=== PATIENT | female | born 1945 | race African-American/Black ===

== ENCOUNTER 2016-04-13 18:34 | Emergency (ER) | payer OTHER, MEDICAID ==
[~2016-04-13] VITALS: Ht 149.9 cm; Wt 77.1 kg
[~2016-04-13 18:34] MED LIST: ALB5IS NEB; CILO50TA PO; FLUT100M7 INH; HYDR-2035 PO; IPRASOL39 NEB; LEVO75TA6 PO; NITR0.4S31 SL; OMEP20TA44 PO; POTA20TA53 PO; Q-PAP PO; TRIA25TA3 PO; VERA120T6 PO; VORI200T PO; WARF3TAB20 PO
[2016-04-13 20:21] LABS: Basophils # (auto) 0.1 uL; Basophils % (auto) 0.8 % (0.0-2.0); DEFINITIVE VIEW TRANSMISSION; Eosinophils # (auto) 0.1 uL; Eosinophils % (auto) 1.4 % (0.0-7.0); Hematocrit 25.7 % (36.0-46.0); Hemoglobin 8.2 g/dL (12.2-16.2); Lymphocytes # (auto) 2.1 uL; Lymphocytes % (auto) 32.1 % (10.0-50.0); Mean Corpuscular Hemoglobin 25.9 pg (28.0-32.0); Mean Corpuscular Volume 80.8 fL (80.0-100.0); Mean Platelet Volume 6.1 fL (7.4-10.4); Monocytes % (auto) 15.6 % (0.0-12.0); Neutrophils # (auto) 3.3 uL; Neutrophils % (auto) 50.1 % (37.0-80.0); Platelet Count (auto) 584 10^3/uL (140-450); White Blood Cell 6.6 10^3/uL (4.4-10.8)
[2016-04-13 20:23] LABS: Red Cell Distribution Width 21.7 % (11.6-16.0)
[2016-04-13 20:28] LABS: Albumin 2.7 g/dL (3.4-5.0); BUN/Creatinine Ratio 19.7; Potassium 3.2 mmol/L (3.5-5.1)
[2016-04-13 20:30] LABS: Bilirubin, Total 0.1 mg/dL (0.2-1.0); Total Protein 7.2 g/dL (6.4-8.2)
[2016-04-13 20:39] LABS: Magnesium 0.9 mg/dL (1.6-2.6)
[2016-04-13 20:52] LABS: Anisocytosis Slight; Hypochromia Slight; Platelet Estimate Increased
[2016-04-14] MEDS ORDERED: LEVOFLOXACIN 500 MG TAB PO ONE (05:30)
[2016-04-14] MEDS ORDERED: POTASSIUM CHL 20 Meq TABLET PO ONE (05:30)
[2016-04-14 05:40] VITALS: BP 139/90
== END 2016-04-14 05:45 | disposition home or self-care (01) ==
LOC: ER 18:38
DX: I11.0 Hypertensive heart disease with heart failure (principal); I50.9 Heart failure, unspecified; M19.90 Unspecified osteoarthritis, unspecified site; E87.6 Hypokalemia; J06.9 Acute upper respiratory infection, unspecified; J45.909 Unspecified asthma, uncomplicated; J44.9 Chronic obstructive pulmonary disease, unspecified; K21.9 Gastro-esophageal reflux disease without esophagitis; E07.9 Disorder of thyroid, unspecified; Z90.49 Acquired absence of other specified parts of digestive tract
CPT/HCPCS: 36415; 71020; 80053; 83735; 84484; 85025; 85049

== ENCOUNTER 2016-05-10 08:45 | Inpatient (IN) | payer OTHER, MEDICAID ==
[~2016-05-10] VITALS: Ht 149.9 cm; Wt 98.6 kg
[2016-05-10 11:22] LABS: Partial Thromboplastin Time 35.2 sec (22.64-33.71)
[2016-05-10 11:32] LABS: Albumin 3.4 g/dL (3.4-5.0); Alkaline Phosphatase 210 U/L (45-117); Anion Gap 12 (5-15); Aspartate Aminotransferase 61 U/L (15-37); BUN/Creatinine Ratio 19.2; Bilirubin, Total 0.5 mg/dL (0.2-1.0); Blood Urea Nitrogen 14 mg/dL (7-18); Calcium 9.2 mg/dL (8.5-10.1); Carbon Dioxide 21 mmol/L (21-32); Chloride 109 mmol/L (98-107); GFR African American 101 mL/min; GFR Non-African American 84 mL/min; Glucose 105 mg/dL (74-106); Potassium 3.9 mmol/L (3.5-5.1); Sodium 142 mmol/L (136-145)
[2016-05-10 11:38] LABS: INR 2.33 (0.9-1.15)
[2016-05-10 12:04] LABS: Basophils # (auto) 0 uL; Basophils % (auto) 0.1 % (0.0-2.0); DEFINITIVE VIEW TRANSMISSION; Eosinophils # (auto) 0 uL; Eosinophils % (auto) 0.3 % (0.0-7.0); Hematocrit 28.2 % (36.0-46.0); Hemoglobin 8.5 g/dL (12.2-16.2); Lymphocytes # (auto) 0.8 uL; Lymphocytes % (auto) 6.4 % (10.0-50.0); Mean Corpuscular Hemoglobin 24.5 pg (28.0-32.0); Mean Corpuscular Hgb Conc. 30.3 g/dL (32.0-36.0); Mean Corpuscular Volume 80.9 fL (80.0-100.0); Mean Platelet Volume 6.5 fL (7.4-10.4); Monocytes # (auto) 0.6 uL; Monocytes % (auto) 4.7 % (0.0-12.0); Neutrophils # (auto) 11.6 uL; Neutrophils % (auto) 88.5 % (37.0-80.0); Platelet Count (auto) 587 10^3/uL (140-450); White Blood Cell 13.1 10^3/uL (4.4-10.8)
[2016-05-10 12:07] LABS: Red Cell Distribution Width 20.8 % (11.6-16.0)
[2016-05-10 14:51] LABS: Anisocytosis Moderate; Hypochromia Slight; Platelet Estimate Increased
[2016-05-10] MEDS ORDERED: SODIUM CHLORIDE 0.9% 500 ML IVB ONE (16:14)
[2016-05-10] MEDS ORDERED: PANTOPRAZOLE SODIUM 40 MG/10 ML VIAL IV STA (16:14)
[2016-05-10] MEDS ORDERED: ONDANSETRON HCL 4 MG/2 ML VIAL IV ONE (17:15)
[2016-05-10] MEDS ORDERED: MORPHINE SULFATE 4 MG/ML SYRG IV ONE (17:15)
[2016-05-10 18:27] LABS: Partial Thromboplastin Time 43.8 sec (22.64-33.71)
[2016-05-10 18:41] LABS: INR 2.14 (0.9-1.15)
[2016-05-10] MEDS ORDERED: ALBUTEROL SULF 2.5 MG/0.5ML(0.5%) NEB SOLN NEB PRN (18:45)
[2016-05-10] MEDS ORDERED: LORazepam 0.5 MG TAB PO PRN (18:45)
[2016-05-10] MEDS ORDERED: MORPHINE SULF INJ 2 MG/ML SYRINGE 1ML IV PRN ×2 (18:45)
[2016-05-10] MEDS ORDERED: PROMETHAZINE HCL 25 MG/ML 1ML IV PRN (18:45)
[2016-05-10] MEDS ORDERED: OSELTAMIVIR 75 MG CAP PO ONE (18:45)
[2016-05-10] MEDS ORDERED: HYDROcodone-ACET 5/325MG TAB PO PRN (18:45)
[2016-05-10] MEDS ORDERED: ACETAMINOPHEN 500 MG TAB PO PRN (18:45)
[2016-05-10] MEDS ORDERED: NITROGLYCERIN 0.4 MG SL TAB SL PRN (18:45)
[2016-05-10] MEDS ORDERED: TEMAZEPAM 15 MG CAP PO PRN (18:45)
[2016-05-10] MEDS ORDERED: LACTULOSE 20Gm/30ML SOLN PO PRN ×2 (18:45)
[2016-05-10 18:46] LABS: Amylase 42 U/L (25-115)
[2016-05-10] MEDS ORDERED: ASPirin 81 mg TAB PO ONE (19:00)
[2016-05-10] MEDS: SODIUM CHLORIDE 0.9% 1,000 ML IV SCH ×3 (19:03→22:49)
[2016-05-10] MEDS ORDERED: WARFARIN SODIUM 1 MG TAB PO ONE (19:15)
[2016-05-10] MEDS: LEVOFLOXACIN 500MG 100 ML IV SCH (19:36)
[2016-05-10 20:50] VITALS: BP 148/77
[2016-05-10] MEDS: ATORVASTATIN 20 MG TAB PO SCH (21:38)
[2016-05-10] MEDS: CILOSTAZOL 100 MG TAB PO SCH (21:38)
[2016-05-10 21:49] VITALS: BP 148/77
[2016-05-10] MEDS: BUDESONIDE (INHALATION) 0.5 MG/2 ML NEB NEB SCH (22:00)
[2016-05-11] MEDS: IPRATROPIUM BROM 0.5 MG/2.5ML INH SOL NEB SCH ×4 (01:20→21:06)
[2016-05-11] MEDS: ALBUTEROL SULF 2.5 MG/0.5ML(0.5%) NEB SOLN NEB SCH ×4 (01:20→21:06)
[2016-05-11 05:00] VITALS: BP 128/54
[2016-05-11] MEDS: LEVOTHYROXINE SODIUM 25 MCG TAB PO SCH (06:23)
[2016-05-11 06:30] LABS: Basophils # (auto) 0 uL; DEFINITIVE VIEW TRANSMISSION; Eosinophils # (auto) 0 uL; Eosinophils % (auto) 0.4 % (0.0-7.0); Hematocrit 23.9 % (36.0-46.0); Hemoglobin 7.3 g/dL (12.2-16.2); Lymphocytes % (auto) 10.7 % (10.0-50.0); Mean Corpuscular Hemoglobin 24.5 pg (28.0-32.0); Mean Corpuscular Hgb Conc. 30.4 g/dL (32.0-36.0); Mean Corpuscular Volume 80.4 fL (80.0-100.0); Mean Platelet Volume 6.2 fL (7.4-10.4); Monocytes % (auto) 10.9 % (0.0-12.0); Platelet Count (auto) 464 10^3/uL (140-450)
[2016-05-11 06:47] LABS: Partial Thromboplastin Time 50.8 sec (22.64-33.71)
[2016-05-11 06:56] LABS: Red Cell Distribution Width 20.8 % (11.6-16.0)
[2016-05-11 06:57] LABS: Cholesterol 128 mg/dL (<200); HDL Cholesterol 60 mg/dL (40-59); LDL Cholesterol 65 mg/dL (<100); Triglycerides 71 mg/dL (<150)
[2016-05-11 07:16] LABS: Prothrombin Time 20.6 sec (9.37-12.3)
[2016-05-11 07:46] LABS: Anisocytosis Moderate; Ovalocytes FEW; Platelet Estimate Increased
[2016-05-11 07:47] LABS: Hypochromia Moderate
[2016-05-11 08:00] VITALS: BP 121/65
[2016-05-11] MEDS ORDERED: ADENOSINE 66 MG in GIVE UN-DILUTED 0 ML IV STA (08:32)
[2016-05-11 09:28] VITALS: BP 121/65
[2016-05-11] MEDS: VORICONAZOLE 50 MG TAB PO SCH ×2 (10:00→16:58)
[2016-05-11] MEDS ORDERED: TRIAMTER PO SCH (10:00)
[2016-05-11] MEDS ORDERED: HYDROCHLOROTHIAZIDE PO SCH (10:00)
[2016-05-11] MEDS ORDERED: OSELTAMIVIR 75 MG CAP PO SCH (10:00)
[2016-05-11] MEDS: BUDESONIDE (INHALATION) 0.5 MG/2 ML NEB NEB SCH ×2 (10:03→21:06)
[2016-05-11] MEDS: LEVOFLOXACIN 500MG 100 ML IV SCH (12:03)
[2016-05-11] MEDS: ASPirin 81 mg TAB PO SCH (12:03)
[2016-05-11] MEDS: PANTOPRAZOLE 40 MG TAB PO SCH (12:03)
[2016-05-11] MEDS: POTASSIUM CHL 20 Meq TABLET PO SCH (12:03)
[2016-05-11] MEDS: VERAPAMIL HCL 120 mg ER tab PO SCH (12:04)
[2016-05-11] MEDS: CILOSTAZOL 100 MG TAB PO SCH ×2 (12:06→21:28)
[2016-05-11] MEDS: NITROGLYCERIN 0.2MG/HR TOPICAL PATCH TD SCH (12:06)
[2016-05-11 12:13] VITALS: BP 134/94
[2016-05-11] MEDS ORDERED: HYDR12.56 PO (15:32)
[2016-05-11] MEDS ORDERED: WARFARIN SODIUM 2 MG TAB PO ONE (17:00)
[2016-05-11] MEDS ORDERED: HCTZ 25 MG TAB PO ONE (17:00)
[2016-05-11] MEDS ORDERED: METH2.5T3 PO (17:02)
[2016-05-11 17:24] VITALS: BP 129/55
[2016-05-11] MEDS: ATORVASTATIN 20 MG TAB PO SCH (21:27)
[2016-05-11 22:00] VITALS: BP 116/45
[2016-05-12] VITALS (10 sets, daily range): BP systolic 121–141; BP diastolic 48–65
[2016-05-12] MEDS: LEVOTHYROXINE SODIUM 25 MCG TAB PO SCH (06:32)
[2016-05-12 06:50] LABS: Partial Thromboplastin Time 47.1 sec (22.64-33.71)
[2016-05-12 06:52] LABS: INR 2.14 (0.9-1.15)
[2016-05-12] MEDS: IPRATROPIUM BROM 0.5 MG/2.5ML INH SOL NEB SCH ×4 (07:14→23:50)
[2016-05-12] MEDS: ALBUTEROL SULF 2.5 MG/0.5ML(0.5%) NEB SOLN NEB SCH ×4 (07:14→23:50)
[2016-05-12] MEDS: BUDESONIDE (INHALATION) 0.5 MG/2 ML NEB NEB SCH ×2 (07:14→23:50)
[2016-05-12 07:38] LABS: Basophils # (auto) 0 uL; Basophils % (auto) 0.3 % (0.0-2.0); DEFINITIVE VIEW TRANSMISSION; Eosinophils # (auto) 0 uL; Eosinophils % (auto) 0.5 % (0.0-7.0); Hematocrit 22.8 % (36.0-46.0); Lymphocytes # (auto) 1.2 uL; Lymphocytes % (auto) 12.3 % (10.0-50.0); Mean Corpuscular Hemoglobin 24.4 pg (28.0-32.0); Mean Corpuscular Volume 81.1 fL (80.0-100.0); Mean Platelet Volume 6.4 fL (7.4-10.4); Monocytes % (auto) 10.8 % (0.0-12.0); Neutrophils # (auto) 7.2 uL; Neutrophils % (auto) 76.1 % (37.0-80.0); Platelet Count (auto) 417 10^3/uL (140-450); White Blood Cell 9.4 10^3/uL (4.4-10.8)
[2016-05-12 07:52] LABS: Red Cell Distribution Width 21.4 % (11.6-16.0)
[2016-05-12 07:53] LABS: Hemoglobin 6.9 g/dL (12.2-16.2)
[2016-05-12] MEDS: SODIUM CHLORIDE 0.9% 1,000 ML IV SCH (10:33)
[2016-05-12] MEDS: HCTZ 25 MG TAB PO SCH (10:46)
[2016-05-12] MEDS: NITROGLYCERIN 0.2MG/HR TOPICAL PATCH TD SCH (10:48)
[2016-05-12] MEDS: VERAPAMIL HCL 120 mg ER tab PO SCH (10:49)
[2016-05-12] MEDS: PANTOPRAZOLE 40 MG TAB PO SCH (10:49)
[2016-05-12] MEDS: ASPirin 81 mg TAB PO SCH (10:49)
[2016-05-12] MEDS: POTASSIUM CHL 20 Meq TABLET PO SCH (10:50)
[2016-05-12] MEDS: CILOSTAZOL 100 MG TAB PO SCH ×2 (10:50→21:57)
[2016-05-12] MEDS: LEVOFLOXACIN 500MG 100 ML IV SCH (10:51)
[2016-05-12 11:11] LABS: Anisocytosis Moderate; Hypochromia Moderate; Ovalocytes FEW; Platelet Estimate Adequate
[2016-05-12] MEDS: VORICONAZOLE 50 MG TAB PO SCH (11:18)
[2016-05-12] MEDS ORDERED: WARFARIN SODIUM 1 MG TAB PO ONE (17:00)
[2016-05-12] MEDS: ATORVASTATIN 20 MG TAB PO SCH (21:57)
[2016-05-13] VITALS (9 sets, daily range): BP systolic 132–149; BP diastolic 54–72
[2016-05-13] MEDS: IPRATROPIUM BROM 0.5 MG/2.5ML INH SOL NEB SCH ×4 (06:04→23:05)
[2016-05-13] MEDS: ALBUTEROL SULF 2.5 MG/0.5ML(0.5%) NEB SOLN NEB SCH ×4 (06:04→23:05)
[2016-05-13] MEDS: BUDESONIDE (INHALATION) 0.5 MG/2 ML NEB NEB SCH ×2 (06:12→23:05)
[2016-05-13 06:37] LABS: Partial Thromboplastin Time 44.8 sec (22.64-33.71)
[2016-05-13 06:42] LABS: INR 1.87 (0.9-1.15); Prothrombin Time 19.3 sec (9.37-12.3)
[2016-05-13 06:55] LABS: Basophils # (auto) 0 uL; Basophils % (auto) 0.1 % (0.0-2.0); DEFINITIVE VIEW TRANSMISSION; Eosinophils # (auto) 0.1 uL; Eosinophils % (auto) 1.2 % (0.0-7.0); Hematocrit 29.3 % (36.0-46.0); Hemoglobin 9.1 g/dL (12.2-16.2); Lymphocytes % (auto) 12.5 % (10.0-50.0); Mean Corpuscular Hemoglobin 25.6 pg (28.0-32.0); Mean Corpuscular Hgb Conc. 31.1 g/dL (32.0-36.0); Mean Corpuscular Volume 82.2 fL (80.0-100.0); Mean Platelet Volume 6.6 fL (7.4-10.4); Monocytes # (auto) 0.9 uL; Monocytes % (auto) 10.6 % (0.0-12.0); Neutrophils # (auto) 6.3 uL; Neutrophils % (auto) 75.6 % (37.0-80.0); Platelet Count (auto) 399 10^3/uL (140-450); White Blood Cell 8.4 10^3/uL (4.4-10.8)
[2016-05-13 06:56] LABS: Red Cell Distribution Width 20.1 % (11.6-16.0)
[2016-05-13] MEDS: SODIUM CHLORIDE 0.9% 1,000 ML IV SCH ×2 (07:08→13:13)
[2016-05-13] MEDS: LEVOTHYROXINE SODIUM 25 MCG TAB PO SCH (07:08)
[2016-05-13 08:53] LABS: Anisocytosis Slight; Giant Platelets Few; Hypochromia Slight; Ovalocytes FEW; Platelet Estimate Adequate
[2016-05-13] MEDS: NITROGLYCERIN 0.2MG/HR TOPICAL PATCH TD SCH (10:00)
[2016-05-13] MEDS: POTASSIUM CHL 20 Meq TABLET PO SCH (10:05)
[2016-05-13] MEDS: CILOSTAZOL 100 MG TAB PO SCH ×2 (10:05→21:40)
[2016-05-13] MEDS: PANTOPRAZOLE 40 MG TAB PO SCH (10:05)
[2016-05-13] MEDS: HCTZ 25 MG TAB PO SCH (10:06)
[2016-05-13] MEDS: VERAPAMIL HCL 120 mg ER tab PO SCH (10:07)
[2016-05-13] MEDS: LEVOFLOXACIN 500MG 100 ML IV SCH (10:07)
[2016-05-13] MEDS ORDERED: WARFARIN SODIUM 2 MG TAB PO ONE (17:00)
[2016-05-13] MEDS: VORICONAZOLE 50 MG TAB PO SCH (17:40)
[2016-05-13] MEDS: ATORVASTATIN 20 MG TAB PO SCH (21:40)
[2016-05-14 00:56] VITALS: BP 79/79
[2016-05-14 04:56] VITALS: BP 159/77
[2016-05-14] MEDS: SODIUM CHLORIDE 0.9% 1,000 ML IV SCH (05:27)
[2016-05-14 05:39] LABS: Basophils # (auto) 0.1 uL; DEFINITIVE VIEW TRANSMISSION; Eosinophils # (auto) 0.1 uL; Hematocrit 29.6 % (36.0-46.0); Hemoglobin 9.5 g/dL (12.2-16.2); Lymphocytes % (auto) 15.6 % (10.0-50.0); Mean Corpuscular Hgb Conc. 32.1 g/dL (32.0-36.0); Mean Platelet Volume 6.6 fL (7.4-10.4); Monocytes # (auto) 0.7 uL; Monocytes % (auto) 10.7 % (0.0-12.0); Neutrophils # (auto) 4.8 uL; Neutrophils % (auto) 71.7 % (37.0-80.0); Platelet Count (auto) 438 10^3/uL (140-450); White Blood Cell 6.7 10^3/uL (4.4-10.8)
[2016-05-14 05:43] LABS: Red Cell Distribution Width 20.5 % (11.6-16.0)
[2016-05-14 05:51] LABS: Partial Thromboplastin Time 29.2 sec (22.64-33.71)
[2016-05-14] MEDS: IPRATROPIUM BROM 0.5 MG/2.5ML INH SOL NEB SCH ×2 (05:57→11:38)
[2016-05-14] MEDS: ALBUTEROL SULF 2.5 MG/0.5ML(0.5%) NEB SOLN NEB SCH ×2 (05:57→11:38)
[2016-05-14] MEDS: BUDESONIDE (INHALATION) 0.5 MG/2 ML NEB NEB SCH (05:57)
[2016-05-14 06:11] LABS: INR 1.75 (0.9-1.15)
[2016-05-14] MEDS: LEVOTHYROXINE SODIUM 25 MCG TAB PO SCH (06:26)
[2016-05-14 06:52] LABS: Anisocytosis Slight; Ovalocytes FEW; Platelet Estimate Adequate
[2016-05-14 09:00] VITALS: BP 150/71
[2016-05-14] MEDS: LEVOFLOXACIN 500MG 100 ML IV SCH (09:54)
[2016-05-14] MEDS: NITROGLYCERIN 0.2MG/HR TOPICAL PATCH TD SCH (09:55)
[2016-05-14] MEDS: CILOSTAZOL 100 MG TAB PO SCH (09:55)
[2016-05-14] MEDS: VERAPAMIL HCL 120 mg ER tab PO SCH (09:56)
[2016-05-14] MEDS: POTASSIUM CHL 20 Meq TABLET PO SCH (09:56)
[2016-05-14] MEDS: HCTZ 25 MG TAB PO SCH (09:57)
[2016-05-14] MEDS: PANTOPRAZOLE 40 MG TAB PO SCH (10:01)
[2016-05-14 13:38] VITALS: BP 141/69
[2016-05-14] MEDS ORDERED: WARFARIN SODIUM 2.5 MG TAB PO ONE (17:00)
[2016-05-14 17:13] VITALS: BP 147/62
[2016-05-14 18:24] VITALS: BP 147/62
[2016-05-15] MEDS ORDERED: LEVOFLOXACIN 500 MG TAB PO SCH (10:00)
== END 2016-05-14 19:00 | disposition home or self-care (01) | DRG 191 ==
LOC: ER 08:47 → TELE 08:48 → TELE-EAST 20:10
PROVIDERS: ADMIT Internal Medicine; ATTEND Internal Medicine Pulmonary Disease
DX: J44.1 Chronic obstructive pulmonary disease with (acute) exacerbation (principal); B44.1 Other pulmonary aspergillosis; Z68.41 Body mass index [BMI] 40.0-44.9, adult; K21.9 Gastro-esophageal reflux disease without esophagitis; K44.9 Diaphragmatic hernia without obstruction or gangrene; E66.9 Obesity, unspecified; D64.9 Anemia, unspecified; E03.9 Hypothyroidism, unspecified; I10 Essential (primary) hypertension; I35.0 Nonrheumatic aortic (valve) stenosis; I48.0 Paroxysmal atrial fibrillation; I73.9 Peripheral vascular disease, unspecified; J45.909 Unspecified asthma, uncomplicated; K43.9 Ventral hernia without obstruction or gangrene; D47.3 Essential (hemorrhagic) thrombocythemia; D72.829 Elevated white blood cell count, unspecified; M54.9 Dorsalgia, unspecified; G89.29 Other chronic pain; M19.90 Unspecified osteoarthritis, unspecified site; Z82.3 Family history of stroke; Z82.49 Family history of ischemic heart disease and other diseases of the circulatory system; Z83.3 Family history of diabetes mellitus; Z86.711 Personal history of pulmonary embolism; Z86.718 Personal history of other venous thrombosis and embolism; Z87.891 Personal history of nicotine dependence; Z88.6 Allergy status to analgesic agent; Z88.0 Allergy status to penicillin; Z88.8 Allergy status to other drugs, medicaments and biological substances; Z79.899 Other long term (current) drug therapy; Z90.49 Acquired absence of other specified parts of digestive tract; Z98.49 Cataract extraction status, unspecified eye; Z90.89 Acquired absence of other organs; Z80.9 Family history of malignant neoplasm, unspecified
CPT/HCPCS: 36415; 71010; 71020; 74176; 78452; 80053; 80061; 82150; 82270; 82550; 82728; 83690; 84484; 85025; 85379; 85610; 85652; 85730; 86141; 86850; 86900; 86901; 86920; 87070; 87205; 87400; 93005; 93017; 93306; 94640; 94660; 94761; 96361; 96374; 96375; C9113; J0153; J1956; J2405

== ENCOUNTER 2016-10-29 10:58 | Inpatient (IN) | payer OTHER, MEDICAID ==
[~2016-10-29] VITALS: Ht 149.9 cm; Wt 67.8 kg
[~2016-10-29 10:58] MED LIST changes: +DOCU-94 PO; +FURO20TA3 PO; +HYDR12.56 PO; +LOSA25TA9 PO; +METH2.5T3 PO; +ONDA4TAB5 PO; -TRIA25TA3 PO
[2016-10-29] MEDS ORDERED: SODIUM CHLORIDE 0.9% 1,000 ML IV ONE (11:11)
[2016-10-29] MEDS ORDERED: ONDANSETRON ODT 4 MG TAB PO ONE (11:15)
[2016-10-29] MEDS ORDERED: LORazepam 2MG/ML-1ML VIAL IV ONE (11:15)
[2016-10-29 12:03] LABS: Basophils # (auto) 0 uL; Basophils % (auto) 0.6 % (0.0-2.0); CONDITION Y; DEFINITIVE SEE PRINTOUT; Eosinophils # (auto) 0 uL; Eosinophils % (auto) 0.7 % (0.0-7.0); Hematocrit 27.2 % (36.0-46.0); Hemoglobin 9.2 g/dL (12.2-16.2); Lymphocytes # (auto) 1.2 uL; Lymphocytes % (auto) 20.9 % (10.0-50.0); Mean Corpuscular Hgb Conc. 33.9 g/dL (32.0-36.0); Mean Corpuscular Volume 91.5 fL (80.0-100.0); Mean Platelet Volume 6.8 fL (7.4-10.4); Monocytes # (auto) 0.5 uL; Monocytes % (auto) 8.5 % (0.0-12.0); Neutrophils # (auto) 4.1 uL; Neutrophils % (auto) 69.3 % (37.0-80.0); Platelet Count (auto) 434 10^3/uL (140-450); White Blood Cell 5.9 10^3/uL (4.4-10.8)
[2016-10-29 12:08] LABS: Red Cell Distribution Width 21.8 % (11.6-16.0)
[2016-10-29 12:15] LABS: INR 3.28 (0.9-1.15); Partial Thromboplastin Time 52.4 sec (22.64-33.71)
[2016-10-29 12:19] LABS: Prothrombin Time 36.2 sec (9.37-12.3)
[2016-10-29 12:40] LABS: Alkaline Phosphatase 100 U/L (45-117); Anion Gap 14 (5-15); Aspartate Aminotransferase 25 U/L (15-37); Bilirubin, Total 0.4 mg/dL (0.2-1.0); Blood Urea Nitrogen 12 mg/dL (7-18); Carbon Dioxide 21 mmol/L (21-32); Chloride 103 mmol/L (98-107); GFR African American 70 mL/min; GFR Non-African American 58 mL/min; Glucose 61 mg/dL (74-106); Potassium 3.1 mmol/L (3.5-5.1); Sodium 138 mmol/L (136-145); Total Protein 7.7 g/dL (6.4-8.2)
[2016-10-29 12:52] LABS: Calcium 5.6 mg/dL (8.5-10.1)
[2016-10-29 13:21] LABS: Anisocytosis Slight; Burr Cells FEW; Platelet Estimate Adequate
[2016-10-29] MEDS ORDERED: NITROGLYCERIN 0.4 MG SL TAB SL PRN (13:30)
[2016-10-29] MEDS ORDERED: VANCOMYCIN PER PHARMACY 0 MG IV SCH (13:30)
[2016-10-29] MEDS ORDERED: MORPHINE SULF INJ 2 MG/ML SYRINGE 1ML IV PRN (13:30)
[2016-10-29] MEDS ORDERED: CALCIUM GLUC 4.65meq/50ml D5AE 50 ML IV ONE (13:30)
[2016-10-29] MEDS ORDERED: POTASSIUM CHL 10% (20 MEQ/15ML) ORAL SOLN PO ONE (13:30)
[2016-10-29] MEDS ORDERED: ONDANSETRON HCL 4 MG/2 ML VIAL IV PRN (13:30)
[2016-10-29] MEDS ORDERED: ACETAMINOPHEN 650 mg PER 20 mL UD PO PRN (13:30)
[2016-10-29 14:05] LABS: Basophils # (auto) 0 uL; Basophils % (auto) 0.6 % (0.0-2.0); CONDITION Y; DEFINITIVE SEE PRINTOUT; Eosinophils # (auto) 0 uL; Eosinophils % (auto) 0.6 % (0.0-7.0); Hematocrit 27.6 % (36.0-46.0); Hemoglobin 9.1 g/dL (12.2-16.2); Lymphocytes % (auto) 18.1 % (10.0-50.0); Mean Corpuscular Hemoglobin 30.5 pg (28.0-32.0); Mean Corpuscular Hgb Conc. 33.1 g/dL (32.0-36.0); Mean Corpuscular Volume 92.2 fL (80.0-100.0); Mean Platelet Volume 6.4 fL (7.4-10.4); Monocytes # (auto) 0.4 uL; Monocytes % (auto) 6.8 % (0.0-12.0); Neutrophils # (auto) 4.2 uL; Neutrophils % (auto) 73.9 % (37.0-80.0); Platelet Count (auto) 415 10^3/uL (140-450); White Blood Cell 5.7 10^3/uL (4.4-10.8)
[2016-10-29 14:10] LABS: Red Cell Distribution Width 22.5 % (11.6-16.0)
[2016-10-29] MEDS: SODIUM CHLORIDE 0.9% 1,000 ML IV SCH (14:15)
[2016-10-29 14:21] LABS: INR 3.69 (0.9-1.15); Partial Thromboplastin Time 41.6 sec (22.64-33.71)
[2016-10-29 14:22] LABS: Prothrombin Time 40.8 sec (9.37-12.3)
[2016-10-29 14:27] LABS: Albumin 2.9 g/dL (3.4-5.0); Alkaline Phosphatase 96 U/L (45-117); Anion Gap 12 (5-15); Aspartate Aminotransferase 23 U/L (15-37); BUN/Creatinine Ratio 12.1; Bilirubin, Total 0.4 mg/dL (0.2-1.0); Blood Urea Nitrogen 11 mg/dL (7-18); Carbon Dioxide 22 mmol/L (21-32); Chloride 104 mmol/L (98-107); GFR African American 78 mL/min; GFR Non-African American 65 mL/min; Glucose 56 mg/dL (74-106); Sodium 138 mmol/L (136-145); Total Protein 7.3 g/dL (6.4-8.2)
[2016-10-29 14:29] LABS: Potassium 2.8 mmol/L (3.5-5.1)
[2016-10-29 14:30] LABS: Calcium 5.5 mg/dL (8.5-10.1)
[2016-10-29 14:52] LABS: Anisocytosis Moderate; Ovalocytes FEW; Platelet Estimate Adequate
[2016-10-29 14:53] LABS: Burr Cells FEW
[2016-10-29 14:58] LABS: B-Type Natriuretic Peptide 15.99 pg/mL (0-100)
[2016-10-29 15:00] LABS: Temperature: 23.1 C (20.0-25.0)
[2016-10-29] MEDS ORDERED: VANCOMYCIN 750 MG in D5W 5% 250 ML IV ONE (16:00)
[2016-10-29] MEDS: ALBUTEROL SULF 2.5 MG/0.5ML(0.5%) NEB SOLN NEB PRN (18:45)
[2016-10-29 19:36] LABS: Urine RBC None Seen /hpf (0 - 4)
[2016-10-29 19:57] LABS: Urine Bilirubin Negative (Negative); Urine Blood Negative /uL (Negative); Urine Color Yellow (Yellow); Urine Glucose Normal (Normal); Urine Hyaline Cast MANY /lpf (0 - 2); Urine Ketone Negative (Negative); Urine Mucus FEW (None Seen); Urine Nitrite Negative (Negative); Urine Squamous Epithelial Cell FEW /hpf (<5); Urine Urobilinogen Normal (Negative)
[2016-10-29 21:13] LABS: Potassium 3.3 mmol/L (3.5-5.1)
[2016-10-29 21:20] LABS: Calcium 5.4 mg/dL (8.5-10.1)
[2016-10-29 21:22] VITALS: BP 116/59
[2016-10-29 22:10] VITALS: BP 116/59
[2016-10-29 23:04] VITALS: BP 114/58
[2016-10-30 05:00] VITALS: BP 108/51
[2016-10-30] MEDS: HYDROcodone-ACET 5/325MG TAB PO PRN ×2 (05:04→14:53)
[2016-10-30 06:08] LABS: Basophils # (auto) 0 uL; Basophils % (auto) 0.7 % (0.0-2.0); CONDITION Y; DEFINITIVE SEE PRINTOUT; Eosinophils # (auto) 0 uL; Eosinophils % (auto) 0.9 % (0.0-7.0); Hematocrit 27.4 % (36.0-46.0); Hemoglobin 8.7 g/dL (12.2-16.2); Lymphocytes # (auto) 1.5 uL; Lymphocytes % (auto) 35.2 % (10.0-50.0); Mean Corpuscular Hemoglobin 30.2 pg (28.0-32.0); Mean Corpuscular Hgb Conc. 31.9 g/dL (32.0-36.0); Mean Corpuscular Volume 94.9 fL (80.0-100.0); Mean Platelet Volume 6.8 fL (7.4-10.4); Monocytes # (auto) 0.2 uL; Monocytes % (auto) 5.2 % (0.0-12.0); Neutrophils # (auto) 2.4 uL; Platelet Count (auto) 409 10^3/uL (140-450); White Blood Cell 4.2 10^3/uL (4.4-10.8)
[2016-10-30 06:11] LABS: Red Cell Distribution Width 21.8 % (11.6-16.0)
[2016-10-30 06:23] LABS: INR 3.22 (0.9-1.15)
[2016-10-30 06:26] LABS: Prothrombin Time 35.5 sec (9.37-12.3)
[2016-10-30 06:27] LABS: Albumin 2.7 g/dL (3.4-5.0); BUN/Creatinine Ratio 14.7; Potassium 3.4 mmol/L (3.5-5.1)
[2016-10-30 06:30] LABS: Bilirubin, Total 0.4 mg/dL (0.2-1.0); Total Protein 6.6 g/dL (6.4-8.2)
[2016-10-30 06:31] LABS: Calcium 5.7 mg/dL (8.5-10.1)
[2016-10-30 06:39] LABS: Platelet Estimate Adequate
[2016-10-30 06:40] LABS: Anisocytosis Moderate; Hypersegmented Neutrophils Present; Ovalocytes FEW
[2016-10-30] MEDS: ALBUTEROL SULF 2.5 MG/0.5ML(0.5%) NEB SOLN NEB PRN (07:04)
[2016-10-30] MEDS ORDERED: CALCIUM CHL 100MG/ML 2,000 MG in D5W 5% 100 ML IV ONE (07:30)
[2016-10-30 08:44] VITALS: BP 110/73
[2016-10-30] MEDS ORDERED: POTASSIUM CHL 20 Meq TABLET PO ONE (09:30)
[2016-10-30] MEDS: PANTOPRAZOLE 40 MG TAB PO SCH (09:39)
[2016-10-30] MEDS: LEVOTHYROXINE SODIUM 25 MCG TAB PO SCH (09:39)
[2016-10-30] MEDS: FUROSEMIDE 20 MG/2 ML VIAL IV SCH (09:39)
[2016-10-30] MEDS: LOSARTAN POTASSIUM 25 MG TAB PO SCH (09:40)
[2016-10-30] MEDS: FOLIC ACID 1 MG TAB PO SCH (09:40)
[2016-10-30 12:00] VITALS: BP 108/57
[2016-10-30] MEDS: VANCOMYCIN 1GM/250ML D5W 250 ML IV SCH (12:06)
[2016-10-30] MEDS: SODIUM CHLORIDE 0.9% 1,000 ML IV SCH (13:30)
[2016-10-30] MEDS: cefTRIAXone 1GM/50ML D5W 50 ML IV SCH (14:53)
[2016-10-30 17:00] VITALS: BP 106/73
[2016-10-30 22:00] VITALS: BP 130/63
[2016-10-31] MEDS ORDERED: PROMETHAZINE HCL 25 MG/ML 1ML IV PRN (01:30)
[2016-10-31] MEDS ORDERED: MORPHINE SULF INJ 2 MG/ML SYRINGE 1ML IV PRN (01:30)
[2016-10-31 04:00] VITALS: BP 123/63
[2016-10-31 06:17] LABS: Basophils # (auto) 0 uL; Basophils % (auto) 0.6 % (0.0-2.0); CONDITION Y; DEFINITIVE SEE PRINTOUT; Eosinophils # (auto) 0 uL; Eosinophils % (auto) 1.1 % (0.0-7.0); Hematocrit 30.5 % (36.0-46.0); Hemoglobin 9.9 g/dL (12.2-16.2); Lymphocytes # (auto) 0.9 uL; Lymphocytes % (auto) 24.2 % (10.0-50.0); Mean Corpuscular Hemoglobin 30.5 pg (28.0-32.0); Mean Corpuscular Hgb Conc. 32.5 g/dL (32.0-36.0); Mean Corpuscular Volume 94.1 fL (80.0-100.0); Mean Platelet Volume 6.9 fL (7.4-10.4); Monocytes # (auto) 0.3 uL; Monocytes % (auto) 6.8 % (0.0-12.0); Neutrophils # (auto) 2.6 uL; Neutrophils % (auto) 67.3 % (37.0-80.0); Platelet Count (auto) 388 10^3/uL (140-450); White Blood Cell 3.9 10^3/uL (4.4-10.8)
[2016-10-31 06:33] LABS: INR 2.53 (0.9-1.15)
[2016-10-31 06:34] LABS: Albumin 2.3 g/dL (3.4-5.0); Calcium 6.9 mg/dL (8.5-10.1); Potassium 3.9 mmol/L (3.5-5.1)
[2016-10-31 06:36] LABS: BUN/Creatinine Ratio 14.3; Red Cell Distribution Width 21.7 % (11.6-16.0)
[2016-10-31 06:40] LABS: Bilirubin, Total 0.5 mg/dL (0.2-1.0); Total Protein 6.2 g/dL (6.4-8.2)
[2016-10-31 06:49] LABS: Prothrombin Time 27.8 sec (9.37-12.3)
[2016-10-31 07:16] LABS: Anisocytosis Moderate; Burr Cells FEW; Ovalocytes FEW; Platelet Estimate Adequate; Schistocytes FEW
[2016-10-31 08:00] VITALS: BP_SYST 107; BP_SYST 110; BP_DIAS 58; BP_DIAS 73
[2016-10-31] MEDS: VANCOMYCIN 1GM/250ML D5W 250 ML IV SCH (09:05)
[2016-10-31] MEDS: PANTOPRAZOLE 40 MG TAB PO SCH (10:23)
[2016-10-31] MEDS: FOLIC ACID 1 MG TAB PO SCH (10:23)
[2016-10-31] MEDS: LEVOTHYROXINE SODIUM 25 MCG TAB PO SCH (10:23)
[2016-10-31] MEDS: cefTRIAXone 1GM/50ML D5W 50 ML IV SCH (10:25)
[2016-10-31] MEDS: SODIUM CHLORIDE 0.9% 1,000 ML IV SCH ×2 (11:00→23:46)
[2016-10-31 13:00] VITALS: BP 111/54
[2016-10-31] MEDS: HYDROcodone-ACET 5/325MG TAB PO PRN ×2 (13:47→20:19)
[2016-10-31] MEDS: LOSARTAN POTASSIUM 25 MG TAB PO SCH (13:47)
[2016-10-31] MEDS: FUROSEMIDE 20 MG/2 ML VIAL IV SCH (13:48)
[2016-10-31 16:38] VITALS: BP 108/60
[2016-10-31 20:00] VITALS: BP 104/76
[2016-10-31 22:00] VITALS: BP 104/76
[2016-11-01 05:30] VITALS: BP 113/66
[2016-11-01] MEDS: LEVOTHYROXINE SODIUM 25 MCG TAB PO SCH (06:07)
[2016-11-01] MEDS: HYDROcodone-ACET 5/325MG TAB PO PRN ×2 (06:08→23:59)
[2016-11-01 06:53] LABS: Basophils # (auto) 0 uL; Basophils % (auto) 0.9 % (0.0-2.0); CONDITION Y; DEFINITIVE SEE PRINTOUT; Eosinophils # (auto) 0.1 uL; Eosinophils % (auto) 1.7 % (0.0-7.0); Hematocrit 27.4 % (36.0-46.0); Hemoglobin 9.1 g/dL (12.2-16.2); Lymphocytes # (auto) 0.9 uL; Mean Corpuscular Hemoglobin 31.2 pg (28.0-32.0); Mean Corpuscular Hgb Conc. 33.3 g/dL (32.0-36.0); Mean Corpuscular Volume 93.7 fL (80.0-100.0); Mean Platelet Volume 6.9 fL (7.4-10.4); Monocytes # (auto) 0.4 uL; Monocytes % (auto) 8.7 % (0.0-12.0); Neutrophils # (auto) 2.7 uL; Neutrophils % (auto) 66.7 % (37.0-80.0); Platelet Count (auto) 400 10^3/uL (140-450); White Blood Cell 4.1 10^3/uL (4.4-10.8)
[2016-11-01 07:12] LABS: Albumin 2.2 g/dL (3.4-5.0); BUN/Creatinine Ratio 14.6; Bilirubin, Total 0.4 mg/dL (0.2-1.0); Calcium 6.3 mg/dL (8.5-10.1); Potassium 3.5 mmol/L (3.5-5.1)
[2016-11-01 08:00] VITALS: BP 115/44
[2016-11-01 08:03] LABS: Red Cell Distribution Width 20.8 % (11.6-16.0)
[2016-11-01 08:04] LABS: Anisocytosis Slight; Platelet Estimate Adequate
[2016-11-01 08:30] VITALS: BP 115/74
[2016-11-01] MEDS: FUROSEMIDE 20 MG/2 ML VIAL IV SCH (10:00)
[2016-11-01] MEDS: LOSARTAN POTASSIUM 25 MG TAB PO SCH (10:00)
[2016-11-01] MEDS: ALBUTEROL SULF 2.5 MG/0.5ML(0.5%) NEB SOLN NEB PRN (10:00)
[2016-11-01] MEDS: PANTOPRAZOLE 40 MG TAB PO SCH (10:03)
[2016-11-01] MEDS: FOLIC ACID 1 MG TAB PO SCH (10:03)
[2016-11-01] MEDS: VANCOMYCIN 1GM/250ML D5W 250 ML IV SCH (10:04)
[2016-11-01 12:03] VITALS: BP 114/58
[2016-11-01] MEDS: cefTRIAXone 1GM/50ML D5W 50 ML IV SCH (13:33)
[2016-11-01] MEDS: SODIUM CHLORIDE 0.9% 1,000 ML IV SCH (15:52)
[2016-11-01 16:17] VITALS: BP 119/62
[2016-11-01 22:00] VITALS: BP 124/71
[2016-11-02] VITALS (8 sets, daily range): BP systolic 87–132; BP diastolic 53–75
[2016-11-02] MEDS: VANCOMYCIN 1GM/250ML D5W 250 ML IV SCH ×2 (04:19→22:26)
[2016-11-02] MEDS: SODIUM CHLORIDE 0.9% 1,000 ML IV SCH ×2 (05:54→10:12)
[2016-11-02] MEDS: LEVOTHYROXINE SODIUM 25 MCG TAB PO SCH (06:33)
[2016-11-02 06:59] LABS: BUN/Creatinine Ratio 16.3; Potassium 3.7 mmol/L (3.5-5.1)
[2016-11-02 08:46] LABS: INR 1.44 (0.9-1.15)
[2016-11-02 08:51] LABS: Prothrombin Time 15.7 sec (9.37-12.3)
[2016-11-02] MEDS: LOSARTAN POTASSIUM 25 MG TAB PO SCH (10:00)
[2016-11-02] MEDS: cefTRIAXone 1GM/50ML D5W 50 ML IV SCH (10:12)
[2016-11-02] MEDS: FOLIC ACID 1 MG TAB PO SCH (10:13)
[2016-11-02] MEDS: PANTOPRAZOLE 40 MG TAB PO SCH (10:13)
[2016-11-02] MEDS: FUROSEMIDE 20 MG/2 ML VIAL IV SCH (10:13)
[2016-11-02] MEDS: diphenhdrAMINE HCL 25 MG CAP PO PRN (15:01)
[2016-11-02] MEDS: ALBUTEROL SULF 2.5 MG/0.5ML(0.5%) NEB SOLN NEB PRN (19:45)
[2016-11-02] MEDS ORDERED: diphenhdrAMINE HCL 25 MG CAP PO ONE (22:00)
[2016-11-03 04:54] VITALS: BP 99/52
[2016-11-03] MEDS: LEVOTHYROXINE SODIUM 25 MCG TAB PO SCH (06:35)
[2016-11-03 06:49] LABS: Basophils # (auto) 0 uL; Basophils % (auto) 0.6 % (0.0-2.0); CONDITION Y; DEFINITIVE SEE PRINTOUT; Eosinophils # (auto) 0.1 uL; Eosinophils % (auto) 2.3 % (0.0-7.0); Hematocrit 25.6 % (36.0-46.0); Hemoglobin 8.5 g/dL (12.2-16.2); Lymphocytes # (auto) 1.3 uL; Mean Corpuscular Volume 93.9 fL (80.0-100.0); Mean Platelet Volume 6.5 fL (7.4-10.4); Monocytes # (auto) 0.6 uL; Monocytes % (auto) 15.3 % (0.0-12.0); Neutrophils # (auto) 2.1 uL; Neutrophils % (auto) 50.8 % (37.0-80.0); Platelet Count (auto) 347 10^3/uL (140-450); SUSPECT SEE PRINTOUT; White Blood Cell 4.2 10^3/uL (4.4-10.8)
[2016-11-03 06:50] LABS: Red Cell Distribution Width 20.5 % (11.6-16.0)
[2016-11-03] MEDS: ALBUTEROL SULF 2.5 MG/0.5ML(0.5%) NEB SOLN NEB PRN ×2 (06:54→20:02)
[2016-11-03 06:59] LABS: BUN/Creatinine Ratio 17.1; Potassium 3.2 mmol/L (3.5-5.1)
[2016-11-03 07:01] LABS: Total Protein 5.6 g/dL (6.4-8.2)
[2016-11-03 07:19] LABS: Bilirubin, Total 0.4 mg/dL (0.2-1.0)
[2016-11-03 07:38] LABS: Anisocytosis Slight; Macrocytosis Slight; Platelet Estimate Adequate; Polychromasia Slight
[2016-11-03 08:00] VITALS: BP 107/53
[2016-11-03] MEDS: FOLIC ACID 1 MG TAB PO SCH (09:46)
[2016-11-03] MEDS: cefTRIAXone 1GM/50ML D5W 50 ML IV SCH (09:46)
[2016-11-03] MEDS: FUROSEMIDE 20 MG/2 ML VIAL IV SCH (09:46)
[2016-11-03] MEDS: PANTOPRAZOLE 40 MG TAB PO SCH (09:46)
[2016-11-03] MEDS: LOSARTAN POTASSIUM 25 MG TAB PO SCH (10:00)
[2016-11-03] MEDS ORDERED: POTASSIUM CHLORIDE 40 MEQ, LIDOCAINE 1% (LOCAL ANESTH.) 4 ML in SODIUM CHL 0.9% 250 ML IV ONE (10:30)
[2016-11-03] MEDS: SODIUM CHLORIDE 0.9% 1,000 ML IV SCH ×2 (10:30→20:22)
[2016-11-03 11:20] LABS: INR 1.11 (0.9-1.15); Partial Thromboplastin Time 30.8 sec (22.64-33.71); Prothrombin Time 12.1 sec (9.37-12.3)
[2016-11-03 13:00] VITALS: BP 136/76
[2016-11-03] MEDS: VANCOMYCIN 1GM/250ML D5W 250 ML IV SCH (16:00)
[2016-11-03 17:00] VITALS: BP 124/70
[2016-11-03] MEDS ORDERED: WARFARIN SODIUM 1 MG TAB PO SCH (17:00)
[2016-11-03 22:00] VITALS: BP 124/58
[2016-11-03] MEDS: diphenhdrAMINE HCL 25 MG CAP PO PRN (22:38)
[2016-11-04 05:00] VITALS: BP 110/54
[2016-11-04 06:02] LABS: Basophils # (auto) 0 uL; Basophils % (auto) 0.5 % (0.0-2.0); CONDITION Y; DEFINITIVE SEE PRINTOUT; Eosinophils # (auto) 0.1 uL; Hematocrit 25.4 % (36.0-46.0); Hemoglobin 8.4 g/dL (12.2-16.2); Lymphocytes % (auto) 24.2 % (10.0-50.0); Mean Corpuscular Hemoglobin 31.3 pg (28.0-32.0); Mean Corpuscular Hgb Conc. 33.1 g/dL (32.0-36.0); Mean Corpuscular Volume 94.7 fL (80.0-100.0); Mean Platelet Volume 6.6 fL (7.4-10.4); Monocytes # (auto) 0.6 uL; Monocytes % (auto) 14.4 % (0.0-12.0); Neutrophils # (auto) 2.5 uL; Neutrophils % (auto) 58.9 % (37.0-80.0); Platelet Count (auto) 304 10^3/uL (140-450); White Blood Cell 4.3 10^3/uL (4.4-10.8)
[2016-11-04 06:04] LABS: Red Cell Distribution Width 20.1 % (11.6-16.0)
[2016-11-04 06:13] LABS: INR 1.1 (0.9-1.15)
[2016-11-04 06:27] LABS: Potassium 3.3 mmol/L (3.5-5.1)
[2016-11-04 06:37] LABS: BUN/Creatinine Ratio 17.9; Bilirubin, Total 0.4 mg/dL (0.2-1.0); Total Protein 5.5 g/dL (6.4-8.2)
[2016-11-04] MEDS: LEVOTHYROXINE SODIUM 25 MCG TAB PO SCH (06:41)
[2016-11-04 07:59] LABS: Platelet Estimate Adequate
[2016-11-04 08:00] LABS: Anisocytosis Slight
[2016-11-04 08:14] LABS: Ovalocytes FEW
[2016-11-04 09:00] VITALS: BP 125/50
[2016-11-04] MEDS: ALBUTEROL SULF 2.5 MG/0.5ML(0.5%) NEB SOLN NEB PRN ×2 (09:16→18:34)
[2016-11-04] MEDS: FOLIC ACID 1 MG TAB PO SCH (10:00)
[2016-11-04] MEDS: FUROSEMIDE 20 MG/2 ML VIAL IV SCH (10:00)
[2016-11-04] MEDS: cefTRIAXone 1GM/50ML D5W 50 ML IV SCH (10:00)
[2016-11-04] MEDS: PANTOPRAZOLE 40 MG TAB PO SCH (10:00)
[2016-11-04] MEDS: LOSARTAN POTASSIUM 25 MG TAB PO SCH (10:00)
[2016-11-04] MEDS ORDERED: POTASSIUM CHL 20 Meq TABLET PO SCH (12:21)
[2016-11-04 13:00] VITALS: BP 140/65
[2016-11-04] MEDS: VANCOMYCIN 1GM/250ML D5W 250 ML IV SCH ×2 (13:42→21:37)
[2016-11-04] MEDS: SODIUM CHLORIDE 0.9% 1,000 ML IV SCH ×2 (15:06→21:38)
[2016-11-04 17:00] VITALS: BP 134/74
[2016-11-04] MEDS ORDERED: WARFARIN SODIUM 2 MG TAB PO SCH (17:00)
[2016-11-04 18:37] VITALS: BP 134/74
[2016-11-04 20:00] VITALS: BP 123/58
[2016-11-04] MEDS: CLINDAMYCIN HCL 150 MG CAP PO SCH (21:37)
[2016-11-04] MEDS: POTASSIUM CHL 20 Meq TABLET PO SCH (21:37)
[2016-11-04] MEDS ORDERED: POTASSIUM CHL 20 Meq TABLET PO ONE (22:00)
[2016-11-05] MEDS: HYDROcodone-ACET 5/325MG TAB PO PRN ×2 (04:42→13:33)
[2016-11-05 04:55] VITALS: BP 124/52
[2016-11-05 06:14] LABS: Basophils # (auto) 0 uL; Basophils % (auto) 0.3 % (0.0-2.0); CONDITION Y; DEFINITIVE SEE PRINTOUT; Eosinophils # (auto) 0 uL; Eosinophils % (auto) 0.7 % (0.0-7.0); Hematocrit 25.2 % (36.0-46.0); Hemoglobin 8.4 g/dL (12.2-16.2); Lymphocytes % (auto) 14.7 % (10.0-50.0); Mean Corpuscular Hemoglobin 31.2 pg (28.0-32.0); Mean Corpuscular Hgb Conc. 33.3 g/dL (32.0-36.0); Mean Corpuscular Volume 93.7 fL (80.0-100.0); Monocytes # (auto) 0.7 uL; Monocytes % (auto) 10.1 % (0.0-12.0); Neutrophils # (auto) 5.1 uL; Neutrophils % (auto) 74.2 % (37.0-80.0); Platelet Count (auto) 320 10^3/uL (140-450); Red Cell Distribution Width 19.4 % (11.6-16.0); White Blood Cell 6.9 10^3/uL (4.4-10.8)
[2016-11-05] MEDS: LEVOTHYROXINE SODIUM 25 MCG TAB PO SCH (06:23)
[2016-11-05] MEDS: CLINDAMYCIN HCL 150 MG CAP PO SCH (06:23)
[2016-11-05 06:27] LABS: INR 1.1 (0.9-1.15); Partial Thromboplastin Time 30.3 sec (22.64-33.71)
[2016-11-05 06:36] LABS: Potassium 3.9 mmol/L (3.5-5.1)
[2016-11-05 06:45] LABS: BUN/Creatinine Ratio 16.3; Calcium 6.2 mg/dL (8.5-10.1)
[2016-11-05 08:00] VITALS: BP 117/60
[2016-11-05 09:00] VITALS: BP 117/65
[2016-11-05] MEDS: PANTOPRAZOLE 40 MG TAB PO SCH (09:57)
[2016-11-05] MEDS: POTASSIUM CHL 20 Meq TABLET PO SCH (09:57)
[2016-11-05] MEDS: FOLIC ACID 1 MG TAB PO SCH (09:58)
[2016-11-05] MEDS: LOSARTAN POTASSIUM 25 MG TAB PO SCH (09:58)
[2016-11-05] MEDS: FUROSEMIDE 20 MG/2 ML VIAL IV SCH (09:58)
[2016-11-05] MEDS: cefTRIAXone 1GM/50ML D5W 50 ML IV SCH (09:58)
[2016-11-05 10:30] VITALS: BP 117/60
[2016-11-05] MEDS: ALBUTEROL SULF 2.5 MG/0.5ML(0.5%) NEB SOLN NEB PRN (10:47)
[2016-11-05 12:00] VITALS: BP 110/60
[2016-11-05] MEDS ORDERED: WARFARIN SODIUM 2.5 MG TAB PO ONE ×2 (17:00)
== END 2016-11-05 14:50 | disposition home or self-care (01) | DRG 602 ==
LOC: ER 10:58 → TELE 10:59 → TELE-EAST 21:22 → EAST 11-03 23:56
PROVIDERS: ADMIT Internal Medicine; ATTEND Internal Medicine
PROC: 0W9F3ZZ Drainage of Abdominal Wall, Percutaneous Approach (ICD-10-PCS; principal; 2016-10-31)
DX: L02.211 Cutaneous abscess of abdominal wall (principal); E43 Unspecified severe protein-calorie malnutrition; I48.91 Unspecified atrial fibrillation; J44.9 Chronic obstructive pulmonary disease, unspecified; R18.8 Other ascites; I67.2 Cerebral atherosclerosis; E83.51 Hypocalcemia; L03.113 Cellulitis of right upper limb; T80.29XA Infection following other infusion, transfusion and therapeutic injection, initial encounter; D63.8 Anemia in other chronic diseases classified elsewhere; I10 Essential (primary) hypertension; Y93.89 Activity, other specified; X58.XXXA Exposure to other specified factors, initial encounter; S50.821A Blister (nonthermal) of right forearm, initial encounter; M19.90 Unspecified osteoarthritis, unspecified site; E03.9 Hypothyroidism, unspecified; E87.6 Hypokalemia; K21.9 Gastro-esophageal reflux disease without esophagitis; K44.9 Diaphragmatic hernia without obstruction or gangrene; T45.515A Adverse effect of anticoagulants, initial encounter; Y92.89 Other specified places as the place of occurrence of the external cause; Z79.01 Long term (current) use of anticoagulants; Z82.3 Family history of stroke; Z82.49 Family history of ischemic heart disease and other diseases of the circulatory system; Z83.3 Family history of diabetes mellitus; Z87.891 Personal history of nicotine dependence; Z86.718 Personal history of other venous thrombosis and embolism; Z86.711 Personal history of pulmonary embolism; Z90.49 Acquired absence of other specified parts of digestive tract; Z88.6 Allergy status to analgesic agent; Z88.8 Allergy status to other drugs, medicaments and biological substances; Z88.0 Allergy status to penicillin; Z79.899 Other long term (current) drug therapy
CPT/HCPCS: 36415; 70450; 71010; 74176; 76942; 80048; 80053; 80202; 81001; 82310; 83880; 84132; 84484; 85025; 85610; 85730; 87205; 93005; 93970; 94640; 96361; 96365; 96367; 96375; J0610; J0696; J2001; J2405; J7060; Q0162

== ENCOUNTER 2016-11-10 13:30 | Inpatient (IN) | payer OTHER, MEDICAID ==
[~2016-11-10] VITALS: Ht 152.4 cm; Wt 65.1 kg
[~2016-11-10 13:30] MED LIST changes: -WARF3TAB20 PO
[2016-11-10] MEDS ORDERED: ONDANSETRON HCL 4 MG/2 ML VIAL IV ONE (15:00)
[2016-11-10 15:10] LABS: Basophils # (auto) 0 uL; Basophils % (auto) 0.2 % (0.0-2.0); CONDITION Y; DEFINITIVE SEE PRINTOUT; Eosinophils # (auto) 0 uL; Eosinophils % (auto) 0.1 % (0.0-7.0); Hematocrit 25.9 % (36.0-46.0); Hemoglobin 8.7 g/dL (12.2-16.2); Lymphocytes # (auto) 1.2 uL; Lymphocytes % (auto) 12.3 % (10.0-50.0); Mean Corpuscular Hemoglobin 31.3 pg (28.0-32.0); Mean Corpuscular Hgb Conc. 33.5 g/dL (32.0-36.0); Mean Corpuscular Volume 93.6 fL (80.0-100.0); Mean Platelet Volume 7.3 fL (7.4-10.4); Monocytes # (auto) 1.3 uL; Monocytes % (auto) 13.9 % (0.0-12.0); Neutrophils % (auto) 73.5 % (37.0-80.0); Platelet Count (auto) 535 10^3/uL (140-450); Red Cell Distribution Width 19.3 % (11.6-16.0); White Blood Cell 9.6 10^3/uL (4.4-10.8)
[2016-11-10] MEDS: MORPHINE SULF INJ 2 MG/ML SYRINGE 1ML IV PRN (15:12)
[2016-11-10 15:23] LABS: Albumin 2.5 g/dL (3.4-5.0); Bilirubin, Total 0.5 mg/dL (0.2-1.0); Potassium 3.5 mmol/L (3.5-5.1); Total Protein 7.9 g/dL (6.4-8.2)
[2016-11-10 15:28] LABS: Calcium 5.8 mg/dL (8.5-10.1)
[2016-11-10 15:29] LABS: Magnesium 0.6 mg/dL (1.6-2.6)
[2016-11-10 15:35] LABS: INR 3.27 (0.9-1.15); Partial Thromboplastin Time 50.4 sec (22.64-33.71); Prothrombin Time 36.1 sec (9.37-12.3)
[2016-11-10 15:52] LABS: Platelet Estimate Increased
[2016-11-10 15:54] LABS: Burr Cells FEW
[2016-11-10 15:55] LABS: Ovalocytes FEW
[2016-11-10 15:56] LABS: Anisocytosis Slight
[2016-11-10] MEDS: MAGNESIUM SULFATE 1GM/100ML 100 ML IV SCH ×3 (16:56→18:50)
[2016-11-10] MEDS ORDERED: CALCIUM GLUC 4.65meq/50ml D5AE 50 ML IV ONE (18:15)
[2016-11-10] MEDS ORDERED: MORPHINE SULF INJ 2 MG/ML SYRINGE 1ML IV ONE (18:45)
[2016-11-10] MEDS ORDERED: LEVOFLOXACIN 500MG 100 ML IV ONE (19:00)
[2016-11-10] MEDS ORDERED: ACETAMINOPHEN 325 MG TAB PO PRN (19:15)
[2016-11-10] MEDS ORDERED: ONDANSETRON HCL 4 MG/2 ML VIAL IV PRN (19:15)
[2016-11-10] MEDS ORDERED: METHOTREXATE 2.5 MG TAB PO SCH (19:15)
[2016-11-10] MEDS ORDERED: MORPHINE SULF INJ 2 MG/ML SYRINGE 1ML IV PRN (19:15)
[2016-11-10] MEDS: HYDROcodone-ACET 5/325MG TAB PO PRN (19:37)
[2016-11-10 19:38] VITALS: BP 130/55
[2016-11-10 21:00] VITALS: BP 126/74
[2016-11-10] MEDS: SODIUM CHLOR 0.9% PF (SALINE LOCK) 10ML VIAL IV SCH (21:55)
[2016-11-10] MEDS: CLINDAMYCIN 300MG IV 50 ML IV SCH (21:55)
[2016-11-10] MEDS: FAMOTIDINE 20 MG TAB PO SCH (21:55)
[2016-11-10] MEDS: CILOSTAZOL 100 MG TAB PO SCH (21:56)
[2016-11-10] MEDS: IPRATROPIUM BROM 0.5 MG/2.5ML INH SOL NEB SCH (21:56)
[2016-11-10] MEDS: ALBUTEROL SULF 2.5 MG/0.5ML(0.5%) NEB SOLN NEB SCH (21:56)
[2016-11-10 22:00] VITALS: BP 126/74
[2016-11-10] MEDS ORDERED: PATIENTS OWN MEDICATION IN SCH ×2 (22:00)
[2016-11-11] MEDS: ALBUTEROL SULF 2.5 MG/0.5ML(0.5%) NEB SOLN NEB SCH ×6 (02:12→22:19)
[2016-11-11] MEDS: IPRATROPIUM BROM 0.5 MG/2.5ML INH SOL NEB SCH ×6 (02:13→22:19)
[2016-11-11] MEDS: HYDROcodone-ACET 5/325MG TAB PO PRN ×4 (04:00→23:22)
[2016-11-11] MEDS ORDERED: ALBUTEROL SULF 2.5 MG/0.5ML(0.5%) NEB SOLN NEB SCH (06:00)
[2016-11-11] MEDS: CLINDAMYCIN 300MG IV 50 ML IV SCH ×3 (06:12→21:29)
[2016-11-11] MEDS: LEVOTHYROXINE SODIUM 25 MCG TAB PO SCH (06:13)
[2016-11-11] MEDS: FUROSEMIDE 20 MG TAB PO SCH ×2 (06:13→17:52)
[2016-11-11] MEDS: SODIUM CHLOR 0.9% PF (SALINE LOCK) 10ML VIAL IV SCH ×3 (06:13→21:29)
[2016-11-11 06:32] LABS: Partial Thromboplastin Time 67.9 sec (22.64-33.71); Prothrombin Time 46.4 sec (9.37-12.3)
[2016-11-11 06:44] LABS: INR 4.2 (0.9-1.15)
[2016-11-11 06:50] LABS: Albumin 1.9 g/dL (3.4-5.0); BUN/Creatinine Ratio 21.1; Bilirubin, Total 0.6 mg/dL (0.2-1.0); Magnesium 1.7 mg/dL (1.6-2.6); Potassium 3.1 mmol/L (3.5-5.1); Total Protein 6.5 g/dL (6.4-8.2)
[2016-11-11 07:34] LABS: Basophils # (auto) 0 uL; Basophils % (auto) 0.1 % (0.0-2.0); CONDITION Y; DEFINITIVE SEE PRINTOUT; Eosinophils # (auto) 0 uL; Eosinophils % (auto) 0.1 % (0.0-7.0); Hematocrit 23.8 % (36.0-46.0); Hemoglobin 7.8 g/dL (12.2-16.2); Lymphocytes # (auto) 0.8 uL; Lymphocytes % (auto) 8.1 % (10.0-50.0); Mean Corpuscular Hemoglobin 30.9 pg (28.0-32.0); Mean Corpuscular Hgb Conc. 32.8 g/dL (32.0-36.0); Mean Corpuscular Volume 94.2 fL (80.0-100.0); Mean Platelet Volume 6.7 fL (7.4-10.4); Monocytes # (auto) 1.3 uL; Monocytes % (auto) 13.2 % (0.0-12.0); Neutrophils # (auto) 7.8 uL; Neutrophils % (auto) 78.5 % (37.0-80.0); Platelet Count (auto) 490 10^3/uL (140-450); Red Cell Distribution Width 19.6 % (11.6-16.0)
[2016-11-11 08:09] LABS: Calcium 5.8 mg/dL (8.5-10.1)
[2016-11-11 09:00] VITALS: BP 118/57
[2016-11-11] MEDS: LEVOFLOXACIN 500MG 100 ML IV SCH (09:14)
[2016-11-11] MEDS: MULTIPLE VITAMIN TAB PO SCH (09:15)
[2016-11-11] MEDS: POTASSIUM CHL 20 Meq TABLET PO SCH (09:15)
[2016-11-11] MEDS: PANTOPRAZOLE 40 MG TAB PO SCH (09:15)
[2016-11-11] MEDS: FAMOTIDINE 20 MG TAB PO SCH ×2 (09:15→21:32)
[2016-11-11] MEDS ORDERED: PATIENTS OWN MEDICATION PO SCH ×4 (10:00)
[2016-11-11] MEDS ORDERED: VORICONAZOLE PO SCH (10:00)
[2016-11-11] MEDS ORDERED: METHOTREXATE 2.5 MG TAB PO SCH (10:00)
[2016-11-11] MEDS: LOSARTAN POTASSIUM 25 MG TAB PO SCH (10:00)
[2016-11-11] MEDS: HCTZ 25 MG TAB PO SCH (10:00)
[2016-11-11] MEDS: VERAPAMIL HCL 120 mg ER tab PO SCH (10:00)
[2016-11-11] MEDS ORDERED: POTASSIUM CHLORIDE 40 MEQ, LIDOCAINE 1% (LOCAL ANESTH.) 4 ML in SODIUM CHL 0.9% 250 ML IV ONE (10:15)
[2016-11-11] MEDS: CILOSTAZOL 100 MG TAB PO SCH ×2 (10:21→21:31)
[2016-11-11 13:00] VITALS: BP 105/66
[2016-11-11 17:00] VITALS: BP 121/60
[2016-11-11 20:00] VITALS: BP 103/54
[2016-11-11] MEDS: TEMAZEPAM 15 MG CAP PO PRN (21:31)
[2016-11-11 22:00] VITALS: BP 103/54
[2016-11-12] MEDS: ALBUTEROL SULF 2.5 MG/0.5ML(0.5%) NEB SOLN NEB SCH ×6 (02:31→22:02)
[2016-11-12] MEDS: IPRATROPIUM BROM 0.5 MG/2.5ML INH SOL NEB SCH ×6 (02:31→22:02)
[2016-11-12] MEDS: HYDROcodone-ACET 5/325MG TAB PO PRN ×4 (04:42→18:48)
[2016-11-12 05:25] VITALS: BP 137/73
[2016-11-12] MEDS: CLINDAMYCIN 300MG IV 50 ML IV SCH ×3 (05:45→21:58)
[2016-11-12] MEDS: SODIUM CHLOR 0.9% PF (SALINE LOCK) 10ML VIAL IV SCH ×3 (05:46→21:58)
[2016-11-12] MEDS: FUROSEMIDE 20 MG TAB PO SCH ×2 (05:46→17:37)
[2016-11-12 06:04] LABS: BUN/Creatinine Ratio 20.3; Bilirubin, Total 0.5 mg/dL (0.2-1.0); Calcium 6.2 mg/dL (8.5-10.1); Magnesium 1.4 mg/dL (1.6-2.6); Potassium 3.7 mmol/L (3.5-5.1); Total Protein 6.9 g/dL (6.4-8.2)
[2016-11-12] MEDS: LEVOTHYROXINE SODIUM 25 MCG TAB PO SCH (06:11)
[2016-11-12 06:35] LABS: INR 6.66 (0.9-1.15); Partial Thromboplastin Time 78.4 sec (22.64-33.71)
[2016-11-12 06:42] LABS: Basophils # (auto) 0 uL; CONDITION Y; DEFINITIVE SEE PRINTOUT; Eosinophils # (auto) 0 uL; Eosinophils % (auto) 0.1 % (0.0-7.0); Hematocrit 24.1 % (36.0-46.0); Hemoglobin 7.9 g/dL (12.2-16.2); Lymphocytes # (auto) 0.8 uL; Lymphocytes % (auto) 8.1 % (10.0-50.0); Mean Corpuscular Volume 94.1 fL (80.0-100.0); Mean Platelet Volume 7.1 fL (7.4-10.4); Monocytes # (auto) 0.8 uL; Monocytes % (auto) 8.5 % (0.0-12.0); Neutrophils # (auto) 7.8 uL; Neutrophils % (auto) 83.3 % (37.0-80.0); Platelet Count (auto) 507 10^3/uL (140-450); Red Cell Distribution Width 19.6 % (11.6-16.0); White Blood Cell 9.4 10^3/uL (4.4-10.8)
[2016-11-12] MEDS: CILOSTAZOL 100 MG TAB PO SCH ×2 (09:13→21:59)
[2016-11-12] MEDS: LEVOFLOXACIN 500MG 100 ML IV SCH (09:13)
[2016-11-12] MEDS: POTASSIUM CHL 20 Meq TABLET PO SCH (09:14)
[2016-11-12] MEDS: FAMOTIDINE 20 MG TAB PO SCH ×2 (09:14→21:58)
[2016-11-12] MEDS: PANTOPRAZOLE 40 MG TAB PO SCH (09:14)
[2016-11-12] MEDS: MULTIPLE VITAMIN TAB PO SCH (09:15)
[2016-11-12] MEDS: LOSARTAN POTASSIUM 25 MG TAB PO SCH (09:15)
[2016-11-12] MEDS: VERAPAMIL HCL 120 mg ER tab PO SCH (09:15)
[2016-11-12] MEDS: HCTZ 25 MG TAB PO SCH (09:16)
[2016-11-12 09:40] VITALS: BP 97/52
[2016-11-12] MEDS: VORICONAZOLE 50 MG TAB PO SCH (10:06)
[2016-11-12] MEDS: MAGNESIUM SULFATE 1GM/100ML 100 ML IV SCH ×2 (10:06→11:00)
[2016-11-12] MEDS: BUDESONIDE (INHALATION) 0.5 MG/2 ML NEB NEB SCH ×2 (10:46→22:05)
[2016-11-12 12:40] VITALS: BP 106/64
[2016-11-12 17:19] VITALS: BP 121/60
[2016-11-12] MEDS ORDERED: MAGNESIUM SULFATE 1GM/100ML 100 ML IV SCH (18:00)
[2016-11-12 20:00] VITALS: BP 125/59
[2016-11-12] MEDS: DOCUSATE SOD 100 MG CAP PO PRN (22:14)
[2016-11-12] MEDS: TEMAZEPAM 15 MG CAP PO PRN (22:15)
[2016-11-12 23:03] VITALS: BP 125/59
[2016-11-13] VITALS (7 sets, daily range): BP systolic 117–133; BP diastolic 52–67
[2016-11-13] MEDS: ALBUTEROL SULF 2.5 MG/0.5ML(0.5%) NEB SOLN NEB SCH ×6 (02:35→22:21)
[2016-11-13] MEDS: IPRATROPIUM BROM 0.5 MG/2.5ML INH SOL NEB SCH ×6 (02:36→22:21)
[2016-11-13] MEDS: CLINDAMYCIN 300MG IV 50 ML IV SCH (06:08)
[2016-11-13] MEDS: SODIUM CHLOR 0.9% PF (SALINE LOCK) 10ML VIAL IV SCH ×3 (06:09→22:00)
[2016-11-13] MEDS: FUROSEMIDE 20 MG TAB PO SCH ×2 (06:09→18:39)
[2016-11-13] MEDS: LEVOTHYROXINE SODIUM 25 MCG TAB PO SCH (06:11)
[2016-11-13] MEDS: HYDROcodone-ACET 5/325MG TAB PO PRN ×4 (06:40→22:13)
[2016-11-13 08:33] LABS: Basophils # (auto) 0 uL; CONDITION Y; DEFINITIVE SEE PRINTOUT; Eosinophils # (auto) 0 uL; Eosinophils % (auto) 0.2 % (0.0-7.0); Hematocrit 23.2 % (36.0-46.0); Hemoglobin 7.7 g/dL (12.2-16.2); Lymphocytes # (auto) 0.9 uL; Lymphocytes % (auto) 9.2 % (10.0-50.0); Mean Corpuscular Hemoglobin 31.1 pg (28.0-32.0); Mean Corpuscular Hgb Conc. 33.1 g/dL (32.0-36.0); Mean Corpuscular Volume 93.8 fL (80.0-100.0); Mean Platelet Volume 6.9 fL (7.4-10.4); Monocytes # (auto) 0.7 uL; Neutrophils % (auto) 83.6 % (37.0-80.0); Platelet Count (auto) 571 10^3/uL (140-450); SUSPECT SEE PRINTOUT; White Blood Cell 9.6 10^3/uL (4.4-10.8)
[2016-11-13 08:47] LABS: Red Cell Distribution Width 20.1 % (11.6-16.0)
[2016-11-13 08:52] LABS: Prothrombin Time 83.7 sec (9.37-12.3)
[2016-11-13 09:01] LABS: Albumin 1.8 g/dL (3.4-5.0); Bilirubin, Total 0.3 mg/dL (0.2-1.0); Calcium 7.2 mg/dL (8.5-10.1); Magnesium 2.1 mg/dL (1.6-2.6); Potassium 4.5 mmol/L (3.5-5.1); Total Protein 6.7 g/dL (6.4-8.2)
[2016-11-13 09:02] LABS: INR 7.52 (0.9-1.15); Partial Thromboplastin Time 83.7 sec (22.64-33.71)
[2016-11-13] MEDS ORDERED: cefTRIAXone 1GM/50ML D5W 50 ML IV ONE (09:30)
[2016-11-13] MEDS: CILOSTAZOL 100 MG TAB PO SCH ×2 (10:19→21:42)
[2016-11-13] MEDS: HCTZ 25 MG TAB PO SCH (10:20)
[2016-11-13] MEDS: VERAPAMIL HCL 120 mg ER tab PO SCH (10:21)
[2016-11-13] MEDS: PANTOPRAZOLE 40 MG TAB PO SCH (10:21)
[2016-11-13] MEDS: LOSARTAN POTASSIUM 25 MG TAB PO SCH (10:22)
[2016-11-13] MEDS: FAMOTIDINE 20 MG TAB PO SCH ×2 (10:23→21:42)
[2016-11-13] MEDS: POTASSIUM CHL 20 Meq TABLET PO SCH (10:23)
[2016-11-13] MEDS: MULTIPLE VITAMIN TAB PO SCH (10:23)
[2016-11-13] MEDS: VORICONAZOLE 50 MG TAB PO SCH (10:58)
[2016-11-13 11:12] LABS: Anisocytosis Slight; Platelet Estimate Increased
[2016-11-13 11:13] LABS: Hypochromia Slight
[2016-11-13] MEDS: BUDESONIDE (INHALATION) 0.5 MG/2 ML NEB NEB SCH ×2 (11:18→22:21)
[2016-11-13] MEDS: TEMAZEPAM 15 MG CAP PO PRN (23:45)
[2016-11-13] MEDS: DOCUSATE SOD 100 MG CAP PO PRN (23:45)
[2016-11-14] VITALS (10 sets, daily range): BP systolic 113–152; BP diastolic 52–73
[2016-11-14] MEDS: IPRATROPIUM BROM 0.5 MG/2.5ML INH SOL NEB SCH ×6 (02:43→22:06)
[2016-11-14] MEDS: ALBUTEROL SULF 2.5 MG/0.5ML(0.5%) NEB SOLN NEB SCH ×6 (02:43→22:06)
[2016-11-14] MEDS: HYDROcodone-ACET 5/325MG TAB PO PRN ×2 (04:49→18:34)
[2016-11-14] MEDS: SODIUM CHLOR 0.9% PF (SALINE LOCK) 10ML VIAL IV SCH ×3 (05:31→21:57)
[2016-11-14] MEDS: FUROSEMIDE 20 MG TAB PO SCH ×2 (05:31→18:00)
[2016-11-14] MEDS: LEVOTHYROXINE SODIUM 25 MCG TAB PO SCH (06:09)
[2016-11-14 07:55] LABS: Basophils # (auto) 0 uL; CONDITION Y; DEFINITIVE SEE PRINTOUT; Eosinophils # (auto) 0.1 uL; Eosinophils % (auto) 0.7 % (0.0-7.0); Platelet Count (auto) 594 10^3/uL (140-450)
[2016-11-14 08:08] LABS: Basophils % (auto) 0.3 % (0.0-2.0); Hematocrit 22.9 % (36.0-46.0); Hemoglobin 7.4 g/dL (12.2-16.2); Lymphocytes # (auto) 0.6 uL; Lymphocytes % (auto) 6.1 % (10.0-50.0); Mean Corpuscular Hemoglobin 30.6 pg (28.0-32.0); Mean Corpuscular Hgb Conc. 32.1 g/dL (32.0-36.0); Mean Corpuscular Volume 95.1 fL (80.0-100.0); Mean Platelet Volume 6.8 fL (7.4-10.4); Monocytes # (auto) 0.7 uL; Monocytes % (auto) 7.4 % (0.0-12.0); Neutrophils # (auto) 8.5 uL; Neutrophils % (auto) 85.5 % (37.0-80.0); SUSPECT SEE PRINTOUT; White Blood Cell 9.9 10^3/uL (4.4-10.8)
[2016-11-14 08:10] LABS: Prothrombin Time 48.8 sec (9.37-12.3)
[2016-11-14 08:13] LABS: INR 4.41 (0.9-1.15)
[2016-11-14 08:15] LABS: Red Cell Distribution Width 20.1 % (11.6-16.0)
[2016-11-14 08:28] LABS: Albumin 1.7 g/dL (3.4-5.0); BUN/Creatinine Ratio 22.4; Bilirubin, Total 0.4 mg/dL (0.2-1.0); Calcium 8.7 mg/dL (8.5-10.1); Potassium 4.8 mmol/L (3.5-5.1); Total Protein 6.6 g/dL (6.4-8.2)
[2016-11-14 08:50] LABS: Anisocytosis Slight; Hypochromia Moderate; Large Platelets FEW; Platelet Clumps FEW; Platelet Estimate Increased
[2016-11-14] MEDS ORDERED: cefTRIAXone 1GM/50ML D5W 50 ML IV SCH (09:00)
[2016-11-14] MEDS ORDERED: PRO-STAT 64 30ML PO SCH (10:00)
[2016-11-14] MEDS: VORICONAZOLE 50 MG TAB PO SCH (10:00)
[2016-11-14] MEDS: BUDESONIDE (INHALATION) 0.5 MG/2 ML NEB NEB SCH ×2 (10:23→22:06)
[2016-11-14] MEDS: CILOSTAZOL 100 MG TAB PO SCH ×2 (11:18→21:58)
[2016-11-14] MEDS: PANTOPRAZOLE 40 MG TAB PO SCH (11:18)
[2016-11-14] MEDS: MULTIPLE VITAMINS W/ MINERALS TAB PO SCH ×2 (11:18→21:58)
[2016-11-14] MEDS: FAMOTIDINE 20 MG TAB PO SCH ×2 (11:18→21:58)
[2016-11-14] MEDS: ASCORBIC ACID 500 MG TAB PO SCH ×2 (11:18→21:58)
[2016-11-14] MEDS: POTASSIUM CHL 20 Meq TABLET PO SCH (11:18)
[2016-11-14] MEDS: FERROUS SULFATE 325 MG TAB PO SCH ×2 (13:13→18:33)
[2016-11-14] MEDS: HCTZ 25 MG TAB PO SCH (13:14)
[2016-11-14] MEDS: LOSARTAN POTASSIUM 25 MG TAB PO SCH (13:14)
[2016-11-14] MEDS: VERAPAMIL HCL 120 mg ER tab PO SCH (13:15)
[2016-11-14] MEDS: MORPHINE SULF INJ 2 MG/ML SYRINGE 1ML IV PRN ×2 (16:18→21:57)
[2016-11-15 01:07] LABS: Erythropoietin 90.4 mIU/mL (2.6-18.5)
[2016-11-15] MEDS: MORPHINE SULF INJ 2 MG/ML SYRINGE 1ML IV PRN ×3 (02:53→10:57)
[2016-11-15 04:52] VITALS: BP 128/60
[2016-11-15] MEDS: SODIUM CHLOR 0.9% PF (SALINE LOCK) 10ML VIAL IV SCH (05:50)
[2016-11-15] MEDS: FUROSEMIDE 20 MG TAB PO SCH (05:51)
[2016-11-15] MEDS: LEVOTHYROXINE SODIUM 25 MCG TAB PO SCH (05:52)
[2016-11-15] MEDS: IPRATROPIUM BROM 0.5 MG/2.5ML INH SOL NEB SCH ×3 (05:59→15:06)
[2016-11-15] MEDS: ALBUTEROL SULF 2.5 MG/0.5ML(0.5%) NEB SOLN NEB SCH ×3 (05:59→15:06)
[2016-11-15 08:00] VITALS: BP 111/67
[2016-11-15 09:00] VITALS: BP 111/67
[2016-11-15] MEDS: ASCORBIC ACID 500 MG TAB PO SCH (09:15)
[2016-11-15] MEDS: LOSARTAN POTASSIUM 25 MG TAB PO SCH (09:22)
[2016-11-15] MEDS: FERROUS SULFATE 325 MG TAB PO SCH ×2 (09:23→12:02)
[2016-11-15] MEDS: POTASSIUM CHL 20 Meq TABLET PO SCH (09:23)
[2016-11-15] MEDS: CILOSTAZOL 100 MG TAB PO SCH (09:25)
[2016-11-15] MEDS: VERAPAMIL HCL 120 mg ER tab PO SCH (09:26)
[2016-11-15] MEDS: PANTOPRAZOLE 40 MG TAB PO SCH (09:28)
[2016-11-15] MEDS: MULTIPLE VITAMINS W/ MINERALS TAB PO SCH (09:28)
[2016-11-15] MEDS: HCTZ 25 MG TAB PO SCH (09:28)
[2016-11-15] MEDS: FAMOTIDINE 20 MG TAB PO SCH (09:29)
[2016-11-15] MEDS: VORICONAZOLE 50 MG TAB PO SCH (09:30)
[2016-11-15] MEDS: BUDESONIDE (INHALATION) 0.5 MG/2 ML NEB NEB SCH (10:11)
[2016-11-15 11:16] LABS: Basophils # (auto) 0 uL; CONDITION Y; DEFINITIVE SEE PRINTOUT; Eosinophils # (auto) 0.1 uL; Eosinophils % (auto) 1.5 % (0.0-7.0); Hematocrit 27.8 % (36.0-46.0); Hemoglobin 9.3 g/dL (12.2-16.2); INR 1.86 (0.9-1.15); Lymphocytes # (auto) 1.4 uL; Lymphocytes % (auto) 17.1 % (10.0-50.0); Mean Corpuscular Hemoglobin 30.8 pg (28.0-32.0); Mean Corpuscular Hgb Conc. 33.3 g/dL (32.0-36.0); Mean Corpuscular Volume 92.6 fL (80.0-100.0); Mean Platelet Volume 6.4 fL (7.4-10.4); Monocytes # (auto) 0.6 uL; Monocytes % (auto) 7.7 % (0.0-12.0); Neutrophils % (auto) 73.7 % (37.0-80.0); Partial Thromboplastin Time 59.9 sec (22.64-33.71); Platelet Count (auto) 576 10^3/uL (140-450); Prothrombin Time 20.4 sec (9.37-12.3); Red Cell Distribution Width 19.9 % (11.6-16.0); White Blood Cell 8.1 10^3/uL (4.4-10.8)
[2016-11-15 11:27] LABS: BUN/Creatinine Ratio 20.4; Bilirubin, Total 0.4 mg/dL (0.2-1.0); Calcium 9.9 mg/dL (8.5-10.1); Potassium 4.3 mmol/L (3.5-5.1); Total Protein 7.4 g/dL (6.4-8.2)
[2016-11-15 11:31] LABS: Albumin 1.8 g/dL (3.4-5.0)
[2016-11-15 11:38] LABS: Platelet Estimate Increased
[2016-11-15 11:39] LABS: Anisocytosis Slight; Polychromasia Slight
[2016-11-15 11:40] LABS: Burr Cells FEW; Ovalocytes FEW
[2016-11-15 13:00] VITALS: BP 105/60
[2016-11-15 14:22] VITALS: BP 105/60
[2016-11-18] MEDS ORDERED: WARFARIN SODIUM 1 MG TAB PO SCH (12:00)
== END 2016-11-15 17:30 | disposition home or self-care (01) | DRG 300 ==
LOC: ER 13:30 → OVERFLOW 13:31 → CENTRAL 20:44
PROVIDERS: ADMIT Internal Medicine; ATTEND Internal Medicine
PROC: 30233N1 Transfusion of Nonautologous Red Blood Cells into Peripheral Vein, Percutaneous Approach (ICD-10-PCS; principal; 2016-11-14)
DX: I82.412 Acute embolism and thrombosis of left femoral vein (principal); D68.69 Other thrombophilia; E44.0 Moderate protein-calorie malnutrition; L03.115 Cellulitis of right lower limb; I82.432 Acute embolism and thrombosis of left popliteal vein; I48.0 Paroxysmal atrial fibrillation; L03.116 Cellulitis of left lower limb; I10 Essential (primary) hypertension; E83.42 Hypomagnesemia; E83.51 Hypocalcemia; I82.511 Chronic embolism and thrombosis of right femoral vein; I82.531 Chronic embolism and thrombosis of right popliteal vein; E03.9 Hypothyroidism, unspecified; I73.9 Peripheral vascular disease, unspecified; I89.0 Lymphedema, not elsewhere classified; I25.119 Atherosclerotic heart disease of native coronary artery with unspecified angina pectoris; J44.9 Chronic obstructive pulmonary disease, unspecified; K21.9 Gastro-esophageal reflux disease without esophagitis; M06.9 Rheumatoid arthritis, unspecified; M19.90 Unspecified osteoarthritis, unspecified site; D50.9 Iron deficiency anemia, unspecified; T45.515A Adverse effect of anticoagulants, initial encounter; Y92.89 Other specified places as the place of occurrence of the external cause; Z79.01 Long term (current) use of anticoagulants; Z82.3 Family history of stroke; Z82.49 Family history of ischemic heart disease and other diseases of the circulatory system; Z83.3 Family history of diabetes mellitus; Z86.711 Personal history of pulmonary embolism; Z88.0 Allergy status to penicillin; Z88.8 Allergy status to other drugs, medicaments and biological substances; Z90.49 Acquired absence of other specified parts of digestive tract; Z98.891 History of uterine scar from previous surgery; Z80.9 Family history of malignant neoplasm, unspecified; Z87.891 Personal history of nicotine dependence; Z68.28 Body mass index [BMI] 28.0-28.9, adult
CPT/HCPCS: 36415; 71010; 73562; 80053; 82607; 82668; 82728; 83010; 83540; 83550; 83615; 83735; 85025; 85045; 85610; 85730; 86703; 86850; 86880; 86900; 86901; 86920; 87040; 87081; 93970; 94640; 94660; 94761; 96365; 96366; 96375; 96376; 97110; 97116; 97163; 97530; J0610; J0696; J1956; J2001; J2405; J3490

== ENCOUNTER 2016-11-20 20:24 | Emergency (ER) | payer OTHER, MEDICAID ==
[~2016-11-20] VITALS: Ht 149.9 cm; Wt 63.0 kg
[~2016-11-20 20:24] MED LIST changes: -HYDR12.56 PO
[2016-11-20 21:24] LABS: Basophils # (auto) 0 uL; Basophils % (auto) 0.4 % (0.0-2.0); CONDITION Y; DEFINITIVE SEE PRINTOUT; Eosinophils # (auto) 0.1 uL; Eosinophils % (auto) 0.8 % (0.0-7.0); Hematocrit 25.5 % (36.0-46.0); Hemoglobin 8.3 g/dL (12.2-16.2); Lymphocytes # (auto) 1.4 uL; Mean Corpuscular Hemoglobin 30.3 pg (28.0-32.0); Mean Corpuscular Hgb Conc. 32.7 g/dL (32.0-36.0); Mean Corpuscular Volume 92.5 fL (80.0-100.0); Mean Platelet Volume 6.8 fL (7.4-10.4); Monocytes # (auto) 0.5 uL; Monocytes % (auto) 4.3 % (0.0-12.0); Neutrophils % (auto) 81.5 % (37.0-80.0); Platelet Count (auto) 684 10^3/uL (140-450); Red Cell Distribution Width 18.5 % (11.6-16.0); White Blood Cell 11.1 10^3/uL (4.4-10.8)
[2016-11-20 21:41] LABS: Albumin 2.1 g/dL (3.4-5.0); BUN/Creatinine Ratio 18.4; Calcium 9.4 mg/dL (8.5-10.1); Potassium 3.8 mmol/L (3.5-5.1)
[2016-11-20 22:01] LABS: Bilirubin, Total 0.5 mg/dL (0.2-1.0); Total Protein 7.6 g/dL (6.4-8.2)
[2016-11-21] MEDS ORDERED: ONDANSETRON HCL 4 MG/2 ML VIAL IV ONE (00:45)
[2016-11-21] MEDS ORDERED: HYDROmorphone HCL 2 MG/ML VL IV ONE (00:45)
[2016-11-21 02:27] VITALS: BP 111/55
== END 2016-11-21 02:28 | disposition home or self-care (01) ==
LOC: EDBD 20:24 → ER 20:27
DX: I82.412 Acute embolism and thrombosis of left femoral vein (principal); J44.9 Chronic obstructive pulmonary disease, unspecified; K21.9 Gastro-esophageal reflux disease without esophagitis; I10 Essential (primary) hypertension; E07.89 Other specified disorders of thyroid; M19.90 Unspecified osteoarthritis, unspecified site; I48.91 Unspecified atrial fibrillation; Z90.89 Acquired absence of other organs; Z79.891 Long term (current) use of opiate analgesic; Z88.0 Allergy status to penicillin; Z88.8 Allergy status to other drugs, medicaments and biological substances
CPT/HCPCS: 36415; 71010; 80053; 85025; 85379; 93005; 93971; 96374; 96375; 99285; J1170; J2405

== ENCOUNTER 2017-01-10 14:41 | Emergency (ER) | payer OTHER, MEDICAID ==
[~2017-01-10] VITALS: Ht 149.9 cm; Wt 60.3 kg
[2017-01-10] MEDS ORDERED: ONDANSETRON HCL 4 MG/2 ML VIAL IV ONE (17:30)
[2017-01-10] MEDS ORDERED: PANTOPRAZOLE 40 MG/10 ML VIAL IV ONE (17:30)
[2017-01-10] MEDS ORDERED: MORPHINE SULF INJ 2 MG/ML SYRINGE 1ML IV ONE (17:30)
[2017-01-10 18:24] LABS: Urine Bilirubin Negative (Negative); Urine Blood Negative /uL (Negative); Urine Color Yellow (Yellow); Urine Glucose Normal (Normal); Urine Ketone Negative (Negative); Urine Mucus FEW (None Seen); Urine Nitrite Negative (Negative); Urine RBC <1 /hpf (0 - 4); Urine Squamous Epithelial Cell FEW /hpf (<5); Urine Urobilinogen Normal (Negative)
[2017-01-10 18:59] LABS: Basophils # (auto) 0.1 uL; Eosinophils # (auto) 0.1 uL; Lymphocytes # (auto) 1.2 uL; Mean Corpuscular Volume 100.7 fL (80.0-100.0); Monocytes # (auto) 0.4 uL; White Blood Cell 5.2 10^3/uL (4.4-10.8)
[2017-01-10 19:01] LABS: Basophils % (auto) 1.1 % (0.0-2.0); Eosinophils % (auto) 2.5 % (0.0-7.0); Hematocrit 22.9 % (36.0-46.0); Hemoglobin 7.5 g/dL (12.2-16.2); Lymphocytes % (auto) 23.2 % (10.0-50.0); Mean Corpuscular Hemoglobin 33.2 pg (28.0-32.0); Mean Platelet Volume 6.3 fL (6.9-10.8); Monocytes % (auto) 7.1 % (0.0-12.0); Neutrophils # (auto) 3.5 uL; Neutrophils % (auto) 66.1 % (37.0-80.0); Nucleated Red Blood Cells % 0.2 %; Platelet Count (auto) 397 10^3/uL (140-450)
[2017-01-10 19:03] LABS: Albumin 2.8 g/dL (3.4-5.0); BUN/Creatinine Ratio 26.4; Bilirubin, Total 0.3 mg/dL (0.2-1.0); Potassium 3.1 mmol/L (3.5-5.1); Total Protein 6.9 g/dL (6.4-8.2)
[2017-01-10 19:07] LABS: Red Cell Distribution Width 22.7 % (11.8-14.3)
[2017-01-10] MEDS ORDERED: POTASSIUM CHL 10% (20 MEQ/15ML) 15ml ORAL SOLN PO ONE (20:00)
[2017-01-10 20:23] LABS: Anisocytosis Slight; Macrocytosis Slight; Platelet Estimate Adequate
[2017-01-10 20:39] VITALS: BP 117/59
== END 2017-01-10 22:00 | disposition home or self-care (01) ==
LOC: ER 14:41
DX: K29.00 Acute gastritis without bleeding (principal); J44.9 Chronic obstructive pulmonary disease, unspecified; I48.91 Unspecified atrial fibrillation; M19.90 Unspecified osteoarthritis, unspecified site; I11.0 Hypertensive heart disease with heart failure; I50.9 Heart failure, unspecified; E07.89 Other specified disorders of thyroid; Z90.89 Acquired absence of other organs; Z79.899 Other long term (current) drug therapy; Z88.1 Allergy status to other antibiotic agents; Z88.8 Allergy status to other drugs, medicaments and biological substances; Z90.49 Acquired absence of other specified parts of digestive tract; Z87.891 Personal history of nicotine dependence
CPT/HCPCS: 36415; 71020; 74176; 80053; 81001; 81002; 83690; 84484; 85025; 93005; 96374; 96375; 99285; C9113; J2405

== ENCOUNTER 2017-09-06 14:43 | Emergency (ER) | payer OTHER, MEDICAID ==
[~2017-09-06] VITALS: Ht 162.6 cm; Wt 63.5 kg
[2017-09-06] MEDS ORDERED: HYDROcodone-ACET 5/325MG TAB PO ONE (15:00)
[2017-09-06 18:34] VITALS: BP 151/60
== END 2017-09-06 18:37 | disposition home or self-care (01) ==
LOC: EDBD 14:43 → ER 14:43
DX: M79.1 Myalgia (principal); M79.601 Pain in right arm; I48.91 Unspecified atrial fibrillation; M19.90 Unspecified osteoarthritis, unspecified site; J45.909 Unspecified asthma, uncomplicated; I50.9 Heart failure, unspecified; J44.9 Chronic obstructive pulmonary disease, unspecified; K21.9 Gastro-esophageal reflux disease without esophagitis; I11.0 Hypertensive heart disease with heart failure; Z90.49 Acquired absence of other specified parts of digestive tract; Z88.8 Allergy status to other drugs, medicaments and biological substances; Z88.0 Allergy status to penicillin

== ENCOUNTER 2017-11-05 13:06 | Inpatient (IN) | payer OTHER, MEDICAID ==
[~2017-11-05] VITALS: Ht 147.3 cm; Wt 61.1 kg
[2017-11-05] MEDS ORDERED: MORPHINE SULF INJ 2 MG/ML SYRINGE 1ML IV ONE (14:15)
[2017-11-05 14:24] LABS: Basophils # (auto) 0 uL; Basophils % (auto) 0.6 % (0.0-2.0); Eosinophils # (auto) 0 uL; Eosinophils % (auto) 0.5 % (0.0-7.0); Hematocrit 21.5 % (36.0-46.0); Hemoglobin 7.1 g/dL (12.2-16.2); Lymphocytes # (auto) 0.7 uL; Lymphocytes % (auto) 15.8 % (10.0-50.0); Mean Corpuscular Hemoglobin 35.9 pg (28.0-32.0); Mean Corpuscular Hgb Conc. 32.9 g/dL (32.0-36.0); Mean Corpuscular Volume 109.2 fL (80.0-100.0); Monocytes # (auto) 0.3 uL; Neutrophils # (auto) 3.4 uL; Neutrophils % (auto) 76.1 % (37.0-80.0); Nucleated Red Blood Cells % 0.3 %; Platelet Count (auto) 305 10^3/uL (140-450); Red Blood Cells 1.97 10^6/uL (4.0-5.20); White Blood Cell 4.5 10^3/uL (4.4-10.8)
[2017-11-05 14:25] LABS: Red Cell Distribution Width 21.6 % (11.8-14.3)
[2017-11-05 14:30] LABS: Alanine Aminotransferase 19 U/L (13-56); Albumin 2.9 g/dL (3.4-5.0); Anion Gap 10 (5-15); Aspartate Aminotransferase 22 U/L (15-37); BUN/Creatinine Ratio 15.6; Blood Urea Nitrogen 14 mg/dL (7-18); Calcium 6.4 mg/dL (8.5-10.1); Carbon Dioxide 23 mmol/L (21-32); Chloride 110 mmol/L (98-107); GFR African American 79 mL/min; GFR Non-African American 65 mL/min; Glucose 135 mg/dL (74-106); Potassium 3.8 mmol/L (3.5-5.1); Sodium 143 mmol/L (136-145)
[2017-11-05 14:35] LABS: Alkaline Phosphatase 132 U/L (45-117); Bilirubin, Total 0.3 mg/dL (0.2-1.0); Total Protein 6.8 g/dL (6.4-8.2)
[2017-11-05 15:12] LABS: Magnesium 0.6 mg/dL (1.6-2.6)
[2017-11-05] MEDS ORDERED: PANTOPRAZOLE 40 MG/10 ML VIAL IV ONE (15:15)
[2017-11-05] MEDS ORDERED: ONDANSETRON HCL 4 MG/2 ML VIAL IV ONE (15:15)
[2017-11-05 16:04] LABS: INR 1.56 (0.9-1.15); Partial Thromboplastin Time 36.6 sec (23.78-33.04); Prothrombin Time 16.3 sec (9.27-12.13)
[2017-11-05] MEDS: MAGNESIUM SULFATE 1GM/100ML 100 ML IV SCH ×3 (16:10→21:11)
[2017-11-05] MEDS ORDERED: NITROGLYCERIN 0.4 MG SL TAB SL PRN (16:30)
[2017-11-05 17:33] LABS: Amylase 61 U/L (25-115); Lipase 98 U/L (73-393)
[2017-11-05] MEDS: ONDANSETRON HCL 4 MG/2 ML VIAL IV SCH ×2 (18:00→22:31)
[2017-11-05] MEDS ORDERED: MAGNESIUM SULFATE 1GM/100ML 100 ML IV SCH (18:00)
[2017-11-05] MEDS: ACETAMINOPHEN 325 MG TAB PO SCH ×2 (18:00→22:32)
[2017-11-05] MEDS: IPRATROPIUM BROM 0.5 MG/2.5ML INH SOL NEB SCH (19:00)
[2017-11-05] MEDS: SODIUM CHLORIDE 0.9% 1,000 ML IV SCH (19:06)
[2017-11-05] MEDS: ALBUTEROL SULF 2.5 MG/0.5ML(0.5%) NEB SOLN NEB PRN (19:19)
[2017-11-05] MEDS ORDERED: IOHEXOL 300 MG/ML 100ML BOTTLE IJ ONE (19:28)
[2017-11-05 20:06] VITALS: BP 109/50
[2017-11-05 20:09] LABS: Urine Bacteria NONE SEEN /hpf (None Seen); Urine Blood Negative /uL (Negative); Urine Hyaline Cast FEW /lpf (0 - 2); Urine Mucus FEW (None Seen); Urine Specific Gravity 1.011 (1.001-1.035); Urine WBC 1 /hpf (0 - 5)
[2017-11-05 20:42] VITALS: BP 130/56
[2017-11-05] MEDS: MORPHINE SULF INJ 2 MG/ML SYRINGE 1ML IV PRN (21:10)
[2017-11-05 21:35] VITALS: BP 129/63
[2017-11-05 21:50] VITALS: BP 130/56
[2017-11-05 22:30] VITALS: BP 124/56
[2017-11-06] VITALS: BP 124/54
[2017-11-06] MEDS ORDERED: MAGNESIUM SULFATE 1GM/100ML 200 ML IV ONE (00:06)
[2017-11-06] MEDS: MAGNESIUM SULFATE 1GM/100ML 100 ML IV SCH (00:07)
[2017-11-06] MEDS: IPRATROPIUM BROM 0.5 MG/2.5ML INH SOL NEB SCH ×5 (00:40→19:15)
[2017-11-06] MEDS: ONDANSETRON HCL 4 MG/2 ML VIAL IV SCH ×3 (04:54→18:00)
[2017-11-06] MEDS: ACETAMINOPHEN 325 MG TAB PO SCH ×4 (04:55→18:17)
[2017-11-06] MEDS: SODIUM CHLORIDE 0.9% 1,000 ML IV SCH ×2 (06:14→18:11)
[2017-11-06] MEDS: MORPHINE SULF INJ 2 MG/ML SYRINGE 1ML IV PRN (06:15)
[2017-11-06 06:49] LABS: Basophils # (auto) 0 uL; Basophils % (auto) 0.5 % (0.0-2.0); Eosinophils # (auto) 0 uL; Hemoglobin 9.5 g/dL (12.2-16.2); Lymphocytes # (auto) 0.9 uL; Mean Corpuscular Hemoglobin 33.1 pg (28.0-32.0); Mean Corpuscular Hgb Conc. 32.8 g/dL (32.0-36.0); Mean Corpuscular Volume 100.7 fL (80.0-100.0); Monocytes # (auto) 0.3 uL; Monocytes % (auto) 6.4 % (0.0-12.0); Neutrophils # (auto) 3.5 uL; Neutrophils % (auto) 74.1 % (37.0-80.0); Nucleated Red Blood Cells % 0.2 %; Platelet Count (auto) 322 10^3/uL (140-450); Red Blood Cells 2.88 10^6/uL (4.0-5.20); White Blood Cell 4.8 10^3/uL (4.4-10.8)
[2017-11-06 07:11] LABS: Red Cell Distribution Width 32.3 % (11.8-14.3)
[2017-11-06 07:14] LABS: Albumin 3.1 g/dL (3.4-5.0); BUN/Creatinine Ratio 11.6; Bilirubin, Total 0.5 mg/dL (0.2-1.0); Calcium 7.3 mg/dL (8.5-10.1); Potassium 4.6 mmol/L (3.5-5.1); Total Protein 7.6 g/dL (6.4-8.2)
[2017-11-06 08:00] VITALS: BP 122/71
[2017-11-06] MEDS ORDERED: PANTOPRAZOLE 40 MG/10 ML VIAL IV SCH (10:00)
[2017-11-06] MEDS ORDERED: LEVOTHYROXINE SODIUM 25 MCG TAB PO SCH (10:00)
[2017-11-06] MEDS: VORICONAZOLE 50 MG TAB PO SCH (10:22)
[2017-11-06 12:00] VITALS: BP 133/88
[2017-11-06] MEDS: ALBUTEROL SULF 2.5 MG/0.5ML(0.5%) NEB SOLN NEB PRN (18:23)
[2017-11-06 20:00] VITALS: BP 125/59
[2017-11-07] VITALS (8 sets, daily range): BP systolic 111–141; BP diastolic 54–70
[2017-11-07] MEDS: ACETAMINOPHEN 325 MG TAB PO SCH ×3 (05:48→12:00)
[2017-11-07] MEDS: ONDANSETRON HCL 4 MG/2 ML VIAL IV SCH ×3 (05:48→12:00)
[2017-11-07 06:44] LABS: Basophils # (auto) 0 uL; Basophils % (auto) 0.7 % (0.0-2.0); Eosinophils # (auto) 0.1 uL; Eosinophils % (auto) 1.7 % (0.0-7.0); Hematocrit 27.1 % (36.0-46.0); Hemoglobin 9.1 g/dL (12.2-16.2); Lymphocytes # (auto) 0.6 uL; Lymphocytes % (auto) 17.6 % (10.0-50.0); Mean Corpuscular Hemoglobin 33.8 pg (28.0-32.0); Mean Corpuscular Hgb Conc. 33.4 g/dL (32.0-36.0); Monocytes # (auto) 0.3 uL; Monocytes % (auto) 9.7 % (0.0-12.0); Neutrophils # (auto) 2.2 uL; Neutrophils % (auto) 70.3 % (37.0-80.0); Nucleated Red Blood Cells % 0.5 %; Platelet Count (auto) 317 10^3/uL (140-450); Red Blood Cells 2.68 10^6/uL (4.0-5.20); White Blood Cell 3.2 10^3/uL (4.4-10.8)
[2017-11-07 06:58] LABS: INR 1.43 (0.9-1.15)
[2017-11-07 07:06] LABS: Albumin 2.7 g/dL (3.4-5.0); BUN/Creatinine Ratio 9.3; Bilirubin, Total 0.5 mg/dL (0.2-1.0); Calcium 8.3 mg/dL (8.5-10.1); Magnesium 2.4 mg/dL (1.6-2.6); Potassium 4.9 mmol/L (3.5-5.1); Total Protein 6.8 g/dL (6.4-8.2)
[2017-11-07] MEDS: IPRATROPIUM BROM 0.5 MG/2.5ML INH SOL NEB SCH ×2 (07:27→12:01)
[2017-11-07] MEDS ORDERED: LIDOCAINE VISCOUS 2% 15ML UD ONE (08:17)
[2017-11-07] MEDS ORDERED: SODIUM CHLORIDE LOCK 10 ML ONE (08:17)
[2017-11-07] MEDS ORDERED: diphenhdrAMINE HCL 50 MG/1 ML VL ONE (08:18)
[2017-11-07] MEDS: SODIUM CHLORIDE 0.9% 1,000 ML IV SCH (08:30)
[2017-11-07] MEDS: fentaNYL CITRATE 100 MCG/2 ML VL ONE ×2 (10:28→10:33)
[2017-11-07] MEDS: MIDAZOLAM HCL 5 MG/ML-1ML VIAL ONE ×2 (10:28→10:33)
[2017-11-07] MEDS ORDERED: GOLYTELY 4L KIT PO ONE (11:00)
[2017-11-07] MEDS: VORICONAZOLE 50 MG TAB PO SCH (12:57)
[2017-11-08] VITALS: BP 130/71
[2017-11-08 04:00] VITALS: BP 133/82
[2017-11-08] MEDS ORDERED: GOLYTELY 4L KIT PO ONE (04:00)
[2017-11-08 04:22] VITALS: BP 133/82
[2017-11-08] MEDS: IPRATROPIUM BROM 0.5 MG/2.5ML INH SOL NEB SCH ×4 (06:26→18:55)
[2017-11-08] MEDS ORDERED: SODIUM CHLORIDE LOCK 10 ML ONE (08:22)
[2017-11-08] MEDS ORDERED: diphenhdrAMINE HCL 50 MG/1 ML VL ONE (08:22)
[2017-11-08 08:32] LABS: Basophils # (auto) 0 uL; Basophils % (auto) 1.2 % (0.0-2.0); Eosinophils # (auto) 0 uL; Hematocrit 28.2 % (36.0-46.0); Hemoglobin 9.5 g/dL (12.2-16.2); Lymphocytes # (auto) 0.8 uL; Lymphocytes % (auto) 21.6 % (10.0-50.0); Mean Corpuscular Hemoglobin 33.3 pg (28.0-32.0); Mean Corpuscular Hgb Conc. 33.6 g/dL (32.0-36.0); Mean Corpuscular Volume 99.2 fL (80.0-100.0); Monocytes # (auto) 0.4 uL; Monocytes % (auto) 11.6 % (0.0-12.0); Neutrophils # (auto) 2.3 uL; Neutrophils % (auto) 64.6 % (37.0-80.0); Nucleated Red Blood Cells % 0.4 %; Platelet Count (auto) 318 10^3/uL (140-450); Red Blood Cells 2.84 10^6/uL (4.0-5.20); White Blood Cell 3.5 10^3/uL (4.4-10.8)
[2017-11-08 08:52] LABS: Red Cell Distribution Width 30.7 % (11.8-14.3)
[2017-11-08 08:56] LABS: Albumin 2.5 g/dL (3.4-5.0); Calcium 8.9 mg/dL (8.5-10.1); Potassium 4.2 mmol/L (3.5-5.1)
[2017-11-08 08:58] LABS: BUN/Creatinine Ratio 7.7
[2017-11-08 09:01] LABS: Bilirubin, Total 0.5 mg/dL (0.2-1.0); Total Protein 6.6 g/dL (6.4-8.2)
[2017-11-08] MEDS: MIDAZOLAM HCL 5 MG/ML-1ML VIAL ONE ×4 (11:53→12:08)
[2017-11-08] MEDS: fentaNYL CITRATE 100 MCG/2 ML VL ONE ×4 (11:53→12:08)
[2017-11-08] MEDS: VORICONAZOLE 50 MG TAB PO SCH (14:59)
[2017-11-08 16:00] VITALS: BP 120/51
[2017-11-08 20:00] VITALS: BP 129/63
[2017-11-08 21:31] VITALS: BP 129/63
[2017-11-09] VITALS: BP 151/78
[2017-11-09 04:00] VITALS: BP 133/58
[2017-11-09 04:10] VITALS: BP 133/58
[2017-11-09 05:40] LABS: Basophils # (auto) 0 uL; Basophils % (auto) 0.9 % (0.0-2.0); Eosinophils # (auto) 0.1 uL; Hematocrit 27.6 % (36.0-46.0); Hemoglobin 9.1 g/dL (12.2-16.2); Lymphocytes # (auto) 0.8 uL; Lymphocytes % (auto) 20.3 % (10.0-50.0); Mean Corpuscular Hgb Conc. 32.8 g/dL (32.0-36.0); Mean Corpuscular Volume 100.5 fL (80.0-100.0); Monocytes # (auto) 0.6 uL; Monocytes % (auto) 16.1 % (0.0-12.0); Neutrophils # (auto) 2.2 uL; Neutrophils % (auto) 59.7 % (37.0-80.0); Nucleated Red Blood Cells % 0.1 %; Platelet Count (auto) 261 10^3/uL (140-450); Red Blood Cells 2.75 10^6/uL (4.0-5.20); White Blood Cell 3.7 10^3/uL (4.4-10.8)
[2017-11-09 05:56] LABS: Red Cell Distribution Width 30.8 % (11.8-14.3)
[2017-11-09 05:57] LABS: Potassium 4.4 mmol/L (3.5-5.1)
[2017-11-09 05:59] LABS: BUN/Creatinine Ratio 21.2
[2017-11-09] MEDS: IPRATROPIUM BROM 0.5 MG/2.5ML INH SOL NEB SCH ×2 (06:26→10:05)
[2017-11-09 09:00] VITALS: BP 135/67
[2017-11-09] MEDS: VORICONAZOLE 50 MG TAB PO SCH (09:33)
== END 2017-11-09 10:08 | disposition home or self-care (01) | DRG 378 ==
LOC: ER 13:06 → EDBD 13:06 → OVERFLOW 13:07 → DOU IN ICU 20:14
PROVIDERS: ADMIT Internal Medicine; ATTEND Internal Medicine
PROC: 30233N1 Transfusion of Nonautologous Red Blood Cells into Peripheral Vein, Percutaneous Approach (ICD-10-PCS; principal; 2017-11-05)
PROC: 5A09357 Assistance with Respiratory Ventilation, Less than 24 Consecutive Hours, Continuous Positive Airway Pressure (ICD-10-PCS; 2017-11-05)
PROC: 0DB98ZX Excision of Duodenum, Via Natural or Artificial Opening Endoscopic, Diagnostic (ICD-10-PCS; 2017-11-07)
PROC: 5A09357 Assistance with Respiratory Ventilation, Less than 24 Consecutive Hours, Continuous Positive Airway Pressure (ICD-10-PCS; 2017-11-07)
PROC: 0DJD8ZZ Inspection of Lower Intestinal Tract, Via Natural or Artificial Opening Endoscopic (ICD-10-PCS; 2017-11-08)
PROC: 5A09357 Assistance with Respiratory Ventilation, Less than 24 Consecutive Hours, Continuous Positive Airway Pressure (ICD-10-PCS; 2017-11-08)
PROC: 5A09357 Assistance with Respiratory Ventilation, Less than 24 Consecutive Hours, Continuous Positive Airway Pressure (ICD-10-PCS; 2017-11-09)
DX: K92.1 Melena (principal); E44.0 Moderate protein-calorie malnutrition; D50.0 Iron deficiency anemia secondary to blood loss (chronic); E83.42 Hypomagnesemia; D71 Functional disorders of polymorphonuclear neutrophils; E03.9 Hypothyroidism, unspecified; E78.5 Hyperlipidemia, unspecified; I11.0 Hypertensive heart disease with heart failure; M19.90 Unspecified osteoarthritis, unspecified site; I25.10 Atherosclerotic heart disease of native coronary artery without angina pectoris; I50.9 Heart failure, unspecified; I73.9 Peripheral vascular disease, unspecified; J44.9 Chronic obstructive pulmonary disease, unspecified; K21.9 Gastro-esophageal reflux disease without esophagitis; K44.9 Diaphragmatic hernia without obstruction or gangrene; K57.90 Diverticulosis of intestine, part unspecified, without perforation or abscess without bleeding; K64.8 Other hemorrhoids; N28.1 Cyst of kidney, acquired; Z82.3 Family history of stroke; Z82.49 Family history of ischemic heart disease and other diseases of the circulatory system; Z83.3 Family history of diabetes mellitus; Z86.711 Personal history of pulmonary embolism; Z87.891 Personal history of nicotine dependence; Z79.899 Other long term (current) drug therapy; Z88.8 Allergy status to other drugs, medicaments and biological substances; Z88.0 Allergy status to penicillin; Z90.49 Acquired absence of other specified parts of digestive tract; Z68.28 Body mass index [BMI] 28.0-28.9, adult
CPT/HCPCS: 36415; 43239; 45378; 71045; 71250; 74177; 80048; 80053; 81001; 82150; 83690; 83735; 83880; 84443; 84484; 85025; 85610; 85730; 86850; 86900; 86901; 86920; 87081; 93005; 94640; 94660; A6257; C9113; J2250; J2405

== ENCOUNTER 2018-10-28 23:05 | Emergency (ER) | payer OTHER, MEDICAID ==
[~2018-10-28] VITALS: Ht 149.9 cm; Wt 64.0 kg
[~2018-10-28 23:05] MED LIST changes: +LOSA25TA38 PO; -LOSA25TA9 PO; +ONDA-144 PO; -ONDA4TAB5 PO; +POTA-220 PO; -POTA20TA53 PO
[2018-10-29] LABS: Basophils # (auto) 0 uL; Eosinophils # (auto) 0 uL; Eosinophils % (auto) 0.4 % (0.0-7.0); Hemoglobin 9.8 g/dL (12.2-16.2); Monocytes # (auto) 0.3 uL; Nucleated Red Blood Cells % 0.1 %
[2018-10-29 00:02] LABS: Basophils % (auto) 0.4 % (0.0-2.0); Hematocrit 29.5 % (36.0-46.0); Lymphocytes # (auto) 0.5 uL; Lymphocytes % (auto) 8.9 % (10.0-50.0); Mean Corpuscular Hgb Conc. 33.3 g/dL (32.0-36.0); Mean Corpuscular Volume 105.4 fL (80.0-100.0); Monocytes % (auto) 5.5 % (0.0-12.0); Neutrophils # (auto) 4.9 uL; Neutrophils % (auto) 84.8 % (37.0-80.0); Platelet Count (auto) 225 10^3/uL (140-450); Red Cell Distribution Width 17.2 % (11.8-14.3); White Blood Cell 5.7 10^3/uL (4.4-10.8)
[2018-10-29 00:17] LABS: Albumin 3.5 g/dL (3.4-5.0); Anion Gap 11 (5-15); BUN/Creatinine Ratio 25.9; Blood Urea Nitrogen 30 mg/dL (7-18); Calcium 8.2 mg/dL (8.5-10.1); Carbon Dioxide 21 mmol/L (21-32); Chloride 107 mmol/L (98-107); GFR African American 59 mL/min; GFR Non-African American 49 mL/min; Glucose 82 mg/dL (74-106); Potassium 3.5 mmol/L (3.5-5.1); Sodium 139 mmol/L (136-145)
[2018-10-29 00:22] LABS: Alanine Aminotransferase 29 U/L (13-56); Alkaline Phosphatase 151 U/L (45-117); Aspartate Aminotransferase 45 U/L (15-37); Bilirubin, Total 0.4 mg/dL (0.2-1.0); Total Protein 7.7 g/dL (6.4-8.2)
[2018-10-29 10:04] LABS: Urine Bacteria FEW /hpf (None Seen); Urine Blood Negative /uL (Negative); Urine Hyaline Cast FEW /lpf (0 - 2); Urine Specific Gravity 1.015 (1.001-1.035); Urine WBC 1 /hpf (0 - 5)
[2018-10-29 10:30] VITALS: BP 119/61
[2018-10-29] MEDS ORDERED: CYANOCOBALAMIN (B-12) 1000 MCG/1 ML VIAL IM ONE (11:00)
== END 2018-10-29 11:32 | disposition home or self-care (01) ==
LOC: ER 23:11
DX: K44.9 Diaphragmatic hernia without obstruction or gangrene (principal); D53.9 Nutritional anemia, unspecified; K21.9 Gastro-esophageal reflux disease without esophagitis; I11.0 Hypertensive heart disease with heart failure; I50.9 Heart failure, unspecified; J44.9 Chronic obstructive pulmonary disease, unspecified; Z90.49 Acquired absence of other specified parts of digestive tract; Z87.891 Personal history of nicotine dependence; Z88.0 Allergy status to penicillin; Z88.8 Allergy status to other drugs, medicaments and biological substances
CPT/HCPCS: 36415; 74176; 80053; 81001; 84484; 85025; 93005; 96372; 99284; J3420

== ENCOUNTER 2019-08-30 15:55 | Inpatient (IN) | payer OTHER, MEDICAID ==
[~2019-08-30] VITALS: Ht 149.9 cm; Wt 66.7 kg
[2019-08-30] MEDS: MAGNESIUM SULFATE 1GM/100ML 100 ML IV SCH ×2 (02:50→21:50)
[~2019-08-30 15:55] MED LIST changes: +METH2.5T PO; -METH2.5T3 PO; +WARF2TAB49 PO
[2019-08-30 18:37] LABS: Basophils # (auto) 0 10 ^3/uL (0-0.2); Eosinophils # (auto) 0.1 10 ^3/uL (0-0.8); Hematocrit 17.1 % (36.0-46.0); Lymphocytes # (auto) 0.5 10 ^3/uL (0.4-5.4); Monocytes # (auto) 0.6 10 ^3/uL (0-1.3); Platelet Count (auto) 226 10^3/uL (140-450); White Blood Cell 4.6 10^3/uL (4.4-10.8)
[2019-08-30 18:41] LABS: Basophils % (auto) 0.7 % (0.0-2.0); Eosinophils % (auto) 2.2 % (0.0-7.0); Lymphocytes % (auto) 11.4 % (10.0-50.0); Mean Corpuscular Hemoglobin 34.7 pg (28.0-32.0); Mean Corpuscular Hgb Conc. 33.3 g/dL (32.0-36.0); Mean Corpuscular Volume 104.3 fL (80.0-100.0); Monocytes % (auto) 13.5 % (0.0-12.0); Neutrophils # (auto) 3.3 10 ^3/uL (1.6-8.6); Neutrophils % (auto) 72.2 % (37.0-80.0); Nucleated Red Blood Cells % 1.2 %; Red Blood Cells 1.64 10^6/uL (4.0-5.20)
[2019-08-30 18:48] LABS: Red Cell Distribution Width 22.6 % (11.8-14.3)
[2019-08-30 19:00] LABS: Albumin 2.8 g/dL (3.4-5.0); Anion Gap 9 (5-15); BUN/Creatinine Ratio 34.5; Blood Urea Nitrogen 58 mg/dL (7-18); Calcium 8.9 mg/dL (8.5-10.1); Carbon Dioxide 17 mmol/L (21-32); Chloride 108 mmol/L (98-107); GFR African American 38 mL/min; GFR Non-African American 32 mL/min; Glucose 100 mg/dL (74-106); Potassium 4.5 mmol/L (3.5-5.1); Sodium 134 mmol/L (136-145)
[2019-08-30 19:05] LABS: Alanine Aminotransferase 24 U/L (13-56); Alkaline Phosphatase 220 U/L (45-117); Aspartate Aminotransferase 27 U/L (15-37); Bilirubin, Total 0.2 mg/dL (0.2-1.0); Total Protein 6.9 g/dL (6.4-8.2)
[2019-08-30 19:08] LABS: Magnesium 0.8 mg/dL (1.6-2.6)
[2019-08-30 19:09] LABS: Hemoglobin 5.7 g/dL (12.2-16.2)
[2019-08-30] MEDS ORDERED: PANTOPRAZOLE 40 MG/10 ML VIAL INJ IV ONE (19:30)
[2019-08-30 20:05] LABS: INR > 8.0 (0.9-1.15); Partial Thromboplastin Time 110.2 sec (23.64-32.05)
[2019-08-30] MEDS ORDERED: SODIUM CHLORIDE 0.9% 1,000 ML IV ONE ×3 (21:45→23:00)
[2019-08-30] MEDS ORDERED: NITROGLYCERIN 0.4 MG SL TAB SL SCH (23:00)
[2019-08-30] MEDS ORDERED: IPRATROPIUM BROM 0.5 MG/2.5ML INH SOL NEB PRN (23:00)
[2019-08-30] MEDS ORDERED: ALBUTEROL SULF 2.5 MG/0.5ML(0.5%) NEB SOLN NEB PRN (23:00)
[2019-08-30] MEDS ORDERED: phytonadione 10 MG in SODIUM CHL 0.9% 50 ML IV ONE (23:00)
[2019-08-30] MEDS ORDERED: METHOTREXATE 2.5 MG TAB PO SCH (23:00)
[2019-08-30 23:21] VITALS: BP 90/45
[2019-08-30] MEDS ORDERED: phytonadione 1 ML ONE (23:57)
[2019-08-31] VITALS (19 sets, daily range): BP systolic 92–134; BP diastolic 38–85
[2019-08-31] MEDS ORDERED: ONDANSETRON HCL 4 MG/2 ML VIAL IV PRN
[2019-08-31] MEDS ORDERED: LORazepam 0.5 MG TAB PO PRN
[2019-08-31] MEDS ORDERED: MORPHINE SULF INJ 2 MG/ML SYRINGE 1ML IV PRN
[2019-08-31] MEDS ORDERED: HYDROcodone-ACET 5/325MG TAB PO PRN
[2019-08-31] MEDS ORDERED: ACETAMINOPHEN 325 MG TAB PO PRN
[2019-08-31] MEDS ORDERED: MAGNESIUM SULFATE 1GM/100ML 100 ML IV ONE (02:46)
--- NOTE | 2019-08-31 03:18 | NUR ---
Admit to [facility] RONALD LUCERO admitted to [facility] via gurney on city alderman, and portable 02. Patient transferred to bed, connected to unit monitoring and oxygen, and weighed by bedscale. Patient oriented to Ida Verde, primary RN, unit, room, bed, and unit policies regarding patient care and visiting hours. All questions and concerns addressed, patient verbalized understanding.
--- NOTE | 2019-08-31 06:14 | NUR ---
Respiratory note: Assessed pt for prn medneb tx. HR 88, RR 14, SPO2 100% on 2lpm nasal cannula. Breath sounds clear/dim. Pt denies SOB. No s/s of respiratory distress noted. Medneb tx not indicated at this time. Informed pt about medneb txs, advised to call for RT if needed, pt verbalized understanding.
[2019-08-31] MEDS: SODIUM CHLORIDE 0.9% 1,000 ML IV SCH ×2 (06:45→16:29)
--- NOTE | 2019-08-31 07:00 | NUR ---
PRBC infused, FFP infusing. Report given to AM shift, care endorsed. Pt stable at time of report.
--- NOTE | 2019-08-31 07:40 | NUR ---
OPENING SHIFT NOTE REPORT RECEIVED FROM CONTRACT PROGRAMMER RN, MORNING ASSESSMENT PERFORMED AND DOCUMENTED. 73 YEAR OLD FEMALE, SITTING UP IN BED WATCHING TELEVISION. PATIENT ALERT AND ORIENTED X4, NO DISTRESS NOTED, RESPIRATIONS EVEN AND UNLABORED CURRENTLY ON 2 LITERS NASAL CANNULA. PATIENT DENIES PAIN OR DISCOMFORT AT THIS TIME. PATIENT DENIES HISTORY OF FALLS AND REPORTS HAVING BILATERAL LEG PAIN AND HAS DIFFICULTY GETTING UP QUICKLY TO USE THE RESTROOM. THIS NURSE EXPLAINED THE NEED TO CALL STAFF TO PLACE ON BEDPAN AT ANY TIME AND THAT OUR FACILITY DOES NOT ENCOURAGE USE OF DIAPERS TO MAINTAIN SKIN INTEGRITY - PATIENT VERBALIZED UNDERSTANDING. FALL AND SAFETY PRECAUTIONS IN PLACE, ALL PERSONAL BELONGINGS WITHIN REACH. WILL CONTINUE TO MONITOR.
[2019-08-31] MEDS: LEVOTHYROXINE SODIUM 50 MCG TAB PO SCH (08:11)
--- NOTE | 2019-08-31 09:42 | NUR ---
HOSPITALIST AT BEDSIDE DR ALFONSO UPDATED ON PATIENT'S STATUS, MD AWARE OF PENDING REPEAT BMP AND HELD UNTIL AFTER BLOOD PRODUCTS ADMINISTRATION. MD REQUESTING CALL ONCE LAB RESULTS ARE AVAILABLE TO DETERMINE POSSIBLE DOWNGRADE. DR ALFONSO ORDERED NO ZEE CATHETER OR CENTRAL LINE AT THIS TIME. DR ALFONSO DISCUSSED PLAN OF CARE WITH PATIENT AND PATIENT REPORTED NOT ABLE TO GET COUMADIN CHECKED FOR "ABOUT ONE MONTH". DR DISCUSSED IMPORTANCE AND REASON FOR ADMISSION WITH PATIENT, PATIENT VERBALIZED UNDERSTANDING.
[2019-08-31] MEDS ORDERED: PANTOPRAZOLE 40 MG TAB PO SCH (10:00)
[2019-08-31] MEDS: POTASSIUM CHL 20 Meq TABLET PO SCH (10:37)
[2019-08-31] MEDS: FUROSEMIDE 20 MG TAB PO SCH ×2 (10:37→21:28)
[2019-08-31] MEDS: LOSARTAN POTASSIUM 25 MG TAB PO SCH (10:38)
[2019-08-31] MEDS: DOCUSATE SOD 100 MG CAP PO SCH ×2 (10:42→21:20)
[2019-08-31 11:32] LABS: Basophils # (auto) 0 10 ^3/uL (0-0.2); Eosinophils # (auto) 0.1 10 ^3/uL (0-0.8); Monocytes # (auto) 0.3 10 ^3/uL (0-1.3); Neutrophils # (auto) 2.4 10 ^3/uL (1.6-8.6); White Blood Cell 3.1 10^3/uL (4.4-10.8)
[2019-08-31 11:33] LABS: Basophils % (auto) 0.6 % (0.0-2.0); Eosinophils % (auto) 2.6 % (0.0-7.0); Hematocrit 21.3 % (36.0-46.0); Hemoglobin 7.2 g/dL (12.2-16.2); Lymphocytes # (auto) 0.4 10 ^3/uL (0.4-5.4); Lymphocytes % (auto) 11.3 % (10.0-50.0); Mean Corpuscular Hemoglobin 32.8 pg (28.0-32.0); Mean Corpuscular Hgb Conc. 33.8 g/dL (32.0-36.0); Monocytes % (auto) 9.8 % (0.0-12.0); Neutrophils % (auto) 75.7 % (37.0-80.0); Nucleated Red Blood Cells % 0.2 %; Platelet Count (auto) 179 10^3/uL (140-450)
[2019-08-31 11:35] LABS: Red Cell Distribution Width 21.9 % (11.8-14.3)
--- NOTE | 2019-08-31 11:45 | NUR ---
MESSAGE LEFT FOR DR ALFONSO WITH OFFICE STAFF RICKIE REGARDING REPEAT H&H. LAB VALUE GIVEN TO OFFICE STAFF, AWAITING RESPONSE.
[2019-08-31 11:51] LABS: BUN/Creatinine Ratio 42.4; Calcium 8.9 mg/dL (8.5-10.1); Potassium 4.2 mmol/L (3.5-5.1)
--- NOTE | 2019-08-31 12:30 | NUR ---
RETURN CALL FROM DR ALFONSO/OUT OF BED/MIDLINE RETURN CALL FROM DR ALFONSO, DR ALFONSO AWARE OF REPEAT H&H AND MAGNESIUM LEVEL. ORDERS FOR ONE UNIT PRBC TRANSFUSION RECEIVED AND NO MAG REPLACEMENT AT THIS TIME. PATIENT AWARE, ORDERS WILL BE CARRIED OUT. MIDLINE PLACEMENT 18 GAUGE TO LEFT UPPER ARM, PATIENT TOLERATED WELL. PATIENT ASSISTED TO BEDSIDE CHAIR FOR LUNCH, PATIENT ABLE TO TRANSFER FROM BED TO CHAIR WITH MINIMAL ASSISTANCE. PATIENT WATCHING TELEVISION AND CLEAR LIQUID DIET PROVIDED.
--- NOTE | 2019-08-31 12:30 | NUR ---
Midline Placement: Patient educated on need for midline placement. All risks and benefits explained and all questions and concerns addresses prior to procedure. 18g/8cm midline inserted via left brachial vein using Ultrasound. Sterile technique utilized. Blood return obtained from lumen and flushed easily with NS using proper technique. Midline secured with saline lock; biodisc and occlusive dressing applied. Primary RN notified. Midline lot # [id number]
[2019-08-31] MEDS: VERAPAMIL HCL 120 mg ER tab PO SCH (13:31)
--- NOTE | 2019-08-31 13:33 | NUR ---
GI CONSULT AT BESIDE DR GOLD DISCUSSED PLAN OF CARE WITH PATIENT - ORDERS FOR EGD RECEIVED AND DISCUSSED WITH PATIENT BY MD. DR GOLD AWARE OF REPEAT H&H AND PENDING TRANSFUSION OF ONE UNIT PRBC BY DR ALFONSO. DR GOLD ORDERED COAGULATION LEVEL TO DETERMINE IF PATIENT WILL ALSO NEED FFP. PATIENT AWARE OF NPO STATUS AFTER MIDNIGHT. WILL CONTINUE TO MONITOR.
[2019-08-31 14:19] LABS: INR 1.18 (0.9-1.15)
--- NOTE | 2019-08-31 16:15 | NUR ---
ONE UNIT PRBC TRANSFUSING ORDERED BY MD. PATIENT ALERT AND ORIENTED X4, NO DISTRESS NOTED, RESPIRATIONS EVEN AND UNLABORED. DISCUSSED SIGNS AND SYMPTOMS OF TRANSFUSION REACTION WITH PATIENT, PATIENT VERBALIZED UNDERSTANDING. VSS AND DOCUMENTED, IV SITE PATENT. WILL MONITOR PATIENT.
--- NOTE | 2019-08-31 16:30 | NUR ---
15 MIN TRANSFUSION REASSESSMENT PATIENT WORKING ON CROSSWORD PUZZLE, ALERT AND ORIENTED X4, NO DISTRESS NOTED, RESPIRATIONS EVEN AND UNLABORED. VSS AND DOCUMENTED. WILL CONTINUE TO MONITOR DURING SHIFT.
--- NOTE | 2019-08-31 17:06 | NUR ---
45 MIN TRANSFUSION REASSESSMENT PATIENT ALERT AND ORIENTED X4, NO DISTRESS NOTED, RESPIRATIONS EVEN AND UNLABORED. PATIENT SITTING UP IN BED WORKING ON FTL SOLARWmyJambiLE, PATIENT DENIES ANY PAIN OR DISCOMFORT AT THIS TIME - VSS AND DOCUMENTED.
--- NOTE | 2019-08-31 18:22 | NUR ---
RT NOTE: PT ASSESSED FOR PRN MED NEB TX, PT ON 3LPM NC SPO2 100%, BS CLEAR. PT DENIES SOB AT THIS TIME. PT NOTIFIED TO HAVE RT PAGED IF SOB OCCURS.
--- NOTE | 2019-08-31 19:23 | NUR ---
TRANSFUSION COMPLETE/END OF SHIFT NOTE ONE UNIT PRBC ORDERED BY MD COMPLETED, VSS AND DOCUMENTED, PATIENT DENIES PAIN OR DISCOMFORT AT THIS TIME. PATIENT SITTING UP IN BED WATCHING TELEVISION, NO DISTRESS NOTED, RESPIRATIONS EVEN AND UNLABORED. FALL AND SAFETY PRECAUTIONS IN PLACE. ENDORSED CONTINUED CARE TO SUPPLIER DIVERSITY DIRECTOR RN INCLUDING CONSENT SIGNING FOR EGD AND COMPLETION OF CHECK OFF LIST.
[2019-08-31] MEDS: CILOSTAZOL 100 MG TAB PO SCH (21:25)
[2019-08-31] MEDS: PANTOPRAZOLE 40 MG TAB PO SCH (21:28)
[2019-09-01] VITALS (8 sets, daily range): BP systolic 108–158; BP diastolic 46–101
--- NOTE | 2019-09-01 02:48 | NUR ---
PT APPEARS TO BE SLEEPING NO DISTRESS NOTED. BREATHING EVEN AND UNLABORED CONNECTED TO BIPAP MACHINE. WILL CONTINUE TO MONITOR.
--- NOTE | 2019-09-01 04:26 | NUR ---
OCCULT STOOL UNABLE PT HAS HAD NO BM. IF UNABLE ON SHIFT,WILL ENDORSE TO DAY NURSE.
[2019-09-01 04:35] LABS: INR 1.07 (0.9-1.15)
[2019-09-01] MEDS: SODIUM CHLORIDE 0.9% 1,000 ML IV SCH ×2 (04:35→14:46)
[2019-09-01 04:38] LABS: Albumin 2.7 g/dL (3.4-5.0); Anion Gap 8 (5-15); BUN/Creatinine Ratio 30.4; Blood Urea Nitrogen 21 mg/dL (7-18); Calcium 8.3 mg/dL (8.5-10.1); Carbon Dioxide 20 mmol/L (21-32); Chloride 113 mmol/L (98-107); GFR African American 107 mL/min; GFR Non-African American 89 mL/min; Glucose 69 mg/dL (74-106); Magnesium 1.5 mg/dL (1.6-2.6); Potassium 4.2 mmol/L (3.5-5.1); Sodium 141 mmol/L (136-145)
[2019-09-01 04:40] LABS: Hematocrit 27.7 % (36.0-46.0); Hemoglobin 9.3 g/dL (12.2-16.2); Mean Corpuscular Hemoglobin 31.2 pg (28.0-32.0); Mean Corpuscular Hgb Conc. 33.6 g/dL (32.0-36.0); Platelet Count (auto) 156 10^3/uL (140-450); Red Blood Cells 2.97 10^6/uL (4.0-5.20); Red Cell Distribution Width 19.4 % (11.8-14.3); White Blood Cell 3.4 10^3/uL (4.4-10.8)
[2019-09-01 04:41] LABS: Alanine Aminotransferase 18 U/L (13-56); Alkaline Phosphatase 177 U/L (45-117); Aspartate Aminotransferase 22 U/L (15-37); Bilirubin, Total 0.5 mg/dL (0.2-1.0); Total Protein 6.4 g/dL (6.4-8.2)
[2019-09-01 04:48] LABS: Basophils % (manual) 0 (0.0-2.0); Blast Cells 0; Metamyelocytes % 0; Myelocytes % 0; Promyelocytes % 0; Reactive Lymphocytes 0
[2019-09-01 05:32] LABS: Band Neutrophils % (manual) 2; Eosinophils % (manual) 3 (0-7); Lymphocytes % (manual) 17 (10.0-50.0); Monocytes % (manual) 12 (0-12)
[2019-09-01] MEDS: LEVOTHYROXINE SODIUM 50 MCG TAB PO SCH (06:43)
--- NOTE | 2019-09-01 07:45 | NUR ---
ASSESS- PT. LYING IN BED AWAKE, ALERT AND ORIENTED TIMES FOUR. DENIES ANY PAIN OR DISCOMFORT. LUNGS CLEAR MARTI. INSPIRATORY AND EXPIRATORY. NO SOB. O2 2L N/C. ABD. SOFT, FLAT, NON-TENDER. NO N/V. BOWEL SOUNDS ALL FOUR QUADRANTS. RADIAL PULSES STRONG, PALPABLE MARTI. DORSALIS PEDAL PULSES STRONG, PALPABLE MARTI. NO EDEMA. MID-LINE LT. UPPER ARM INTACT. SKIN INTACT. PT. MOVES UPPER AND LOWER EXTREMITIES, WEAK.
[2019-09-01] MEDS ORDERED: LIDOCAINE VISCOUS 2% 15ML UD ONE (08:13)
[2019-09-01] MEDS ORDERED: FLUMAZENIL 0.1 MG/ML INJ 10ML MDV IV ONE (08:13)
[2019-09-01] MEDS ORDERED: NALOXONE HCL 0.4 MG/ML VIAL ONE (08:13)
[2019-09-01] MEDS ORDERED: SODIUM CHLORIDE LOCK 10 ML ONE (08:13)
[2019-09-01] MEDS ORDERED: diphenhdrAMINE HCL 50 MG/1 ML VL ONE (08:14)
--- NOTE | 2019-09-01 09:00 | NUR ---
OR NURSE AND TECH HERE TO TAKE PT. FOR EGD BY DR. GOLD. PT. HAS BEEN NPO SINCE MIDNIGHT. CONSENT SIGNED BY PT. FOR PROCEDURE AND MODERATE SEDATION BY PT. VSS. PT. TAKEN ON LIQUID CENTER ASSEMBLER AND PORTABLE O2.
[2019-09-01] MEDS: MIDAZOLAM HCL 5 MG/ML-1ML VIAL ONE ×2 (09:18→09:23)
[2019-09-01] MEDS: fentaNYL CITRATE 100 MCG/2 ML VL ONE ×2 (09:18→09:23)
--- NOTE | 2019-09-01 09:47 | NUR ---
DR. BERMAN Provider/Hospitalist at bedside. PT. IS IN OR AT THIS TIME. GAVE UPDATE ON PT.
[2019-09-01] MEDS: POTASSIUM CHL 20 Meq TABLET PO SCH (10:00)
[2019-09-01] MEDS: LOSARTAN POTASSIUM 25 MG TAB PO SCH (10:00)
[2019-09-01] MEDS: VERAPAMIL HCL 120 mg ER tab PO SCH (10:00)
[2019-09-01] MEDS: FUROSEMIDE 20 MG TAB PO SCH ×2 (10:00→18:30)
[2019-09-01] MEDS: DOCUSATE SOD 100 MG CAP PO SCH ×2 (10:00→21:15)
[2019-09-01] MEDS: PANTOPRAZOLE 40 MG TAB PO SCH ×2 (10:00→21:15)
[2019-09-01] MEDS: CILOSTAZOL 100 MG TAB PO SCH ×2 (10:00→21:15)
--- NOTE | 2019-09-01 10:15 | NUR ---
PT. RETURNED FROM GI LAB, REPORT RECEIVED. PT. AWAKE, ALERT AND ORIENTED TIMES FOUR. DENIES ANY PAIN OR DISCOMFORT. ON LINE REPAIRER AND O2 2L N/C.
--- NOTE | 2019-09-01 12:50 | NUR ---
Est energy needs 2521-0494 kcal (23-25 kcal/kg BW 73kg) Est protein needs 58-73g (0.8-1g/kg BW 73kg) Will reassess prn. Addendum: 09/01/19 at [address] Amended: Links added.
--- NOTE | 2019-09-01 13:00 | NUR ---
PT. EATING 2GM. NA DIET FOR LUNCH. NO N/V. TOLERATING WELL.
--- NOTE | 2019-09-01 17:30 | NUR ---
PT. HAS HAD NO EPISODES OF VOMITING TODAY, NO BM'S. NO SIGNS OF BLEEDING. WILL DOWNGRADE TO TELE THIS EVENING IF CONTINUES TO HAVE NO SIGNS OF BLEEDING ON THIS SHIFT PER DR. ALFONSO.
--- NOTE | 2019-09-01 19:53 | NUR ---
[facility] report Received report from [facility] Trotter RN regarding transfer of patient from [facility] to [facility]. Room and bed cleaned and awaiting arrival of patient.
--- NOTE | 2019-09-01 22:10 | NUR ---
Received patient Received patient from [facility], patient in bed resting comfortably, no s/s of distress, pain, or SOB, breaths even and regular. Call light within reach, bed in lowest position x2 side rails, HOB >30. Patient instructed to call for assistance if needed.
[2019-09-02 05:00] VITALS: BP 121/65
--- NOTE | 2019-09-02 06:00 | NUR ---
REMOVED PT FROM BIPAP, SPO2 98%, HR 82, RR 16. 02 ON FOR PT USE. PT SAYS SHE WEARS HER NC NEEDED. WILL CONTINUE TO MONITOR PT.
[2019-09-02] MEDS: FUROSEMIDE 20 MG TAB PO SCH ×2 (06:41→17:58)
[2019-09-02] MEDS: LEVOTHYROXINE SODIUM 50 MCG TAB PO SCH (06:41)
[2019-09-02 06:45] LABS: Albumin 2.3 g/dL (3.4-5.0); BUN/Creatinine Ratio 21.2; Bilirubin, Total 0.4 mg/dL (0.2-1.0); Calcium 8.3 mg/dL (8.5-10.1); Potassium 3.9 mmol/L (3.5-5.1); Total Protein 5.8 g/dL (6.4-8.2)
[2019-09-02 06:57] LABS: Basophils # (auto) 0 10 ^3/uL (0-0.2); Basophils % (auto) 0.6 % (0.0-2.0); Eosinophils # (auto) 0.1 10 ^3/uL (0-0.8); Eosinophils % (auto) 2.7 % (0.0-7.0); Hematocrit 24.8 % (36.0-46.0); Hemoglobin 8.3 g/dL (12.2-16.2); Lymphocytes # (auto) 0.4 10 ^3/uL (0.4-5.4); Lymphocytes % (auto) 10.9 % (10.0-50.0); Mean Corpuscular Hemoglobin 31.3 pg (28.0-32.0); Mean Corpuscular Hgb Conc. 33.6 g/dL (32.0-36.0); Mean Corpuscular Volume 93.2 fL (80.0-100.0); Monocytes # (auto) 0.5 10 ^3/uL (0-1.3); Monocytes % (auto) 15.1 % (0.0-12.0); Neutrophils # (auto) 2.5 10 ^3/uL (1.6-8.6); Neutrophils % (auto) 70.7 % (37.0-80.0); Nucleated Red Blood Cells % 0.2 %; Platelet Count (auto) 186 10^3/uL (140-450); Red Blood Cells 2.66 10^6/uL (4.0-5.20); Red Cell Distribution Width 19.5 % (11.8-14.3); White Blood Cell 3.5 10^3/uL (4.4-10.8)
--- NOTE | 2019-09-02 07:30 | NUR ---
Opening Shift Note Assumed care of patient, awake and alert. No S/S of distress/SOB or pain. Bed in lowest and locked position with side rails up X2 and call light in reach. Instructed Pt on POC and to call for assist PRN, will continue to monitor for changes Q1hr and PRN.
[2019-09-02 09:00] VITALS: BP 135/63
[2019-09-02] MEDS: CILOSTAZOL 100 MG TAB PO SCH ×2 (09:25→22:04)
[2019-09-02] MEDS: PANTOPRAZOLE 40 MG TAB PO SCH ×2 (09:26→22:04)
[2019-09-02] MEDS: LOSARTAN POTASSIUM 25 MG TAB PO SCH (09:26)
[2019-09-02] MEDS: VERAPAMIL HCL 120 mg ER tab PO SCH (09:27)
[2019-09-02] MEDS: POTASSIUM CHL 20 Meq TABLET PO SCH (09:28)
[2019-09-02] MEDS: DOCUSATE SOD 100 MG CAP PO SCH ×2 (09:28→22:03)
[2019-09-02 13:00] VITALS: BP 102/57
[2019-09-02 17:00] VITALS: BP 109/49
[2019-09-02] MEDS: SODIUM CHLORIDE 0.9% 1,000 ML IV SCH (17:58)
[2019-09-02 22:00] VITALS: BP 101/51
[2019-09-03 05:00] VITALS: BP 106/49
[2019-09-03] MEDS: FUROSEMIDE 20 MG TAB PO SCH (06:00)
[2019-09-03 06:02] LABS: Basophils # (auto) 0 10 ^3/uL (0-0.2); Basophils % (auto) 0.5 % (0.0-2.0); Eosinophils # (auto) 0.1 10 ^3/uL (0-0.8); Eosinophils % (auto) 2.4 % (0.0-7.0); Hematocrit 27.6 % (36.0-46.0); Lymphocytes # (auto) 0.4 10 ^3/uL (0.4-5.4); Lymphocytes % (auto) 12.9 % (10.0-50.0); Mean Corpuscular Hemoglobin 31.6 pg (28.0-32.0); Mean Corpuscular Hgb Conc. 32.6 g/dL (32.0-36.0); Mean Corpuscular Volume 96.9 fL (80.0-100.0); Monocytes # (auto) 0.5 10 ^3/uL (0-1.3); Monocytes % (auto) 14.5 % (0.0-12.0); Neutrophils # (auto) 2.3 10 ^3/uL (1.6-8.6); Neutrophils % (auto) 69.7 % (37.0-80.0); Nucleated Red Blood Cells % 0.2 %; Platelet Count (auto) 206 10^3/uL (140-450); Red Blood Cells 2.85 10^6/uL (4.0-5.20); Red Cell Distribution Width 20.6 % (11.8-14.3); White Blood Cell 3.2 10^3/uL (4.4-10.8)
[2019-09-03 06:15] LABS: Calcium 8.7 mg/dL (8.5-10.1); Potassium 3.9 mmol/L (3.5-5.1)
[2019-09-03 06:22] LABS: Albumin 2.4 g/dL (3.4-5.0); BUN/Creatinine Ratio 19.7; Bilirubin, Total 0.5 mg/dL (0.2-1.0); Total Protein 6.1 g/dL (6.4-8.2)
[2019-09-03] MEDS: LEVOTHYROXINE SODIUM 50 MCG TAB PO SCH (06:32)
[2019-09-03] MEDS: VERAPAMIL HCL 120 mg ER tab PO SCH (09:33)
[2019-09-03] MEDS: POTASSIUM CHL 20 Meq TABLET PO SCH (09:34)
[2019-09-03] MEDS: CILOSTAZOL 100 MG TAB PO SCH (09:34)
[2019-09-03] MEDS: PANTOPRAZOLE 40 MG TAB PO SCH (09:34)
[2019-09-03] MEDS: DOCUSATE SOD 100 MG CAP PO SCH (09:35)
[2019-09-03 09:49] VITALS: BP 108/55
[2019-09-03] MEDS: LOSARTAN POTASSIUM 25 MG TAB PO SCH (10:00)
--- NOTE | 2019-09-03 10:30 | NUR ---
SPOKE TO DR. GOLD. ACCORDING TO DR. GOLD, THE PATIENT IS CLEAR TO DISCHARGE AND RECOMMENDS THE PATIENT FOLLOW UP WITH BROCK YEE OUT PATIENT.
[2019-09-03 10:48] VITALS: BP 108/55
[2019-09-03] MEDS: SODIUM CHLORIDE 0.9% 1,000 ML IV SCH (11:09)
--- NOTE | 2019-09-03 11:50 | NUR ---
Discharge instructions given as ordered. Encourage to follow up with PMD as instructed. All questions and concerns addressed. Patient verbalized understanding. Medication reconciliation form completed and copy given to patient. No Home medications held in Pharmacy. Pt refused vaccines. IV removed with catheter intact, pressure dressing applied. Telemetry unit returned to ICU. Patient taken to vehicle via wheelchair with all personal belongings, accompanied by staff and family member. No distress noted at time of departure.
[2019-09-06] MEDS ORDERED: METHOTREXATE 2.5 MG TAB PO SCH (22:00)
== END 2019-09-03 11:50 | disposition home or self-care (01) | DRG 813 ==
LOC: EDBD 15:55 → ER 15:55 → TELE 15:56 → DOU IN ICU 08-31 03:18 → TELE-CENTR 09-01 22:10
PROVIDERS: ADMIT Hospitalist; ATTEND Internal Medicine
PROC: 30230N1 Transfusion of Nonautologous Red Blood Cells into Peripheral Vein, Open Approach (ICD-10-PCS; principal; 2019-08-30)
PROC: 30233L1 Transfusion of Nonautologous Fresh Plasma into Peripheral Vein, Percutaneous Approach (ICD-10-PCS; 2019-08-31)
PROC: 5A09357 Assistance with Respiratory Ventilation, Less than 24 Consecutive Hours, Continuous Positive Airway Pressure (ICD-10-PCS; 2019-08-31)
PROC: 0DJ08ZZ Inspection of Upper Intestinal Tract, Via Natural or Artificial Opening Endoscopic (ICD-10-PCS; 2019-09-01)
PROC: 5A09357 Assistance with Respiratory Ventilation, Less than 24 Consecutive Hours, Continuous Positive Airway Pressure (ICD-10-PCS; 2019-09-02)
DX: D68.32 Hemorrhagic disorder due to extrinsic circulating anticoagulants (principal); E43 Unspecified severe protein-calorie malnutrition; T45.515A Adverse effect of anticoagulants, initial encounter; D64.9 Anemia, unspecified; K44.9 Diaphragmatic hernia without obstruction or gangrene; Z91.19 Patient's noncompliance with other medical treatment and regimen; I11.0 Hypertensive heart disease with heart failure; I50.9 Heart failure, unspecified; I48.91 Unspecified atrial fibrillation; J44.9 Chronic obstructive pulmonary disease, unspecified; G47.30 Sleep apnea, unspecified; K21.9 Gastro-esophageal reflux disease without esophagitis; Z80.9 Family history of malignant neoplasm, unspecified; Y92.89 Other specified places as the place of occurrence of the external cause; Z82.3 Family history of stroke; Z82.49 Family history of ischemic heart disease and other diseases of the circulatory system; Z83.3 Family history of diabetes mellitus; Z87.891 Personal history of nicotine dependence; Z79.01 Long term (current) use of anticoagulants; Z88.0 Allergy status to penicillin; Z88.8 Allergy status to other drugs, medicaments and biological substances; Z68.28 Body mass index [BMI] 28.0-28.9, adult
CPT/HCPCS: 36415; 43235; 71045; 74176; 80048; 80053; 83735; 83880; 84484; 85007; 85025; 85027; 85610; 85730; 86850; 86900; 86901; 86920; 93005; C9113; G0378; J2250; J3430

== ENCOUNTER 2019-12-07 14:03 | Inpatient (IN) | payer OTHER, MEDICAID ==
[~2019-12-07] VITALS: Ht 149.9 cm; Wt 65.1 kg
[2019-12-07] MEDS ORDERED: SODIUM CHLORIDE 0.9% 500 ML IVB ONE (14:14)
[2019-12-07] MEDS ORDERED: ONDANSETRON HCL 4 MG/2 ML VIAL IV ONE ×2 (14:15→20:15)
[2019-12-07] MEDS ORDERED: MORPHINE SULFATE 4 MG/ML SYR/VIAL IV ONE (14:15)
[2019-12-07 15:39] LABS: Basophils # (auto) 0 10 ^3/uL (0-0.2); Eosinophils # (auto) 0 10 ^3/uL (0-0.8); Hemoglobin 8.6 g/dL (12.2-16.2); Lymphocytes # (auto) 0.3 10 ^3/uL (0.4-5.4); Mean Corpuscular Hemoglobin 33.6 pg (28.0-32.0); Neutrophils # (auto) 2.4 10 ^3/uL (1.6-8.6); Red Blood Cells 2.55 10^6/uL (4.0-5.20)
[2019-12-07 15:43] LABS: Basophils % (auto) 0.7 % (0.0-2.0); Hematocrit 25.9 % (36.0-46.0); Lymphocytes % (auto) 9.2 % (10.0-50.0); Mean Corpuscular Volume 101.9 fL (80.0-100.0); Monocytes # (auto) 0.3 10 ^3/uL (0-1.3); Monocytes % (auto) 8.8 % (0.0-12.0); Neutrophils % (auto) 80.3 % (37.0-80.0); Nucleated Red Blood Cells % 0.5 %; Platelet Count (auto) 191 10^3/uL (140-450); Red Cell Distribution Width 17.8 % (11.8-14.3)
[2019-12-07 15:52] LABS: Albumin 3.4 g/dL (3.4-5.0); Calcium 6.8 mg/dL (8.5-10.1); Potassium 4.1 mmol/L (3.5-5.1)
[2019-12-07 15:55] LABS: Bilirubin, Total 0.3 mg/dL (0.2-1.0); Total Protein 7.9 g/dL (6.4-8.2)
[2019-12-07 17:57] LABS: Urine Bacteria FEW /hpf (None Seen); Urine Blood Negative /uL (Negative); Urine Hyaline Cast MOD /lpf (0 - 2); Urine Mucus FEW (None Seen); Urine Specific Gravity 1.009 (1.001-1.035); Urine WBC 4 /hpf (0 - 5)
[2019-12-07] MEDS ORDERED: NITROGLYCERIN 0.4 MG SL TAB SL PRN (21:15)
[2019-12-07] MEDS ORDERED: MORPHINE SULF INJ 2 MG/ML SYRINGE 1ML IV PRN (21:15)
[2019-12-07] MEDS: SODIUM CHLORIDE 0.9% 1,000 ML IV SCH (22:09)
[2019-12-07] MEDS: metroNIDAZOLE 500MG/100ML 100 ML IV SCH (22:15)
[2019-12-07 22:49] LABS: % Iron Saturation 22.1 % (15-50)
[2019-12-07] MEDS: levoFLOXacin 500MG 100 ML IV SCH (23:02)
[2019-12-07 23:03] LABS: Folate (Folic Acid) > 24.00 ng/mL (5.38-24)
[2019-12-07] MEDS: ONDANSETRON HCL 4 MG/2 ML VIAL IV PRN (23:29)
[2019-12-08 00:56] VITALS: BP 131/65
[2019-12-08] MEDS: HYDROmorphone HCL 2 MG/ML VL IV PRN (02:12)
[2019-12-08 05:00] VITALS: BP 126/65
[2019-12-08] MEDS: PANTOPRAZOLE 40 MG TAB PO SCH (06:00)
[2019-12-08] MEDS: metroNIDAZOLE 500MG/100ML 100 ML IV SCH ×3 (06:00→22:25)
[2019-12-08 06:55] LABS: Basophils # (auto) 0 10 ^3/uL (0-0.2); Eosinophils # (auto) 0 10 ^3/uL (0-0.8); Eosinophils % (auto) 1.1 % (0.0-7.0); Hematocrit 25.9 % (36.0-46.0); Hemoglobin 8.6 g/dL (12.2-16.2); Lymphocytes # (auto) 0.2 10 ^3/uL (0.4-5.4); Lymphocytes % (auto) 9.1 % (10.0-50.0); Mean Corpuscular Hemoglobin 33.9 pg (28.0-32.0); Mean Corpuscular Hgb Conc. 33.2 g/dL (32.0-36.0); Monocytes # (auto) 0.2 10 ^3/uL (0-1.3); Monocytes % (auto) 8.4 % (0.0-12.0); Neutrophils # (auto) 1.6 10 ^3/uL (1.6-8.6); Neutrophils % (auto) 80.4 % (37.0-80.0); Platelet Count (auto) 154 10^3/uL (140-450); Red Blood Cells 2.54 10^6/uL (4.0-5.20); Red Cell Distribution Width 17.7 % (11.8-14.3)
[2019-12-08 07:20] LABS: Albumin 2.9 g/dL (3.4-5.0); BUN/Creatinine Ratio 27.2; Calcium 6.4 mg/dL (8.5-10.1); Potassium 3.4 mmol/L (3.5-5.1)
[2019-12-08 07:22] LABS: Bilirubin, Total 0.3 mg/dL (0.2-1.0); Total Protein 7.3 g/dL (6.4-8.2)
[2019-12-08] MEDS: ONDANSETRON HCL 4 MG/2 ML VIAL IV PRN ×2 (08:03→12:43)
[2019-12-08 08:40] LABS: INR 4.35 (0.9-1.15)
[2019-12-08 08:41] VITALS: BP 123/61
[2019-12-08] MEDS: DOCUSATE SOD 100 MG CAP PO SCH ×2 (09:18→22:25)
[2019-12-08] MEDS ORDERED: POTASSIUM CHLORIDE 20 MEQ, LIDOCAINE 1% (LOCAL ANESTH.) 2 ML in SODIUM CHL 0.9% 100 ML IV ONE (09:45)
[2019-12-08] MEDS ORDERED: ALBUTEROL SULF 2.5 MG/0.5ML(0.5%) NEB SOLN NEB SCH (16:45)
[2019-12-08 17:00] VITALS: BP 140/76
[2019-12-08] MEDS: SODIUM CHLORIDE 0.9% 1,000 ML IV SCH (17:17)
[2019-12-08] MEDS ORDERED: IPRATROPIUM BROM 0.5 MG/2.5ML INH SOL NEB SCH (18:00)
[2019-12-08] MEDS: levoFLOXacin 500MG 100 ML IV SCH (21:13)
[2019-12-08 22:00] VITALS: BP 125/57
[2019-12-08] MEDS: IPRATROPIUM BROM 0.5 MG/2.5ML INH SOL NEB SCH (22:32)
[2019-12-08] MEDS: ALBUTEROL SULF 2.5 MG/0.5ML(0.5%) NEB SOLN NEB SCH (22:32)
[2019-12-09] VITALS (15 sets, daily range): BP systolic 113–150; BP diastolic 37–85
[2019-12-09] MEDS: ONDANSETRON HCL 4 MG/2 ML VIAL IV PRN (00:24)
[2019-12-09] MEDS: ALBUTEROL SULF 2.5 MG/0.5ML(0.5%) NEB SOLN NEB SCH ×4 (02:00→22:56)
[2019-12-09] MEDS: IPRATROPIUM BROM 0.5 MG/2.5ML INH SOL NEB SCH ×4 (02:00→22:56)
[2019-12-09 06:04] LABS: Basophils # (auto) 0 10 ^3/uL (0-0.2); Basophils % (auto) 0.8 % (0.0-2.0); Eosinophils # (auto) 0 10 ^3/uL (0-0.8); Lymphocytes # (auto) 0.2 10 ^3/uL (0.4-5.4); Neutrophils # (auto) 1.7 10 ^3/uL (1.6-8.6); White Blood Cell 2.1 10^3/uL (4.4-10.8)
[2019-12-09 06:06] LABS: Eosinophils % (auto) 1.3 % (0.0-7.0); Hematocrit 24.2 % (36.0-46.0); Hemoglobin 7.9 g/dL (12.2-16.2); Mean Corpuscular Hemoglobin 33.5 pg (28.0-32.0); Mean Corpuscular Hgb Conc. 32.8 g/dL (32.0-36.0); Mean Corpuscular Volume 102.1 fL (80.0-100.0); Monocytes # (auto) 0.2 10 ^3/uL (0-1.3); Monocytes % (auto) 7.2 % (0.0-12.0); Neutrophils % (auto) 81.7 % (37.0-80.0); Nucleated Red Blood Cells % 0.1 %; Platelet Count (auto) 202 10^3/uL (140-450); Red Blood Cells 2.37 10^6/uL (4.0-5.20); Red Cell Distribution Width 17.3 % (11.8-14.3)
[2019-12-09] MEDS: metroNIDAZOLE 500MG/100ML 100 ML IV SCH (06:08)
[2019-12-09] MEDS: PANTOPRAZOLE 40 MG TAB PO SCH (06:08)
[2019-12-09 06:22] LABS: Potassium 3.3 mmol/L (3.5-5.1)
[2019-12-09 06:24] LABS: INR 5.56 (0.9-1.15)
[2019-12-09 06:30] LABS: Albumin 2.5 g/dL (3.4-5.0); BUN/Creatinine Ratio 25.8; Bilirubin, Total 0.3 mg/dL (0.2-1.0); Calcium 6.1 mg/dL (8.5-10.1); Total Protein 6.4 g/dL (6.4-8.2)
[2019-12-09] MEDS ORDERED: D5W 5% 1,000 ML IV ONE (07:30)
[2019-12-09] MEDS: D5W/SOD CHLO 0.9% 1,000 ML IV SCH (08:55)
[2019-12-09] MEDS: DOCUSATE SOD 100 MG CAP PO SCH ×2 (09:34→22:00)
[2019-12-09] MEDS ORDERED: POTASSIUM CHLORIDE 40 MEQ, LIDOCAINE 1% (LOCAL ANESTH.) 4 ML in SODIUM CHL 0.9% 100 ML IV ONE (09:45)
[2019-12-09] MEDS ORDERED: GASTROGRAFIN 120 ML SOL ONE (10:26)
[2019-12-09] MEDS: levoFLOXacin 500MG 100 ML IV SCH (22:12)
[2019-12-10] VITALS (8 sets, daily range): BP systolic 118–156; BP diastolic 58–86
[2019-12-10] MEDS: IPRATROPIUM BROM 0.5 MG/2.5ML INH SOL NEB SCH ×6 (02:57→22:49)
[2019-12-10] MEDS: ALBUTEROL SULF 2.5 MG/0.5ML(0.5%) NEB SOLN NEB SCH ×6 (02:57→22:49)
[2019-12-10] MEDS: D5W/SOD CHLO 0.9% 1,000 ML IV SCH (03:30)
[2019-12-10] MEDS: PANTOPRAZOLE 40 MG TAB PO SCH (05:33)
[2019-12-10 06:12] LABS: Hematocrit 25.5 % (36.0-46.0); Mean Corpuscular Hemoglobin 32.2 pg (28.0-32.0); Mean Corpuscular Hgb Conc. 31.6 g/dL (32.0-36.0); Mean Corpuscular Volume 102.2 fL (80.0-100.0); Platelet Count (auto) 232 10^3/uL (140-450); Red Cell Distribution Width 17.4 % (11.8-14.3)
[2019-12-10 06:25] LABS: INR 3.39 (0.9-1.15)
[2019-12-10 07:44] LABS: White Blood Cell 1.9 10^3/uL (4.4-10.8)
[2019-12-10 07:46] LABS: Blast Cells 0; Metamyelocytes % 0; Myelocytes % 0; Promyelocytes % 0; Reactive Lymphocytes 0
[2019-12-10 07:54] LABS: Band Neutrophils % (manual) 1; Basophils % (manual) 1 (0.0-2.0); Eosinophils % (manual) 2 (0-7); Lymphocytes % (manual) 18 (10.0-50.0); Monocytes % (manual) 9 (0-12)
[2019-12-10 08:02] LABS: Albumin 2.7 g/dL (3.4-5.0); BUN/Creatinine Ratio 16.2; Calcium 6.4 mg/dL (8.5-10.1)
[2019-12-10 08:05] LABS: Bilirubin, Total 0.3 mg/dL (0.2-1.0); Total Protein 6.5 g/dL (6.4-8.2)
[2019-12-10 08:48] LABS: Potassium 2.9 mmol/L (3.5-5.1)
[2019-12-10] MEDS ORDERED: POTASSIUM CHLORIDE 80 MEQ, LIDOCAINE 1% (LOCAL ANESTH.) 6 ML in SODIUM CHL 0.9% 500 ML IV ONE (09:30)
[2019-12-10] MEDS ORDERED: ZOLPIDEM TARTRATE 5 MG TAB PO PRN (10:00)
[2019-12-10] MEDS: DOCUSATE SOD 100 MG CAP PO SCH ×2 (10:00→21:07)
[2019-12-10] MEDS: D5W/SOD CHL 0.45% 1,000 ML IV SCH ×2 (10:00→11:51)
[2019-12-10] MEDS: MAGNESIUM SULFATE 1GM/100ML 100 ML IV SCH ×2 (11:25→12:49)
[2019-12-10] MEDS: ACETAMINOPHEN 325 MG TAB PO PRN (11:51)
[2019-12-10 13:12] LABS: Hepatitis B Surface Antibody Negative
[2019-12-10 13:37] LABS: Hepatitis A Total Antibody Positive
[2019-12-10 16:30] LABS: Hepatitis B Surface Antigen Negative (Negative); Hepatitis C Antibody Negative (Negative)
[2019-12-10 16:31] LABS: Hepatitis B Core Total AB Negative
[2019-12-10] MEDS: levoFLOXacin 500MG 100 ML IV SCH (21:07)
[2019-12-11] VITALS (9 sets, daily range): BP systolic 128–142; BP diastolic 63–81
[2019-12-11] MEDS: D5W/SOD CHL 0.45% 1,000 ML IV SCH ×3 (01:43→18:48)
[2019-12-11] MEDS: ALBUTEROL SULF 2.5 MG/0.5ML(0.5%) NEB SOLN NEB SCH ×6 (03:14→22:36)
[2019-12-11] MEDS: IPRATROPIUM BROM 0.5 MG/2.5ML INH SOL NEB SCH ×6 (03:14→22:36)
[2019-12-11] MEDS: PANTOPRAZOLE 40 MG TAB PO SCH (05:16)
[2019-12-11 06:42] LABS: Basophils # (auto) 0 10 ^3/uL (0-0.2); Eosinophils # (auto) 0 10 ^3/uL (0-0.8); Nucleated Red Blood Cells % 0.2 %; White Blood Cell 2.7 10^3/uL (4.4-10.8)
[2019-12-11 06:44] LABS: Potassium 3.6 mmol/L (3.5-5.1)
[2019-12-11 06:45] LABS: INR 2.1 (0.9-1.15)
[2019-12-11 06:46] LABS: Basophils % (auto) 0.9 % (0.0-2.0); Eosinophils % (auto) 1.5 % (0.0-7.0); Lymphocytes # (auto) 0.4 10 ^3/uL (0.4-5.4); Lymphocytes % (auto) 16.3 % (10.0-50.0); Mean Corpuscular Hemoglobin 35.2 pg (28.0-32.0); Mean Corpuscular Volume 100.7 fL (80.0-100.0); Monocytes # (auto) 0.3 10 ^3/uL (0-1.3); Monocytes % (auto) 10.3 % (0.0-12.0); Neutrophils # (auto) 1.9 10 ^3/uL (1.6-8.6); Platelet Count (auto) 243 10^3/uL (140-450); Red Blood Cells 1.29 10^6/uL (4.0-5.20); Red Cell Distribution Width 16.8 % (11.8-14.3)
[2019-12-11 06:53] LABS: Albumin 2.5 g/dL (3.4-5.0); BUN/Creatinine Ratio 12.7; Calcium 6.5 mg/dL (8.5-10.1); Hemoglobin 4.5 g/dL (12.2-16.2); Magnesium 1.2 mg/dL (1.6-2.6); Total Protein 5.9 g/dL (6.4-8.2)
[2019-12-11 08:20] LABS: % Iron Saturation 33.1 % (15-50)
[2019-12-11] MEDS: MAGNESIUM SULFATE 1GM/100ML 100 ML IV SCH ×2 (09:16→10:25)
[2019-12-11] MEDS: DOCUSATE SOD 100 MG CAP PO SCH ×2 (09:16→22:27)
[2019-12-11 11:20] LABS: Hemoglobin 8.9 g/dL (12.2-16.2)
[2019-12-11 11:22] LABS: Hematocrit 27.2 % (36.0-46.0)
[2019-12-11 13:45] LABS: Ferritin 222.4 ng/mL (10-322)
[2019-12-11] MEDS: ACETAMINOPHEN 325 MG TAB PO PRN (16:28)
[2019-12-11] MEDS: levoFLOXacin 500MG 100 ML IV SCH (22:28)
[2019-12-12 02:29] VITALS: BP 128/71
[2019-12-12] MEDS: IPRATROPIUM BROM 0.5 MG/2.5ML INH SOL NEB SCH ×6 (02:29→22:16)
[2019-12-12] MEDS: ALBUTEROL SULF 2.5 MG/0.5ML(0.5%) NEB SOLN NEB SCH ×6 (02:29→22:16)
[2019-12-12 05:00] VITALS: BP 128/71
[2019-12-12] MEDS: PANTOPRAZOLE 40 MG TAB PO SCH (06:06)
[2019-12-12 06:11] LABS: Hemoglobin 7.9 g/dL (12.2-16.2); White Blood Cell 2.1 10^3/uL (4.4-10.8)
[2019-12-12 06:13] LABS: Hematocrit 23.7 % (36.0-46.0); Mean Corpuscular Hemoglobin 34.3 pg (28.0-32.0); Mean Corpuscular Hgb Conc. 33.1 g/dL (32.0-36.0); Mean Corpuscular Volume 103.5 fL (80.0-100.0); Platelet Count (auto) 196 10^3/uL (140-450); Red Blood Cells 2.29 10^6/uL (4.0-5.20); Red Cell Distribution Width 17.6 % (11.8-14.3)
[2019-12-12 06:20] LABS: Basophils % (manual) 0 (0.0-2.0); Blast Cells 0; Eosinophils % (manual) 0 (0-7); Metamyelocytes % 0; Myelocytes % 0; Promyelocytes % 0; Reactive Lymphocytes 0
[2019-12-12 06:33] LABS: Potassium 3.2 mmol/L (3.5-5.1)
[2019-12-12 06:37] LABS: INR 1.4 (0.9-1.15)
[2019-12-12 06:40] LABS: BUN/Creatinine Ratio 16.7; Bilirubin, Total 0.4 mg/dL (0.2-1.0); Calcium 6.4 mg/dL (8.5-10.1); Total Protein 5.1 g/dL (6.4-8.2)
[2019-12-12 07:21] LABS: Band Neutrophils % (manual) 1; Lymphocytes % (manual) 26 (10.0-50.0); Monocytes % (manual) 8 (0-12)
[2019-12-12] MEDS: ACETAMINOPHEN 325 MG TAB PO PRN (07:38)
[2019-12-12] MEDS: DOCUSATE SOD 100 MG CAP PO SCH ×2 (08:52→23:52)
[2019-12-12 08:54] VITALS: BP 136/73
[2019-12-12 12:35] VITALS: BP 131/77
[2019-12-12] MEDS ORDERED: POTASSIUM CHLORIDE 40 MEQ, LIDOCAINE 1% (LOCAL ANESTH.) 4 ML in SODIUM CHL 0.9% 100 ML IV ONE (13:15)
[2019-12-12] MEDS: D5W/SOD CHL 0.45% 1,000 ML IV SCH (13:28)
[2019-12-12] MEDS: MAGNESIUM SULFATE 1GM/100ML 100 ML IV SCH ×2 (13:54→15:05)
[2019-12-12 16:48] VITALS: BP 119/69
[2019-12-12 21:29] VITALS: BP 127/68
[2019-12-12] MEDS: levoFLOXacin 500MG 100 ML IV SCH (23:53)
[2019-12-13] MEDS: IPRATROPIUM BROM 0.5 MG/2.5ML INH SOL NEB SCH ×6 (02:11→22:00)
[2019-12-13] MEDS: ALBUTEROL SULF 2.5 MG/0.5ML(0.5%) NEB SOLN NEB SCH ×6 (02:11→22:00)
[2019-12-13 05:26] VITALS: BP 129/69
[2019-12-13] MEDS: PANTOPRAZOLE 40 MG TAB PO SCH (06:00)
[2019-12-13 06:20] LABS: Basophils # (auto) 0 10 ^3/uL (0-0.2); Basophils % (auto) 0.4 % (0.0-2.0); Eosinophils # (auto) 0 10 ^3/uL (0-0.8); Eosinophils % (auto) 1.1 % (0.0-7.0); Hematocrit 25.4 % (36.0-46.0); Hemoglobin 8.3 g/dL (12.2-16.2); Lymphocytes # (auto) 0.5 10 ^3/uL (0.4-5.4); Lymphocytes % (auto) 15.1 % (10.0-50.0); Mean Corpuscular Hgb Conc. 32.6 g/dL (32.0-36.0); Mean Corpuscular Volume 104.3 fL (80.0-100.0); Monocytes # (auto) 0.4 10 ^3/uL (0-1.3); Monocytes % (auto) 12.7 % (0.0-12.0); Neutrophils # (auto) 2.3 10 ^3/uL (1.6-8.6); Neutrophils % (auto) 70.7 % (37.0-80.0); Nucleated Red Blood Cells % 0.1 %; Platelet Count (auto) 176 10^3/uL (140-450); Red Blood Cells 2.43 10^6/uL (4.0-5.20); White Blood Cell 3.3 10^3/uL (4.4-10.8)
[2019-12-13 06:50] LABS: Potassium 4.3 mmol/L (3.5-5.1)
[2019-12-13 07:18] LABS: Albumin 2.5 g/dL (3.4-5.0); BUN/Creatinine Ratio 14.8; Bilirubin, Total 0.5 mg/dL (0.2-1.0); Calcium 8.9 mg/dL (8.5-10.1); Total Protein 6.2 g/dL (6.4-8.2)
[2019-12-13 08:49] VITALS: BP 120/70
[2019-12-13] MEDS: DOCUSATE SOD 100 MG CAP PO SCH ×2 (09:05→21:15)
[2019-12-13 12:21] LABS: Urine Bacteria FEW /hpf (None Seen); Urine Blood Negative /uL (Negative); Urine Specific Gravity 1.015 (1.001-1.035); Urine WBC 4 /hpf (0 - 5)
[2019-12-13 13:00] VITALS: BP 115/60
[2019-12-13] MEDS: ACETAMINOPHEN 325 MG TAB PO PRN (13:00)
[2019-12-13] MEDS: D5W/SOD CHL 0.45% 1,000 ML IV SCH ×2 (13:15→14:52)
[2019-12-13 17:00] VITALS: BP 127/75
[2019-12-13] MEDS: levoFLOXacin 500MG 100 ML IV SCH (21:15)
[2019-12-13 22:00] VITALS: BP 131/69
[2019-12-14] MEDS: ALBUTEROL SULF 2.5 MG/0.5ML(0.5%) NEB SOLN NEB SCH ×7 (02:39→22:39)
[2019-12-14] MEDS: IPRATROPIUM BROM 0.5 MG/2.5ML INH SOL NEB SCH ×7 (02:39→22:39)
[2019-12-14 05:00] VITALS: BP 148/74
[2019-12-14] MEDS: PANTOPRAZOLE 40 MG TAB PO SCH (05:00)
[2019-12-14 06:34] LABS: Potassium 4.8 mmol/L (3.5-5.1)
[2019-12-14 06:36] LABS: INR 1.13 (0.9-1.15)
[2019-12-14 06:41] LABS: Basophils # (auto) 0 10 ^3/uL (0-0.2); Basophils % (auto) 0.5 % (0.0-2.0); Eosinophils # (auto) 0 10 ^3/uL (0-0.8); Eosinophils % (auto) 1.5 % (0.0-7.0); Hematocrit 26.3 % (36.0-46.0); Lymphocytes # (auto) 0.4 10 ^3/uL (0.4-5.4); Lymphocytes % (auto) 12.7 % (10.0-50.0); Mean Corpuscular Hemoglobin 33.2 pg (28.0-32.0); Mean Corpuscular Hgb Conc. 30.4 g/dL (32.0-36.0); Mean Corpuscular Volume 109.1 fL (80.0-100.0); Monocytes # (auto) 0.5 10 ^3/uL (0-1.3); Monocytes % (auto) 14.6 % (0.0-12.0); Neutrophils # (auto) 2.3 10 ^3/uL (1.6-8.6); Neutrophils % (auto) 70.7 % (37.0-80.0); Nucleated Red Blood Cells % 0.1 %; Platelet Count (auto) 158 10^3/uL (140-450); Red Blood Cells 2.41 10^6/uL (4.0-5.20); White Blood Cell 3.3 10^3/uL (4.4-10.8)
[2019-12-14 06:45] LABS: Albumin 2.3 g/dL (3.4-5.0); BUN/Creatinine Ratio 15.6; Bilirubin, Total 0.4 mg/dL (0.2-1.0); Calcium 8.7 mg/dL (8.5-10.1); Total Protein 5.4 g/dL (6.4-8.2)
[2019-12-14 09:00] VITALS: BP 135/74
[2019-12-14] MEDS: DOCUSATE SOD 100 MG CAP PO SCH ×2 (09:33→21:06)
[2019-12-14 13:00] VITALS: BP 126/68
[2019-12-14] MEDS ORDERED: IOHEXOL 300 MG/ML 100ML BOTTLE IJ ONE (13:55)
[2019-12-14] MEDS ORDERED: fentaNYL CITRATE 100 MCG/2 ML VL ONE (14:37)
[2019-12-14 17:00] VITALS: BP 147/75
[2019-12-14] MEDS: HYDROmorphone HCL 2 MG/ML VL IV PRN (18:06)
[2019-12-14] MEDS: ONDANSETRON HCL 4 MG/2 ML VIAL IV PRN (21:19)
[2019-12-14] MEDS: levoFLOXacin 500MG 100 ML IV SCH (21:32)
[2019-12-14 21:49] VITALS: BP 147/75
[2019-12-14 22:00] VITALS: BP 146/72
[2019-12-15] MEDS: IPRATROPIUM BROM 0.5 MG/2.5ML INH SOL NEB SCH ×6 (02:00→22:39)
[2019-12-15] MEDS: ALBUTEROL SULF 2.5 MG/0.5ML(0.5%) NEB SOLN NEB SCH ×6 (02:00→22:39)
[2019-12-15 05:00] VITALS: BP 142/71
[2019-12-15] MEDS: PANTOPRAZOLE 40 MG TAB PO SCH (05:59)
[2019-12-15 09:00] VITALS: BP 117/60
[2019-12-15] MEDS: DOCUSATE SOD 100 MG CAP PO SCH ×2 (09:46→21:37)
[2019-12-15 11:36] LABS: Basophils # (auto) 0 10 ^3/uL (0-0.2); Basophils % (auto) 0.4 % (0.0-2.0); Eosinophils # (auto) 0 10 ^3/uL (0-0.8); Eosinophils % (auto) 0.7 % (0.0-7.0); Hemoglobin 8.2 g/dL (12.2-16.2); Monocytes # (auto) 0.8 10 ^3/uL (0-1.3); Neutrophils # (auto) 3.6 10 ^3/uL (1.6-8.6)
[2019-12-15 11:38] LABS: Hematocrit 23.9 % (36.0-46.0); Lymphocytes # (auto) 0.4 10 ^3/uL (0.4-5.4); Lymphocytes % (auto) 9.2 % (10.0-50.0); Mean Corpuscular Hemoglobin 34.9 pg (28.0-32.0); Mean Corpuscular Hgb Conc. 34.1 g/dL (32.0-36.0); Mean Corpuscular Volume 102.3 fL (80.0-100.0); Monocytes % (auto) 15.9 % (0.0-12.0); Neutrophils % (auto) 73.8 % (37.0-80.0); Nucleated Red Blood Cells % 0.3 %; Platelet Count (auto) 162 10^3/uL (140-450); Red Blood Cells 2.34 10^6/uL (4.0-5.20); Red Cell Distribution Width 17.4 % (11.8-14.3); White Blood Cell 4.8 10^3/uL (4.4-10.8)
[2019-12-15 11:50] LABS: Albumin 2.2 g/dL (3.4-5.0); Calcium 8.9 mg/dL (8.5-10.1); Potassium 3.7 mmol/L (3.5-5.1)
[2019-12-15 11:54] LABS: BUN/Creatinine Ratio 13.4; Bilirubin, Total 0.4 mg/dL (0.2-1.0)
[2019-12-15 12:37] VITALS: BP 117/63
[2019-12-15 16:46] VITALS: BP 124/73
[2019-12-15] MEDS: D5W/SOD CHL 0.45% 1,000 ML IV SCH (17:45)
[2019-12-15] MEDS: levoFLOXacin 500MG 100 ML IV SCH (21:23)
[2019-12-15 21:45] VITALS: BP 115/59
[2019-12-16] MEDS: ALBUTEROL SULF 2.5 MG/0.5ML(0.5%) NEB SOLN NEB SCH ×3 (02:32→10:46)
[2019-12-16] MEDS: IPRATROPIUM BROM 0.5 MG/2.5ML INH SOL NEB SCH ×3 (02:32→10:45)
[2019-12-16 05:28] VITALS: BP 146/69
[2019-12-16] MEDS: PANTOPRAZOLE 40 MG TAB PO SCH (06:41)
[2019-12-16 07:03] LABS: Hematocrit 25.4 % (36.0-46.0); Hemoglobin 8.4 g/dL (12.2-16.2); White Blood Cell 3.8 10^3/uL (4.4-10.8)
[2019-12-16 07:04] LABS: Mean Corpuscular Hemoglobin 34.9 pg (28.0-32.0); Platelet Count (auto) 167 10^3/uL (140-450); Red Cell Distribution Width 18.5 % (11.8-14.3)
[2019-12-16 07:20] LABS: Albumin 2.1 g/dL (3.4-5.0); Calcium 8.8 mg/dL (8.5-10.1); Potassium 3.9 mmol/L (3.5-5.1)
[2019-12-16 07:21] LABS: Basophils % (manual) 0 (0.0-2.0); Blast Cells 0; Myelocytes % 0; Promyelocytes % 0; Reactive Lymphocytes 0
[2019-12-16 07:24] LABS: BUN/Creatinine Ratio 13.6; Bilirubin, Total 0.3 mg/dL (0.2-1.0); Total Protein 6.1 g/dL (6.4-8.2)
[2019-12-16 08:23] VITALS: BP 143/61
[2019-12-16 08:55] LABS: Band Neutrophils % (manual) 9; Eosinophils % (manual) 1 (0-7); Lymphocytes % (manual) 22 (10.0-50.0); Metamyelocytes % 3; Monocytes % (manual) 13 (0-12)
[2019-12-16] MEDS: DOCUSATE SOD 100 MG CAP PO SCH (10:00)
[2019-12-16 12:48] VITALS: BP 100/65
[2019-12-16] MEDS: D5W/SOD CHL 0.45% 1,000 ML IV SCH (13:15)
== END 2019-12-16 14:00 | disposition home or self-care (01) | DRG 444 ==
LOC: ER 14:03 → TELE 14:04 → TELE-WESTW 23:41
PROVIDERS: ADMIT Nurse Practitioner; ATTEND Internal Medicine
PROC: 30233K1 Transfusion of Nonautologous Frozen Plasma into Peripheral Vein, Percutaneous Approach (ICD-10-PCS; 2019-12-09)
PROC: BF141ZZ Fluoroscopy of Gallbladder, Bile Ducts and Pancreatic Ducts using Low Osmolar Contrast (ICD-10-PCS; 2019-12-14)
PROC: 0FBC8ZX Excision of Ampulla of Vater, Via Natural or Artificial Opening Endoscopic, Diagnostic (ICD-10-PCS; 2019-12-14)
PROC: 0FC98ZZ Extirpation of Matter from Common Bile Duct, Via Natural or Artificial Opening Endoscopic (ICD-10-PCS; principal; 2019-12-14 14:23)
DX: K80.50 Calculus of bile duct without cholangitis or cholecystitis without obstruction (principal); E43 Unspecified severe protein-calorie malnutrition; N39.0 Urinary tract infection, site not specified; K57.32 Diverticulitis of large intestine without perforation or abscess without bleeding; B44.1 Other pulmonary aspergillosis; I48.20 Chronic atrial fibrillation, unspecified; I13.0 Hypertensive heart and chronic kidney disease with heart failure and stage 1 through stage 4 chronic kidney disease, or unspecified chronic kidney disease; D68.8 Other specified coagulation defects; D61.818 Other pancytopenia; Z20.828 Contact with and (suspected) exposure to other viral communicable diseases; I50.9 Heart failure, unspecified; Z87.891 Personal history of nicotine dependence; Z86.711 Personal history of pulmonary embolism; Z86.718 Personal history of other venous thrombosis and embolism; D53.9 Nutritional anemia, unspecified; D72.819 Decreased white blood cell count, unspecified; T45.515A Adverse effect of anticoagulants, initial encounter; E03.9 Hypothyroidism, unspecified; E83.42 Hypomagnesemia; N18.9 Chronic kidney disease, unspecified; J43.9 Emphysema, unspecified; M06.9 Rheumatoid arthritis, unspecified; Z80.9 Family history of malignant neoplasm, unspecified; Z82.3 Family history of stroke; Z82.49 Family history of ischemic heart disease and other diseases of the circulatory system; Z83.3 Family history of diabetes mellitus; Z90.49 Acquired absence of other specified parts of digestive tract; G47.30 Sleep apnea, unspecified; M19.90 Unspecified osteoarthritis, unspecified site; K21.9 Gastro-esophageal reflux disease without esophagitis; Z88.0 Allergy status to penicillin; Z88.8 Allergy status to other drugs, medicaments and biological substances; Z90.89 Acquired absence of other organs; I25.119 Atherosclerotic heart disease of native coronary artery with unspecified angina pectoris
CPT/HCPCS: 36415; 71045; 74018; 74176; 74181; 74250; 76001; 76775; 80053; 81001; 82105; 82270; 82607; 82728; 82746; 83010; 83540; 83550; 83615; 83690; 83735; 85007; 85014; 85018; 85025; 85027; 85045; 85610; 86301; 86704; 86706; 86708; 86803; 86850; 86880; 86900; 86901; 86920; 87086; 87340; 87426; 93005; 94640; 94660; 97110; 97116; 97163; 97530; G0378; J1956; J2001; J2405; J3490

== ENCOUNTER 2020-02-19 14:05 | Inpatient (IN) | payer OTHER, MEDICAID ==
[~2020-02-19] VITALS: Ht 157.5 cm; Wt 62.6 kg
[2020-02-19] MEDS ORDERED: DexAMETHasone SOD PHOS 10MG/1ML VIAL INJ IV ONE (14:30)
[2020-02-19] MEDS ORDERED: ACETAMINOPHEN 325 MG TAB PO ONE (17:00)
[2020-02-19 17:17] LABS: Basophils # (auto) 0 10 ^3/uL (0-0.2); Basophils % (auto) 0.6 % (0.0-2.0); Eosinophils # (auto) 0 10 ^3/uL (0-0.8); Hematocrit 26.2 % (36.0-46.0); Hemoglobin 8.4 g/dL (12.2-16.2); Lymphocytes # (auto) 0.2 10 ^3/uL (0.4-5.4); Lymphocytes % (auto) 8.3 % (10.0-50.0); Mean Corpuscular Hemoglobin 33.3 pg (28.0-32.0); Mean Corpuscular Hgb Conc. 32.2 g/dL (32.0-36.0); Mean Corpuscular Volume 103.7 fL (80.0-100.0); Monocytes # (auto) 0.2 10 ^3/uL (0-1.3); Monocytes % (auto) 7.2 % (0.0-12.0); Neutrophils % (auto) 83.9 % (37.0-80.0); Platelet Count (auto) 228 10^3/uL (140-450); Red Blood Cells 2.53 10^6/uL (4.0-5.20); Red Cell Distribution Width 17.8 % (11.8-14.3); White Blood Cell 2.4 10^3/uL (4.4-10.8)
[2020-02-19 17:36] LABS: Albumin 2.8 g/dL (3.4-5.0)
[2020-02-19 17:45] LABS: BUN/Creatinine Ratio 19.9; Bilirubin, Total 0.3 mg/dL (0.2-1.0); CRP High Sensitivity 7.28 mg/dL (< 0.3); Partial Thromboplastin Time 63.5 sec (23.0-31.2); Total Protein 7.6 g/dL (6.4-8.2)
[2020-02-19 17:49] LABS: INR 5.94 (0.9-1.15)
[2020-02-19 18:00] LABS: Calcium 5.2 mg/dL (8.5-10.1)
[2020-02-19] MEDS ORDERED: CALCIUM GLUC 4.65meq/50ml D5AE 50 ML IV ONE (18:15)
[2020-02-19 18:43] LABS: Urine Bacteria FEW /hpf (None Seen); Urine Blood Negative /uL (Negative); Urine Hyaline Cast FEW /lpf (0 - 2); Urine Mucus FEW (None Seen); Urine Specific Gravity 1.015 (1.001-1.035); Urine WBC 1 /hpf (0 - 5)
[2020-02-19] MEDS ORDERED: ACETAMINOPHEN 500 MG TAB PO PRN (22:30)
[2020-02-19] MEDS ORDERED: ALBUMIN 25% 100 ML IV ONE (22:30)
[2020-02-19] MEDS ORDERED: MORPHINE SULF INJ 2 MG/ML SYRINGE 1ML IV PRN (22:30)
[2020-02-19] MEDS ORDERED: ONDANSETRON HCL 4 MG/2 ML VIAL IV PRN (22:30)
[2020-02-19] MEDS ORDERED: DOCUSATE SOD 100 MG CAP PO PRN (22:30)
[2020-02-19] MEDS ORDERED: NITROGLYCERIN 0.4 MG SL TAB SL PRN (22:30)
[2020-02-19] MEDS ORDERED: ALBUMIN 25% 50 ML IV ONE (22:45)
[2020-02-19] MEDS: DOXYCYCLINE 100MG/250ML 250 ML IV SCH ×2 (22:59→23:51)
--- NOTE | 2020-02-19 23:50 | NUR ---
Telemetry admit from ER RONALD LUCERO admitted to Telemetry unit after SBAR received. Patient oriented to Bear Alaniz primary RN, unit, room, bed, and unit policies regarding patient care and visiting hours. Patient now on continuous telemetry monitoring, tele box # 28 and telemetry reading on arrival to unit is sinus tachycardia at 103. Patient placed on bedside oxygen, weighed by bedscale and encouraged to call if they need something. All questions and concerns addressed, patient verbalized understanding.
--- NOTE | 2020-02-19 23:59 | NUR ---
Received critical value for Mg 0.3, INR 7.31 and PTT 79, paged hospitalist. Awaiting for call back.
[2020-02-20] VITALS (9 sets, daily range): BP systolic 93–127; BP diastolic 45–71
[2020-02-20] LABS: INR 7.31 (0.9-1.15)
--- NOTE | 2020-02-20 01:55 | NUR ---
No call from hospitalist, 2nd page done. awaiting for call back.
[2020-02-20] MEDS: SODIUM CHLOR 0.9% PF (SALINE LOCK) 10ML VIAL/SYR IV SCH ×3 (05:53→23:11)
--- NOTE | 2020-02-20 06:56 | NUR ---
Paged hospitalist again for critical lab values. Awaiting for call back.
[2020-02-20] MEDS ORDERED: LEVOTHYROXINE SODIUM 25 MCG TAB PO SCH (07:00)
[2020-02-20] MEDS: BUDESONIDE (INHALATION) 180 MCG IH IN SCH ×2 (07:10→22:06)
[2020-02-20] MEDS: ALBUTEROL SULF HFA 90MCG INH 200DOSE IN SCH ×3 (07:10→22:07)
--- NOTE | 2020-02-20 07:10 | NUR ---
Respiratory note: PT SEEN, NO MDI'S AT BEDSIDE. NO RESP DISTRESS NOTED HR 83, RR18, SPO2 97% ON 2L N/C. WILL CALL PHARMACY
[2020-02-20 07:52] LABS: Basophils # (auto) 0 10 ^3/uL (0-0.2); Eosinophils # (auto) 0 10 ^3/uL (0-0.8); Hemoglobin 7.1 g/dL (12.2-16.2); Lymphocytes # (auto) 0.2 10 ^3/uL (0.4-5.4); Monocytes # (auto) 0.1 10 ^3/uL (0-1.3); Red Blood Cells 2.12 10^6/uL (4.0-5.20)
[2020-02-20 07:54] LABS: Basophils % (auto) 0.1 % (0.0-2.0); Hematocrit 21.7 % (36.0-46.0); Lymphocytes % (auto) 8.1 % (10.0-50.0); Mean Corpuscular Hemoglobin 33.7 pg (28.0-32.0); Mean Corpuscular Hgb Conc. 32.9 g/dL (32.0-36.0); Mean Corpuscular Volume 102.3 fL (80.0-100.0); Monocytes % (auto) 3.4 % (0.0-12.0); Neutrophils # (auto) 1.7 10 ^3/uL (1.6-8.6); Neutrophils % (auto) 88.4 % (37.0-80.0); Nucleated Red Blood Cells % 0.2 %; Platelet Count (auto) 167 10^3/uL (140-450); Red Cell Distribution Width 17.4 % (11.8-14.3)
--- NOTE | 2020-02-20 08:00 | NUR ---
Opening Shift Note Assumed care of patient, patient comfortably resting, breath sounds even and unlabored, patient on 2L NC. No S/S of distress/SOB or pain. Bed at lowest locked position and call light within reach. Will continue to monitor for changes Q1hr and PRN.
[2020-02-20 08:08] LABS: White Blood Cell 1.9 10^3/uL (4.4-10.8)
[2020-02-20 08:16] LABS: Albumin 2.6 g/dL (3.4-5.0); BUN/Creatinine Ratio 28.1; Potassium 3.3 mmol/L (3.5-5.1); Total Protein 6.6 g/dL (6.4-8.2)
--- NOTE | 2020-02-20 08:16 | NUR ---
CRITICAL LAB VALUES CRITICAL LAB VALUE OF WBC AT 1.9. PAGED HOSPITALIST, AWAITING CALL BACK.
[2020-02-20 08:24] LABS: Bilirubin, Total 0.3 mg/dL (0.2-1.0)
--- NOTE | 2020-02-20 08:25 | NUR ---
BM patient had a diarrhea episode. Assisted with cleaning and changing bed sheets with the help of STEPHANIE Traore. .
[2020-02-20 08:28] LABS: Calcium 5.2 mg/dL (8.5-10.1)
--- NOTE | 2020-02-20 08:30 | NUR ---
Dr. Espitia informed/aware of critical lab values in WBC and coagulation lab values. no new orders.
[2020-02-20 09:12] LABS: INR > 8.0 (0.9-1.15)
[2020-02-20 09:13] LABS: Partial Thromboplastin Time 93.7 sec (23.0-31.2)
[2020-02-20] MEDS: ZINC SULFATE 220mg CAP or TAB PO SCH (09:54)
[2020-02-20] MEDS: DexAMETHasone SOD PHOS 10MG/1ML VIAL INJ IV SCH (09:54)
[2020-02-20] MEDS: MULTIPLE VITAMIN TAB PO SCH (09:54)
[2020-02-20] MEDS: CHOLECALCIFEROL (VITD3) 2,000 UNIT CAP PO SCH (09:55)
[2020-02-20] MEDS: ASCORBIC ACID 1,000 MG TAB PO SCH (09:55)
[2020-02-20] MEDS ORDERED: FAMOTIDINE 20 MG TAB PO SCH (10:00)
--- NOTE | 2020-02-20 11:30 | NUR ---
paged Dr. Schreiber, awaiting call back.
[2020-02-20] MEDS ORDERED: IPRATROPIUM BROM 0.5 MG/2.5ML INH SOL NEB PRN (12:15)
[2020-02-20] MEDS ORDERED: ALBUTEROL SULF 2.5 MG/0.5ML(0.5%) NEB SOLN NEB PRN (12:15)
--- NOTE | 2020-02-20 12:15 | NUR ---
MD Rounds Dr. Schreiber at bedside.
[2020-02-20] MEDS: traMADol HCL 50 MG TAB PO PRN ×2 (12:49→20:53)
[2020-02-20] MEDS ORDERED: CALCIUM CHL 100MG/ML 1,000 MG in D5W 5% 100 ML IV ONE (13:30)
[2020-02-20] MEDS ORDERED: PHYTONADIONE(VitK) ORAL Susp 10mg/10ml(1mg/ml) PO ONE (13:30)
[2020-02-20] MEDS ORDERED: PANTOPRAZOLE 40 MG TAB PO ONE (13:45)
[2020-02-20] MEDS ORDERED: POTASSIUM CHL 20 Meq TABLET PO ONE (14:00)
[2020-02-20] MEDS: MAGNESIUM SULFATE 1GM/100ML 100 ML IV SCH ×4 (14:03→22:08)
--- NOTE | 2020-02-20 14:46 | NUR ---
Nutrition Assessment/Consult Notes Please refer to link for full assessment notes. Est Energy needs: 8417-8606 kcals (20-23 kcal/kgBW) Est Protein needs: 61-67 gms/day (1.0-1.1 gm/kgBW) Will continue to monitor and reassess prn. Addendum: 02/20/20 at [address] Amended: Links added.
[2020-02-20 17:13] LABS: Basophils # (auto) 0 10 ^3/uL (0-0.2); Basophils % (auto) 0.1 % (0.0-2.0); Eosinophils # (auto) 0 10 ^3/uL (0-0.8); Eosinophils % (auto) 0.1 % (0.0-7.0); Hematocrit 24.7 % (36.0-46.0); Hemoglobin 8.2 g/dL (12.2-16.2); Lymphocytes # (auto) 0.2 10 ^3/uL (0.4-5.4); Lymphocytes % (auto) 5.1 % (10.0-50.0); Mean Corpuscular Hemoglobin 33.8 pg (28.0-32.0); Mean Corpuscular Hgb Conc. 33.1 g/dL (32.0-36.0); Mean Corpuscular Volume 102.2 fL (80.0-100.0); Monocytes # (auto) 0.1 10 ^3/uL (0-1.3); Monocytes % (auto) 3.1 % (0.0-12.0); Neutrophils # (auto) 3.8 10 ^3/uL (1.6-8.6); Neutrophils % (auto) 91.6 % (37.0-80.0); Platelet Count (auto) 183 10^3/uL (140-450); Red Blood Cells 2.41 10^6/uL (4.0-5.20); Red Cell Distribution Width 17.8 % (11.8-14.3); White Blood Cell 4.2 10^3/uL (4.4-10.8)
[2020-02-20 17:26] LABS: % Iron Saturation 22.3 % (15-50)
--- NOTE | 2020-02-20 19:14 | NUR ---
closing shift note Patient is comfortably resting in bed, on 2 L NC, saturating at 95%. No s/s of distress/sob noted/stated. Bed at lowest locked position and call light within reach. Will endorse care to NOC RN.
--- NOTE | 2020-02-20 19:42 | NUR ---
Opening Shift Note Received report and assumed care of patient. Patient is awake and alert. No signs or symptoms of distress noted. Instructed patient on plan of care and to call for assistance as needed. Will continue to monitor.
--- NOTE | 2020-02-20 20:53 | NUR ---
Pain Medication Administration Patient complaining of abdominal pain 4/10. Will administer pain medication per MD order. Will reassess pain level and will continue to monitor.
--- NOTE | 2020-02-20 21:53 | NUR ---
Pain Level Reassessment Patient's pain level reassessed to be 0/10. No signs or symptoms of distress noted. Will continue to monitor.
[2020-02-20] MEDS ORDERED: MAGNESIUM SULFATE 1GM/100ML 100 ML IV ONE (21:57)
[2020-02-20] MEDS ORDERED: BUDESONIDE (INHALATION) 0.5 MG/2 ML NEB NEB SCH (22:00)
[2020-02-20] MEDS: PANTOPRAZOLE 40 MG TAB PO SCH (22:09)
[2020-02-20] MEDS: MAGNESIUM OXIDE 400 MG TAB PO SCH (22:09)
[2020-02-20] MEDS: DOXYCYCLINE 100MG/250ML 250 ML IV SCH (23:11)
[2020-02-21] VITALS (10 sets, daily range): BP systolic 108–131; BP diastolic 57–70
[2020-02-21] MEDS: SODIUM CHLOR 0.9% PF (SALINE LOCK) 10ML VIAL/SYR IV SCH ×3 (05:39→22:24)
[2020-02-21] MEDS: traMADol HCL 50 MG TAB PO PRN ×2 (05:39→22:25)
--- NOTE | 2020-02-21 05:39 | NUR ---
Pain Medication Administration Patient complaining of headache pain 5/10. Will administer pain medication per MD order. Will reassess pain level and will continue to monitor.
--- NOTE | 2020-02-21 06:39 | NUR ---
Pain Level Reassessment Patient's pain level reassessed to be 0/10. No signs or symptoms of distress noted. Will continue to monitor.
[2020-02-21 07:01] LABS: Basophils # (auto) 0 10 ^3/uL (0-0.2); Basophils % (auto) 0.1 % (0.0-2.0); Eosinophils # (auto) 0 10 ^3/uL (0-0.8); Hematocrit 19.9 % (36.0-46.0); Lymphocytes # (auto) 0.1 10 ^3/uL (0.4-5.4); Mean Corpuscular Volume 102.1 fL (80.0-100.0); Monocytes # (auto) 0.3 10 ^3/uL (0-1.3); Neutrophils # (auto) 6.9 10 ^3/uL (1.6-8.6); Nucleated Red Blood Cells % 0.1 %; Red Blood Cells 1.95 10^6/uL (4.0-5.20); White Blood Cell 7.3 10^3/uL (4.4-10.8)
[2020-02-21 07:03] LABS: Lymphocytes % (auto) 1.8 % (10.0-50.0); Mean Corpuscular Hemoglobin 35.6 pg (28.0-32.0); Mean Corpuscular Hgb Conc. 34.8 g/dL (32.0-36.0); Monocytes % (auto) 4.3 % (0.0-12.0); Neutrophils % (auto) 93.8 % (37.0-80.0); Platelet Count (auto) 180 10^3/uL (140-450); Red Cell Distribution Width 17.4 % (11.8-14.3)
[2020-02-21 07:09] LABS: Hemoglobin 6.9 g/dL (12.2-16.2)
[2020-02-21] MEDS: BUDESONIDE (INHALATION) 180 MCG IH IN SCH ×2 (07:13→22:45)
--- NOTE | 2020-02-21 07:22 | NUR ---
Critical Lab Value Patient's hemoglobin 6.9. Paged Hospitalist. Received new order to transfuse 1 unit of packed red blood cells and to draw CBC after blood transfusion. Orders read back and verified. Will carry out.
[2020-02-21 07:30] LABS: Calcium 6.5 mg/dL (8.5-10.1); Potassium 4.1 mmol/L (3.5-5.1)
[2020-02-21 07:41] LABS: Albumin 2.4 g/dL (3.4-5.0); BUN/Creatinine Ratio 32.9; Bilirubin, Total 0.3 mg/dL (0.2-1.0); CRP High Sensitivity 5.91 mg/dL (< 0.3); Magnesium 2.1 mg/dL (1.6-2.6); Total Protein 6.6 g/dL (6.4-8.2)
[2020-02-21] MEDS ORDERED: CALCIUM CHL 100MG/ML 1,000 MG in D5W 5% 100 ML IV ONE (09:15)
--- NOTE | 2020-02-21 09:16 | NUR ---
DR. GRIJALVA AT BEDSIDE.
[2020-02-21] MEDS: DexAMETHasone SOD PHOS 10MG/1ML VIAL INJ IV SCH (09:47)
[2020-02-21] MEDS: DOXYCYCLINE 100MG/250ML 250 ML IV SCH ×2 (09:48→22:24)
[2020-02-21] MEDS: ASCORBIC ACID 1,000 MG TAB PO SCH (09:49)
[2020-02-21] MEDS: PANTOPRAZOLE 40 MG TAB PO SCH ×2 (09:49→22:25)
[2020-02-21] MEDS: ZINC SULFATE 220mg CAP or TAB PO SCH (09:49)
[2020-02-21] MEDS: MULTIPLE VITAMIN TAB PO SCH (09:49)
[2020-02-21] MEDS: MAGNESIUM OXIDE 400 MG TAB PO SCH ×2 (09:49→22:25)
[2020-02-21] MEDS: CHOLECALCIFEROL (VITD3) 2,000 UNIT CAP PO SCH (09:50)
[2020-02-21 11:32] LABS: Basophils # (auto) 0 10 ^3/uL (0-0.2); Eosinophils # (auto) 0 10 ^3/uL (0-0.8); Hemoglobin 7.3 g/dL (12.2-16.2); Lymphocytes # (auto) 0.1 10 ^3/uL (0.4-5.4); Mean Corpuscular Volume 100.5 fL (80.0-100.0); Monocytes # (auto) 0.3 10 ^3/uL (0-1.3); Monocytes % (auto) 4.2 % (0.0-12.0); Nucleated Red Blood Cells % 0.1 %
[2020-02-21 11:33] LABS: Hematocrit 21.6 % (36.0-46.0); Lymphocytes % (auto) 1.7 % (10.0-50.0); Mean Corpuscular Hemoglobin 33.9 pg (28.0-32.0); Mean Corpuscular Hgb Conc. 33.7 g/dL (32.0-36.0); Neutrophils # (auto) 6.3 10 ^3/uL (1.6-8.6); Neutrophils % (auto) 94.1 % (37.0-80.0); Platelet Count (auto) 182 10^3/uL (140-450); Red Blood Cells 2.15 10^6/uL (4.0-5.20); Red Cell Distribution Width 17.2 % (11.8-14.3); White Blood Cell 6.7 10^3/uL (4.4-10.8)
[2020-02-21 12:05] LABS: INR 1.16 (0.9-1.15); Partial Thromboplastin Time 36.4 sec (23.0-31.2)
--- NOTE | 2020-02-21 12:38 | NUR ---
URINE SAMPLE URINE SPECIMEN COLLECTED AND SENT TO LAB VIA [employer] SYSTEM
--- NOTE | 2020-02-21 12:54 | NUR ---
STOOL SAMPLE COLLECTED AND SENT TO LAB VIA [employer].
[2020-02-21] MEDS: ALBUTEROL SULF HFA 90MCG INH 200DOSE IN SCH ×2 (13:44→22:45)
--- NOTE | 2020-02-21 17:18 | NUR ---
Blood transfusion Blood transfusion started. VS: BP 120/69, HR 91, RR 19, Spo2 99% T 99.6. No s/s of distress/sob noted/stated.
--- NOTE | 2020-02-21 20:35 | NUR ---
Blood Transfusion Blood transfusion completed. No s/s of distress/sob noted and or stated.
[2020-02-22 05:00] VITALS: BP 109/68
[2020-02-22] MEDS: BUDESONIDE (INHALATION) 180 MCG IH IN SCH ×2 (06:36→22:00)
[2020-02-22] MEDS: ALBUTEROL SULF HFA 90MCG INH 200DOSE IN SCH ×3 (06:36→22:00)
[2020-02-22 08:00] VITALS: BP_SYST 114; BP_SYST 131; BP_DIAS 55; BP_DIAS 59
[2020-02-22 09:45] LABS: Free T4 (Free Thyroxine) 1.3 ng/dL (0.89-1.76)
[2020-02-22 09:46] LABS: Folate (Folic Acid) 15.18 ng/mL (5.38-24)
[2020-02-22] MEDS: DOXYCYCLINE 100MG/250ML 250 ML IV SCH ×2 (09:51→21:17)
[2020-02-22] MEDS: ASCORBIC ACID 1,000 MG TAB PO SCH (09:53)
[2020-02-22] MEDS: MAGNESIUM OXIDE 400 MG TAB PO SCH ×2 (09:53→21:17)
[2020-02-22] MEDS: MULTIPLE VITAMIN TAB PO SCH (09:54)
[2020-02-22] MEDS: CHOLECALCIFEROL (VITD3) 2,000 UNIT CAP PO SCH (09:54)
[2020-02-22] MEDS: ZINC SULFATE 220mg CAP or TAB PO SCH (09:54)
[2020-02-22] MEDS: DexAMETHasone SOD PHOS 10MG/1ML VIAL INJ IV SCH (09:56)
[2020-02-22] MEDS: PANTOPRAZOLE 40 MG TAB PO SCH ×2 (10:00→21:17)
[2020-02-22 11:07] LABS: Basophils # (auto) 0 10 ^3/uL (0-0.2); Eosinophils # (auto) 0 10 ^3/uL (0-0.8); Hematocrit 26.9 % (36.0-46.0); Lymphocytes # (auto) 0.1 10 ^3/uL (0.4-5.4); Lymphocytes % (auto) 2.2 % (10.0-50.0); Mean Corpuscular Hemoglobin 32.9 pg (28.0-32.0); Mean Corpuscular Hgb Conc. 33.6 g/dL (32.0-36.0); Mean Corpuscular Volume 98.1 fL (80.0-100.0); Monocytes # (auto) 0.4 10 ^3/uL (0-1.3); Monocytes % (auto) 8.3 % (0.0-12.0); Neutrophils # (auto) 4.3 10 ^3/uL (1.6-8.6); Neutrophils % (auto) 89.5 % (37.0-80.0); Platelet Count (auto) 182 10^3/uL (140-450); Red Blood Cells 2.75 10^6/uL (4.0-5.20); Red Cell Distribution Width 17.6 % (11.8-14.3); White Blood Cell 4.8 10^3/uL (4.4-10.8)
[2020-02-22 11:25] LABS: Albumin 2.2 g/dL (3.4-5.0); Calcium 7.7 mg/dL (8.5-10.1)
[2020-02-22 11:29] LABS: BUN/Creatinine Ratio 24.1; Bilirubin, Total 0.3 mg/dL (0.2-1.0); Total Protein 6.4 g/dL (6.4-8.2)
[2020-02-22 11:34] LABS: Phosphorus 0.7 mg/dL (2.5-4.90); Potassium 5.7 mmol/L (3.5-5.1)
--- NOTE | 2020-02-22 11:34 | NUR ---
critical lab values called in will report to
--- NOTE | 2020-02-22 11:42 | NUR ---
Notified of abnormal lab results Dr. Schreiber at bedside notified of potassium and phosphorus.
[2020-02-22 12:00] VITALS: BP 139/73
[2020-02-22] MEDS ORDERED: SODIUM ZIRCONIUM CYCL 10 GM PAK PO ONE (12:15)
[2020-02-22] MEDS: SODIUM CHLOR 0.9% PF (SALINE LOCK) 10ML VIAL/SYR IV SCH ×3 (12:19→19:14)
--- NOTE | 2020-02-22 12:30 | NUR ---
Nutrition Followup Notes Wt: 63.8 kg Pt is COVID positive in isolation. Pt is with a regular diet with inadequate PO of 50% x 3 per RN doc. pt with no distress noted Est Energy needs: 3707-8664 kcals (20-23 kcal/kgBW), Est Protein needs: 61-67 gms/day (1.0-1.1 gm/kgBW). Will continue to monitor and reassess prn. Labs: CA 6.5 L, ALB 2.4 L BUN 28 H BM: Pt with 1 BM today per RN note Skin: BS 15 mod risk, full details in resident care manager rn note PES: 1) Increased nutrient needs aeb Pt currently NPO with no diet order r/t pt with no PO intake 2) Altered nutrition related lab values aeb elev RFTs, hypokalemia, hypocalcemia, hypoalbuminemia r/t current medical condition Comments: Will continue to monitor PO intake, skin status, pertinent labs and weight trends. Will f/u in 3-5 days. Rec: 1) continue assistance with meals. 2) Continue current plan of care
[2020-02-22] MEDS ORDERED: SODIUM PHOSPHATES 40 MEQ in D5W 5% 250 ML IV ONE (14:00)
[2020-02-22] MEDS ORDERED: CYANOCOBALAMIN (B-12) 1000 MCG/1 ML VIAL IM ONE (16:45)
[2020-02-22 16:51] VITALS: BP 134/76
--- NOTE | 2020-02-22 23:20 | NUR ---
Opening Shift Note Assumed care of patient, awake and alert. No S/S of distress/SOB or pain. Instructed on POC and to call for assist PRN, will continue to monitor for changes Q1hr and PRN.
[2020-02-23 01:14] VITALS: BP 134/76
[2020-02-23 05:00] VITALS: BP 131/59
[2020-02-23] MEDS: SODIUM CHLOR 0.9% PF (SALINE LOCK) 10ML VIAL/SYR IV SCH ×3 (05:56→22:13)
[2020-02-23] MEDS: ALBUTEROL SULF HFA 90MCG INH 200DOSE IN SCH ×3 (06:01→21:59)
[2020-02-23] MEDS: BUDESONIDE (INHALATION) 180 MCG IH IN SCH ×2 (06:02→21:59)
[2020-02-23 07:21] LABS: Basophils # (auto) 0 10 ^3/uL (0-0.2); Basophils % (auto) 0.1 % (0.0-2.0); Eosinophils # (auto) 0 10 ^3/uL (0-0.8); Hematocrit 29.2 % (36.0-46.0); Hemoglobin 9.8 g/dL (12.2-16.2); Lymphocytes # (auto) 0.1 10 ^3/uL (0.4-5.4); Mean Corpuscular Hemoglobin 32.5 pg (28.0-32.0); Mean Corpuscular Hgb Conc. 33.4 g/dL (32.0-36.0); Mean Corpuscular Volume 97.1 fL (80.0-100.0); Monocytes # (auto) 0.6 10 ^3/uL (0-1.3); Monocytes % (auto) 11.7 % (0.0-12.0); Neutrophils # (auto) 4.1 10 ^3/uL (1.6-8.6); Neutrophils % (auto) 85.2 % (37.0-80.0); Nucleated Red Blood Cells % 0.1 %; Platelet Count (auto) 200 10^3/uL (140-450); Red Blood Cells 3.01 10^6/uL (4.0-5.20); Red Cell Distribution Width 17.3 % (11.8-14.3); White Blood Cell 4.8 10^3/uL (4.4-10.8)
[2020-02-23 07:41] LABS: INR 0.97 (0.9-1.15)
[2020-02-23 07:42] LABS: Potassium 5.1 mmol/L (3.5-5.1)
[2020-02-23 08:00] LABS: Albumin 2.3 g/dL (3.4-5.0); BUN/Creatinine Ratio 27.1; Bilirubin, Total 0.4 mg/dL (0.2-1.0); CRP High Sensitivity 6.98 mg/dL (< 0.3); Calcium 8.1 mg/dL (8.5-10.1); Magnesium 1.7 mg/dL (1.6-2.6); Phosphorus 1.7 mg/dL (2.5-4.90); Total Protein 6.4 g/dL (6.4-8.2)
[2020-02-23 08:55] VITALS: BP 128/71
[2020-02-23] MEDS ORDERED: SODIUM PHOSPHATES 40 MEQ in D5W 5% 250 ML IV ONE (09:00)
[2020-02-23] MEDS: traMADol HCL 50 MG TAB PO PRN (09:17)
[2020-02-23] MEDS: SODIUM ZIRCONIUM CYCL 10 GM PAK PO SCH (09:17)
[2020-02-23] MEDS: CHOLECALCIFEROL (VITD3) 2,000 UNIT CAP PO SCH (09:18)
[2020-02-23] MEDS: PANTOPRAZOLE 40 MG TAB PO SCH ×2 (09:18→22:13)
[2020-02-23] MEDS: MULTIPLE VITAMIN TAB PO SCH (09:18)
[2020-02-23] MEDS: ASCORBIC ACID 1,000 MG TAB PO SCH (09:19)
[2020-02-23] MEDS: ZINC SULFATE 220mg CAP or TAB PO SCH (09:19)
[2020-02-23] MEDS: DexAMETHasone SOD PHOS 10MG/1ML VIAL INJ IV SCH (09:19)
[2020-02-23] MEDS: DOXYCYCLINE 100MG/250ML 250 ML IV SCH ×2 (09:19→22:13)
[2020-02-23] MEDS: MAGNESIUM OXIDE 400 MG TAB PO SCH ×2 (09:19→22:13)
[2020-02-23] MEDS: MAGNESIUM SULFATE 1GM/100ML 100 ML IV SCH ×2 (11:30→12:30)
--- NOTE | 2020-02-23 12:21 | NUR ---
Spoke to pharmacy regarding pending sodium phosphate, awaiting medication still to administer.
[2020-02-23 12:55] VITALS: BP 118/65
--- NOTE | 2020-02-23 14:14 | NUR ---
Spoke to MD MD Schreiber aware of patient's status including per CT, unable to push contrast through groin site. New orders received to cancel order and new order for VQ scan received. This rn paged Nuc med. Cont to monitor
--- NOTE | 2020-02-23 15:05 | NUR ---
Assessment SW is unable to conduct initial assessment with patient. Addendum: 02/23/20 at 1511 by BEATRICE CRUZ SS Amended: Links added.
--- NOTE | 2020-02-23 15:57 | NUR ---
Stool sent as ordered complete linen change performed after patient was incontinent of stool. Call light within reach
--- NOTE | 2020-02-23 16:20 | NUR ---
Spoke to MD MD Schreiber aware of patient's US results, awaiting stool results. No new orders received
[2020-02-23 16:52] VITALS: BP 118/49
--- NOTE | 2020-02-23 19:17 | NUR ---
Patient care endorsed endorsed care to BIMAL RN patient currently on 2l n/c sat 93%, call light within reach. No acute distress or sob
[2020-02-23 20:04] LABS: Urine Bacteria FEW /hpf (None Seen); Urine Blood Negative /uL (Negative); Urine Mucus FEW (None Seen); Urine Specific Gravity 1.021 (1.001-1.035); Urine WBC 5 /hpf (0 - 5)
[2020-02-23 20:30] LABS: Creatinine, Urine 90 mg/dL (30.0-125.0); Sodium Urine 42 mmol/L (40-220)
[2020-02-23 22:00] VITALS: BP 113/60
[2020-02-23] MEDS: ENOXAPARIN SOD 40 MG/0.4 ML SYRINGE SC SCH (22:14)
[2020-02-24 05:00] VITALS: BP 118/54
[2020-02-24] MEDS: SODIUM CHLOR 0.9% PF (SALINE LOCK) 10ML VIAL/SYR IV SCH ×3 (05:38→21:50)
[2020-02-24] MEDS: BUDESONIDE (INHALATION) 180 MCG IH IN SCH ×2 (06:46→21:38)
[2020-02-24] MEDS: ALBUTEROL SULF HFA 90MCG INH 200DOSE IN SCH ×3 (06:46→21:38)
[2020-02-24 07:30] LABS: Potassium 4.8 mmol/L (3.5-5.1)
[2020-02-24 07:31] LABS: Hematocrit 34.9 % (36.0-46.0); Mean Corpuscular Hemoglobin 33.6 pg (28.0-32.0); Mean Corpuscular Hgb Conc. 31.8 g/dL (32.0-36.0); Mean Corpuscular Volume 105.7 fL (80.0-100.0); Platelet Count (auto) 240 10^3/uL (140-450); Red Cell Distribution Width 18.4 % (11.8-14.3); White Blood Cell 6.6 10^3/uL (4.4-10.8)
[2020-02-24 07:33] LABS: Basophils % (manual) 0 (0.0-2.0); Blast Cells 0; Eosinophils % (manual) 0 (0-7); Metamyelocytes % 0; Monocytes % (manual) 0 (0-12); Myelocytes % 0; Promyelocytes % 0; Reactive Lymphocytes 0
[2020-02-24 07:41] LABS: Calcium 8.9 mg/dL (8.5-10.1); Magnesium 2.5 mg/dL (1.6-2.6); Phosphorus 2.1 mg/dL (2.5-4.90)
[2020-02-24] MEDS ORDERED: SODIUM PHOSPHATES 40 MEQ in D5W 5% 250 ML IV ONE (08:00)
[2020-02-24 08:49] VITALS: BP 100/35
[2020-02-24 08:59] LABS: Band Neutrophils % (manual) 8; Lymphocytes % (manual) 6 (10.0-50.0)
[2020-02-24] MEDS: ZINC SULFATE 220mg CAP or TAB PO SCH (10:15)
[2020-02-24] MEDS: MAGNESIUM OXIDE 400 MG TAB PO SCH ×2 (10:15→21:50)
[2020-02-24] MEDS: DexAMETHasone SOD PHOS 10MG/1ML VIAL INJ IV SCH (10:15)
[2020-02-24] MEDS: SODIUM ZIRCONIUM CYCL 10 GM PAK PO SCH (10:15)
[2020-02-24] MEDS: PANTOPRAZOLE 40 MG TAB PO SCH ×2 (10:15→21:50)
[2020-02-24] MEDS: DOXYCYCLINE 100MG/250ML 250 ML IV SCH (10:15)
[2020-02-24] MEDS: MULTIPLE VITAMIN TAB PO SCH (10:15)
[2020-02-24] MEDS: ASCORBIC ACID 1,000 MG TAB PO SCH (10:15)
[2020-02-24] MEDS: CHOLECALCIFEROL (VITD3) 2,000 UNIT CAP PO SCH (10:15)
[2020-02-24] MEDS: ENOXAPARIN SOD 40 MG/0.4 ML SYRINGE SC SCH ×2 (10:16→21:51)
[2020-02-24] MEDS: traMADol HCL 50 MG TAB PO PRN (10:20)
--- NOTE | 2020-02-24 10:30 | NUR ---
Patient was seen by Physical therapy and refused to try to stand up, refused ROM. Patient states she ambulated at home with a cane but unable to stand at this time. MD Abdoul rapp.
--- NOTE | 2020-02-24 11:06 | NUR ---
at bedside MD Schreiber at bedside aware of patient's status. MD spoke to patient's on the phone and states patient will be discharge home on hospice. New orders received for social service consult. Will cont care
--- NOTE | 2020-02-24 12:10 | NUR ---
Patient noted to have oxygen sat at 87-88%, pt placed on 2 l n/c and saturation up to 93%. No acute distress or sob noted.
[2020-02-24 13:00] VITALS: BP 124/50
--- NOTE | 2020-02-24 13:09 | NUR ---
Assessment Patient is a 74-year-old female. Assessment was completed with patient Hayden PH: [phone]. Prior to admission patient lived home with Hayden and functioned independently. Per Hayden prior to admission patient was able to care for her own ADL's Patient has a walker, CPAP and oxygen for home use. Advised Hayden there is a social service consult for hospice evaluation. Information and choice letter was given to Hayden. Hayden did not have a hospice preference. MD order will be faxed to [facility] that doctor recommended. Hayden is in agreement with [facility]. Informed Hayden he has the right to participate in all discharge planning. Hayden verbalized understanding and agreed to discharge plan. Faxed clinical information to [facility]. Pending acceptance. Addendum: 02/24/20 at 1342 by ISELA DOBSON Amended: Links added.
--- NOTE | 2020-02-24 15:09 | NUR ---
Medication received by Pharmacy at this time, will medicate with sodium phosphate as ordered.
--- NOTE | 2020-02-24 15:31 | NUR ---
D/C Planning Received a follow up called from Dunia with [facility] advising me order has been. Patient will be seen by hospice upon d/c day. Per MD patient will discharge on Saturday02/25/20.
[2020-02-24 17:00] VITALS: BP 113/51
--- NOTE | 2020-02-24 19:00 | NUR ---
Patient care endorsed endorsed care to Esequiel rn, patient laying comfortably in bed no acute distress or sob noted currently on 2L n/c saturation is 93%. Call light within reach
[2020-02-24 22:00] VITALS: BP 118/64
[2020-02-25 05:00] VITALS: BP 134/57
[2020-02-25] MEDS: BUDESONIDE (INHALATION) 180 MCG IH IN SCH (06:10)
[2020-02-25] MEDS: ALBUTEROL SULF HFA 90MCG INH 200DOSE IN SCH (06:10)
[2020-02-25] MEDS: SODIUM CHLOR 0.9% PF (SALINE LOCK) 10ML VIAL/SYR IV SCH (06:22)
--- NOTE | 2020-02-25 07:00 | NUR ---
Dr Schreiber bedside with patient discussing plan of care
[2020-02-25 08:00] VITALS: BP 128/33
[2020-02-25 08:56] VITALS: BP 128/33
[2020-02-25] MEDS: ASCORBIC ACID 1,000 MG TAB PO SCH (09:33)
[2020-02-25] MEDS: ZINC SULFATE 220mg CAP or TAB PO SCH (09:33)
[2020-02-25] MEDS: DexAMETHasone SOD PHOS 10MG/1ML VIAL INJ IV SCH (09:33)
[2020-02-25] MEDS: MULTIPLE VITAMIN TAB PO SCH (09:33)
[2020-02-25] MEDS: PANTOPRAZOLE 40 MG TAB PO SCH (09:33)
[2020-02-25] MEDS: MAGNESIUM OXIDE 400 MG TAB PO SCH (09:33)
[2020-02-25] MEDS: CHOLECALCIFEROL (VITD3) 2,000 UNIT CAP PO SCH (09:34)
[2020-02-25] MEDS: ENOXAPARIN SOD 40 MG/0.4 ML SYRINGE SC SCH (09:34)
[2020-02-25] MEDS ORDERED: ALBUTEROL SULF HFA 90MCG INH 200DOSE IN PRN (10:00)
[2020-02-25 11:02] VITALS: BP 128/33
--- NOTE | 2020-02-25 11:25 | NUR ---
Received call from [facility], [facility] is scheduled for pickup at 1300
--- NOTE | 2020-02-25 11:36 | NUR ---
D/C Planning Placed follow up to Dunia with [facility] hosp[facility] advising her patient has discharge orders. Per Dunia with [facility] Patient will be seen today upon discharge. Transportation has been arranged with [facility] at 1pm via gurney with oxygen. Bedside Nurse will be informed.
--- NOTE | 2020-02-25 12:43 | NUR ---
Nutrition Followup Notes Wt: 62.6 kg Pt is COVID positive in isolation. Pt is with a regular diet with deteriorating inadequate PO of 38% x 4 per RN doc. pt with no distress noted Est Energy needs: 0310-9350 kcals (20-23 kcal/kgBW), Est Protein needs: 61-67 gms/day (1.0-1.1 gm/kgBW). Will continue to monitor and reassess prn. Labs: ALB 2.3 L BUN 20 H BM: Pt with 1 BM on 02/23 per RN note Skin: BS 15 mod risk, full details in rn long term care note PES: 1) Increased nutrient needs aeb Pt currently NPO with no diet order r/t pt with no PO intake 2) Altered nutrition related lab values aeb elev RFTs, hypokalemia, hypocalcemia, hypoalbuminemia r/t current medical condition Comments: Will continue to monitor PO intake, skin status, pertinent labs and weight trends. Will f/u in 3-5 days. Rec: 1) continue assistance with meals. 2) Continue current plan of care
[2020-02-25 13:00] VITALS: BP 139/58
--- NOTE | 2020-02-25 13:45 | NUR ---
Discharge instructions given as ordered. Patient discharged on Hospice with [facility]. Patient picked up by [facility]. Encouraged to follow up with PMD as instructed which will be with Hospice. All questions and concerns addressed. Patient verbalized understanding. Medication reconciliation form completed and copy given to patient. No home medications being held in Pharmacy, and no needed vaccines given, as patient declined. IV removed with catheter intact, pressure dressing applied, oswald catheter removed. Telemetry unit returned to ICU. Patient taken to vehicle via gurney with all personal belongings, accompanied by staff and transportation personnel. No distress noted at time of departure.
[2020-02-26] MEDS ORDERED: CILO100T PO (17:52)
[2020-02-26] MEDS ORDERED: FURO40TA4 PO (17:53)
[2020-02-26] MEDS ORDERED: VERA240C2 PO (17:53)
[2020-02-26] MEDS ORDERED: WARF1TAB36 PO (17:54)
[2020-02-26] MEDS ORDERED: IPRA0.00 IN (17:55)
[2020-02-26] MEDS ORDERED: FLUT1AER6 IN (17:56)
[2020-02-26] MEDS ORDERED: HYDR12.56 PO (17:58)
[2020-02-26] MEDS ORDERED: FERR-20 PO (17:58)
[2020-02-26] MEDS ORDERED: FOLI1TAB6 PO (17:58)
== END 2020-02-25 13:45 | disposition hospice, home (50) | DRG 871 ==
LOC: ER 14:05 → EDBD 14:05 → TELE-EAST 14:06
PROVIDERS: ADMIT Nurse Practitioner Family; ATTEND Internal Medicine
PROC: 06HY33Z Insertion of Infusion Device into Lower Vein, Percutaneous Approach (ICD-10-PCS; 2020-02-19)
PROC: 30233N1 Transfusion of Nonautologous Red Blood Cells into Peripheral Vein, Percutaneous Approach (ICD-10-PCS; principal; 2020-02-21)
DX: A41.89 Other specified sepsis (principal); U07.1 COVID-19; J12.89 Other viral pneumonia; I21.4 Non-ST elevation (NSTEMI) myocardial infarction; D68.9 Coagulation defect, unspecified; D61.818 Other pancytopenia; N17.9 Acute kidney failure, unspecified; J96.10 Chronic respiratory failure, unspecified whether with hypoxia or hypercapnia; E87.4 Mixed disorder of acid-base balance; E87.1 Hypo-osmolality and hyponatremia; I95.9 Hypotension, unspecified; E03.9 Hypothyroidism, unspecified; E87.6 Hypokalemia; D53.9 Nutritional anemia, unspecified; E21.3 Hyperparathyroidism, unspecified; I48.91 Unspecified atrial fibrillation; I50.9 Heart failure, unspecified; Z88.8 Allergy status to other drugs, medicaments and biological substances; Z88.0 Allergy status to penicillin; Z90.49 Acquired absence of other specified parts of digestive tract; Z79.01 Long term (current) use of anticoagulants; Z80.9 Family history of malignant neoplasm, unspecified; Z82.3 Family history of stroke; Z82.49 Family history of ischemic heart disease and other diseases of the circulatory system; Z83.3 Family history of diabetes mellitus; Z87.891 Personal history of nicotine dependence
CPT/HCPCS: 36415; 36556; 36600; 51702; 71045; 76536; 76700; 80048; 80053; 81001; 82270; 82306; 82550; 82570; 82607; 82728; 82746; 82805; 83036; 83540; 83550; 83605; 83615; 83735; 83880; 83935; 83970; 84100; 84132; 84300; 84439; 84443; 84484; 84550; 85007; 85025; 85027; 85045; 85048; 85379; 85610; 85730; 86141; 86850; 86900; 86901; 86920; 87040; 87045; 87426; 87427; 87493; 93970; 94640; 96365; 96367; 96375; 97163; 99291; G0378; J0610; J1100; J3490; J7060

== ENCOUNTER 2020-02-26 12:39 | Inpatient (IN) | payer OTHER, MEDICAID ==
[~2020-02-26] VITALS: Ht 149.9 cm; Wt 61.8 kg
[2020-02-26] MEDS ORDERED: SODIUM CHLORIDE 0.9% 500 ML IV ONE (13:15)
[2020-02-26] MEDS ORDERED: DEXTROSE (50%) 50ML SYRG IV ONE (14:15)
[2020-02-26] MEDS ORDERED: DEXTROSE 50% SYRINGE 50 ML IV ONE (14:16)
[2020-02-26 14:30] LABS: Hematocrit 33.9 % (36.0-46.0); Hemoglobin 10.9 g/dL (12.2-16.2); Mean Corpuscular Hemoglobin 32.5 pg (28.0-32.0); Mean Corpuscular Hgb Conc. 32.1 g/dL (32.0-36.0); Mean Corpuscular Volume 101.3 fL (80.0-100.0); Platelet Count (auto) 326 10^3/uL (140-450); Red Blood Cells 3.34 10^6/uL (4.0-5.20); Red Cell Distribution Width 17.9 % (11.8-14.3)
[2020-02-26 14:41] LABS: Basophils % (manual) 0 (0.0-2.0); Blast Cells 0; Eosinophils % (manual) 0 (0-7); INR 1.13 (0.9-1.15); Partial Thromboplastin Time 25.1 sec (23.0-31.2); Promyelocytes % 0; Reactive Lymphocytes 0
[2020-02-26 14:55] LABS: Calcium 10.5 mg/dL (8.5-10.1)
[2020-02-26 15:00] LABS: BUN/Creatinine Ratio 35.1
[2020-02-26] MEDS ORDERED: ACETAMINOPHEN 325 MG TAB PO ONE (15:30)
[2020-02-26] MEDS ORDERED: NITROGLYCERIN 0.4 MG SL TAB SL PRN (15:45)
[2020-02-26] MEDS: DOXYCYCLINE 100MG/250ML 250 ML IV SCH (15:45)
[2020-02-26] MEDS ORDERED: ALUM & MAG HYDROX-SIMETH LIQ(MAALOX) 30 ML PO PRN (15:45)
[2020-02-26] MEDS ORDERED: MORPHINE SULF INJ 2 MG/ML SYRINGE 1ML IV PRN ×2 (15:45)
[2020-02-26] MEDS ORDERED: methylPREDNISolone SOD SUCC 125 MG/2 ML VL IV ONE (15:45)
[2020-02-26] MEDS ORDERED: HYDROcodone-ACET 5/325MG TAB PO PRN (15:45)
[2020-02-26] MEDS ORDERED: NITROGLYCERIN 0.4 MG SL TAB SL SCH (15:45)
[2020-02-26] MEDS ORDERED: ONDANSETRON HCL 4 MG/2 ML VIAL IV PRN (15:45)
[2020-02-26] MEDS ORDERED: SODIUM CHLORIDE 0.9% 1,000 ML IV SCH (15:45)
[2020-02-26] MEDS ORDERED: LACTATED RINGER'S 1,000 ML IV ONE (15:45)
[2020-02-26] MEDS ORDERED: LORazepam 0.5 MG TAB PO PRN (15:45)
[2020-02-26] MEDS ORDERED: ACETAMINOPHEN 500 MG TAB PO PRN (15:45)
[2020-02-26 16:33] LABS: Band Neutrophils % (manual) 9; Lymphocytes % (manual) 10 (10.0-50.0); Metamyelocytes % 3; Monocytes % (manual) 4 (0-12); Myelocytes % 2
[2020-02-26] MEDS ORDERED: NEUTRA-PHOS TABLET PO ONE (16:45)
[2020-02-26] MEDS ORDERED: CYANOCOBALAMIN (B-12) 1000 MCG/1 ML VIAL IM ONE (16:45)
[2020-02-26] MEDS ORDERED: WARFARIN SODIUM 2 MG TAB PO ONE (17:00)
[2020-02-26] MEDS ORDERED: hydrALAZINE HCL 20 MG/ML VL IV PRN (17:15)
[2020-02-26] MEDS ORDERED: CILO100T PO (17:52)
[2020-02-26] MEDS ORDERED: VERA240C2 PO (17:53)
[2020-02-26] MEDS ORDERED: FURO40TA4 PO (17:53)
[2020-02-26] MEDS ORDERED: WARF1TAB36 PO (17:54)
[2020-02-26] MEDS ORDERED: IPRA0.00 IN (17:55)
[2020-02-26] MEDS ORDERED: FLUT1AER6 IN (17:56)
[2020-02-26] MEDS ORDERED: HYDR12.56 PO (17:58)
[2020-02-26] MEDS ORDERED: FERR-20 PO (17:58)
[2020-02-26] MEDS ORDERED: FOLI1TAB6 PO (17:58)
[2020-02-26] MEDS: ONDANSETRON ODT 4 MG TAB PO SCH (18:23)
[2020-02-26] MEDS: FUROSEMIDE 20 MG/2 ML VIAL IV SCH (18:23)
[2020-02-26 19:03] LABS: Magnesium 2.1 mg/dL (1.6-2.6); Phosphorus 2.8 mg/dL (2.5-4.90)
[2020-02-26] MEDS: methylPREDNISolone SOD SUCC 40 MG/ML VL IV SCH (21:39)
[2020-02-26] MEDS: MAGNESIUM OXIDE 400 MG TAB PO SCH (21:39)
[2020-02-26] MEDS: FAMOTIDINE (10MG/ML) 2ML VL IV SCH (21:39)
[2020-02-26] MEDS: DOCUSATE SOD 100 MG CAP PO SCH (21:39)
[2020-02-26] MEDS: BUDESONIDE (INHALATION) 180 MCG IH IN SCH (22:00)
[2020-02-27] MEDS: DOXYCYCLINE 100MG/250ML 250 ML IV SCH ×2 (04:02→16:56)
[2020-02-27] MEDS: FUROSEMIDE 20 MG/2 ML VIAL IV SCH (06:00)
[2020-02-27] MEDS: methylPREDNISolone SOD SUCC 40 MG/ML VL IV SCH ×3 (06:00→22:28)
[2020-02-27] MEDS: ONDANSETRON ODT 4 MG TAB PO SCH ×5 (06:00→23:51)
[2020-02-27] MEDS: LEVOTHYROXINE SODIUM 25 MCG TAB PO SCH (07:00)
[2020-02-27] MEDS: NEUTRA-PHOS TABLET PO SCH ×3 (08:00→17:52)
[2020-02-27 08:33] LABS: INR 1.31 (0.9-1.15)
[2020-02-27] MEDS ORDERED: POTASSIUM CHL 20 Meq TABLET PO SCH (10:00)
[2020-02-27] MEDS: FAMOTIDINE (10MG/ML) 2ML VL IV SCH ×2 (10:00→22:28)
[2020-02-27] MEDS: ASCORBIC ACID 1,000 MG TAB PO SCH (11:13)
[2020-02-27] MEDS: MULTIPLE VITAMIN TAB PO SCH (11:13)
[2020-02-27] MEDS: CHOLECALCIFEROL (VITD3) 2,000 UNIT CAP PO SCH (11:13)
[2020-02-27] MEDS: CYANOCOBALAMIN 500 MCG TAB PO SCH (11:13)
[2020-02-27] MEDS: MAGNESIUM OXIDE 400 MG TAB PO SCH ×2 (11:13→22:29)
[2020-02-27] MEDS: DOCUSATE SOD 100 MG CAP PO SCH ×2 (11:15→22:29)
[2020-02-27] MEDS: FOLIC ACID 1 MG TAB PO SCH (11:15)
[2020-02-27] MEDS: LOSARTAN POTASSIUM 25 MG TAB PO SCH (11:16)
--- NOTE | 2020-02-27 13:25 | NUR ---
Respiratory note: 10:00AM ALBUTEROL MED NEB TX NOT ADMINISTERED DUE TO THERAPIST UNAVAILABLE. RN AWARE TO HAVE RT PAGED IF NEEDED. PT WAS ASSESSED AND FOUND TO BE SLEEPING WITH NO NOTED DISTRESS. HR 54 RR 14 SPO2 97% ON 2L N/C.
[2020-02-27] MEDS: BUDESONIDE (INHALATION) 180 MCG IH IN SCH ×2 (16:33→19:49)
[2020-02-27] MEDS ORDERED: WARFARIN SODIUM 2 MG TAB PO ONE (17:00)
--- NOTE | 2020-02-27 18:38 | NUR ---
Telemetry admit from ER RONALD LUCERO admitted to Telemetry unit after verbal report received. Patient oriented to Ana Mensah, primary RN, unit, room, bed, and unit policies regarding patient care and visiting hours. Patient now on continuous telemetry monitoring, tele box # 46 and telemetry reading on arrival to unit is sinus bradycardia @ 45 bpm. Patient placed on bedside oxygen, weighed by bedscale and encouraged to call if they need something. All questions and concerns addressed, patient verbalized understanding.
--- NOTE | 2020-02-27 19:34 | NUR ---
Care endorsed to MYRTLE Maynard, night nurse.
--- NOTE | 2020-02-27 19:45 | NUR ---
Opening Shift Note Assumed care of patient. Patient resting in bed with eyes closed. No S/S of distress/SOB or pain. Safety measures maintained by keeping the bed locked in lowest position, 2 side rails up, personal items and call light within reach. Instructed on POC and to call for assist PRN, will continue to monitor for changes Q1hr and PRN.
--- NOTE | 2020-02-28 02:00 | NUR ---
Called Hospitalist for positive a positive blood culture. Gram positive cocci in clusters.
--- NOTE | 2020-02-28 02:08 | NUR ---
Spoke to Hospitalist. New orders for Vancomycin per pharmacy.
[2020-02-28] MEDS ORDERED: VANCOMYCIN PER PHARMACY 0 MG IV SCH (02:15)
[2020-02-28] MEDS ORDERED: VANCOMYCIN 1GM/250ML 250 ML IV ONE (02:30)
[2020-02-28] MEDS: DOXYCYCLINE 100MG/250ML 250 ML IV SCH ×2 (04:39→16:40)
[2020-02-28 05:06] VITALS: BP 121/68
[2020-02-28 05:31] LABS: Basophils # (auto) 0 10 ^3/uL (0-0.2); Eosinophils # (auto) 0 10 ^3/uL (0-0.8)
[2020-02-28 05:40] LABS: Basophils % (auto) 0.5 % (0.0-2.0); Eosinophils % (auto) 0.1 % (0.0-7.0); Hematocrit 31.3 % (36.0-46.0); Hemoglobin 9.5 g/dL (12.2-16.2); Lymphocytes # (auto) 0.6 10 ^3/uL (0.4-5.4); Lymphocytes % (auto) 7.2 % (10.0-50.0); Mean Corpuscular Hemoglobin 32.5 pg (28.0-32.0); Mean Corpuscular Hgb Conc. 30.4 g/dL (32.0-36.0); Monocytes # (auto) 0.6 10 ^3/uL (0-1.3); Monocytes % (auto) 7.5 % (0.0-12.0); Neutrophils # (auto) 6.7 10 ^3/uL (1.6-8.6); Neutrophils % (auto) 84.7 % (37.0-80.0); Nucleated Red Blood Cells % 0.1 %; Platelet Count (auto) 283 10^3/uL (140-450); Red Blood Cells 2.93 10^6/uL (4.0-5.20); Red Cell Distribution Width 18.2 % (11.8-14.3); White Blood Cell 7.9 10^3/uL (4.4-10.8)
[2020-02-28 05:56] LABS: INR 1.72 (0.9-1.15)
[2020-02-28] MEDS: methylPREDNISolone SOD SUCC 40 MG/ML VL IV SCH ×3 (06:22→22:12)
[2020-02-28] MEDS: LEVOTHYROXINE SODIUM 25 MCG TAB PO SCH (06:22)
[2020-02-28] MEDS: ONDANSETRON ODT 4 MG TAB PO SCH ×3 (06:22→17:30)
[2020-02-28 07:30] LABS: Urine Bacteria FEW /hpf (None Seen); Urine Blood Negative /uL (Negative); Urine Mucus FEW (None Seen); Urine Specific Gravity 1.021 (1.001-1.035); Urine WBC 2 /hpf (0 - 5)
[2020-02-28] MEDS: NEUTRA-PHOS TABLET PO SCH ×3 (08:00→17:36)
--- NOTE | 2020-02-28 08:00 | NUR ---
Opening Shift Note Assumed care of patient, awake, alert and oriented X4. No S/S of distress/SOB or pain. O2 @ 2 LPM via nasal cannula with sats @ 97%. Tele# 46, sinus bradycardia @ 50 bpm. Left upper arm midline patent and saline locked. Urethral Oliveros catheter draining clear, yellow urine to gravity. Bilateral SCD's in place. Instructed on POC and to call for assist PRN, verbalized understanding. Bed locked, in lowest position, call light within reach, will continue to monitor for changes Q1hr and PRN.
[2020-02-28 09:00] VITALS: BP 122/60
--- NOTE | 2020-02-28 09:46 | NUR ---
ROUNDS Dr Schreiber at bedside for rounds, no new orders at this time. Patient updated on the plan of care, verbalized understanding.
[2020-02-28] MEDS: LOSARTAN POTASSIUM 25 MG TAB PO SCH (10:00)
[2020-02-28] MEDS: BUDESONIDE (INHALATION) 180 MCG IH IN SCH ×2 (10:00→19:04)
[2020-02-28] MEDS: DOCUSATE SOD 100 MG CAP PO SCH ×2 (10:30→22:12)
[2020-02-28] MEDS: FAMOTIDINE (10MG/ML) 2ML VL IV SCH ×2 (10:30→22:11)
[2020-02-28] MEDS: FOLIC ACID 1 MG TAB PO SCH (10:30)
[2020-02-28] MEDS: CHOLECALCIFEROL (VITD3) 2,000 UNIT CAP PO SCH (10:31)
[2020-02-28] MEDS: MULTIPLE VITAMIN TAB PO SCH (10:31)
[2020-02-28] MEDS: CYANOCOBALAMIN 500 MCG TAB PO SCH (10:31)
[2020-02-28] MEDS: ASCORBIC ACID 1,000 MG TAB PO SCH (10:31)
[2020-02-28] MEDS: MAGNESIUM OXIDE 400 MG TAB PO SCH ×2 (10:31→22:12)
[2020-02-28 13:00] VITALS: BP 116/57
[2020-02-28] MEDS: VANCOMYCIN 750mg/250ml 250 ML IV SCH (14:54)
--- NOTE | 2020-02-28 15:30 | NUR ---
Report given to Ana Trinidad RN. Patient to be transferred to room 234.
--- NOTE | 2020-02-28 15:49 | NUR ---
Patient transferred to [facility] via wheelchair on 02 @ 2 LPM via nasal cannula with all personal belongings. No distress noted upon departure.
[2020-02-28 17:00] VITALS: BP 139/66
[2020-02-28] MEDS ORDERED: WARFARIN SODIUM 2 MG TAB PO ONE (17:00)
[2020-02-28] MEDS: ALBUTEROL SULF HFA 90MCG INH 200DOSE IN PRN (19:04)
--- NOTE | 2020-02-28 19:20 | NUR ---
Opening Shift Note Received report from Ana IRAHETA. Assumed care of patient, awake and alert. No S/S of distress/SOB or pain. Instructed on POC and to call for assist PRN. Fall precaution measures in place, will continue to monitor for changes Q1hr and PRN.
[2020-02-28 22:00] VITALS: BP 107/41
[2020-02-29] MEDS: ONDANSETRON ODT 4 MG TAB PO SCH ×5 (00:03→23:58)
[2020-02-29] MEDS: VANCOMYCIN 750mg/250ml 250 ML IV SCH ×2 (01:52→15:03)
--- NOTE | 2020-02-29 02:59 | NUR ---
Received call from security installation technician re low heart rate of 42bpm. Patient sleeping, wake her up and the heart rate went up to 60s. Per patient she is okay, not in distress or any pain. Per report patient has been bradycardic in the 40-50s to sinus rhythm in the low 60s. Will continue to monitor.
[2020-02-29] MEDS: DOXYCYCLINE 100MG/250ML 250 ML IV SCH ×2 (03:40→17:26)
[2020-02-29 05:00] VITALS: BP 139/54
[2020-02-29] MEDS: methylPREDNISolone SOD SUCC 40 MG/ML VL IV SCH ×3 (05:48→21:52)
[2020-02-29] MEDS: BUDESONIDE (INHALATION) 180 MCG IH IN SCH ×2 (06:11→22:30)
[2020-02-29] MEDS: LEVOTHYROXINE SODIUM 25 MCG TAB PO SCH (06:30)
--- NOTE | 2020-02-29 06:48 | NUR ---
Patient's heart rate at this time is in the 50s, continue care.
[2020-02-29 07:13] LABS: INR 1.94 (0.9-1.15)
[2020-02-29 07:34] LABS: BUN/Creatinine Ratio 31.7; Calcium 9.3 mg/dL (8.5-10.1)
--- NOTE | 2020-02-29 07:35 | NUR ---
Opening Shift Note Assumed care of patient, awake and alert, O2 at 2l. No S/S of distress/SOB or pain. Instructed on POC and to call for assist PRN, will continue to monitor for changes Q1hr and PRN.
[2020-02-29 08:00] VITALS: BP 149/58
[2020-02-29] MEDS: NEUTRA-PHOS TABLET PO SCH ×3 (08:00→17:27)
[2020-02-29] MEDS: FOLIC ACID 1 MG TAB PO SCH (09:24)
[2020-02-29] MEDS: FAMOTIDINE (10MG/ML) 2ML VL IV SCH ×2 (09:24→21:52)
[2020-02-29] MEDS: DOCUSATE SOD 100 MG CAP PO SCH ×2 (09:24→21:51)
[2020-02-29] MEDS: MAGNESIUM OXIDE 400 MG TAB PO SCH ×2 (09:25→21:51)
[2020-02-29] MEDS: CYANOCOBALAMIN 500 MCG TAB PO SCH (09:25)
[2020-02-29] MEDS: LOSARTAN POTASSIUM 25 MG TAB PO SCH (09:25)
[2020-02-29] MEDS: ASCORBIC ACID 1,000 MG TAB PO SCH (09:25)
[2020-02-29] MEDS: CHOLECALCIFEROL (VITD3) 2,000 UNIT CAP PO SCH (09:26)
[2020-02-29] MEDS: MULTIPLE VITAMIN TAB PO SCH (10:11)
[2020-02-29 10:49] LABS: Hemoglobin 7.9 g/dL (12.2-16.2)
[2020-02-29 10:50] LABS: Hematocrit 24.9 % (36.0-46.0); Mean Corpuscular Hemoglobin 32.4 pg (28.0-32.0); Mean Corpuscular Hgb Conc. 31.6 g/dL (32.0-36.0); Mean Corpuscular Volume 102.5 fL (80.0-100.0); Platelet Count (auto) 155 10^3/uL (140-450); Red Blood Cells 2.43 10^6/uL (4.0-5.20); Red Cell Distribution Width 17.6 % (11.8-14.3); White Blood Cell 7.6 10^3/uL (4.4-10.8)
[2020-02-29 10:56] LABS: Basophils % (manual) 0 (0.0-2.0); Blast Cells 0; Myelocytes % 0; Promyelocytes % 0; Reactive Lymphocytes 0
[2020-02-29 11:35] LABS: Band Neutrophils % (manual) 2; Eosinophils % (manual) 1 (0-7); Lymphocytes % (manual) 4 (10.0-50.0); Metamyelocytes % 1; Monocytes % (manual) 5 (0-12)
--- NOTE | 2020-02-29 11:39 | NUR ---
Assessment Patient is a 74 year old female, who is alert and oriented. Patient cognitive abilities are intact. Patient stated prior being admission to [facility], she need assistance with ambulation and ADL's. Patient stated that she has a home health aide that comes to house 3 days a week for assistance, patient could not name the agency that she use. Patient stated that her cousin Erwin ([phone]) is her support system and he will provide transportation post discharge. Patient states that she will return home post discharge. Patient states that she does not have advance directive on file at [facility]. Discharge planning: Patient will return home post discharge, Patient will follow up care with PCP post discharge. SW will provide Advance Directive to patient. There are no other discharge planning needs to address at the moment.
--- NOTE | 2020-02-29 11:47 | NUR ---
Nutrition Assessment Notes please see attached link for complete assessment [employer] needs BW 64 [id number] kcals (23-25 kcal/kgBW), Est Protein needs: 64-70 gms/day (1.0-1.1 gm/kgBW). Will continue to monitor and reassess prn. Addendum: 02/29/20 at [address] Amended: Links added.
[2020-02-29 11:58] VITALS: BP 130/58
--- NOTE | 2020-02-29 13:00 | NUR ---
PATIENTS CAREGIVER COME TO SEE PATIENT AND INFORM HER REGARDING LOSS OF SPOUSE. PATIENT SEEMS CONFUSED AND UNABLE TO BELIEVE INFORMATION AT THIS TIME. WILL CONTINUE TO MONITOR.
[2020-02-29 17:00] VITALS: BP 131/59
[2020-02-29] MEDS ORDERED: WARFARIN SODIUM 2 MG TAB PO ONE (17:00)
--- NOTE | 2020-02-29 17:41 | NUR ---
SS consult regarding prior living situation. Pt was residing with her spouse and had a caregiver prior to admission. Pt is exhibiting some confusion. Contacted caregiver, Roel, regarding prior living situation. Per Roel, pts spouse passed since she was admitted and pt does not know. Roel states that pt may need placement after discharge. Pt has a income of $1149 a month. If pt does not qualify under insurance, she could benefit from board and care placement if shes in agreeance. Caregiver to come in at 1300 and let pt know about husbands passing. Will follow up with pt on tomorrow.
--- NOTE | 2020-02-29 19:00 | NUR ---
Opening Shift Note Assumed care of patient, awake and alert. No S/S of distress/SOB or pain. Patient safety measures in place side rails up x2, bed in lowest position, and call light within reach. Instructed on POC and to call for assist PRN, will continue to monitor for changes Q1hr and PRN.
[2020-02-29 22:00] VITALS: BP 132/61
[2020-03-01] MEDS: VANCOMYCIN 750mg/250ml 250 ML IV SCH ×2 (01:32→14:00)
[2020-03-01] MEDS: ALBUTEROL SULF HFA 90MCG INH 200DOSE IN PRN ×3 (03:11→22:08)
[2020-03-01] MEDS: DOXYCYCLINE 100MG/250ML 250 ML IV SCH ×2 (03:22→15:45)
[2020-03-01 05:00] VITALS: BP 132/57
[2020-03-01] MEDS: methylPREDNISolone SOD SUCC 40 MG/ML VL IV SCH ×3 (05:20→21:46)
[2020-03-01] MEDS: ONDANSETRON ODT 4 MG TAB PO SCH ×3 (05:20→18:00)
[2020-03-01] MEDS: LEVOTHYROXINE SODIUM 25 MCG TAB PO SCH (06:07)
[2020-03-01 06:39] LABS: Hematocrit 29.4 % (36.0-46.0); Hemoglobin 9.5 g/dL (12.2-16.2); Mean Corpuscular Hemoglobin 32.6 pg (28.0-32.0); Mean Corpuscular Hgb Conc. 32.2 g/dL (32.0-36.0); Mean Corpuscular Volume 101.2 fL (80.0-100.0); Platelet Count (auto) 296 10^3/uL (140-450); Red Cell Distribution Width 17.5 % (11.8-14.3)
[2020-03-01 06:51] LABS: INR 1.48 (0.9-1.15)
[2020-03-01 06:52] LABS: Basophils % (manual) 0 (0.0-2.0); Blast Cells 0; Eosinophils % (manual) 0 (0-7); Reactive Lymphocytes 0
[2020-03-01] MEDS: BUDESONIDE (INHALATION) 180 MCG IH IN SCH ×2 (06:53→22:08)
[2020-03-01 07:13] LABS: Band Neutrophils % (manual) 2; Lymphocytes % (manual) 10 (10.0-50.0); Metamyelocytes % 4; Monocytes % (manual) 9 (0-12); Myelocytes % 1; Promyelocytes % 1
--- NOTE | 2020-03-01 07:50 | NUR ---
Opening Shift Note Assumed care of patient, awake and alert. A/O X 3. No S/S of distress/SOB or pain. Patient on 2L NC. Skin is warm and dry. Oliveros in place with 250mL clear yellow urine draining. Right arm presents with a large protrusion located on the medial side at the elbow region. Patient states that it "does not hurt". Instructed on POC and to call for assist PRN. Patient verbalized understanding. Safety measures are in place and the call light is within reach of the patient. Will continue to monitor for changes Q1hr and PRN.
[2020-03-01 08:00] VITALS: BP 125/62
[2020-03-01] MEDS: NEUTRA-PHOS TABLET PO SCH ×3 (08:00→18:00)
[2020-03-01 09:17] VITALS: BP 125/62
[2020-03-01] MEDS: LOSARTAN POTASSIUM 25 MG TAB PO SCH (10:00)
[2020-03-01] MEDS: FAMOTIDINE (10MG/ML) 2ML VL IV SCH ×2 (10:19→21:46)
[2020-03-01] MEDS: DOCUSATE SOD 100 MG CAP PO SCH ×2 (10:19→21:46)
[2020-03-01] MEDS: CYANOCOBALAMIN 500 MCG TAB PO SCH (10:20)
[2020-03-01] MEDS: MAGNESIUM OXIDE 400 MG TAB PO SCH ×2 (10:20→21:46)
[2020-03-01] MEDS: ASCORBIC ACID 1,000 MG TAB PO SCH (10:21)
[2020-03-01] MEDS: FOLIC ACID 1 MG TAB PO SCH (10:21)
[2020-03-01] MEDS: MULTIPLE VITAMIN TAB PO SCH (10:21)
[2020-03-01] MEDS: CHOLECALCIFEROL (VITD3) 2,000 UNIT CAP PO SCH (10:22)
--- NOTE | 2020-03-01 11:40 | NUR ---
Dr. Schreiber at bedside Dr. Schreiber at bedside discussing the POC with the patient.
[2020-03-01 13:00] VITALS: BP 123/49
[2020-03-01] MEDS ORDERED: WARFARIN SODIUM 2.5 MG TAB PO ONE (17:00)
[2020-03-01 17:24] VITALS: BP 111/60
--- NOTE | 2020-03-01 19:00 | NUR ---
Opening Shift Note Assumed care of patient, awake and alert and oriented x4. No S/S of distress/SOB or pain. safety measures in place bed in lowest position side rails up x2 and call light with in reach. Instructed on POC and to call for assist PRN, will continue to monitor for changes Q1hr and PRN.
[2020-03-01 20:00] VITALS: BP 125/61
[2020-03-02] MEDS: VANCOMYCIN 750mg/250ml 250 ML IV SCH ×2 (02:00→14:46)
[2020-03-02] MEDS: DOXYCYCLINE 100MG/250ML 250 ML IV SCH ×2 (03:23→18:32)
[2020-03-02 05:06] VITALS: BP 117/46
[2020-03-02] MEDS: ONDANSETRON ODT 4 MG TAB PO SCH ×5 (05:32→23:50)
[2020-03-02] MEDS: methylPREDNISolone SOD SUCC 40 MG/ML VL IV SCH ×3 (05:32→22:05)
[2020-03-02] MEDS: LEVOTHYROXINE SODIUM 25 MCG TAB PO SCH (06:16)
[2020-03-02 07:48] LABS: Hematocrit 28.4 % (36.0-46.0); Hemoglobin 9.3 g/dL (12.2-16.2); Mean Corpuscular Hemoglobin 32.8 pg (28.0-32.0); Mean Corpuscular Hgb Conc. 32.8 g/dL (32.0-36.0); Mean Corpuscular Volume 99.9 fL (80.0-100.0); Platelet Count (auto) 318 10^3/uL (140-450); Red Blood Cells 2.84 10^6/uL (4.0-5.20); Red Cell Distribution Width 17.5 % (11.8-14.3)
[2020-03-02 07:50] LABS: INR 1.26 (0.9-1.15)
[2020-03-02 08:00] VITALS: BP 118/61
[2020-03-02] MEDS: NEUTRA-PHOS TABLET PO SCH ×3 (08:00→18:33)
[2020-03-02 08:16] LABS: Band Neutrophils % (manual) 0
[2020-03-02 08:17] LABS: Basophils % (manual) 0 (0.0-2.0); Blast Cells 0; Promyelocytes % 0; Reactive Lymphocytes 0
[2020-03-02 09:00] VITALS: BP 118/51
[2020-03-02 09:01] LABS: Eosinophils % (manual) 1 (0-7); Lymphocytes % (manual) 7 (10.0-50.0); Metamyelocytes % 3; Monocytes % (manual) 10 (0-12); Myelocytes % 5
[2020-03-02] MEDS: BUDESONIDE (INHALATION) 180 MCG IH IN SCH ×2 (10:00→18:51)
[2020-03-02] MEDS: LOSARTAN POTASSIUM 25 MG TAB PO SCH (10:00)
[2020-03-02] MEDS: FAMOTIDINE (10MG/ML) 2ML VL IV SCH ×2 (10:04→22:04)
[2020-03-02] MEDS: CHOLECALCIFEROL (VITD3) 2,000 UNIT CAP PO SCH (10:05)
[2020-03-02] MEDS: DOCUSATE SOD 100 MG CAP PO SCH ×2 (10:06→22:05)
[2020-03-02] MEDS: FOLIC ACID 1 MG TAB PO SCH (10:07)
[2020-03-02] MEDS: MULTIPLE VITAMIN TAB PO SCH (10:07)
[2020-03-02] MEDS: ASCORBIC ACID 1,000 MG TAB PO SCH (10:08)
[2020-03-02] MEDS: CYANOCOBALAMIN 500 MCG TAB PO SCH (10:08)
[2020-03-02] MEDS: MAGNESIUM OXIDE 400 MG TAB PO SCH ×2 (10:08→22:05)
--- NOTE | 2020-03-02 12:02 | NUR ---
D/C Planning Regarding social service consult for patient to resume service with [facility]. Faxed clinical information to [facility]. Placed follow up called to Dunia with [facility] advising her per MD Dr. Schreiber plan of discharge is for today. Dunia with [facility] provided me with patient step-hardik Angel and niece Glenny information and informed me she has been in contact with Glenny. Placed follow up call to Glenny who informed me patient efe-hardik Angel will be staying with patient and between both of them they will care for patient needs upon discharge day.
--- NOTE | 2020-03-02 12:41 | NUR ---
Contact patient step-daughter Jeanne at 12:40 who informed me she lives in [place] and will be staying with patient in [facility] and will be caring for patient 24hrs.
[2020-03-02 13:00] VITALS: BP 112/51
--- NOTE | 2020-03-02 14:13 | NUR ---
D/C planning Patient is no longer confused, spoke to patient in regards of discharge plan to resume hospice with [facility]. Informed patient step-daughter Jeanne is willing to care for her and stay with her 24hrs. Per patient she is in agreement and will also want her [facility] Roel to still be her caregiver. Informed patient I spoke to Roel and she is willing to resume care. Patient and Roel verbalize understanding d/c plan.
--- NOTE | 2020-03-02 14:39 | NUR ---
VANCO TROUGH Unable to obtain vanco trough after multiple attempts. Call placed to Alisa with pharmacy to clarify. Per Alisa, ok to give dose and vanco trough will be scheduled for tomorrow.
--- NOTE | 2020-03-02 15:30 | NUR ---
D/C planning Received a call from Dunia with [facility] advising me they where unable to deliver patient hospital bed today due to family not having access to patient home and the landlord will open the door tomorrow. Patient step-daughter Jeanne will arrived to patient home tomorrow. Transportation will be arranged upon d/c day. Pending discharge orders from .
[2020-03-02 17:00] VITALS: BP 125/44
[2020-03-02] MEDS ORDERED: WARFARIN SODIUM 5 MG TAB PO ONE (17:00)
[2020-03-02] MEDS: ALBUTEROL SULF HFA 90MCG INH 200DOSE IN PRN (18:51)
--- NOTE | 2020-03-02 19:40 | NUR ---
Opening Shift Note Assumed care of patient, awake and alert. No S/S of distress/SOB or pain. Instructed on POC and to call for assist PRN. Bed in lowest locked position, call light within reach, side rails upx2, fall precautions in place. Will continue to monitor for changes Q1hr and PRN.
[2020-03-02 22:00] VITALS: BP 102/60
[2020-03-03] MEDS: VANCOMYCIN 750mg/250ml 250 ML IV SCH (01:49)
[2020-03-03] MEDS: DOXYCYCLINE 100MG/250ML 250 ML IV SCH (03:31)
[2020-03-03 05:00] VITALS: BP 109/42
[2020-03-03] MEDS: BUDESONIDE (INHALATION) 180 MCG IH IN SCH (06:16)
[2020-03-03] MEDS: methylPREDNISolone SOD SUCC 40 MG/ML VL IV SCH (06:43)
[2020-03-03] MEDS: ONDANSETRON ODT 4 MG TAB PO SCH ×2 (06:43→12:00)
[2020-03-03] MEDS: LEVOTHYROXINE SODIUM 25 MCG TAB PO SCH (06:43)
--- NOTE | 2020-03-03 07:40 | NUR ---
OPENING NOTE Assumed care of patient from NOC RN. No s/s of distress noted. Bed is in lowest locked position, side rails up x2, and call light within reach. Updated patient on plan of care and patient verbalized understanding. Will continue to monitor q1hr and PRN.
[2020-03-03] MEDS: NEUTRA-PHOS TABLET PO SCH ×2 (08:00→12:00)
--- NOTE | 2020-03-03 08:30 | NUR ---
D/C Planning Received a follow up called from [facility] with [facility] bed will be deliver this morning. Transportation has been arranged for 12 noon via gurney with oxygen with [employer] transportation. Informed MYRTLE Hayes.
[2020-03-03] MEDS: ALBUTEROL SULF HFA 90MCG INH 200DOSE IN PRN (08:54)
[2020-03-03 09:00] VITALS: BP 124/57
--- NOTE | 2020-03-03 09:07 | NUR ---
call from social media sr strategy manager received call from meagan social media sr strategy manager, per Meagan patient will be picked up by [facility] at 12 today. Per meagan she spoke to attending MD and per MD spring he will be in to assess the patient prior to D/C. D/C order still pending.
--- NOTE | 2020-03-03 09:10 | NUR ---
Called Called Dr. Schreiber, left message. awaiting call back.
--- NOTE | 2020-03-03 09:15 | NUR ---
Call back Received call back from Dr. Schreiber, per MD patient is to have oswald removed prior to D/C. Will follow through.
--- NOTE | 2020-03-03 09:24 | NUR ---
Call from hospice received call from patients hospice regarding transport. Patient is set for pick up worker at 11am with [facility].
[2020-03-03] MEDS: FOLIC ACID 1 MG TAB PO SCH (10:06)
[2020-03-03] MEDS: FAMOTIDINE (10MG/ML) 2ML VL IV SCH (10:06)
[2020-03-03] MEDS: CYANOCOBALAMIN 500 MCG TAB PO SCH (10:07)
[2020-03-03] MEDS: DOCUSATE SOD 100 MG CAP PO SCH (10:07)
[2020-03-03] MEDS: CHOLECALCIFEROL (VITD3) 2,000 UNIT CAP PO SCH (10:07)
[2020-03-03] MEDS: ASCORBIC ACID 1,000 MG TAB PO SCH (10:07)
[2020-03-03] MEDS: MULTIPLE VITAMIN TAB PO SCH (10:07)
[2020-03-03] MEDS: MAGNESIUM OXIDE 400 MG TAB PO SCH (10:08)
[2020-03-03] MEDS: LOSARTAN POTASSIUM 25 MG TAB PO SCH (10:09)
--- NOTE | 2020-03-03 10:30 | NUR ---
Oswald catheter dc'd Order to discontinue oswald catheter. Oswald dc'd with clean technique following deflation of balloon. Patient tolerated well with no complaints of pain. Continue care.
--- NOTE | 2020-03-03 11:00 | NUR ---
physician rounding Dr. Schreiber at bedside. MD cleared patient for D/C and to remove midline. Will follow through.
--- NOTE | 2020-03-03 11:06 | NUR ---
Called executive candidate developer Notified Za to inform Swathi core measures abstractor that patients transport has been arranged for potato picker time between -12 today, but no D/C order has been placed. Informed her MD is aware of potato picker time and no D/C is in. Informed her that MD has rounded and stated D/C will be put in.
[2020-03-03 12:33] VITALS: BP 124/57
--- NOTE | 2020-03-03 12:59 | NUR ---
Discharge note Discharge instructions given as ordered. Encourage to follow up with hospice MD as instructed. All questions and concerns addressed. Patient verbalized understanding. Medication reconciliation form completed and copy given to patient. IV removed with catheter intact, pressure dressing applied, oswald catheter removed. Telemetry unit returned to ICU. Patient taken to vehicle via [place] with [employer], with all personal belongings, accompanied by self and transport team. Patient on hospice with [facility]. No distress noted at time of departure.
== END 2020-03-03 12:55 | disposition hospice, home (50) | DRG 177 ==
LOC: ER 12:39 → EDBD 12:39 → TELE 12:40 → TELE-CENTR 02-27 18:38 → TELE-EAST 02-28 15:44
PROVIDERS: ADMIT Internal Medicine; ATTEND Internal Medicine
PROC: 05HC33Z Insertion of Infusion Device into Left Basilic Vein, Percutaneous Approach (ICD-10-PCS; principal; 2020-02-27)
DX: U07.1 COVID-19 (principal); J12.89 Other viral pneumonia; J96.20 Acute and chronic respiratory failure, unspecified whether with hypoxia or hypercapnia; N17.0 Acute kidney failure with tubular necrosis; I21.A1 Myocardial infarction type 2; J44.1 Chronic obstructive pulmonary disease with (acute) exacerbation; I48.19 Other persistent atrial fibrillation; N39.0 Urinary tract infection, site not specified; J44.0 Chronic obstructive pulmonary disease with (acute) lower respiratory infection; R78.81 Bacteremia; R55 Syncope and collapse; I50.9 Heart failure, unspecified; R62.7 Adult failure to thrive; I11.0 Hypertensive heart disease with heart failure; M48.02 Spinal stenosis, cervical region; K80.50 Calculus of bile duct without cholangitis or cholecystitis without obstruction; E16.2 Hypoglycemia, unspecified; E03.9 Hypothyroidism, unspecified; K21.9 Gastro-esophageal reflux disease without esophagitis; K29.70 Gastritis, unspecified, without bleeding; M06.9 Rheumatoid arthritis, unspecified; D53.9 Nutritional anemia, unspecified; E21.3 Hyperparathyroidism, unspecified; G89.29 Other chronic pain; Z90.49 Acquired absence of other specified parts of digestive tract; Z88.0 Allergy status to penicillin; Z88.8 Allergy status to other drugs, medicaments and biological substances; Z79.01 Long term (current) use of anticoagulants; Z80.3 Family history of malignant neoplasm of breast; Z82.49 Family history of ischemic heart disease and other diseases of the circulatory system; Z83.3 Family history of diabetes mellitus; Z87.891 Personal history of nicotine dependence; Z99.81 Dependence on supplemental oxygen; Z82.3 Family history of stroke
CPT/HCPCS: 36415; 51702; 70450; 71045; 72125; 80048; 80202; 81001; 82962; 83735; 83880; 84100; 84484; 85007; 85025; 85027; 85379; 85610; 85730; 86141; 87040; 87077; 87086; 87186; 94640; 96361; 96374; G0378; J3490; Q0162

== ENCOUNTER 2020-06-15 15:16 | Inpatient (IN) | payer OTHER, MEDICAID ==
[~2020-06-15] VITALS: Ht 149.9 cm; Wt 59.3 kg
[~2020-06-15 15:16] MED LIST changes: -ALB5IS NEB; +CILO100T PO; -CILO50TA PO; +FERR-20 PO; -FLUT100M7 INH; +FLUT1AER6 IN; +FOLI1TAB6 PO; -FURO20TA3 PO; +FURO40TA4 PO; -HYDR-2035 PO; +HYDR12.56 PO; +IPRA0.00 NEB; -IPRASOL39 NEB; -Q-PAP PO; -VERA120T6 PO; +VERA240C2 PO; +WARF1TAB36 PO; -WARF2TAB49 PO
[2020-06-15 16:06] LABS: Basophils # (auto) 0 10 ^3/uL (0-0.2); Basophils % (auto) 0.4 % (0.0-2.0); Eosinophils # (auto) 0 10 ^3/uL (0-0.8); Eosinophils % (auto) 0.2 % (0.0-7.0); Hemoglobin 9.9 g/dL (12.2-16.2); Lymphocytes # (auto) 0.7 10 ^3/uL (0.4-5.4); Lymphocytes % (auto) 11.4 % (10.0-50.0); Mean Corpuscular Hemoglobin 31.2 pg (28.0-32.0); Mean Corpuscular Volume 94.4 fL (80.0-100.0); Monocytes # (auto) 0.4 10 ^3/uL (0-1.3); Monocytes % (auto) 6.3 % (0.0-12.0); Neutrophils # (auto) 5.3 10 ^3/uL (1.6-8.6); Neutrophils % (auto) 81.7 % (37.0-80.0); Platelet Count (auto) 388 10^3/uL (140-450); Red Blood Cells 3.18 10^6/uL (4.0-5.20); Red Cell Distribution Width 15.6 % (11.8-14.3); White Blood Cell 6.5 10^3/uL (4.4-10.8)
[2020-06-15 16:25] LABS: INR 1.88 (0.9-1.15); Partial Thromboplastin Time 38.4 sec (23.0-31.2)
[2020-06-15 16:26] LABS: Alanine Aminotransferase 25 U/L (13-56); Albumin 2.5 g/dL (3.4-5.0); Anion Gap 11 (5-15); Aspartate Aminotransferase 35 U/L (15-37); BUN/Creatinine Ratio 29.7; Blood Urea Nitrogen 19 mg/dL (7-18); Calcium 9.3 mg/dL (8.5-10.1); Carbon Dioxide 20 mmol/L (21-32); Chloride 107 mmol/L (98-107); GFR African American 117 mL/min; GFR Non-African American 96 mL/min; Glucose 82 mg/dL (74-106); Magnesium 1.9 mg/dL (1.6-2.6); Potassium 3.9 mmol/L (3.5-5.1); Sodium 138 mmol/L (136-145)
[2020-06-15 16:31] LABS: Alkaline Phosphatase 304 U/L (45-117); Bilirubin, Total 0.2 mg/dL (0.2-1.0); Total Protein 7.7 g/dL (6.4-8.2)
[2020-06-15] MEDS ORDERED: SODIUM CHLORIDE 0.9% 1,000 ML IV ONE (17:15)
[2020-06-15] MEDS ORDERED: SODIUM CHLORIDE 0.9% 1,000 ML IVB ONE (17:15)
[2020-06-15] MEDS ORDERED: ONDANSETRON HCL 4 MG/2 ML VIAL IV ONE ×3 (17:15→17:30)
[2020-06-15] MEDS ORDERED: NITROGLYCERIN 0.4 MG SL TAB SL PRN (19:45)
[2020-06-15] MEDS ORDERED: ONDANSETRON HCL 4 MG/2 ML VIAL IV PRN (19:45)
[2020-06-15] MEDS ORDERED: MORPHINE SULF INJ 2 MG/ML SYRINGE 1ML IV PRN ×2 (19:45)
[2020-06-15] MEDS: SODIUM CHLORIDE 0.9% 1,000 ML IV SCH (19:48)
[2020-06-15 22:12] LABS: Urine Bacteria NONE SEEN /hpf (None Seen); Urine Blood Negative /uL (Negative); Urine Hyaline Cast FEW /lpf (0 - 2); Urine Specific Gravity 1.014 (1.001-1.035); Urine WBC 2 /hpf (0 - 5)
[2020-06-15 22:52] VITALS: BP 123/79
[2020-06-16] MEDS: SODIUM CHLORIDE 0.9% 1,000 ML IV SCH ×3 (03:45→19:45)
[2020-06-16 07:00] VITALS: BP 130/78
[2020-06-16 09:00] VITALS: BP 124/60
[2020-06-16 13:01] VITALS: BP 120/53
[2020-06-16] MEDS ORDERED: GASTROGRAFIN 120 ML SOL ONE (14:39)
[2020-06-16 16:50] VITALS: BP 125/81
[2020-06-16 20:00] VITALS: BP 152/58
[2020-06-16 22:00] VITALS: BP 152/58
[2020-06-17] MEDS: SODIUM CHLORIDE 0.9% 1,000 ML IV SCH ×3 (03:45→21:07)
[2020-06-17 05:00] VITALS: BP 152/78
[2020-06-17 07:19] LABS: Basophils # (auto) 0 10 ^3/uL (0-0.2); Basophils % (auto) 0.8 % (0.0-2.0); Eosinophils # (auto) 0 10 ^3/uL (0-0.8); Eosinophils % (auto) 1.1 % (0.0-7.0); Hematocrit 31.1 % (36.0-46.0); Hemoglobin 10.5 g/dL (12.2-16.2); Lymphocytes # (auto) 1.3 10 ^3/uL (0.4-5.4); Lymphocytes % (auto) 28.2 % (10.0-50.0); Mean Corpuscular Hemoglobin 32.1 pg (28.0-32.0); Mean Corpuscular Hgb Conc. 33.7 g/dL (32.0-36.0); Mean Corpuscular Volume 95.3 fL (80.0-100.0); Monocytes # (auto) 0.4 10 ^3/uL (0-1.3); Monocytes % (auto) 7.8 % (0.0-12.0); Neutrophils # (auto) 2.8 10 ^3/uL (1.6-8.6); Neutrophils % (auto) 62.1 % (37.0-80.0); Nucleated Red Blood Cells % 0.1 %; Platelet Count (auto) 360 10^3/uL (140-450); Red Blood Cells 3.26 10^6/uL (4.0-5.20); Red Cell Distribution Width 14.9 % (11.8-14.3); White Blood Cell 4.5 10^3/uL (4.4-10.8)
[2020-06-17 07:39] LABS: Potassium 3.9 mmol/L (3.5-5.1)
[2020-06-17 07:49] LABS: Albumin 2.7 g/dL (3.4-5.0); BUN/Creatinine Ratio 32.6; Bilirubin, Total 0.3 mg/dL (0.2-1.0); Calcium 9.9 mg/dL (8.5-10.1); Total Protein 8.2 g/dL (6.4-8.2)
[2020-06-17 09:29] VITALS: BP 147/69
[2020-06-17 13:16] VITALS: BP 147/77
[2020-06-17 16:25] VITALS: BP 128/59
[2020-06-17 20:00] VITALS: BP 142/74
[2020-06-17 22:00] VITALS: BP 142/74
[2020-06-18 05:00] VITALS: BP 142/73
[2020-06-18] MEDS: SODIUM CHLORIDE 0.9% 1,000 ML IV SCH ×2 (05:41→11:45)
[2020-06-18 06:22] LABS: Albumin 2.2 g/dL (3.4-5.0); Anion Gap 8 (5-15); Blood Urea Nitrogen 12 mg/dL (7-18); Calcium 9.3 mg/dL (8.5-10.1); Carbon Dioxide 20 mmol/L (21-32); Chloride 109 mmol/L (98-107); Glucose 76 mg/dL (74-106); Potassium 4.2 mmol/L (3.5-5.1); Sodium 137 mmol/L (136-145)
[2020-06-18 06:24] LABS: Alanine Aminotransferase 20 U/L (13-56); Aspartate Aminotransferase 26 U/L (15-37); BUN/Creatinine Ratio 27.3; GFR African American 180 mL/min; GFR Non-African American 149 mL/min
[2020-06-18 06:26] LABS: Alkaline Phosphatase 240 U/L (45-117); Bilirubin, Total 0.2 mg/dL (0.2-1.0); Total Protein 6.9 g/dL (6.4-8.2)
[2020-06-18 08:47] VITALS: BP 147/96
[2020-06-18 12:38] VITALS: BP 126/53
[2020-06-18 14:17] VITALS: BP 126/53
== END 2020-06-18 15:50 | disposition home or self-care (01) | DRG 393 ==
LOC: ER 15:16 → EDBD 15:16 → TELE 19:40 → TELE-EAST 21:50
PROVIDERS: ADMIT Nurse Practitioner Acute Care; ATTEND Internal Medicine
PROC: 0D9670Z Drainage of Stomach with Drainage Device, Via Natural or Artificial Opening (ICD-10-PCS; principal; 2020-06-15)
DX: K43.6 Other and unspecified ventral hernia with obstruction, without gangrene (principal); E43 Unspecified severe protein-calorie malnutrition; J96.10 Chronic respiratory failure, unspecified whether with hypoxia or hypercapnia; Z20.822 Contact with and (suspected) exposure to COVID-19; D64.9 Anemia, unspecified; E78.5 Hyperlipidemia, unspecified; E03.9 Hypothyroidism, unspecified; I11.0 Hypertensive heart disease with heart failure; I50.9 Heart failure, unspecified; J44.9 Chronic obstructive pulmonary disease, unspecified; M19.90 Unspecified osteoarthritis, unspecified site; K21.9 Gastro-esophageal reflux disease without esophagitis; Z90.49 Acquired absence of other specified parts of digestive tract; Z90.89 Acquired absence of other organs; Z79.899 Other long term (current) drug therapy; Z80.9 Family history of malignant neoplasm, unspecified; Z87.891 Personal history of nicotine dependence; Z86.718 Personal history of other venous thrombosis and embolism; Z79.01 Long term (current) use of anticoagulants; Z79.02 Long term (current) use of antithrombotics/antiplatelets; Z88.0 Allergy status to penicillin; Z86.16 Personal history of COVID-19; Z88.8 Allergy status to other drugs, medicaments and biological substances; Z83.3 Family history of diabetes mellitus; Z82.3 Family history of stroke; Z82.49 Family history of ischemic heart disease and other diseases of the circulatory system; Z99.81 Dependence on supplemental oxygen; Z68.25 Body mass index [BMI] 25.0-25.9, adult
CPT/HCPCS: 36415; 71045; 74176; 74250; 78306; 80053; 81001; 83605; 83615; 83735; 84443; 84484; 85025; 85610; 85730; 87040; 87426; 93005; 96361; 96374; 97116; 97163; 97530; G0378; J2405

== ENCOUNTER 2020-08-30 15:40 | Emergency (ER) | payer OTHER, MEDICAID ==
[~2020-08-30] VITALS: Ht 162.6 cm; Wt 77.1 kg
[2020-08-30] MEDS ORDERED: CLINDAMYCIN 600MG IV 50 ML IV ONE (16:15)
[2020-08-30 18:47] LABS: Basophils # (auto) 0 10 ^3/uL (0-0.2); Eosinophils # (auto) 0.1 10 ^3/uL (0-0.8); Eosinophils % (auto) 2.1 % (0.0-7.0); Lymphocytes # (auto) 1.1 10 ^3/uL (0.4-5.4); Monocytes # (auto) 0 10 ^3/uL (0-1.3); Neutrophils # (auto) 1.3 10 ^3/uL (1.6-8.6); Neutrophils % (auto) 52.4 % (37.0-80.0)
[2020-08-30 18:49] LABS: Basophils % (auto) 0.2 % (0.0-2.0); Mean Corpuscular Hemoglobin 32.1 pg (28.0-32.0); Mean Corpuscular Hgb Conc. 34.9 g/dL (32.0-36.0); Mean Corpuscular Volume 91.9 fL (80.0-100.0); Monocytes % (auto) 1.3 % (0.0-12.0); Nucleated Red Blood Cells % 0.2 %; Platelet Count (auto) 21 10^3/uL (140-450); Red Cell Distribution Width 15.9 % (11.8-14.3); White Blood Cell 2.4 10^3/uL (4.4-10.8)
[2020-08-30 19:03] LABS: INR 3.14 (0.9-1.15); Partial Thromboplastin Time 49.1 sec (23.0-31.2)
[2020-08-30 19:05] LABS: Alanine Aminotransferase 16 U/L (13-56); Albumin 2.9 g/dL (3.4-5.0); Anion Gap 6 (5-15); BUN/Creatinine Ratio 44.9; Blood Urea Nitrogen 35 mg/dL (7-18); Calcium 9.8 mg/dL (8.5-10.1); Carbon Dioxide 26 mmol/L (21-32); Chloride 105 mmol/L (98-107); GFR African American 93 mL/min; GFR Non-African American 77 mL/min; Glucose 70 mg/dL (74-106); Potassium 3.7 mmol/L (3.5-5.1); Sodium 137 mmol/L (136-145)
[2020-08-30 19:10] LABS: Alkaline Phosphatase 119 U/L (45-117); Aspartate Aminotransferase 21 U/L (15-37); Bilirubin, Total 0.4 mg/dL (0.2-1.0); Total Protein 7.8 g/dL (6.4-8.2)
[2020-08-30 23:00] VITALS: BP 142/81
== END 2020-08-31 00:38 | disposition home or self-care (01) ==
LOC: ER 15:40 → EDBD 15:40 → ER 08-31 00:38
DX: S01.501A Unspecified open wound of lip, initial encounter (principal); K05.10 Chronic gingivitis, plaque induced; I11.0 Hypertensive heart disease with heart failure; I50.9 Heart failure, unspecified; K21.9 Gastro-esophageal reflux disease without esophagitis; Z90.49 Acquired absence of other specified parts of digestive tract; Z79.899 Other long term (current) drug therapy; Z88.0 Allergy status to penicillin; Z20.822 Contact with and (suspected) exposure to COVID-19; X58.XXXA Exposure to other specified factors, initial encounter; Y93.89 Activity, other specified; Y92.89 Other specified places as the place of occurrence of the external cause; Y99.8 Other external cause status
CPT/HCPCS: 36415; 70486; 80053; 83605; 83880; 84484; 85025; 85610; 85730; 87426; 96365; 99285; J3490

== ENCOUNTER 2020-12-18 18:04 | Inpatient (IN) | payer OTHER, MEDICAID ==
[~2020-12-18] VITALS: Ht 149.9 cm; Wt 73.0 kg
[2020-12-18] MEDS ORDERED: fentaNYL CITRATE 100 MCG/2 ML VL IV ONE (19:45)
[2020-12-18] MEDS ORDERED: ONDANSETRON HCL 4 MG/2 ML VIAL IV ONE (19:45)
[2020-12-18] MEDS ORDERED: SODIUM CHLORIDE 0.9% 250 ML IV ONE (19:45)
[2020-12-18 22:02] LABS: Basophils # (auto) 0 10 ^3/uL (0-0.2); Basophils % (auto) 0.1 % (0.0-2.0); Eosinophils # (auto) 0 10 ^3/uL (0-0.8); Eosinophils % (auto) 0.2 % (0.0-7.0); Hematocrit 34.3 % (36.0-46.0); Hemoglobin 11.1 g/dL (12.2-16.2); Lymphocytes # (auto) 0.4 10 ^3/uL (0.4-5.4); Lymphocytes % (auto) 10.8 % (10.0-50.0); Mean Corpuscular Hemoglobin 31.7 pg (28.0-32.0); Mean Corpuscular Hgb Conc. 32.4 g/dL (32.0-36.0); Mean Corpuscular Volume 98.1 fL (80.0-100.0); Monocytes # (auto) 0.4 10 ^3/uL (0-1.3); Monocytes % (auto) 9.4 % (0.0-12.0); Neutrophils # (auto) 3.2 10 ^3/uL (1.6-8.6); Neutrophils % (auto) 79.5 % (37.0-80.0); Red Blood Cells 3.49 10^6/uL (4.0-5.20)
[2020-12-18 22:22] LABS: Albumin 3.1 g/dL (3.4-5.0); Anion Gap 8 (5-15); BUN/Creatinine Ratio 28.2; Blood Urea Nitrogen 24 mg/dL (7-18); Carbon Dioxide 22 mmol/L (21-32); Chloride 108 mmol/L (98-107); GFR African American 84 mL/min; GFR Non-African American 69 mL/min; Glucose 198 mg/dL (74-106); Lipase 109 U/L (73-393); Magnesium 2.2 mg/dL (1.6-2.6); Potassium 3.7 mmol/L (3.5-5.1); Sodium 138 mmol/L (136-145)
[2020-12-18 22:31] LABS: Alanine Aminotransferase 23 U/L (13-56); Alkaline Phosphatase 214 U/L (45-117); Aspartate Aminotransferase 15 U/L (15-37); Bilirubin, Total 0.2 mg/dL (0.2-1.0); Total Protein 8.8 g/dL (6.4-8.2)
[2020-12-18 22:33] LABS: INR 0.98 (0.9-1.15)
[2020-12-18] MEDS ORDERED: IOHEXOL 300 MG/ML 100ML BOTTLE IJ ONE (22:54)
[2020-12-19] MEDS ORDERED: NITROGLYCERIN 0.4 MG SL TAB SL PRN (09:30)
[2020-12-19] MEDS ORDERED: LABETALOL HCL 5 MG/ML 4ML SYRINGE IV PRN (09:30)
[2020-12-19] MEDS ORDERED: MORPHINE SULFATE INJECTION 2 MG/ML SYRG IV PRN ×2 (09:30)
[2020-12-19] MEDS ORDERED: ONDANSETRON HCL 4 MG/2 ML VIAL IV PRN (09:30)
[2020-12-19] MEDS ORDERED: GASTROGRAFIN 120 ML SOL ONE (09:44)
[2020-12-19] MEDS ORDERED: IPRATROPIUM BROM 0.5 MG/2.5ML INH SOL NEB PRN (10:00)
[2020-12-19] MEDS ORDERED: ALBUTEROL SULF 2.5 MG/0.5ML(0.5%) NEB SOLN NEB PRN (10:00)
[2020-12-19] MEDS: PANTOPRAZOLE 40 MG/10 ML VIAL INJ IV SCH (11:20)
[2020-12-19] MEDS: D5W/SOD CHL 0.45%/KCL 20MEQ 1,000 ML IV SCH ×2 (11:44→19:30)
[2020-12-19] MEDS: IPRATROPIUM BROM 0.5 MG/2.5ML INH SOL NEB SCH ×2 (11:50→19:16)
[2020-12-19] MEDS: ALBUTEROL SULF 2.5 MG/0.5ML(0.5%) NEB SOLN NEB SCH ×2 (11:50→19:16)
[2020-12-19] MEDS: BUDESONIDE (INHALATION) 0.5 MG/2 ML NEB NEB SCH (19:16)
[2020-12-19 22:00] VITALS: BP 158/68
[2020-12-19] MEDS ORDERED: CHOL20007 PO (22:04)
[2020-12-19] MEDS ORDERED: OMEP20TA PO (22:04)
[2020-12-19] MEDS ORDERED: MAGN400T40 PO (22:04)
[2020-12-19] MEDS ORDERED: APIX2.5T PO (22:04)
[2020-12-19] MEDS ORDERED: IRBE300T43 PO (22:04)
[2020-12-19] MEDS ORDERED: CYA100I (22:05)
[2020-12-19] MEDS ORDERED: ASCO500T11 PO (22:05)
[2020-12-20 00:47] VITALS: BP 158/68
[2020-12-20 05:00] VITALS: BP 137/57
[2020-12-20] MEDS: D5W/SOD CHL 0.45%/KCL 20MEQ 1,000 ML IV SCH ×2 (05:30→15:30)
[2020-12-20] MEDS: IPRATROPIUM BROM 0.5 MG/2.5ML INH SOL NEB SCH ×3 (06:34→19:07)
[2020-12-20] MEDS: BUDESONIDE (INHALATION) 0.5 MG/2 ML NEB NEB SCH ×2 (06:34→19:07)
[2020-12-20] MEDS: ALBUTEROL SULF 2.5 MG/0.5ML(0.5%) NEB SOLN NEB SCH ×3 (06:34→19:07)
[2020-12-20 06:44] LABS: Basophils # (auto) 0 10 ^3/uL (0-0.2); Basophils % (auto) 0.1 % (0.0-2.0); Eosinophils # (auto) 0 10 ^3/uL (0-0.8); Eosinophils % (auto) 0.2 % (0.0-7.0); Hemoglobin 8.1 g/dL (12.2-16.2); Monocytes # (auto) 0.6 10 ^3/uL (0-1.3); Red Blood Cells 2.48 10^6/uL (4.0-5.20); White Blood Cell 6.5 10^3/uL (4.4-10.8)
[2020-12-20 06:46] LABS: Hematocrit 24.4 % (36.0-46.0); Lymphocytes # (auto) 0.8 10 ^3/uL (0.4-5.4); Lymphocytes % (auto) 12.9 % (10.0-50.0); Mean Corpuscular Hemoglobin 32.6 pg (28.0-32.0); Mean Corpuscular Hgb Conc. 33.1 g/dL (32.0-36.0); Mean Corpuscular Volume 98.5 fL (80.0-100.0); Monocytes % (auto) 9.5 % (0.0-12.0); Neutrophils % (auto) 77.3 % (37.0-80.0); Red Cell Distribution Width 17.4 % (11.8-14.3)
[2020-12-20 07:02] LABS: Albumin 2.4 g/dL (3.4-5.0); Calcium 9.5 mg/dL (8.5-10.1)
[2020-12-20 07:05] LABS: BUN/Creatinine Ratio 32.9; Bilirubin, Total 0.3 mg/dL (0.2-1.0); Total Protein 6.5 g/dL (6.4-8.2)
[2020-12-20 07:16] LABS: INR 1.08 (0.9-1.15)
[2020-12-20 07:25] LABS: Partial Thromboplastin Time > 139.0 sec (23.6-33.0)
[2020-12-20 09:00] VITALS: BP 131/58
[2020-12-20] MEDS: PANTOPRAZOLE 40 MG/10 ML VIAL INJ IV SCH (10:33)
[2020-12-20 13:00] VITALS: BP 123/57
[2020-12-20 17:00] VITALS: BP 125/53
[2020-12-20 19:34] VITALS: BP 120/72
== END 2020-12-20 21:15 | disposition home or self-care (01) | DRG 388 ==
LOC: ER 18:04 → EDBD 18:04 → EDUNIT# 18:04 → TELE 12-19 09:18 → TELE-WESTW 12-19 21:02
PROVIDERS: ADMIT Nurse Practitioner Acute Care; ATTEND Family Medicine
PROC: 05H933Z Insertion of Infusion Device into Right Brachial Vein, Percutaneous Approach (ICD-10-PCS; principal; 2020-12-19)
PROC: B54MZZA Ultrasonography of Right Upper Extremity Veins, Guidance (ICD-10-PCS; 2020-12-19)
DX: K56.609 Unspecified intestinal obstruction, unspecified as to partial versus complete obstruction (principal); J96.20 Acute and chronic respiratory failure, unspecified whether with hypoxia or hypercapnia; J44.9 Chronic obstructive pulmonary disease, unspecified; E66.9 Obesity, unspecified; E88.09 Other disorders of plasma-protein metabolism, not elsewhere classified; I11.0 Hypertensive heart disease with heart failure; I50.9 Heart failure, unspecified; Z20.822 Contact with and (suspected) exposure to COVID-19; K21.9 Gastro-esophageal reflux disease without esophagitis; Z79.02 Long term (current) use of antithrombotics/antiplatelets; Z82.3 Family history of stroke; Z82.49 Family history of ischemic heart disease and other diseases of the circulatory system; Z83.3 Family history of diabetes mellitus; Z86.718 Personal history of other venous thrombosis and embolism; Z87.891 Personal history of nicotine dependence; Z99.81 Dependence on supplemental oxygen; Z88.0 Allergy status to penicillin; Z88.8 Allergy status to other drugs, medicaments and biological substances; Z90.49 Acquired absence of other specified parts of digestive tract; Z68.32 Body mass index [BMI] 32.0-32.9, adult
CPT/HCPCS: 36415; 74176; 80053; 83605; 83615; 83690; 83735; 83880; 84484; 85025; 85610; 85730; 87040; 87426; 93005; 94640; 96361; 96374; 96375; C9113; G0378; J2405; J3490

== ENCOUNTER 2021-10-24 14:44 | Inpatient (IN) | payer OTHER, MEDICAID ==
[~2021-10-24] VITALS: Ht 160 cm; Wt 76.8 kg
[~2021-10-24 14:44] MED LIST changes: +APIX2.5T PO; +ASCO500T11 PO; +CHOL20007 PO; +CYA100I; +IRBE300T43 PO; +MAGN400T40 PO; +OMEP20TA PO
[2021-10-24 16:13] LABS: Calcium 9.4 mg/dL (8.5-10.1); Potassium 4.6 mmol/L (3.5-5.1)
[2021-10-24] MEDS ORDERED: NITROGLYCERIN 0.4 MG SL TAB SL ONE (16:15)
[2021-10-24] MEDS ORDERED: ASPirin 81 mg TAB PO ONE (16:15)
[2021-10-24 16:20] LABS: Albumin 2.9 g/dL (3.4-5.0); BUN/Creatinine Ratio 33.3; Bilirubin, Total 0.4 mg/dL (0.2-1.0)
[2021-10-24 16:29] LABS: Basophils # (auto) 0 10 ^3/uL (0-0.2); Basophils % (auto) 0.7 % (0.0-2.0); Eosinophils # (auto) 0.1 10 ^3/uL (0-0.8); Eosinophils % (auto) 1.4 % (0.0-7.0); Hematocrit 36.2 % (36.0-46.0); Hemoglobin 11.7 g/dL (12.2-16.2); Lymphocytes # (auto) 1.6 10 ^3/uL (0.4-5.4); Lymphocytes % (auto) 24.5 % (10.0-50.0); Mean Corpuscular Hemoglobin 30.7 pg (28.0-32.0); Mean Corpuscular Hgb Conc. 32.2 g/dL (32.0-36.0); Mean Corpuscular Volume 95.2 fL (80.0-100.0); Monocytes # (auto) 0.7 10 ^3/uL (0-1.3); Neutrophils # (auto) 4.2 10 ^3/uL (1.6-8.6); Neutrophils % (auto) 62.4 % (37.0-80.0); Nucleated Red Blood Cells % 0.1 %; Red Cell Distribution Width 15.7 % (11.8-14.3); White Blood Cell 6.7 10^3/uL (4.4-10.8)
[2021-10-24] MEDS ORDERED: DOCUSATE SOD 100 MG CAP PO PRN (19:30)
[2021-10-24] MEDS ORDERED: HYDROcodone-ACET 5/325MG TAB PO PRN (19:45)
[2021-10-24 21:22] LABS: Urine Bacteria NONE SEEN /hpf (None Seen); Urine Blood Negative /uL (Negative); Urine Specific Gravity 1.019 (1.001-1.035); Urine WBC 2 /hpf (0 - 5)
[2021-10-25] MEDS: ONDANSETRON HCL 4 MG/2 ML VIAL IV PRN (05:11)
[2021-10-25 06:11] LABS: Anion Gap 10 (5-15); Blood Urea Nitrogen 19 mg/dL (7-18); Carbon Dioxide 21 mmol/L (21-32); Chloride 108 mmol/L (98-107); Glucose 75 mg/dL (74-106); Potassium 4.4 mmol/L (3.5-5.1); Sodium 139 mmol/L (136-145)
[2021-10-25 06:12] LABS: Alanine Aminotransferase 34 U/L (13-56); Aspartate Aminotransferase 36 U/L (15-37); BUN/Creatinine Ratio 27.9; GFR African American 108 mL/min; GFR Non-African American 89 mL/min
[2021-10-25 06:15] LABS: Alkaline Phosphatase 118 U/L (45-117); Bilirubin, Total 0.6 mg/dL (0.2-1.0)
[2021-10-25 07:37] LABS: Basophils # (auto) 0 10 ^3/uL (0-0.2); Basophils % (auto) 0.3 % (0.0-2.0); Eosinophils # (auto) 0.1 10 ^3/uL (0-0.8); Eosinophils % (auto) 1.2 % (0.0-7.0); Hematocrit 34.3 % (36.0-46.0); Lymphocytes # (auto) 0.7 10 ^3/uL (0.4-5.4); Lymphocytes % (auto) 10.2 % (10.0-50.0); Mean Corpuscular Hemoglobin 30.7 pg (28.0-32.0); Mean Corpuscular Hgb Conc. 32.2 g/dL (32.0-36.0); Mean Corpuscular Volume 95.3 fL (80.0-100.0); Monocytes # (auto) 0.7 10 ^3/uL (0-1.3); Neutrophils # (auto) 5.6 10 ^3/uL (1.6-8.6); Neutrophils % (auto) 78.3 % (37.0-80.0); Red Cell Distribution Width 15.4 % (11.8-14.3); White Blood Cell 7.2 10^3/uL (4.4-10.8)
[2021-10-25 09:00] VITALS: BP 123/57
[2021-10-25] MEDS ORDERED: ENOXAPARIN SOD 40 MG/0.4 ML SYRINGE SC SCH (10:00)
[2021-10-25 11:28] VITALS: BP 123/57
[2021-10-25 13:00] VITALS: BP 116/51
[2021-10-25] MEDS ORDERED: PANTOPRAZOLE 40 MG TAB PO ONE (14:30)
[2021-10-25] MEDS ORDERED: LEVOTHYROXINE SODIUM 25 MCG TAB PO ONE (14:30)
[2021-10-25 17:00] VITALS: BP_SYST 111; BP_SYST 139; BP_DIAS 46; BP_DIAS 79
[2021-10-25] MEDS: APIXABAN 2.5 MG TAB PO SCH (21:25)
[2021-10-25] MEDS: DOCUSATE SOD 100 MG CAP PO SCH (21:25)
[2021-10-25 22:31] VITALS: BP 120/56
[2021-10-26 05:31] VITALS: BP 133/53
[2021-10-26] MEDS: LEVOTHYROXINE SODIUM 25 MCG TAB PO SCH (06:37)
[2021-10-26 08:30] VITALS: BP 104/37
[2021-10-26] MEDS: APIXABAN 2.5 MG TAB PO SCH (09:57)
[2021-10-26] MEDS: DOCUSATE SOD 100 MG CAP PO SCH ×2 (09:57→21:26)
[2021-10-26] MEDS: PANTOPRAZOLE 40 MG TAB PO SCH (09:57)
[2021-10-26 13:00] VITALS: BP 123/48
[2021-10-26 17:00] VITALS: BP 138/43
[2021-10-26] MEDS: ENOXAPARIN SOD 100 MG/1 ML SYRINGE SC SCH (21:27)
[2021-10-26 22:00] VITALS: BP 102/48
[2021-10-27 05:00] VITALS: BP 130/50
[2021-10-27] MEDS: LEVOTHYROXINE SODIUM 25 MCG TAB PO SCH (06:38)
[2021-10-27] MEDS ORDERED: REGADENOSON 0.4 MG/5 ML SYRG IV ONE ×2 (08:15→11:41)
[2021-10-27 09:00] VITALS: BP 150/46
[2021-10-27] MEDS: DOCUSATE SOD 100 MG CAP PO SCH ×2 (10:00→22:05)
[2021-10-27] MEDS: PANTOPRAZOLE 40 MG TAB PO SCH (11:02)
[2021-10-27] MEDS: ENOXAPARIN SOD 100 MG/1 ML SYRINGE SC SCH ×2 (11:02→22:06)
[2021-10-27 13:25] VITALS: BP 130/50
[2021-10-27 17:00] VITALS: BP 144/50
[2021-10-27] MEDS: IPRATROPIUM BROM 0.5 MG/2.5ML INH SOL NEB SCH (17:58)
[2021-10-27 22:00] VITALS: BP 123/48
[2021-10-28 05:00] VITALS: BP 139/48
[2021-10-28] MEDS: IPRATROPIUM BROM 0.5 MG/2.5ML INH SOL NEB SCH ×3 (06:00→18:58)
[2021-10-28] MEDS: LEVOTHYROXINE SODIUM 25 MCG TAB PO SCH (06:29)
[2021-10-28 09:00] VITALS: BP 112/40
[2021-10-28] MEDS: PANTOPRAZOLE 40 MG TAB PO SCH (09:28)
[2021-10-28] MEDS: ENOXAPARIN SOD 100 MG/1 ML SYRINGE SC SCH ×2 (09:28→23:48)
[2021-10-28] MEDS: DOCUSATE SOD 100 MG CAP PO SCH ×3 (09:28→23:48)
[2021-10-28 13:00] VITALS: BP 117/48
[2021-10-29 01:34] VITALS: BP 111/44
[2021-10-29 04:41] VITALS: BP 145/81
[2021-10-29] MEDS: LEVOTHYROXINE SODIUM 25 MCG TAB PO SCH (06:23)
[2021-10-29] MEDS: IPRATROPIUM BROM 0.5 MG/2.5ML INH SOL NEB SCH ×4 (06:43→19:04)
[2021-10-29 09:00] VITALS: BP 116/44
[2021-10-29] MEDS: PANTOPRAZOLE 40 MG TAB PO SCH (09:27)
[2021-10-29] MEDS: DOCUSATE SOD 100 MG CAP PO SCH ×2 (09:28→22:03)
[2021-10-29] MEDS: ENOXAPARIN SOD 100 MG/1 ML SYRINGE SC SCH ×2 (09:30→22:03)
[2021-10-29] MEDS ORDERED: CYAN100T7 PO (12:22)
[2021-10-29] MEDS ORDERED: IRBE75TA10 PO (12:22)
[2021-10-29 13:00] VITALS: BP 127/47
[2021-10-29 17:16] VITALS: BP_SYST 130; BP_SYST 145; BP_DIAS 60; BP_DIAS 90
[2021-10-29 22:00] VITALS: BP 128/52
[2021-10-30] VITALS (9 sets, daily range): BP systolic 120–153; BP diastolic 50–94
[2021-10-30 05:27] LABS: Basophils # (auto) 0 10 ^3/uL (0-0.2); Basophils % (auto) 0.6 % (0.0-2.0); Eosinophils # (auto) 0.1 10 ^3/uL (0-0.8); Eosinophils % (auto) 3.3 % (0.0-7.0); Hematocrit 33.4 % (36.0-46.0); Lymphocytes # (auto) 1.7 10 ^3/uL (0.4-5.4); Lymphocytes % (auto) 43.1 % (10.0-50.0); Mean Corpuscular Hemoglobin 31.9 pg (28.0-32.0); Mean Corpuscular Hgb Conc. 32.9 g/dL (32.0-36.0); Monocytes # (auto) 0.5 10 ^3/uL (0-1.3); Monocytes % (auto) 13.1 % (0.0-12.0); Neutrophils # (auto) 1.6 10 ^3/uL (1.6-8.6); Neutrophils % (auto) 39.9 % (37.0-80.0); Nucleated Red Blood Cells % 0.2 %; Red Blood Cells 3.45 10^6/uL (4.0-5.20); Red Cell Distribution Width 15.3 % (11.8-14.3)
[2021-10-30 05:42] LABS: Calcium 9.5 mg/dL (8.5-10.1)
[2021-10-30 05:46] LABS: BUN/Creatinine Ratio 27.2
[2021-10-30] MEDS: LEVOTHYROXINE SODIUM 25 MCG TAB PO SCH (06:22)
[2021-10-30] MEDS: IPRATROPIUM BROM 0.5 MG/2.5ML INH SOL NEB SCH ×4 (06:54→18:42)
[2021-10-30] MEDS ORDERED: IODIXANOL 320MG/ML 100ML BTL IV ONE (07:14)
[2021-10-30] MEDS ORDERED: VANCOMYCIN HCL 1000 MG VL ONE ×2 (07:42→11:37)
[2021-10-30] MEDS ORDERED: fentaNYL CITRATE 100 MCG/2 ML VL ONE ×3 (07:42→11:11)
[2021-10-30] MEDS ORDERED: LIDOCAINE 2%HCL (LOCAL ANESTH.) INJ 20ML MDV ONE (07:43)
[2021-10-30] MEDS ORDERED: MIDAZOLAM HCL 2MG/2ML 2ml VIAL (1mg/ml) ONE ×3 (07:43→11:11)
[2021-10-30] MEDS ORDERED: VANCOMYCIN 1GM/250ML 250 ML IV ONE (07:43)
[2021-10-30] MEDS: DOCUSATE SOD 100 MG CAP PO SCH ×2 (10:00→21:08)
[2021-10-30] MEDS ORDERED: ceFAZolin 1GM/50ML 50 ML IV ONE (11:35)
[2021-10-30] MEDS: PANTOPRAZOLE 40 MG TAB PO SCH (14:24)
[2021-10-30] MEDS: ONDANSETRON HCL 4 MG/2 ML VIAL IV PRN (14:25)
[2021-10-30] MEDS: MORPHINE SULFATE INJ 2 MG/ml SYRG IV PRN (14:33)
[2021-10-31 05:54] LABS: Basophils # (auto) 0 10 ^3/uL (0-0.2); Basophils % (auto) 0.3 % (0.0-2.0); Eosinophils # (auto) 0.1 10 ^3/uL (0-0.8); Eosinophils % (auto) 0.8 % (0.0-7.0); Hematocrit 35.7 % (36.0-46.0); Hemoglobin 11.5 g/dL (12.2-16.2); Lymphocytes % (auto) 11.6 % (10.0-50.0); Mean Corpuscular Hemoglobin 30.7 pg (28.0-32.0); Mean Corpuscular Hgb Conc. 32.3 g/dL (32.0-36.0); Mean Corpuscular Volume 95.1 fL (80.0-100.0); Monocytes # (auto) 0.6 10 ^3/uL (0-1.3); Monocytes % (auto) 7.2 % (0.0-12.0); Neutrophils # (auto) 6.8 10 ^3/uL (1.6-8.6); Neutrophils % (auto) 80.1 % (37.0-80.0); Red Blood Cells 3.75 10^6/uL (4.0-5.20); Red Cell Distribution Width 15.1 % (11.8-14.3); White Blood Cell 8.5 10^3/uL (4.4-10.8)
[2021-10-31 06:15] LABS: Calcium 9.4 mg/dL (8.5-10.1); Potassium 4.3 mmol/L (3.5-5.1)
[2021-10-31 06:18] LABS: BUN/Creatinine Ratio 22.2
[2021-10-31] MEDS: LEVOTHYROXINE SODIUM 25 MCG TAB PO SCH (06:25)
[2021-10-31] MEDS: IPRATROPIUM BROM 0.5 MG/2.5ML INH SOL NEB SCH ×2 (06:43→11:16)
[2021-10-31] MEDS: PANTOPRAZOLE 40 MG TAB PO SCH (08:41)
[2021-10-31] MEDS: DOCUSATE SOD 100 MG CAP PO SCH (08:42)
[2021-10-31] MEDS: ONDANSETRON HCL 4 MG/2 ML VIAL IV PRN (08:42)
[2021-10-31] MEDS: MORPHINE SULFATE INJ 2 MG/ml SYRG IV PRN (08:51)
[2021-10-31 09:00] VITALS: BP 112/58
[2021-10-31] MEDS ORDERED: cefTRIAXone 1GM/50ML D5W 50 ML IV SCH (09:00)
[2021-10-31] MEDS ORDERED: APIXABAN 5 MG TAB PO SCH (10:00)
[2021-10-31 13:00] VITALS: BP 132/71
== END 2021-10-31 17:50 | disposition home or self-care (01) | DRG 243 ==
LOC: ER 14:44 → TELE 19:24 → TELE-EAST 10-25 08:33
PROVIDERS: ADMIT Internal Medicine; ATTEND Internal Medicine
PROC: 0JH606Z Insertion of Pacemaker, Dual Chamber into Chest Subcutaneous Tissue and Fascia, Open Approach (ICD-10-PCS; principal; 2021-10-30)
PROC: 02H63JZ Insertion of Pacemaker Lead into Right Atrium, Percutaneous Approach (ICD-10-PCS; 2021-10-30)
PROC: 02WA0MZ Revision of Cardiac Lead in Heart, Open Approach (ICD-10-PCS; 2021-10-30)
PROC: 02HK3JZ Insertion of Pacemaker Lead into Right Ventricle, Percutaneous Approach (ICD-10-PCS; 2021-10-30)
DX: I49.5 Sick sinus syndrome (principal); J96.10 Chronic respiratory failure, unspecified whether with hypoxia or hypercapnia; J44.9 Chronic obstructive pulmonary disease, unspecified; E66.9 Obesity, unspecified; E03.9 Hypothyroidism, unspecified; K21.9 Gastro-esophageal reflux disease without esophagitis; M19.90 Unspecified osteoarthritis, unspecified site; I48.0 Paroxysmal atrial fibrillation; Z20.822 Contact with and (suspected) exposure to COVID-19; I11.0 Hypertensive heart disease with heart failure; I50.9 Heart failure, unspecified; Z82.49 Family history of ischemic heart disease and other diseases of the circulatory system; Z83.3 Family history of diabetes mellitus; Z86.718 Personal history of other venous thrombosis and embolism; Z79.01 Long term (current) use of anticoagulants; Z79.02 Long term (current) use of antithrombotics/antiplatelets; Z68.31 Body mass index [BMI] 31.0-31.9, adult; Z87.891 Personal history of nicotine dependence; Z82.3 Family history of stroke; Z79.899 Other long term (current) drug therapy; Z88.0 Allergy status to penicillin; Z88.8 Allergy status to other drugs, medicaments and biological substances; Z90.49 Acquired absence of other specified parts of digestive tract
CPT/HCPCS: 33208; 36415; 71045; 78452; 80048; 80053; 81001; 83735; 84443; 84484; 85025; 85049; 87070; 87077; 87186; 87205; 93005; 93017; 93306; 94640; 96374; 99152; 99153; 99291; C1785; G0378; J0690; J0696; J2250; J2405; Q9967

== ENCOUNTER 2021-11-03 18:31 | Inpatient (IN) | payer OTHER, MEDICAID ==
[~2021-11-03] VITALS: Ht 165.1 cm; Wt 76.8 kg
[~2021-11-03 18:31] MED LIST changes: +CYAN100T7 PO; +IRBE75TA10 PO
[2021-11-03 20:19] LABS: Basophils # (auto) 0 10 ^3/uL (0-0.2); Basophils % (auto) 0.2 % (0.0-2.0); Eosinophils # (auto) 0.1 10 ^3/uL (0-0.8); Eosinophils % (auto) 0.9 % (0.0-7.0); Hematocrit 39.4 % (36.0-46.0); Hemoglobin 12.5 g/dL (12.2-16.2); Lymphocytes # (auto) 0.5 10 ^3/uL (0.4-5.4); Lymphocytes % (auto) 6.3 % (10.0-50.0); Mean Corpuscular Hemoglobin 30.4 pg (28.0-32.0); Mean Corpuscular Hgb Conc. 31.6 g/dL (32.0-36.0); Mean Corpuscular Volume 96.2 fL (80.0-100.0); Monocytes # (auto) 0.6 10 ^3/uL (0-1.3); Monocytes % (auto) 7.9 % (0.0-12.0); Neutrophils # (auto) 6.8 10 ^3/uL (1.6-8.6); Neutrophils % (auto) 84.7 % (37.0-80.0); Red Cell Distribution Width 15.4 % (11.8-14.3)
[2021-11-03 20:26] LABS: Albumin 3.3 g/dL (3.4-5.0); BUN/Creatinine Ratio 41.5; Calcium 10.2 mg/dL (8.5-10.1); Magnesium 2.4 mg/dL (1.6-2.6); Potassium 4.6 mmol/L (3.5-5.1)
[2021-11-03 20:28] LABS: Bilirubin, Total 0.3 mg/dL (0.2-1.0); Total Protein 8.4 g/dL (6.4-8.2)
[2021-11-04] MEDS ORDERED: ASPirin 325 MG TAB PO ONE (00:15)
[2021-11-04] MEDS ORDERED: HYDROcodone-ACET 5/325MG TAB PO PRN (02:00)
[2021-11-04] MEDS ORDERED: AZITHROMYCIN 500MG/ 250ML 250 ML IV ONE (02:00)
[2021-11-04] MEDS ORDERED: ONDANSETRON HCL 4 MG/2 ML VIAL IV PRN (02:00)
[2021-11-04] MEDS ORDERED: DOCUSATE SOD 100 MG CAP PO PRN (02:00)
[2021-11-04] MEDS ORDERED: ACETAMINOPHEN 325 MG TAB PO PRN (02:00)
[2021-11-04] MEDS ORDERED: MORPHINE SULFATE INJ 2 MG/ml SYRG IV PRN ×2 (02:00→03:00)
[2021-11-04] MEDS ORDERED: NITROGLYCERIN 0.4 MG SL TAB SL PRN (03:00)
[2021-11-04] MEDS: SODIUM CHLOR 0.9% PF (SALINE LOCK) 10ML VIAL/SYR IV SCH ×3 (06:16→22:34)
[2021-11-04 07:40] LABS: Basophils # (auto) 0 10 ^3/uL (0-0.2); Basophils % (auto) 0.4 % (0.0-2.0); Eosinophils # (auto) 0.1 10 ^3/uL (0-0.8); Hematocrit 32.9 % (36.0-46.0); Hemoglobin 10.8 g/dL (12.2-16.2); Lymphocytes # (auto) 1.5 10 ^3/uL (0.4-5.4); Lymphocytes % (auto) 20.1 % (10.0-50.0); Mean Corpuscular Hemoglobin 32.3 pg (28.0-32.0); Mean Corpuscular Hgb Conc. 32.7 g/dL (32.0-36.0); Mean Corpuscular Volume 98.7 fL (80.0-100.0); Monocytes # (auto) 0.6 10 ^3/uL (0-1.3); Monocytes % (auto) 8.3 % (0.0-12.0); Neutrophils # (auto) 5.1 10 ^3/uL (1.6-8.6); Neutrophils % (auto) 69.2 % (37.0-80.0); Nucleated Red Blood Cells % 0.1 %; Red Blood Cells 3.34 10^6/uL (4.0-5.20); White Blood Cell 7.4 10^3/uL (4.4-10.8)
[2021-11-04] MEDS: LEVOTHYROXINE SODIUM 50 MCG TAB PO SCH (07:57)
[2021-11-04] MEDS: ASPirin 81 mg TAB PO SCH (07:57)
[2021-11-04 08:19] LABS: Albumin 2.6 g/dL (3.4-5.0); Calcium 9.2 mg/dL (8.5-10.1); Potassium 4.6 mmol/L (3.5-5.1)
[2021-11-04 08:22] LABS: BUN/Creatinine Ratio 39.5; Bilirubin, Total 0.4 mg/dL (0.2-1.0); Total Protein 6.7 g/dL (6.4-8.2)
[2021-11-04] MEDS ORDERED: PANTOPRAZOLE 40 MG TAB PO ONE (10:00)
[2021-11-04 22:00] VITALS: BP 111/47
[2021-11-04] MEDS: AZITHROMYCIN 500MG/ 250ML 250 ML IV SCH (22:34)
[2021-11-05 05:00] VITALS: BP 131/60
[2021-11-05] MEDS: SODIUM CHLOR 0.9% PF (SALINE LOCK) 10ML VIAL/SYR IV SCH ×3 (07:32→22:21)
[2021-11-05] MEDS: LEVOTHYROXINE SODIUM 50 MCG TAB PO SCH (07:32)
[2021-11-05 08:12] LABS: Hematocrit 32.3 % (36.0-46.0); Hemoglobin 10.5 g/dL (12.2-16.2); Mean Corpuscular Hemoglobin 31.2 pg (28.0-32.0); Mean Corpuscular Hgb Conc. 32.4 g/dL (32.0-36.0); Red Blood Cells 3.37 10^6/uL (4.0-5.20); Red Cell Distribution Width 15.5 % (11.8-14.3); White Blood Cell 4.6 10^3/uL (4.4-10.8)
[2021-11-05 08:14] LABS: Basophils % (manual) 0 (0.0-2.0); Blast Cells 0; Metamyelocytes % 0; Promyelocytes % 0; Reactive Lymphocytes 0
[2021-11-05 08:29] LABS: Albumin 2.7 g/dL (3.4-5.0); Calcium 9.5 mg/dL (8.5-10.1); Potassium 4.4 mmol/L (3.5-5.1)
[2021-11-05 08:32] LABS: BUN/Creatinine Ratio 26.9; Band Neutrophils % (manual) 6; Bilirubin, Total 0.3 mg/dL (0.2-1.0); Eosinophils % (manual) 2 (0-7); Lymphocytes % (manual) 46 (10.0-50.0); Monocytes % (manual) 7 (0-12); Myelocytes % 2; Total Protein 6.9 g/dL (6.4-8.2)
[2021-11-05 09:00] VITALS: BP 139/64
[2021-11-05] MEDS: PANTOPRAZOLE 40 MG TAB PO SCH (09:55)
[2021-11-05] MEDS: ASPirin 81 mg TAB PO SCH (09:55)
[2021-11-05] MEDS ORDERED: IOHEXOL 350 MG/ML 100ML IJ ONE (11:42)
[2021-11-05] MEDS: APIXABAN 5 MG TAB PO SCH ×2 (11:58→22:18)
[2021-11-05 13:00] VITALS: BP 118/55
[2021-11-05 16:42] VITALS: BP 116/62
[2021-11-05 21:40] VITALS: BP 124/55
[2021-11-05] MEDS: AZITHROMYCIN 500MG/ 250ML 250 ML IV SCH (22:20)
[2021-11-06 04:38] VITALS: BP 128/56
[2021-11-06] MEDS: LEVOTHYROXINE SODIUM 50 MCG TAB PO SCH (06:10)
[2021-11-06] MEDS: SODIUM CHLOR 0.9% PF (SALINE LOCK) 10ML VIAL/SYR IV SCH ×3 (06:10→21:19)
[2021-11-06] MEDS: PANTOPRAZOLE 40 MG TAB PO SCH (08:33)
[2021-11-06] MEDS: APIXABAN 5 MG TAB PO SCH (08:33)
[2021-11-06] MEDS: ASPirin 81 mg TAB PO SCH (08:33)
[2021-11-06 09:00] VITALS: BP 127/63
[2021-11-06 13:00] VITALS: BP 106/63
[2021-11-06] MEDS ORDERED: PANTOPRAZOLE 40 MG/10 ML VIAL INJ IV ONE (14:15)
[2021-11-06 16:56] VITALS: BP 109/56
[2021-11-06 17:21] LABS: Urine WBC None Seen /hpf (0 - 5)
[2021-11-06 17:36] LABS: Urine Bacteria NONE SEEN /hpf (None Seen); Urine Blood Negative /uL (Negative); Urine Specific Gravity 1.022 (1.001-1.035)
[2021-11-06] MEDS: AZITHROMYCIN 250 MG TAB PO SCH (20:08)
[2021-11-06 22:00] VITALS: BP 116/61
[2021-11-07 05:00] VITALS: BP 138/60
[2021-11-07] MEDS: SODIUM CHLOR 0.9% PF (SALINE LOCK) 10ML VIAL/SYR IV SCH ×3 (05:35→22:00)
[2021-11-07] MEDS: LEVOTHYROXINE SODIUM 50 MCG TAB PO SCH (06:27)
[2021-11-07 06:58] LABS: INR 0.93 (0.9-1.15); Partial Thromboplastin Time < 20.0 sec (24.6-33.4)
[2021-11-07] MEDS ORDERED: LIDOCAINE VISCOUS 2% 15ML UD ONE (08:06)
[2021-11-07] MEDS ORDERED: SODIUM CHLORIDE LOCK 10 ML ONE (08:06)
[2021-11-07 09:00] VITALS: BP 138/71
[2021-11-07] MEDS: PANTOPRAZOLE 40 MG/10 ML VIAL INJ IV SCH (09:26)
[2021-11-07] MEDS: ASPirin 81 mg TAB PO SCH (10:00)
[2021-11-07] MEDS: PANTOPRAZOLE 40 MG TAB PO SCH (10:00)
[2021-11-07 10:31] LABS: Hematocrit 35.7 % (36.0-46.0); Hemoglobin 11.5 g/dL (12.2-16.2); Mean Corpuscular Hemoglobin 30.6 pg (28.0-32.0); Mean Corpuscular Hgb Conc. 32.1 g/dL (32.0-36.0); Mean Corpuscular Volume 95.4 fL (80.0-100.0); Red Blood Cells 3.74 10^6/uL (4.0-5.20); Red Cell Distribution Width 15.2 % (11.8-14.3); White Blood Cell 4.9 10^3/uL (4.4-10.8)
[2021-11-07 10:38] LABS: Band Neutrophils % (manual) 0; Basophils % (manual) 0 (0.0-2.0); Blast Cells 0; Metamyelocytes % 0; Myelocytes % 0; Reactive Lymphocytes 0
[2021-11-07 11:25] LABS: Eosinophils % (manual) 8 (0-7); Lymphocytes % (manual) 20 (10.0-50.0); Monocytes % (manual) 10 (0-12); Promyelocytes % 2
[2021-11-07 13:00] VITALS: BP 148/66
[2021-11-07 16:34] VITALS: BP 134/73
[2021-11-07] MEDS: AZITHROMYCIN 250 MG TAB PO SCH (20:07)
[2021-11-07 22:16] VITALS: BP 122/63
[2021-11-08 04:40] VITALS: BP 126/61
[2021-11-08] MEDS: SODIUM CHLOR 0.9% PF (SALINE LOCK) 10ML VIAL/SYR IV SCH ×3 (05:49→23:49)
[2021-11-08] MEDS: LEVOTHYROXINE SODIUM 50 MCG TAB PO SCH (06:21)
[2021-11-08] MEDS: PANTOPRAZOLE 40 MG/10 ML VIAL INJ IV SCH (08:54)
[2021-11-08] MEDS: ASPirin 81 mg TAB PO SCH (08:54)
[2021-11-08 09:27] VITALS: BP 123/63
[2021-11-08 12:50] VITALS: BP 129/78
[2021-11-08] MEDS: MIDAZOLAM HCL 5 MG/ML-1ML VIAL ONE ×4 (15:45→15:56)
[2021-11-08] MEDS: fentaNYL CITRATE 100 MCG/2 ML VL ONE ×3 (15:45→15:53)
[2021-11-08] MEDS: diphenhdrAMINE HCL 50 MG/1 ML VL ONE ×2 (15:50→15:52)
[2021-11-08 17:28] VITALS: BP 128/58
[2021-11-08] MEDS: AZITHROMYCIN 250 MG TAB PO SCH (20:34)
[2021-11-08 22:00] VITALS: BP 110/50
[2021-11-09 05:00] VITALS: BP 118/62
[2021-11-09] MEDS: SODIUM CHLOR 0.9% PF (SALINE LOCK) 10ML VIAL/SYR IV SCH ×2 (05:26→13:42)
[2021-11-09] MEDS: LEVOTHYROXINE SODIUM 50 MCG TAB PO SCH (06:26)
[2021-11-09 09:17] VITALS: BP 122/52
[2021-11-09] MEDS: PANTOPRAZOLE 40 MG/10 ML VIAL INJ IV SCH (09:39)
[2021-11-09] MEDS: ASPirin 81 mg TAB PO SCH (09:39)
[2021-11-09] MEDS ORDERED: PANT40TA2 PO ×2 (11:11)
[2021-11-09 13:00] VITALS: BP 121/52
[2021-11-09 17:25] VITALS: BP 126/65
[2021-11-09 17:34] VITALS: BP 121/52
== END 2021-11-09 19:00 | disposition home or self-care (01) | DRG 391 ==
LOC: ER 18:31 → EDBD 18:31 → TELE 11-04 02:57 → TELE-EAST 11-04 20:20
PROVIDERS: ADMIT Nurse Practitioner Family; ATTEND Internal Medicine
PROC: 0DB68ZX Excision of Stomach, Via Natural or Artificial Opening Endoscopic, Diagnostic (ICD-10-PCS; 2021-11-08)
PROC: 0DB38ZX Excision of Lower Esophagus, Via Natural or Artificial Opening Endoscopic, Diagnostic (ICD-10-PCS; 2021-11-08)
PROC: 0DB48ZX Excision of Esophagogastric Junction, Via Natural or Artificial Opening Endoscopic, Diagnostic (ICD-10-PCS; 2021-11-08)
PROC: 0DB98ZX Excision of Duodenum, Via Natural or Artificial Opening Endoscopic, Diagnostic (ICD-10-PCS; principal; 2021-11-08 15:40)
DX: K21.00 Gastro-esophageal reflux disease with esophagitis, without bleeding (principal); I21.A1 Myocardial infarction type 2; J96.11 Chronic respiratory failure with hypoxia; K44.9 Diaphragmatic hernia without obstruction or gangrene; B34.9 Viral infection, unspecified; D64.9 Anemia, unspecified; E03.9 Hypothyroidism, unspecified; E88.09 Other disorders of plasma-protein metabolism, not elsewhere classified; G47.33 Obstructive sleep apnea (adult) (pediatric); I48.0 Paroxysmal atrial fibrillation; K29.70 Gastritis, unspecified, without bleeding; I11.0 Hypertensive heart disease with heart failure; R19.7 Diarrhea, unspecified; R59.0 Localized enlarged lymph nodes; Z20.822 Contact with and (suspected) exposure to COVID-19; J43.9 Emphysema, unspecified; I50.9 Heart failure, unspecified; Z86.711 Personal history of pulmonary embolism; Z79.899 Other long term (current) drug therapy; Z82.3 Family history of stroke; Z82.49 Family history of ischemic heart disease and other diseases of the circulatory system; Z83.3 Family history of diabetes mellitus; Z86.718 Personal history of other venous thrombosis and embolism; Z87.891 Personal history of nicotine dependence; Z95.0 Presence of cardiac pacemaker; Z88.0 Allergy status to penicillin; Z88.8 Allergy status to other drugs, medicaments and biological substances; Z90.49 Acquired absence of other specified parts of digestive tract
CPT/HCPCS: 36415; 43239; 71045; 71275; 80053; 81001; 83735; 83880; 84443; 84484; 85007; 85025; 85027; 85610; 85730; 93005; 93306; 96365; 96367; C9113; G0378; J2250

== ENCOUNTER → 2022-04-19 | Outpatient (CLI) | payer OTHER, MEDICAID ==
[~2022-04-19] MED LIST changes: -CILO100T PO; -CYA100I; -DOCU-94 PO; -FERR-20 PO; -HYDR12.56 PO; -IRBE300T43 PO; -LOSA25TA38 PO; -MAGN400T40 PO; -METH2.5T PO; -NITR0.4S31 SL; -OMEP20TA PO; -OMEP20TA44 PO; -ONDA-144 PO; +PANT40TA2 PO; -VERA240C2 PO; -VORI200T PO; -WARF1TAB36 PO
[2022-04-19 10:22] LABS: Free T3 2.27 pg/mL (2.3-4.2); Free T4 (Free Thyroxine) 1.66 ng/dL (0.89-1.76)
== END | disposition home or self-care (01) ==
LOC: LAB 08:34
PROVIDERS: ATTEND Internal Medicine
DX: E03.9 Hypothyroidism, unspecified (principal)
CPT/HCPCS: 36415; 84439; 84443; 84481

== ENCOUNTER 2022-10-16 16:30 | Inpatient (IN) | payer OTHER, MEDICAID ==
[~2022-10-16] VITALS: Ht 149.9 cm; Wt 103.4 kg
[~2022-10-16 16:30] MED LIST changes: +FOLI-119 PO; -FOLI1TAB6 PO
[2022-10-16 20:54] LABS: Albumin 3.7 g/dL (3.4-5.0); Potassium 5.2 mmol/L (3.5-5.1)
[2022-10-16 20:57] LABS: BUN/Creatinine Ratio 18.8 (10.0-20.0); Bilirubin, Total 0.4 mg/dL (0.2-1.0); Total Protein 9.2 g/dL (6.4-8.2)
[2022-10-16 21:50] LABS: Basophils # (auto) 0 10 ^3/uL (0-0.2); Basophils % (auto) 0.8 % (0.0-2.0); Eosinophils # (auto) 0.1 10 ^3/uL (0-0.8); Eosinophils % (auto) 2.2 % (0.0-7.0); Hematocrit 26.1 % (36.0-46.0); Lymphocytes # (auto) 1.6 10 ^3/uL (0.4-5.4); Lymphocytes % (auto) 28.3 % (10.0-50.0); Mean Corpuscular Hemoglobin 25.2 pg (28.0-32.0); Mean Corpuscular Hgb Conc. 30.7 g/dL (32.0-36.0); Mean Corpuscular Volume 81.9 fL (80.0-100.0); Monocytes # (auto) 0.9 10 ^3/uL (0-1.3); Neutrophils # (auto) 3.1 10 ^3/uL (1.6-8.6); Neutrophils % (auto) 53.7 % (37.0-80.0); Nucleated Red Blood Cells % 0.3 %; Red Blood Cells 3.18 10^6/uL (4.0-5.20); Red Cell Distribution Width 19.9 % (11.8-14.3); White Blood Cell 5.7 10^3/uL (4.4-10.8)
[2022-10-16 21:56] LABS: INR 1.07 (0.9-1.15)
[2022-10-16] MEDS ORDERED: HEPARIN DRIP/D5W 100UNITS/ML 250 ML IV SCH (22:00)
[2022-10-16] MEDS ORDERED: HEPARIN SODIUM (PORCINE) 5000 UNITS/ML 1ML VIAL IV ONE (22:00)
[2022-10-16] MEDS ORDERED: NITROGLYCERIN 0.4 MG SL TAB SL PRN (22:15)
[2022-10-16] MEDS ORDERED: ACETAMINOPHEN 325 MG TAB PO PRN (22:15)
[2022-10-16] MEDS ORDERED: MORPHINE SULFATE INJ 2 MG/ml SYRG IV PRN (22:15)
[2022-10-16] MEDS ORDERED: HYDROcodone-ACET 5/325MG TAB PO PRN (22:15)
[2022-10-16] MEDS ORDERED: SODIUM CHLORIDE 0.9% 1,000 ML IV ONE (22:30)
[2022-10-16] MEDS ORDERED: APIX5TAB PO (22:47)
[2022-10-16] MEDS ORDERED: METO25TA93 PO (22:47)
[2022-10-16] MEDS ORDERED: AMIO200T13 PO (22:47)
[2022-10-16 23:41] VITALS: O2SAT 98
[2022-10-17] VITALS (12 sets, daily range): BP systolic 108–135; BP diastolic 25–53; PULSE 59–68; RESP 12–18; TEMP 97.7–98.2; O2SAT 96–100
[2022-10-17] MEDS: ALBUTEROL SULF 2.5 MG/0.5ML(0.5%) NEB SOLN NEB SCH ×3 (05:31→22:30)
[2022-10-17] MEDS: IPRATROPIUM BROM 0.5 MG/2.5ML INH SOL NEB SCH ×3 (05:31→22:31)
[2022-10-17 05:59] LABS: Basophils # (auto) 0 10 ^3/uL (0-0.2); Hemoglobin 7.2 g/dL (12.2-16.2); Lymphocytes # (auto) 1.4 10 ^3/uL (0.4-5.4); Monocytes # (auto) 0.6 10 ^3/uL (0-1.3); Neutrophils # (auto) 2.7 10 ^3/uL (1.6-8.6)
[2022-10-17 06:01] LABS: Basophils % (auto) 0.8 % (0.0-2.0); Eosinophils # (auto) 0.1 10 ^3/uL (0-0.8); Hematocrit 22.6 % (36.0-46.0); Lymphocytes % (auto) 28.4 % (10.0-50.0); Mean Corpuscular Hemoglobin 25.8 pg (28.0-32.0); Mean Corpuscular Hgb Conc. 31.9 g/dL (32.0-36.0); Mean Corpuscular Volume 80.9 fL (80.0-100.0); Neutrophils % (auto) 55.8 % (37.0-80.0); Nucleated Red Blood Cells % 0.2 %; Red Cell Distribution Width 19.6 % (11.8-14.3); White Blood Cell 4.8 10^3/uL (4.4-10.8)
[2022-10-17 06:08] LABS: Potassium 3.8 mmol/L (3.5-5.1)
[2022-10-17 06:18] LABS: Albumin 3.1 g/dL (3.4-5.0); BUN/Creatinine Ratio 23.2 (10.0-20.0); Bilirubin, Total 0.3 mg/dL (0.2-1.0); Calcium 9.4 mg/dL (8.5-10.1); Total Protein 6.5 g/dL (6.4-8.2)
[2022-10-17] MEDS: LEVOTHYROXINE SODIUM 25 MCG TAB PO SCH (06:28)
[2022-10-17 07:32] LABS: INR 1.09 (0.9-1.15); Partial Thromboplastin Time 28.1 SEC (24.5-34.5)
[2022-10-17] MEDS ORDERED: HEPARIN SODIUM (PORCINE) 5000 UNITS/ML 1ML VIAL IV ONE (08:00)
[2022-10-17] MEDS: HEPARIN DRIP/D5W 100UNITS/ML 250 ML IV SCH ×2 (08:03→18:41)
[2022-10-17] MEDS ORDERED: METOPROLOL SUCCINATE XL 50 MG TAB PO SCH (10:00)
[2022-10-17] MEDS ORDERED: FUROSEMIDE 40 MG TAB PO SCH (10:00)
[2022-10-17] MEDS: AMIODARONE HCL 200 MG TAB PO SCH ×2 (10:27→21:19)
[2022-10-17] MEDS: FOLIC ACID 1 MG TAB PO SCH (10:27)
[2022-10-17] MEDS: PANTOPRAZOLE 40 MG TAB PO SCH (10:27)
[2022-10-17] MEDS ORDERED: diphenhdrAMINE HCL 25 MG CAP PO ONE (14:00)
[2022-10-17 15:11] LABS: INR 1.05 (0.9-1.15); Partial Thromboplastin Time 23.7 SEC (24.5-34.5)
[2022-10-18] VITALS (16 sets, daily range): BP systolic 114–146; BP diastolic 38–59; PULSE 59–63; RESP 18–20; TEMP 97.9–98.7; O2SAT 92–100
[2022-10-18 01:52] LABS: INR 1.09 (0.9-1.15)
[2022-10-18 01:54] LABS: Partial Thromboplastin Time > 139.0 SEC (24.5-34.5)
[2022-10-18] MEDS ORDERED: HEPARIN DRIP/D5W 100UNITS/ML 250 ML IV SCH (03:15)
[2022-10-18] MEDS: LEVOTHYROXINE SODIUM 25 MCG TAB PO SCH (06:21)
[2022-10-18] MEDS: IPRATROPIUM BROM 0.5 MG/2.5ML INH SOL NEB SCH ×3 (06:34→21:53)
[2022-10-18] MEDS: ALBUTEROL SULF 2.5 MG/0.5ML(0.5%) NEB SOLN NEB SCH ×3 (06:34→21:53)
[2022-10-18 07:00] LABS: Urine Bacteria FEW /hpf (None Seen); Urine Blood Negative /uL (Negative); Urine Hyaline Cast MANY /lpf (0 - 2); Urine Mucus FEW (None Seen); Urine Specific Gravity 1.015 (1.001-1.035); Urine WBC 2 /hpf (0 - 5)
[2022-10-18 09:23] LABS: Basophils # (auto) 0.1 10 ^3/uL (0-0.2); Basophils % (auto) 1.6 % (0.0-2.0); Eosinophils # (auto) 0.2 10 ^3/uL (0-0.8); Eosinophils % (auto) 2.5 % (0.0-7.0); Hematocrit 26.3 % (36.0-46.0); Hemoglobin 8.1 g/dL (12.2-16.2); Lymphocytes # (auto) 1.4 10 ^3/uL (0.4-5.4); Mean Corpuscular Hemoglobin 24.8 pg (28.0-32.0); Mean Corpuscular Hgb Conc. 30.6 g/dL (32.0-36.0); Mean Corpuscular Volume 80.9 fL (80.0-100.0); Monocytes # (auto) 0.5 10 ^3/uL (0-1.3); Monocytes % (auto) 7.7 % (0.0-12.0); Neutrophils # (auto) 4.4 10 ^3/uL (1.6-8.6); Neutrophils % (auto) 67.2 % (37.0-80.0); Nucleated Red Blood Cells % 0.3 %; Red Blood Cells 3.25 10^6/uL (4.0-5.20); White Blood Cell 6.6 10^3/uL (4.4-10.8)
[2022-10-18] MEDS: FOLIC ACID 1 MG TAB PO SCH (09:55)
[2022-10-18] MEDS: AMIODARONE HCL 200 MG TAB PO SCH ×2 (09:55→21:50)
[2022-10-18] MEDS: PANTOPRAZOLE 40 MG TAB PO SCH (09:55)
[2022-10-18 10:57] LABS: BUN/Creatinine Ratio 25.4 (10.0-20.0); Calcium 9.4 mg/dL (8.5-10.1); Potassium 3.8 mmol/L (3.5-5.1)
[2022-10-18 13:04] LABS: INR 1.09 (0.9-1.15)
[2022-10-18 13:07] LABS: Partial Thromboplastin Time > 139.0 SEC (24.5-34.5)
[2022-10-18] MEDS: RIVAROXABAN 15 MG TAB PO SCH (18:07)
[2022-10-19] VITALS (20 sets, daily range): BP systolic 115–134; BP diastolic 39–47; PULSE 57–73; RESP 16–22; TEMP 97.1–98.7; O2SAT 94–100
[2022-10-19] MEDS: LEVOTHYROXINE SODIUM 25 MCG TAB PO SCH (06:04)
[2022-10-19 06:40] LABS: Eosinophils # (auto) 0.1 10 ^3/uL (0-0.8); Lymphocytes # (auto) 1.4 10 ^3/uL (0.4-5.4); Nucleated Red Blood Cells % 0.2 %; Red Blood Cells 2.49 10^6/uL (4.0-5.20); White Blood Cell 5.4 10^3/uL (4.4-10.8)
[2022-10-19 06:47] LABS: Basophils # (auto) 0.1 10 ^3/uL (0-0.2); Eosinophils % (auto) 2.4 % (0.0-7.0); Hematocrit 20.5 % (36.0-46.0); Lymphocytes % (auto) 26.2 % (10.0-50.0); Mean Corpuscular Hemoglobin 25.3 pg (28.0-32.0); Mean Corpuscular Hgb Conc. 30.9 g/dL (32.0-36.0); Monocytes # (auto) 0.6 10 ^3/uL (0-1.3); Monocytes % (auto) 11.9 % (0.0-12.0); Neutrophils # (auto) 3.1 10 ^3/uL (1.6-8.6); Neutrophils % (auto) 58.5 % (37.0-80.0); Red Cell Distribution Width 19.8 % (11.8-14.3)
[2022-10-19] MEDS: ALBUTEROL SULF 2.5 MG/0.5ML(0.5%) NEB SOLN NEB SCH ×3 (06:48→21:47)
[2022-10-19] MEDS: IPRATROPIUM BROM 0.5 MG/2.5ML INH SOL NEB SCH ×3 (06:48→21:47)
[2022-10-19 06:53] LABS: % Iron Saturation 20.3 % (15-50)
[2022-10-19 06:58] LABS: Calcium 9.4 mg/dL (8.5-10.1)
[2022-10-19 07:01] LABS: Hemoglobin 6.3 g/dL (12.2-16.2)
[2022-10-19 09:14] LABS: Ferritin 14.2 ng/mL (10-322)
[2022-10-19] MEDS: FOLIC ACID 1 MG TAB PO SCH (09:32)
[2022-10-19] MEDS: PANTOPRAZOLE 40 MG TAB PO SCH (09:32)
[2022-10-19] MEDS: AMIODARONE HCL 200 MG TAB PO SCH ×2 (09:32→21:54)
[2022-10-19 14:07] LABS: Basophils # (auto) 0.1 10 ^3/uL (0-0.2); Eosinophils # (auto) 0.1 10 ^3/uL (0-0.8); Lymphocytes # (auto) 1.3 10 ^3/uL (0.4-5.4); Monocytes # (auto) 0.6 10 ^3/uL (0-1.3); Neutrophils # (auto) 3.7 10 ^3/uL (1.6-8.6)
[2022-10-19 14:09] LABS: Basophils % (auto) 1.1 % (0.0-2.0); Eosinophils % (auto) 1.4 % (0.0-7.0); Hematocrit 20.6 % (36.0-46.0); Lymphocytes % (auto) 23.5 % (10.0-50.0); Mean Corpuscular Hemoglobin 24.8 pg (28.0-32.0); Mean Corpuscular Hgb Conc. 30.3 g/dL (32.0-36.0); Mean Corpuscular Volume 81.9 fL (80.0-100.0); Monocytes % (auto) 9.7 % (0.0-12.0); Neutrophils % (auto) 64.3 % (37.0-80.0); Nucleated Red Blood Cells % 0.1 %; Red Blood Cells 2.52 10^6/uL (4.0-5.20); Red Cell Distribution Width 19.6 % (11.8-14.3); White Blood Cell 5.7 10^3/uL (4.4-10.8)
[2022-10-19 14:14] LABS: Hemoglobin 6.3 g/dL (12.2-16.2)
[2022-10-19 14:38] LABS: BUN/Creatinine Ratio 29.2 (10.0-20.0); Calcium 9.3 mg/dL (8.5-10.1); Potassium 4.1 mmol/L (3.5-5.1)
[2022-10-19] MEDS: diphenhdrAMINE HCL 25 MG CAP PO PRN (14:42)
[2022-10-19] MEDS: RIVAROXABAN 15 MG TAB PO SCH (18:41)
[2022-10-19 21:44] LABS: Basophils # (auto) 0 10 ^3/uL (0-0.2); Eosinophils # (auto) 0.1 10 ^3/uL (0-0.8); Lymphocytes # (auto) 1.3 10 ^3/uL (0.4-5.4); Lymphocytes % (auto) 22.6 % (10.0-50.0); Mean Corpuscular Hgb Conc. 31.3 g/dL (32.0-36.0); Monocytes # (auto) 0.7 10 ^3/uL (0-1.3); Nucleated Red Blood Cells % 0.3 %; White Blood Cell 5.9 10^3/uL (4.4-10.8)
[2022-10-19 21:46] LABS: Basophils % (auto) 0.8 % (0.0-2.0); Eosinophils % (auto) 1.7 % (0.0-7.0); Hematocrit 23.7 % (36.0-46.0); Hemoglobin 7.4 g/dL (12.2-16.2); Mean Corpuscular Hemoglobin 25.4 pg (28.0-32.0); Mean Corpuscular Volume 81.2 fL (80.0-100.0); Monocytes % (auto) 11.8 % (0.0-12.0); Neutrophils # (auto) 3.7 10 ^3/uL (1.6-8.6); Neutrophils % (auto) 63.1 % (37.0-80.0); Red Blood Cells 2.92 10^6/uL (4.0-5.20); Red Cell Distribution Width 19.9 % (11.8-14.3)
[2022-10-20] VITALS (13 sets, daily range): BP systolic 123–142; BP diastolic 39–62; PULSE 60–77; RESP 16–20; TEMP 97.6–98.6; O2SAT 94–100
[2022-10-20] MEDS: diphenhdrAMINE HCL 25 MG CAP PO PRN (02:34)
[2022-10-20] MEDS: LEVOTHYROXINE SODIUM 25 MCG TAB PO SCH (06:26)
[2022-10-20] MEDS: IPRATROPIUM BROM 0.5 MG/2.5ML INH SOL NEB SCH ×3 (06:43→19:34)
[2022-10-20] MEDS: ALBUTEROL SULF 2.5 MG/0.5ML(0.5%) NEB SOLN NEB SCH ×3 (06:43→19:34)
[2022-10-20 07:06] LABS: Immunoglobulin G, Serum 1123 mg/dL (586-1602)
[2022-10-20] MEDS: FOLIC ACID 1 MG TAB PO SCH (09:55)
[2022-10-20] MEDS: PANTOPRAZOLE 40 MG TAB PO SCH (09:55)
[2022-10-20] MEDS: AMIODARONE HCL 200 MG TAB PO SCH ×2 (09:56→21:36)
[2022-10-20] MEDS ORDERED: NITROFURANTOIN 100 mg CAP PO ONE (12:30)
[2022-10-20 13:46] LABS: Hematocrit 25.6 % (36.0-46.0)
[2022-10-20] MEDS: RIVAROXABAN 15 MG TAB PO SCH (18:35)
[2022-10-20 18:37] LABS: Hematocrit 23.9 % (36.0-46.0); Hemoglobin 7.5 g/dL (12.2-16.2)
[2022-10-20] MEDS: NITROFURANTOIN 100 mg CAP PO SCH (21:36)
[2022-10-21] VITALS (15 sets, daily range): BP systolic 111–148; BP diastolic 49–58; PULSE 56–70; RESP 16–20; TEMP 97.9–98.6; O2SAT 94–100
[2022-10-21 00:56] LABS: Hemoglobin 7.8 g/dL (12.2-16.2)
[2022-10-21 00:57] LABS: Hematocrit 25.6 % (36.0-46.0)
[2022-10-21] MEDS: diphenhdrAMINE HCL 25 MG CAP PO PRN ×2 (04:34→21:44)
[2022-10-21] MEDS: LEVOTHYROXINE SODIUM 25 MCG TAB PO SCH (06:39)
[2022-10-21] MEDS: IPRATROPIUM BROM 0.5 MG/2.5ML INH SOL NEB SCH ×3 (06:49→19:11)
[2022-10-21] MEDS: ALBUTEROL SULF 2.5 MG/0.5ML(0.5%) NEB SOLN NEB SCH ×3 (06:49→19:10)
[2022-10-21] MEDS: FOLIC ACID 1 MG TAB PO SCH (09:50)
[2022-10-21] MEDS: AMIODARONE HCL 200 MG TAB PO SCH ×2 (09:50→21:45)
[2022-10-21] MEDS: NITROFURANTOIN 100 mg CAP PO SCH ×2 (09:50→21:44)
[2022-10-21] MEDS: PANTOPRAZOLE 40 MG TAB PO SCH (09:50)
[2022-10-21 16:37] LABS: Hematocrit 25.9 % (36.0-46.0); Hemoglobin 7.9 g/dL (12.2-16.2)
[2022-10-21] MEDS: RIVAROXABAN 15 MG TAB PO SCH (18:06)
[2022-10-21 23:55] LABS: Hematocrit 24.8 % (36.0-46.0); Hemoglobin 7.8 g/dL (12.2-16.2)
[2022-10-22] MEDS: diphenhdrAMINE HCL 25 MG CAP PO PRN ×2 (04:26→10:37)
[2022-10-22 04:43] VITALS: BP 135/45; PULSE 61; RESP 18; TEMP 98; O2SAT 96
[2022-10-22 05:31] LABS: Basophils # (auto) 0 10 ^3/uL (0-0.2); Eosinophils # (auto) 0.1 10 ^3/uL (0-0.8); Lymphocytes # (auto) 1.4 10 ^3/uL (0.4-5.4); Mean Corpuscular Volume 81.7 fL (80.0-100.0); Monocytes # (auto) 0.7 10 ^3/uL (0-1.3); Neutrophils # (auto) 4.1 10 ^3/uL (1.6-8.6); Nucleated Red Blood Cells % 0.1 %; White Blood Cell 6.4 10^3/uL (4.4-10.8)
[2022-10-22 05:33] LABS: Basophils % (auto) 0.8 % (0.0-2.0); Eosinophils % (auto) 1.9 % (0.0-7.0); Hematocrit 25.5 % (36.0-46.0); Mean Corpuscular Hemoglobin 25.7 pg (28.0-32.0); Mean Corpuscular Hgb Conc. 31.4 g/dL (32.0-36.0); Monocytes % (auto) 10.7 % (0.0-12.0); Neutrophils % (auto) 64.6 % (37.0-80.0); Red Blood Cells 3.12 10^6/uL (4.0-5.20)
[2022-10-22 05:37] LABS: Red Cell Distribution Width 20.3 % (11.8-14.3)
[2022-10-22] MEDS: LEVOTHYROXINE SODIUM 25 MCG TAB PO SCH (06:03)
[2022-10-22] MEDS: IPRATROPIUM BROM 0.5 MG/2.5ML INH SOL NEB SCH ×2 (07:28→14:38)
[2022-10-22 07:29] VITALS: PULSE 60; RESP 18; O2SAT 98
[2022-10-22] MEDS: ALBUTEROL SULF 2.5 MG/0.5ML(0.5%) NEB SOLN NEB SCH ×2 (07:29→14:38)
[2022-10-22 07:39] VITALS: PULSE 62; RESP 18; O2SAT 100
[2022-10-22 08:00] VITALS: PULSE 60; RESP 18; O2SAT 94
[2022-10-22 08:41] LABS: BUN/Creatinine Ratio 17.5 (10.0-20.0); Calcium 9.4 mg/dL (8.5-10.1); Potassium 4.9 mmol/L (3.5-5.1)
[2022-10-22] MEDS ORDERED: DEXT1SUS PO (10:37)
[2022-10-22] MEDS: AMIODARONE HCL 200 MG TAB PO SCH (10:37)
[2022-10-22] MEDS: NITROFURANTOIN 100 mg CAP PO SCH (10:37)
[2022-10-22] MEDS: PANTOPRAZOLE 40 MG TAB PO SCH (10:37)
[2022-10-22] MEDS ORDERED: RIVA15TA PO (10:37)
[2022-10-22] MEDS ORDERED: PANT40TA2 PO (10:37)
[2022-10-22] MEDS: FOLIC ACID 1 MG TAB PO SCH (10:37)
[2022-10-22 12:24] VITALS: BP 115/40; PULSE 60; TEMP 36.7
== END 2022-10-22 14:27 | disposition home or self-care (01) | DRG 299 ==
LOC: ER 16:30 → TELE 22:27 → TELE-WESTW 10-17 16:58
PROVIDERS: ADMIT Internal Medicine; ATTEND Internal Medicine
PROC: 05H933Z Insertion of Infusion Device into Right Brachial Vein, Percutaneous Approach (ICD-10-PCS; 2022-10-17)
PROC: B54MZZA Ultrasonography of Right Upper Extremity Veins, Guidance (ICD-10-PCS; 2022-10-17)
PROC: 30233N1 Transfusion of Nonautologous Red Blood Cells into Peripheral Vein, Percutaneous Approach (ICD-10-PCS; principal; 2022-10-19)
DX: I82.411 Acute embolism and thrombosis of right femoral vein (principal); N17.0 Acute kidney failure with tubular necrosis; D68.59 Other primary thrombophilia; I13.0 Hypertensive heart and chronic kidney disease with heart failure and stage 1 through stage 4 chronic kidney disease, or unspecified chronic kidney disease; J96.10 Chronic respiratory failure, unspecified whether with hypoxia or hypercapnia; N39.0 Urinary tract infection, site not specified; I48.91 Unspecified atrial fibrillation; E03.9 Hypothyroidism, unspecified; N18.9 Chronic kidney disease, unspecified; D63.8 Anemia in other chronic diseases classified elsewhere; I73.9 Peripheral vascular disease, unspecified; K44.9 Diaphragmatic hernia without obstruction or gangrene; J43.9 Emphysema, unspecified; I50.9 Heart failure, unspecified; Z95.0 Presence of cardiac pacemaker; Z86.711 Personal history of pulmonary embolism; Z88.0 Allergy status to penicillin; Z88.1 Allergy status to other antibiotic agents; Z87.891 Personal history of nicotine dependence; Z82.3 Family history of stroke; Z82.49 Family history of ischemic heart disease and other diseases of the circulatory system; Z83.3 Family history of diabetes mellitus; Z80.3 Family history of malignant neoplasm of breast; K21.00 Gastro-esophageal reflux disease with esophagitis, without bleeding
CPT/HCPCS: 36415; 71045; 80048; 80053; 81001; 82270; 82607; 82728; 82784; 83540; 83550; 83615; 83880; 84155; 84165; 84443; 85014; 85018; 85025; 85045; 85379; 85610; 85730; 86334; 86850; 86880; 86900; 86901; 86920; 87086; 93926; 94640; 97110; 97116; 97163; 97530; G0378

== ENCOUNTER 2022-11-13 12:04 | Emergency (ER) | payer OTHER, MEDICAID ==
[~2022-11-13] VITALS: Ht 149.9 cm; Wt 74.0 kg
[~2022-11-13 12:04] MED LIST changes: +AMIO200T13 PO; -APIX2.5T PO; +DEXT1SUS PO; +METO25TA93 PO; +RIVA15TA PO
[2022-11-13 14:14] LABS: Alanine Aminotransferase 17 U/L (7-40); Albumin 3.8 g/dL (3.2-4.8); Alkaline Phosphatase 96 U/L (46-116); Anion Gap 7.8 (5-15); Aspartate Aminotransferase 23 U/L (13-40); BUN/Creatinine Ratio 17.9 (10.0-20.0); Blood Urea Nitrogen 19 mg/dL (9-23); Calcium 9.8 mg/dL (8.5-10.1); Carbon Dioxide 19.2 mmol/L (20-30); Chloride 113 mmol/L (98-107); Glucose 68 mg/dL (74-106); Sodium 140 mmol/L (136-145)
[2022-11-13 14:15] LABS: Bilirubin, Total 0.4 mg/dL (0.2-1.0); Total Protein 6.6 g/dL (5.7-8.2)
[2022-11-13 14:51] LABS: Basophils # (auto) 0 10 ^3/uL (0-0.2); Basophils % (auto) 0.9 % (0.0-2.0); Eosinophils # (auto) 0.1 10 ^3/uL (0-0.8); Eosinophils % (auto) 1.4 % (0.0-7.0); Hemoglobin 7.8 g/dL (12.2-16.2); Mean Corpuscular Volume 82.5 fL (80.0-100.0); Nucleated Red Blood Cells % 0.4 %
[2022-11-13 14:52] LABS: Hematocrit 25.5 % (36.0-46.0); Lymphocytes # (auto) 1.3 10 ^3/uL (0.4-5.4); Lymphocytes % (auto) 29.7 % (10.0-50.0); Mean Corpuscular Hemoglobin 25.1 pg (28.0-32.0); Mean Corpuscular Hgb Conc. 30.4 g/dL (32.0-36.0); Monocytes # (auto) 0.4 10 ^3/uL (0-1.3); Monocytes % (auto) 10.3 % (0.0-12.0); Neutrophils # (auto) 2.4 10 ^3/uL (1.6-8.6); Neutrophils % (auto) 57.7 % (37.0-80.0); White Blood Cell 4.2 10^3/uL (4.4-10.8)
[2022-11-13 15:29] LABS: Red Cell Distribution Width 20.8 % (11.8-14.3)
[2022-11-13 22:58] LABS: Urine Bacteria NONE SEEN /hpf (None Seen); Urine Blood Negative /uL (Negative); Urine Clarity Clear (Clear); Urine Color Colorless (Yellow); Urine Protein, UAD Negative (Negative); Urine Specific Gravity 1.014 (1.001-1.035); Urine Urobilinogen Normal (Negative); Urine WBC 1 /hpf (0 - 5); Urine pH 6.5 (5.0-8.0)
[2022-11-14 05:45] VITALS: BP 140/62; PULSE 61; RESP 14; TEMP 98.4; O2SAT 98
[2022-11-14] MEDS ORDERED: DexAMETHasone SOD PHOS 10MG/1ML VIAL INJ IV ONE (05:45)
[2022-11-14] MEDS ORDERED: ALBUTEROL SULF 2.5 MG/0.5ML(0.5%) NEB SOLN NEB ONE (05:45)
[2022-11-14] MEDS ORDERED: AZITHROMYCIN 500MG/ 250ML 250 ML IV ONE (05:45)
[2022-11-14] MEDS ORDERED: IPRATROPIUM BROM 0.5 MG/2.5ML INH SOL NEB ONE (05:45)
[2022-11-14] MEDS ORDERED: IPRATROPIUM BROM 0.5 MG/2.5ML INH SOL ONE (05:52)
[2022-11-14] MEDS ORDERED: ALBUTEROL SULF 2.5 MG/0.5ML(0.5%) NEB SOLN ONE (05:52)
[2022-11-14] MEDS ORDERED: PRED20TA2 PO ×2 (05:55)
[2022-11-14 06:01] VITALS: RESP 18; O2SAT 100
[2022-11-20] MEDS ORDERED: OMEP20TA PO (13:53)
== END 2022-11-14 07:45 | disposition home or self-care (01) ==
LOC: ER 12:04
DX: J44.1 Chronic obstructive pulmonary disease with (acute) exacerbation (principal); K21.9 Gastro-esophageal reflux disease without esophagitis; I10 Essential (primary) hypertension; Z90.49 Acquired absence of other specified parts of digestive tract; Z87.891 Personal history of nicotine dependence
CPT/HCPCS: 36415; 71045; 80053; 81001; 84484; 85025; 85379; 93005; 94640

== ENCOUNTER → 2022-11-20 | Outpatient (CLI) | payer OTHER, MEDICAID ==
[~2022-11-20] MED LIST changes: +OMEP20TA PO; +PRED20TA2 PO
== END | disposition home or self-care (01) ==
LOC: LAB 08:59
PROVIDERS: ATTEND Internal Medicine Gastroenterology
DX: R10.84 Generalized abdominal pain (principal); R97.8 Other abnormal tumor markers; K22.89 Other specified disease of esophagus
CPT/HCPCS: 82274; 82378

== ENCOUNTER 2022-11-21 09:16 | Day surgery (SDC) | payer OTHER, MEDICAID ==
[~2022-11-21] VITALS: Ht 149.9 cm; Wt 73.9 kg
[~2022-11-21 09:16] MED LIST changes: -DEXT1SUS PO; -IRBE75TA10 PO; -PRED20TA2 PO
[2022-11-21] MEDS ORDERED: LIDOCAINE 2%HCL (LOCAL ANESTH.) INJ 20ML MDV ONE (10:24)
[2022-11-21] MEDS ORDERED: IODIXANOL 320MG/ML 100ML BTL IV ONE (10:24)
[2022-11-21] MEDS ORDERED: ANGIOMAX 250 MG VIAL IV ONE (10:29)
[2022-11-21] MEDS ORDERED: fentaNYL CITRATE 100 MCG/2 ML VL ONE (10:29)
[2022-11-21] MEDS ORDERED: MIDAZOLAM HCL 2MG/2ML 2ml VIAL (1mg/ml) ONE ×2 (10:30→11:09)
[2022-11-21] MEDS ORDERED: SODIUM CHL 0.9% 0 ML ONE (10:30)
[2022-11-21 10:40] LABS: Basophils # (auto) 0 10 ^3/uL (0-0.2); Basophils % (auto) 0.5 % (0.0-2.0); Hematocrit 27.1 % (36.0-46.0); Hemoglobin 7.9 g/dL (12.2-16.2); Lymphocytes # (auto) 1.6 10 ^3/uL (0.4-5.4)
[2022-11-21 10:42] LABS: Eosinophils # (auto) 0.1 10 ^3/uL (0-0.8); Eosinophils % (auto) 1.2 % (0.0-7.0); Lymphocytes % (auto) 23.5 % (10.0-50.0); Mean Corpuscular Hemoglobin 24.5 pg (28.0-32.0); Mean Corpuscular Hgb Conc. 29.2 g/dL (32.0-36.0); Mean Corpuscular Volume 84.1 fL (80.0-100.0); Monocytes # (auto) 0.9 10 ^3/uL (0-1.3); Monocytes % (auto) 12.6 % (0.0-12.0); Neutrophils # (auto) 4.3 10 ^3/uL (1.6-8.6); Neutrophils % (auto) 62.2 % (37.0-80.0); Nucleated Red Blood Cells % 0.2 %; Red Blood Cells 3.22 10^6/uL (4.0-5.20)
[2022-11-21 10:45] LABS: Red Cell Distribution Width 20.6 % (11.8-14.3)
[2022-11-21 10:54] LABS: INR 0.98 (0.9-1.15); Partial Thromboplastin Time 20.5 SEC (24.5-34.5); Prothrombin Time 10.3 sec (9.3-11.8)
== END 2022-11-21 16:08 | disposition home or self-care (01) ==
LOC: CATH 09:16
PROVIDERS: ATTEND Internal Medicine
DX: I87.2 Venous insufficiency (chronic) (peripheral) (principal); I70.211 Atherosclerosis of native arteries of extremities with intermittent claudication, right leg; I48.91 Unspecified atrial fibrillation
CPT/HCPCS: 36247; 36415; 75716; 85025; 85610; 85730; C1760; C1769; C1894; J1644; J2250; J3010; Q9967; 99152

== ENCOUNTER 2024-06-22 13:37 | Emergency (ER) | payer OTHER, MEDICAID ==
[~2024-06-22] VITALS: Ht 149.9 cm; Wt 71.0 kg
[2024-06-22 15:00] VITALS: BP 140/81; PULSE 77; RESP 20; TEMP 98.1; O2SAT 100
--- NOTE | 2024-06-22 15:49 | ED.PDOC ---
Musculoskeletal HPI Comments 70 eight year old female presented to the [facility] complaining of right hip pain for about two weeks no trauma she does have an trial in his no back pain Chief Complaint: Lower Extremity Time Seen by MD: 14:23 Primary Care Provider: Dr. Fierro Reviewed Notes: Nurses Notes, Medications, Allergies Allergies: Coded Allergies: Atenolol (Verified Allergy, Mild, RASH/ITCHING, 12/18/20) Lisinopril (Verified Allergy, Mild, 12/18/20) Ciprofloxacin (Verified Allergy, Unknown, 11/20/22) Penicillin V (Verified Allergy, Unknown, 12/18/20) Home Meds Active Scripts Naproxen (NAPROSYN TABLET) 500 Mg Tb, 1 TAB PO BID for 10 Days, #20 TAB 1 Refill Prov:ERIC MAGAÑA MD 06/22/24 Rivaroxaban (XARELTO) 15 Mg Tab, 15 MG PO DAILY for 30 Days, #30 TAB 2 Refills Prov:JOEY CASANOVA MD 10/22/22 Pantoprazole Sodium Sesquihydr (Protonix) 40 Mg Tab, 40 MG PO DAILY for 30 Days, #30 TAB 2 Refills Prov:JOEY CASANOVA MD 11/09/21 Reported Medications Omeprazole (Gnp Omeprazole) 20 Mg Tab, 1 TAB PO DAILY for gerd 11/20/22 Amiodarone HCl (Amiodarone HCl) 200 Mg Tab, 1 TAB PO BID 10/16/22 Metoprolol Succinate (Metoprolol Succinate Er) 25 Mg Tab, 1 TAB PO DAILY 10/16/22 Cyanocobalamin (Vitamin B12) 100 Mcg Tab, 100 MCG PO DAILY, TAB 10/29/21 Ascorbic Acid (VITAMIN C TABLET) 500 Mg Tb, 500 MG PO DAILY 12/19/20 Cholecalciferol (VITAMIN D3) 2,000 Unit Tab, 100 MCG PO DAILY 12/19/20 Folic Acid (Folic Acid) 1 Mg Tab, 1 MG PO DAILY, MG 02/26/20 Fluticasone-Salmeterol (Wixela Inhub 250-50 Mcg/Dose) 1 Aer Aer, 1 PUFF IN BID, AER 02/26/20 Ipratropium-Albuterol (Ipratropium Hallwood/Albut) 1 Maylin Maylin, 1 VIAL NEB Q6HP STRENGTH: 0.5-3 MG/3ML 02/26/20 Furosemide (Furosemide) 40 Mg Tab, 1 TAB PO DAILY for edema 02/26/20 Potassium Chloride (Klor-Con M20) 20 Meq Tab, 20 MEQ PO DAILY 12/31/11 Levothyroxine Sodium (Levothyroxine Sodium) 75 Mcg Tab, 75 MCG PO DAILY 12/31/11 Information Source: Patient Mode of Arrival: Wheelchair Past Medical History PAST MEDICAL HISTORY: Anemia, Angina, Arthritis, COPD, GERD, HTN, Thyroid Surgical History: Cholecystectomy, , Hernia Repair, Pacemaker, Tonsillectomy CLINICAL CYTOGENETICIST History: No Pertinent CLINICAL CYTOGENETICIST History Family History Family History: Family hx of Cancer Social History Smoker: Quit Greater Than 1 Year Alcohol: Denies ETOH Use Drugs: Denies Drug Use Lives In: Home Constitutional: denies: chills, diaphoresis, fatigue, fever, malaise, sweats, weakness, others Respiratory: denies: cough, hemoptysis, orthopnea, SOB at rest, shortness of breath, SOB with excertion, stridor, wheezing, others Cardiovascular: denies: chest pain, dizzy spells, diaphoresis, Dyspnea on exertion, edema, irregular heart beat, left arm pain, lightheadedness, palpitations, PND, syncope, others Gastrointestinal: denies: abdomen distended, abdominal pain, blood streaked bowels, constipated, diarrhea, dysphagia, difficulty swallowing, hematemesis, melena, nausea, poor appetite, poor fluid intake, rectal bleeding, rectal pain, vomiting, others Genitourinary: denies: abnormal vagina bleeding, burning, dyspareunia, dysuria, flank pain, frequency, hematuria, incontinence, pain, , vagina discharge, urgency, others Neurological: denies: dizziness, fainting, headache, left sided numbness, left sided weakness, numbness, paresthesia, pre-existing deficit, right sided numbness, right sided weakness, seizure, speech problems, tingling, tremors, weakness, others Musculoskeletal: reports: joint pain, muscle pain, others (Right hip pain can not walk on it) Physical Exam General Appearance: Moderate Distress, Obese HEENT: Normal ENT Inspection, PERRL/EOMI Neck: Limited Range of Motion, Non-Tender Respiratory: Chest Non-Tender, Lungs Clear, No Accessory Muscle Use, No Respiratory Distress, Normal Breath Sounds Cardiovascular: No Edema, No JVD, No Murmur, No Gallop, Normal Peripheral Pulses, Regular Rate/Rhythm Breast Exam: Deferred Gastrointestinal: No Organomegaly, Non Tender, No Pulsatile Mass, Normal Bowel Sounds, Soft Genitalia: Deferred Pelvic: Deferred Rectal: Deferred Extremities: Decreased range of motion, Normal inspection, Tender Musculoskeletal : Location: Right Extremity Location: Hip Apperance: Limited ROM, Tenderness: Mild, Tenderness: Moderate Neurologic: Alert, platform mill supervisor II-XII nml as Tested, No Motor Deficits, Normal Affect, Normal Mood, No Sensory Deficits Cerebellar Function: Normal Reflexes: NOT DONE Skin: Dry, Normal Color, Warm Peripheral Pulses: 1+ carotid (R), 1+ carotid (L) Lymphatic: No Adenopathy Was a procedure done? Was a procedure done?: No Differential Diagnosis EXT Differential Diagnosis: Fracture, Sprain, DJD, Strain, Arthritis, Bursitis X-Ray, Labs, Meds, VS Vital Signs Date Time Temp Pulse Resp B/P (MAP) Pulse Ox O2 Delivery O2 Flow Rate FiO2 06/22/24 15:00 98.1 77 20 140/81 (100) 100 98.1 06/22/24 15:00 77 20 100 Nasal Cannula 06/22/24 13:47 98.1 77 20 140/81 (100) 100 98.1 X-Ray, Labs, Meds, VS Comment Fast Track evaluation X-ray shows DJD no fracture or dislocation Patient will be discharged home to follow up with her PCP Time of 1ST Reevaluation: 14:22 Reevaluation 1ST: Unchanged Time of 2ND Reevaluation: 16:39 Reevaluation 2ND: Unchanged Consultation: PCP Patient Education/Counseling: Diagnosis, Treatment, Prognosis, Need For Follow Up Family Education/Counseling: Diagnosis, Treatment, Prognosis, Need For Follow Up, No Family Present Departure 1 Departure Time of Disposition: 16:40 Impression: Primary Impression: Degenerative joint disease of both hips Qualified Codes: M16.0 - Bilateral primary osteoarthritis of hip Disposition: 01 HOME / SELF CARE / HOMELESS Condition: Fair Additional Instructions: Local heat and follow up with your PCP e-Prescriptions Naproxen (NAPROSYN TABLET) 500 Mg Tb 1 TAB PO BID for 10 Days, #20 TAB 1 Refill Prov: ERIC MAGAÑA MD 06/22/24 Discharged With: Self Critical Care Note Critical Care Time?: No Stability Stability form required: No Heart Score Heart Score: Heart Score Response (Comments) Value History N/A 0 EKG N/A 0 Age >65 2 Risk Factors 1 or 2 risk factors 1 Troponin N/A 0 Total 3 ERIC MAGAÑA MD Jun 22, 2024 15:48
--- NOTE | 2024-06-22 16:36 | DVH ---
CLINICAL INDICATION: Two weeks ago pain right hip TECHNIQUE: 2-view XY R HIP COMPLETE XRAY Comparison: None FINDINGS/IMPRESSION: : There is no evidence of acute fracture or dislocation. Soft tissues are unremarkable. Moderate vascular calcification Mild degenerative changes of the left hip No fracture
[2024-06-22] MEDS ORDERED: NAP500T PO (16:41)
== END 2024-06-22 16:51 | disposition home or self-care (01) ==
LOC: ER 13:37
DX: M16.0 Bilateral primary osteoarthritis of hip (principal); I10 Essential (primary) hypertension; J44.9 Chronic obstructive pulmonary disease, unspecified; K21.9 Gastro-esophageal reflux disease without esophagitis; Z90.49 Acquired absence of other specified parts of digestive tract; Z90.89 Acquired absence of other organs; Z95.0 Presence of cardiac pacemaker; Z98.890 Other specified postprocedural states; Z87.891 Personal history of nicotine dependence; Z79.01 Long term (current) use of anticoagulants; Z79.51 Long term (current) use of inhaled steroids; Z79.899 Other long term (current) drug therapy; Z88.0 Allergy status to penicillin; Z88.1 Allergy status to other antibiotic agents; Z88.8 Allergy status to other drugs, medicaments and biological substances
CPT/HCPCS: 73502

== ENCOUNTER 2024-07-13 08:36 | Inpatient (IN) | payer OTHER, MEDICAID ==
[2024-07-13] VITALS (17 sets, daily range): BP systolic 108–150; BP diastolic 23–63; PULSE 65–66; RESP 12–22; TEMP 97.6–98.6; O2SAT 96–100
[~2024-07-13] VITALS: Ht 149.9 cm; Wt 69.2 kg
[~2024-07-13 08:36] MED LIST changes: +ALBU108A5 INH; +AMLO1TAB23 PO; +CETI-120 PO; +DOCU-265 PO; +DONE5TAB80 PO; +FERR325T20 PO; +NAP500T PO; +OMEP1CAP70 PO; +RIV20T PO; +[UNRECOGNIZED DRUG - CODE] PO
--- NOTE | 2024-07-13 08:47 | ED.PDOC ---
SOB-HPI HPI Comments 78 y.o female with PMHx of COPD, CHF, HTN, DM, presents to the ED for a chief complaint of SOB associated with bilateral leg pain and swelling that started 3 days ago. EMS reported SPO2 of 97% on 2 liters of oxygen [place] at home and gave two breathing treatments prior to ED arrival. Patient denies any chest pain, fever, chills, sick contact exposure. Time Seen by MD: 08:40 Primary Care Provider: Dr. Fierro Reviewed notes: Nurses Notes, Medications, Allergies Information Source: Patient Mode of Arrival: Ambulatory Severity: Moderate Timing: Days (3) Duration: Since onset Context: At Rest PE Risk Factors: None History of: COPD, CHF Prehospital treatment: 12 Lead EKG, Breathing Tx (2), Supervisor Cell Maintenance Modifying Factors: Nothing Associated Signs and Symptoms: Leg Swelling Past Medical History PAST MEDICAL HISTORY: Anemia, Angina, Arthritis, CHF, COPD, DM, GERD, HTN, Thyroid Surgical History: Cholecystectomy, , Hernia Repair, Pacemaker, Tonsillectomy CHRISTIAN SCIENCE READER History: No Pertinent CHRISTIAN SCIENCE READER History Family History Family History: Family hx of Cancer Social History Smoker: Quit Greater Than 1 Year Alcohol: Denies ETOH Use Drugs: Denies Drug Use Lives In: Home Constitutional: denies: chills, diaphoresis, fatigue, fever, malaise, sweats, weakness, others EENTM: denies: blurred vision, double vision, ear bleeding, ear discharge, ear drainage, ear pain, ear ringing, eye pain, eye redness, hearing loss, mouth pain, mouth swelling, nasal discharge, nose bleeding, nose congestion, nose pain, photophobia, tearing, throat pain, throat swelling, voice changes, others Respiratory: reports: SOB at rest, shortness of breath, SOB with excertion; denies: cough, hemoptysis, orthopnea, stridor, wheezing, others Cardiovascular: denies: chest pain, dizzy spells, diaphoresis, Dyspnea on exertion, edema, irregular heart beat, left arm pain, lightheadedness, palpitations, PND, syncope, others Gastrointestinal: denies: abdomen distended, abdominal pain, blood streaked bowels, constipated, diarrhea, dysphagia, difficulty swallowing, hematemesis, melena, nausea, poor appetite, poor fluid intake, rectal bleeding, rectal pain, vomiting, others Genitourinary: denies: abnormal vagina bleeding, burning, dyspareunia, dysuria, flank pain, frequency, hematuria, incontinence, pain, , vagina discharge, urgency, others Neurological: denies: dizziness, fainting, headache, left sided numbness, left sided weakness, numbness, paresthesia, pre-existing deficit, right sided numbness, right sided weakness, seizure, speech problems, tingling, tremors, weakness, others Musculoskeletal: reports: others (Bilateral leg swelling and pain ); denies: back pain, gout, joint pain, joint swelling, muscle pain, muscle stiffness, neck pain Integumetry: denies: bruises, change in color, change in hair/nails, dryness, laceration, lesions, lumps, rash, wounds, others Allergic/Immunocompromised: denies: Difficulty Healing, Frequent Infections, Hives, Itching, others Hematologic/Lymphatic: denies: anemia, blood clots, easy bleeding, easy bruising, swollen glands, others Endocrine: denies: excessive hunger, excessive sweating, excessive thirst, excessive urination, flushing, intolerance to cold, intolerance to heat, unexplained weight gain, unexplained weight loss, others Psychiatric: denies: anxiety, bipolar disorder, depression, hopeless, panic disorder, schizophrenia, sleepless, suicidal, others All Other Systems: Reviewed and Negative Physical Exam General Appearance: Moderate Distress HEENT: Normal ENT Inspection, Pharynx Normal, TMs Normal Neck: Full Range of Motion, Non-Tender, Normal, Normal Inspection Respiratory: Respiratory Distress, Wheezing Cardiovascular: No Edema, No JVD, No Murmur, No Gallop, Normal Peripheral Pulses, Regular Rate/Rhythm Breast Exam: Deferred Gastrointestinal: No Organomegaly, Non Tender, No Pulsatile Mass, Normal Bowel Sounds, Soft Genitalia: Deferred Pelvic: Deferred Rectal: Deferred Extremities: Pedal edema, Swelling (Bilateral lower extremity) Musculoskeletal : Apperance: Normal Neurologic: Alert Cerebellar Function: NOT DONE Reflexes: NOT DONE Skin: Pallor Peripheral Pulses: 3+ Radial (R), 3+ Radial (L) Lymphatic: No Adenopathy Was a procedure done? Was a procedure done?: No Differential Dx Differential Diagnosis: Anxiety, Asthma, Bronchitis, CHF, COPD, Pneumonia, Respiratory Distress, URI X-Ray, Labs, Meds, VS Vital Signs Date Time Temp Pulse Resp B/P (MAP) Pulse Ox O2 Delivery O2 Flow Rate FiO2 07/13/24 09:10 28 100 Cool Aerosol 8 N/A 07/13/24 09:02 65 22 98 Simple Mask* 6 50 07/13/24 09:02 98.4 65 22 139/47 (77) 95 98.4 07/13/24 08:47 65 07/13/24 08:43 100 Nasal Cannula* 6 44 07/13/24 08:43 98.6 80 22 144/78 (100) 100 98.6 Lab Test 07/13/24 09:50 Range/Units White Blood Count 8.6 4.4-10.8 10^3/uL Red Blood Count 1.86 L 4.0-5.20 10^6/uL Hemoglobin 5.7 *L 12.2-16.2 g/dL Hematocrit 18.5 L 36.0-46.0 % Mean Corpuscular Volume 99.4 80.0-100.0 fL Mean Corpuscular Hemoglobin 30.5 28.0-32.0 pg Mean Corpuscular Hemoglobin Concent 30.7 L 32.0-36.0 g/dL Red Cell Distribution Width 25.5 H 11.8-14.3 % Platelet Count 292 140-450 10^3/uL Mean Platelet Volume 7.5 6.9-10.8 fL Neutrophils (%) (Auto) 74.2 37.0-80.0 % Lymphocytes (%) (Auto) 15.5 10.0-50.0 % Monocytes (%) (Auto) 8.3 0.0-12.0 % Eosinophils (%) (Auto) 1.2 0.0-7.0 % Basophils (%) (Auto) 0.8 0.0-2.0 % Neutrophils # (Auto) 6.4 1.6-8.6 10 ^3/uL Lymphocytes # (Auto) 1.3 0.4-5.4 10 ^3/uL Monocytes # (Auto) 0.7 0-1.3 10 ^3/uL Eosinophils # (Auto) 0.1 0-0.8 10 ^3/uL Basophils # (Auto) 0.1 0-0.2 10 ^3/uL Nucleated Red Blood Cells 0.4 % Platelet Estimate Adequate Polychromasia Slight Hypochromasia (manual) Slight Anisocytosis (manual) Moderate Sodium Level 142 136-145 mmol/L Potassium Level 4.3 3.5-5.1 mmol/L Chloride Level 116 H 98-107 mmol/L Carbon Dioxide Level 16 L 20-31 mmol/L Anion Gap 10 5-15 Blood Urea Nitrogen 22 9-23 mg/dL Creatinine 0.98 0.550-1.02 mg/dL Glomerular Filtration Rate Calc 59 >90 mL/min BUN/Creatinine Ratio 22.4 H 10.0-20.0 Serum Glucose 83 74-106 mg/dL Calcium Level 9.7 8.7-10.4 mg/dL Troponin I High Sensitivity 5 </=34 ng/L Current Medications Medications (Trade) Dose Ordered Sig/Leonor Route Start Time Stop Time Status Last Admin Furosemide (Lasix Injection) 40 mg ONCE ONCE IV 07/13/24 09:00 07/13/24 09:01 DC 07/13/24 11:18 Methylprednisolone Sodium Succinate (Solu Medrol) 125 mg ONCE ONCE IV 07/13/24 09:00 07/13/24 09:01 DC 07/13/24 11:17 Albuterol (Ventolin Medneb) 5 mg ONCE ONCE NEB 07/13/24 09:00 07/13/24 09:01 DC 07/13/24 09:14 Ipratropium [place] (Atrovent Medneb) 0.5 mg ONCE ONCE NEB 07/13/24 09:00 07/13/24 09:01 DC 07/13/24 09:14 Patient alert. Complaining of shortness a breath. Possible COPD. Placed on oxygen. Possible CHF. Bilateral lower extremity swelling. Was given Lasix. Hemoglobin is low. Blood transfusion. Was given steroid. Was given breathing treatment. WBC within normal limits. Cardiac marker within normal limits. Reviewed her history. Waiting for family. CHEST RADIOGRAPH Indication: sob Technique: Single frontal view of the chest was obtained COMPARISON: XY CHEST PORTABLE on DOS: 11/13/22, XY CHEST PORTABLE on DOS: 10/16/22, CHEST PORTABLE on DOS: 11/03/21, CXRP on DOS: 11/03/21, CHEST PORTABLE on DOS: 10/30/21 FINDINGS: Lines and Tubes: Left chest pacemaker Lungs: Scarring in the right upper lobe Pleura: No effusion. No pneumothorax. Cardiomediastinal contours: Unremarkable Bones: Unremarkable IMPRESSION: Right upper lobe scarring. Time of 1ST Reevaluation: 08:43 Reevaluation 1ST: Unchanged Patient Education/Counseling: Diagnosis, Treatment, Prognosis Family Education/Counseling: No Family Present Departure 1 Departure Time of Disposition: 10:31 Impression: Primary Impression: CHF NYHA class III (symptoms with mildly strenuous activities) Qualified Codes: I50.43 - Acute on chronic combined systolic (congestive) and diastolic (congestive) heart failure Additional Impression: Severe anemia Disposition: ADMITTED INPATIENT Admit to: Med Surg Condition: Guarded Critical Care Note Critical Care Time?: Yes (90 min-critical care time only) Critical care comment: Placed on oxygen Stability Stability form required: No I personally scribed for LIO PATRICK MD ([email or web address]) on 07/13/24 at 08:47. Electronically submitted by Mami Boyd ([facility]). I personally scribed for LIO PATRICK MD ([email or web address]) on 07/13/24 at 14:39. Electronically submitted by Mami Boyd ([facility]). LIO PATRICK MD Jul 13, 2024 08:47
[2024-07-13] MEDS: ALBUTEROL SULF 2.5 MG/0.5ML(0.5%) NEB SOLN NEB ONE (09:14)
[2024-07-13] MEDS: IPRATROPIUM BROM 0.5 MG/2.5ML INH SOL NEB ONE (09:14)
--- NOTE | 2024-07-13 09:49 | DVH ---
CHEST RADIOGRAPH Indication: sob Technique: Single frontal view of the chest was obtained COMPARISON: XY CHEST PORTABLE on DOS: 11/13/22, XY CHEST PORTABLE on DOS: 10/16/22, CHEST PORTABLE on D OS: 11/03/21, CXRP on DOS: 11/03/21, CHEST PORTABLE on DOS: 10/30/21 FINDINGS: Lines and Tubes: Left chest pacemaker Lungs: Scarring in the right upper lobe Pleura: No effusion. No pneumothorax. Cardiomediastinal contours: Unremarkable Bones: Unremarkable IMPRESSION: Right upper lobe scarring.
[2024-07-13 10:15] LABS: Basophils # (auto) 0.1 10 ^3/uL (0-0.2); Basophils % (auto) 0.8 % (0.0-2.0); Eosinophils # (auto) 0.1 10 ^3/uL (0-0.8); Eosinophils % (auto) 1.2 % (0.0-7.0); Hematocrit 18.5 % (36.0-46.0); Lymphocytes # (auto) 1.3 10 ^3/uL (0.4-5.4); Lymphocytes % (auto) 15.5 % (10.0-50.0); Mean Corpuscular Hemoglobin 30.5 pg (28.0-32.0); Mean Corpuscular Hgb Conc. 30.7 g/dL (32.0-36.0); Mean Corpuscular Volume 99.4 fL (80.0-100.0); Monocytes # (auto) 0.7 10 ^3/uL (0-1.3); Monocytes % (auto) 8.3 % (0.0-12.0); Neutrophils # (auto) 6.4 10 ^3/uL (1.6-8.6); Neutrophils % (auto) 74.2 % (37.0-80.0); Nucleated Red Blood Cells % 0.4 %; Platelet Count (auto) 292 10^3/uL (140-450); Red Blood Cells 1.86 10^6/uL (4.0-5.20); White Blood Cell 8.6 10^3/uL (4.4-10.8)
[2024-07-13 10:17] LABS: Red Cell Distribution Width 25.5 % (11.8-14.3)
[2024-07-13 10:18] LABS: Potassium 4.3 mmol/L (3.5-5.1); Sodium 142 mmol/L (136-145)
[2024-07-13 10:19] LABS: Anion Gap 10 (5-15)
[2024-07-13 10:20] LABS: Calcium 9.7 mg/dL (8.7-10.4); Hemoglobin 5.7 g/dL (12.2-16.2)
[2024-07-13 10:22] LABS: Carbon Dioxide 16 mmol/L (20-31); Chloride 116 mmol/L (98-107)
[2024-07-13 10:24] LABS: Glucose 83 mg/dL (74-106)
[2024-07-13 10:25] LABS: BUN/Creatinine Ratio 22.4 (10.0-20.0); Blood Urea Nitrogen 22 mg/dL (9-23)
[2024-07-13] MEDS ORDERED: ACETAMINOPHEN 325 MG TAB PO PRN (11:00)
[2024-07-13] MEDS ORDERED: DOCUSATE SOD 100 MG CAP PO PRN (11:00)
[2024-07-13] MEDS ORDERED: ONDANSETRON HCL 4 MG/2 ML VIAL IV PRN (11:00)
--- NOTE | 2024-07-13 11:04 | DVHHP2 ---
History of Present Illness Reason for Visit: Shortness of breath History of Present Illness Rocio Muller is a 78-year-old female with past medical history of hypertension, hyperlipidemia, diabetes, CHF, COPD, diabetes, GERD, and hypothyroidism, who came in for shortness of breath. Patient states she has been becoming more short of breath over the last few days and that her legs have been hurting her. She states bilateral hip pain that radiates down her legs. Patient lives at home with a director of managed care during the day and one at night. She is a poor historian and asked me to call her daytime supervisor locomotive, Luz at [phone], she did not answer. Patient is not able to tell me what medications she is taking or why. Her profile shows Xarelto, patient can not tell me if she is taking that medication. I see that patient had a history of DVT, but scan showed no DVT at this time. Cardiovascular: HTN, hyperipidemia, Other (Angina, Pacemaker) Pulmonary: COPD GI: GERD Musculoskeletal: Osteoarthritis Endocrine: Diabetes, Hypothyroidism Past Surgical History: Cholecystectomy, , Hernia Repair, Other (Pacemaker), Tonsillectomy Review of Systems Constitutional: No: Fever, Chills, Sweats, Weakness, Malaise, Other Eyes: No: Pain, Vision change, Conjunctivae inflammation, Eyelid inflammation, Other, Redness ENT: No: Ear pain, Ear discharge, Nose pain, Nose discharge, Nose congestion, Mouth pain, Mouth swelling, Throat pain, Throat swelling, Other Respiratory: Shortness of breath; No: Cough, Dry, SOB with excertion, Wheezing, Hemoptysis, Pleuritic Pain, Sputum, Wheezing, Other Cardiovascular: No: Chest Pain, Palpitations, Orthopnea, Paroxysmal Noc. Dyspnea, Edema, Lt Headedness, Other Gastrointestinal: No: Nausea, Vomiting, Abdominal Pain, Diarrhea, Constipation, Melena, Hematochezia, Other Genitourinary: No Dysuria, No Frequency, No Incontinence, No Hematuria, No Retention, No Other Musculoskeletal: leg pain (bilateral); No: other, neck pain, shoulder pain, arm pain, back pain, hand pain, foot pain Skin: No: Rash, Lesions, Jaundice, Bruising, Other Neurological: No: Weakness, Numbness, Incoordination, Change in speech, Confusion, Seizures, Other Allergies: Coded Allergies: Atenolol (Verified Allergy, Mild, RASH/ITCHING, 12/18/20) Lisinopril (Verified Allergy, Mild, 12/18/20) Ciprofloxacin (Verified Allergy, Unknown, 11/20/22) Penicillin V (Verified Allergy, Unknown, 12/18/20) Exam Vital Signs Vital Signs Date Time Temp Pulse Resp B/P (MAP) Pulse Ox O2 Delivery O2 Flow Rate FiO2 07/13/24 09:10 28 100 Cool Aerosol 8 N/A 07/13/24 08:47 65 07/13/24 08:43 98.6 144/78 (100) 98.6 General Appearance: Alert, Oriented X3, Cooperative, mild distress HEENT: Atraumatic, PERRLA, Mucous membr. moist/pink Respiratory: Clear to auscultation, Normal air movement Cardiovascular: Regular rate, Normal S1, Normal S2, No murmurs Abdominal: Normal bowel sounds, Soft, No tenderness, No hepatospenomegaly Extremities: No clubbing, No cyanosis, No edema, Normal pulses, No tenderness/swelling Skin: No rashes, No breakdown, No significant lesion Neuro: Normal gait, Normal speech, Normal tone Psych/Mental Status: Mental status NL Labs/Xrays Labs Test 07/13/24 09:50 Range/Units White Blood Count 8.6 4.4-10.8 10^3/uL Red Blood Count 1.86 L 4.0-5.20 10^6/uL Hemoglobin 5.7 *L 12.2-16.2 g/dL Hematocrit 18.5 L 36.0-46.0 % Mean Corpuscular Volume 99.4 80.0-100.0 fL Mean Corpuscular Hemoglobin 30.5 28.0-32.0 pg Mean Corpuscular Hemoglobin Concent 30.7 L 32.0-36.0 g/dL Red Cell Distribution Width 25.5 H 11.8-14.3 % Platelet Count 292 140-450 10^3/uL Mean Platelet Volume 7.5 6.9-10.8 fL Neutrophils (%) (Auto) 74.2 37.0-80.0 % Lymphocytes (%) (Auto) 15.5 10.0-50.0 % Monocytes (%) (Auto) 8.3 0.0-12.0 % Eosinophils (%) (Auto) 1.2 0.0-7.0 % Basophils (%) (Auto) 0.8 0.0-2.0 % Neutrophils # (Auto) 6.4 1.6-8.6 10 ^3/uL Lymphocytes # (Auto) 1.3 0.4-5.4 10 ^3/uL Monocytes # (Auto) 0.7 0-1.3 10 ^3/uL Eosinophils # (Auto) 0.1 0-0.8 10 ^3/uL Basophils # (Auto) 0.1 0-0.2 10 ^3/uL Nucleated Red Blood Cells 0.4 % Sodium Level 142 136-145 mmol/L Potassium Level 4.3 3.5-5.1 mmol/L Chloride Level 116 H 98-107 mmol/L Carbon Dioxide Level 16 L 20-31 mmol/L Anion Gap 10 5-15 Blood Urea Nitrogen 22 9-23 mg/dL Creatinine 0.98 0.550-1.02 mg/dL Glomerular Filtration Rate Calc 59 >90 mL/min BUN/Creatinine Ratio 22.4 H 10.0-20.0 Serum Glucose 83 74-106 mg/dL Calcium Level 9.7 8.7-10.4 mg/dL Troponin I High Sensitivity 5 </=34 ng/L CHEST RADIOGRAPH FINDINGS: Lines and Tubes: Left chest pacemaker Lungs: Scarring in the right upper lobe Pleura: No effusion. No pneumothorax. Cardiomediastinal contours: Unremarkable Bones: Unremarkable IMPRESSION: Right upper lobe scarring. Bilateral lower extremity venous doppler FINDINGS: Normal phasic venous flow. Veins are fully compressible. No filling defects. IMPRESSION: 1. No evidence of deep vein thrombosis. Assessment/Plan Assessment/Plan Assessment: Severe anemia, CHF, COPD, Diabetes, Hypertension, Hypothyroidism, Plan: Admit to Med-Surg, Transfuse 2 units PRBC, Manage/Monitor H&H closely, IV Lasix, Accu checks Q AC&HS with sliding scale, Home medications reconciled, Home Xarelto not restarted, Plan discussed with: Patient Date of Service: Jul 13, 2024 Billing Provider: KLARISSA AIKEN Common Visit Codes: [id number] INP/OBS CARE (MOD) KLARISSA AIKEN Jul 13, 2024 11:04
[2024-07-13] MEDS: methylPREDNISolone SOD SUCC 125 MG/2 ML VL IV ONE (11:17)
[2024-07-13] MEDS: FUROSEMIDE 40 MG/4 ML VIAL IV ONE (11:18)
[2024-07-13 12:16] LABS: Urine Bacteria None Seen /hpf (None Seen)
[2024-07-13 13:28] LABS: Urine Blood Negative /uL (Negative); Urine Clarity Clear (Clear); Urine Color Light-Yellow (Yellow); Urine Protein, UAD Negative (Negative); Urine Specific Gravity 1.011 (1.001-1.035); Urine Squamous Epithelial Cell FEW /hpf (<5); Urine Urobilinogen Normal (Negative); Urine WBC < 1 /HPF (0-5); Urine pH 6.5 (5.0-9.0)
--- NOTE | 2024-07-13 13:42 | DVH ---
Bilateral lower extremity venous doppler INDICATION: R/O DVT TECHNIQUE: Duplex venous sonography was performed with real-time and flow sensitive images submitted for evaluation. FINDINGS: Normal phasic venous flow. Veins are fully compressible. No filling defects. IMPRESSION: 1. No evidence of deep vein thrombosis.
[2024-07-13 13:51] LABS: Anisocytosis Moderate; Hypochromia Slight; Platelet Estimate Adequate; Polychromasia Slight
[2024-07-13] MEDS ORDERED: DEXTROSE (50%) 50ML SYRG IV PRN (17:45)
[2024-07-13] MEDS: InsuLIN REG 1unit/0.01ml Soln (100units/ml) SC SCH (22:00)
[2024-07-13] MEDS: AMIODARONE HCL 200 MG TAB PO SCH (22:11)
[2024-07-13] MEDS: ACCU-CHEK COMFORT CURVE STRIP VI SCH (22:14)
[2024-07-13 22:26] LABS: Basophils # (auto) 0 10 ^3/uL (0-0.2); Eosinophils # (auto) 0 10 ^3/uL (0-0.8); Hemoglobin 9.9 g/dL (12.2-16.2); Lymphocytes # (auto) 0.6 10 ^3/uL (0.4-5.4); Monocytes # (auto) 0.2 10 ^3/uL (0-1.3); Monocytes % (auto) 3.2 % (0.0-12.0); Neutrophils # (auto) 5.1 10 ^3/uL (1.6-8.6); Platelet Count (auto) 275 10^3/uL (140-450)
[2024-07-13 22:29] LABS: Basophils % (auto) 0.3 % (0.0-2.0); Hematocrit 31.9 % (36.0-46.0); Lymphocytes % (auto) 10.5 % (10.0-50.0); Mean Corpuscular Hemoglobin 30.4 pg (28.0-32.0); Mean Corpuscular Hgb Conc. 31.2 g/dL (32.0-36.0); Mean Corpuscular Volume 97.5 fL (80.0-100.0); Nucleated Red Blood Cells % 0.9 %; Red Blood Cells 3.27 10^6/uL (4.0-5.20); Red Cell Distribution Width 23.4 % (11.8-14.3); White Blood Cell 5.9 10^3/uL (4.4-10.8)
[2024-07-13] MEDS: ALBUTEROL SULF 2.5 MG/0.5ML(0.5%) NEB SOLN NEB PRN (22:29)
[2024-07-13] MEDS: IPRATROPIUM BROM 0.5 MG/2.5ML INH SOL NEB PRN (22:29)
[2024-07-14] VITALS (17 sets, daily range): BP systolic 115–136; BP diastolic 46–85; PULSE 58–69; RESP 14–20; TEMP 97.6–98.3; O2SAT 96–100
[2024-07-14] MEDS: LEVOTHYROXINE SODIUM 25 MCG TAB PO SCH (06:29)
[2024-07-14] MEDS: InsuLIN REG 1unit/0.01ml Soln (100units/ml) SC SCH (06:31)
[2024-07-14 07:56] LABS: Basophils # (auto) 0 10 ^3/uL (0-0.2); Eosinophils # (auto) 0 10 ^3/uL (0-0.8)
[2024-07-14 07:59] LABS: Basophils % (auto) 0.2 % (0.0-2.0); Eosinophils % (auto) 0.1 % (0.0-7.0); Hematocrit 24.2 % (36.0-46.0); Hemoglobin 7.6 g/dL (12.2-16.2); Lymphocytes # (auto) 1.1 10 ^3/uL (0.4-5.4); Lymphocytes % (auto) 14.1 % (10.0-50.0); Mean Corpuscular Hemoglobin 30.7 pg (28.0-32.0); Mean Corpuscular Hgb Conc. 31.3 g/dL (32.0-36.0); Mean Corpuscular Volume 98.3 fL (80.0-100.0); Monocytes # (auto) 0.6 10 ^3/uL (0-1.3); Monocytes % (auto) 8.3 % (0.0-12.0); Neutrophils # (auto) 5.8 10 ^3/uL (1.6-8.6); Neutrophils % (auto) 77.3 % (37.0-80.0); Nucleated Red Blood Cells % 0.4 %; Platelet Count (auto) 252 10^3/uL (140-450); Red Blood Cells 2.46 10^6/uL (4.0-5.20); Red Cell Distribution Width 22.5 % (11.8-14.3); White Blood Cell 7.5 10^3/uL (4.4-10.8)
[2024-07-14 08:16] LABS: Alanine Aminotransferase 20 U/L (7-40); Albumin 3.3 g/dL (3.2-4.8); Alkaline Phosphatase 87 U/L (46-116); Anion Gap 9 (5-15); Aspartate Aminotransferase 26 U/L (13-40); BUN/Creatinine Ratio 27.4 (10.0-20.0); Bilirubin, Total 0.3 mg/dL (0.2-1.0); Blood Urea Nitrogen 23 mg/dL (9-23); Calcium 9.4 mg/dL (8.7-10.4); Carbon Dioxide 21 mmol/L (20-31); Potassium 4.2 mmol/L (3.5-5.1); Sodium 142 mmol/L (136-145); Total Protein 5.8 g/dL (5.7-8.2)
[2024-07-14 08:17] LABS: Chloride 112 mmol/L (98-107); Glucose 111 mg/dL (74-106)
[2024-07-14] MEDS: CHOLECALCIFEROL (VITD3) 1,000UNIT=25mCg TAB PO SCH (11:35)
[2024-07-14] MEDS: ASCORBIC ACID 500 MG TAB PO SCH (11:35)
[2024-07-14] MEDS: FUROSEMIDE 40 MG/4 ML VIAL IV SCH (11:37)
--- NOTE | 2024-07-14 12:26 | ECG ---
[facility] Test Date: 2024-07-13 Test Time: 08:47:01 Pat Name: RONALD LUCERO Department: ED Room: [facility] B Gender: F Slasher: DORA : 1945 Requested By: LIO PATRICK Order Number: [id number] Reading MD: Eulalio Ramos Measurements Intervals [place] Rate: 65 P: 0 MD: 49 QRS: 32 QRSD: 93 T: 70 QT: 449 QTc: 467 Interpretive Statements Atrial-paced complexes Low voltage, precordial leads Electronically Signed On 07-15-2024 13:05:49 PDT by Eulalio Ramos Please click the below link to view image of tracing.
[2024-07-14 15:04] LABS: Folate (Folic Acid) 37.89 ng/mL (>5.38)
--- NOTE | 2024-07-14 18:17 | DVHPNRES ---
Progress Note Date Seen: Jul 14, 2024 Resident Creating Document: HOOD DOTY RESIDENT Medical Necessity Reason Pt with a Central, PICC or Fol: No Subjective Review of Systems HPI: Rocio Muller is a 78-year-old female with past medical history of hypertension, hyperlipidemia, diabetes, CHF, COPD, diabetes, GERD, and hypothyroidism, who came in for shortness of breath. Patient states she has been becoming more short of breath over the last few days and that her legs have been hurting her. She states bilateral hip pain that radiates down her legs. Patient lives at home with a field care coordinator during the day and one at night. She is a poor historian and asked me to call her daytime plier worker, Luz at [phone], she did not answer. Patient is not able to tell me what medications she is taking or why. Her profile shows Xarelto, patient can not tell me if she is taking that medication. I see that patient had a history of DVT, but scan showed no DVT at this time. Past Surgical History: Cholecystectomy, , Hernia Repair, Other (Pacemaker), Tonsillectomy History of right leg DVT, anemia, chronic respiratory failure on 2 L, AFib , COPD, CKD, hypothyroidism, peripheral artery disease, anemia of chronic disease, sick sinus syndrome status post pacemaker, pulmonary embolism, hypertension Patient seen and examined at bedside. Patient is complaining of mild lower extremity pain. Complaining of mild generalized weakness. No shortness of breaths, no chest pain, nor any other symptom at this point. Patient received 2 units of PRBCs for low hemoglobin. ROS Constitutional: Complaining of generalized weakness HEENT: Denies changes in vision and hearing. Respiratory: Denies shortness of breath and cough Cardiovascular: Denies chest discomfort or palpitations GI: Denies abdominal pain, nausea, vomiting and diarrhea. : Denies dysuria and urinary frequency. Musculoskeletal: Denies myalgias and joint pain Skin: Denies rash and pruritus. Neurological: Denies dizziness, headache, vision or hearing problems Peripheral angiogram on 11/21/2022: No significant peripheral vascular disease EGD on 10/29/2021: Mild gastritis, 4 cm sliding hiatal hernia Colonoscopy on 03/06/2019: Diverticulosis, no active GI bleed prior recommended capsule endoscopy. Objective vital signs Vital Sign Date Time Temp Pulse Resp B/P (MAP) Pulse Ox O2 Delivery O2 Flow Rate FiO2 07/14/24 16:45 65 14 100 07/14/24 13:00 97.6 132/85 (101) 97.6 07/14/24 10:00 Nasal Cannula* 2 28 Total Intake and Output 07/13/24 07/13/24 07/14/24 15:00 23:00 07:00 Intake Total 0 ml 1130 ml 100 ml Output Total 0 ml 0 ml Balance 0 ml 1130 ml 100 ml medications Current Medications Medications Dose Ordered Sig/Leonor Route Start Time Stop Time Status Last Admin Dose Admin Acetaminophen/ Hydrocodone Bitart 1 tab Q4HP PRN PO 07/13/24 11:00 Ondansetron HCl 4 mg Q4HP PRN IV 07/13/24 11:00 Docusate Sodium 100 mg BIDPRN PRN PO 07/13/24 11:00 Acetaminophen 650 mg Q6HP PRN PO 07/13/24 11:00 Ipratropium [place] 0.5 mg Q4HPRN PRN NEB 07/13/24 11:00 07/13/24 22:29 0.5 MG Albuterol 2.5 mg Q4HPRN PRN NEB 07/13/24 11:00 07/14/24 16:36 2.5 MG Amiodarone HCl 200 mg BID PO 07/13/24 22:00 07/14/24 11:36 200 MG Ascorbic Acid 500 mg DAILY PO 07/14/24 10:00 07/14/24 11:35 500 MG Cholecalciferol 1,000 unit DAILY PO 07/14/24 10:00 07/14/24 11:35 1,000 UNIT Levothyroxine Sodium 75 mcg QAM PO 07/14/24 07:00 07/14/24 06:29 75 MCG Furosemide 40 mg DAILY IV 07/14/24 10:00 07/14/24 11:37 40 MG Diagnostic Test (Pha) 1 strip ACHS 07/13/24 22:00 07/14/24 11:37 1 STRIP Insulin Human Regular HS SC 07/13/24 22:00 Insulin Human Regular AC SC 07/14/24 07:00 Dextrose 50 ml UD PRN IV 07/13/24 17:45 Donepezil HCl 5 mg DAILY PO 07/15/24 10:00 Potassium Chloride 20 meq DAILY PO 07/15/24 10:00 Ferrous Sulfate 325 mg DAILY PO 07/15/24 10:00 Folic Acid 1 mg DAILY PO 07/15/24 10:00 Ipratropium [place] 0.5 mg QID NEB 07/14/24 18:00 Metoprolol Succinate 25 mg DAILY PO 07/15/24 10:00 Albuterol 2.5 mg QID NEB 07/14/24 18:00 Examination Physical examination General: Patient alert and oriented in person, place and time. Patient following commands. HEENT: Normocephalic, atraumatic, moist mucous membranes Respiratory/pulmonary: Clear lungs bilaterally, vesicular murmurs present in almost all lung alvarenga, no associated crackles or wheezes. Cardiovascular: Normal heart sounds S1 and S2 with no associated murmurs Abdomen: Abdomen nondistended, there is no pain to palpation in any of the abdominal quadrants, no palpable masses. Extremities: There is no peripheral edema present at the lower extremities. Peripheral Pulses: 3+ Radial (R). 3+ Radial (L). 3+ Dorsalis pedis (R). 3+ Dorsalis pedis(L) Skin: No rashes or pruritus, there is no sacral edema present at this time. Neurological: Intact cranial nerves with no focal neurologic deficits laboratory and microbiology Laboratory Tests 07/14/24 06:51 Test 07/14/24 06:51 Range/Units Serum Glucose 111 H 74-106 mg/dL Problem List/Assessment/Plan Problem List/Assessment/Plan Acute on chronic normocytic hypochromic severe anemia Acute diastolic CHF Chronic respiratory failure on oxygen via nasal cannula COPD no exacerbation Hypertension Hypothyroidism History of DVT and PE, not on anticoagulation given anemia, on amiodarone Sick sinus syndrome status post pacemaker, atrial paced rhythm Vitamin-D deficiency Plan/recommendation -given 2 units of PRBCs, continue ferrous sulfate 325 mg p.o. daily, folic acid 1 mg p.o. daily. -Continue Lasix 40 mg p.o. daily, continue breathing rhythm albuterol and ipratropium BUN. -Echocardiogram pending -Continue amiodarone 200 mg p.o. b.i.d., not on anticoagulation given severe anemia -Levothyroxine 75 mcg p.o. daily for hypothyroidism -Continue vitamin-D 1000 IU once daily for vitamin-D deficiency -Pending stool occult blood given severe anemia. Goals of care discussed greater than 23 minutes, full code status. Plan discussed with Dr. Schreiber Plan discussed with: Patient, Other (RN) My Orders My Orders Orders - HOOD DOTY Procedure Category Date Status Time Stool Occult Blood LAB 07/14/24 Logged 11:22 Donepezil Tablet PHA 07/15/24 In Process (Aricept Tablet) 10:00 Potassium Er Tablet PHA 07/15/24 In Process (Klor-Con Tablet) 10:00 Ferrous Sulfate Tablet PHA 07/15/24 In Process 10:00 Folic Acid Tablet PHA 07/15/24 In Process 10:00 Ipratropium Medneb PHA 07/14/24 In Process (Atrovent Medneb) 18:00 Metoprolol Xl PHA 07/15/24 In Process Succinate (Toprol Xl) 10:00 Albuterol Medneb PHA 07/14/24 In Process (Ventolin Medneb) 18:00 Sepsis reassessment post fluid Capillary Refill: < 3 seconds CC Plasma Assessment Blood Product Administration S: [id number] Date of Service: Jul 14, 2024 Billing Provider: RICARDO SCHREIBER MD Common Visit Codes: [id number] INP/OBS CARE(HIGH) HOOD DOTY Jul 14, 2024 18:17 RICARDO SCHREIBER MD Jul 14, 2024 21:58
[2024-07-14] MEDS: ALBUTEROL SULF 2.5 MG/0.5ML(0.5%) NEB SOLN NEB SCH (19:17)
[2024-07-14] MEDS: IPRATROPIUM BROM 0.5 MG/2.5ML INH SOL NEB SCH (19:17)
[2024-07-15] VITALS (17 sets, daily range): BP systolic 121–149; BP diastolic 43–97; PULSE 59–105; RESP 14–19; TEMP 97.4–98.7; O2SAT 98–100
[2024-07-15 08:39] LABS: Basophils # (auto) 0 10 ^3/uL (0-0.2); Basophils % (auto) 0.6 % (0.0-2.0); Eosinophils # (auto) 0.2 10 ^3/uL (0-0.8); Eosinophils % (auto) 2.4 % (0.0-7.0); Hematocrit 25.7 % (36.0-46.0); Hemoglobin 8.3 g/dL (12.2-16.2); Lymphocytes % (auto) 14.2 % (10.0-50.0); Mean Corpuscular Hemoglobin 29.4 pg (28.0-32.0); Mean Corpuscular Hgb Conc. 32.1 g/dL (32.0-36.0); Mean Corpuscular Volume 91.4 fL (80.0-100.0); Monocytes # (auto) 0.5 10 ^3/uL (0-1.3); Monocytes % (auto) 6.4 % (0.0-12.0); Neutrophils # (auto) 5.5 10 ^3/uL (1.6-8.6); Neutrophils % (auto) 76.4 % (37.0-80.0); Nucleated Red Blood Cells % 0.3 %; Platelet Count (auto) 269 10^3/uL (140-450); Red Blood Cells 2.81 10^6/uL (4.0-5.20); White Blood Cell 7.1 10^3/uL (4.4-10.8)
[2024-07-15 08:42] LABS: Red Cell Distribution Width 21.6 % (11.8-14.3)
[2024-07-15 08:52] LABS: INR 0.98 (0.9-1.15); Partial Thromboplastin Time 23.1 SEC (24.5-34.5); Prothrombin Time 10.4 sec (9.3-11.8)
[2024-07-15 09:03] LABS: Anion Gap 9 (5-15); Calcium 9.8 mg/dL (8.7-10.4); Carbon Dioxide 23 mmol/L (20-31); Potassium 3.8 mmol/L (3.5-5.1); Sodium 141 mmol/L (136-145)
[2024-07-15 09:09] LABS: BUN/Creatinine Ratio 29.9 (10.0-20.0)
[2024-07-15 09:10] LABS: Blood Urea Nitrogen 26 mg/dL (9-23); Chloride 109 mmol/L (98-107); Glucose 127 mg/dL (74-106)
[2024-07-15] MEDS: POTASSIUM CHL 20 Meq TABLET PO SCH (10:44)
[2024-07-15] MEDS: DONEPEZIL HYDROCHLORIDE 5 MG TAB PO SCH (10:44)
[2024-07-15] MEDS: FERROUS SULFATE 325mg EC TAB PO SCH (10:44)
[2024-07-15] MEDS: FOLIC ACID 1 MG TAB PO SCH (10:44)
[2024-07-15] MEDS: METOPROLOL SUCCINATE XL 50 MG TAB PO SCH (10:47)
--- NOTE | 2024-07-15 14:28 | DVHSR ---
APPROVED REPORT EXAM: LIMITED Two-dimensional and M-mode echocardiogram with Doppler and color Doppler. Blood Pressure: 136/87 mmHg INDICATION Dyspnea chf Surgery/Intervention Pacemaker: RISK FACTORS Obesity: Height: 4'11, Weight: 164 DIMENSIONS LVDd4.0 (3.8-5.7cm)LA (2D)3.4 (1.9-4.0cm)Aortic Root3.0 (2.0-3.7cm) LVDs2.6 (2.5-4.0cm)LA (MM) (1.9-4.0cm)Aortic Cusp Exc1.7 (1.5-2.0cm) EF (%) 55.0 (55-70%)Rt. Atrium2.7 (1.9-4.0cm)Asc. Aorta cm IVSd0.8 (0.7-1.1cm)RV (D)3.6 (1.8-2.4cm) PWd0.8 (0.7-1.1cm) Mitral Valve MitralMitral Stenosis E wave0.76m/sMV Mean GR.mmHg A wave0.88m/sMV Peak GR.66mmHg E/A ratio0.92D MVAcm2 DECEL [id number] 1/2 [place] Aortic Valve Aortic ValveAortic Stenosis V11.07m/[place] Mean GR.6mmHg V21.58m/[place] Peak GR.10mmHg LVOT Diameter2.2 (1.8-2.4cm)Doppler AVA2.57cm2 Tricuspid Valve TR Velocity2.64m/s [id number] Other Information Quality : Technically LimitedRhythm : Technically limited study due to body habitus.patient position. Conclusion Technically difficult study with poor cardiac visualization LVEF normal at 50-55% Mild diastolic dysfunction RV not well visualized, likely grossly normal function. there is likely device present
--- NOTE | 2024-07-15 15:09 | DVHPNRES ---
Progress Note Date Seen: Jul 15, 2024 Resident Creating Document: HOOD DOTY RESIDENT Medical Necessity Reason Pt with a Central, PICC or Fol: No Subjective Review of Systems HPI: Rocio Muller is a 78-year-old female with past medical history of hypertension, hyperlipidemia, diabetes, CHF, COPD, diabetes, GERD, and hypothyroidism, who came in for shortness of breath. Patient states she has been becoming more short of breath over the last few days and that her legs have been hurting her. She states bilateral hip pain that radiates down her legs. Patient lives at home with a child care associate teacher during the day and one at night. She is a poor historian and asked me to call her daytime merchandise buyer, Luz at [phone], she did not answer. Patient is not able to tell me what medications she is taking or why. Her profile shows Xarelto, patient can not tell me if she is taking that medication. I see that patient had a history of DVT, but scan showed no DVT at this time. Past Surgical History: Cholecystectomy, , Hernia Repair, Other (Pacemaker), Tonsillectomy History of right leg DVT, anemia, chronic respiratory failure on 2 L, AFib , COPD, CKD, hypothyroidism, peripheral artery disease, anemia of chronic disease, sick sinus syndrome status post pacemaker, pulmonary embolism, hypertension Peripheral angiogram on 11/21/2022: No significant peripheral vascular disease EGD on 10/29/2021: Mild gastritis, 4 cm sliding hiatal hernia Colonoscopy on 03/06/2019: Diverticulosis, no active GI bleed prior recommended capsule endoscopy. Patient seen and examined at bedside. Physical therapy today, mild generalized weakness. No other new complains ROS Constitutional: Complaining of generalized weakness HEENT: Denies changes in vision and hearing. Respiratory: Denies shortness of breath and cough Cardiovascular: Denies chest discomfort or palpitations GI: Denies abdominal pain, nausea, vomiting and diarrhea. : Denies dysuria and urinary frequency. Musculoskeletal: Denies myalgias and joint pain Skin: Denies rash and pruritus. Neurological: Denies dizziness, headache, vision or hearing problems Objective vital signs Vital Sign Date Time Temp Pulse Resp B/P (MAP) Pulse Ox O2 Delivery O2 Flow Rate FiO2 07/15/24 13:03 98.7 60 19 141/46 (77) 100 98.7 4/23/25 11:14 Nasal Cannula 2.0 07/15/24 11:14 28 Total Intake and Output 07/14/24 07/14/24 07/15/24 15:00 23:00 07:00 Intake Total 575 ml 240 ml Balance 575 ml 240 ml medications Current Medications Medications Dose Ordered Sig/Leonor Route Start Time Stop Time Status Last Admin Dose Admin Acetaminophen/ Hydrocodone Bitart 1 tab Q4HP PRN PO 07/13/24 11:00 Ondansetron HCl 4 mg Q4HP PRN IV 07/13/24 11:00 Docusate Sodium 100 mg BIDPRN PRN PO 07/13/24 11:00 Acetaminophen 650 mg Q6HP PRN PO 07/13/24 11:00 Ipratropium [place] 0.5 mg Q4HPRN PRN NEB 07/13/24 11:00 07/13/24 22:29 0.5 MG Albuterol 2.5 mg Q4HPRN PRN NEB 07/13/24 11:00 07/14/24 16:36 2.5 MG Amiodarone HCl 200 mg BID PO 07/13/24 22:00 07/15/24 10:45 200 MG Ascorbic Acid 500 mg DAILY PO 07/14/24 10:00 07/15/24 10:44 500 MG Cholecalciferol 1,000 unit DAILY PO 07/14/24 10:00 07/15/24 10:44 1,000 UNIT Levothyroxine Sodium 75 mcg QAM PO 07/14/24 07:00 07/15/24 06:05 75 MCG Furosemide 40 mg DAILY IV 07/14/24 10:00 07/15/24 10:47 40 MG Diagnostic Test (Pha) 1 strip ACHS 07/13/24 22:00 07/15/24 11:30 1 STRIP Insulin Human Regular AC SC 07/14/24 07:00 Dextrose 50 ml UD PRN IV 07/13/24 17:45 Donepezil HCl 5 mg DAILY PO 07/15/24 10:00 07/15/24 10:44 5 MG Potassium Chloride 20 meq DAILY PO 07/15/24 10:00 07/15/24 10:44 20 MEQ Ferrous Sulfate 325 mg DAILY PO 07/15/24 10:00 07/15/24 10:44 325 MG Folic Acid 1 mg DAILY PO 07/15/24 10:00 07/15/24 10:44 1 MG Ipratropium [place] 0.5 mg QID NEB 07/14/24 18:00 07/15/24 11:14 0.5 MG Metoprolol Succinate 25 mg DAILY PO 07/15/24 10:00 07/15/24 10:47 25 MG Albuterol 2.5 mg QID NEB 07/14/24 18:00 07/15/24 11:14 2.5 MG Examination General: Patient alert and oriented in person, place and time. Patient following commands. HEENT: Normocephalic, atraumatic, moist mucous membranes Respiratory/pulmonary: Clear lungs bilaterally, vesicular murmurs present in almost all lung alvarenga, no associated crackles or wheezes. Cardiovascular: Normal heart sounds S1 and S2 with no associated murmurs Abdomen: Abdomen nondistended, there is no pain to palpation in any of the abdominal quadrants, no palpable masses. Extremities: There is no peripheral edema present at the lower extremities. Peripheral Pulses: 3+ Radial (R). 3+ Radial (L). 3+ Dorsalis pedis (R). 3+ Dorsalis pedis(L) Skin: No rashes or pruritus, there is no sacral edema present at this time. Neurological: Intact cranial nerves with no focal neurologic deficits laboratory and microbiology Laboratory Tests 07/15/24 08:28 Test 07/15/24 08:28 Range/Units Serum Glucose 127 H 74-106 mg/dL Problem List/Assessment/Plan Problem List/Assessment/Plan Acute on chronic normocytic hypochromic severe anemia Acute diastolic CHF Chronic respiratory failure on oxygen via nasal cannula COPD no exacerbation Hypertension Hypothyroidism History of DVT and PE, not on anticoagulation given anemia, on amiodarone Sick sinus syndrome status post pacemaker, atrial paced rhythm Vitamin-D deficiency Plan/recommendation -Plan for physical therapy today -given 2 units of PRBCs, continue ferrous sulfate 325 mg p.o. daily, folic acid 1 mg p.o. daily. -Continue Lasix 40 mg p.o. daily, continue breathing rhythm albuterol and ipratropium BUN. -Echocardiogram 07/15/24:LVEF normal at 50-55%, Mild diastolic dysfunction -Continue amiodarone 200 mg p.o. b.i.d., not on anticoagulation given severe anemia -Levothyroxine 75 mcg p.o. daily for hypothyroidism -Continue vitamin-D 1000 IU once daily for vitamin-D deficiency -Pending stool occult blood given severe anemia. Goals of care discussed greater than 23 minutes, full code status. Plan discussed with Dr. Schreiber Plan discussed with: Patient, Other (RN) My Orders My Orders Orders - HOOD DOTY Procedure Category Date Status Time Pt Request For Service PT 07/15/24 Logged 09:58 Sepsis reassessment post fluid Capillary Refill: < 3 seconds CC Plasma Assessment Blood Product Administration S: 1635 Date of Service: Jul 15, 2024 Billing Provider: RICARDO SCHREIBER MD Common Visit Codes: [id number] INP/OBS CARE(HIGH) HOOD DOTY Jul 15, 2024 15:08 RICARDO SCHREIBER MD Jul 15, 2024 21:15
[2024-07-16] VITALS (16 sets, daily range): BP systolic 115–131; BP diastolic 52–81; PULSE 62–91; RESP 16–18; TEMP 97.4–98.1; O2SAT 96–100
[2024-07-16 08:42] LABS: Basophils # (auto) 0 10 ^3/uL (0-0.2); Basophils % (auto) 0.4 % (0.0-2.0); Eosinophils # (auto) 0.2 10 ^3/uL (0-0.8); Eosinophils % (auto) 3.3 % (0.0-7.0); Hematocrit 30.7 % (36.0-46.0); Hemoglobin 9.8 g/dL (12.2-16.2); Lymphocytes # (auto) 1.1 10 ^3/uL (0.4-5.4); Lymphocytes % (auto) 14.8 % (10.0-50.0); Mean Corpuscular Hemoglobin 29.7 pg (28.0-32.0); Mean Corpuscular Volume 92.8 fL (80.0-100.0); Monocytes # (auto) 0.7 10 ^3/uL (0-1.3); Monocytes % (auto) 9.9 % (0.0-12.0); Neutrophils # (auto) 5.1 10 ^3/uL (1.6-8.6); Neutrophils % (auto) 71.6 % (37.0-80.0); Nucleated Red Blood Cells % 0.1 %; Platelet Count (auto) 261 10^3/uL (140-450); Red Blood Cells 3.31 10^6/uL (4.0-5.20); White Blood Cell 7.2 10^3/uL (4.4-10.8)
--- NOTE | 2024-07-16 09:03 | CONS ---
Pharmacy Clinical Information: From Heart Failure Potential Fallout Report on CQM Application, Rocio Muller is a 78 year old female with PMH of PAD, HTN, HLD, DM, CHF, COPD, GERD, OA, Afib, SSS, and hx of DVT, PE. LFTs are WNL. No recent lipid panel available. In patients > 75 years with ASCVD, potential benefits versus adverse effects of statin therapy should be considered before initiation of statin therapy. CONSUELO BAKER PHARMACIST Jul 16, 2024 09:03
--- NOTE | 2024-07-16 11:07 | DVHPNRES ---
Progress Note Date Seen: Jul 16, 2024 Resident Creating Document: HOOD DOTY RESIDENT Medical Necessity Reason Pt with a Central, PICC or Fol: No Subjective Review of Systems HPI: Rocio Muller is a 78-year-old female with past medical history of hypertension, hyperlipidemia, diabetes, CHF, COPD, diabetes, GERD, and hypothyroidism, who came in for shortness of breath. Patient states she has been becoming more short of breath over the last few days and that her legs have been hurting her. She states bilateral hip pain that radiates down her legs. Patient lives at home with a manager progressive care during the day and one at night. She is a poor historian and asked me to call her daytime strawhat blocking operator, Luz at [phone], she did not answer. Patient is not able to tell me what medications she is taking or why. Her profile shows Xarelto, patient can not tell me if she is taking that medication. I see that patient had a history of DVT, but scan showed no DVT at this time. Past Surgical History: Cholecystectomy, , Hernia Repair, Other (Pacemaker), Tonsillectomy History of right leg DVT, anemia, chronic respiratory failure on 2 L, AFib , COPD, CKD, hypothyroidism, peripheral artery disease, anemia of chronic disease, sick sinus syndrome status post pacemaker, pulmonary embolism, hypertension Peripheral angiogram on 11/21/2022: No significant peripheral vascular disease EGD on 10/29/2021: Mild gastritis, 4 cm sliding hiatal hernia Colonoscopy on 03/06/2019: Diverticulosis, no active GI bleed prior recommended capsule endoscopy. Patient seen and examined at bedside. Physical therapy today,feeling better, No new complains. ROS Constitutional: Complaining of generalized weakness HEENT: Denies changes in vision and hearing. Respiratory: Denies shortness of breath and cough Cardiovascular: Denies chest discomfort or palpitations GI: Denies abdominal pain, nausea, vomiting and diarrhea. : Denies dysuria and urinary frequency. Musculoskeletal: Denies myalgias and joint pain Skin: Denies rash and pruritus. Neurological: Denies dizziness, headache, vision or hearing problems Objective vital signs Vital Sign Date Time Temp Pulse Resp B/P (MAP) Pulse Ox O2 Delivery O2 Flow Rate FiO2 07/16/24 10:02 91 131/81 07/16/24 10:02 99 Nasal Cannula 2.0 07/16/24 10:02 28 07/16/24 08:18 97.4 17 97.4 Total Intake and Output 07/15/24 07/15/24 07/16/24 14:59 22:59 06:59 Intake Total 625 ml 425 ml Balance 625 ml 425 ml medications Current Medications Medications Dose Ordered Sig/Leonor Route Start Time Stop Time Status Last Admin Dose Admin Acetaminophen/ Hydrocodone Bitart 1 tab Q4HP PRN PO 07/13/24 11:00 Ondansetron HCl 4 mg Q4HP PRN IV 07/13/24 11:00 Docusate Sodium 100 mg BIDPRN PRN PO 07/13/24 11:00 Acetaminophen 650 mg Q6HP PRN PO 07/13/24 11:00 Ipratropium Max 0.5 mg Q4HPRN PRN NEB 07/13/24 11:00 07/13/24 22:29 0.5 MG Albuterol 2.5 mg Q4HPRN PRN NEB 07/13/24 11:00 07/14/24 16:36 2.5 MG Amiodarone HCl 200 mg BID PO 07/13/24 22:00 07/16/24 10:01 200 MG Ascorbic Acid 500 mg DAILY PO 07/14/24 10:00 07/16/24 10:01 500 MG Cholecalciferol 1,000 unit DAILY PO 07/14/24 10:00 07/16/24 10:01 1,000 UNIT Levothyroxine Sodium 75 mcg QAM PO 07/14/24 07:00 07/16/24 06:50 75 MCG Furosemide 40 mg DAILY IV 07/14/24 10:00 07/16/24 10:02 40 MG Diagnostic Test (Pha) 1 strip ACHS 07/13/24 22:00 07/16/24 06:50 1 STRIP Insulin Human Regular AC SC 07/14/24 07:00 Dextrose 50 ml UD PRN IV 07/13/24 17:45 Donepezil HCl 5 mg DAILY PO 07/15/24 10:00 07/16/24 10:01 5 MG Potassium Chloride 20 meq DAILY PO 07/15/24 10:00 07/16/24 10:02 20 MEQ Ferrous Sulfate 325 mg DAILY PO 07/15/24 10:00 07/16/24 10:01 325 MG Folic Acid 1 mg DAILY PO 07/15/24 10:00 07/16/24 10:01 1 MG Ipratropium Max 0.5 mg QID NEB 07/14/24 18:00 07/16/24 05:59 0.5 MG Metoprolol Succinate 25 mg DAILY PO 07/15/24 10:00 07/16/24 10:02 25 MG Albuterol 2.5 mg QID NEB 07/14/24 18:00 07/16/24 05:59 2.5 MG Examination General: Patient alert and oriented in person, place and time. Patient following commands. HEENT: Normocephalic, atraumatic, moist mucous membranes Respiratory/pulmonary: Clear lungs bilaterally, vesicular murmurs present in almost all lung alvarenga, no associated crackles or wheezes. Cardiovascular: Normal heart sounds S1 and S2 with no associated murmurs Abdomen: Abdomen nondistended, there is no pain to palpation in any of the abdominal quadrants, no palpable masses. Extremities: There is no peripheral edema present at the lower extremities. Peripheral Pulses: 3+ Radial (R). 3+ Radial (L). 3+ Dorsalis pedis (R). 3+ Dorsalis pedis(L) Skin: No rashes or pruritus, there is no sacral edema present at this time. Neurological: Intact cranial nerves with no focal neurologic deficits laboratory and microbiology Laboratory Tests 07/16/24 08:15 07/15/24 08:28 Test 07/15/24 08:28 Range/Units Serum Glucose 127 H 74-106 mg/dL Problem List/Assessment/Plan Problem List/Assessment/Plan Acute on chronic normocytic hypochromic severe anemia Acute diastolic CHF Chronic respiratory failure on oxygen via nasal cannula COPD no exacerbation Hypertension Hypothyroidism History of DVT and PE, not on anticoagulation given anemia, on amiodarone Sick sinus syndrome status post pacemaker, atrial paced rhythm Vitamin-D deficiency Plan/recommendation -Plan for physical therapy today -given 2 units of PRBCs, continue ferrous sulfate 325 mg p.o. daily, folic acid 1 mg p.o. daily. -Continue Lasix 40 mg p.o. daily, continue breathing rhythm albuterol and ipratropium BUN. -Echocardiogram 07/15/24:LVEF normal at 50-55%, Mild diastolic dysfunction -Continue amiodarone 200 mg p.o. b.i.d., not on anticoagulation given severe anemia -Levothyroxine 75 mcg p.o. daily for hypothyroidism -Continue vitamin-D 1000 IU once daily for vitamin-D deficiency -Pending stool occult blood given severe anemia. Goals of care discussed greater than 23 minutes, full code status. Plan discussed with Dr. Haile Plan discussed with: Patient, Other (RN) Dietary Evaluation Review Comments: Continue current plan of care Expected Outcomes/Goals: fu mod 3-5 days PO intake to meet 75% estimated needs Sepsis reassessment post fluid Capillary Refill: < 3 seconds CC Plasma Assessment Blood Product Administration S: 1635 Date of Service: Jul 16, 2024 Billing Provider: EUGENE HAILE DO Common Visit Codes: [id number] INP/OBS CARE(HIGH) HOOD DOTY RESIDENT Jul 16, 2024 11:07 EUGENE HAILE DO Jul 18, 2024 22:07
[2024-07-17] VITALS (11 sets, daily range): BP systolic 122–137; BP diastolic 52–71; PULSE 64–68; RESP 16–24; TEMP 97.7–98; O2SAT 96–100
[2024-07-17] MEDS: HYDROcodone-ACET 5/325MG TAB PO PRN (01:55)
[2024-07-17 07:00] LABS: Basophils # (auto) 0 10 ^3/uL (0-0.2); Basophils % (auto) 0.6 % (0.0-2.0); Eosinophils # (auto) 0.2 10 ^3/uL (0-0.8); Eosinophils % (auto) 2.9 % (0.0-7.0); Hematocrit 28.4 % (36.0-46.0); Hemoglobin 9.2 g/dL (12.2-16.2); Lymphocytes # (auto) 1.2 10 ^3/uL (0.4-5.4); Lymphocytes % (auto) 15.3 % (10.0-50.0); Mean Corpuscular Hemoglobin 29.7 pg (28.0-32.0); Mean Corpuscular Hgb Conc. 32.4 g/dL (32.0-36.0); Mean Corpuscular Volume 91.9 fL (80.0-100.0); Monocytes # (auto) 1.1 10 ^3/uL (0-1.3); Monocytes % (auto) 13.7 % (0.0-12.0); Neutrophils # (auto) 5.3 10 ^3/uL (1.6-8.6); Neutrophils % (auto) 67.5 % (37.0-80.0); Nucleated Red Blood Cells % 0.2 %; Platelet Count (auto) 213 10^3/uL (140-450); Red Blood Cells 3.08 10^6/uL (4.0-5.20); White Blood Cell 7.8 10^3/uL (4.4-10.8)
[2024-07-17 07:17] LABS: Red Cell Distribution Width 20.5 % (11.8-14.3)
[2024-07-17] MEDS: MORPHINE SULFATE INJ 2 MG/ml SYRG IV ONE (09:56)
--- NOTE | 2024-07-17 11:18 | DVH ---
EXAM: XY L ANKLE 2 VIEW XRAY, XY R ANKLE 2 VIEW XRAY CLINICAL INDICATION: ankle pain TECHNIQUE: XY L ANKLE 2 VIEW XRAY, XY R ANKLE 2 VIEW XRAY Comparison: None FINDINGS/IMPRESSION: There is no evidence of acute fracture or dislocation. Chronic distal fibula.
--- NOTE | 2024-07-17 15:00 | DVHDSRES ---
Discharge Summary Date of Admission Resident Creating Document: HOOD DOTY RESIDENT Jul 13, 2024 at 10:50 Date of Discharge: Jul 17, 2024 Admitting Diagnosis generalized weakness Labs/Diagnostic Data: Laboratory Results Test 07/17/24 11:39 07/17/24 04:48 07/15/24 08:28 07/14/24 13:57 POC Glucose 140 mg/dl (70-106) White Blood Count 7.8 10^3/uL (4.4-10.8) Red Blood Count 3.08 10^6/uL (4.0-5.20) Hemoglobin 9.2 g/dL (12.2-16.2) Hematocrit 28.4 % (36.0-46.0) Mean Corpuscular Volume 91.9 fL (80.0-100.0) Mean Corpuscular Hemoglobin 29.7 pg (28.0-32.0) Mean Corpuscular Hemoglobin Concent 32.4 g/dL (32.0-36.0) Red Cell Distribution Width 20.5 % (11.8-14.3) Platelet Count 213 10^3/uL (140-450) Mean Platelet Volume 7.0 fL (6.9-10.8) Neutrophils (%) (Auto) 67.5 % (37.0-80.0) Lymphocytes (%) (Auto) 15.3 % (10.0-50.0) Monocytes (%) (Auto) 13.7 % (0.0-12.0) Eosinophils (%) (Auto) 2.9 % (0.0-7.0) Basophils (%) (Auto) 0.6 % (0.0-2.0) Neutrophils # (Auto) 5.3 10 ^3/uL (1.6-8.6) Lymphocytes # (Auto) 1.2 10 ^3/uL (0.4-5.4) Monocytes # (Auto) 1.1 10 ^3/uL (0-1.3) Eosinophils # (Auto) 0.2 10 ^3/uL (0-0.8) Basophils # (Auto) 0 10 ^3/uL (0-0.2) Nucleated Red Blood Cells 0.2 % Prothrombin Time 10.4 sec (9.3-11.8) Prothrombin Time INR 0.98 (0.9-1.15) Activated Partial Thromboplast Time 23.1 SEC (24.5-34.5) Sodium Level 141 mmol/L (136-145) Potassium Level 3.8 mmol/L (3.5-5.1) Chloride Level 109 mmol/L (98-107) Carbon Dioxide Level 23 mmol/L (20-31) Anion Gap 9 (5-15) Blood Urea Nitrogen 26 mg/dL (9-23) Creatinine 0.87 mg/dL (0.550-1.02) Glomerular Filtration Rate Calc 68 mL/min (>90) BUN/Creatinine Ratio 29.9 (10.0-20.0) Serum Glucose 127 mg/dL (74-106) Calcium Level 9.8 mg/dL (8.7-10.4) Vitamin B12 Level 973 pg/mL (211-911) Vitamin D 25-Hydroxy 44.8 ng/mL (30.0-100) Folic Acid 37.89 ng/mL (>5.38) Test 07/14/24 06:51 07/13/24 12:00 07/13/24 10:58 07/13/24 09:50 Hemoglobin A1c 4.4 % A1C (<5.7) Total Bilirubin 0.3 mg/dL (0.2-1.0) Aspartate Amino Transferase (AST) 26 U/L (13-40) Alanine Aminotransferase (ALT) 20 U/L (7-40) Alkaline Phosphatase 87 U/L (46-116) Total Protein 5.8 g/dL (5.7-8.2) Albumin 3.3 g/dL (3.2-4.8) Thyroid Stimulating Hormone (TSH) 1.24 uIU/mL (0.55-4.78) Urine Color Light-yellow (Yellow) Urine Clarity Clear (Clear) Urine pH 6.5 (5.0-9.0) Urine Specific [place] 1.011 (1.001-1.035) Urine Protein Negative (Negative) Urine Ketones Negative (Negative) Urine Blood Negative /uL (Negative) Urine Nitrite Negative (Negative) Urine Bilirubin Negative (Negative) Urine Urobilinogen Normal mg/dL (Negative) Urine Leukocyte Esterase Negative /uL (Negative) Urine RBC <1 /hpf (0 - 4) Urine Microscopic WBC < 1 /HPF (0-5) Urine Squamous Epithelial Cells Few /hpf (<5) Urine Bacteria None seen /hpf (None Seen) Urine Glucose Normal mg/dL (Normal) Troponin I High Sensitivity 5 ng/L (</=34) Platelet Estimate Adequate Polychromasia Slight Hypochromasia (manual) Slight Anisocytosis (manual) Moderate Other Laboratory Tests 07/17/24 04:48 07/15/24 08:28 Brief Hx & Hospital Course: HPI: Rocio Muller is a 78-year-old female with past medical history of hypertension, hyperlipidemia, diabetes, CHF, COPD, diabetes, GERD, and hypothyroidism, who came in for shortness of breath. Patient states she has been becoming more short of breath over the last few days and that her legs have been hurting her. She states bilateral hip pain that radiates down her legs. Patient lives at home with a care navigator during the day and one at night. She is a poor historian and asked me to call her daytime assistant kitchen manager, Luz at [phone], she did not answer. Patient is not able to tell me what medications she is taking or why. Her profile shows Xarelto, patient can not tell me if she is taking that medication. I see that patient had a history of DVT, but scan showed no DVT at this time. Past Surgical History: Cholecystectomy, , Hernia Repair, Other (Pacemaker), Tonsillectomy History of right leg DVT, anemia, chronic respiratory failure on 2 L, AFib , COPD, CKD, hypothyroidism, peripheral artery disease, anemia of chronic disease, sick sinus syndrome status post pacemaker, pulmonary embolism, hypertension Peripheral angiogram on 11/21/2022: No significant peripheral vascular disease EGD on 10/29/2021: Mild gastritis, 4 cm sliding hiatal hernia Colonoscopy on 03/06/2019: Diverticulosis, no active GI bleed prior recommended capsule endoscopy. Hospital course: Patient came to the hospital with chief complaint of generalized weakness and mild bilateral lower extremity pain mainly located in ankle. Given chronic history of anemia, patient hemoglobin found to be 5.7 g per dL, received 2 unit of PRBCs, hemoglobin improved to 9.8. Given lower extremity edema, underwent ultrasound which was negative for deep vein thrombosis. Continue with Lasix 40 mg p.o. daily for possible diastolic CHF. Echocardiogram showed left ventricular ejection fraction of 50-55% and mild diastolic dysfunction. Given generalized weakness, patient was continued on physical therapy and continue home medication including amiodarone, levothyroxine and vitamin-D. Given severe anemia, patient is not on anticoagulation, however patient has history of DVT and PE. Given patient is hemodynamically stable, patient will be discharged home and advised to follow with primary care physician within one week. Condition at Discharge: Stable Final Diagnosis/Problems List Acute on chronic normocytic hypochromic severe anemia Acute diastolic CHF Chronic respiratory failure on oxygen via nasal cannula COPD no exacerbation Hypertension Hypothyroidism History of DVT and PE, not on anticoagulation given anemia, on amiodarone Sick sinus syndrome status post pacemaker, atrial paced rhythm Vitamin-D deficiency Discharge Disposition: Home Discharge Instruct/Medications Diet: Cardiac 2g Na,low cholest Activity: No Restrictions, As Tolerated Follow Up/Referral: -follow up with PCP in 2 weeks Medications: continue home medication Discharge Statement: "Patient was advised to return to the ER or call 911 if any headaches, dizziness, shortness of breath, chest pain, abdominal pain, bleeding, fevers, or worsening of medical condition. Patient was counseled about treatment plan, medications, possible side effects, patientverbalized understanding. All questions were answered to the best of my ability. This discharge took greater then 30 minutes in planning, reviewing documentation, counseling the patient, and discussing with other team members." ASSESSMENT ASSESSMENT Assessment Acute on chronic normocytic hypochromic severe anemia Acute diastolic CHF Chronic respiratory failure on oxygen via nasal cannula COPD no exacerbation Hypertension Hypothyroidism History of DVT and PE, not on anticoagulation given anemia, on amiodarone Sick sinus syndrome status post pacemaker, atrial paced rhythm Vitamin-D deficiency Date of Service: Jul 17, 2024 Billing Provider: EUGENE HAILE DO Common Visit Codes: [id number] DISCH DAY >30min HOOD DOTY RESIDENT Jul 17, 2024 15:00 EUGENE HAILE DO Jul 18, 2024 22:08
== END 2024-07-17 15:40 | disposition home or self-care (01) | DRG 811 ==
LOC: EDBD 08:36 → ER 08:36 → OVERFLOW 10:50 → WEST WING 21:20
PROVIDERS: ADMIT Internal Medicine; ATTEND Internal Medicine
PROC: 30233N1 Transfusion of Nonautologous Red Blood Cells into Peripheral Vein, Percutaneous Approach (ICD-10-PCS; principal; 2024-07-13)
PROC: 05H933Z Insertion of Infusion Device into Right Brachial Vein, Percutaneous Approach (ICD-10-PCS; 2024-07-13)
PROC: B54MZZA Ultrasonography of Right Upper Extremity Veins, Guidance (ICD-10-PCS; 2024-07-13)
DX: D50.9 Iron deficiency anemia, unspecified (principal); I50.31 Acute diastolic (congestive) heart failure; J96.10 Chronic respiratory failure, unspecified whether with hypoxia or hypercapnia; I11.0 Hypertensive heart disease with heart failure; J44.9 Chronic obstructive pulmonary disease, unspecified; E11.9 Type 2 diabetes mellitus without complications; E03.9 Hypothyroidism, unspecified; E55.9 Vitamin D deficiency, unspecified; K21.9 Gastro-esophageal reflux disease without esophagitis; E78.5 Hyperlipidemia, unspecified; Z90.49 Acquired absence of other specified parts of digestive tract; Z98.891 History of uterine scar from previous surgery; Z87.891 Personal history of nicotine dependence; Z88.1 Allergy status to other antibiotic agents; Z88.0 Allergy status to penicillin; Z86.718 Personal history of other venous thrombosis and embolism; Z95.0 Presence of cardiac pacemaker; Z86.711 Personal history of pulmonary embolism
CPT/HCPCS: 36415; 36430; 71045; 73600; 80048; 80053; 81001; 82306; 82607; 82746; 82962; 83036; 84443; 84484; 85025; 85610; 85730; 86850; 86900; 86901; 86920; 93005; 93306; 93970; 94640; 96374; 96375; 97163; 99291; 99292; G0378

== ENCOUNTER 2024-08-24 11:16 | Inpatient (IN) | payer OTHER, MEDICAID ==
[~2024-08-24] VITALS: Ht 149.9 cm; Wt 75.8 kg
[~2024-08-24 11:16] MED LIST changes: -AMLO1TAB23 PO; -CHOL20007 PO; -CYAN100T7 PO; -FLUT1AER6 IN; -FURO40TA4 PO; -IPRA0.00 NEB; -NAP500T PO; -OMEP20TA PO; -PANT40TA2 PO; -RIVA15TA PO
--- NOTE | 2024-08-24 12:08 | ED.PDOC ---
History of Present Illness HPI Comments 78-year-old female presents to the ER with daughter and with prior medical history of Anemia, Angina, Arthritis, CHF, COPD, DM, asthma, GERD, HTN, Thyroid; surgical history of Cholecystectomy, , Hernia Repair, Pacemaker, Tonsillectomy and a chief complaint of general weakness. Daughter reports that the patient has been fatigue with normal status of being able to walk but has been on to walk with a possibly weeks. Patient did have a blood transfusion last week with a current right lower extremity swelling. Patient states on just feeling weak. Denies chills, fever, N/V/D, SOB, CP. No other associated symptoms, modifiers, recent injuries or sick contacts present at this time. Chief Complaint: General Weakness Time Seen by MD: 11:55 Primary Care Provider: Vadim Reviewed Notes: Nurses Notes, Medications, Allergies Allergies: Coded Allergies: Atenolol (Verified Allergy, Mild, RASH/ITCHING, 12/18/20) Lisinopril (Verified Allergy, Mild, 12/18/20) Ciprofloxacin (Verified Allergy, Unknown, 11/20/22) Penicillin V (Verified Allergy, Unknown, 12/18/20) Home Meds Reported Medications Albuterol Sulfate (Albuterol Sulfate Hfa) 108 Mcg/Act Aer, 2 PUFF INH Q4HR for 50 Days, #54 07/14/24 Donepezil Hydrochloride (DONEPEZIL HCL) 5 Mg Tab, 1 TAB PO DAILY for 90 Days, #90 07/14/24 Docusate Sodium (Docusate Sodium) 100 Mg Cap, 1 CAP PO QHSP for 30 Days, #30 07/14/24 Ferrous Sulfate (Ferosul) 325 Mg Tab, 1 TAB PO DAILY for 90 Days, #90 07/14/24 Cetirizine HCl (Cetirizine Hydrochloride) 10 Mg Tab, 1 TAB PO DAILY for 90 Days, #90 07/14/24 Rivaroxaban (Xarelto Tablet) 20 Mg Tb, 1 TAB PO DAILY for 30 Days, #30 07/14/24 Omeprazole (Omeprazole Dr) 20 Mg Cap, 1 CAP PO DAILY for 90 Days, #90 07/14/24 Cholecalciferol (Gnp Vitamin D) 1,000 Unit Tab, 1 TAB PO DAILY for 30 Days, #30 07/14/24 Amiodarone HCl (Amiodarone HCl) 200 Mg Tab, 1 TAB PO BID 10/16/22 Metoprolol Succinate (Metoprolol Succinate Er) 25 Mg Tab, 1 TAB PO DAILY for 90 Days, #90 10/16/22 Ascorbic Acid (VITAMIN C TABLET) 500 Mg Tb, 500 MG PO DAILY 12/19/20 Folic Acid (Folic Acid) 1 Mg Tab, 1 MG PO DAILY for 30 Days, #30 02/26/20 Potassium Chloride (Klor-Con M20) 20 Meq Tab, 20 MEQ PO DAILY 12/31/11 Levothyroxine Sodium (Levothyroxine Sodium) 75 Mcg Tab, 75 MCG PO DAILY 12/31/11 Information Source: Patient, Relative (Child) Mode of Arrival: Wheelchair Severity: Moderate Timing: Weeks Duration: Since onset Prehospital treatment: None Past Medical History PAST MEDICAL HISTORY: Anemia, Angina, Arthritis, Asthma, CHF, COPD, DM, GERD, HTN, Thyroid Surgical History: Cholecystectomy, , Hernia Repair, Pacemaker, Tonsillectomy LPN CMA History: No Pertinent LPN CMA History Family History Family History: Reviewed,noncontributory to illness, Unknown Social History Smoker: Non-Smoker Alcohol: Denies ETOH Use Drugs: Denies Drug Use Lives In: Home Constitutional: reports: fatigue, weakness, others (Unable to walk for three weeks); denies: chills, diaphoresis, fever, malaise, sweats EENTM: denies: blurred vision, double vision, ear bleeding, ear discharge, ear drainage, ear pain, ear ringing, eye pain, eye redness, hearing loss, mouth pain, mouth swelling, nasal discharge, nose bleeding, nose congestion, nose pain, photophobia, tearing, throat pain, throat swelling, voice changes, others Respiratory: denies: cough, hemoptysis, orthopnea, SOB at rest, shortness of breath, SOB with excertion, stridor, wheezing, others Cardiovascular: reports: edema (RLE); denies: chest pain, dizzy spells, diaphoresis, Dyspnea on exertion, irregular heart beat, left arm pain, lightheadedness, palpitations, PND, syncope, others Gastrointestinal: denies: abdomen distended, abdominal pain, blood streaked bowels, constipated, diarrhea, dysphagia, difficulty swallowing, hematemesis, melena, nausea, poor appetite, poor fluid intake, rectal bleeding, rectal pain, vomiting, others Genitourinary: denies: abnormal vagina bleeding, burning, dyspareunia, dysuria, flank pain, frequency, hematuria, incontinence, pain, , vagina discharge, urgency, others Neurological: denies: dizziness, fainting, headache, left sided numbness, left sided weakness, numbness, paresthesia, pre-existing deficit, right sided numbness, right sided weakness, seizure, speech problems, tingling, tremors, weakness, others Musculoskeletal: denies: back pain, gout, joint pain, joint swelling, muscle pain, muscle stiffness, neck pain, others Integumetry: denies: bruises, change in color, change in hair/nails, dryness, laceration, lesions, lumps, rash, wounds, others Allergic/Immunocompromised: denies: Difficulty Healing, Frequent Infections, Hives, Itching, others Hematologic/Lymphatic: denies: anemia, blood clots, easy bleeding, easy bruising, swollen glands, others Endocrine: denies: excessive hunger, excessive sweating, excessive thirst, excessive urination, flushing, intolerance to cold, intolerance to heat, unexplained weight gain, unexplained weight loss, others Psychiatric: denies: anxiety, bipolar disorder, depression, hopeless, panic disorder, schizophrenia, sleepless, suicidal, others All Other Systems: Reviewed and Negative Physical Exam General Appearance: Moderate Distress, Normal HEENT: Normal ENT Inspection, Pharynx Normal, TMs Normal Neck: Full Range of Motion, Non-Tender, Normal, Normal Inspection Respiratory: Chest Non-Tender, Lungs Clear, No Accessory Muscle Use, No Respiratory Distress, Normal Breath Sounds Cardiovascular: No Edema, No JVD, No Murmur, No Gallop, Normal Peripheral Pulses, Regular Rate/Rhythm Breast Exam: Deferred Gastrointestinal: No Organomegaly, Non Tender, No Pulsatile Mass, Normal Bowel Sounds, Soft Genitalia: Deferred Pelvic: Deferred Rectal: Deferred Extremities: No calf tenderness, Normal capillary refill, Normal range of motion, Non-tender, Pedal edema Musculoskeletal : Apperance: Normal Neurologic: Alert, horses or mules teamster II-XII nml as Tested, No Motor Deficits, Normal Affect, Normal Mood, No Sensory Deficits Cerebellar Function: NOT DONE Reflexes: NOT DONE Skin: Dry, Normal Color, Warm Peripheral Pulses: 3+ Radial (R), 3+ Radial (L) Lymphatic: No Adenopathy Was a procedure done? Was a procedure done?: No EKG EKG : Pulse Rate (adult): 65 [place]: Normal Cardiac Rhythm: NSR Block: None Hypertrophy: None ST: Normal Differential Dx Considerations may include: Anemia Electrolyte imbalance X-Ray, Labs, Meds, VS Vital Signs Date Time Temp Pulse Resp B/P (MAP) Pulse Ox O2 Delivery O2 Flow Rate FiO2 08/24/24 12:08 65 08/24/24 12:05 97.6 65 13 110/47 (68) 99 97.6 08/24/24 12:00 65 08/24/24 11:28 97.5 71 20 111/35 (60) 95 97.5 08/24/24 11:28 65 Lab Test 08/24/24 15:30 08/24/24 14:30 08/24/24 11:30 Range/Units Urine Color Colorless Yellow Urine Clarity Turbid H Clear Urine pH 6.0 5.0-9.0 Urine Specific [place] 1.017 1.001-1.035 Urine Protein Negative Negative Urine Ketones Negative Negative Urine Blood Negative Negative /uL Urine Nitrite 1+ H Negative Urine Bilirubin Negative Negative Urine Urobilinogen Normal Negative mg/dL Urine Leukocyte Esterase 3+ Negative /uL Urine RBC 5 0 - 4 /hpf Urine Microscopic WBC 379 H 0-5 /HPF Urine Squamous Epithelial Cells Few <5 /hpf Urine Bacteria Few H None Seen /hpf Urine Mucus Few None Seen Urine Glucose Normal Normal mg/dL White Blood Count 7.8 4.4-10.8 10^3/uL Red Blood Count 2.24 L 4.0-5.20 10^6/uL Hemoglobin 6.7 *L 12.2-16.2 g/dL Hematocrit 21.1 L 36.0-46.0 % Mean Corpuscular Volume 94.2 80.0-100.0 fL Mean Corpuscular Hemoglobin 30.1 28.0-32.0 pg Mean Corpuscular Hemoglobin Concent 32.0 32.0-36.0 g/dL Red Cell Distribution Width 19.5 H 11.8-14.3 % Platelet Count 240 140-450 10^3/uL Mean Platelet Volume 7.6 6.9-10.8 fL Neutrophils (%) (Auto) 71.2 37.0-80.0 % Lymphocytes (%) (Auto) 14.0 10.0-50.0 % Monocytes (%) (Auto) 12.2 H 0.0-12.0 % Eosinophils (%) (Auto) 1.7 0.0-7.0 % Basophils (%) (Auto) 0.9 0.0-2.0 % Neutrophils # (Auto) 5.6 1.6-8.6 10 ^3/uL Lymphocytes # (Auto) 1.1 0.4-5.4 10 ^3/uL Monocytes # (Auto) 1.0 0-1.3 10 ^3/uL Eosinophils # (Auto) 0.1 0-0.8 10 ^3/uL Basophils # (Auto) 0.1 0-0.2 10 ^3/uL Nucleated Red Blood Cells 0.1 % Sodium Level 151 H 136-145 mmol/L Potassium Level 3.8 3.5-5.1 mmol/L Chloride Level 121 H 98-107 mmol/L Carbon Dioxide Level 20 20-31 mmol/L Anion Gap 10 5-15 Blood Urea Nitrogen 83 *H 9-23 mg/dL Creatinine 1.96 H 0.550-1.02 mg/dL Glomerular Filtration Rate Calc 26 >90 mL/min BUN/Creatinine Ratio 42.3 H 10.0-20.0 Serum Glucose 70 L 74-106 mg/dL Calcium Level 10.0 8.7-10.4 mg/dL POC Glucose 105 70-106 mg/dl Patient alert. Complaining of generalized weakness. Vitals stable. Answering questions. She is short of breath upon walking. She can barely walk without assistance. BUN creatinine elevated. Possible ATN. Hemoglobin is low. Blood transfusion. Explained to the family. Sodium level slightly elevated. Nephrology consultation. Spoke with her primary care physician. Continue to monitor. Time of 1ST Reevaluation: 12:25 Reevaluation 1ST: Unchanged Patient Education/Counseling: Diagnosis, Treatment, Prognosis Family Education/Counseling: Diagnosis, Treatment, Prognosis Departure 1 Departure Time of Disposition: 15:48 Impression: Primary Impression: Symptomatic anemia Additional Impressions: Acute tubular necrosis Hypernatremia Disposition: ADMITTED INPATIENT Admit to: Med Surg Condition: Guarded Critical Care Note Critical Care Time?: Yes (90 min-critical care time only) Critical care comment: Symptomatic anemia continue to monitor Stability Stability form required: No Heart Score Heart Score: Heart Score Response (Comments) Value History Slightly Suspicious 0 EKG Normal 0 Age >65 2 Risk Factors >3 or Hx ASHD 2 Troponin Normal limit 0 Total 4 I personally scribed for LIO PATRICK MD ([email or web address]) on 08/24/24 at 12:08. Electronically submitted by Hayden Simons ([email or web address]). LIO PATRICK MD Aug 24, 2024 12:08
[2024-08-24 14:55] LABS: Eosinophils # (auto) 0.1 10 ^3/uL (0-0.8); Lymphocytes # (auto) 1.1 10 ^3/uL (0.4-5.4); Monocytes % (auto) 12.2 % (0.0-12.0); Nucleated Red Blood Cells % 0.1 %
[2024-08-24 14:57] LABS: Basophils # (auto) 0.1 10 ^3/uL (0-0.2); Basophils % (auto) 0.9 % (0.0-2.0); Eosinophils % (auto) 1.7 % (0.0-7.0); Hematocrit 21.1 % (36.0-46.0); Mean Corpuscular Hemoglobin 30.1 pg (28.0-32.0); Mean Corpuscular Volume 94.2 fL (80.0-100.0); Neutrophils # (auto) 5.6 10 ^3/uL (1.6-8.6); Neutrophils % (auto) 71.2 % (37.0-80.0); Platelet Count (auto) 240 10^3/uL (140-450); Red Blood Cells 2.24 10^6/uL (4.0-5.20); Red Cell Distribution Width 19.5 % (11.8-14.3); White Blood Cell 7.8 10^3/uL (4.4-10.8)
[2024-08-24 15:05] LABS: Hemoglobin 6.7 g/dL (12.2-16.2); Potassium 3.8 mmol/L (3.5-5.1)
[2024-08-24 15:06] LABS: Anion Gap 10 (5-15); Carbon Dioxide 20 mmol/L (20-31)
[2024-08-24 15:08] LABS: Chloride 121 mmol/L (98-107); Sodium 151 mmol/L (136-145)
[2024-08-24 15:11] LABS: BUN/Creatinine Ratio 42.3 (10.0-20.0)
[2024-08-24 15:19] LABS: Blood Urea Nitrogen 83 mg/dL (9-23); Glucose 70 mg/dL (74-106)
[2024-08-24 15:52] LABS: Urine Bacteria FEW /hpf (None Seen); Urine Blood Negative /uL (Negative); Urine Clarity Turbid (Clear); Urine Color Colorless (Yellow); Urine Mucus FEW (None Seen); Urine Protein, UAD Negative (Negative); Urine Specific Gravity 1.017 (1.001-1.035); Urine Squamous Epithelial Cell FEW /hpf (<5); Urine Urobilinogen Normal (Negative); Urine WBC 379 /HPF (0-5)
[2024-08-24] MEDS ORDERED: NITROFURANTOIN 100 mg CAP PO ONE (17:45)
[2024-08-24] MEDS ORDERED: ONDANSETRON HCL 4 MG/2 ML VIAL IV PRN (17:45)
[2024-08-24] MEDS ORDERED: DEXTROSE (50%) 50ML SYRG IV PRN (17:45)
[2024-08-24] MEDS ORDERED: ACETAMINOPHEN 325 MG TAB PO PRN (17:45)
[2024-08-24 17:54] VITALS: BP 133/54; PULSE 65; RESP 10; TEMP 98.2
[2024-08-24 18:15] VITALS: BP 148/55; PULSE 65; RESP 17; TEMP 98.3
[2024-08-24] MEDS ORDERED: diphenhdrAMINE HCL 50 MG/1 ML VL IV PRN (18:45)
--- NOTE | 2024-08-24 19:25 | DVHHP2 ---
History of Present Illness Reason for Visit: Symptomatic anemia History of Present Illness The patient is a 78-year-old female with multiple past medical history including angina, CHF, COPD, and hypertension who presented to [facility] ED with complaint of generalized weakness. Patient reports she has been experie ncing fatigue, increased weakness, unable to work for 3 weeks, getting worse today that prompted this visit. Patient was seen and evaluated in the ED, WBC 7.8, hemoglobin 6.7, hematocrit 21.1, platelets 240, sodium 151, potassium 3.6, BUN 83, creatinine 1.96, glucose 70, calcium 10.0, blood pressure 110/47, heart rate 65, temperature 97.6 F, O2 saturation 99% on oxygen. Urinalysis positive for urinary tract infection. Patient was started on IV Rocephin given very low sensitivity penicillin allergy, IV Benadryl, will receive 1 unit PRBC, please see medication orders section in the computer. On my assessment, patient denied chest pain, no headache, no dizziness, currently on oxygen, no diaphoresis, no diarrhea, no nausea, no vomiting, no fever, no chills. Patient was admitted for further evaluation and medical management. Past Medical History Anemia, Angina, Arthritis, Asthma, CHF, COPD, DM, GERD, HTN, Thyroid Past Surgical History Cholecystectomy, , Hernia Repair, Pacemaker, Tonsillectomy Family History Reviewed, noncontributory to the management of this case. Past Social History The patient lives at home, denies smoking, alcohol or illicit drugs abuse. Review of Systems Constitutional: Yes: Weakness, Other (Fatigue); No: Fever, Chills, Sweats, Malaise Eyes: No: Pain, Vision change, Conjunctivae inflammation, Eyelid inflammation, Other, Redness ENT: No: Ear pain, Ear discharge, Nose pain, Nose discharge, Nose congestion, Mouth pain, Mouth swelling, Throat pain, Throat swelling, Other Respiratory: No: Cough, Dry, Shortness of breath, SOB with excertion, Wheezing, Hemoptysis, Pleuritic Pain, Sputum, Wheezing, Other Cardiovascular: No: Chest Pain, Palpitations, Orthopnea, Paroxysmal Noc. Dyspnea, Edema, Lt Headedness, Other Gastrointestinal: No: Nausea, Vomiting, Abdominal Pain, Diarrhea, Constipation, Melena, Hematochezia, Other Genitourinary: No Dysuria, No Frequency, No Incontinence, No Hematuria, No Retention, No Other Musculoskeletal: other (Unable to walk for three weeks); No: neck pain, shoulder pain, arm pain, back pain, hand pain, leg pain, foot pain Skin: No: Rash, Lesions, Jaundice, Bruising, Other Neurological: No: Weakness, Numbness, Incoordination, Change in speech, Confusion, Seizures, Other Allergies: Coded Allergies: Atenolol (Verified Allergy, Mild, RASH/ITCHING, 12/18/20) Lisinopril (Verified Allergy, Mild, 12/18/20) Ciprofloxacin (Verified Allergy, Unknown, 11/20/22) Penicillin V (Verified Allergy, Unknown, 12/18/20) Medications Current Medications Medications Dose Ordered Sig/Leonor Route Start Time Stop Time Status Last Admin Dose Admin Famotidine 20 mg Q2D IV 08/25/24 10:00 Levothyroxine Sodium 75 mcg QAM@0600 PO 08/25/24 06:00 Aspirin 81 mg DAILY PO 08/25/24 10:00 Diagnostic Test (Pha) 1 strip ACHS 08/24/24 22:00 Insulin Human Regular ACHS SC 08/24/24 22:00 Dextrose 50 ml UD PRN IV 08/24/24 17:45 Sodium Chloride 10 ml Q8HR IV 08/24/24 22:00 Acetaminophen/ Hydrocodone Bitart 1 tab Q4HP PRN PO 08/24/24 17:45 Ondansetron HCl 4 mg Q4HP PRN IV 08/24/24 17:45 Docusate Sodium 100 mg BIDPRN PRN PO 08/24/24 17:45 Acetaminophen 650 mg Q6HP PRN PO 08/24/24 17:45 Ceftriaxone Sodium 50 ml @ 100 mls/hr DAILY@09 IV 08/25/24 09:00 Diphenhydramine HCl 25 mg Q4HP PRN IV 08/24/24 18:45 Exam Vital Signs Vital Signs Date Time Temp Pulse Resp B/P (MAP) Pulse Ox O2 Delivery O2 Flow Rate FiO2 08/24/24 18:15 98.3 65 17 148/55 98.3 08/24/24 18:00 100 General Appearance: Alert, Oriented X3, Cooperative, No acute distress HEENT: Atraumatic, PERRLA, EOMI, Mucous membr. moist/pink Respiratory: Clear to auscultation, Normal air movement Cardiovascular: Regular rate, Normal S1, Normal S2, No murmurs Abdominal: Normal bowel sounds, Soft, No tenderness, No hepatospenomegaly Extremities: No clubbing, No cyanosis, No edema, Normal pulses, No tenderness/swelling Skin: No rashes, No breakdown, No significant lesion Neuro: Normal speech, Normal tone, Sensation intact, Cranial nerves 3-12 NL, Reflexes 2+, Other (Generalized weakness) Psych/Mental Status: Mental status NL, Mood NL Labs/Xrays Labs Test 08/24/24 15:30 08/24/24 14:30 08/24/24 11:30 Range/Units Urine Color Colorless Yellow Urine Clarity Turbid H Clear Urine pH 6.0 5.0-9.0 Urine Specific [place] 1.017 1.001-1.035 Urine Protein Negative Negative Urine Ketones Negative Negative Urine Blood Negative Negative /uL Urine Nitrite 1+ H Negative Urine Bilirubin Negative Negative Urine Urobilinogen Normal Negative mg/dL Urine Leukocyte Esterase 3+ Negative /uL Urine RBC 5 0 - 4 /hpf Urine Microscopic WBC 379 H 0-5 /HPF Urine Squamous Epithelial Cells Few <5 /hpf Urine Bacteria Few H None Seen /hpf Urine Mucus Few None Seen Urine Glucose Normal Normal mg/dL White Blood Count 7.8 4.4-10.8 10^3/uL Red Blood Count 2.24 L 4.0-5.20 10^6/uL Hemoglobin 6.7 *L 12.2-16.2 g/dL Hematocrit 21.1 L 36.0-46.0 % Mean Corpuscular Volume 94.2 80.0-100.0 fL Mean Corpuscular Hemoglobin 30.1 28.0-32.0 pg Mean Corpuscular Hemoglobin Concent 32.0 32.0-36.0 g/dL Red Cell Distribution Width 19.5 H 11.8-14.3 % Platelet Count 240 140-450 10^3/uL Mean Platelet Volume 7.6 6.9-10.8 fL Neutrophils (%) (Auto) 71.2 37.0-80.0 % Lymphocytes (%) (Auto) 14.0 10.0-50.0 % Monocytes (%) (Auto) 12.2 H 0.0-12.0 % Eosinophils (%) (Auto) 1.7 0.0-7.0 % Basophils (%) (Auto) 0.9 0.0-2.0 % Neutrophils # (Auto) 5.6 1.6-8.6 10 ^3/uL Lymphocytes # (Auto) 1.1 0.4-5.4 10 ^3/uL Monocytes # (Auto) 1.0 0-1.3 10 ^3/uL Eosinophils # (Auto) 0.1 0-0.8 10 ^3/uL Basophils # (Auto) 0.1 0-0.2 10 ^3/uL Nucleated Red Blood Cells 0.1 % Sodium Level 151 H 136-145 mmol/L Potassium Level 3.8 3.5-5.1 mmol/L Chloride Level 121 H 98-107 mmol/L Carbon Dioxide Level 20 20-31 mmol/L Anion Gap 10 5-15 Blood Urea Nitrogen 83 *H 9-23 mg/dL Creatinine 1.96 H 0.550-1.02 mg/dL Glomerular Filtration Rate Calc 26 >90 mL/min BUN/Creatinine Ratio 42.3 H 10.0-20.0 Serum Glucose 70 L 74-106 mg/dL Calcium Level 10.0 8.7-10.4 mg/dL B-Type Natriuretic Peptide 39.99 0-100 pg/mL Thyroid Stimulating Hormone (TSH) 0.79 0.55-4.78 uIU/mL POC Glucose 105 70-106 mg/dl Assessment/Plan Assessment/Plan Symptomatic anemia Hypernatremia Urinary tract infection Acute tubular necrosis Generalized weakness Plan 1. Admit to telemetry unit 2. Breathing treatment 3. Pain control management 4. IV antibiotic management 5. Management of fluids and electrolytes 6. Consultation for hospitalist 7. Diagnostic test chest x-ray 8. DVT prophylaxis-on aspirin 9. Repeat labs CBC, CMP in a.m. 10. Home medication reviewed and reconciled 11. Continue with current medical management 12. Treatment plan discussed with patient and RN. Patient verbalized understanding. Plan discussed with: Patient, Other (RN) My Orders Orders - ALINA ALTAMIRANO DNP Procedure Category Date Status Time Urine Bacterial ARON 08/24/24 In Process Culture 17:32 Consistent DIET 08/24/24 Transmitted Carb(Ccho)Diabetes Dinner Famotidine Injection PHA 08/25/24 In Process (Pepcid Injection) 10:00 *Dr. Man Group CONS 08/24/24 Transmitted -[place] 17:32 Levothyroxine Tablet PHA 08/25/24 In Process (Synthroid Tablet) 06:00 Aspirin Tablet PHA 08/25/24 In Process 10:00 Glucose Blood PHA 08/24/24 In Process (Accu-Chek Comfort 22:00 Insulin R (Human) PHA 08/24/24 In Process (Insulin R) 22:00 Dextrose 50% Syringe PHA 08/24/24 In Process 17:45 Allergies MARGI 08/24/24 In Process 17:32 Code Status CODE 08/24/24 Transmitted 17:32 Sodium Chloride Lock PHA 08/24/24 In Process (Saline Lock Ns) 22:00 Oxygen Per Hour RT 08/24/24 Transmitted 17:32 Hydrocodone-Acet PHA 08/24/24 In Process 5/325mg Tab ([place] 17:45 Ondansetron Hcl PHA 08/24/24 In Process (Zofran) 17:45 Docusate Sodium PHA 08/24/24 In Process Capsule (Colace 17:45 Fall Risk Precautions MARGI 08/24/[address] 17:32 Complete Blood Count LAB 08/25/24 Verified 04:00 Comprehensive LAB 08/25/24 Verified Metabolic Panel 04:00 Condition: Critical MARGI 08/24/24 In Process 17:32 Acetaminophen Tablet PHA 08/24/24 In Process (Tylenol Tablet) 17:45 Bedrest With Bathroom MARGI 08/24/24 In Process Privileg 17:32 Maintain Bed Rest MARGI 08/24/24 In Process 17:32 Sequential MARGI 08/24/24 In Process Compression Device Ceftriaxone 1gm/50ml PHA 08/25/24 In Process D5w (Rocephin) 09:00 Diphenhdramine PHA 08/24/24 In Process Injection (Benadryl 18:45 Admit ADMIT 08/24/24 Verified 19:24 Nitroglycerin PHA 08/24/24 Verified Sublingual (Ntrostat 19:30 Morphine Sulfate PHA 08/24/24 Verified Injection 19:30 Notify Of Changes MARGI 08/24/24 Verified From Base 19:24 Polymer Tester For MARGI 08/24/24 Verified 24 Hours 19:24 Emergency Dysrhythmia MARGI 08/24/24 Verified Protocol 19:24 Rhythm Strips Once MARGI 08/24/24 Verified Every Shift 19:24 Oxygen By Nasal RT 08/24/24 Verified Cannula 19:24 Problem List: (1) Symptomatic anemia (2) Hypernatremia (3) Acute tubular necrosis (4) UTI (urinary tract infection) (5) Generalized weakness Date of Service: Aug 24, 2024 Billing Provider: ALINA ALTAMIRANO DNP Common Visit Codes: [id number] INP/OBS CARE (HIGH) ALINA ALTAMIRANO DNP Aug 24, 2024 19:25
[2024-08-24] MEDS ORDERED: NITROGLYCERIN 0.4 MG SL TAB SL PRN (19:30)
[2024-08-24] MEDS ORDERED: MORPHINE SULFATE INJ 2 MG/ml SYRG IV PRN (19:30)
[2024-08-24 20:15] VITALS: BP 123/45; PULSE 65; RESP 14; TEMP 97.6
[2024-08-24] MEDS: cefTRIAXone 1GM/50ML D5W 50 ML IV ONE (20:27)
[2024-08-24] MEDS: SODIUM CHLOR 0.9% PF (SALINE LOCK) 10ML VIAL/SYR IV SCH (22:00)
[2024-08-24] MEDS: ACCU-CHEK COMFORT CURVE STRIP VI SCH (22:00)
[2024-08-24] MEDS ORDERED: PHENAZOPYRIDINE HCL 100 MG TAB PO SCH (22:00)
[2024-08-24] MEDS ORDERED: NITROFURANTOIN 100 mg CAP PO SCH (22:00)
[2024-08-24 22:39] VITALS: BP 147/42; PULSE 65; RESP 17; RESP 20; TEMP 97.7; O2SAT 100; O2SAT 96; O2SAT 99
[2024-08-24] MEDS: InsuLIN REG 1unit/0.01ml Soln (100units/ml) SC SCH (23:00)
[2024-08-24 23:19] VITALS: PULSE 65; RESP 18; O2SAT 100
[2024-08-24] MEDS: IPRATROPIUM BROM 0.5 MG/2.5ML INH SOL NEB PRN (23:19)
[2024-08-24] MEDS: ALBUTEROL SULF 2.5 MG/0.5ML(0.5%) NEB SOLN NEB PRN (23:19)
[2024-08-24 23:29] VITALS: PULSE 71; RESP 18; O2SAT 100
[2024-08-25] VITALS (20 sets, daily range): BP systolic 131–159; BP diastolic 40–91; PULSE 62–68; RESP 16–22; TEMP 97.6–98.1; O2SAT 98–100
[2024-08-25] MEDS: IPRATROPIUM BROM 0.5 MG/2.5ML INH SOL NEB SCH (02:04)
[2024-08-25] MEDS: ALBUTEROL SULF 2.5 MG/0.5ML(0.5%) NEB SOLN NEB SCH (02:04)
[2024-08-25] MEDS: LEVOTHYROXINE SODIUM 25 MCG TAB PO SCH (06:00)
[2024-08-25 07:08] LABS: Basophils # (auto) 0.1 10 ^3/uL (0-0.2); Basophils % (auto) 0.8 % (0.0-2.0); Eosinophils # (auto) 0.1 10 ^3/uL (0-0.8); Eosinophils % (auto) 1.6 % (0.0-7.0); Hematocrit 24.8 % (36.0-46.0); Lymphocytes # (auto) 0.6 10 ^3/uL (0.4-5.4); Lymphocytes % (auto) 7.6 % (10.0-50.0); Mean Corpuscular Hemoglobin 31.1 pg (28.0-32.0); Mean Corpuscular Hgb Conc. 32.4 g/dL (32.0-36.0); Mean Corpuscular Volume 95.9 fL (80.0-100.0); Monocytes # (auto) 0.7 10 ^3/uL (0-1.3); Monocytes % (auto) 8.3 % (0.0-12.0); Neutrophils # (auto) 6.6 10 ^3/uL (1.6-8.6); Neutrophils % (auto) 81.7 % (37.0-80.0); Nucleated Red Blood Cells % 0.1 %; Platelet Count (auto) 250 10^3/uL (140-450); Red Blood Cells 2.58 10^6/uL (4.0-5.20); Red Cell Distribution Width 18.5 % (11.8-14.3); White Blood Cell 8.1 10^3/uL (4.4-10.8)
[2024-08-25 07:21] LABS: Alanine Aminotransferase 21 U/L (7-40); Alkaline Phosphatase 69 U/L (46-116); Anion Gap 11 (5-15); Aspartate Aminotransferase 33 U/L (13-40); BUN/Creatinine Ratio 36.3 (10.0-20.0); Calcium 9.6 mg/dL (8.7-10.4); Glucose 78 mg/dL (74-106); Magnesium 2.2 mg/dL (1.6-2.6)
[2024-08-25 07:22] LABS: Bilirubin, Total 0.5 mg/dL (0.2-1.0)
[2024-08-25 07:23] LABS: Albumin 3.2 g/dL (3.2-4.8); Blood Urea Nitrogen 45 mg/dL (9-23); Carbon Dioxide 19 mmol/L (20-31); Chloride 121 mmol/L (98-107); Potassium 3.1 mmol/L (3.5-5.1); Sodium 151 mmol/L (136-145); Total Protein 5.4 g/dL (5.7-8.2)
[2024-08-25] MEDS: ASPirin 81 mg TAB PO SCH (09:05)
[2024-08-25] MEDS: cefTRIAXone 1GM/50ML D5W 50 ML IV SCH (09:05)
[2024-08-25] MEDS: FAMOTIDINE (10MG/ML) 2ML VL IV SCH (09:05)
[2024-08-25] MEDS: HYDROcodone-ACET 5/325MG TAB PO PRN (09:05)
--- NOTE | 2024-08-25 10:16 | DVHINCON2 ---
Date of service: Aug 25, 2024 Referring Physician Rudolph Nixon, nurse practitioner Reason for Consultation Patient is a 78-year-old female with past medical history significant for Anemia, Angina, Arthritis, Asthma, CHF, COPD, DM, GERD, HTN, and hypothyroidism is admitted for symptomatic anemia. Patient on admission found to have elevated BUN creatinine nephrology is consulted for acute kidney injury Past Medical History PAST MEDICAL HISTORY: Anemia, Angina, Arthritis, Asthma, CHF, COPD, DM, GERD, HTN, Thyroid Past Surgical History Surgical History: Cholecystectomy, , Hernia Repair, Pacemaker, Tonsill ectomy Allergies: Coded Allergies: Atenolol (Verified Allergy, Mild, RASH/ITCHING, 12/18/20) Lisinopril (Verified Allergy, Mild, 12/18/20) Ciprofloxacin (Verified Allergy, Unknown, 11/20/22) Penicillin V (Verified Allergy, Unknown, 12/18/20) Home Meds Reported Medications Albuterol Sulfate (Albuterol Sulfate Hfa) 108 Mcg/Act Aer, 2 PUFF INH Q4HR for 50 Days, #54 07/14/24 Donepezil Hydrochloride (DONEPEZIL HCL) 5 Mg Tab, 1 TAB PO DAILY for 90 Days, #90 07/14/24 Docusate Sodium (Docusate Sodium) 100 Mg Cap, 1 CAP PO QHSP for 30 Days, #30 07/14/24 Ferrous Sulfate (Ferosul) 325 Mg Tab, 1 TAB PO DAILY for 90 Days, #90 07/14/24 Cetirizine HCl (Cetirizine Hydrochloride) 10 Mg Tab, 1 TAB PO DAILY for 90 Days, #90 07/14/24 Rivaroxaban (Xarelto Tablet) 20 Mg Tb, 1 TAB PO DAILY for 30 Days, #30 07/14/24 Omeprazole (Omeprazole Dr) 20 Mg Cap, 1 CAP PO DAILY for 90 Days, #90 07/14/24 Cholecalciferol (Gnp Vitamin D) 1,000 Unit Tab, 1 TAB PO DAILY for 30 Days, #30 07/14/24 Amiodarone HCl (Amiodarone HCl) 200 Mg Tab, 1 TAB PO BID 10/16/22 Metoprolol Succinate (Metoprolol Succinate Er) 25 Mg Tab, 1 TAB PO DAILY for 90 Days, #90 10/16/22 Ascorbic Acid (VITAMIN C TABLET) 500 Mg Tb, 500 MG PO DAILY 12/19/20 Folic Acid (Folic Acid) 1 Mg Tab, 1 MG PO DAILY for 30 Days, #30 02/26/20 Potassium Chloride (Klor-Con M20) 20 Meq Tab, 20 MEQ PO DAILY 12/31/11 Levothyroxine Sodium (Levothyroxine Sodium) 75 Mcg Tab, 75 MCG PO DAILY 12/31/11 Current Medications Current Medications Medications (Trade) Dose Ordered Sig/Leonor Route PRN Reason Start Time Stop Time Status Last Admin Famotidine (Pepcid Injection) 20 mg Q2D IV 08/25/24 10:00 08/25/24 09:05 Nitrofurantoin Macrocrystals (Macrobid) 100 mg BID PO 08/24/24 22:00 08/24/24 18:39 DC Phenazopyridine HCl (Pyridium Tablet) 200 mg TID PO 08/24/24 22:00 08/24/24 18:39 DC Levothyroxine Sodium (Synthroid Tablet) 75 mcg QAM@0600 PO 08/25/24 06:00 08/25/24 06:00 Aspirin 81 mg DAILY PO 08/25/24 10:00 08/25/24 09:05 Diagnostic Test (Pha) (Accu-Chek Comfort Curve T) 1 strip ACHS 08/24/24 22:00 08/24/24 22:00 Insulin Human Regular (InsuLIN R) ACHS SC 08/24/24 22:00 Dextrose 50 ml UD PRN IV Blood Sugar LESS THAN 60 08/24/24 17:45 Sodium Chloride (Saline Lock Ns) 10 ml Q8HR IV 08/24/24 22:00 08/25/24 06:00 Acetaminophen/ Hydrocodone Bitart ([place] 5/325MG Tab) 1 tab Q4HP PRN PO MODERATE PAIN (4-6 PAIN SCALE) 08/24/24 17:45 08/25/24 09:05 Ondansetron HCl (Zofran) 4 mg Q4HP PRN IV NAUSEA / VOMITING 08/24/24 17:45 Docusate Sodium (Colace Capsule) 100 mg BIDPRN PRN PO FOR CONSTIPATION 08/24/24 17:45 Acetaminophen (Tylenol Tablet) 650 mg Q6HP PRN PO PAIN SCALE 1-3 OR TEMP>100.4 08/24/24 17:45 Ceftriaxone Sodium 50 ml @ 100 mls/hr DAILY@09 IV 08/25/24 09:00 08/25/24 09:05 Diphenhydramine HCl (Benadryl Injection) 25 mg Q4HP PRN IV FOR ITCHING 08/24/24 18:45 Nitroglycerin (Ntrostat Sublingual) 0.4 mg Q5MINP PRN SL FOR CHEST PAIN 08/24/24 19:30 Morphine Sulfate 2 mg Q30M PRN IV FOR CHEST PAIN 08/24/24 19:30 Albuterol (Ventolin Medneb) 2.5 mg Q4HR NEB 08/25/24 02:00 08/25/24 06:59 Ipratropium [place] (Atrovent Medneb) 0.5 mg Q4HR NEB 08/25/24 02:00 08/25/24 06:59 Ipratropium [place] (Atrovent Medneb) 0.5 mg Q2HPRN PRN NEB SHORTNESS OF BREATH 08/24/24 23:15 08/24/24 23:19 Albuterol (Ventolin Medneb) 2.5 mg Q2HPRN PRN NEB SHORTNESS OF BREATH 08/24/24 23:15 08/24/24 23:19 Sodium Bicarbonate 50 ml/ Dextrose 1,050 ml @ 100 mls/hr [id number] IV 08/25/24 10:15 UNV Potassium Chloride 100 ml @ 50 mls/hr Q2H IV 08/25/24 10:15 08/25/24 16:14 UNV Family History: Autoimmune disorder 19 CHILD Cancer G8 SISTER G8 SISTER Family history: Cardiovascular disease Family history: Diabetes mellitus Family history: Hypertension Stroke Review of Systems All 12 item review of systems reviewed with the patient nonsignificant except what is mentioned in the history of present illness H&P Exam Vital Signs/I&O Vital Sign Date Time Temp Pulse Resp B/P (MAP) Pulse Ox O2 Delivery O2 Flow Rate FiO2 08/25/24 09:00 98.1 65 16 157/50 (85) 100 98.1 08/25/24 08:00 Nasal Cannula* 2 28 Intake and Output 08/24/24 08/25/24 19:00 07:00 Intake Total 0 ml 1025 ml Output Total 0 ml 0 ml Balance 0 ml 1025 ml Intake Oral 0 ml 425 ml Blood Product 600 ml Other 0 ml Output Urine Total 0 ml 0 ml # Voids 3 Physical Exam Patient is lying comfortably in bed Lungs clear to auscultation bilaterally Cardiac exam regular rate and rhythm GI soft nontender was normal Extremities no clubbing cyanosis or edema Neuro nonfocal Labs/Diagnostic Data Labs/Diagnostic Data Laboratory Tests Test 08/25/24 06:49 08/24/24 23:26 08/24/24 15:30 08/24/24 14:30 Range/Units White Blood Count 8.1 7.8 4.4-10.8 10^3/uL Red Blood Count 2.58 L 2.24 L 4.0-5.20 10^6/uL Hemoglobin 8.0 #L 6.7 *L 12.2-16.2 g/dL Hematocrit 24.8 #L 21.1 L 36.0-46.0 % Mean Corpuscular Volume 95.9 94.2 80.0-100.0 fL Mean Corpuscular Hemoglobin 31.1 30.1 28.0-32.0 pg Mean Corpuscular Hemoglobin Concent 32.4 32.0 32.0-36.0 g/dL Red Cell Distribution Width 18.5 H 19.5 H 11.8-14.3 % Platelet Count 250 240 140-450 10^3/uL Mean Platelet Volume 7.3 7.6 6.9-10.8 fL Neutrophils (%) (Auto) 81.7 H 71.2 37.0-80.0 % Lymphocytes (%) (Auto) 7.6 L 14.0 10.0-50.0 % Monocytes (%) (Auto) 8.3 12.2 H 0.0-12.0 % Eosinophils (%) (Auto) 1.6 1.7 0.0-7.0 % Basophils (%) (Auto) 0.8 0.9 0.0-2.0 % Neutrophils # (Auto) 6.6 5.6 1.6-8.6 10 ^3/uL Lymphocytes # (Auto) 0.6 1.1 0.4-5.4 10 ^3/uL Monocytes # (Auto) 0.7 1.0 0-1.3 10 ^3/uL Eosinophils # (Auto) 0.1 0.1 0-0.8 10 ^3/uL Basophils # (Auto) 0.1 0.1 0-0.2 10 ^3/uL Nucleated Red Blood Cells 0.1 0.1 % Sodium Level 151 H 151 H 136-145 mmol/L Potassium Level 3.1 L 3.8 3.5-5.1 mmol/L Chloride Level 121 H 121 H 98-107 mmol/L Carbon Dioxide Level 19 L 20 20-31 mmol/L Anion Gap 11 10 5-15 Blood Urea Nitrogen 45 #H 83 *H 9-23 mg/dL Creatinine 1.24 #H 1.96 H 0.550-1.02 mg/dL Glomerular Filtration Rate Calc 45 26 >90 mL/min BUN/Creatinine Ratio 36.3 H 42.3 H 10.0-20.0 Serum Glucose 78 70 L 74-106 mg/dL Calcium Level 9.6 10.0 8.7-10.4 mg/dL Magnesium Level 2.2 1.6-2.6 mg/dL Total Bilirubin 0.5 0.2-1.0 mg/dL Aspartate Amino Transferase (AST) 33 13-40 U/L Alanine Aminotransferase (ALT) 21 7-40 U/L Alkaline Phosphatase 69 46-116 U/L Total Protein 5.4 L 5.7-8.2 g/dL Albumin 3.2 3.2-4.8 g/dL POC Glucose 81 70-106 mg/dl Urine Color Colorless Yellow Urine Clarity Turbid H Clear Urine pH 6.0 5.0-9.0 Urine Specific [place] 1.017 1.001-1.035 Urine Protein Negative Negative Urine Ketones Negative Negative Urine Blood Negative Negative /uL Urine Nitrite 1+ H Negative Urine Bilirubin Negative Negative Urine Urobilinogen Normal Negative mg/dL Urine Leukocyte Esterase 3+ Negative /uL Urine RBC 5 0 - 4 /hpf Urine Microscopic WBC 379 H 0-5 /HPF Urine Squamous Epithelial Cells Few <5 /hpf Urine Bacteria Few H None Seen /hpf Urine Mucus Few None Seen Urine Glucose Normal Normal mg/dL B-Type Natriuretic Peptide 39.99 0-100 pg/mL Thyroid Stimulating Hormone (TSH) 0.79 0.55-4.78 uIU/mL Test 08/24/24 11:30 Range/Units POC Glucose 105 70-106 mg/dl Assessment Acute kidney injury superimposed Chronic Kidney Disease secondary hemodynamic mediated Significant anemia rule out GI bleeding Hypernatremia due to dehydration Hypokalemia Metabolic acidosis Hypertension Recommendations Closely monitor fluid and electrolytes Avoid nephrotoxic medications Strict I&Os Check urine electrolytes and urine protein excretion Check kidney ultrasound IVF D5W with 50 mEq sodium bicarb at 100 cc/hour KCL replacement Blood pressure control Packed red blood cell transfusion p.r.n. Check stool occult blood We will continue to follow Patient seen and examined by myself. I discussed my plan of care with the patient and primary nurse at the bedside I would like to thank Rudolph for the consult, will follow up Plan discussed with: Patient MELITA JAMIL MD Aug 25, 2024 10:16
--- NOTE | 2024-08-25 10:18 | DVHPN2 ---
Progress Note Date Seen: Aug 25, 2024 Medical Necessity Reason Pt with a Central, PICC or Fol: Yes The following are medically ne: Oswald Catheter Reason for oswald catheter: Strict I&O Subjective Patient reports: No new complaints Review of Systems: HEENT:Normal, CVS:Normal, RESPIRATORY:Normal, GI:Normal, :Normal, MSK:Normal, NEURO:Normal Objective vital signs Vital Sign Date Time Temp Pulse Resp B/P (MAP) Pulse Ox O2 Delivery O2 Flow Rate FiO2 08/25/24 09:00 98.1 65 16 157/50 (85) 100 98.1 08/25/24 08:00 Nasal Cannula* 2 28 Total Intake and Output 08/24/24 08/24/24 08/25/24 15:00 23:00 07:00 Intake Total 600 ml 425 ml Output Total 0 ml Balance 600 ml 425 ml medications Current Medications Medications Dose Ordered Sig/Leonor Route Start Time Stop Time Status Last Admin Dose Admin Famotidine 20 mg Q2D IV 08/25/24 10:00 08/25/24 09:05 20 MG Levothyroxine Sodium 75 mcg QAM@0600 PO 08/25/24 06:00 08/25/24 06:00 75 MCG Aspirin 81 mg DAILY PO 08/25/24 10:00 08/25/24 09:05 81 MG Diagnostic Test (Pha) 1 strip ACHS 08/24/24 22:00 08/24/24 22:00 1 STRIP Insulin Human Regular ACHS SC 08/24/24 22:00 Dextrose 50 ml UD PRN IV 08/24/24 17:45 Sodium Chloride 10 ml Q8HR IV 08/24/24 22:00 08/25/24 06:00 10 ML Acetaminophen/ Hydrocodone Bitart 1 tab Q4HP PRN PO 08/24/24 17:45 08/25/24 09:05 1 TAB Ondansetron HCl 4 mg Q4HP PRN IV 08/24/24 17:45 Docusate Sodium 100 mg BIDPRN PRN PO 08/24/24 17:45 Acetaminophen 650 mg Q6HP PRN PO 08/24/24 17:45 Ceftriaxone Sodium 50 ml @ 100 mls/hr DAILY@09 IV 08/25/24 09:00 08/25/24 09:05 100 MLS/HR Diphenhydramine HCl 25 mg Q4HP PRN IV 08/24/24 18:45 Nitroglycerin 0.4 mg Q5MINP PRN SL 08/24/24 19:30 Morphine Sulfate 2 mg Q30M PRN IV 08/24/24 19:30 Albuterol 2.5 mg Q4HR NEB 08/25/24 02:00 08/25/24 06:59 2.5 MG Ipratropium [place] 0.5 mg Q4HR NEB 08/25/24 02:00 08/25/24 06:59 0.5 MG Ipratropium [place] 0.5 mg Q2HPRN PRN NEB 08/24/24 23:15 08/24/24 23:19 0.5 MG Albuterol 2.5 mg Q2HPRN PRN NEB 08/24/24 23:15 08/24/24 23:19 2.5 MG Sodium Bicarbonate 50 ml/ Dextrose 1,050 ml @ 100 mls/hr [id number] IV 08/25/24 10:15 UNV Potassium Chloride 100 ml @ 50 mls/hr Q2H IV 08/25/24 10:15 08/25/24 16:14 UNV Examination: GENERAL:Normal, HEENT:Normal, NECK:Normal, LUNGS:Normal, CVS:Normal, ABDOMEN:Normal, MSK:Normal, SKIN:Normal, NEURO:Normal, :Normal laboratory and microbiology Laboratory Tests 08/25/24 06:49 Test 08/25/24 06:49 Range/Units Serum Glucose 78 74-106 mg/dL Problem List/Assessment/Plan Problem List/Assessment/Plan 1. anemia s/p transfusion; ppi 2. h/o Sick sinus syndrome, status post pacemaker placement. 3. Hypothyroidism. 4. History of deep venous thrombosis. 5. History of ventral hernia. 6. Chronic obstructive pulmonary disease with chronic respiratory failure. 7. Obesity. 8. Hypertension 9. uti: iv rocephin, cultures 10. hypernatremia: free water 11. acute renal failure ?vasomotor nephropathy advance care planning-full code- time spent 19 mins Plan discussed with: Patient Sepsis reassessment post fluid Capillary Refill: < 3 seconds Date of Service: Aug 25, 2024 Billing Provider: JOEY CASANOVA MD Common Visit Codes: [id number] INP/OBS CARE(HIGH) Secondary Visit Codes: [id number] CARE PLAN 30 MINUTES CC Plasma Assessment Blood Product Administration S: [id number] JOEY CASANOVA MD Aug 25, 2024 10:18
[2024-08-25 10:38] LABS: Magnesium 2.3 mg/dL (1.6-2.6)
[2024-08-25 11:05] LABS: Urine Bacteria None Seen /hpf (None Seen)
[2024-08-25 11:26] LABS: Protein, Urine 26.7 mg/dL (1-14)
[2024-08-25 11:29] LABS: Creatinine, Urine 46.62 mg/dL (30.0-125.0); Urine Protein/Creatinine Ratio 0.57
[2024-08-25 11:29] LABS: Creatinine, Urine 46.58 mg/dL (30.0-125.0)
[2024-08-25 11:30] LABS: Urine Blood TRACE /uL (Negative); Urine Clarity Turbid (Clear); Urine Color Colorless (Yellow); Urine Protein, UAD Negative (Negative); Urine Specific Gravity 1.015 (1.001-1.035); Urine Squamous Epithelial Cell FEW /hpf (<5); Urine Urobilinogen Normal (Negative); Urine WBC 554 /HPF (0-5)
--- NOTE | 2024-08-25 11:34 | DVH ---
EXAM: XY CHEST PORTABLE Indication: chf Technique: Single frontal view of the chest was obtained Comparison: XY CHEST PORTABLE on DOS: 07/13/24, XY CHEST PORTABLE on DOS: 11/13/22, XY CHEST PORTABLE o n DOS: 10/16/22, CHEST PORTABLE on DOS: 11/03/21, CXRP on DOS: 11/03/21 FINDINGS: Lines and Tubes: Cardiac pacemaker projects over the left chest wall. Lungs: Right upper lung volume loss and fibrosis. Basilar right basilar atelectasis. Pleura: No effusion. No pneumothorax. Cardiomediastinal contours: Unremarkable Bones: No acute osseous abnormality. IMPRESSION: No significant change compared to prior exam.
--- NOTE | 2024-08-25 12:45 | DVH ---
INDICATION: david TECHNIQUE: Multiple real-time sonographic images of the kidneys and bladder were obtained. COMPARISON: None FINDINGS: The right kidney measures 8 cm in length, which is normal in size. There is normal echogeni [place] of the right kidney. No hydronephrosis. The left kidney measures 9 cm in length, which is normal in size. There is normal echogenicity of the left kidney. No hydronephrosis. 2 cm left renal cyst. No large intraluminal masses are seen in the bladder. IMPRESSION: 1. Normal sonographic appearance of the kidneys. No hydronephrosis.
--- NOTE | 2024-08-25 13:18 | DVHINCON2 ---
GI Consult Consult Note GI consult note Date of Consultation: 08/25/2024 Chief Complaint: Anemia, rule out GI bleed Referring Physician: Dr pollock H&P: 78-year-old female presented to ER with complains of generalized weakness, getting worse over the last three weeks. Patient had hemoglobin of 6.7 status post 1 unit PRBCs transfused and hemoglobin at 8.0 at this time No complains of abdominal pain. No nausea vomiting. Denies hematemesis. No melena or red blood in stool Multiple history of EGDs in the past 11/10/2009, 11/07/2017, 11/08/2021 Last colonoscopy 5-10 years ago, unable to locate records of this Past Medical History: Anemia, Angina, Arthritis, Asthma, CHF, COPD, DM, GERD, HTN, Thyroid Past Surgical History: Cholecystectomy, , Hernia Repair, Pacemaker, Tonsillectomy Social History: NO smoking, drinking ETOH and use of illegal drugs. Family History: Noncontributory Review of Systems: Constitutional: no fever, chill, weight loss HEENT: no eye pain, no hearing loss, no oral lesion, no scleral icterus Heart: no chest pain, no chest pressure Lung: no cough, no dyspnea with exertion Abdomen: see HPI Physical exam: General: NAD, AAOX3 Chest: lung [place] clear to auscultation Heart: RRR, no murmur Abdomen: non-distended, no tenderness to palpation, +BS Labs: Labs Test 08/25/24 11:28 08/25/24 10:03 08/25/24 06:49 08/25/24 00:00 Range/Units POC Glucose 81 70-106 mg/dl Urine Color Colorless Yellow Urine Clarity Turbid H Clear Urine pH 6.0 5.0-9.0 Urine Specific [place] 1.015 1.001-1.035 Urine Protein Negative Negative Urine Ketones Negative Negative Urine Blood Trace H Negative /uL Urine Nitrite Negative Negative Urine Bilirubin Negative Negative Urine Urobilinogen Normal Negative mg/dL Urine Leukocyte Esterase 3+ Negative /uL Urine RBC 10 0 - 4 /hpf Urine Microscopic WBC 554 H 0-5 /HPF Urine Squamous Epithelial Cells Few <5 /hpf Urine Bacteria None seen None Seen /hpf Urine Creatinine 46.58 30.0-125.0 mg/dL Urine Sodium 72 40-220 mmol/L Urine Glucose Normal Normal mg/dL White Blood Count 8.1 4.4-10.8 10^3/uL Red Blood Count 2.58 L 4.0-5.20 10^6/uL Hemoglobin 8.0 #L 12.2-16.2 g/dL Hematocrit 24.8 #L 36.0-46.0 % Mean Corpuscular Volume 95.9 80.0-100.0 fL Mean Corpuscular Hemoglobin 31.1 28.0-32.0 pg Mean Corpuscular Hemoglobin Concent 32.4 32.0-36.0 g/dL Red Cell Distribution Width 18.5 H 11.8-14.3 % Platelet Count 250 140-450 10^3/uL Mean Platelet Volume 7.3 6.9-10.8 fL Neutrophils (%) (Auto) 81.7 H 37.0-80.0 % Lymphocytes (%) (Auto) 7.6 L 10.0-50.0 % Monocytes (%) (Auto) 8.3 0.0-12.0 % Eosinophils (%) (Auto) 1.6 0.0-7.0 % Basophils (%) (Auto) 0.8 0.0-2.0 % Neutrophils # (Auto) 6.6 1.6-8.6 10 ^3/uL Lymphocytes # (Auto) 0.6 0.4-5.4 10 ^3/uL Monocytes # (Auto) 0.7 0-1.3 10 ^3/uL Eosinophils # (Auto) 0.1 0-0.8 10 ^3/uL Basophils # (Auto) 0.1 0-0.2 10 ^3/uL Nucleated Red Blood Cells 0.1 % Sodium Level 151 H 136-145 mmol/L Potassium Level 3.1 L 3.5-5.1 mmol/L Chloride Level 121 H 98-107 mmol/L Carbon Dioxide Level 19 L 20-31 mmol/L Anion Gap 11 5-15 Blood Urea Nitrogen 45 #H 9-23 mg/dL Creatinine 1.24 #H 0.550-1.02 mg/dL Glomerular Filtration Rate Calc 45 >90 mL/min BUN/Creatinine Ratio 36.3 H 10.0-20.0 Serum Glucose 78 74-106 mg/dL Calcium Level 9.6 8.7-10.4 mg/dL Phosphorus Level 3.0 2.4-5.1 mg/dL Magnesium Level 2.3 1.6-2.6 mg/dL Total Bilirubin 0.5 0.2-1.0 mg/dL Aspartate Amino Transferase (AST) 33 13-40 U/L Alanine Aminotransferase (ALT) 21 7-40 U/L Alkaline Phosphatase 69 46-116 U/L Total Protein 5.4 L 5.7-8.2 g/dL Albumin 3.2 3.2-4.8 g/dL Vitamin D 25-Hydroxy 40.6 30.0-100 ng/mL Parathyroid Hormone (Intact) 72.7 18.4-80.1 pg/mL Urine Protein/Creatinine Ratio 0.57 Urine Total Protein 26.7 H 1-14 mg/dL Test 08/24/24 15:30 08/24/24 14:30 Range/Units Urine Mucus Few None Seen B-Type Natriuretic Peptide 39.99 0-100 pg/mL Thyroid Stimulating Hormone (TSH) 0.79 0.55-4.78 uIU/mL Imaging: Chest x-ray IMPRESSION: No significant change compared to prior exam. Assessment: Severe anemia UTI Renal failure History of DVT Plan: Discussed with Dr. Castro Monitor labs transfuse if hemoglobin less than seven Stool for occult blood We will continue to monitor patient Recommend outpatient colonoscopy Discussed plan with patient and RN Thank you for this consult Date of Service: Aug 25, 2024 Billing Provider: NORMA STEELE Common Visit Codes: CONSULT ONLY Consultation Codes: [id number] CONSULT <60MIN NORMA STEELE Aug 25, 2024 13:18
[2024-08-25] MEDS: POTASSIUM CHL 20MEQ/100ML 100 ML IV SCH (14:09)
[2024-08-25] MEDS: SODIUM BICARB 50mEq/50ml Vial 50 ML in D5W 5% 1,000 ML IV SCH (14:09)
[2024-08-26] VITALS (22 sets, daily range): BP systolic 112–151; BP diastolic 41–71; PULSE 64–94; RESP 12–18; TEMP 97.6–98.3; O2SAT 94–100
[2024-08-26 06:58] LABS: Basophils # (auto) 0.1 10 ^3/uL (0-0.2); Basophils % (auto) 0.8 % (0.0-2.0); Eosinophils # (auto) 0.1 10 ^3/uL (0-0.8); Eosinophils % (auto) 2.1 % (0.0-7.0); Hematocrit 27.8 % (36.0-46.0); Hemoglobin 8.7 g/dL (12.2-16.2); Lymphocytes # (auto) 0.8 10 ^3/uL (0.4-5.4); Mean Corpuscular Hemoglobin 30.9 pg (28.0-32.0); Mean Corpuscular Hgb Conc. 31.2 g/dL (32.0-36.0); Mean Corpuscular Volume 98.9 fL (80.0-100.0); Monocytes # (auto) 0.7 10 ^3/uL (0-1.3); Monocytes % (auto) 10.3 % (0.0-12.0); Neutrophils % (auto) 74.8 % (37.0-80.0); Nucleated Red Blood Cells % 0.1 %; Platelet Count (auto) 270 10^3/uL (140-450); Red Blood Cells 2.81 10^6/uL (4.0-5.20); White Blood Cell 6.7 10^3/uL (4.4-10.8)
[2024-08-26 07:01] LABS: BUN/Creatinine Ratio 27.1 (10.0-20.0); Glucose 89 mg/dL (74-106)
[2024-08-26 07:06] LABS: Potassium 3.9 mmol/L (3.5-5.1)
[2024-08-26 07:08] LABS: Anion Gap 10 (5-15)
[2024-08-26 07:09] LABS: Blood Urea Nitrogen 23 mg/dL (9-23); Calcium 9.7 mg/dL (8.7-10.4); Carbon Dioxide 19 mmol/L (20-31); Chloride 117 mmol/L (98-107); Sodium 146 mmol/L (136-145)
[2024-08-26] MEDS: PANTOPRAZOLE 40 MG/10 ML VIAL INJ IV SCH (09:13)
[2024-08-26 09:18] LABS: INR 0.98 (0.9-1.15); Partial Thromboplastin Time < 20.0 SEC (24.5-34.5); Prothrombin Time 10.4 sec (9.3-11.8)
[2024-08-26] MEDS ORDERED: SODIUM CHLORIDE LOCK 10 ML ONE (09:33)
--- NOTE | 2024-08-26 10:41 | DVHPN2 ---
Progress Note Date Seen: Aug 26, 2024 Medical Necessity Reason Pt with a Central, PICC or Fol: Yes The following are medically ne: Oswald Catheter Reason for oswald catheter: Strict I&O Subjective Patient reports: No new complaints Review of Systems: HEENT:Normal, CVS:Normal, RESPIRATORY:Normal, GI:Normal, :Normal, MSK:Normal, NEURO:Normal Objective vital signs Vital Sign Date Time Temp Pulse Resp B/P (MAP) Pulse Ox O2 Delivery O2 Flow Rate FiO2 08/26/24 10:00 100 Nasal Cannula 2.0 08/26/24 10:00 28 08/26/24 09:00 98.0 65 16 150/60 (90) 98.0 Total Intake and Output 08/25/24 08/25/24 08/26/24 15:00 23:00 07:00 Intake Total 50 ml 1075 ml 175 ml Output Total 1200 ml 425 ml Balance 50 ml -125 ml -250 ml medications Current Medications Medications Dose Ordered Sig/Leonor Route Start Time Stop Time Status Last Admin Dose Admin Levothyroxine Sodium 75 mcg QAM@0600 PO 08/25/24 06:00 08/25/24 06:00 75 MCG Diagnostic Test (Pha) 1 strip ACHS 08/24/24 22:00 08/25/24 11:56 1 STRIP Insulin Human Regular ACHS SC 08/24/24 22:00 Dextrose 50 ml UD PRN IV 08/24/24 17:45 Sodium Chloride 10 ml Q8HR IV 08/24/24 22:00 08/26/24 05:28 10 ML Acetaminophen/ Hydrocodone Bitart 1 tab Q4HP PRN PO 08/24/24 17:45 08/26/24 00:39 1 TAB Ondansetron HCl 4 mg Q4HP PRN IV 08/24/24 17:45 Docusate Sodium 100 mg BIDPRN PRN PO 08/24/24 17:45 Acetaminophen 650 mg Q6HP PRN PO 08/24/24 17:45 Ceftriaxone Sodium 50 ml @ 100 mls/hr DAILY@09 IV 08/25/24 09:00 08/26/24 09:13 100 MLS/HR Diphenhydramine HCl 25 mg Q4HP PRN IV 08/24/24 18:45 Nitroglycerin 0.4 mg Q5MINP PRN SL 08/24/24 19:30 Morphine Sulfate 2 mg Q30M PRN IV 08/24/24 19:30 Albuterol 2.5 mg Q4HR NEB 08/25/24 02:00 08/26/24 10:39 2.5 MG Ipratropium [place] 0.5 mg Q4HR NEB 08/25/24 02:00 08/26/24 10:39 0.5 MG Ipratropium [place] 0.5 mg Q2HPRN PRN NEB 08/24/24 23:15 08/24/24 23:19 0.5 MG Albuterol 2.5 mg Q2HPRN PRN NEB 08/24/24 23:15 08/24/24 23:19 2.5 MG Sodium Bicarbonate 50 ml/ Dextrose 1,050 ml @ 100 mls/hr [id number] IV 08/25/24 10:15 08/25/24 22:08 100 MLS/HR Pantoprazole Sodium 40 mg DAILY IV 08/26/24 10:00 08/26/24 09:13 40 MG Examination: GENERAL:Normal, HEENT:Normal, NECK:Normal, LUNGS:Normal, CVS:Normal, ABDOMEN:Normal, MSK:Normal, SKIN:Normal, NEURO:Normal, :Normal laboratory and microbiology Laboratory Tests 08/26/24 06:22 Test 08/26/24 06:22 Range/Units Serum Glucose 89 74-106 mg/dL Problem List/Assessment/Plan Problem List/Assessment/Plan 1. anemia s/p transfusion; ppi, egd today 2. h/o Sick sinus syndrome, status post pacemaker placement. 3. Hypothyroidism. 4. History of deep venous thrombosis. 5. History of ventral hernia. 6. Chronic obstructive pulmonary disease with chronic respiratory failure. 7. Obesity. 8. Hypertension 9. uti: iv rocephin, cultures 10. hypernatremia: free water 11. acute renal failure ?vasomotor nephropathy advance care planning-full code- time spent 19 mins Plan discussed with: Patient Sepsis reassessment post fluid Capillary Refill: < 3 seconds Date of Service: Aug 26, 2024 Billing Provider: JOEY CASANOVA MD Common Visit Codes: [id number] INP/OBS CARE(HIGH) CC Plasma Assessment Blood Product Administration S: [id number] JOEY CASANOVA MD Aug 26, 2024 10:41
[2024-08-26] MEDS: SODIUM BICARB 50mEq/50ml Vial 50 ML in D5W 5% 1,000 ML IV SCH (10:45)
--- NOTE | 2024-08-26 11:16 | DVHPN2 ---
Progress Note Date Seen: Aug 26, 2024 Medical Necessity Reason Pt with a Central, PICC or Fol: Yes The following are medically ne: Oswald Catheter Reason for oswald catheter: Strict I&O Subjective Patient reports: No new complaints Other Systems: Patient seen and examined by myself today in follow-up Objective vital signs Vital Sign Date Time Temp Pulse Resp B/P (MAP) Pulse Ox O2 Delivery O2 Flow Rate FiO2 08/26/24 10:39 98 Nasal Cannula 1.0 08/26/24 10:39 24 08/26/24 10:39 66 16 08/26/24 09:00 98.0 150/60 (90) 98.0 Total Intake and Output 08/25/24 08/25/24 08/26/24 15:00 23:00 07:00 Intake Total 50 ml 1075 ml 175 ml Output Total 1200 ml 425 ml Balance 50 ml -125 ml -250 ml medications Current Medications Medications Dose Ordered Sig/Leonor Route Start Time Stop Time Status Last Admin Dose Admin Levothyroxine Sodium 75 mcg QAM@0600 PO 08/25/24 06:00 08/25/24 06:00 75 MCG Diagnostic Test (Pha) 1 strip ACHS 08/24/24 22:00 08/25/24 11:56 1 STRIP Insulin Human Regular ACHS SC 08/24/24 22:00 Dextrose 50 ml UD PRN IV 08/24/24 17:45 Sodium Chloride 10 ml Q8HR IV 08/24/24 22:00 08/26/24 05:28 10 ML Acetaminophen/ Hydrocodone Bitart 1 tab Q4HP PRN PO 08/24/24 17:45 08/26/24 00:39 1 TAB Ondansetron HCl 4 mg Q4HP PRN IV 08/24/24 17:45 Docusate Sodium 100 mg BIDPRN PRN PO 08/24/24 17:45 Acetaminophen 650 mg Q6HP PRN PO 08/24/24 17:45 Ceftriaxone Sodium 50 ml @ 100 mls/hr DAILY@09 IV 08/25/24 09:00 08/26/24 09:13 100 MLS/HR Diphenhydramine HCl 25 mg Q4HP PRN IV 08/24/24 18:45 Nitroglycerin 0.4 mg Q5MINP PRN SL 08/24/24 19:30 Morphine Sulfate 2 mg Q30M PRN IV 08/24/24 19:30 Albuterol 2.5 mg Q4HR NEB 08/25/24 02:00 08/26/24 10:39 2.5 MG Ipratropium [place] 0.5 mg Q4HR NEB 08/25/24 02:00 08/26/24 10:39 0.5 MG Ipratropium [place] 0.5 mg Q2HPRN PRN NEB 08/24/24 23:15 08/24/24 23:19 0.5 MG Albuterol 2.5 mg Q2HPRN PRN NEB 08/24/24 23:15 08/24/24 23:19 2.5 MG Pantoprazole Sodium 40 mg DAILY IV 08/26/24 10:00 08/26/24 09:13 40 MG Sodium Bicarbonate 50 ml/ Dextrose 1,050 ml @ 75 mls/hr Q14H IV 08/26/24 10:45 UNV Examination: LUNGS:Normal, CVS:Normal, MSK:Normal laboratory and microbiology Laboratory Tests 08/26/24 06:22 Test 08/26/24 06:22 Range/Units Serum Glucose 89 74-106 mg/dL Problem List/Assessment/Plan Problem List/Assessment/Plan Acute kidney injury superimposed Chronic Kidney Disease secondary hemodynamic mediated Significant anemia rule out GI bleeding Hypernatremia due to dehydration Hypokalemia Metabolic acidosis Hypertension Recommendations Kidney function is improving Increased urine output Hypernatremia slowly and appropriately improving Strict I&Os kidney ultrasound reported within normal limit I agree with hypotonic IV fluid hydration KCL replacement Blood pressure control Packed red blood cell transfusion p.r.n. We will continue to follow Plan discussed with: Patient Sepsis reassessment post fluid Capillary Refill: < 3 seconds CC Plasma Assessment Blood Product Administration S: [id number] MELITA JAMIL MD Aug 26, 2024 11:16
--- NOTE | 2024-08-26 13:00 | ECG ---
[facility] Test Date: 2024-08-24 Test Time: 11:28:52 Pat Name: RONALD LUCERO Department: ER Room: 0223T A Gender: F Cardiac Cath Technologist: ANNA : 1945 Requested By: LIO PATRICK Order Number: [id number] Reading MD: Eulalio Ramos Measurements Intervals [place] Rate: 65 P: 0 UT: 215 QRS: 32 QRSD: 101 T: 66 QT: 447 QTc: 465 Interpretive Statements Atrial-paced complexes Borderline prolonged UT interval Electronically Signed On 08-26-2024 14:51:47 PDT by Eulalio Ramos Please click the below link to view image of tracing.
[2024-08-26] MEDS: LIDOCAINE VISCOUS 2% 15ML UD ONE (15:24)
[2024-08-26] MEDS: diphenhdrAMINE HCL 50 MG/1 ML VL ONE (15:28)
[2024-08-26] MEDS: MIDAZOLAM HCL 5 MG/ML-1ML VIAL ONE (15:28)
[2024-08-26] MEDS: fentaNYL CITRATE 100 MCG/2 ML VL ONE (15:28)
--- NOTE | 2024-08-26 15:53 | DVHOP2 ---
Operative Report DATE OF OPERATION: 08/26/24 PROCEDURE: Upper Endoscopy with biopsy. PREOPERATIVE INDICATION: The patient is a 78 -year-old female undergoing endoscopy for anemia POSTOPERATIVE DIAGNOSES: 1. 2-3 cm sliding-type hiatal hernia with grade A erosive esophagitis 2. Minimal gastritis otherwise normal examination of the 2nd and 3rd part of the duodenum PROCEDURE PERFORMED BY: Brent Castro GI NURSE: Sam SCOPE: Olympus videoendoscope. ASA CLASS: 3 PREOPERATIVE MEDICATIONS: Versed 3 mg, Fentanyl 75 mcg, Benadryl 50 mg I administered moderate sedation throughout this _8_ minutes procedure. An independent trained observer pushed medications at my direction, and monitored the patient's level of consciousness and physiological status throughout. PROCEDURE IN DETAIL: After obtaining an informed consent, the patient was placed on left lateral decubitus position. The patient was then sedated with the above medications. A bite block was placed between her teeth. The endoscope was then passed through the oropharynx, into the esophagus, and through the stomach and pylorus up to the second and third part of the duodenum. The endoscope was then withdrawn. The 2nd and 3rd part of the duodenum and the duodenal bulb were normal. Duodenal biopsies were obtained The pre-pyloric area antrum and body showed minimal gastritis. Gastric biopsies were obtained. On retroflexion the fundus cardia and angularis were normal. The endoscope was then withdrawn into distal esophagus Patient had a 2-3 cm sliding-type hiatal hernia with grade a erosive esophagitis. GE junction biopsies were obtained The remaining distal and proximal esophagus and oropharynx were unremarkable The patient tolerated the procedure well without difficulty. COMPLICATIONS : None SPECIMENS: Duodenal biopsies Gastric biopsies GE junction biopsies DISPOSITION: Transfer back to the floor Stable PLAN: 1. Await for biopsy result 2. Will place pt on Protonix 40 mg IV daily 3. Resume GI soft diet advance as tolerated 4. Patient does not appear to be medically stable at this time for colonoscopy as she was having a chronic cough and bronchitis and also has generalized weak ness with making it difficult for her to move in the bed 5. Patient was advised follow up in my office as an outpatient to arrange elective colonoscopy once medically stabilized; I will re-evaluate patient tomorrow BRENT CASTRO MD Aug 26, 2024 15:53
[2024-08-27] VITALS (20 sets, daily range): BP systolic 120–135; BP diastolic 48–79; PULSE 64–85; RESP 16–18; TEMP 97.7–98.6; O2SAT 97–100
[2024-08-27 06:43] LABS: Hemoglobin 8.2 g/dL (12.2-16.2); Monocytes # (auto) 0.7 10 ^3/uL (0-1.3); Neutrophils # (auto) 4.3 10 ^3/uL (1.6-8.6)
[2024-08-27 06:45] LABS: Basophils # (auto) 0 10 ^3/uL (0-0.2); Basophils % (auto) 0.7 % (0.0-2.0); Eosinophils # (auto) 0.2 10 ^3/uL (0-0.8); Eosinophils % (auto) 2.5 % (0.0-7.0); Hematocrit 25.6 % (36.0-46.0); Lymphocytes # (auto) 0.9 10 ^3/uL (0.4-5.4); Lymphocytes % (auto) 14.9 % (10.0-50.0); Mean Corpuscular Hemoglobin 30.5 pg (28.0-32.0); Mean Corpuscular Hgb Conc. 31.9 g/dL (32.0-36.0); Mean Corpuscular Volume 95.6 fL (80.0-100.0); Monocytes % (auto) 11.1 % (0.0-12.0); Neutrophils % (auto) 70.8 % (37.0-80.0); Platelet Count (auto) 275 10^3/uL (140-450); Red Blood Cells 2.68 10^6/uL (4.0-5.20); Red Cell Distribution Width 18.1 % (11.8-14.3); White Blood Cell 6.1 10^3/uL (4.4-10.8)
[2024-08-27 06:47] LABS: Anion Gap 8 (5-15); Carbon Dioxide 23 mmol/L (20-31); Potassium 3.9 mmol/L (3.5-5.1)
[2024-08-27 06:48] LABS: Calcium 10.3 mg/dL (8.7-10.4)
[2024-08-27 06:53] LABS: BUN/Creatinine Ratio 22.5 (10.0-20.0); Blood Urea Nitrogen 20 mg/dL (9-23); Chloride 118 mmol/L (98-107); Sodium 149 mmol/L (136-145)
[2024-08-27 06:56] LABS: Glucose 73 mg/dL (74-106)
--- NOTE | 2024-08-27 09:33 | DVH ---
EXAM: XY CHEST PORTABLE Indication: chf Technique: Single frontal view of the chest was obtained Comparison: XY CHEST PORTABLE on DOS: 08/25/24, XY CHEST PORTABLE on DOS: 07/13/24, XY CHEST PORTABLE on DOS: 11/13/22, XY CHEST PORTABLE on DOS: 10/16/22, CHEST PORTABLE on DOS: 11/03/21 FINDINGS: Lines and Tubes: Cardiac pacemaker projects over the left chest wall. Lungs: Right upper lung fibrosis/volume loss. Bibasilar opacities. No pneumothorax. Cardiomediastinal contours: Unremarkable Atherosclerotic vascular calcifications of the thoracic aor ta are noted. Bones: No acute osseous abnormality. IMPRESSION: No significant change compared to prior exam.
--- NOTE | 2024-08-27 10:12 | DVHPN2 ---
Progress Note Date Seen: Aug 27, 2024 Medical Necessity Reason Pt with a Central, PICC or Fol: Yes The following are medically ne: Oswald Catheter Reason for oswald catheter: Strict I&O Subjective Patient reports: No new complaints Other Systems: Patient seen and examined by myself today in follow-up Objective vital signs Vital Sign Date Time Temp Pulse Resp B/P (MAP) Pulse Ox O2 Delivery O2 Flow Rate FiO2 08/27/24 08:55 98.6 66 17 133/50 (77) 98 98.6 08/27/24 07:31 Nasal Cannula* 1 24 Total Intake and Output 08/26/24 08/26/24 08/27/24 15:00 23:00 07:00 Intake Total 150 ml 0 ml 150 ml Output Total 550 ml 250 ml Balance 150 ml -550 ml -100 ml medications Current Medications Medications Dose Ordered Sig/Leonor Route Start Time Stop Time Status Last Admin Dose Admin Levothyroxine Sodium 75 mcg QAM@0600 PO 08/25/24 06:00 08/27/24 05:47 75 MCG Diagnostic Test (Pha) 1 strip ACHS 08/24/24 22:00 08/26/24 11:43 1 STRIP Insulin Human Regular ACHS SC 08/24/24 22:00 Dextrose 50 ml UD PRN IV 08/24/24 17:45 Sodium Chloride 10 ml Q8HR IV 08/24/24 22:00 08/27/24 05:47 10 ML Acetaminophen/ Hydrocodone Bitart 1 tab Q4HP PRN PO 08/24/24 17:45 08/27/24 08:54 1 TAB Ondansetron HCl 4 mg Q4HP PRN IV 08/24/24 17:45 Docusate Sodium 100 mg BIDPRN PRN PO 08/24/24 17:45 Acetaminophen 650 mg Q6HP PRN PO 08/24/24 17:45 Ceftriaxone Sodium 50 ml @ 100 mls/hr DAILY@09 IV 08/25/24 09:00 08/27/24 08:54 100 MLS/HR Diphenhydramine HCl 25 mg Q4HP PRN IV 08/24/24 18:45 Nitroglycerin 0.4 mg Q5MINP PRN SL 08/24/24 19:30 Morphine Sulfate 2 mg Q30M PRN IV 08/24/24 19:30 Albuterol 2.5 mg Q4HR NEB 08/25/24 02:00 08/27/24 07:26 2.5 MG Ipratropium [place] 0.5 mg Q4HR NEB 08/25/24 02:00 08/27/24 07:27 0.5 MG Ipratropium [place] 0.5 mg Q2HPRN PRN NEB 08/24/24 23:15 08/24/24 23:19 0.5 MG Albuterol 2.5 mg Q2HPRN PRN NEB 08/24/24 23:15 08/24/24 23:19 2.5 MG Pantoprazole Sodium 40 mg DAILY IV 08/26/24 10:00 08/27/24 08:54 40 MG Sodium Bicarbonate 50 ml/ Dextrose 1,050 ml @ 75 mls/hr Q14H IV 08/26/24 10:45 08/27/24 02:00 75 MLS/HR Examination: LUNGS:Normal, CVS:Normal, MSK:Normal laboratory and microbiology Laboratory Tests 08/27/24 06:10 Test 08/27/24 06:10 Range/Units Serum Glucose 73 L 74-106 mg/dL Microbiology Date/Time Source Procedure Growth Status 08/24/24 15:30 Voided Urine Urine Culture - Final Klebsiella pneumoniae Complete Problem List/Assessment/Plan Problem List/Assessment/Plan Acute kidney injury superimposed Chronic Kidney Disease secondary hemodynamic mediated Significant anemia rule out GI bleeding Hypernatremia due to dehydration Hypokalemia Metabolic acidosis Hypertension Recommendations Kidney function resolved back to normal Increased urine output Strict I&Os kidney ultrasound reported within normal limit I agree with hypotonic IV fluid hydration KCL replacement Blood pressure control Packed red blood cell transfusion p.r.n. I will sign off this case please reconsult as needed Thank you for the consult Plan discussed with: Patient Sepsis reassessment post fluid Capillary Refill: < 3 seconds CC Plasma Assessment Blood Product Administration S: [id number] MELITA JAMIL MD Aug 27, 2024 10:12
--- NOTE | 2024-08-27 13:58 | DVHPN2 ---
Progress Note Date Seen: Aug 27, 2024 Medical Necessity Reason Pt with a Central, PICC or Fol: Yes The following are medically ne: Oswald Catheter Reason for oswald catheter: Strict I&O Subjective Patient reports: No new complaints Review of Systems: HEENT:Normal, CVS:Normal, RESPIRATORY:Normal, GI:Normal, :Normal, MSK:Normal, NEURO:Normal Objective vital signs Vital Sign Date Time Temp Pulse Resp B/P (MAP) Pulse Ox O2 Delivery O2 Flow Rate FiO2 08/27/24 12:49 98.1 65 18 133/79 (97) 97 98.1 08/27/24 10:00 Nasal Cannula* 2 28 Total Intake and Output 08/26/24 08/26/24 08/27/24 15:00 23:00 07:00 Intake Total 150 ml 0 ml 150 ml Output Total 550 ml 250 ml Balance 150 ml -550 ml -100 ml medications Current Medications Medications Dose Ordered Sig/Leonor Route Start Time Stop Time Status Last Admin Dose Admin Levothyroxine Sodium 75 mcg QAM@0600 PO 08/25/24 06:00 08/27/24 05:47 75 MCG Diagnostic Test (Pha) 1 strip ACHS 08/24/24 22:00 08/27/24 11:30 1 STRIP Insulin Human Regular ACHS SC 08/24/24 22:00 Dextrose 50 ml UD PRN IV 08/24/24 17:45 Sodium Chloride 10 ml Q8HR IV 08/24/24 22:00 08/27/24 13:31 10 ML Acetaminophen/ Hydrocodone Bitart 1 tab Q4HP PRN PO 08/24/24 17:45 08/27/24 08:54 1 TAB Ondansetron HCl 4 mg Q4HP PRN IV 08/24/24 17:45 Docusate Sodium 100 mg BIDPRN PRN PO 08/24/24 17:45 Acetaminophen 650 mg Q6HP PRN PO 08/24/24 17:45 Ceftriaxone Sodium 50 ml @ 100 mls/hr DAILY@09 IV 08/25/24 09:00 08/27/24 08:54 100 MLS/HR Diphenhydramine HCl 25 mg Q4HP PRN IV 08/24/24 18:45 Nitroglycerin 0.4 mg Q5MINP PRN SL 08/24/24 19:30 Morphine Sulfate 2 mg Q30M PRN IV 08/24/24 19:30 Albuterol 2.5 mg Q4HR NEB 08/25/24 02:00 08/27/24 11:12 2.5 MG Ipratropium [place] 0.5 mg Q4HR NEB 08/25/24 02:00 08/27/24 11:12 0.5 MG Ipratropium [place] 0.5 mg Q2HPRN PRN NEB 08/24/24 23:15 08/24/24 23:19 0.5 MG Albuterol 2.5 mg Q2HPRN PRN NEB 08/24/24 23:15 08/24/24 23:19 2.5 MG Pantoprazole Sodium 40 mg DAILY IV 08/26/24 10:00 08/27/24 08:54 40 MG Sodium Bicarbonate 50 ml/ Dextrose 1,050 ml @ 75 mls/hr Q14H IV 08/26/24 10:45 08/27/24 02:00 75 MLS/HR Examination: GENERAL:Normal, HEENT:Normal, NECK:Normal, LUNGS:Normal, CVS:Normal, ABDOMEN:Normal, MSK:Normal, SKIN:Normal, NEURO:Normal, :Normal laboratory and microbiology Laboratory Tests 08/27/24 06:10 Test 08/27/24 06:10 Range/Units Serum Glucose 73 L 74-106 mg/dL Microbiology Date/Time Source Procedure Growth Status 08/24/24 15:30 Voided Urine Urine Culture - Final Klebsiella pneumoniae Complete Problem List/Assessment/Plan Problem List/Assessment/Plan 1. anemia s/p transfusion; ppi 2. h/o Sick sinus syndrome, status post pacemaker placement. 3. Hypothyroidism. 4. History of deep venous thrombosis. 5. History of ventral hernia. 6. Chronic obstructive pulmonary disease with chronic respiratory failure. 7. Obesity. 8. Hypertension 9. uti with kleb: iv rocephin 10. hypernatremia: free water 11. acute renal failure ?vasomotor nephropathy advance care planning-full code- time spent 19 mins Plan discussed with: Patient My Orders My Orders Orders - JOEY CASANOVA MD Procedure Category Date Status Time Diphenhdramine PHA 08/27/24 Transmitted Injection (Benadryl 14:00 Pantoprazole Tablet PHA 08/28/24 Transmitted (Protonix Tablet) 06:00 Basic Metabolic Panel LAB 08/28/24 Verified 06:00 Sepsis reassessment post fluid Capillary Refill: < 3 seconds Date of Service: Aug 27, 2024 Billing Provider: JOEY CASANOVA MD Common Visit Codes: [id number] INP/OBS CARE(HIGH) CC Plasma Assessment Blood Product Administration S: [id number] JOEY CASANOVA MD Aug 27, 2024 13:58
[2024-08-27] MEDS ORDERED: diphenhdrAMINE HCL 50 MG/1 ML VL IV PRN (14:00)
--- NOTE | 2024-08-27 22:47 | DVHPN2 ---
Progress Note - Dictate Date Seen: Aug 27, 2024 Medical Necessity Reason Pt with a Central, PICC or Fol: Yes The following are medically ne: Oswald Catheter Reason for oswald catheter: Strict I&O Subjective Patient continues to complain of generalized body aches and weakness She was able to get up with the physical therapy and walked two steps but continues to moan and complain of difficulty moving No diarrhea or bleeding is reported Patient had moderate amount of coughing related to COPD exacerbation vital signs Vital Sign Date Time Temp Pulse Resp B/P (MAP) Pulse Ox O2 Delivery O2 Flow Rate FiO2 08/27/24 22:11 65 16 100 08/27/24 22:05 Nasal Cannula 1.0 08/27/24 22:05 24 08/27/24 21:00 98.0 135/69 (91) 98.0 Total Intake and Output 08/26/24 08/26/24 08/27/24 15:00 23:00 07:00 Intake Total 150 ml 0 ml 150 ml Output Total 550 ml 250 ml Balance 150 ml -550 ml -100 ml medications Current Medications Medications Dose Ordered Sig/Leonor Route Start Time Stop Time Status Last Admin Dose Admin Levothyroxine Sodium 75 mcg QAM@0600 PO 08/25/24 06:00 08/27/24 05:47 75 MCG Diagnostic Test (Pha) 1 strip ACHS 08/24/24 22:00 08/27/24 21:04 1 STRIP Insulin Human Regular ACHS SC 08/24/24 22:00 Dextrose 50 ml UD PRN IV 08/24/24 17:45 Sodium Chloride 10 ml Q8HR IV 08/24/24 22:00 08/27/24 21:04 10 ML Acetaminophen/ Hydrocodone Bitart 1 tab Q4HP PRN PO 08/24/24 17:45 08/27/24 21:18 1 TAB Ondansetron HCl 4 mg Q4HP PRN IV 08/24/24 17:45 Docusate Sodium 100 mg BIDPRN PRN PO 08/24/24 17:45 Acetaminophen 650 mg Q6HP PRN PO 08/24/24 17:45 Ceftriaxone Sodium 50 ml @ 100 mls/hr DAILY@09 IV 08/25/24 09:00 08/27/24 08:54 100 MLS/HR Nitroglycerin 0.4 mg Q5MINP PRN SL 08/24/24 19:30 Morphine Sulfate 2 mg Q30M PRN IV 08/24/24 19:30 Albuterol 2.5 mg Q4HR NEB 08/25/24 02:00 08/27/24 22:05 2.5 MG Ipratropium [place] 0.5 mg Q4HR NEB 08/25/24 02:00 08/27/24 22:05 0.5 MG Albuterol 2.5 mg Q2HPRN PRN NEB 08/24/24 23:15 08/24/24 23:19 2.5 MG Sodium Bicarbonate 50 ml/ Dextrose 1,050 ml @ 75 mls/hr Q14H IV 08/26/24 10:45 08/27/24 02:00 75 MLS/HR Diphenhydramine HCl 25 mg Q6HP PRN IV 08/27/24 14:00 Pantoprazole Sodium 40 mg DAILY@0600 PO 08/28/24 06:00 objective General: NAD, AAOX3 Chest: lung alvarenga clear to auscultation Heart: RRR, no murmur Abdomen: non-distended, no tenderness to palpation, +BS laboratory and microbiology Laboratory Tests 08/27/24 06:10 Test 08/27/24 06:10 Range/Units Serum Glucose 73 L 74-106 mg/dL Problems(with codes): (1) Degenerative joint disease of both hips (2) Severe anemia (3) Hypoxemia (4) CHF exacerbation (5) Ventral hernia (6) Hiatal hernia with GERD and esophagitis Prognosis Plan Patient still appears to be too debilitated and weak to undergo bowel prep and a colonoscopy Continue medical management and supportive care Continue physical therapy I will continue to follow the patient If discharge patient can follow up in my office as an outpatient in 2-4 weeks to discuss elective colonoscopy Dietary Evaluation Review Comments: 1. CCHO-60, Cardiac mechanical soft diet 2. explore iron load, consider iron and vitamin supplementation if needed. 3. Monitor PO intake to meet 75% of her needs Expected Outcomes/Goals: Gradual wt loss, controlled DM, Plan discussed with: Other (Nurse Melanie) Capillary Refill: < 3 seconds CC Plasma Assessment Blood Product Administration S: [id number] BRENT DEJESUS MD Aug 27, 2024 22:47
[2024-08-28] VITALS (21 sets, daily range): BP systolic 123–147; BP diastolic 49–73; PULSE 63–98; RESP 16–20; TEMP 97.5–98.5; O2SAT 94–100
[2024-08-28] MEDS: PANTOPRAZOLE 40 MG TAB PO SCH (05:15)
[2024-08-28 06:10] LABS: Anion Gap 9 (5-15); Carbon Dioxide 22 mmol/L (20-31); Sodium 143 mmol/L (136-145)
[2024-08-28 06:12] LABS: Calcium 9.9 mg/dL (8.7-10.4)
[2024-08-28 06:15] LABS: Chloride 112 mmol/L (98-107); Potassium 3.5 mmol/L (3.5-5.1)
[2024-08-28 06:16] LABS: BUN/Creatinine Ratio 16.9 (10.0-20.0); Blood Urea Nitrogen 12 mg/dL (9-23)
[2024-08-28 06:20] LABS: Glucose 70 mg/dL (74-106)
--- NOTE | 2024-08-28 11:57 | DVHPN2 ---
Progress Note - Dictate Date Seen: Aug 28, 2024 Medical Necessity Reason Pt with a Central, PICC or Fol: Yes The following are medically ne: Oswald Catheter Reason for oswald catheter: Strict I&O Subjective Patient continues to complain of generalized body aches and weakness She was able to get up with the physical therapy and walked two steps but continues to moan and complain of difficulty moving No diarrhea or bleeding is reported Patient had moderate amount of coughing related to COPD exacerbation but this is improving vital signs Vital Sign Date Time Temp Pulse Resp B/P (MAP) Pulse Ox O2 Delivery O2 Flow Rate FiO2 08/28/24 10:03 65 18 100 08/28/24 09:56 Nasal Cannula* 1 24 08/28/24 09:13 147/52 08/28/24 08:46 98.4 98.4 Total Intake and Output 08/27/24 08/27/24 08/28/24 14:59 22:59 06:59 Intake Total 50 ml 700 ml 1225 ml Output Total 400 ml 350 ml Balance 50 ml 300 ml 875 ml medications Current Medications Medications Dose Ordered Sig/Leonor Route Start Time Stop Time Status Last Admin Dose Admin Levothyroxine Sodium 75 mcg QAM@0600 PO 08/25/24 06:00 08/28/24 05:15 75 MCG Diagnostic Test (Pha) 1 strip ACHS 08/24/24 22:00 08/28/24 06:32 1 STRIP Insulin Human Regular ACHS SC 08/24/24 22:00 Dextrose 50 ml UD PRN IV 08/24/24 17:45 Sodium Chloride 10 ml Q8HR IV 08/24/24 22:00 08/28/24 05:16 10 ML Acetaminophen/ Hydrocodone Bitart 1 tab Q4HP PRN PO 08/24/24 17:45 08/28/24 11:48 1 TAB Ondansetron HCl 4 mg Q4HP PRN IV 08/24/24 17:45 Docusate Sodium 100 mg BIDPRN PRN PO 08/24/24 17:45 Acetaminophen 650 mg Q6HP PRN PO 08/24/24 17:45 Ceftriaxone Sodium 50 ml @ 100 mls/hr DAILY@09 IV 08/25/24 09:00 08/28/24 11:48 100 MLS/HR Nitroglycerin 0.4 mg Q5MINP PRN SL 08/24/24 19:30 Morphine Sulfate 2 mg Q30M PRN IV 08/24/24 19:30 Albuterol 2.5 mg Q4HR NEB 08/25/24 02:00 08/28/24 09:56 2.5 MG Ipratropium [place] 0.5 mg Q4HR NEB 08/25/24 02:00 08/28/24 09:56 0.5 MG Albuterol 2.5 mg Q2HPRN PRN NEB 08/24/24 23:15 08/24/24 23:19 2.5 MG Sodium Bicarbonate 50 ml/ Dextrose 1,050 ml @ 75 mls/hr Q14H IV 08/26/24 10:45 08/28/24 05:12 75 MLS/HR Diphenhydramine HCl 25 mg Q6HP PRN IV 08/27/24 14:00 Pantoprazole Sodium 40 mg DAILY@0600 PO 08/28/24 06:00 08/28/24 05:15 40 MG objective General: NAD, AAOX3 Chest: lung alvarenga clear to auscultation Heart: RRR, no murmur Abdomen: non-distended, no tenderness to palpation, +BS laboratory and microbiology Laboratory Tests 08/28/24 04:54 08/27/24 06:10 Test 08/28/24 04:54 Range/Units Serum Glucose 70 L 74-106 mg/dL Problems(with codes): (1) Obesity (2) Chronic anemia (3) Ventral hernia (4) hypertension COPD (5) Hiatal hernia with GERD and esophagitis Prognosis Plan Continue Protonix 40 mg p.o. q.a.m. Carafate 1 g p.o. q.h.s. Lifestyle modifications for GERD Advance diet as tolerated Continue physical therapy Patient agrees that at this time she is too weak to undergo a bowel prep or do colonoscopy She agreed to follow up in my office as an outpatient to arrange the same Patient lives at home and she has two helpers Patient did not want to go to a post acute rehab center and wants to be discharged home Dietary Evaluation Review Comments: 1. CCHO-60, Cardiac mechanical soft diet 2. explore iron load, consider iron and vitamin supplementation if needed. 3. Monitor PO intake to meet 75% of her needs Expected Outcomes/Goals: Gradual wt loss, controlled DM, Plan discussed with: Patient Capillary Refill: < 3 seconds CC Plasma Assessment Blood Product Administration S: [id number] BRENT DEJESUS MD Aug 28, 2024 11:57
--- NOTE | 2024-08-28 16:54 | DVHPN2 ---
Subjective In bed feeling well and feels weak. Reviewed: H&P, Labs Changes from previous H/P or p: No Changes Eyes: No Pain, No Vision change, No Conjunctivae inflammation, No Eyelid inflammation, No Other, No Redness ENT: No Ear pain, No Ear discharge, No Nose pain, No Nose discharge, No Nose congestion, No Mouth pain, No Mouth swelling, No Throat pain, No Throat swelling, No Other Cardiovascular: No Chest Pain, No Palpitations, No Orthopnea, No Paroxysmal Noc. Dyspnea, No Edema, No Lt Headedness, No Other Respiratory: No Cough, No Dry, No Shortness of breath, No SOB with excertion, No Wheezing, No Hemoptysis, No Pleuritic Pain, No Sputum, No Other Gastrointestinal: No Nausea, No Vomiting, No Abdominal Pain, No Diarrhea, No Constipation, No Melena, No Hematochezia, No Other Genitourinary: No Dysuria, No Frequency, No Incontinence, No Hematuria, No Retention, No Other Musculoskeletal: other (Unable to walk for three weeks); No neck pain, No shoulder pain, No arm pain, No back pain, No hand pain, No leg pain, No foot pain Skin: No Rash, No Lesions, No Jaundice, No Bruising, No Other Objective Vitals Vital Signs Date Time Temp Pulse Resp B/P (MAP) Pulse Ox O2 Delivery O2 Flow Rate FiO2 08/28/24 14:40 65 18 100 08/28/24 14:33 Nasal Cannula* 1 24 08/28/24 12:42 98.5 141/55 (83) 98.5 Intake/Output Intake and Output 08/28/24 07:00 Intake Total 1975 ml Output Total 750 ml Balance 1225 ml Intake Oral 1300 ml IV Total 675 ml Output Urine Total 750 ml General Appearance: Alert, Oriented X3 Lungs: Clear to auscultation Cardiovascular: Regular rate, Normal S1, Normal S2 Abdomen: Normal bowel sounds Medications Current Medications Medications Dose Ordered Sig/Leonor Route Start Time Stop Time Status Last Admin Dose Admin Levothyroxine Sodium 75 mcg QAM@0600 PO 08/25/24 06:00 08/28/24 05:15 75 MCG Dextrose 50 ml UD PRN IV 08/24/24 17:45 Sodium Chloride 10 ml Q8HR IV 08/24/24 22:00 08/28/24 13:30 10 ML Acetaminophen/ Hydrocodone Bitart 1 tab Q4HP PRN PO 08/24/24 17:45 08/28/24 11:48 1 TAB Ondansetron HCl 4 mg Q4HP PRN IV 08/24/24 17:45 Docusate Sodium 100 mg BIDPRN PRN PO 08/24/24 17:45 Acetaminophen 650 mg Q6HP PRN PO 08/24/24 17:45 Ceftriaxone Sodium 50 ml @ 100 mls/hr DAILY@09 IV 08/25/24 09:00 08/28/24 11:48 100 MLS/HR Nitroglycerin 0.4 mg Q5MINP PRN SL 08/24/24 19:30 Morphine Sulfate 2 mg Q30M PRN IV 08/24/24 19:30 Albuterol 2.5 mg Q4HR NEB 08/25/24 02:00 08/28/24 14:32 2.5 MG Ipratropium [place] 0.5 mg Q4HR NEB 08/25/24 02:00 08/28/24 14:32 0.5 MG Albuterol 2.5 mg Q2HPRN PRN NEB 08/24/24 23:15 08/24/24 23:19 2.5 MG Sodium Bicarbonate 50 ml/ Dextrose 1,050 ml @ 75 mls/hr Q14H IV 08/26/24 10:45 08/28/24 05:12 75 MLS/HR Diphenhydramine HCl 25 mg Q6HP PRN IV 08/27/24 14:00 Pantoprazole Sodium 40 mg DAILY@0600 PO 08/28/24 06:00 08/28/24 05:15 40 MG Laboratory Results Laboratory Tests 08/27/24 06:10 08/28/24 04:54 Chemistry Test 08/28/24 04:54 Calcium Level 9.9 mg/dL (8.7-10.4) Urinalysis Test 08/24/24 15:30 08/25/24 00:00 08/25/24 10:03 Urine Mucus Few (None Seen) Urine Protein/Creatinine Ratio 0.57 Urine Total Protein 26.7 mg/dL (1-14) H Urine Color Colorless (Yellow) Urine Clarity Turbid (Clear) H Urine pH 6.0 (5.0-9.0) Urine Specific [place] 1.015 (1.001-1.035) Urine Protein Negative (Negative) Urine Ketones Negative (Negative) Urine Blood Trace /uL (Negative) H Urine Nitrite Negative (Negative) Urine Bilirubin Negative (Negative) Urine Urobilinogen Normal mg/dL (Negative) Urine Leukocyte Esterase 3+ /uL (Negative) Urine RBC 10 /hpf (0 - 4) Urine Microscopic WBC 554 /HPF (0-5) H Urine Squamous Epithelial Cells Few /hpf (<5) Urine Bacteria None seen /hpf (None Seen) Urine Osmolality 489 mOsm/kg Urine Creatinine 46.58 mg/dL (30.0-125.0) Urine Sodium 72 mmol/L (40-220) Urine Glucose Normal mg/dL (Normal) Microbiology Microbiology Date/Time Source Procedure Growth Status 08/24/24 15:30 Voided Urine Urine Culture - Final Klebsiella pneumoniae Complete Assessment/Plan Assessment/Plan 1. anemia s/p transfusion; ppi Had EGD with esophagitis and hiatal hernia Per GI will plan for outpatient colonoscopy Will start iron tablets 2. h/o Sick sinus syndrome, status post pacemaker placement. 3. Hypothyroidism. 4. History of deep venous thrombosis. 5. History of ventral hernia. 6. Chronic obstructive pulmonary disease with chronic respiratory failure. 7. Obesity. 8. Hypertension 9. uti with kleb: iv rocephin 10. hypernatremia: free water 11. acute renal failure ?vasomotor nephropathy Long discussion with daughter ellie over the phone, spent 20 min and answered all questions. Plan discussed with: Patient, Daughter My Orders Orders - MARGARITO NDIAYE MD Procedure Category Date Status Time Complete Blood Count LAB 08/29/24 Verified 05:00 Complete Blood Count LAB 08/30/24 Verified 05:00 Complete Blood Count LAB 08/31/24 Verified 05:00 Complete Blood Count LAB 09/01/24 Verified 05:00 Complete Blood Count LAB 09/02/24 Verified 05:00 Complete Blood Count LAB 09/03/24 Verified 05:00 Complete Blood Count LAB 09/04/24 Verified 05:00 Date of Service: Aug 28, 2024 Billing Provider: MARGARITO NDIAYE MD Common Visit Codes: [id number] INP/OBS CARE(HIGH) MARGARITO NDIAYE MD Aug 28, 2024 16:54
[2024-08-28] MEDS: DOCUSATE SOD 100 MG CAP PO PRN (22:11)
[2024-08-28] MEDS ORDERED: SODIUM BICARB 8.4% 50Meq/50ml SYR Vial IV ONE (22:58)
[2024-08-29] VITALS (18 sets, daily range): BP systolic 117–147; BP diastolic 52–66; PULSE 64–68; RESP 16–20; TEMP 96.7–97.9; O2SAT 95–100
[2024-08-29 08:32] LABS: Basophils # (auto) 0 10 ^3/uL (0-0.2); Basophils % (auto) 0.7 % (0.0-2.0); Eosinophils # (auto) 0.2 10 ^3/uL (0-0.8); Eosinophils % (auto) 2.1 % (0.0-7.0); Hematocrit 24.3 % (36.0-46.0); Hemoglobin 7.8 g/dL (12.2-16.2); Lymphocytes # (auto) 0.9 10 ^3/uL (0.4-5.4); Lymphocytes % (auto) 11.7 % (10.0-50.0); Mean Corpuscular Hemoglobin 30.3 pg (28.0-32.0); Mean Corpuscular Hgb Conc. 32.2 g/dL (32.0-36.0); Mean Corpuscular Volume 94.1 fL (80.0-100.0); Monocytes # (auto) 0.7 10 ^3/uL (0-1.3); Monocytes % (auto) 9.5 % (0.0-12.0); Neutrophils # (auto) 5.7 10 ^3/uL (1.6-8.6); Nucleated Red Blood Cells % 0.1 %; Platelet Count (auto) 189 10^3/uL (140-450); Red Blood Cells 2.58 10^6/uL (4.0-5.20); Red Cell Distribution Width 16.9 % (11.8-14.3); White Blood Cell 7.4 10^3/uL (4.4-10.8)
[2024-08-29 08:39] LABS: Chloride 106 mmol/L (98-107); Potassium 3.9 mmol/L (3.5-5.1); Sodium 140 mmol/L (136-145)
[2024-08-29 08:40] LABS: Anion Gap 10 (5-15); Calcium 9.8 mg/dL (8.7-10.4); Carbon Dioxide 24 mmol/L (20-31)
[2024-08-29 08:45] LABS: Blood Urea Nitrogen 9 mg/dL (9-23); Glucose 96 mg/dL (74-106)
[2024-08-29] MEDS: LIDOCAINE 5% TOPICAL PATCH TOP SCH (15:38)
--- NOTE | 2024-08-29 16:42 | DVHPN2 ---
Subjective In bed feeling well and feels weak. Reviewed: H&P, Labs Changes from previous H/P or p: No Changes Eyes: No Pain, No Vision change, No Conjunctivae inflammation, No Eyelid inflammation, No Other, No Redness ENT: No Ear pain, No Ear discharge, No Nose pain, No Nose discharge, No Nose congestion, No Mouth pain, No Mouth swelling, No Throat pain, No Throat swelling, No Other Cardiovascular: No Chest Pain, No Palpitations, No Orthopnea, No Paroxysmal Noc. Dyspnea, No Edema, No Lt Headedness, No Other Respiratory: No Cough, No Dry, No Shortness of breath, No SOB with excertion, No Wheezing, No Hemoptysis, No Pleuritic Pain, No Sputum, No Other Gastrointestinal: No Nausea, No Vomiting, No Abdominal Pain, No Diarrhea, No Constipation, No Melena, No Hematochezia, No Other Genitourinary: No Dysuria, No Frequency, No Incontinence, No Hematuria, No Retention, No Other Musculoskeletal: other (Unable to walk for three weeks); No neck pain, No shoulder pain, No arm pain, No back pain, No hand pain, No leg pain, No foot pain Skin: No Rash, No Lesions, No Jaundice, No Bruising, No Other Objective Vitals Vital Signs Date Time Temp Pulse Resp B/P (MAP) Pulse Ox O2 Delivery O2 Flow Rate FiO2 08/29/24 13:59 65 16 100 08/29/24 13:51 Nasal Cannula* 1 24 08/29/24 13:00 96.7 147/52 (83) 96.7 Intake/Output Intake and Output 08/29/24 07:00 Intake Total 750 ml Output Total 875 ml Balance -125 ml Intake Oral 700 ml IV Total 50 ml Output Urine Total 875 ml General Appearance: Alert, Oriented X3 Lungs: Clear to auscultation Cardiovascular: Regular rate, Normal S1, Normal S2 Abdomen: Normal bowel sounds Medications Current Medications Medications Dose Ordered Sig/Leonor Route Start Time Stop Time Status Last Admin Dose Admin Levothyroxine Sodium 75 mcg QAM@0600 PO 08/25/24 06:00 08/29/24 06:50 75 MCG Dextrose 50 ml UD PRN IV 08/24/24 17:45 Sodium Chloride 10 ml Q8HR IV 08/24/24 22:00 08/29/24 15:31 10 ML Acetaminophen/ Hydrocodone Bitart 1 tab Q4HP PRN PO 08/24/24 17:45 08/29/24 09:20 1 TAB Ondansetron HCl 4 mg Q4HP PRN IV 08/24/24 17:45 Docusate Sodium 100 mg BIDPRN PRN PO 08/24/24 17:45 08/28/24 22:11 100 MG Acetaminophen 650 mg Q6HP PRN PO 08/24/24 17:45 Ceftriaxone Sodium 50 ml @ 100 mls/hr DAILY@09 IV 08/25/24 09:00 08/29/24 10:13 100 MLS/HR Nitroglycerin 0.4 mg Q5MINP PRN SL 08/24/24 19:30 Morphine Sulfate 2 mg Q30M PRN IV 08/24/24 19:30 Albuterol 2.5 mg Q4HR NEB 08/25/24 02:00 08/29/24 13:51 2.5 MG Ipratropium [place] 0.5 mg Q4HR NEB 08/25/24 02:00 08/29/24 13:51 0.5 MG Albuterol 2.5 mg Q2HPRN PRN NEB 08/24/24 23:15 08/24/24 23:19 2.5 MG Sodium Bicarbonate 50 ml/ Dextrose 1,050 ml @ 75 mls/hr Q14H IV 08/26/24 10:45 08/29/24 15:31 75 MLS/HR Diphenhydramine HCl 25 mg Q6HP PRN IV 08/27/24 14:00 Pantoprazole Sodium 40 mg DAILY@0600 PO 08/28/24 06:00 08/29/24 06:51 40 MG Lidocaine 2 patch DAILY TOP 08/29/24 14:30 08/29/24 15:38 2 PATCH Laboratory Results Laboratory Tests 08/29/24 08:09 Chemistry Test 08/29/24 08:09 Calcium Level 9.8 mg/dL (8.7-10.4) Urinalysis Test 08/24/24 15:30 08/25/24 00:00 08/25/24 10:03 Urine Mucus Few (None Seen) Urine Protein/Creatinine Ratio 0.57 Urine Total Protein 26.7 mg/dL (1-14) H Urine Color Colorless (Yellow) Urine Clarity Turbid (Clear) H Urine pH 6.0 (5.0-9.0) Urine Specific [place] 1.015 (1.001-1.035) Urine Protein Negative (Negative) Urine Ketones Negative (Negative) Urine Blood Trace /uL (Negative) H Urine Nitrite Negative (Negative) Urine Bilirubin Negative (Negative) Urine Urobilinogen Normal mg/dL (Negative) Urine Leukocyte Esterase 3+ /uL (Negative) Urine RBC 10 /hpf (0 - 4) Urine Microscopic WBC 554 /HPF (0-5) H Urine Squamous Epithelial Cells Few /hpf (<5) Urine Bacteria None seen /hpf (None Seen) Urine Osmolality 489 mOsm/kg Urine Creatinine 46.58 mg/dL (30.0-125.0) Urine Sodium 72 mmol/L (40-220) Urine Glucose Normal mg/dL (Normal) Microbiology Microbiology Date/Time Source Procedure Growth Status 08/24/24 15:30 Voided Urine Urine Culture - Final Klebsiella pneumoniae Complete Assessment/Plan Assessment/Plan 1. anemia s/p transfusion; ppi Had EGD with esophagitis and hiatal hernia Per GI will plan for outpatient colonoscopy Will start iron tablets 2. h/o Sick sinus syndrome, status post pacemaker placement. 3. Hypothyroidism. 4. History of deep venous thrombosis. 5. History of ventral hernia. 6. Chronic obstructive pulmonary disease with chronic respiratory failure. 7. Obesity. 8. Hypertension 9. uti with kleb: iv rocephin 10. hypernatremia: free water 11. acute renal failure ?vasomotor nephropathy Long discussion with daughter ellie over the phone, spent 20 min and answered all questions. Plan discussed with: Patient My Orders Orders - MARGARITO NDIAYE MD Procedure Category Date Status Time Basic Metabolic Panel LAB 08/30/24 Verified 05:00 Basic Metabolic Panel LAB 08/31/24 Verified 05:00 Basic Metabolic Panel LAB 09/01/24 Verified 05:00 Basic Metabolic Panel LAB 09/02/24 Verified 05:00 Basic Metabolic Panel LAB 09/03/24 Verified 05:00 Basic Metabolic Panel LAB 09/04/24 Verified 05:00 Iron Panel LAB 08/29/24 Logged 11:14 Iron LAB 08/29/24 Logged 11:14 Lidocaine 5% Topical PHA 08/29/24 In Process Patch (Lidoderm 5% 14:30 Date of Service: Aug 29, 2024 Billing Provider: MARGARITO NDIAYE MD Common Visit Codes: [id number] INP/OBS CARE(HIGH) MARGARITO NDIAYE MD Aug 29, 2024 16:42
[2024-08-29 19:05] LABS: % Iron Saturation 5.1 % (15-50)
[2024-08-30] VITALS (20 sets, daily range): BP systolic 112–143; BP diastolic 58–67; PULSE 65–87; RESP 16–20; TEMP 97.6–99.2; O2SAT 93–100
[2024-08-30] MEDS: DOCUSATE SOD 100 MG CAP PO ONE (02:27)
[2024-08-30 06:16] LABS: Basophils % (auto) 0.7 % (0.0-2.0); Hemoglobin 7.5 g/dL (12.2-16.2); Lymphocytes # (auto) 0.8 10 ^3/uL (0.4-5.4); Monocytes # (auto) 0.8 10 ^3/uL (0-1.3); Red Cell Distribution Width 16.1 % (11.8-14.3)
[2024-08-30 06:17] LABS: Chloride 103 mmol/L (98-107); Sodium 139 mmol/L (136-145)
[2024-08-30 06:18] LABS: Anion Gap 7 (5-15); Calcium 9.6 mg/dL (8.7-10.4); Carbon Dioxide 29 mmol/L (20-31)
[2024-08-30 06:19] LABS: Basophils # (auto) 0.1 10 ^3/uL (0-0.2); Eosinophils # (auto) 0.1 10 ^3/uL (0-0.8); Eosinophils % (auto) 1.9 % (0.0-7.0); Hematocrit 22.1 % (36.0-46.0); Lymphocytes % (auto) 11.2 % (10.0-50.0); Mean Corpuscular Hemoglobin 31.1 pg (28.0-32.0); Mean Corpuscular Hgb Conc. 33.9 g/dL (32.0-36.0); Mean Corpuscular Volume 91.7 fL (80.0-100.0); Monocytes % (auto) 11.3 % (0.0-12.0); Neutrophils # (auto) 5.3 10 ^3/uL (1.6-8.6); Neutrophils % (auto) 74.9 % (37.0-80.0); Nucleated Red Blood Cells % 0.1 %; Platelet Count (auto) 282 10^3/uL (140-450); Red Blood Cells 2.41 10^6/uL (4.0-5.20)
[2024-08-30 06:21] LABS: Potassium 3.2 mmol/L (3.5-5.1)
[2024-08-30 06:23] LABS: Glucose 90 mg/dL (74-106)
[2024-08-30 06:24] LABS: BUN/Creatinine Ratio 16.9 (10.0-20.0); Blood Urea Nitrogen 11 mg/dL (9-23)
[2024-08-30] MEDS: POTASSIUM EFFERVESENT TAB 25 MEQ PO ONE (06:57)
[2024-08-30] MEDS ORDERED: LIDOCAINE 5% TOPICAL PATCH TOP SCH (10:00)
[2024-08-30] MEDS: DOCUSATE SOD 100 MG CAP PO PRN (14:31)
--- NOTE | 2024-08-30 18:32 | DVHPN2 ---
Subjective In bed feeling well and feels weak. Reviewed: H&P, Labs Changes from previous H/P or p: No Changes Eyes: No Pain, No Vision change, No Conjunctivae inflammation, No Eyelid inflammation, No Other, No Redness ENT: No Ear pain, No Ear discharge, No Nose pain, No Nose discharge, No Nose congestion, No Mouth pain, No Mouth swelling, No Throat pain, No Throat swelling, No Other Cardiovascular: No Chest Pain, No Palpitations, No Orthopnea, No Paroxysmal Noc. Dyspnea, No Edema, No Lt Headedness, No Other Respiratory: No Cough, No Dry, No Shortness of breath, No SOB with excertion, No Wheezing, No Hemoptysis, No Pleuritic Pain, No Sputum, No Other Gastrointestinal: No Nausea, No Vomiting, No Abdominal Pain, No Diarrhea, No Constipation, No Melena, No Hematochezia, No Other Genitourinary: No Dysuria, No Frequency, No Incontinence, No Hematuria, No Retention, No Other Musculoskeletal: other (Unable to walk for three weeks); No neck pain, No shoulder pain, No arm pain, No back pain, No hand pain, No leg pain, No foot pain Skin: No Rash, No Lesions, No Jaundice, No Bruising, No Other Objective Vitals Vital Signs Date Time Temp Pulse Resp B/P (MAP) Pulse Ox O2 Delivery O2 Flow Rate FiO2 08/30/24 18:10 67 18 100 08/30/24 18:04 Nasal Cannula* 2 28 08/30/24 17:00 98.1 127/67 (87) 98.1 Intake/Output Intake and Output 08/30/24 06:59 Intake Total 1500 ml Output Total 1050 ml Balance 450 ml Intake Oral 1450 ml IV Total 50 ml Output Urine Total 1050 ml General Appearance: Alert, Oriented X3 Lungs: Clear to auscultation Cardiovascular: Regular rate, Normal S1, Normal S2 Abdomen: Normal bowel sounds Medications Current Medications Medications Dose Ordered Sig/Leonor Route Start Time Stop Time Status Last Admin Dose Admin Levothyroxine Sodium 75 mcg QAM@0600 PO 08/25/24 06:00 08/30/24 05:19 75 MCG Dextrose 50 ml UD PRN IV 08/24/24 17:45 Sodium Chloride 10 ml Q8HR IV 08/24/24 22:00 08/30/24 14:32 10 ML Acetaminophen/ Hydrocodone Bitart 1 tab Q4HP PRN PO 08/24/24 17:45 08/30/24 07:19 1 TAB Ondansetron HCl 4 mg Q4HP PRN IV 08/24/24 17:45 Acetaminophen 650 mg Q6HP PRN PO 08/24/24 17:45 Ceftriaxone Sodium 50 ml @ 100 mls/hr DAILY@09 IV 08/25/24 09:00 08/30/24 09:29 100 MLS/HR Nitroglycerin 0.4 mg Q5MINP PRN SL 08/24/24 19:30 Morphine Sulfate 2 mg Q30M PRN IV 08/24/24 19:30 Albuterol 2.5 mg Q4HR NEB 08/25/24 02:00 08/30/24 18:04 2.5 MG Ipratropium [place] 0.5 mg Q4HR NEB 08/25/24 02:00 08/30/24 18:04 0.5 MG Albuterol 2.5 mg Q2HPRN PRN NEB 08/24/24 23:15 08/24/24 23:19 2.5 MG Sodium Bicarbonate 50 ml/ Dextrose 1,050 ml @ 75 mls/hr Q14H IV 08/26/24 10:45 08/30/24 10:33 75 MLS/HR Diphenhydramine HCl 25 mg Q6HP PRN IV 08/27/24 14:00 Pantoprazole Sodium 40 mg DAILY@0600 PO 08/28/24 06:00 08/30/24 05:19 40 MG Lidocaine 2 patch DAILY TOP 08/29/24 14:30 08/30/24 09:27 2 PATCH Docusate Sodium 100 mg BIDPRN PRN PO 08/30/24 13:15 08/30/24 14:31 100 MG Laboratory Results Laboratory Tests 08/30/24 05:49 Chemistry Test 08/30/24 05:49 Calcium Level 9.6 mg/dL (8.7-10.4) Urinalysis Test 08/24/24 15:30 08/25/24 00:00 08/25/24 10:03 Urine Mucus Few (None Seen) Urine Protein/Creatinine Ratio 0.57 Urine Total Protein 26.7 mg/dL (1-14) H Urine Color Colorless (Yellow) Urine Clarity Turbid (Clear) H Urine pH 6.0 (5.0-9.0) Urine Specific [place] 1.015 (1.001-1.035) Urine Protein Negative (Negative) Urine Ketones Negative (Negative) Urine Blood Trace /uL (Negative) H Urine Nitrite Negative (Negative) Urine Bilirubin Negative (Negative) Urine Urobilinogen Normal mg/dL (Negative) Urine Leukocyte Esterase 3+ /uL (Negative) Urine RBC 10 /hpf (0 - 4) Urine Microscopic WBC 554 /HPF (0-5) H Urine Squamous Epithelial Cells Few /hpf (<5) Urine Bacteria None seen /hpf (None Seen) Urine Osmolality 489 mOsm/kg Urine Creatinine 46.58 mg/dL (30.0-125.0) Urine Sodium 72 mmol/L (40-220) Urine Glucose Normal mg/dL (Normal) Microbiology Microbiology Date/Time Source Procedure Growth Status 08/24/24 15:30 Voided Urine Urine Culture - Final Klebsiella pneumoniae Complete Assessment/Plan Assessment/Plan 1. anemia s/p transfusion; ppi Had EGD with esophagitis and hiatal hernia Per GI will plan for outpatient colonoscopy Will start iron tablets Hb slowly dropping everyday. 2. h/o Sick sinus syndrome, status post pacemaker placement. 3. Hypothyroidism. 4. History of deep venous thrombosis. 5. History of ventral hernia. 6. Chronic obstructive pulmonary disease with chronic respiratory failure. 7. Obesity. 8. Hypertension 9. uti with kleb: iv rocephin 10. hypernatremia: free water resolved 11. acute renal failure ?vasomotor nephropathy Plan discussed with: Patient My Orders Orders - MARGARITO NDIAYE MD Procedure Category Date Status Time Docusate Sodium PHA 08/30/24 In Process Capsule (Colace 13:15 Date of Service: Aug 30, 2024 Billing Provider: MARGARITO NDIAYE MD Common Visit Codes: [id number] INP/OBS CARE(HIGH) MARGARITO NDIAYE MD Aug 30, 2024 18:32
[2024-08-31] VITALS (20 sets, daily range): BP systolic 103–145; BP diastolic 48–61; PULSE 64–71; RESP 16–18; TEMP 97.6–98.4; O2SAT 95–100
[2024-08-31 06:52] LABS: Basophils # (auto) 0 10 ^3/uL (0-0.2); Basophils % (auto) 0.5 % (0.0-2.0); Eosinophils # (auto) 0.1 10 ^3/uL (0-0.8); Eosinophils % (auto) 2.1 % (0.0-7.0); Hematocrit 21.7 % (36.0-46.0); Hemoglobin 7.2 g/dL (12.2-16.2); Lymphocytes # (auto) 1.1 10 ^3/uL (0.4-5.4); Lymphocytes % (auto) 15.8 % (10.0-50.0); Mean Corpuscular Hemoglobin 30.2 pg (28.0-32.0); Mean Corpuscular Hgb Conc. 32.9 g/dL (32.0-36.0); Mean Corpuscular Volume 91.7 fL (80.0-100.0); Monocytes # (auto) 0.8 10 ^3/uL (0-1.3); Monocytes % (auto) 11.7 % (0.0-12.0); Neutrophils # (auto) 4.7 10 ^3/uL (1.6-8.6); Neutrophils % (auto) 69.9 % (37.0-80.0); Nucleated Red Blood Cells % 0.1 %; Platelet Count (auto) 304 10^3/uL (140-450); Red Blood Cells 2.37 10^6/uL (4.0-5.20); Red Cell Distribution Width 16.4 % (11.8-14.3); White Blood Cell 6.7 10^3/uL (4.4-10.8)
[2024-08-31 07:04] LABS: Anion Gap 6 (5-15); Carbon Dioxide 31 mmol/L (20-31); Chloride 103 mmol/L (98-107); Sodium 140 mmol/L (136-145)
[2024-08-31 07:10] LABS: BUN/Creatinine Ratio 13.6 (10.0-20.0); Blood Urea Nitrogen 11 mg/dL (9-23); Glucose 96 mg/dL (74-106)
[2024-08-31 07:13] LABS: Potassium 3.4 mmol/L (3.5-5.1)
--- NOTE | 2024-08-31 10:46 | DVH ---
CHEST RADIOGRAPH Indication: Aspiration Technique: Single frontal view of the chest was obtained Comparison: XY CHEST PORTABLE on DOS: 08/27/24, XY CHEST PORTABLE on DOS: 08/25/24, XY CHEST PORTABLE on DOS: 07/13/24, XY CHEST PORTABLE on DOS: 11/13/22, XY CHEST PORTABLE on DOS: 10/16/22 FINDINGS: Lines and Tubes: Left-sided pacemaker Lungs: No focal consolidation. Pleura: No effusion. No pneumothorax. Cardiomediastinal contours: Unremarkable Bones: No acute osseous abnormality. IMPRESSION: No acute cardiopulmonary disease.
--- NOTE | 2024-08-31 11:15 | DVHPN2 ---
Progress Note Date Seen: Aug 31, 2024 Medical Necessity Reason Pt with a Central, PICC or Fol: Yes The following are medically ne: Oswald Catheter Reason for oswald catheter: Strict I&O Subjective Patient reports: No new complaints Review of Systems: HEENT:Normal, CVS:Normal, RESPIRATORY:Normal, GI:Normal, :Normal, MSK:Normal, NEURO:Normal Objective vital signs Vital Sign Date Time Temp Pulse Resp B/P (MAP) Pulse Ox O2 Delivery O2 Flow Rate FiO2 08/31/24 09:28 65 16 100 08/31/24 09:22 Nasal Cannula 2.0 08/31/24 09:22 28 08/31/24 05:00 97.8 109/53 (71) 97.8 Total Intake and Output 08/30/24 08/30/24 08/31/24 15:00 23:00 07:00 Intake Total 226 ml 200 ml 1650 ml Output Total 1350 ml 450 ml Balance 226 ml -1150 ml 1200 ml medications Current Medications Medications Dose Ordered Sig/Leonor Route Start Time Stop Time Status Last Admin Dose Admin Levothyroxine Sodium 75 mcg QAM@0600 PO 08/25/24 06:00 08/31/24 05:44 75 MCG Dextrose 50 ml UD PRN IV 08/24/24 17:45 Sodium Chloride 10 ml Q8HR IV 08/24/24 22:00 08/31/24 05:44 10 ML Acetaminophen/ Hydrocodone Bitart 1 tab Q4HP PRN PO 08/24/24 17:45 08/31/24 10:07 1 TAB Ondansetron HCl 4 mg Q4HP PRN IV 08/24/24 17:45 Acetaminophen 650 mg Q6HP PRN PO 08/24/24 17:45 Ceftriaxone Sodium 50 ml @ 100 mls/hr DAILY@09 IV 08/25/24 09:00 08/31/24 10:07 100 MLS/HR Nitroglycerin 0.4 mg Q5MINP PRN SL 08/24/24 19:30 Morphine Sulfate 2 mg Q30M PRN IV 08/24/24 19:30 Albuterol 2.5 mg Q4HR NEB 08/25/24 02:00 08/31/24 09:22 2.5 MG Ipratropium [place] 0.5 mg Q4HR NEB 08/25/24 02:00 08/31/24 09:22 0.5 MG Albuterol 2.5 mg Q2HPRN PRN NEB 08/24/24 23:15 08/24/24 23:19 2.5 MG Sodium Bicarbonate 50 ml/ Dextrose 1,050 ml @ 75 mls/hr Q14H IV 08/26/24 10:45 08/31/24 05:44 75 MLS/HR Diphenhydramine HCl 25 mg Q6HP PRN IV 08/27/24 14:00 Pantoprazole Sodium 40 mg DAILY@0600 PO 08/28/24 06:00 08/31/24 05:44 40 MG Lidocaine 2 patch DAILY TOP 08/29/24 14:30 08/31/24 10:13 2 PATCH Docusate Sodium 100 mg BIDPRN PRN PO 08/30/24 13:15 08/30/24 14:31 100 MG Iron Sucrose 110 ml @ 110 mls/hr DAILY@1200 IV 08/31/24 12:00 09/04/24 12:59 Examination: GENERAL:Normal, HEENT:Normal, NECK:Normal, LUNGS:Normal, CVS:Normal, ABDOMEN:Normal, MSK:Normal, SKIN:Normal, NEURO:Normal, :Normal laboratory and microbiology Laboratory Tests 08/31/24 06:33 Test 08/31/24 06:33 Range/Units Serum Glucose 96 74-106 mg/dL Microbiology Date/Time Source Procedure Growth Status 08/24/24 15:30 Voided Urine Urine Culture - Final Klebsiella pneumoniae Complete Problem List/Assessment/Plan Problem List/Assessment/Plan 1. anemia s/p transfusion; ppi 2. h/o Sick sinus syndrome, status post pacemaker placement. 3. Hypothyroidism. 4. History of deep venous thrombosis. 5. History of ventral hernia. 6. Chronic obstructive pulmonary disease with chronic respiratory failure. 7. Obesity. 8. Hypertension 9. uti with kleb: iv rocephin 10. hypernatremia: free water 11. acute renal failure ?vasomotor nephropathy #12 severe left hip/pelvic pain: ct abd/pelvis advance care planning-full code- time spent 19 mins Plan discussed with: Patient Dietary Evaluation Review Comments: 1. CCHO-60, Cardiac mechanical soft diet 2. explore iron load, consider iron and vitamin supplementation if needed. 3. Monitor PO intake to meet 75% of her needs Expected Outcomes/Goals: Gradual wt loss, controlled DM, Sepsis reassessment post fluid Capillary Refill: < 3 seconds Date of Service: Aug 31, 2024 Billing Provider: JOEY CASANOVA MD Common Visit Codes: [id number] INP/OBS CARE(HIGH) Secondary Visit Codes: [id number] CARE PLAN 30 MINUTES CC Plasma Assessment Blood Product Administration S: [id number] JOEY CASANOVA MD Aug 31, 2024 11:15
[2024-08-31] MEDS: POTASSIUM CHL 20 Meq TABLET PO ONE (11:50)
[2024-08-31] MEDS: IRON SUCROSE COMPLEX 110 ML IV SCH (11:50)
--- NOTE | 2024-08-31 15:02 | DVH ---
Exam: CT CT AB PEL WO CON-NO ORAL OR IV History: abp/pelvic pain Comparison Study: [facility] on DOS: 10/25/21 TECHNIQUE: Multidetector CT of the abdomen was performed from lung bases to pubic symphysis. Imaging was performed without IV contrast. Axial, coronal and sagittal multiplanar reformats were obtained fr om the axial data set by the technologist. Radiation Dose Information: CT Dose: CTDI volume is 10.26 mGy. Dose-length product is 532.94 mGy*cm FINDINGS: Evaluation of solid organs is limited due to lack of intravenous contrast use. Findings: Lung Bases: No acute or significant lung base finding. Normal heart size. No pleural or pericardial effusion. Liver: The liver is normal in size. No focal lesions. Gallbladder and Biliary Tree: Unremarkable Spleen: Multiple calcified splenic granulomas. Pancreas: The pancreas is grossly normal in appearance. Adrenal Glands: Unremarkable Kidneys: Punctate nonobstructing calculi right kidney. 2 cm cortical cyst left kidney Bladder: Oliveros catheter in the bladder Bowel: The stomach is grossly normal in appearance. Hiatal hernia with reflux .Small bowel and colon are normal in caliber and distribution. The appendix is not visualized; however, no secondary findin gs of acute appendicitis identified. Ascites: Absent Lymphadenopathy: No mesenteric, retroperitoneal or periportal lymphadenopathy. Abdominal Wall and Mesentery: Unremarkable. Vasculature: The visualized abdominal aorta is normal in size and caliber. Evaluation of abdominal a nd pelvic vessels is limited due to lack of intravenous contrast. Pelvic Organs: Unremarkable Musculoskeletal: No aggressive focal bony lesions, acute fractures or dislocation. Soft tissues: Unremarkable IMPRESSION: 1. No findings of bowel obstruction. 2. Punctate calculus nonobstructing right kidney. 3. Calcified splenic granulomas. 4. Oliveros catheter in the bladder. 5. 2 cm cortical cysts left kidney Radiation optimization: All CT scans at this facility use at least one of these dose optimization te chniques: automated exposure control mA and/or kV adjustment per patient size (includes targeted exa ms where dose is matched to clinical indication) or iterative reconstruction.
--- NOTE | 2024-08-31 17:56 | DVHPN2 ---
Progress Note - Dictate Date Seen: Aug 31, 2024 Medical Necessity Reason Pt with a Central, PICC or Fol: Yes The following are medically ne: Oswald Catheter Reason for oswald catheter: Strict I&O Subjective Patient continues to complain of generalized body aches and weakness Nursing staff reports great difficulty in moving and mobilizing her, patient has not been able to stand up to go to the bedside commode She was able to get up with the physical therapy and walked two steps but continues to moan and complain of difficulty moving No diarrhea or bleeding is reported;Hemoglobin drifted down to 7.2, stool for occult blood is negative Patient had moderate amount of coughing related to COPD exacerbation but this is improving vital signs Vital Sign Date Time Temp Pulse Resp B/P (MAP) Pulse Ox O2 Delivery O2 Flow Rate FiO2 08/31/24 13:55 67 16 100 08/31/24 13:48 Nasal Cannula 2.0 08/31/24 13:48 28 08/31/24 13:00 98.4 145/48 (80) 98.4 Total Intake and Output 08/30/24 08/30/24 08/31/24 15:00 23:00 07:00 Intake Total 226 ml 200 ml 1650 ml Output Total 1350 ml 450 ml Balance 226 ml -1150 ml 1200 ml medications Current Medications Medications Dose Ordered Sig/Leonor Route Start Time Stop Time Status Last Admin Dose Admin Levothyroxine Sodium 75 mcg QAM@0600 PO 08/25/24 06:00 08/31/24 05:44 75 MCG Dextrose 50 ml UD PRN IV 08/24/24 17:45 Sodium Chloride 10 ml Q8HR IV 08/24/24 22:00 08/31/24 13:50 10 ML Acetaminophen/ Hydrocodone Bitart 1 tab Q4HP PRN PO 08/24/24 17:45 08/31/24 10:07 1 TAB Ondansetron HCl 4 mg Q4HP PRN IV 08/24/24 17:45 Acetaminophen 650 mg Q6HP PRN PO 08/24/24 17:45 Ceftriaxone Sodium 50 ml @ 100 mls/hr DAILY@09 IV 08/25/24 09:00 08/31/24 10:07 100 MLS/HR Nitroglycerin 0.4 mg Q5MINP PRN SL 08/24/24 19:30 Morphine Sulfate 2 mg Q30M PRN IV 08/24/24 19:30 Albuterol 2.5 mg Q4HR NEB 08/25/24 02:00 08/31/24 13:48 2.5 MG Ipratropium [place] 0.5 mg Q4HR NEB 08/25/24 02:00 08/31/24 13:48 0.5 MG Albuterol 2.5 mg Q2HPRN PRN NEB 08/24/24 23:15 08/24/24 23:19 2.5 MG Diphenhydramine HCl 25 mg Q6HP PRN IV 08/27/24 14:00 Pantoprazole Sodium 40 mg DAILY@0600 PO 08/28/24 06:00 08/31/24 05:44 40 MG Lidocaine 2 patch DAILY TOP 08/29/24 14:30 08/31/24 10:13 2 PATCH Docusate Sodium 100 mg BIDPRN PRN PO 08/30/24 13:15 08/30/24 14:31 100 MG Iron Sucrose 110 ml @ 110 mls/hr DAILY@1200 IV 08/31/24 12:00 09/04/24 12:59 08/31/24 11:50 110 MLS/HR objective General: NAD, AAOX3 Chest: lung alvarenga clear to auscultation Heart: RRR, no murmur Abdomen: non-distended, no tenderness to palpation, +BS laboratory and microbiology Laboratory Tests 08/31/24 06:33 Test 08/31/24 06:33 Range/Units Serum Glucose 96 74-106 mg/dL Problems(with codes): (1) Chronic anemia (2) Ventral hernia (3) Accelerated hypertension (4) hypertension COPD (5) Degenerative joint disease of both hips (6) Symptomatic anemia (7) Generalized weakness (8) Hiatal hernia with GERD and esophagitis (9) UTI (urinary tract infection) Prognosis Plan I will check vitamin B12 and serum folate ferritin Iron profile is appears to be consistent more with mixed pattern of anemia of chronic disease and iron-deficiency anemia Stool for occult blood was negative I discussed the possibility of a colonoscopy with the patient and the nurse However the patient does not feel that she is ready to undergo a bowel prep and is refusing the colonoscopy Awaiting a CT scan of the abdomen pelvis Physical therapy; pain management and elective colonoscopy once medically stabilized Transfuse 1 unit PRBC if hemoglobin drops below seven Start IV Iron infusions Dietary Evaluation Review Comments: 1. CCHO-60, Cardiac mechanical soft diet 2. explore iron load, consider iron and vitamin supplementation if needed. 3. Monitor PO intake to meet 75% of her needs Expected Outcomes/Goals: Gradual wt loss, controlled DM, Plan discussed with: Patient, Other (Nurse and Dr Parish) Capillary Refill: < 3 seconds CC Plasma Assessment Blood Product Administration S: [id number] BRENT DEJESUS MD Aug 31, 2024 17:55
[2024-09-01] VITALS (23 sets, daily range): BP systolic 109–151; BP diastolic 42–69; PULSE 55–66; RESP 15–20; TEMP 97.7–98.6; O2SAT 98–100
[2024-09-01 09:19] LABS: Basophils # (auto) 0.1 10 ^3/uL (0-0.2); Eosinophils # (auto) 0.2 10 ^3/uL (0-0.8); Hematocrit 23.2 % (36.0-46.0); Hemoglobin 7.6 g/dL (12.2-16.2); Lymphocytes # (auto) 0.7 10 ^3/uL (0.4-5.4); Lymphocytes % (auto) 10.8 % (10.0-50.0); Mean Corpuscular Hemoglobin 30.1 pg (28.0-32.0); Mean Corpuscular Hgb Conc. 32.9 g/dL (32.0-36.0); Mean Corpuscular Volume 91.3 fL (80.0-100.0); Monocytes # (auto) 0.6 10 ^3/uL (0-1.3); Neutrophils # (auto) 4.6 10 ^3/uL (1.6-8.6); Neutrophils % (auto) 75.2 % (37.0-80.0); Nucleated Red Blood Cells % 0.1 %; Platelet Count (auto) 328 10^3/uL (140-450); Red Blood Cells 2.54 10^6/uL (4.0-5.20); Red Cell Distribution Width 16.5 % (11.8-14.3); White Blood Cell 6.1 10^3/uL (4.4-10.8)
[2024-09-01 09:25] LABS: Chloride 106 mmol/L (98-107); Sodium 141 mmol/L (136-145)
[2024-09-01 09:26] LABS: Anion Gap 6 (5-15); Carbon Dioxide 29 mmol/L (20-31)
[2024-09-01 09:27] LABS: Calcium 10.3 mg/dL (8.7-10.4); Potassium 3.3 mmol/L (3.5-5.1)
[2024-09-01 09:31] LABS: BUN/Creatinine Ratio 14.9 (10.0-20.0); Blood Urea Nitrogen 11 mg/dL (9-23); Glucose 98 mg/dL (74-106)
--- NOTE | 2024-09-01 10:58 | DVHPN2 ---
Progress Note Date Seen: Sep 01, 2024 Medical Necessity Reason Pt with a Central, PICC or Fol: Yes The following are medically ne: Oswald Catheter Reason for oswald catheter: Strict I&O Subjective Patient reports: No new complaints Review of Systems: HEENT:Normal, CVS:Normal, RESPIRATORY:Normal, GI:Normal, :Normal, MSK:Normal, NEURO:Normal Objective vital signs Vital Sign Date Time Temp Pulse Resp B/P (MAP) Pulse Ox O2 Delivery O2 Flow Rate FiO2 09/01/24 10:04 66 16 100 09/01/24 09:56 Nasal Cannula* 2 28 09/01/24 09:00 97.7 145/69 (94) 97.7 Total Intake and Output 08/31/24 08/31/24 09/01/24 15:00 23:00 07:00 Intake Total 610 ml 425 ml 440 ml Output Total 450 ml 470 ml Balance 610 ml -25 ml -30 ml medications Current Medications Medications Dose Ordered Sig/Leonor Route Start Time Stop Time Status Last Admin Dose Admin Levothyroxine Sodium 75 mcg QAM@0600 PO 08/25/24 06:00 09/01/24 06:36 75 MCG Dextrose 50 ml UD PRN IV 08/24/24 17:45 Sodium Chloride 10 ml Q8HR IV 08/24/24 22:00 09/01/24 06:36 10 ML Acetaminophen/ Hydrocodone Bitart 1 tab Q4HP PRN PO 08/24/24 17:45 09/01/24 09:11 1 TAB Ondansetron HCl 4 mg Q4HP PRN IV 08/24/24 17:45 Acetaminophen 650 mg Q6HP PRN PO 08/24/24 17:45 Ceftriaxone Sodium 50 ml @ 100 mls/hr DAILY@09 IV 08/25/24 09:00 09/01/24 09:12 100 MLS/HR Nitroglycerin 0.4 mg Q5MINP PRN SL 08/24/24 19:30 Morphine Sulfate 2 mg Q30M PRN IV 08/24/24 19:30 Albuterol 2.5 mg Q4HR NEB 08/25/24 02:00 09/01/24 09:56 2.5 MG Ipratropium [place] 0.5 mg Q4HR NEB 08/25/24 02:00 09/01/24 09:56 0.5 MG Albuterol 2.5 mg Q2HPRN PRN NEB 08/24/24 23:15 08/24/24 23:19 2.5 MG Diphenhydramine HCl 25 mg Q6HP PRN IV 08/27/24 14:00 Pantoprazole Sodium 40 mg DAILY@0600 PO 08/28/24 06:00 09/01/24 06:35 40 MG Lidocaine 2 patch DAILY TOP 08/29/24 14:30 09/01/24 09:11 2 PATCH Docusate Sodium 100 mg BIDPRN PRN PO 08/30/24 13:15 09/01/24 09:11 100 MG Iron Sucrose 110 ml @ 110 mls/hr DAILY@1200 IV 09/01/24 12:00 09/04/24 12:59 Examination: GENERAL:Normal, HEENT:Normal, NECK:Normal, LUNGS:Normal, CVS:Normal, ABDOMEN:Normal, MSK:Normal, SKIN:Normal, NEURO:Normal, :Normal laboratory and microbiology Laboratory Tests 09/01/24 09:04 Test 09/01/24 09:04 Range/Units Serum Glucose 98 74-106 mg/dL Microbiology Date/Time Source Procedure Growth Status 08/24/24 15:30 Voided Urine Urine Culture - Final Klebsiella pneumoniae Complete Problem List/Assessment/Plan Problem List/Assessment/Plan 1. anemia s/p transfusion; ppi, transfuse 2. h/o Sick sinus syndrome, status post pacemaker placement. 3. Hypothyroidism. 4. History of deep venous thrombosis. 5. History of ventral hernia. 6. Chronic obstructive pulmonary disease with chronic respiratory failure. 7. Obesity. 8. Hypertension 9. uti with kleb: iv rocephin 10. hypernatremia: free water 11. acute renal failure ?vasomotor nephropathy #12 severe left hip/pelvic pain: ct abd/pelvis advance care planning-full code- time spent 19 mins Plan discussed with: Patient My Orders My Orders Orders - JOEY CASANOVA MD Procedure Category Date Status Time Ct Ab Pel Wo Con-No CT 08/31/24 Resulted Oral Or Iv 11:10 * Telemetry Registered Nurse CONS 09/01/24 Verified Consult Packedcell-Noactive BBK 09/01/24 Verified Bleeding 10:56 Type And Screen BBK 09/01/24 Verified 10:56 Administer Blood MARGI 09/01/24 Verified Products 10:56 Potassium Er Tablet PHA 09/01/24 Verified (Klor-Con Tablet) 11:00 Basic Metabolic Panel LAB 09/02/24 Verified 06:00 Complete Blood Count LAB 09/02/24 Verified 06:00 Dietary Evaluation Review Comments: 1. CCHO-60, Cardiac mechanical soft diet 2. explore iron load, consider iron and vitamin supplementation if needed. 3. Monitor PO intake to meet 75% of her needs Expected Outcomes/Goals: Gradual wt loss, controlled DM, Sepsis reassessment post fluid Capillary Refill: < 3 seconds Date of Service: Sep 01, 2024 Billing Provider: JOEY CASANOVA MD Common Visit Codes: [id number] INP/OBS CARE(HIGH) CC Plasma Assessment Blood Product Administration S: [id number] JOEY CASANOVA MD Sep 01, 2024 10:58
[2024-09-01 10:59] LABS: Folate (Folic Acid) 35.25 ng/mL (>5.38)
[2024-09-01] MEDS: IRON SUCROSE COMPLEX 110 ML IV SCH (11:08)
[2024-09-01] MEDS: POTASSIUM CHL 20 Meq TABLET PO ONE (12:44)
--- NOTE | 2024-09-01 18:05 | DVHPN2 ---
Progress Note - Dictate Date Seen: Sep 01, 2024 Medical Necessity Reason Pt with a Central, PICC or Fol: Yes The following are medically ne: Oswald Catheter Reason for oswald catheter: Strict I&O Subjective Patient continues to complain of generalized body aches and weakness Nursing staff reports great difficulty in moving and mobilizing her, patient has not been able to stand up to go to the bedside commode She was able to get up with the physical therapy and walked two steps but continues to moan and complain of difficulty moving No diarrhea or bleeding is reported;Hemoglobin stable at 7.6, stool for occult blood is negative vital signs Vital Sign Date Time Temp Pulse Resp B/P (MAP) Pulse Ox O2 Delivery O2 Flow Rate FiO2 09/01/24 15:59 98.4 65 18 109/69 98.4 09/01/24 14:48 100 09/01/24 14:41 Nasal Cannula 2.0 09/01/24 14:41 28 Total Intake and Output 08/31/24 08/31/24 09/01/24 15:00 23:00 07:00 Intake Total 610 ml 425 ml 440 ml Output Total 450 ml 470 ml Balance 610 ml -25 ml -30 ml medications Current Medications Medications Dose Ordered Sig/Leonor Route Start Time Stop Time Status Last Admin Dose Admin Levothyroxine Sodium 75 mcg QAM@0600 PO 08/25/24 06:00 09/01/24 06:36 75 MCG Dextrose 50 ml UD PRN IV 08/24/24 17:45 Sodium Chloride 10 ml Q8HR IV 08/24/24 22:00 09/01/24 12:44 10 ML Acetaminophen/ Hydrocodone Bitart 1 tab Q4HP PRN PO 08/24/24 17:45 09/01/24 14:34 1 TAB Ondansetron HCl 4 mg Q4HP PRN IV 08/24/24 17:45 Acetaminophen 650 mg Q6HP PRN PO 08/24/24 17:45 Ceftriaxone Sodium 50 ml @ 100 mls/hr DAILY@09 IV 08/25/24 09:00 09/01/24 09:12 100 MLS/HR Nitroglycerin 0.4 mg Q5MINP PRN SL 08/24/24 19:30 Morphine Sulfate 2 mg Q30M PRN IV 08/24/24 19:30 Albuterol 2.5 mg Q4HR NEB 08/25/24 02:00 09/01/24 14:40 2.5 MG Ipratropium [place] 0.5 mg Q4HR NEB 08/25/24 02:00 09/01/24 14:40 0.5 MG Albuterol 2.5 mg Q2HPRN PRN NEB 08/24/24 23:15 08/24/24 23:19 2.5 MG Diphenhydramine HCl 25 mg Q6HP PRN IV 08/27/24 14:00 Pantoprazole Sodium 40 mg DAILY@0600 PO 08/28/24 06:00 09/01/24 06:35 40 MG Lidocaine 2 patch DAILY TOP 08/29/24 14:30 09/01/24 09:11 2 PATCH Docusate Sodium 100 mg BIDPRN PRN PO 08/30/24 13:15 09/01/24 09:11 100 MG Iron Sucrose 110 ml @ 110 mls/hr DAILY@1200 IV 09/01/24 12:00 09/04/24 12:59 09/01/24 11:08 110 MLS/HR objective General: NAD, AAOX3 Chest: lung alvarenga clear to auscultation Heart: RRR, no murmur Abdomen: non-distended, no tenderness to palpation, +BS laboratory and microbiology Laboratory Tests 09/01/24 09:04 Test 09/01/24 09:04 Range/Units Serum Glucose 98 74-106 mg/dL ABD PELVIC CT SCAN IMPRESSION: 1. No findings of bowel obstruction. 2. Punctate calculus nonobstructing right kidney. 3. Calcified splenic granulomas. 4. Oswald catheter in the bladder. 5. 2 cm cortical cysts left kidney Problems(with codes): (1) COPD exacerbation (2) Chronic anemia (3) Ventral hernia (4) Degenerative joint disease of both hips Prognosis PLAN Pt is receiving 2 unit PRBC Pt is also getting IV Iron infusion Continue PPI for GERD I offered an inpt colonoscopy however pt is still refusing Discharge planning as per hospitalist Dietary Evaluation Review Comments: 1. CCHO-60, Cardiac mechanical soft diet 2. explore iron load, consider iron and vitamin supplementation if needed. 3. Monitor PO intake to meet 75% of her needs Expected Outcomes/Goals: Gradual wt loss, controlled DM, Plan discussed with: Patient, Other (Nurse and Dr Parish) Capillary Refill: < 3 seconds CC Plasma Assessment Blood Product Administration S: [id number] BRENT DEJESUS MD Sep 01, 2024 18:05
[2024-09-02] VITALS (18 sets, daily range): BP systolic 123–153; BP diastolic 49–72; PULSE 64–67; RESP 16–20; TEMP 97–99; O2SAT 97–100
[2024-09-02 07:35] LABS: Basophils # (auto) 0 10 ^3/uL (0-0.2); Basophils % (auto) 0.7 % (0.0-2.0); Eosinophils # (auto) 0.2 10 ^3/uL (0-0.8); Eosinophils % (auto) 2.7 % (0.0-7.0); Hemoglobin 9.6 g/dL (12.2-16.2); Lymphocytes # (auto) 0.8 10 ^3/uL (0.4-5.4); Lymphocytes % (auto) 12.4 % (10.0-50.0); Mean Corpuscular Hemoglobin 30.5 pg (28.0-32.0); Mean Corpuscular Hgb Conc. 32.9 g/dL (32.0-36.0); Mean Corpuscular Volume 92.6 fL (80.0-100.0); Monocytes # (auto) 0.6 10 ^3/uL (0-1.3); Monocytes % (auto) 9.7 % (0.0-12.0); Neutrophils # (auto) 4.8 10 ^3/uL (1.6-8.6); Neutrophils % (auto) 74.5 % (37.0-80.0); Nucleated Red Blood Cells % 0.1 %; Platelet Count (auto) 331 10^3/uL (140-450); Red Blood Cells 3.14 10^6/uL (4.0-5.20); Red Cell Distribution Width 16.3 % (11.8-14.3); White Blood Cell 6.5 10^3/uL (4.4-10.8)
[2024-09-02 07:45] LABS: Anion Gap 9 (5-15); Carbon Dioxide 25 mmol/L (20-31); Potassium 4.4 mmol/L (3.5-5.1); Sodium 142 mmol/L (136-145)
[2024-09-02 07:47] LABS: Calcium 10.8 mg/dL (8.7-10.4); Chloride 108 mmol/L (98-107)
[2024-09-02 07:51] LABS: BUN/Creatinine Ratio 17.1 (10.0-20.0); Blood Urea Nitrogen 12 mg/dL (9-23); Glucose 88 mg/dL (74-106)
--- NOTE | 2024-09-02 11:15 | DVHPN2 ---
Progress Note Date Seen: Sep 02, 2024 Medical Necessity Reason Pt with a Central, PICC or Fol: Yes The following are medically ne: Oswald Catheter Reason for oswald catheter: Strict I&O Subjective Patient reports: No new complaints Review of Systems: HEENT:Normal, CVS:Normal, RESPIRATORY:Normal, GI:Normal, :Normal, MSK:Normal, NEURO:Normal Objective vital signs Vital Sign Date Time Temp Pulse Resp B/P (MAP) Pulse Ox O2 Delivery O2 Flow Rate FiO2 09/02/24 09:15 66 18 100 09/02/24 09:05 Nasal Cannula 2.0 09/02/24 09:05 28 09/02/24 09:00 97.0 153/65 (94) 97.0 Total Intake and Output 09/01/24 09/01/24 09/02/24 15:00 23:00 07:00 Intake Total 750 ml 200 ml Output Total 450 ml 350 ml Balance 300 ml -150 ml medications Current Medications Medications Dose Ordered Sig/Leonor Route Start Time Stop Time Status Last Admin Dose Admin Levothyroxine Sodium 75 mcg QAM@0600 PO 08/25/24 06:00 09/02/24 06:23 75 MCG Dextrose 50 ml UD PRN IV 08/24/24 17:45 Sodium Chloride 10 ml Q8HR IV 08/24/24 22:00 09/02/24 06:22 10 ML Acetaminophen/ Hydrocodone Bitart 1 tab Q4HP PRN PO 08/24/24 17:45 09/02/24 06:37 1 TAB Ondansetron HCl 4 mg Q4HP PRN IV 08/24/24 17:45 Acetaminophen 650 mg Q6HP PRN PO 08/24/24 17:45 Ceftriaxone Sodium 50 ml @ 100 mls/hr DAILY@09 IV 08/25/24 09:00 09/02/24 09:07 100 MLS/HR Nitroglycerin 0.4 mg Q5MINP PRN SL 08/24/24 19:30 Morphine Sulfate 2 mg Q30M PRN IV 08/24/24 19:30 Albuterol 2.5 mg Q4HR NEB 08/25/24 02:00 09/02/24 09:05 2.5 MG Ipratropium [place] 0.5 mg Q4HR NEB 08/25/24 02:00 09/02/24 09:05 0.5 MG Albuterol 2.5 mg Q2HPRN PRN NEB 08/24/24 23:15 08/24/24 23:19 2.5 MG Diphenhydramine HCl 25 mg Q6HP PRN IV 08/27/24 14:00 Pantoprazole Sodium 40 mg DAILY@0600 PO 08/28/24 06:00 09/02/24 06:22 40 MG Lidocaine 2 patch DAILY TOP 08/29/24 14:30 09/02/24 09:07 2 PATCH Docusate Sodium 100 mg BIDPRN PRN PO 08/30/24 13:15 09/01/24 09:11 100 MG Iron Sucrose 110 ml @ 110 mls/hr DAILY@1200 IV 09/01/24 12:00 09/04/24 12:59 09/01/24 11:08 110 MLS/HR Examination: GENERAL:Normal, HEENT:Normal, NECK:Normal, LUNGS:Normal, CVS:Normal, ABDOMEN:Normal, MSK:Normal, SKIN:Normal, NEURO:Normal, :Normal laboratory and microbiology Laboratory Tests 09/02/24 06:49 Test 09/02/24 06:49 Range/Units Serum Glucose 88 74-106 mg/dL Microbiology Date/Time Source Procedure Growth Status 08/24/24 15:30 Voided Urine Urine Culture - Final Klebsiella pneumoniae Complete Problem List/Assessment/Plan Problem List/Assessment/Plan 1. anemia s/p transfusion; ppi, transfuse 2. h/o Sick sinus syndrome, status post pacemaker placement. 3. Hypothyroidism. 4. History of deep venous thrombosis. 5. History of ventral hernia. 6. Chronic obstructive pulmonary disease with chronic respiratory failure. 7. Obesity. 8. Hypertension 9. uti with kleb: iv rocephin 10. hypernatremia: free water 11. acute renal failure ?vasomotor nephropathy #12 severe left hip/pelvic pain: xray, start cymbalta advance care planning-full code- time spent 19 mins Plan discussed with: Patient Dietary Evaluation Review Comments: 1. CCHO-60, Cardiac mechanical soft diet 2. explore iron load, consider iron and vitamin supplementation if needed. 3. Monitor PO intake to meet 75% of her needs Expected Outcomes/Goals: Gradual wt loss, controlled DM, Sepsis reassessment post fluid Capillary Refill: < 3 seconds Date of Service: Sep 02, 2024 Billing Provider: JOEY CASANOVA MD Common Visit Codes: [id number] INP/OBS CARE(HIGH) CC Plasma Assessment Blood Product Administration S: [id number] JOEY CASANOVA MD Sep 02, 2024 11:15
[2024-09-02] MEDS: GABAPENTIN 100 MG CAP PO ONE (11:36)
[2024-09-02] MEDS: DULoxetine HCL 30 MG CAP PO ONE (11:36)
--- NOTE | 2024-09-02 12:14 | DVH ---
Indication: pain Technique: 2 views left hip Comparison: 08/31/2024 CT abdomen pelvis FINDINGS/IMPRESSION: Moderate to severe left and moderate right hip degenerative changes. Lucency seen projecting over the left superior pubic ramus which could represent overlapping shadows, fracture. Recommend CT pelvis to further evaluate. Atherosclerotic disease. Moderate bilateral sacroiliac degenerative joint disease.
--- NOTE | 2024-09-02 15:01 | DVH ---
Exam: CT PELVIS WO CONTRAST History: rule out pelvis fx Comparison Study: None TECHNIQUE: Multidetector CT of the abdomen and pelvis was performed from lung bases to ischial tubero sities. Imaging was performed without IV contrast using axial images. Coronal and sagittal reformats were obtained from the axial data set by the technologist. Radiation Dose Information: CT Dose: CTDI volume is 19.23 mGy. Dose-length product is 663.84 mGy*cm FINDINGS: Evaluation of solid organs is limited due to lack of intravenous contrast use. Findings: No fractures of the bony ring of the pelvis or hips. There is narrowing of the left hip joint compared to the right with subchondral sclerosis and osteoph yte formation Scattered radiolucencies are seen in the lower lumbar spine and in the bony pelvis There is no soft tissue swelling in the periarticular musculature. No abnormal masses or fluid collec tions in the true pelvis. A Oliveros catheter in the urinary bladder. IMPRESSION: 1. No acute fracture. 2. Degenerative changes left hip 3. Scattered radiolucencies throughout the lower lumbar spine and in the bony pelvis. Can not rule o ut malignancy. May consider nuclear medicine bone scan Radiation optimization: All CT scans at this facility use at least one of these dose optimization william hniques: automated exposure control mA and/or kV adjustment per patient size (includes targeted exam s where dose is matched to clinical indication) or iterative reconstruction.
--- NOTE | 2024-09-02 15:45 | DVHPN2 ---
Progress Note - Dictate Date Seen: Sep 02, 2024 Medical Necessity Reason Pt with a Central, PICC or Fol: Yes The following are medically ne: Oswald Catheter Reason for oswald catheter: Strict I&O Subjective Patient's hemoglobin up to 9.6 S/P 2 units PRBC, no active bleeding, stool for occult blood negative Patient continues to complain of generalized body aches and weakness; slightly better Nursing staff reports great difficulty in moving and mobilizing her, patient has not been able to stand up to go to the bedside commode She was able to get up with the physical therapy and walked two steps but continues to moan and complain of difficulty moving vital signs Vital Sign Date Time Temp Pulse Resp B/P (MAP) Pulse Ox O2 Delivery O2 Flow Rate FiO2 09/02/24 14:27 65 20 100 09/02/24 14:15 Nasal Cannula 2.0 09/02/24 14:15 28 09/02/24 09:00 97.0 153/65 (94) 97.0 Total Intake and Output 09/01/24 09/01/24 09/02/24 15:00 23:00 07:00 Intake Total 750 ml 200 ml Output Total 450 ml 350 ml Balance 300 ml -150 ml medications Current Medications Medications Dose Ordered Sig/Leonor Route Start Time Stop Time Status Last Admin Dose Admin Levothyroxine Sodium 75 mcg QAM@0600 PO 08/25/24 06:00 09/02/24 06:23 75 MCG Dextrose 50 ml UD PRN IV 08/24/24 17:45 Sodium Chloride 10 ml Q8HR IV 08/24/24 22:00 09/02/24 06:22 10 ML Acetaminophen/ Hydrocodone Bitart 1 tab Q4HP PRN PO 08/24/24 17:45 09/02/24 12:49 1 TAB Ondansetron HCl 4 mg Q4HP PRN IV 08/24/24 17:45 Acetaminophen 650 mg Q6HP PRN PO 08/24/24 17:45 Ceftriaxone Sodium 50 ml @ 100 mls/hr DAILY@09 IV 08/25/24 09:00 09/02/24 09:07 100 MLS/HR Nitroglycerin 0.4 mg Q5MINP PRN SL 08/24/24 19:30 Morphine Sulfate 2 mg Q30M PRN IV 08/24/24 19:30 Albuterol 2.5 mg Q4HR NEB 08/25/24 02:00 09/02/24 14:15 2.5 MG Ipratropium [place] 0.5 mg Q4HR NEB 08/25/24 02:00 09/02/24 14:15 0.5 MG Albuterol 2.5 mg Q2HPRN PRN NEB 08/24/24 23:15 08/24/24 23:19 2.5 MG Diphenhydramine HCl 25 mg Q6HP PRN IV 08/27/24 14:00 Pantoprazole Sodium 40 mg DAILY@0600 PO 08/28/24 06:00 09/02/24 06:22 40 MG Lidocaine 2 patch DAILY TOP 08/29/24 14:30 09/02/24 09:07 2 PATCH Docusate Sodium 100 mg BIDPRN PRN PO 08/30/24 13:15 09/01/24 09:11 100 MG Iron Sucrose 110 ml @ 110 mls/hr DAILY@1200 IV 09/01/24 12:00 09/04/24 12:59 09/02/24 12:27 110 MLS/HR Amiodarone HCl 200 mg Q12HR PO 09/02/24 22:00 Duloxetine HCl 30 mg BID PO 09/02/24 22:00 Gabapentin 100 mg BID PO 09/02/24 22:00 objective General: NAD, AAOX3 Chest: lung alvarenga clear to auscultation Heart: RRR, no murmur Abdomen: non-distended, no tenderness to palpation, +BS laboratory and microbiology Laboratory Tests 09/02/24 06:49 Test 09/02/24 06:49 Range/Units Serum Glucose 88 74-106 mg/dL PELVIC CT SCAN IMPRESSION: 1. No acute fracture. 2. Degenerative changes left hip 3. Scattered radiolucencies throughout the lower lumbar spine and in the bony pelvis. Can not rule out malignancy. May consider nuclear medicine bone scan Hip X RAY FINDINGS/IMPRESSION: Moderate to severe left and moderate right hip degenerative changes. Lucency seen projecting over the left superior pubic ramus which could represent overlapping shadows, fracture. Recommend CT pelvis to further evaluate. Atherosclerotic disease. Moderate bilateral sacroiliac degenerative joint disease. CT SCAN ABD PELVIS IMPRESSION: 1. No findings of bowel obstruction. 2. Punctate calculus nonobstructing right kidney. 3. Calcified splenic granulomas. 4. Oswald catheter in the bladder. 5. 2 cm cortical cysts left kidney Problems(with codes): (1) Chronic anemia (2) Obesity (3) hypertension COPD (4) Degenerative joint disease of both hips (5) Generalized weakness Prognosis Plan I will order tumor markers Patient will need workup for possible multiple myeloma Pain control Physical therapy IV antibiotics for Klebsiella UTI Dietary Evaluation Review Comments: 1. CCHO-60, Cardiac mechanical soft diet 2. explore iron load, consider iron and vitamin supplementation if needed. 3. Monitor PO intake to meet 75% of her needs Expected Outcomes/Goals: Gradual wt loss, controlled DM, Plan discussed with: Patient Capillary Refill: < 3 seconds CC Plasma Assessment Blood Product Administration S: [id number] BRENT DEJESUS MD Sep 02, 2024 15:44
[2024-09-02] MEDS: AMIODARONE HCL 200 MG TAB PO SCH (22:27)
[2024-09-02] MEDS: DULoxetine HCL 30 MG CAP PO SCH (22:27)
[2024-09-02] MEDS: GABAPENTIN 100 MG CAP PO SCH (22:28)
[2024-09-03] VITALS (14 sets, daily range): BP systolic 142–153; BP diastolic 47–73; PULSE 62–67; RESP 16–18; TEMP 96.9–97.6; O2SAT 94–100
[2024-09-03] MEDS: HYDROcodone-ACET 5/325MG TAB PO PRN (02:03)
[2024-09-03 06:54] LABS: Basophils # (auto) 0.1 10 ^3/uL (0-0.2); Basophils % (auto) 0.7 % (0.0-2.0); Eosinophils # (auto) 0.2 10 ^3/uL (0-0.8); Hematocrit 26.5 % (36.0-46.0); Hemoglobin 8.9 g/dL (12.2-16.2); Lymphocytes # (auto) 0.8 10 ^3/uL (0.4-5.4); Mean Corpuscular Hemoglobin 30.7 pg (28.0-32.0); Mean Corpuscular Hgb Conc. 33.7 g/dL (32.0-36.0); Mean Corpuscular Volume 91.2 fL (80.0-100.0); Monocytes # (auto) 0.8 10 ^3/uL (0-1.3); Monocytes % (auto) 10.4 % (0.0-12.0); Neutrophils # (auto) 5.7 10 ^3/uL (1.6-8.6); Neutrophils % (auto) 74.9 % (37.0-80.0); Platelet Count (auto) 330 10^3/uL (140-450); Red Blood Cells 2.91 10^6/uL (4.0-5.20); Red Cell Distribution Width 15.9 % (11.8-14.3); White Blood Cell 7.6 10^3/uL (4.4-10.8)
[2024-09-03 07:03] LABS: Calcium 9.7 mg/dL (8.7-10.4); Chloride 105 mmol/L (98-107); Sodium 140 mmol/L (136-145)
[2024-09-03 07:04] LABS: Anion Gap 7 (5-15); Carbon Dioxide 28 mmol/L (20-31)
[2024-09-03 07:09] LABS: BUN/Creatinine Ratio 17.2 (10.0-20.0); Blood Urea Nitrogen 10 mg/dL (9-23); Glucose 78 mg/dL (74-106)
--- NOTE | 2024-09-03 10:36 | DVHPN2 ---
Progress Note Date Seen: Sep 03, 2024 Medical Necessity Reason Pt with a Central, PICC or Fol: Yes The following are medically ne: Oswald Catheter Reason for oswald catheter: Strict I&O Subjective Patient reports: No new complaints Review of Systems: HEENT:Normal, CVS:Normal, RESPIRATORY:Normal, GI:Normal, :Normal, MSK:Normal, NEURO:Normal Objective vital signs Vital Sign Date Time Temp Pulse Resp B/P (MAP) Pulse Ox O2 Delivery O2 Flow Rate FiO2 09/03/24 09:57 67 16 100 09/03/24 09:50 Nasal Cannula 2.0 09/03/24 09:50 28 09/03/24 05:00 96.9 142/73 (96) 96.9 Total Intake and Output 09/02/24 09/02/24 09/03/24 15:00 23:00 07:00 Intake Total 50 ml 350 ml 0 ml Output Total 300 ml 450 ml Balance 50 ml 50 ml -450 ml medications Current Medications Medications Dose Ordered Sig/Leonor Route Start Time Stop Time Status Last Admin Dose Admin Levothyroxine Sodium 75 mcg QAM@0600 PO 08/25/24 06:00 09/03/24 05:46 75 MCG Dextrose 50 ml UD PRN IV 08/24/24 17:45 Sodium Chloride 10 ml Q8HR IV 08/24/24 22:00 09/03/24 05:51 10 ML Ondansetron HCl 4 mg Q4HP PRN IV 08/24/24 17:45 Acetaminophen 650 mg Q6HP PRN PO 08/24/24 17:45 Ceftriaxone Sodium 50 ml @ 100 mls/hr DAILY@09 IV 08/25/24 09:00 09/03/24 09:10 100 MLS/HR Nitroglycerin 0.4 mg Q5MINP PRN SL 08/24/24 19:30 Albuterol 2.5 mg Q4HR NEB 08/25/24 02:00 09/03/24 09:49 2.5 MG Ipratropium [place] 0.5 mg Q4HR NEB 08/25/24 02:00 09/03/24 09:49 0.5 MG Albuterol 2.5 mg Q2HPRN PRN NEB 08/24/24 23:15 08/24/24 23:19 2.5 MG Diphenhydramine HCl 25 mg Q6HP PRN IV 08/27/24 14:00 Pantoprazole Sodium 40 mg DAILY@0600 PO 08/28/24 06:00 09/03/24 05:46 40 MG Lidocaine 2 patch DAILY TOP 08/29/24 14:30 09/03/24 09:21 2 PATCH Docusate Sodium 100 mg BIDPRN PRN PO 08/30/24 13:15 09/01/24 09:11 100 MG Iron Sucrose 110 ml @ 110 mls/hr DAILY@1200 IV 09/01/24 12:00 09/04/24 12:59 09/02/24 12:27 110 MLS/HR Amiodarone HCl 200 mg Q12HR PO 09/02/24 22:00 09/03/24 09:21 200 MG Duloxetine HCl 30 mg BID PO 09/02/24 22:00 09/03/24 09:10 30 MG Gabapentin 100 mg BID PO 09/02/24 22:00 09/03/24 09:11 100 MG Acetaminophen/ Hydrocodone Bitart 1 tab Q4HP PRN PO 09/02/24 18:30 09/03/24 09:20 1 TAB Examination: GENERAL:Normal, HEENT:Normal, NECK:Normal, LUNGS:Normal, CVS:Normal, ABDOMEN:Normal, MSK:Normal, SKIN:Normal, NEURO:Normal, :Normal laboratory and microbiology Laboratory Tests 09/03/24 06:29 Test 09/03/24 06:29 Range/Units Serum Glucose 78 74-106 mg/dL Microbiology Date/Time Source Procedure Growth Status 08/24/24 15:30 Voided Urine Urine Culture - Final Klebsiella pneumoniae Complete Problem List/Assessment/Plan Problem List/Assessment/Plan 1. anemia s/p transfusion; ppi, transfuse 2. h/o Sick sinus syndrome, status post pacemaker placement. 3. Hypothyroidism. 4. History of deep venous thrombosis. 5. History of ventral hernia. 6. Chronic obstructive pulmonary disease with chronic respiratory failure. 7. Obesity. 8. Hypertension 9. uti with kleb: iv rocephin 10. hypernatremia: free water 11. acute renal failure ?vasomotor nephropathy #12 severe left hip/pelvic pain/ djd left hip: bone scan advance care planning-full code- time spent 19 mins Plan discussed with: Patient My Orders My Orders Orders - JOEY CASANOVA MD Procedure Category Date Status Time Amiodarone Tablet PHA 09/02/24 In Process (Cordarone Tablet) 22:00 Duloxetine Hcl PHA 09/02/24 In Process Capsule (Cymbalta 22:00 Gabapentin Capsule PHA 09/02/24 In Process (Neurontin Capsule) 22:00 L Hip Complete Xray XY 09/02/24 Resulted 11:[address] 09/02/24 Resulted 14:18 Dietary Evaluation Review Comments: 1. CCHO-60, Cardiac mechanical soft diet 2. explore iron load, consider iron and vitamin supplementation if needed. 3. Monitor PO intake to meet 75% of her needs Expected Outcomes/Goals: Gradual wt loss, controlled DM, Sepsis reassessment post fluid Capillary Refill: < 3 seconds Date of Service: Sep 03, 2024 Billing Provider: JOEY CASANOVA MD Common Visit Codes: [id number] INP/OBS CARE(HIGH) CC Plasma Assessment Blood Product Administration S: [id number] JOEY CASANOVA MD Sep 03, 2024 10:36
[2024-09-03] MEDS: MORPHINE SULFATE 4 MG/ML SYR/VIAL IV PRN (11:49)
--- NOTE | 2024-09-03 15:12 | DVH ---
EXAM: NM BONE WHOLE BODY History: LUCENCIES SKELETAL SYSTEM Comparison Study: None TECHNIQUE: At approximately 3 hours following intravenous administration 24.4 mCi of Tc-99m MDP, ante rior and posterior whole body planar images were obtained. FINDINGS: No suspicious foci of tracer activity to suggest osteoblastic metastases. Focal radiotracer uptake al maria de jesus the occiput. Whole-body images demonstrate unremarkable radiotracer uptake along the axial and appendicular skelet on. Physiologic radiotracer distribution in bilateral kidneys and urinary bladder. Oliveros catheter. Degenerative changes in the shoulders, hips, knees, and ankles. IMPRESSION: 1. No scintigraphic evidence of osteoblastic metastases. Given history of osteolytic lesions, a PET s can is more appropriate for evaluation in this setting. 2. Focal radiotracer uptake along the occiput, nonspecific. Consider CT or radiographs for further ev aluation.
--- NOTE | 2024-09-03 21:21 | DVHPN2 ---
Progress Note - Dictate Date Seen: Sep 03, 2024 Medical Necessity Reason Pt with a Central, PICC or Fol: Yes The following are medically ne: Oswald Catheter Reason for oswald catheter: Strict I&O Subjective Patient's hemoglobin at 8.9 S/P 2 units PRBC, no active bleeding, stool for occult blood negative Patient continues to complain of generalized body aches and weakness; slightly better Bone scan was negative, patient has osteolytic versus osteoblastic lesions and they recommended a PET scan Lower spine and pelvic distribution of osteolytic lesions suspicious for possible uterine or bladder primary source vital signs Vital Sign Date Time Temp Pulse Resp B/P (MAP) Pulse Ox O2 Delivery O2 Flow Rate FiO2 09/03/24 21:00 97.5 67 18 153/72 (99) 98 97.5 09/03/24 20:15 Nasal Cannula* 2 28 Total Intake and Output 09/02/24 09/02/24 09/03/24 15:00 23:00 07:00 Intake Total 50 ml 350 ml 0 ml Output Total 300 ml 450 ml Balance 50 ml 50 ml -450 ml medications Current Medications Medications Dose Ordered Sig/Leonor Route Start Time Stop Time Status Last Admin Dose Admin Levothyroxine Sodium 75 mcg QAM@0600 PO 08/25/24 06:00 09/03/24 05:46 75 MCG Dextrose 50 ml UD PRN IV 08/24/24 17:45 Sodium Chloride 10 ml Q8HR IV 08/24/24 22:00 09/03/24 14:00 10 ML Ondansetron HCl 4 mg Q4HP PRN IV 08/24/24 17:45 Acetaminophen 650 mg Q6HP PRN PO 08/24/24 17:45 Ceftriaxone Sodium 50 ml @ 100 mls/hr DAILY@09 IV 08/25/24 09:00 09/03/24 09:10 100 MLS/HR Nitroglycerin 0.4 mg Q5MINP PRN SL 08/24/24 19:30 Albuterol 2.5 mg Q4HR NEB 08/25/24 02:00 09/03/24 18:09 2.5 MG Ipratropium [place] 0.5 mg Q4HR NEB 08/25/24 02:00 09/03/24 18:09 0.5 MG Albuterol 2.5 mg Q2HPRN PRN NEB 08/24/24 23:15 08/24/24 23:19 2.5 MG Diphenhydramine HCl 25 mg Q6HP PRN IV 08/27/24 14:00 Pantoprazole Sodium 40 mg DAILY@0600 PO 08/28/24 06:00 09/03/24 05:46 40 MG Lidocaine 2 patch DAILY TOP 08/29/24 14:30 09/03/24 09:21 2 PATCH Docusate Sodium 100 mg BIDPRN PRN PO 08/30/24 13:15 09/01/24 09:11 100 MG Iron Sucrose 110 ml @ 110 mls/hr DAILY@1200 IV 09/01/24 12:00 09/04/24 12:59 09/03/24 14:48 110 MLS/HR Amiodarone HCl 200 mg Q12HR PO 09/02/24 22:00 09/03/24 09:21 200 MG Duloxetine HCl 30 mg BID PO 09/02/24 22:00 09/03/24 09:10 30 MG Gabapentin 100 mg BID PO 09/02/24 22:00 09/03/24 09:11 100 MG Acetaminophen/ Hydrocodone Bitart 1 tab Q4HP PRN PO 09/02/24 18:30 09/03/24 09:20 1 TAB Morphine Sulfate 1 mg Q4HP PRN IV 09/03/24 11:00 09/03/24 11:49 1 MG objective General: NAD, AAOX3 Chest: lung alvarenga clear to auscultation Heart: RRR, no murmur Abdomen: non-distended, no tenderness to palpation, +BS laboratory and microbiology Laboratory Tests 09/03/24 06:29 Test 09/03/24 06:29 Range/Units Serum Glucose 78 74-106 mg/dL Problems(with codes): (1) Chronic anemia (2) Ventral hernia (3) hypertension COPD (4) Hiatal hernia with GERD and esophagitis (5) Degenerative joint disease of both hips (6) Abnormal finding on GI tract imaging Prognosis Plan Await final tumor markers Patient to be considered for possible cystoscopy rule out any bladder cancer; UTI I will be standing by to do a colonoscopy if I can convince the patient, today also she was refusing ;CEA is normal at 1.48 prognosis remains guarded and condition poor PET scan we will have to be arranged as an outpatient along with the oncology consultation Dietary Evaluation Review Comments: 1. [facility]-60, Cardiac mechanical soft diet 2. explore iron load, consider iron and vitamin supplementation if needed. 3. Monitor PO intake to meet 75% of her needs Expected Outcomes/Goals: Gradual wt loss, controlled DM, Plan discussed with: Patient Capillary Refill: < 3 seconds CC Plasma Assessment Blood Product Administration S: [id number] BRENT DEJESUS MD Sep 03, 2024 21:21
[2024-09-04] VITALS (18 sets, daily range): BP systolic 137–152; BP diastolic 49–66; PULSE 63–75; RESP 18; TEMP 97.4–98.1; O2SAT 96–100
[2024-09-04 06:15] LABS: Basophils # (auto) 0.1 10 ^3/uL (0-0.2); Basophils % (auto) 0.8 % (0.0-2.0); Eosinophils # (auto) 0.2 10 ^3/uL (0-0.8); Mean Corpuscular Hemoglobin 30.1 pg (28.0-32.0)
[2024-09-04 06:26] LABS: Eosinophils % (auto) 2.7 % (0.0-7.0); Hematocrit 29.5 % (36.0-46.0); Hemoglobin 9.8 g/dL (12.2-16.2); Lymphocytes # (auto) 0.7 10 ^3/uL (0.4-5.4); Lymphocytes % (auto) 7.9 % (10.0-50.0); Mean Corpuscular Hgb Conc. 33.2 g/dL (32.0-36.0); Mean Corpuscular Volume 90.7 fL (80.0-100.0); Monocytes # (auto) 0.8 10 ^3/uL (0-1.3); Monocytes % (auto) 9.1 % (0.0-12.0); Neutrophils % (auto) 79.5 % (37.0-80.0); Nucleated Red Blood Cells % 0.3 %; Platelet Count (auto) 358 10^3/uL (140-450); Red Blood Cells 3.25 10^6/uL (4.0-5.20); Red Cell Distribution Width 15.9 % (11.8-14.3); White Blood Cell 8.8 10^3/uL (4.4-10.8)
[2024-09-04 06:54] LABS: Large Platelets FEW; Platelet Estimate Adequate
[2024-09-04 08:07] LABS: Cancer Antigen (CA) 125 13.3 U/mL (0.0-38.1); Carbohydrate Antigen 19-9 13 U/mL (0-35)
[2024-09-04 09:54] LABS: Chloride 106 mmol/L (98-107); Sodium 140 mmol/L (136-145)
[2024-09-04 09:55] LABS: Anion Gap 7 (5-15); Carbon Dioxide 27 mmol/L (20-31)
[2024-09-04 10:00] LABS: BUN/Creatinine Ratio 17.2 (10.0-20.0); Blood Urea Nitrogen 11 mg/dL (9-23)
[2024-09-04 10:03] LABS: Calcium 10.7 mg/dL (8.7-10.4); Glucose 66 mg/dL (74-106)
--- NOTE | 2024-09-04 16:05 | DVHPN2 ---
Progress Note - Dictate Date Seen: Sep 04, 2024 Medical Necessity Reason Pt with a Central, PICC or Fol: Yes The following are medically ne: Oswald Catheter Reason for oswald catheter: Strict I&O Subjective Patient seen at bedside, feels better with less pain She is sitting up in bed tolerating a diet. Patient's hemoglobin upto 9.8 S/P 2 units PRBC, no active bleeding, stool for occult blood negative Bone scan was negative, patient has osteolytic versus osteoblastic lesions and they recommended a PET scan Lower spine and pelvic distribution of osteolytic lesions suspicious for ? possible uterine or bladder primary source Tumor markers at this time have been negative or within normal range vital signs Vital Sign Date Time Temp Pulse Resp B/P (MAP) Pulse Ox O2 Delivery O2 Flow Rate FiO2 09/04/24 15:41 66 17 130/57 09/04/24 14:08 100 09/04/24 14:01 Nasal Cannula 2.0 09/04/24 14:01 28 09/04/24 13:00 98.1 98.1 Total Intake and Output 09/03/24 09/03/24 09/04/24 15:00 23:00 07:00 Intake Total 50 ml 400 ml 220 ml Output Total 650 ml 650 ml Balance 50 ml -250 ml -430 ml medications Current Medications Medications Dose Ordered Sig/Leonor Route Start Time Stop Time Status Last Admin Dose Admin Levothyroxine Sodium 75 mcg QAM@0600 PO 08/25/24 06:00 09/04/24 05:29 75 MCG Dextrose 50 ml UD PRN IV 08/24/24 17:45 Sodium Chloride 10 ml Q8HR IV 08/24/24 22:00 09/04/24 14:39 10 ML Ondansetron HCl 4 mg Q4HP PRN IV 08/24/24 17:45 Acetaminophen 650 mg Q6HP PRN PO 08/24/24 17:45 Ceftriaxone Sodium 50 ml @ 100 mls/hr DAILY@09 IV 08/25/24 09:00 09/04/24 09:07 100 MLS/HR Nitroglycerin 0.4 mg Q5MINP PRN SL 08/24/24 19:30 Albuterol 2.5 mg Q4HR NEB 08/25/24 02:00 09/04/24 14:00 2.5 [address] I[address]at[address] [employer] [place] 0.5 mg Q4HR NEB 08/25/24 02:00 09/04/24 14:00 0.5 MG Albuterol 2.5 mg Q2HPRN PRN NEB 08/24/24 23:15 08/24/24 23:19 2.5 MG Diphenhydramine HCl 25 mg Q6HP PRN IV 08/27/24 14:00 Pantoprazole Sodium 40 mg DAILY@0600 PO 08/28/24 06:00 09/04/24 05:29 40 MG Lidocaine 2 patch DAILY TOP 08/29/24 14:30 09/04/24 09:08 2 PATCH Docusate Sodium 100 mg BIDPRN PRN PO 08/30/24 13:15 09/01/24 09:11 100 MG Amiodarone HCl 200 mg Q12HR PO 09/02/24 22:00 09/04/24 09:07 200 MG Duloxetine HCl 30 mg BID PO 09/02/24 22:00 09/04/24 09:07 30 MG Gabapentin 100 mg BID PO 09/02/24 22:00 09/04/24 09:07 100 MG Acetaminophen/ Hydrocodone Bitart 1 tab Q4HP PRN PO 09/02/24 18:30 09/04/24 13:03 1 TAB Morphine Sulfate 1 mg Q4HP PRN IV 09/03/24 11:00 09/04/24 15:41 1 MG objective General: NAD, AAOX3 Chest: lung alvarenga clear to auscultation Heart: RRR, no murmur Abdomen: non-distended, no tenderness to palpation, +BS laboratory and microbiology Laboratory Tests 09/04/24 05:36 Test 09/04/24 05:36 Range/Units Serum Glucose 66 L 74-106 mg/dL Problems(with codes): (1) Chronic anemia (2) Accelerated hypertension (3) hypertension COPD (4) Abnormal finding on GI tract imaging (5) Degenerative joint disease of both hips (6) Hiatal hernia with GERD and esophagitis (7) UTI due to Klebsiella species Prognosis Plan Continue IV antibiotics for her Klebsiella UTI Continue supportive care and physical therapy Complete IV iron infusions I again discuss the possibility of a colonoscopy with the patient but she is still refusing ; CEA normal and stool for occult blood negative I will re-evaluate her for possible colonoscopy on Saturday if she is agreeable Otherwise patient can be discharged for outpatient oncology consultation and possible PET scan Dietary Evaluation Review Comments: 1. [facility]-60, Cardiac mechanical soft diet 2. explore iron load, consider iron and vitamin supplementation if needed. 3. Monitor PO intake to meet 75% of her needs Expected Outcomes/Goals: Gradual wt loss, controlled DM, Plan discussed with: Patient Capillary Refill: < 3 seconds CC Plasma Assessment Blood Product Administration S: [id number] BRENT DEJESUS MD Sep 04, 2024 16:05
--- NOTE | 2024-09-04 18:15 | DVHPN2 ---
Subjective In bed feeling well and feels weak. Reviewed: H&P, Labs Changes from previous H/P or p: No Changes Eyes: No Pain, No Vision change, No Conjunctivae inflammation, No Eyelid inflammation, No Other, No Redness ENT: No Ear pain, No Ear discharge, No Nose pain, No Nose discharge, No Nose congestion, No Mouth pain, No Mouth swelling, No Throat pain, No Throat swelling, No Other Cardiovascular: No Chest Pain, No Palpitations, No Orthopnea, No Paroxysmal Noc. Dyspnea, No Edema, No Lt Headedness, No Other Respiratory: No Cough, No Dry, No Shortness of breath, No SOB with excertion, No Wheezing, No Hemoptysis, No Pleuritic Pain, No Sputum, No Other Gastrointestinal: No Nausea, No Vomiting, No Abdominal Pain, No Diarrhea, No Constipation, No Melena, No Hematochezia, No Other Genitourinary: No Dysuria, No Frequency, No Incontinence, No Hematuria, No Retention, No Other Musculoskeletal: other (Unable to walk for three weeks); No neck pain, No shoulder pain, No arm pain, No back pain, No hand pain, No leg pain, No foot pain Skin: No Rash, No Lesions, No Jaundice, No Bruising, No Other Objective Vitals Vital Signs Date Time Temp Pulse Resp B/P (MAP) Pulse Ox O2 Delivery O2 Flow Rate FiO2 09/04/24 17:03 97.9 64 18 147/60 (89) 100 97.9 09/04/24 14:01 Nasal Cannula 2.0 09/04/24 14:01 28 Intake/Output Intake and Output 09/04/24 07:00 Intake Total 670 ml Output Total 1300 ml Balance -630 ml Intake Oral 620 ml IV Total 50 ml Output Urine Total 1300 ml # Bowel Movements 4 General Appearance: Alert, Oriented X3 Lungs: Clear to auscultation Cardiovascular: Regular rate, Normal S1, Normal S2 Abdomen: Normal bowel sounds Medications Current Medications Medications Dose Ordered Sig/Leonor Route Start Time Stop Time Status Last Admin Dose Admin Levothyroxine Sodium 75 mcg QAM@0600 PO 08/25/24 06:00 09/04/24 05:29 75 MCG Dextrose 50 ml UD PRN IV 08/24/24 17:45 Sodium Chloride 10 ml Q8HR IV 08/24/24 22:00 09/04/24 14:39 10 ML Ondansetron HCl 4 mg Q4HP PRN IV 08/24/24 17:45 Acetaminophen 650 mg Q6HP PRN PO 08/24/24 17:45 Ceftriaxone Sodium 50 ml @ 100 mls/hr DAILY@09 IV 08/25/24 09:00 09/04/24 09:07 100 MLS/HR Nitroglycerin 0.4 mg Q5MINP PRN SL 08/24/24 19:30 Albuterol 2.5 mg Q4HR NEB 08/25/24 02:00 09/04/24 14:00 2.5 MG Ipratropium [place] 0.5 mg Q4HR NEB 08/25/24 02:00 09/04/24 14:00 0.5 MG Albuterol 2.5 mg Q2HPRN PRN NEB 08/24/24 23:15 08/24/24 23:19 2.5 MG Diphenhydramine HCl 25 mg Q6HP PRN IV 08/27/24 14:00 Pantoprazole Sodium 40 mg DAILY@0600 PO 08/28/24 06:00 09/04/24 05:29 40 MG Lidocaine 2 patch DAILY TOP 08/29/24 14:30 09/04/24 09:08 2 PATCH Docusate Sodium 100 mg BIDPRN PRN PO 08/30/24 13:15 09/01/24 09:11 100 MG Amiodarone HCl 200 mg Q12HR PO 09/02/24 22:00 09/04/24 09:07 200 MG Duloxetine HCl 30 mg BID PO 09/02/24 22:00 09/04/24 09:07 30 MG Gabapentin 100 mg BID PO 09/02/24 22:00 09/04/24 09:07 100 MG Acetaminophen/ Hydrocodone Bitart 1 tab Q4HP PRN PO 09/02/24 18:30 09/04/24 13:03 1 TAB Morphine Sulfate 1 mg Q4HP PRN IV 09/03/24 11:00 09/04/24 15:41 1 MG Laboratory Results Laboratory Tests 09/04/24 05:36 Chemistry Test 09/04/24 05:36 Calcium Level 10.7 mg/dL (8.7-10.4) H Urinalysis Test 08/24/24 15:30 08/25/24 00:00 08/25/24 10:03 Urine Mucus Few (None Seen) Urine Protein/Creatinine Ratio 0.57 Urine Total Protein 26.7 mg/dL (1-14) H Urine Color Colorless (Yellow) Urine Clarity Turbid (Clear) H Urine pH 6.0 (5.0-9.0) Urine Specific [place] 1.015 (1.001-1.035) Urine Protein Negative (Negative) Urine Ketones Negative (Negative) Urine Blood Trace /uL (Negative) H Urine Nitrite Negative (Negative) Urine Bilirubin Negative (Negative) Urine Urobilinogen Normal mg/dL (Negative) Urine Leukocyte Esterase 3+ /uL (Negative) Urine RBC 10 /hpf (0 - 4) Urine Microscopic WBC 554 /HPF (0-5) H Urine Squamous Epithelial Cells Few /hpf (<5) Urine Bacteria None seen /hpf (None Seen) Urine Osmolality 489 mOsm/kg Urine Creatinine 46.58 mg/dL (30.0-125.0) Urine Sodium 72 mmol/L (40-220) Urine Glucose Normal mg/dL (Normal) Microbiology Microbiology Date/Time Source Procedure Growth Status 08/24/24 15:30 Voided Urine Urine Culture - Final Klebsiella pneumoniae Complete Assessment/Plan Assessment/Plan 1. anemia s/p transfusion; ppi Had EGD with esophagitis and hiatal hernia Per GI will plan for outpatient colonoscopy Will start iron tablets Hb slowly dropping everyday. GI considering in Colonoscopy Urology possible cystoscopy 2. h/o Sick sinus syndrome, status post pacemaker placement. 3. Hypothyroidism. 4. History of deep venous thrombosis. 5. History of ventral hernia. 6. Chronic obstructive pulmonary disease with chronic respiratory failure. 7. Obesity. 8. Hypertension 9. uti with kleb: iv rocephin 10. hypernatremia: free water resolved 11. acute renal failure ?vasomotor nephropathy Plan discussed with: Patient Date of Service: Sep 04, 2024 Billing Provider: MARGARITO NDIAYE MD Common Visit Codes: [id number] INP/OBS CARE(HIGH) MARGARITO NDIAYE MD Sep 04, 2024 18:15
[2024-09-05] VITALS (18 sets, daily range): BP systolic 135–165; BP diastolic 51–69; PULSE 62–69; RESP 16–20; TEMP 94.8–98.1; O2SAT 96–100
--- NOTE | 2024-09-05 12:25 | DVH ---
LEFT Upper Extremity Venous Duplex Clinical History: IV INFILTRATED Comparison: None Findings: Duplex Doppler evaluation of the venous system of the LEFT lower neck and upper extremity including c olor Doppler and spectral/pulsed waveform analysis was performed. The internal jugular vein demonstrates appropriate compressibility and waveform variability. The subclavian vein is patent on color Doppler evaluation without intraluminal thrombus and demonstra lila waveform variability. The visualized portion of the brachiocephalic vein is patent on color Doppler evaluation without intr aluminal thrombus and demonstrates waveform variability. Thrombus in the axillary vein and brachial vein. The basilic vein demonstrates appropriate compressibility and patency on Doppler evaluation. The cephalic vein demonstrates appropriate compressibility and patency on Doppler evaluation. Impression: DVT left upper extremity. Critical Result: DVT Findings discussed with MYRTLE iyer at 09/05/2024 12:22 PM, and acknowledged receipt and understanding o f the findings. .. If clinical concern/symptoms persist or worsen, short-interval follow-up study is suggested.
[2024-09-05] MEDS: hydrALAZINE HCL 20 MG/ML VL IV PRN (14:18)
--- NOTE | 2024-09-05 14:37 | DVHPN2 ---
Subjective In bed feeling well and feels weak. Reviewed: H&P, Labs Changes from previous H/P or p: No Changes Eyes: No Pain, No Vision change, No Conjunctivae inflammation, No Eyelid inflammation, No Other, No Redness ENT: No Ear pain, No Ear discharge, No Nose pain, No Nose discharge, No Nose congestion, No Mouth pain, No Mouth swelling, No Throat pain, No Throat swelling, No Other Cardiovascular: No Chest Pain, No Palpitations, No Orthopnea, No Paroxysmal Noc. Dyspnea, No Edema, No Lt Headedness, No Other Respiratory: No Cough, No Dry, No Shortness of breath, No SOB with excertion, No Wheezing, No Hemoptysis, No Pleuritic Pain, No Sputum, No Other Gastrointestinal: No Nausea, No Vomiting, No Abdominal Pain, No Diarrhea, No Constipation, No Melena, No Hematochezia, No Other Genitourinary: No Dysuria, No Frequency, No Incontinence, No Hematuria, No Retention, No Other Musculoskeletal: other (Unable to walk for three weeks); No neck pain, No shoulder pain, No arm pain, No back pain, No hand pain, No leg pain, No foot pain Skin: No Rash, No Lesions, No Jaundice, No Bruising, No Other Objective Vitals Vital Signs Date Time Temp Pulse Resp B/P (MAP) Pulse Ox O2 Delivery O2 Flow Rate FiO2 09/05/24 14:18 166/69 09/05/24 14:17 69 17 09/05/24 14:10 100 09/05/24 13:00 97.4 97.4 09/05/24 10:00 Nasal Cannula 1.0 09/05/24 10:00 28 Intake/Output Intake and Output 09/05/24 07:00 Intake Total 808 ml Output Total 675 ml Balance 133 ml Intake Oral 758 ml IV Total 50 ml Output Urine Total 675 ml General Appearance: Alert, Oriented X3 Lungs: Clear to auscultation Cardiovascular: Regular rate, Normal S1, Normal S2 Abdomen: Normal bowel sounds Medications Current Medications Medications Dose Ordered Sig/Leonor Route Start Time Stop Time Status Last Admin Dose Admin Levothyroxine Sodium 75 mcg QAM@0600 PO 08/25/24 06:00 09/05/24 05:34 75 MCG Dextrose 50 ml UD PRN IV 08/24/24 17:45 Sodium Chloride 10 ml Q8HR IV 08/24/24 22:00 09/05/24 14:17 10 ML Ondansetron HCl 4 mg Q4HP PRN IV 08/24/24 17:45 Acetaminophen 650 mg Q6HP PRN PO 08/24/24 17:45 Nitroglycerin 0.4 mg Q5MINP PRN SL 08/24/24 19:30 Albuterol 2.5 mg Q4HR NEB 08/25/24 02:00 09/05/24 14:00 2.5 MG Ipratropium [place] 0.5 mg Q4HR NEB 08/25/24 02:00 09/05/24 14:00 0.5 MG Albuterol 2.5 mg Q2HPRN PRN NEB 08/24/24 23:15 08/24/24 23:19 2.5 MG Diphenhydramine HCl 25 mg Q6HP PRN IV 08/27/24 14:00 Pantoprazole Sodium 40 mg DAILY@0600 PO 08/28/24 06:00 09/05/24 05:34 40 MG Lidocaine 2 patch DAILY TOP 08/29/24 14:30 09/05/24 08:44 2 PATCH Docusate Sodium 100 mg BIDPRN PRN PO 08/30/24 13:15 09/01/24 09:11 100 MG Amiodarone HCl 200 mg Q12HR PO 09/02/24 22:00 09/05/24 08:44 200 MG Duloxetine HCl 30 mg BID PO 09/02/24 22:00 09/05/24 08:44 30 MG Gabapentin 100 mg BID PO 09/02/24 22:00 09/05/24 08:45 100 MG Acetaminophen/ Hydrocodone Bitart 1 tab Q4HP PRN PO 09/02/24 18:30 09/05/24 09:10 1 TAB Morphine Sulfate 1 mg Q4HP PRN IV 09/03/24 11:00 09/05/24 14:17 1 MG Hydralazine HCl 10 mg Q4HR PRN IV 09/05/24 12:30 09/05/24 14:18 10 MG Laboratory Results Laboratory Tests 09/04/24 05:36 Urinalysis Test 08/24/24 15:30 08/25/24 00:00 08/25/24 10:03 Urine Mucus Few (None Seen) Urine Protein/Creatinine Ratio 0.57 Urine Total Protein 26.7 mg/dL (1-14) H Urine Color Colorless (Yellow) Urine Clarity Turbid (Clear) H Urine pH 6.0 (5.0-9.0) Urine Specific [place] 1.015 (1.001-1.035) Urine Protein Negative (Negative) Urine Ketones Negative (Negative) Urine Blood Trace /uL (Negative) H Urine Nitrite Negative (Negative) Urine Bilirubin Negative (Negative) Urine Urobilinogen Normal mg/dL (Negative) Urine Leukocyte Esterase 3+ /uL (Negative) Urine RBC 10 /hpf (0 - 4) Urine Microscopic WBC 554 /HPF (0-5) H Urine Squamous Epithelial Cells Few /hpf (<5) Urine Bacteria None seen /hpf (None Seen) Urine Osmolality 489 mOsm/kg Urine Creatinine 46.58 mg/dL (30.0-125.0) Urine Sodium 72 mmol/L (40-220) Urine Glucose Normal mg/dL (Normal) Microbiology Microbiology Date/Time Source Procedure Growth Status 08/24/24 15:30 Voided Urine Urine Culture - Final Klebsiella pneumoniae Complete Assessment/Plan Assessment/Plan 1. anemia s/p transfusion; ppi Had EGD with esophagitis and hiatal hernia Per GI will plan for outpatient colonoscopy Will start iron tablets Hb slowly dropping everyday. GI considering in Colonoscopy Urology possible cystoscopy 2. h/o Sick sinus syndrome, status post pacemaker placement. 3. Hypothyroidism. 4. History of deep venous thrombosis. 5. History of ventral hernia. 6. Chronic obstructive pulmonary disease with chronic respiratory failure. 7. Obesity. 8. Hypertension 9. uti with kleb: iv rocephin 10. hypernatremia: free water resolved 11. acute renal failure ?vasomotor nephropathy Plan discussed with: Patient My Orders Orders - MARGARITO NDIAYE MD Procedure Category Date Status Time Lt Upper Dvt US 09/05/24 Resulted 10:25 Hydralazine Injection PHA 09/05/24 In Process (Apresoline Inject 12:30 Date of Service: Sep 05, 2024 Billing Provider: MARGARITO NDIAYE MD Common Visit Codes: [id number] INP/OBS CARE(HIGH) MARGARITO NDIAYE MD Sep 05, 2024 14:37
[2024-09-06] VITALS (20 sets, daily range): BP systolic 101–171; BP diastolic 53–83; PULSE 65–81; RESP 14–20; TEMP 97.1–98.1; O2SAT 93–100
--- NOTE | 2024-09-06 17:32 | DVHPN2 ---
Subjective In bed feeling well and feels weak. Reviewed: H&P, Labs Changes from previous H/P or p: No Changes Eyes: No Pain, No Vision change, No Conjunctivae inflammation, No Eyelid inflammation, No Other, No Redness ENT: No Ear pain, No Ear discharge, No Nose pain, No Nose discharge, No Nose congestion, No Mouth pain, No Mouth swelling, No Throat pain, No Throat swelling, No Other Cardiovascular: No Chest Pain, No Palpitations, No Orthopnea, No Paroxysmal Noc. Dyspnea, No Edema, No Lt Headedness, No Other Respiratory: No Cough, No Dry, No Shortness of breath, No SOB with excertion, No Wheezing, No Hemoptysis, No Pleuritic Pain, No Sputum, No Other Gastrointestinal: No Nausea, No Vomiting, No Abdominal Pain, No Diarrhea, No Constipation, No Melena, No Hematochezia, No Other Genitourinary: No Dysuria, No Frequency, No Incontinence, No Hematuria, No Retention, No Other Musculoskeletal: other (Unable to walk for three weeks); No neck pain, No shoulder pain, No arm pain, No back pain, No hand pain, No leg pain, No foot pain Skin: No Rash, No Lesions, No Jaundice, No Bruising, No Other Objective Vitals Vital Signs Date Time Temp Pulse Resp B/P (MAP) Pulse Ox O2 Delivery O2 Flow Rate FiO2 09/06/24 16:38 98.0 65 20 127/59 (81) 96 98.0 09/06/24 15:02 Nasal Cannula* 1 24 Intake/Output Intake and Output 09/06/24 07:00 Intake Total 850 ml Output Total 600 ml Balance 250 ml Intake Oral 850 ml Output Urine Total 600 ml General Appearance: Alert, Oriented X3 Lungs: Clear to auscultation Cardiovascular: Regular rate, Normal S1, Normal S2 Abdomen: Normal bowel sounds Medications Current Medications Medications Dose Ordered Sig/Leonor Route Start Time Stop Time Status Last Admin Dose Admin Levothyroxine Sodium 75 mcg QAM@0600 PO 08/25/24 06:00 09/06/24 05:02 75 MCG Dextrose 50 ml UD PRN IV 08/24/24 17:45 Sodium Chloride 10 ml Q8HR IV 08/24/24 22:00 09/06/24 15:05 10 ML Ondansetron HCl 4 mg Q4HP PRN IV 08/24/24 17:45 Acetaminophen 650 mg Q6HP PRN PO 08/24/24 17:45 Nitroglycerin 0.4 mg Q5MINP PRN SL 08/24/24 19:30 Albuterol 2.5 mg Q4HR NEB 08/25/24 02:00 09/06/24 15:02 2.5 MG Ipratropium [place] 0.5 mg Q4HR NEB 08/25/24 02:00 09/06/24 15:02 0.5 MG Albuterol 2.5 mg Q2HPRN PRN NEB 08/24/24 23:15 08/24/24 23:19 2.5 MG Diphenhydramine HCl 25 mg Q6HP PRN IV 08/27/24 14:00 Pantoprazole Sodium 40 mg DAILY@0600 PO 08/28/24 06:00 09/06/24 05:02 40 MG Lidocaine 2 patch DAILY TOP 08/29/24 14:30 09/06/24 09:02 2 PATCH Docusate Sodium 100 mg BIDPRN PRN PO 08/30/24 13:15 09/01/24 09:11 100 MG Amiodarone HCl 200 mg Q12HR PO 09/02/24 22:00 09/06/24 08:58 200 MG Duloxetine HCl 30 mg BID PO 09/02/24 22:00 09/06/24 08:58 30 MG Gabapentin 100 mg BID PO 09/02/24 22:00 09/06/24 09:02 100 MG Acetaminophen/ Hydrocodone Bitart 1 tab Q4HP PRN PO 09/02/24 18:30 09/06/24 09:24 1 TAB Morphine Sulfate 1 mg Q4HP PRN IV 09/03/24 11:00 09/06/24 08:37 1 MG Hydralazine HCl 10 mg Q4HR PRN IV 09/05/24 12:30 09/06/24 05:03 10 MG Laboratory Results Laboratory Tests 09/04/24 05:36 Urinalysis Test 08/24/24 15:30 08/25/24 00:00 08/25/24 10:03 Urine Mucus Few (None Seen) Urine Protein/Creatinine Ratio 0.57 Urine Total Protein 26.7 mg/dL (1-14) H Urine Color Colorless (Yellow) Urine Clarity Turbid (Clear) H Urine pH 6.0 (5.0-9.0) Urine Specific [place] 1.015 (1.001-1.035) Urine Protein Negative (Negative) Urine Ketones Negative (Negative) Urine Blood Trace /uL (Negative) H Urine Nitrite Negative (Negative) Urine Bilirubin Negative (Negative) Urine Urobilinogen Normal mg/dL (Negative) Urine Leukocyte Esterase 3+ /uL (Negative) Urine RBC 10 /hpf (0 - 4) Urine Microscopic WBC 554 /HPF (0-5) H Urine Squamous Epithelial Cells Few /hpf (<5) Urine Bacteria None seen /hpf (None Seen) Urine Osmolality 489 mOsm/kg Urine Creatinine 46.58 mg/dL (30.0-125.0) Urine Sodium 72 mmol/L (40-220) Urine Glucose Normal mg/dL (Normal) Microbiology Microbiology Date/Time Source Procedure Growth Status 08/24/24 15:30 Voided Urine Urine Culture - Final Klebsiella pneumoniae Complete Assessment/Plan Assessment/Plan #anemia s/p transfusion; ppi Had EGD with esophagitis and hiatal hernia Per GI will plan for outpatient colonoscopy Continue IV Iron GI considering in Colonoscopy Urology possible cystoscopy #New upper extremity DVT Thrombus in the axillary vein and brachial vein. Will start lovenox today 2. h/o Sick sinus syndrome, status post pacemaker placement. 3. Hypothyroidism. 4. History of deep venous thrombosis. 5. History of ventral hernia. 6. Chronic obstructive pulmonary disease with chronic respiratory failure. 7. Obesity. 8. Hypertension 9. uti with kleb: iv rocephin 10. hypernatremia: free water resolved 11. acute renal failure ?vasomotor nephropathy Plan discussed with: Patient My Orders Orders - MARGARITO NDIAYE MD Procedure Category Date Status Time Cleanse Wound With MARGI 09/06/24 In Process Mild Soap A 11:13 Date of Service: Sep 06, 2024 Billing Provider: MARGARITO NDIAYE MD Common Visit Codes: [id number] INP/OBS CARE(HIGH) MARGARITO NDIAYE MD Sep 06, 2024 17:32
[2024-09-06 18:00] LABS: Basophils # (auto) 0.1 10 ^3/uL (0-0.2); Basophils % (auto) 0.7 % (0.0-2.0); Eosinophils # (auto) 0.2 10 ^3/uL (0-0.8); Eosinophils % (auto) 2.6 % (0.0-7.0); Hematocrit 32.1 % (36.0-46.0); Hemoglobin 10.4 g/dL (12.2-16.2); Lymphocytes # (auto) 0.7 10 ^3/uL (0.4-5.4); Lymphocytes % (auto) 8.8 % (10.0-50.0); Mean Corpuscular Hemoglobin 30.1 pg (28.0-32.0); Mean Corpuscular Hgb Conc. 32.5 g/dL (32.0-36.0); Mean Corpuscular Volume 92.7 fL (80.0-100.0); Monocytes # (auto) 0.8 10 ^3/uL (0-1.3); Monocytes % (auto) 10.2 % (0.0-12.0); Neutrophils # (auto) 5.9 10 ^3/uL (1.6-8.6); Neutrophils % (auto) 77.7 % (37.0-80.0); Nucleated Red Blood Cells % 0.1 %; Platelet Count (auto) 364 10^3/uL (140-450); Red Blood Cells 3.46 10^6/uL (4.0-5.20); Red Cell Distribution Width 16.4 % (11.8-14.3); White Blood Cell 7.6 10^3/uL (4.4-10.8)
[2024-09-06 18:01] LABS: Urine Bacteria FEW /hpf (None Seen); Urine Blood TRACE /uL (Negative); Urine Clarity Turbid (Clear); Urine Color Yellow (Yellow); Urine Mucus FEW (None Seen); Urine Protein, UAD TRACE (Negative); Urine Specific Gravity 1.021 (1.001-1.035); Urine Squamous Epithelial Cell FEW /hpf (<5); Urine Urobilinogen Normal (Negative); Urine WBC 5 /HPF (0-5); Urine pH 6.5 (5.0-9.0)
[2024-09-06] MEDS: ENOXAPARIN SOD 80 MG/0.8ML SYRINGE SC SCH (21:25)
[2024-09-07] VITALS (19 sets, daily range): BP systolic 123–156; BP diastolic 55–81; PULSE 57–77; RESP 12–20; TEMP 97.1–98.3; O2SAT 96–100
[2024-09-07 07:22] LABS: Basophils # (auto) 0 10 ^3/uL (0-0.2); Basophils % (auto) 0.5 % (0.0-2.0); Eosinophils # (auto) 0.1 10 ^3/uL (0-0.8); Eosinophils % (auto) 1.5 % (0.0-7.0); Hematocrit 29.3 % (36.0-46.0); Hemoglobin 9.7 g/dL (12.2-16.2); Lymphocytes # (auto) 0.7 10 ^3/uL (0.4-5.4); Lymphocytes % (auto) 9.5 % (10.0-50.0); Mean Corpuscular Hemoglobin 30.3 pg (28.0-32.0); Mean Corpuscular Volume 91.7 fL (80.0-100.0); Monocytes # (auto) 0.9 10 ^3/uL (0-1.3); Monocytes % (auto) 11.2 % (0.0-12.0); Neutrophils # (auto) 6.1 10 ^3/uL (1.6-8.6); Neutrophils % (auto) 77.3 % (37.0-80.0); Platelet Count (auto) 347 10^3/uL (140-450); Red Cell Distribution Width 16.1 % (11.8-14.3); White Blood Cell 7.9 10^3/uL (4.4-10.8)
[2024-09-07 07:56] LABS: Anion Gap 10 (5-15); Carbon Dioxide 26 mmol/L (20-31); Chloride 104 mmol/L (98-107); Sodium 140 mmol/L (136-145)
[2024-09-07 08:02] LABS: BUN/Creatinine Ratio 16.7 (10.0-20.0); Blood Urea Nitrogen 11 mg/dL (9-23); Glucose 74 mg/dL (74-106)
[2024-09-07 08:04] LABS: Calcium 10.7 mg/dL (8.7-10.4); Potassium 3.3 mmol/L (3.5-5.1)
--- NOTE | 2024-09-07 10:36 | DVHPN2 ---
Progress Note Date Seen: Sep 07, 2024 Medical Necessity Reason Pt with a Central, PICC or Fol: Yes The following are medically ne: Sowald Catheter Reason for oswald catheter: Strict I&O Subjective Patient reports: No new complaints Review of Systems: HEENT:Normal, CVS:Normal, RESPIRATORY:Normal, GI:Normal, :Normal, MSK:Normal, NEURO:Normal Objective vital signs Vital Sign Date Time Temp Pulse Resp B/P (MAP) Pulse Ox O2 Delivery O2 Flow Rate FiO2 09/07/24 10:27 66 14 97 09/07/24 10:27 Nasal Cannula 1.0 09/07/24 10:27 24 09/07/24 09:15 97.1 156/64 (94) 97.1 Total Intake and Output 09/06/24 09/06/24 09/07/24 15:00 23:00 07:00 Intake Total 850 ml 400 ml Output Total 800 ml 350 ml Balance 50 ml 50 ml medications Current Medications Medications Dose Ordered Sig/Leonor Route Start Time Stop Time Status Last Admin Dose Admin Levothyroxine Sodium 75 mcg QAM@0600 PO 08/25/24 06:00 09/07/24 05:55 75 MCG Dextrose 50 ml UD PRN IV 08/24/24 17:45 Sodium Chloride 10 ml Q8HR IV 08/24/24 22:00 09/07/24 05:55 10 ML Ondansetron HCl 4 mg Q4HP PRN IV 08/24/24 17:45 Acetaminophen 650 mg Q6HP PRN PO 08/24/24 17:45 Nitroglycerin 0.4 mg Q5MINP PRN SL 08/24/24 19:30 Albuterol 2.5 mg Q4HR NEB 08/25/24 02:00 09/07/24 10:27 2.5 MG Ipratropium [place] 0.5 mg Q4HR NEB 08/25/24 02:00 09/07/24 10:27 0.5 MG Albuterol 2.5 mg Q2HPRN PRN NEB 08/24/24 23:15 08/24/24 23:19 2.5 MG Diphenhydramine HCl 25 mg Q6HP PRN IV 08/27/24 14:00 Pantoprazole Sodium 40 mg DAILY@0600 PO 08/28/24 06:00 09/07/24 05:55 40 MG Lidocaine 2 patch DAILY TOP 08/29/24 14:30 09/06/24 09:02 2 PATCH Docusate Sodium 100 mg BIDPRN PRN PO 08/30/24 13:15 09/01/24 09:11 100 MG Amiodarone HCl 200 mg Q12HR PO 09/02/24 22:00 09/07/24 09:49 200 MG Duloxetine HCl 30 mg BID PO 09/02/24 22:00 09/07/24 09:48 30 MG Gabapentin 100 mg BID PO 09/02/24 22:00 09/07/24 09:49 100 MG Acetaminophen/ Hydrocodone Bitart 1 tab Q4HP PRN PO 09/02/24 18:30 09/07/24 09:50 1 TAB Morphine Sulfate 1 mg Q4HP PRN IV 09/03/24 11:00 09/06/24 08:37 1 MG Hydralazine HCl 10 mg Q4HR PRN IV 09/05/24 12:30 09/06/24 05:03 10 MG Enoxaparin Sodium 70 mg Q12HR SC 09/06/24 22:00 09/07/24 09:49 70 MG Examination: GENERAL:Normal, HEENT:Normal, NECK:Normal, LUNGS:Normal, CVS:Normal, ABDOMEN:Normal, MSK:Normal, SKIN:Normal, NEURO:Normal, :Normal laboratory and microbiology Laboratory Tests 09/07/24 06:05 Test 09/07/24 06:05 Range/Units Serum Glucose 74 74-106 mg/dL Microbiology Date/Time Source Procedure Growth Status 08/24/24 15:30 Voided Urine Urine Culture - Final Klebsiella pneumoniae Complete Problem List/Assessment/Plan Problem List/Assessment/Plan 1. anemia s/p transfusion; ppi, transfuse 2. h/o Sick sinus syndrome, status post pacemaker placement. 3. Hypothyroidism. 4. History of deep venous thrombosis/ left upper extremity: eliquis 5. History of ventral hernia. 6. Chronic obstructive pulmonary disease with chronic respiratory failure. 7. Obesity. 8. Hypertension 9. uti with kleb: iv rocephin 10. hypernatremia: free water 11. acute renal failure ?vasomotor nephropathy #12 severe left hip/pelvic pain/ djd left hip: bone scan- neg advance care planning-full code- time spent 19 mins Plan discussed with: Patient My Orders My Orders Orders - JOEY CASANOVA MD Procedure Category Date Status Time Apixaban (Eliquis) PHA 09/07/24 Transmitted 22:00 Potassium Er Tablet PHA 09/07/24 Transmitted (Klor-Con Tablet) 10:45 * Knife [employer] CONS 09/07/24 Transmitted Consult Dietary Evaluation Review Comments: 1. CCHO-60, Cardiac mechanical soft diet 2. explore iron load, consider iron and vitamin supplementation if needed. 3. Monitor PO intake to meet 75% of her needs Expected Outcomes/Goals: Gradual wt loss, controlled DM, Sepsis reassessment post fluid Capillary Refill: < 3 seconds Date of Service: Sep 07, 2024 Billing Provider: JOEY CASANOVA MD Common Visit Codes: [id number] INP/OBS CARE(HIGH) CC Plasma Assessment Blood Product Administration S: [id number] JOEY CASANOVA MD Sep 07, 2024 10:36
[2024-09-07] MEDS: POTASSIUM CHL 20 Meq TABLET PO ONE (11:02)
--- NOTE | 2024-09-07 20:07 | DVHPN2 ---
Progress Note - Dictate Date Seen: Sep 07, 2024 Medical Necessity Reason Pt with a Central, PICC or Fol: Yes The following are medically ne: Oswald Catheter Reason for oswald catheter: Strict I&O Subjective Patient seen at bedside, feels better with less pain She is sitting up in bed tolerating a diet. Patient's hemoglobin stable at 9.7 ;S/P 2 units PRBC, no active bleeding, stool for occult blood negative Bone scan was negative, patient has osteolytic versus osteoblastic lesions and they recommended a PET scan Lower spine and pelvic distribution of osteolytic lesions suspicious for ? Multiple myeloma;breast or renal malignancy Tumor markers at this time have been negative or within normal range; awaiting CA 27-29 vital signs Vital Sign Date Time Temp Pulse Resp B/P (MAP) Pulse Ox O2 Delivery O2 Flow Rate FiO2 09/07/24 18:13 66 14 100 09/07/24 18:07 Nasal Cannula* 1 24 09/07/24 17:30 97.1 152/60 (90) 97.1 Total Intake and Output 09/06/24 09/06/24 09/07/24 15:00 23:00 07:00 Intake Total 850 ml 400 ml Output Total 800 ml 350 ml Balance 50 ml 50 ml medications Current Medications Medications Dose Ordered Sig/Leonor Route Start Time Stop Time Status Last Admin Dose Admin Levothyroxine Sodium 75 mcg QAM@0600 PO 08/25/24 06:00 09/07/24 05:55 75 MCG Dextrose 50 ml UD PRN IV 08/24/24 17:45 Sodium Chloride 10 ml Q8HR IV 08/24/24 22:00 09/07/24 14:00 10 ML Ondansetron HCl 4 mg Q4HP PRN IV 08/24/24 17:45 Acetaminophen 650 mg Q6HP PRN PO 08/24/24 17:45 Nitroglycerin 0.4 mg Q5MINP PRN SL 08/24/24 19:30 Albuterol 2.5 mg Q4HR NEB 08/25/24 02:00 09/07/24 18:10 2.5 MG Ipratropium [place] 0.5 mg Q4HR NEB 08/25/24 02:00 09/07/24 18:10 0.5 MG Albuterol 2.5 mg Q2HPRN PRN NEB 08/24/24 23:15 08/24/24 23:19 2.5 MG Diphenhydramine HCl 25 mg Q6HP PRN IV 08/27/24 14:00 Pantoprazole Sodium 40 mg DAILY@0600 PO 08/28/24 06:00 09/07/24 05:55 40 MG Lidocaine 2 patch DAILY TOP 08/29/24 14:30 09/07/24 10:37 2 PATCH Docusate Sodium 100 mg BIDPRN PRN PO 08/30/24 13:15 09/01/24 09:11 100 MG Amiodarone HCl 200 mg Q12HR PO 09/02/24 22:00 09/07/24 09:49 200 MG Duloxetine HCl 30 mg BID PO 09/02/24 22:00 09/07/24 09:48 30 MG Gabapentin 100 mg BID PO 09/02/24 22:00 09/07/24 09:49 100 MG Acetaminophen/ Hydrocodone Bitart 1 tab Q4HP PRN PO 09/02/24 18:30 09/07/24 09:50 1 TAB Morphine Sulfate 1 mg Q4HP PRN IV 09/03/24 11:00 09/06/24 08:37 1 MG Hydralazine HCl 10 mg Q4HR PRN IV 09/05/24 12:30 09/06/24 05:03 10 MG Apixaban 5 mg BID PO 09/07/24 22:00 objective General: NAD, AAOX3 Chest: lung alvarenga clear to auscultation Heart: RRR, no murmur Abdomen: non-distended, no tenderness to palpation, +BS laboratory and microbiology Laboratory Tests 09/07/24 06:05 Test 09/07/24 06:05 Range/Units Serum Glucose 74 74-106 mg/dL Problems(with codes): (1) Obesity (2) Chronic anemia (3) Ventral hernia (4) hypertension COPD (5) Abnormal finding on GI tract imaging (6) Degenerative joint disease of both hips Prognosis Plan Continue IV antibiotics for her Klebsiella UTI Continue supportive care and physical therapy Complete IV iron infusions I again discuss the possibility of a colonoscopy with the patient but she is still refusing ; CEA normal and stool for occult blood negative Pt would like to go home; has caretakers at home Awaiting serum electrophoresis results color worker involved in discharge planning; outpatient oncology consultation and possible PET scan Dietary Evaluation Review Comments: 1. CCHO-60, Cardiac mechanical soft diet 2. explore iron load, consider iron and vitamin supplementation if needed. 3. Monitor PO intake to meet 75% of her needs Expected Outcomes/Goals: Gradual wt loss, controlled DM, Plan discussed with: Patient Capillary Refill: < 3 seconds CC Plasma Assessment Blood Product Administration S: [id number] BRENT DEJESUS MD Sep 07, 2024 20:07
[2024-09-07] MEDS: APIXABAN 5 MG TAB PO SCH (21:13)
[2024-09-08] VITALS (12 sets, daily range): BP systolic 145–158; BP diastolic 37–58; PULSE 65–71; RESP 14–18; TEMP 97.5–98.4; O2SAT 93–100
[2024-09-08 08:07] LABS: CA 27.29 14.9 U/mL (0.0-38.6)
--- NOTE | 2024-09-08 10:18 | DVHDS2 ---
Discharge Summary Date of Admission Aug 24, 2024 at 19:24 Date of Discharge: Sep 08, 2024 Labs/Diagnostic Data: Laboratory Results Test 09/07/24 06:05 09/06/24 15:00 09/04/24 05:36 09/03/24 06:29 White Blood Count 7.9 10^3/uL (4.4-10.8) Red Blood Count 3.20 10^6/uL (4.0-5.20) Hemoglobin 9.7 g/dL (12.2-16.2) Hematocrit 29.3 % (36.0-46.0) Mean Corpuscular Volume 91.7 fL (80.0-100.0) Mean Corpuscular Hemoglobin 30.3 pg (28.0-32.0) Mean Corpuscular Hemoglobin Concent 33.0 g/dL (32.0-36.0) Red Cell Distribution Width 16.1 % (11.8-14.3) Platelet Count 347 10^3/uL (140-450) Mean Platelet Volume 6.9 fL (6.9-10.8) Neutrophils (%) (Auto) 77.3 % (37.0-80.0) Lymphocytes (%) (Auto) 9.5 % (10.0-50.0) Monocytes (%) (Auto) 11.2 % (0.0-12.0) Eosinophils (%) (Auto) 1.5 % (0.0-7.0) Basophils (%) (Auto) 0.5 % (0.0-2.0) Neutrophils # (Auto) 6.1 10 ^3/uL (1.6-8.6) Lymphocytes # (Auto) 0.7 10 ^3/uL (0.4-5.4) Monocytes # (Auto) 0.9 10 ^3/uL (0-1.3) Eosinophils # (Auto) 0.1 10 ^3/uL (0-0.8) Basophils # (Auto) 0 10 ^3/uL (0-0.2) Nucleated Red Blood Cells 0.0 % Sodium Level 140 mmol/L (136-145) Potassium Level 3.3 mmol/L (3.5-5.1) Chloride Level 104 mmol/L (98-107) Carbon Dioxide Level 26 mmol/L (20-31) Anion Gap 10 (5-15) Blood Urea Nitrogen 11 mg/dL (9-23) Creatinine 0.66 mg/dL (0.550-1.02) Glomerular Filtration Rate Calc 90 mL/min (>90) BUN/Creatinine Ratio 16.7 (10.0-20.0) Serum Glucose 74 mg/dL (74-106) Calcium Level 10.7 mg/dL (8.7-10.4) Urine Color Yellow (Yellow) Urine Clarity Turbid (Clear) Urine pH 6.5 (5.0-9.0) Urine Specific [place] 1.021 (1.001-1.035) Urine Protein Trace (Negative) Urine Ketones Negative (Negative) Urine Blood Trace /uL (Negative) Urine Nitrite Negative (Negative) Urine Bilirubin Negative (Negative) Urine Urobilinogen Normal mg/dL (Negative) Urine Leukocyte Esterase Negative /uL (Negative) Urine RBC 11 /hpf (0 - 4) Urine Microscopic WBC 5 /HPF (0-5) Urine Squamous Epithelial Cells Few /hpf (<5) Urine Calcium Oxalate Crystals Few (None Seen) Urine Bacteria Few /hpf (None Seen) Urine Mucus Few (None Seen) Urine Glucose Normal mg/dL (Normal) Platelet Estimate Adequate Large Platelets Few Tumor Marker Alpha Fetoprotein 2.9 ng/mL (0.0-9.2) Carcinoembryonic Antigen 1.48 ng/mL (<=5.0) CA 19-9 Antigen 13 U/mL (0-35) CA 27.29 14.9 U/mL (0.0-38.6) CA 125 Antigen 13.3 U/mL (0.0-38.1) Test 09/01/24 09:04 08/30/24 14:12 08/29/24 18:36 08/29/24 11:41 Ferritin 257.2 ng/mL (10-291) Vitamin B12 Level 1748 pg/mL (211-911) Folic Acid 35.25 ng/mL (>5.38) Stool Occult Blood Negative (Negative) Stool Occult Blood Sample #3 (Negative) Iron Level 13 ug/dL (50-170) Total Iron Binding Capacity 254 ug/dL (250-425) Percent Iron Saturation 5.1 % (15-50) POC Glucose 122 mg/dl (70-106) Test 08/26/24 08:29 08/25/24 10:03 08/25/24 06:49 08/25/24 00:00 Prothrombin Time 10.4 sec (9.3-11.8) Prothrombin Time INR 0.98 (0.9-1.15) Activated Partial Thromboplast Time < 20.0 SEC (24.5-34.5) Urine Osmolality 489 mOsm/kg Urine Creatinine 46.58 mg/dL (30.0-125.0) Urine Sodium 72 mmol/L (40-220) Phosphorus Level 3.0 mg/dL (2.4-5.1) Magnesium Level 2.3 mg/dL (1.6-2.6) Total Bilirubin 0.5 mg/dL (0.2-1.0) Aspartate Amino Transferase (AST) 33 U/L (13-40) Alanine Aminotransferase (ALT) 21 U/L (7-40) Alkaline Phosphatase 69 U/L (46-116) Vitamin D 25-Hydroxy 40.6 ng/mL (30.0-100) Parathyroid Hormone (Intact) 72.7 pg/mL (18.4-80.1) Urine Protein/Creatinine Ratio 0.57 Urine Total Protein 26.7 mg/dL (1-14) Test 08/24/24 14:30 B-Type Natriuretic Peptide 39.99 pg/mL (0-100) Thyroid Stimulating Hormone (TSH) 0.79 uIU/mL (0.55-4.78) Other Laboratory Tests 09/07/24 06:05 Brief Hx & Hospital Course: see dictated note Condition at Discharge: Guarded Final Diagnosis/Problems List anemia Discharge Disposition: Home with Health Services Discharge Instruct/Medications Diet: Cardiac 2g Na,low cholest Activity: No Restrictions, As Tolerated Follow Up/Referral: fu with pcp in 1wk Medications: resume home meds Discharge Statement: "Patient was advised to return to the ER or call 911 if any headaches, dizziness, shortness of breath, chest pain, abdominal pain, bleeding, fevers, or worsening of medical condition. Patient was counseled about treatment plan, medications, possible side effects, patientverbalized understanding. All questions were answered to the best of my ability. This discharge took greater then 30 minutes in planning, reviewing documentation, counseling the patient, and discussing with other team members." ASSESSMENT ASSESSMENT Assessment anemia Date of Service: Sep 08, 2024 Billing Provider: JOEY CASANOVA MD Common Visit Codes: 15340-XYI/OBS DISCH DAY >30min JOEY CASANOVA MD Sep 08, 2024 10:18
--- NOTE | 2024-09-08 10:31 | DVHDS ---
DATE OF DISCHARGE: 09/08/2024 HISTORY OF PRESENT ILLNESS: The patient is a 78-year-old lady who was admitted with history of fatigue and weakness for 3 weeks prior to admission and has history of CHF, COPD, respiratory failure, hypertension, DVT, and PE. She is also status post pacemaker. HOSPITAL COURSE: The patient was noted to be anemic and was given a total of 2 units of blood. The patient was seen in GI consult by Dr. Suzanne Castro. The patient underwent upper endoscopy that showed evidence of hiatal hernia with minimal gastritis. She refused a colonoscopy. The patient had severe pain in the lower abdomen and hip. CT of abdomen and hip showed no bowel obstruction. The patient then had a pelvic CT that showed DJD of the left hip, with radial lucencies in the lower lumbar spine and the bony pelvis. A bone scan that was done showed no evidence of any metastasis. The patient had a Doppler of upper extremities that showed a DVT in the left upper extremity. The patient will now be discharged home to resume her home medications and follow up with her primary in 1 week. She also had a UTI secondary to Klebsiella pneumoniae. FINAL DIAGNOSES: * Anemia, status post transfusion, with gastritis. * History of sick sinus syndrome, with previous pacemaker. * Hypothyroidism. * DVT left upper extremity. * History of ventral hernia. * COPD with chronic respiratory failure. * Obesity. * Hypertension. * UTI due to Klebsiella pneumoniae. * Hyponatremia. * Acute renal failure, questionable vasomotor nephropathy. * Severe left hip DJD. The patient will also have home health for physical therapy and safety. Time spent in discharge planning and review of plan with the patient and nursing was 38 minutes. MD TWAN Bang/SHORTY TID: [id number] RECEIPT: [id number]
[2024-09-08 10:33] LABS: Basophils # (auto) 0 10 ^3/uL (0-0.2); Basophils % (auto) 0.6 % (0.0-2.0); Eosinophils # (auto) 0.2 10 ^3/uL (0-0.8); Eosinophils % (auto) 2.4 % (0.0-7.0); Hematocrit 30.2 % (36.0-46.0); Hemoglobin 9.9 g/dL (12.2-16.2); Lymphocytes # (auto) 1.1 10 ^3/uL (0.4-5.4); Mean Corpuscular Hemoglobin 30.1 pg (28.0-32.0); Mean Corpuscular Hgb Conc. 32.6 g/dL (32.0-36.0); Mean Corpuscular Volume 92.4 fL (80.0-100.0); Monocytes # (auto) 0.9 10 ^3/uL (0-1.3); Monocytes % (auto) 13.2 % (0.0-12.0); Neutrophils # (auto) 4.6 10 ^3/uL (1.6-8.6); Neutrophils % (auto) 67.8 % (37.0-80.0); Nucleated Red Blood Cells % 0.1 %; Platelet Count (auto) 345 10^3/uL (140-450); Red Blood Cells 3.27 10^6/uL (4.0-5.20); Red Cell Distribution Width 16.6 % (11.8-14.3); White Blood Cell 6.8 10^3/uL (4.4-10.8)
[2024-09-08 11:08] LABS: Anion Gap 9 (5-15); Carbon Dioxide 25 mmol/L (20-31)
[2024-09-08 11:10] LABS: Calcium 10.9 mg/dL (8.7-10.4); Chloride 107 mmol/L (98-107); Sodium 141 mmol/L (136-145)
[2024-09-08 11:13] LABS: Glucose 75 mg/dL (74-106)
[2024-09-08 11:14] LABS: BUN/Creatinine Ratio 18.6 (10.0-20.0); Blood Urea Nitrogen 13 mg/dL (9-23)
[2024-09-09 04:07] LABS: Albumin 1.9 g/dL (2.9-4.4); Alpha-1-Globulin 0.4 g/dL (0.0-0.4); Alpha-2-Globulin 0.8 g/dL (0.4-1.0); Gamma Globulin 0.8 g/dL (0.4-1.8); Globulin Total 3.1 g/dL (2.2-3.9)
== END 2024-09-08 16:30 | disposition home health service (06) | DRG 380 ==
LOC: ER 11:16 → OVERFLOW 19:24 → TELE-CENTR 22:21 → CENTRAL 08-28 03:04
PROVIDERS: ADMIT Internal Medicine; ATTEND Internal Medicine
PROC: 05HA33Z Insertion of Infusion Device into Left Brachial Vein, Percutaneous Approach (ICD-10-PCS; 2024-08-24)
PROC: B54NZZA Ultrasonography of Left Upper Extremity Veins, Guidance (ICD-10-PCS; 2024-08-24)
PROC: 0DB98ZX Excision of Duodenum, Via Natural or Artificial Opening Endoscopic, Diagnostic (ICD-10-PCS; 2024-08-26)
PROC: 0DB68ZX Excision of Stomach, Via Natural or Artificial Opening Endoscopic, Diagnostic (ICD-10-PCS; 2024-08-26)
PROC: 0DB48ZX Excision of Esophagogastric Junction, Via Natural or Artificial Opening Endoscopic, Diagnostic (ICD-10-PCS; 2024-08-26)
PROC: 30233N1 Transfusion of Nonautologous Red Blood Cells into Peripheral Vein, Percutaneous Approach (ICD-10-PCS; principal; 2024-09-01)
DX: K22.11 Ulcer of esophagus with bleeding (principal); N17.0 Acute kidney failure with tubular necrosis; E87.0 Hyperosmolality and hypernatremia; N39.0 Urinary tract infection, site not specified; J96.10 Chronic respiratory failure, unspecified whether with hypoxia or hypercapnia; E87.20 Acidosis, unspecified; I13.0 Hypertensive heart and chronic kidney disease with heart failure and stage 1 through stage 4 chronic kidney disease, or unspecified chronic kidney disease; E87.1 Hypo-osmolality and hyponatremia; D62 Acute posthemorrhagic anemia; K29.01 Acute gastritis with bleeding; E86.0 Dehydration; E03.9 Hypothyroidism, unspecified; K44.9 Diaphragmatic hernia without obstruction or gangrene; Z95.0 Presence of cardiac pacemaker; E66.9 Obesity, unspecified; E87.6 Hypokalemia; E11.22 Type 2 diabetes mellitus with diabetic chronic kidney disease; B96.1 Klebsiella pneumoniae [K. pneumoniae] as the cause of diseases classified elsewhere; I49.5 Sick sinus syndrome; K21.9 Gastro-esophageal reflux disease without esophagitis; I50.9 Heart failure, unspecified; N18.9 Chronic kidney disease, unspecified; M46.1 Sacroiliitis, not elsewhere classified; Z82.3 Family history of stroke; Z82.49 Family history of ischemic heart disease and other diseases of the circulatory system; Z83.3 Family history of diabetes mellitus; Z86.718 Personal history of other venous thrombosis and embolism; Z88.0 Allergy status to penicillin; Z88.1 Allergy status to other antibiotic agents; Z90.49 Acquired absence of other specified parts of digestive tract; Z98.891 History of uterine scar from previous surgery; Z68.31 Body mass index [BMI] 31.0-31.9, adult
CPT/HCPCS: 36415; 43239; 71045; 72192; 73502; 74176; 76775; 78306; 80048; 80053; 81001; 82105; 82270; 82306; 82378; 82570; 82607; 82728; 82746; 82962; 83540; 83550; 83735; 83880; 83935; 83970; 84100; 84155; 84156; 84165; 84300; 84443; 85025; 85610; 85730; 86300; 86301; 86304; 86850; 86900; 86901; 86920; 87086; 87088; 87186; 93005; 93971; 94640; 97110; 97116; 97163; 97530; 99291; 99292; G0378; J1756; J1815; J2250; J2470; J3480

== ENCOUNTER 2024-09-14 15:16 | Outpatient (CLI) | payer OTHER, MEDICAID ==
[2024-09-14 15:35] LABS: Basophils # (auto) 0.1 10 ^3/uL (0-0.2); Basophils % (auto) 1.3 % (0.0-2.0); Eosinophils # (auto) 0.2 10 ^3/uL (0-0.8); Eosinophils % (auto) 2.6 % (0.0-7.0); Hematocrit 29.8 % (36.0-46.0); Hemoglobin 9.4 g/dL (12.2-16.2); Lymphocytes # (auto) 1.5 10 ^3/uL (0.4-5.4); Lymphocytes % (auto) 22.8 % (10.0-50.0); Mean Corpuscular Hemoglobin 29.8 pg (28.0-32.0); Mean Corpuscular Hgb Conc. 31.6 g/dL (32.0-36.0); Mean Corpuscular Volume 94.2 fL (80.0-100.0); Monocytes # (auto) 0.7 10 ^3/uL (0-1.3); Monocytes % (auto) 10.4 % (0.0-12.0); Neutrophils # (auto) 4.2 10 ^3/uL (1.6-8.6); Neutrophils % (auto) 62.9 % (37.0-80.0); Nucleated Red Blood Cells % 0.2 %; Platelet Count (auto) 386 10^3/uL (140-450); Red Blood Cells 3.16 10^6/uL (4.0-5.20); Red Cell Distribution Width 16.5 % (11.8-14.3); White Blood Cell 6.7 10^3/uL (4.4-10.8)
== END 2024-09-14 17:00 | disposition home or self-care (01) ==
LOC: LAB 15:16
PROVIDERS: ATTEND Internal Medicine
DX: D64.9 Anemia, unspecified (principal)
CPT/HCPCS: 36415; 85025

== ENCOUNTER 2024-10-02 10:25 | Inpatient (IN) | payer OTHER, MEDICAID ==
[2024-10-02] VITALS (12 sets, daily range): BP systolic 111–159; BP diastolic 46–65; PULSE 64–97; RESP 12–22; TEMP 98–98.6; O2SAT 97–100
[~2024-10-02] VITALS: Ht 149.9 cm; Wt 68.6 kg
--- NOTE | 2024-10-02 10:40 | ED.PDOC ---
[facility] H[place] Comments Diagnosis from 09/08/24 * Anemia, status post transfusion, with gastritis. * History of sick sinus syndrome, with previous pacemaker. * Hypothyroidism. * DVT left upper extremity. * History of ventral hernia. * COPD with chronic respiratory failure. * Obesity. * Hypertension. * UTI due to Klebsiella pneumoniae. * Hyponatremia. * Acute renal failure, questionable vasomotor nephropathy. * Severe left hip DJD. HPI: 79 year old female presents to the emergency department via EMS with a chief complaint of shortness of breath onset today (10/02/24). Per EMS, patient is on 2L O2 at home, began experiencing shortness of breath, almost had a fall, was as sisted to ground by family. Patient was given breathing treatment in route to ED by EMS, O2 sat is 99% after breathing treatment. Denies chest pain, dizziness, nausea, vomiting, diarrhea, fevers, chills, headache. No other symptoms or modifying factors present at this time. Patient was ambulatory at the scene per EMS. Initial Vitals BP: 131/63 HR: 64 RR: 24 O2 Sat: 99 Temp: 98.7 F Past Medical history: HTN, DVT, PE, COPD, CHF, DM, GERD, angina, asthma, arthritis, HLD, anemia, thyroid disease Past Surgical history: tonsillectomy, hernia repair, ,pacemaker, cholecystectomy Medications: albuterol, donepezil hydrochloride, docusate sodium, ferrous sulfate, cetirizine, rivaroxaban, omeprazole Social History: Denies smoking, ETOH, and drug use. Allergies: atenolol, lisinopril, ciprofloxacin, penicillin HPI: Poor Historian. REVIEW OF SYSTEMS: CONSTITUTIONAL: Denies acute: fever, diaphoresis, chills, HEAD: Denies acute: headache, photophobia Eyes: Denies acute: Double vision, vision loss, eye pain, eye discharge. EARS: Denies acute: tinnitus, hearing loss, ear discharge, ear pain, THROAT: Denies acute: sore throat, swelling, difficulty swallowing , pain with swallowing, change in voice. NECK: Denies acute: neck pain, neck swelling, stiff neck. HEART: Denies acute : chest pain, palpitations, LUNGS: Denies acute: wheezing, cough, hemoptysis ABDOMEN: Denies acute: abdominal pain, Nausea, Vomiting, diarrhea, melena , hematemesis, hematochezia SKIN: Denies acute: rash, redness, lesions, itchiness. EXTREMITIES: Denies acute: calf pain, numbness, tingling, weakness, denies pain in extremity. Denies acute: Low back pain. Neuro: Denies acute: focal neurological deficit, motor or sensory focal neurological deficit, tremors, seizure like activity, confusion, dizziness, change in mental status, loss of bowel or bladder function, cauda equina like symptoms. : Denies acute: dysuria, hematuria, flank pain, increase in urinary frequency. PSYCH: Denies acute: hallucination, suicidal ideation, homicidal ideation. FEMALE: Denies acute: abnormal vaginal bleeding, foul odor, unusual discharge. PHYSICAL EXAM: General: ----mild----acute distress, awake and alert. Head: normocephalic, atraumatic. Neck: supple, trachea is midline, no swelling. Throat: Normal phonation. Eyes:, no erythema, no purulent discharge, no proptosis, no icterus. Heart: regular rate, regular rhythm, no significant murmur appreciated. Lungs: Mild respiratory distress, No wheezing, no rhonchi, no crackles. No stridors Clear to auscultation bilaterally. Abdomen: non tender to palpation, non distended, soft, no guarding, no rebound, + bowel sounds. Patient wearing diaper Patient has sacral decubitus ulcer Neuro: Awake, Alert, oriented to name, self, situation, follows commands GCS=15. Speech is normal. Skin: no petechia, no purpura, no cyanosis, non-pale, not jaundice. Lower extremities: --trace bilateral - Pitting edema no deformity, no focal swelling, no calf TTP. Makes eye contact. moves all four extremities. Face: no apparent facial droop. ED COURSE: DISCLAIMER: This medical document was created using an electronic medical record system with voice recognition software and computerized dictation system. Although this document has been carefully reviewed, there might still be some phonetic and typographical errors. Occasional wrong-word or "sound-alike" substitutions may have occurred due to the inherent limitations of voice recognition software. These areas are purely typographical due to imperfections of the software programs and do not reflect any compromise in the patient's medical care. Please read the chart carefully and recognize, using context, where these substitutions have occurred. Chief Complaint: Shortness of Breath Time Seen by MD: 10:25 Primary Care Provider: Vadim Spann notes: Medications, Allergies Information Source: Patient, Emergency Med Personnel Mode of Arrival: EMS Severity: Moderate Timing: Hours Duration: Since onset Context: At Rest PE Risk Factors: None History of: Asthma, COPD, CHF, DVT/PE Prehospital treatment: Breathing Tx Modifying Factors: Nothing Associated Signs and Symptoms: Wheeze Past Medical History PAST MEDICAL HISTORY: Anemia, Angina, Arthritis, Asthma, CHF, COPD, DM, GERD, HTN, Thyroid Past Medical History (Other): DVT, PE Surgical History: Cholecystectomy, , Hernia Repair, Pacemaker, Tonsillectomy FISCAL ANALYST History: No Pertinent FISCAL ANALYST History Family History Family History: Reviewed,noncontributory to illness, Unknown Social History Smoker: Non-Smoker Alcohol: Denies ETOH Use Drugs: Denies Drug Use Lives In: Home Was a procedure done? Was a procedure done?: No Differential Dx Differential Diagnosis: Other (DDx include ACS, unstable angina, anxiety, PE, pneumothroax, neoplasm, cardiac ischemia, COPD, asthma, CHF, pleural effusion, tobacco abuse, pneumonia, hypoxia, hypercapnia, anemia., infection/sepsis., pulmonary edema. Asthma, Cardiac tamponade, infection.) X-Ray, Labs, Meds, VS Vital Signs Date Time Temp Pulse Resp B/P (MAP) Pulse Ox O2 Delivery O2 Flow Rate FiO2 10/02/24 14:30 99.4 67 14 117/70 (86) 100 99.4 10/02/24 12:30 98.2 65 12 151/40 (77) 100 98.2 10/02/24 10:47 22 100 Simple Mask* 8 60 10/02/24 10:40 96.7 76 19 136/66 (89) 100 96.7 10/02/24 10:40 97 19 100 Simple Mask* 9 90 10/02/24 10:34 65 10/02/24 10:30 98.7 64 24 131/63 (85) 99 98.7 Lab Test 10/02/24 13:46 10/02/24 13:16 Range/Units White Blood Count 6.1 4.4-10.8 10^3/uL Red Blood Count 2.09 L 4.0-5.20 10^6/uL Hemoglobin 6.8 *L 12.2-16.2 g/dL Hematocrit 21.0 L 36.0-46.0 % Mean Corpuscular Volume 100.4 H 80.0-100.0 fL Mean Corpuscular Hemoglobin 32.3 H 28.0-32.0 pg Mean Corpuscular Hemoglobin Concent 32.2 32.0-36.0 g/dL Red Cell Distribution Width 19.7 H 11.8-14.3 % Platelet Count 290 140-450 10^3/uL Mean Platelet Volume 6.8 L 6.9-10.8 fL Neutrophils (%) (Auto) 73.1 37.0-80.0 % Lymphocytes (%) (Auto) 16.9 10.0-50.0 % Monocytes (%) (Auto) 8.0 0.0-12.0 % Eosinophils (%) (Auto) 1.2 0.0-7.0 % Basophils (%) (Auto) 0.8 0.0-2.0 % Neutrophils # (Auto) 4.5 1.6-8.6 10 ^3/uL Lymphocytes # (Auto) 1.0 0.4-5.4 10 ^3/uL Monocytes # (Auto) 0.5 0-1.3 10 ^3/uL Eosinophils # (Auto) 0.1 0-0.8 10 ^3/uL Basophils # (Auto) 0 0-0.2 10 ^3/uL Nucleated Red Blood Cells 0.1 % Platelet Estimate Adequate Anisocytosis (manual) Slight Macrocytosis Slight Reticulocyte Count (auto) 4.69 H 0.5-1.5 % Hemoglobin A1c 4.4 <5.7 % A1C Iron Level 51 50-170 ug/dL Total Iron Binding Capacity 257 250-425 ug/dL Percent Iron Saturation 19.8 15-50 % Troponin I High Sensitivity 6 5 </=34 ng/L B-Type Natriuretic Peptide 58.47 0-100 pg/mL CA 125 Antigen 10.3 0.0-38.1 U/mL Vitamin B12 Level 805 211-911 pg/mL Vitamin D 25-Hydroxy 35 . ng/mL 25-Hydroxy Vitamin D2 <1.0 . ng/mL 25-Hydroxy Vitamin D3 35 . ng/mL Sodium Level 145 136-145 mmol/L Potassium Level 3.9 3.5-5.1 mmol/L Chloride Level 119 H 98-107 mmol/L Carbon Dioxide Level 14 L 20-31 mmol/L Anion Gap 12 5-15 Blood Urea Nitrogen 32 H 9-23 mg/dL Creatinine 1.08 H 0.550-1.02 mg/dL Glomerular Filtration Rate Calc 52 >90 mL/min BUN/Creatinine Ratio 29.6 H 10.0-20.0 Serum Glucose 93 74-106 mg/dL Calcium Level 10.8 H 8.7-10.4 mg/dL Total Bilirubin < 0.2 L 0.2-1.0 mg/dL Aspartate Amino Transferase (AST) 70 H 13-40 U/L Alanine Aminotransferase (ALT) 39 7-40 U/L Alkaline Phosphatase 92 46-116 U/L Total Protein 6.2 5.7-8.2 g/dL Albumin 3.5 3.2-4.8 g/dL [place] [id number] Ph: [phone] DIAGNOSTIC IMAGING Diagnostic Imaging Report : [id number] Signed PATIENT: RONALD LUCERO ACCT: [id number] UNIT: [id number] : 1945 LOC: ER ROOM / BED: / AGE / SEX: 79 / F ADM STATUS: REG ER SERVICE 1030 ORDERING PHYSICIAN: SHARRI SUMNER DO PROCEDURE(s): CXRP - CHEST PORTABLE REASON: sob ORDER NUMBER(s): [id number], ACCESSION NUMBER(s): [id number] XY CHEST PORTABLE, HISTORY: sob COMPARISON: XY CHEST XRAY 1 VIEW on DOS: 08/31/24, XY CHEST PORTABLE on DOS: 08/27/24, XY CHEST PORTABLE on DOS: 08/25/24 XY CHEST XRAY 1 VIEW on DOS: 08/31/24, XY CHEST PORTABLE on DOS: 08/27/24, XY CHEST PORTABLE on DOS: 08/25/24 TECHNICAL DATA: 1 view of the chest was obtained. FINDINGS: Lines and tubes: A cardiac pacer is seen. Cardiomediastinal silhouette: normal Pulmonary vasculature: normal Lung expansion: normal Lung airspace: normal Lung interstitium: normal Pleura: Right apical pleural scarring. Pneumothorax: no Bones: Unremarkable Other: no IMPRESSION: Right apical pleural scarring similar to prior ATED BY: ANDREW VASQUEZ MD DICTATED DATE/TIME: 10/02/24 1057 SIGNED BY: ANDREW VASQUEZ MD SIGNED DATE/TIME: 10/02/241056 CC: Time of 1ST Reevaluation: 10:55 Reevaluation 1ST: Unchanged Time of 2ND Reevaluation: 13:35 (As of now all labs are still pending) Patient Education/Counseling: Diagnosis, Treatment Family Education/Counseling: No Family Present Comments MDM: patient presented with the above HPI.---dyspnea likely secondary to anemia---workup was initiated. patient was found with the above mentioned diagnosis. the following medications were ordered: please refer to order lists of meds and tests obtained by myself Dr. Sumner. Patient ED course and VS have been stabilized. Patient has been reassessed in the ED and remained in a stable condition. Pertinent incidental findings were discussed with the patient and/or family. Patient/family voices understanding and is agreeable with plan. Patient has been observed in the ED adequate length of time to insure improvement/stability. Escalation of care considered: Consideration of escalation to observation or admission Patient was ADMITTED to the medicine team for further evaluation and treatment of their presentation. Patient was consented for blood transfusion. Patient was given DuoNeb treatment and Solu-Medrol as well. All the reports of any imaging studies that were ordered by myself were reviewed by myself. Departure 1 Departure Time of Disposition: 14:25 Impression: Primary Impression: Dyspnea Qualified Codes: R06.00 - Dyspnea, unspecified Additional Impression: Symptomatic anemia Disposition: ADMITTED INPATIENT Admit to: Tele Condition: Guarded Discharged With: Self Critical Care Note Critical Care Time?: Yes (45 min-critical care time only) Heart Score Heart Score: Heart Score Response (Comments) Value History Moderate Suspicious 1 EKG Normal 0 Age >65 2 Risk Factors >3 or Hx ASHD 2 Troponin Normal limit 0 Total 5 I personally scribed for SHARRI SUMNER DO ([email or web address]) on 10/02/24 at 10:40. Electronically submitted by Stacey Crawley ([email or web address]). I personally scribed for SHARRI SUMNER DO ([email or web address]) on 10/02/24 at 13:04. Electronically submitted by Stacey Crawley ([email or web address]). I personally scribed for SHARRI SUMNER DO ([email or web address]) on 10/02/24 at 14:27. Electronically submitted by Stacey Crawley ([email or web address]). SHARRI SUMNER DO Oct 02, 2024 10:40
[2024-10-02] MEDS: ALBUTEROL SULF 2.5 MG/0.5ML(0.5%) NEB SOLN NEB ONE (10:52)
[2024-10-02] MEDS: IPRATROPIUM BROM 0.5 MG/2.5ML INH SOL NEB ONE (10:52)
--- NOTE | 2024-10-02 11:00 | DVH ---
XY CHEST PORTABLE, HISTORY: sob COMPARISON: XY CHEST XRAY 1 VIEW on DOS: 08/31/24, XY CHEST PORTABLE on DOS: 08/27/24, XY CHEST PORTABLE on DOS: 08/25/24 XY CHEST XRAY 1 VIEW on DOS: 08/31/24, XY CHEST PORTABLE on DOS: 08/27/24, XY CHEST PORTABLE on DOS: TECHNICAL DATA: 1 view of the chest was obtained. FINDINGS: Lines and tubes: A cardiac pacer is seen. Cardiomediastinal silhouette: normal Pulmonary vasculature: normal Lung expansion: normal Lung airspace: normal Lung interstitium: normal Pleura: Right apical pleural scarring. Pneumothorax: no Bones: Unremarkable Other: no IMPRESSION: Right apical pleural scarring similar to prior
[2024-10-02] MEDS: methylPREDNISolone SOD SUCC 125 MG/2 ML VL IV ONE (13:55)
[2024-10-02 14:00] LABS: Alanine Aminotransferase 39 U/L (7-40); Albumin 3.5 g/dL (3.2-4.8); Alkaline Phosphatase 92 U/L (46-116); Anion Gap 12 (5-15); BUN/Creatinine Ratio 29.6 (10.0-20.0); Glucose 93 mg/dL (74-106); Potassium 3.9 mmol/L (3.5-5.1); Total Protein 6.2 g/dL (5.7-8.2)
[2024-10-02 14:02] LABS: Bilirubin, Total < 0.2 mg/dL (0.2-1.0); Blood Urea Nitrogen 32 mg/dL (9-23); Calcium 10.8 mg/dL (8.7-10.4); Carbon Dioxide 14 mmol/L (20-31); Chloride 119 mmol/L (98-107); Sodium 145 mmol/L (136-145)
[2024-10-02 14:11] LABS: Hematocrit 21.0 % (36.0-46.0); Mean Corpuscular Hemoglobin 32.3 pg (28.0-32.0); Mean Corpuscular Volume 100.4 fL (80.0-100.0); Nucleated Red Blood Cells % 0.1 %
[2024-10-02 14:17] LABS: Hemoglobin 6.8 g/dL (12.2-16.2)
[2024-10-02 14:23] LABS: Anisocytosis Slight
[2024-10-02 14:24] LABS: Macrocytosis Slight
[2024-10-02] MEDS ORDERED: MORPHINE SULFATE INJ 2 MG/ml SYRG IV PRN (14:45)
[2024-10-02] MEDS ORDERED: NITROGLYCERIN 0.4 MG SL TAB SL PRN (14:45)
[2024-10-02] MEDS ORDERED: ONDANSETRON HCL 4 MG/2 ML VIAL IV PRN (14:45)
[2024-10-02] MEDS ORDERED: DONE1TAB88 PO (15:25)
[2024-10-02] MEDS ORDERED: OYST500T28 (15:25)
--- NOTE | 2024-10-02 15:37 | DVHHP2 ---
History of Present Illness Reason for Visit: Shortness of breath History of Present Illness Rocio Muller is a 79 year female with past medical history of hypertension, DVT left upper extremity, PE, COPD, CHF, diabetes, GERD, asthma, arthritis, hyperlipidemia, anemia, thyroid disease, UTI, left hip DJD, gastritis, hiatal hernia, sick sinus syndrome with pacemaker, tonsillectomy, hernia repair, C- section, pacemaker, and cholecystectomy who presents to the ED with shortness of breath that started this morning at home. Patient states that she was lying in bed when the shortness of breath occurred. She also reports that she uses 2 L of oxygen via nasal cannula continuously at home. Patient also reports that she is on blood thinner medications but does not really recall what. She states that she has a caregiver during the day Luz and at night Imelda who helps with her needs. Patient also reports that she fell 1 year ago landed on her legs. Patient denies any chest pain, fever or chills, lightheadedness, weakness, dizziness, abdominal pain, nausea, vomiting, diarrhea, recent sick contacts, recent ingestion of spoiled food, recent travels, recent trauma or injury, urinary symptoms, melena hematochezia or hematemesis. Call patient's daughter Jeanne and states that patient is on Xarelto for her blood clots. Updated her on plan of care. Jeanne stated that her mom was in the hospital last month and required a blood transfusion. Also reported that she follows up regularly with her PCP. She also reports that there has been no blood in her stool. She also denies any family history of cancer but does state that her mom is adopted. Cardiovascular: CHF, HTN, hyperipidemia Pulmonary: Asthma, COPD GI: GERD Heme/Onc: Anemia NOS Renal/: UTI Endocrine: Diabetes, Hypothyroidism Past Medical History DVT left upper extremity PE Past Surgical History: Cholecystectomy, , Hernia Repair, Other (Yifan alcaraz), Tonsillectomy Family History: None Smoke: Quit ALCOHOL: none Drugs: None Lives: Other (Caregivers) Domestic Violence: Neg Review of Systems Respiratory: Shortness of breath Allergies: Coded Allergies: Atenolol (Verified Allergy, Mild, RASH/ITCHING, 12/18/20) Lisinopril (Verified Allergy, Mild, 12/18/20) Ciprofloxacin (Verified Allergy, Unknown, 11/20/22) Penicillin V (Verified Allergy, Unknown, 12/18/20) Penicillins (Unverified Allergy, Unknown, 08/17/24) Medications Current Medications Medications Dose Ordered Sig/Leonor Route Start Time Stop Time Status Last Admin Dose Admin Ondansetron HCl 4 mg Q4HP PRN IV 10/02/24 14:45 UNV Acetaminophen 650 mg Q6HP PRN PO 10/02/24 14:45 UNV Nitroglycerin 0.4 mg Q5MINP PRN SL 10/02/24 14:45 UNV Morphine Sulfate 2 mg Q30M PRN IV 10/02/24 14:45 UNV Amiodarone HCl 200 mg BID PO 10/02/24 22:00 UNV Ascorbic Acid 500 mg DAILY PO 10/03/24 10:00 UNV Cholecalciferol 1,000 unit DAILY PO 10/03/24 10:00 UNV Patient Own Medication 1 tab DAILY PO 10/03/24 10:00 UNV Patient Own Medication 1 mg DAILY PO 10/03/24 10:00 UNV Patient Own Medication 75 mcg DAILY PO 10/03/24 10:00 UNV Patient Own Medication 1 tab DAILY PO 10/03/24 10:00 UNV Patient Own Medication 1 cap DAILY PO 10/03/24 10:00 UNV Exam Vital Signs Vital Signs Date Time Temp Pulse Resp B/P (MAP) Pulse Ox O2 Delivery O2 Flow Rate FiO2 10/02/24 14:30 99.4 67 14 117/70 (86) 100 99.4 10/02/24 10:47 Simple Mask* 8 60 General Appearance: Alert, Oriented X3, Cooperative, No acute distress HEENT: Atraumatic, PERRLA, EOMI, Mucous membr. moist/pink Respiratory: Normal air movement Cardiovascular: Regular rate, Normal S1, Normal S2, No murmurs Abdominal: Normal bowel sounds, Soft Extremities: Normal pulses Neuro: Normal speech, Strength at 5/5 X4 ext, Normal tone, Sensation intact Psych/Mental Status: Mental status NL, Mood NL Labs/Xrays Labs Test 10/02/24 13:46 10/02/24 13:16 Range/Units White Blood Count 6.1 4.4-10.8 10^3/uL Red Blood Count 2.09 L 4.0-5.20 10^6/uL Hemoglobin 6.8 *L 12.2-16.2 g/dL Hematocrit 21.0 L 36.0-46.0 % Mean Corpuscular Volume 100.4 H 80.0-100.0 fL Mean Corpuscular Hemoglobin 32.3 H 28.0-32.0 pg Mean Corpuscular Hemoglobin Concent 32.2 32.0-36.0 g/dL Red Cell Distribution Width 19.7 H 11.8-14.3 % Platelet Count 290 140-450 10^3/uL Mean Platelet Volume 6.8 L 6.9-10.8 fL Neutrophils (%) (Auto) 73.1 37.0-80.0 % Lymphocytes (%) (Auto) 16.9 10.0-50.0 % Monocytes (%) (Auto) 8.0 0.0-12.0 % Eosinophils (%) (Auto) 1.2 0.0-7.0 % Basophils (%) (Auto) 0.8 0.0-2.0 % Neutrophils # (Auto) 4.5 1.6-8.6 10 ^3/uL Lymphocytes # (Auto) 1.0 0.4-5.4 10 ^3/uL Monocytes # (Auto) 0.5 0-1.3 10 ^3/uL Eosinophils # (Auto) 0.1 0-0.8 10 ^3/uL Basophils # (Auto) 0 0-0.2 10 ^3/uL Nucleated Red Blood Cells 0.1 % Platelet Estimate Adequate Anisocytosis (manual) Slight Macrocytosis Slight Troponin I High Sensitivity 6 </=34 ng/L B-Type Natriuretic Peptide 58.47 0-100 pg/mL Sodium Level 145 136-145 mmol/L Potassium Level 3.9 3.5-5.1 mmol/L Chloride Level 119 H 98-107 mmol/L Carbon Dioxide Level 14 L 20-31 mmol/L Anion Gap 12 5-15 Blood Urea Nitrogen 32 H 9-23 mg/dL Creatinine 1.08 H 0.550-1.02 mg/dL Glomerular Filtration Rate Calc 52 >90 mL/min BUN/Creatinine Ratio 29.6 H 10.0-20.0 Serum Glucose 93 74-106 mg/dL Calcium Level 10.8 H 8.7-10.4 mg/dL Total Bilirubin < 0.2 L 0.2-1.0 mg/dL Aspartate Amino Transferase (AST) 70 H 13-40 U/L Alanine Aminotransferase (ALT) 39 7-40 U/L Alkaline Phosphatase 92 46-116 U/L Total Protein 6.2 5.7-8.2 g/dL Albumin 3.5 3.2-4.8 g/dL XY CHEST PORTABLE, HISTORY: sob COMPARISON: XY CHEST XRAY 1 VIEW on DOS: 08/31/24, XY CHEST PORTABLE on DOS: 08/27/24, XY CHEST PORTABLE on DOS: 08/25/24 XY CHEST XRAY 1 VIEW on DOS: 08/31/24, XY CHEST PORTABLE on DOS: 08/27/24, XY CHEST PORTABLE on DOS: 08/25/24 TECHNICAL DATA: 1 view of the chest was obtained. FINDINGS: Lines and tubes: A cardiac pacer is seen. Cardiomediastinal silhouette: normal Pulmonary vasculature: normal Lung expansion: normal Lung airspace: normal Lung interstitium: normal Pleura: Right apical pleural scarring. Pneumothorax: no Bones: Unremarkable Other: no IMPRESSION: Right apical pleural scarring similar to prior SEPSIS Sepsis Screen Date sepsis recognized/suspect: Oct 02, 2024 Time Sepsis recognized/suspect: 1044 Recent Procedure: No On Antibiotic Therapy: No Respiratory Rate >20: No Heart Rate >90: No Temp<36 C (96.8 F) or >38.3 C: No SBP <90 or MAP <65 mmHG: No New Acute Mental Status Change: No Is the patient on CPAP, BIPAP,: No Physician Orders Auditing Coder (10/02/24 ) Urinalysis (10/02/24 10:30) Chest Portable (10/02/24 10:30) Electrocardigram (10/02/24 10:30) Troponin-I Hs (10/02/24 13:30) Ipratropium Medneb (Atrovent Medneb) (10/02/24 10:30) Type And Screen (10/02/24 11:20) Insert Midline (10/02/24 12:24) Obtain Consent For: (10/02/24 14:24) Obtain Consent For Anesthesia (10/02/24 14:24) Admit (10/02/24 14:32) Allergies (10/02/24 14:32) Code Status (10/02/24 14:32) Ondansetron Hcl (Zofran) (10/02/24 14:45) Complete Blood Count (10/03/24 04:00) Comprehensive Metabolic Panel (10/03/24 04:00) Cardiac Diet-2gna,Lofat,Lochol (10/02/24 Dinner) Acetaminophen Tablet (Tylenol Tablet) (10/02/24 14:45) Nitroglycerin Sublingual (Ntrostat Subli (10/02/24 14:45) Morphine Sulfate Injection (10/02/24 14:45) Stat Ekg For Chest Pain (10/02/24 14:32) Notify Md Of Changes From Base (10/02/24 14:32) Onion Farmer For 24 Hours (10/02/24 14:32) Emergency Dysrhythmia Protocol (10/02/24 14:32) Rhythm Strips Once Every Shift (10/02/24 14:32) Oxygen By Nasal Cannula (10/02/24 14:32) Stool Occult Blood (10/02/24 14:32) Iron Panel (10/02/24 14:32) Vitamin B12 (10/02/24 14:32) Vitamin D 25-Hydroxy D2 + D3 (10/02/24 14:32) Reticulocyte Count (10/02/24 14:32) Cancer Antigen (Ca) 125 (10/02/24 14:32) Amiodarone Tablet (Cordarone Tablet) (10/02/24 22:00) Ascorbic Acid Tablet (Vitamin C Tablet) (10/03/24 10:00) Cholecalciferol Tablet (Vitamin D3 Table (10/03/24 10:00) (Nf) Ferrous Sulfate (Ferosul) (10/03/24 10:00) (Nf) Folic Acid (10/03/24 10:00) (Nf) Levothyroxine Sodium (10/03/24 10:00) (Nf) Metoprolol Succinate (Metoprolol [place] (10/03/24 10:00) (Nf) Omeprazole (Omeprazole Dr) (10/03/24 10:00) Haptoglobin (10/02/24 15:25) Direct Farhad (10/02/24 15:25) Indirect Farhad Test (10/02/24 15:25) Vitamin B1 (Thiamine) (10/02/24 15:25) Vital Signs Date Time Temp Pulse Resp B/P (MAP) Pulse Ox O2 Delivery O2 Flow Rate FiO2 10/02/24 14:30 99.4 67 14 117/70 (86) 100 99.4 10/02/24 12:30 98.2 65 12 151/40 (77) 100 98.2 10/02/24 10:47 22 100 Simple Mask* 8 60 10/02/24 10:40 96.7 76 19 136/66 (89) 100 96.7 10/02/24 10:40 97 19 100 Simple Mask* 9 90 10/02/24 10:34 65 10/02/24 10:30 98.7 64 24 131/63 (85) 99 98.7 Laboratory Tests Test 10/02/24 13:46 White Blood Count 6.1 10^3/uL (4.4-10.8) Medications Medications Dose Ordered Sig/Leonor Route Start Time Stop Time Status Last Admin Dose Admin Albuterol 2.5 mg ONCE ONCE NEB 10/02/24 10:30 10/02/24 10:32 DC 10/02/24 10:52 2.5 MG Ipratropium [place] 1 mg ONCE ONCE NEB 10/02/24 10:30 10/02/24 10:32 DC 10/02/24 10:52 1 MG Methylprednisolone Sodium Succinate 125 mg ONCE ONCE IV 10/02/24 10:30 10/02/24 10:32 DC 10/02/24 13:55 125 MG Assessment/Plan Assessment/Plan Assessment Acute on chronic COPD exacerbation Acute hypoxic respiratory failure Severe anemia requiring transfusion RYDER likely due to anemia Hypercalcemia Right apical pleural scarring likely due to inflammatory versus infectious versus other etiology Obesity Ex-smoker History of sick sinus syndrome with pacemaker History of hypothyroidism History of DVT left upper extremity History of ventral hernia History of hypertension History of UTI due to Klebsiella pneumonia History of hyponatremia History of severe left hip DJD Plan Admit to [facility] Transfuse PRBCs for hemoglobin less than 7.0 Type and screen Supportive oxygen Midline ordered by ED Steroids ordered by ED Duo nebs Troponin EKG Chest x-ray UA Troponins BNP Stool OB Iron panel Reticulocyte count Vitamin-D level Vitamin-B level Haptoglobin Direct and indirect Farhad Thiamine CA 125 Diet Home medications reconciled-hold Xarelto due to severe anemia DVT prophylaxis-patient ambulates not indicated at this time PUD prophylaxis-PPIs Discussed care plan with patient and nurse [id number] Behavior change smoking and discussed continuance of cessation of smoking [id number] Preventive counseling healthy eating habits, physical activity, and regular checkups Plan discussed with: Patient My Orders Orders - SCOTDANICA 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 Procedure Category Date Status Time Admit ADMIT 10/02/24 Transmitted 14:32 Allergies MARGI 10/02/24 In Process 14:32 Code Status CODE 10/02/24 Transmitted 14:32 Ondansetron Hcl PHA 10/02/24 Logged (Zofran) 14:45 Complete Blood Count LAB 10/03/24 Verified 04:00 Comprehensive LAB 10/03/24 Verified Metabolic Panel 04:00 Cardiac DIET 10/02/24 Transmitted Diet-2gna,Lofat,Lochol Dinner Acetaminophen Tablet PHA 10/02/24 Logged (Tylenol Tablet) 14:45 Nitroglycerin PHA 10/02/24 Logged Sublingual (Ntrostat 14:45 Morphine Sulfate PHA 10/02/24 Logged Injection 14:45 Stat Ekg For Chest MARGI 10/02/24 In Process Pain 14:32 Notify Of Changes [facility] 10/02/24 In Process From Base 14:32 Onion Farmer For [facility] 10/02/24 In Process 24 Hours 14:32 Emergency Dysrhythmia [facility] 10/02/24 In Process Protocol 14:32 Rhythm Strips Once [facility] 10/02/24 In Process Every Shift 14:32 Oxygen By Nasal RT 10/02/24 Transmitted Cannula 14:32 Stool Occult Blood LAB 10/02/24 Logged 14:32 Iron Panel LAB 10/02/24 In Process 14:32 Vitamin B12 LAB 10/02/24 In Process 14:32 Vitamin D 25-Hydroxy LAB 10/02/24 In Process D2 + D3 14:32 Reticulocyte Count LAB 10/02/24 In Process 14:32 Cancer Antigen (Ca) LAB 10/02/24 In Process 125 14:32 Amiodarone Tablet PHA 10/02/24 Logged (Cordarone Tablet) 22:00 Ascorbic Acid Tablet PHA 10/03/24 Logged (Vitamin C Tablet) 10:00 Cholecalciferol PHA 10/03/24 Logged Tablet (Vitamin D3 10:00 (Nf) Ferrous Sulfate PHA 10/03/24 Logged (Ferosul) 10:00 (Nf) Folic Acid PHA 10/03/24 Logged 10:00 (Nf) Levothyroxine PHA 10/03/24 Logged Sodium 10:00 (Nf) Metoprolol PHA 10/03/24 Logged Succinate (Metoprolol 10:00 (Nf) Omeprazole PHA 10/03/24 Logged (Omeprazole Dr) 10:00 Haptoglobin LAB 10/02/24 Logged 15:25 Direct Farhad BBK 10/02/24 Logged 15:25 Indirect Farhad Test BBK 10/02/24 Logged 15:25 Vitamin B1 (Thiamine) LAB 10/02/24 Logged 15:25 Date of Service: Oct 02, 2024 Billing Provider: DANICA CROSS Common Visit Codes: [id number] INP/OBS CARE (HIGH) Secondary Visit Codes: [id number] COUNSELING IND DANICA CROSS Oct 02, 2024 15:37
[2024-10-02 15:45] LABS: Iron 51.0 ug/dL (50-170)
[2024-10-02] MEDS ORDERED: DEXTROSE (50%) 50ML SYRG IV PRN (15:45)
[2024-10-02 15:47] LABS: Total Iron Binding Capacity 257.0 ug/dL (250-425)
[2024-10-02] MEDS: IPRATROPIUM BROM 0.5 MG/2.5ML INH SOL NEB SCH (18:44)
[2024-10-02] MEDS: ALBUTEROL SULF 2.5 MG/0.5ML(0.5%) NEB SOLN NEB SCH (18:44)
[2024-10-02] MEDS: InsuLIN REG 1unit/0.01ml Soln (100units/ml) SC SCH (19:40)
[2024-10-02] MEDS: ACCU-CHEK COMFORT CURVE STRIP VI SCH (19:40)
[2024-10-02 22:45] LABS: Hematocrit 31.1 % (36.0-46.0); Hemoglobin 10.2 g/dL (12.2-16.2); Mean Corpuscular Hemoglobin 31.1 pg (28.0-32.0); Mean Corpuscular Volume 94.9 fL (80.0-100.0); Nucleated Red Blood Cells % 0.1 %
[2024-10-02] MEDS: PANTOPRAZOLE 40 MG/10 ML VIAL INJ IV SCH (22:55)
[2024-10-02] MEDS: AMIODARONE HCL 200 MG TAB PO SCH (22:56)
[2024-10-03] VITALS (18 sets, daily range): BP systolic 120–160; BP diastolic 53–78; PULSE 61–69; RESP 14–18; TEMP 97.4–98.5; O2SAT 94–100
[2024-10-03 06:25] LABS: Urine Protein, UAD Negative (Negative)
[2024-10-03] MEDS: LEVOTHYROXINE SODIUM 25 MCG TAB PO SCH (06:56)
[2024-10-03] MEDS: LEVOTHYROXINE SODIUM 50 MCG TAB PO SCH (06:56)
[2024-10-03 08:19] LABS: Hematocrit 25.8 % (36.0-46.0); Hemoglobin 8.6 g/dL (12.2-16.2); Mean Corpuscular Hemoglobin 31.0 pg (28.0-32.0); Mean Corpuscular Volume 93.1 fL (80.0-100.0); Nucleated Red Blood Cells % 0.1 %
[2024-10-03 08:21] LABS: Alanine Aminotransferase 33 U/L (7-40); Albumin 3.5 g/dL (3.2-4.8); Alkaline Phosphatase 81 U/L (46-116); Anion Gap 12 (5-15); BUN/Creatinine Ratio 33.8 (10.0-20.0); Bilirubin, Total 0.3 mg/dL (0.2-1.0); Blood Urea Nitrogen 24 mg/dL (9-23); Calcium 10.5 mg/dL (8.7-10.4); Carbon Dioxide 17 mmol/L (20-31); Chloride 118 mmol/L (98-107); Glucose 116 mg/dL (74-106); Potassium 3.5 mmol/L (3.5-5.1); Sodium 147 mmol/L (136-145); Total Protein 6.1 g/dL (5.7-8.2)
[2024-10-03] MEDS ORDERED: PATIENTS OWN MEDICATION (Metoprolol Succinate (Metoprolol Succinate Er) 1 TAB) PO SCH (10:00)
[2024-10-03] MEDS ORDERED: PATIENTS OWN MEDICATION (Folic Acid 1 MG) PO SCH (10:00)
[2024-10-03] MEDS ORDERED: PATIENTS OWN MEDICATION (Omeprazole (Omeprazole Dr) 1 CAP) PO SCH (10:00)
[2024-10-03] MEDS ORDERED: PATIENTS OWN MEDICATION (Ferrous Sulfate (Ferosul) 1 TAB) PO SCH (10:00)
[2024-10-03] MEDS ORDERED: PATIENTS OWN MEDICATION (Levothyroxine Sodium 75 MCG) PO SCH (10:00)
[2024-10-03] MEDS: FERROUS SULFATE 325mg EC TAB PO SCH (10:26)
[2024-10-03] MEDS: CHOLECALCIFEROL (VITD3) 1,000UNIT=25mCg TAB PO SCH (10:27)
[2024-10-03] MEDS: PANTOPRAZOLE 40 MG TAB PO SCH (10:27)
[2024-10-03] MEDS: FOLIC ACID 1 MG TAB PO SCH (10:27)
[2024-10-03] MEDS: METOPROLOL SUCCINATE XL 50 MG TAB PO SCH (10:27)
[2024-10-03] MEDS: ASCORBIC ACID 500 MG TAB PO SCH (10:27)
--- NOTE | 2024-10-03 12:53 | DVHPN2 ---
Reviewed: Care Plan, H&P, Labs, Medications, Previous Orders, Radiology Changes from previous H/P or p: No Changes Respiratory: Shortness of breath Objective Vitals Vital Signs Date Time Temp Pulse Resp B/P (MAP) Pulse Ox O2 Delivery O2 Flow Rate FiO2 10/03/24 12:28 98.1 65 18 137/68 (91) 100 98.1 10/03/24 10:27 Nasal Cannula 2.0 10/03/24 10:27 28 Intake/Output Intake and Output 10/03/24 07:00 Intake Total 840 ml Balance 840 ml Intake Oral 240 ml Blood Product 300 ml Other 300 ml # Voids 1 Medications Current Medications Medications Dose Ordered Sig/Leonor Route Start Time Stop Time Status Last Admin Dose Admin Ondansetron HCl 4 mg Q4HP PRN IV 10/02/24 14:45 Acetaminophen 650 mg Q6HP PRN PO 10/02/24 14:45 Nitroglycerin 0.4 mg Q5MINP PRN SL 10/02/24 14:45 Morphine Sulfate 2 mg Q30M PRN IV 10/02/24 14:45 Amiodarone HCl 200 mg BID PO 10/02/24 22:00 10/03/24 10:27 200 MG Ascorbic Acid 500 mg DAILY PO 10/03/24 10:00 10/03/24 10:27 500 MG Cholecalciferol 1,000 unit DAILY PO 10/03/24 10:00 10/03/24 10:27 1,000 UNIT Patient Own Medication 1 tab DAILY PO 10/03/24 10:00 UNV Patient Own Medication 1 mg DAILY PO 10/03/24 10:00 UNV Patient Own Medication 75 mcg DAILY PO 10/03/24 10:00 UNV Patient Own Medication 1 tab DAILY PO 10/03/24 10:00 UNV Patient Own Medication 1 cap DAILY PO 10/03/24 10:00 UNV Pantoprazole Sodium 40 mg BID IV 10/02/24 22:00 10/02/24 22:55 40 MG Albuterol 2.5 mg Q4HWA NEB 10/02/24 18:00 10/03/24 10:27 2.5 MG Ipratropium [place] 0.5 mg Q4HWA NEB 10/02/24 18:00 10/03/24 10:27 0.5 MG Diagnostic Test (Pha) 1 strip ACHS 10/02/24 17:00 10/03/24 11:30 1 STRIP Insulin Human Regular ACHS SC 10/02/24 17:00 Dextrose 50 ml UD PRN IV 10/02/24 15:45 Ferrous Sulfate 325 mg DAILY PO 10/03/24 10:00 10/03/24 10:26 325 MG Folic Acid 1 mg DAILY PO 10/03/24 10:00 10/03/24 10:27 1 MG Levothyroxine Sodium 50 mcg QAM PO 10/03/24 07:00 10/03/24 06:56 50 MCG Levothyroxine Sodium 25 mcg QAM PO 10/03/24 07:00 10/03/24 06:56 25 MCG Metoprolol Succinate 25 mg DAILY PO 10/03/24 10:00 10/03/24 10:27 25 MG Pantoprazole Sodium 40 mg DAILY PO 10/03/24 10:00 10/03/24 10:27 40 MG Laboratory Results Laboratory Tests 10/03/24 07:15 Chemistry Test 10/02/24 13:16 10/03/24 07:15 Albumin 3.5 g/dL (3.2-4.8) 3.5 g/dL (3.2-4.8) Calcium Level 10.8 mg/dL (8.7-10.4) H 10.5 mg/dL (8.7-10.4) H Total Protein 6.2 g/dL (5.7-8.2) 6.1 g/dL (5.7-8.2) Cardiac Markers Test 10/02/24 13:46 B-Type Natriuretic Peptide 58.47 pg/mL (0-100) LFT Test 10/02/24 13:16 10/03/24 07:15 Alanine Aminotransferase (ALT) 39 U/L (7-40) 33 U/L (7-40) Alkaline Phosphatase 92 U/L (46-116) 81 U/L (46-116) Aspartate Amino Transferase (AST) 70 U/L (13-40) H 45 U/L (13-40) H Total Bilirubin < 0.2 mg/dL (0.2-1.0) L 0.3 mg/dL (0.2-1.0) HgA1c, TSH Test 10/02/24 13:46 Hemoglobin A1c 4.4 % A1C (<5.7) Urinalysis Test 10/03/24 03:03 Urine Color Light-yellow (Yellow) Urine Clarity Turbid (Clear) H Urine pH 6.0 (5.0-9.0) Urine Specific [place] 1.017 (1.001-1.035) Urine Protein Negative (Negative) Urine Ketones Negative (Negative) Urine Blood Negative /uL (Negative) Urine Nitrite Negative (Negative) Urine Bilirubin Negative (Negative) Urine Urobilinogen Normal mg/dL (Negative) Urine Leukocyte Esterase 3+ /uL (Negative) Urine RBC 26 /hpf (0 - 4) Urine Microscopic WBC 147 /HPF (0-5) H Urine Squamous Epithelial Cells None seen /hpf (<5) Urine Bacteria Few /hpf (None Seen) H Urine Glucose Normal mg/dL (Normal) Microbiology Microbiology Date/Time Source Procedure Growth Status 10/03/24 04:32 Nose MRSA Screen - Final Complete Labs and/or images reviewed: Labs reviewed by me, Image(s) reviewed by me Assessment/Plan Assessment/Plan Acute generalized weakness Acute symptomatic anemia hemoglobin 6.8 improved to 8.6 after 1 unit RBC transfusion Sepsis secondary to urinary tract infection: Blood cultures urine cultures Acute urinary tract infection: Invanz 1 g IV daily, patient is allergic to penicillin and Cipro Sick sinus syndrome with a history of pacemaker Hypothyroidism DVT left upper extremity COPD exacerbation Hypertension RYDRE Severe DJD left hip Obesity Time Spent 70 minutes Advanced care planning time 20 mts Patient is full code Plan discussed with: Patient Date of Service: Oct 03, 2024 Billing Provider: SASHA STEELE MD Common Visit Codes: [id number] CARE 30-74 MIN SASHA STEELE MD Oct 03, 2024 12:53
[2024-10-03] MEDS: ERTAPENEM SOD INJ 1 GM in SODIUM CHL 0.9% 50 ML IV ONE (15:17)
[2024-10-04] VITALS (18 sets, daily range): BP systolic 127–150; BP diastolic 53–65; PULSE 64–91; RESP 14–20; TEMP 97.7–98.5; O2SAT 95–100
[2024-10-04] MEDS: ERTAPENEM SOD INJ 1 GM in SODIUM CHL 0.9% 50 ML IV SCH (09:32)
[2024-10-04 09:37] LABS: Hematocrit 26.8 % (36.0-46.0); Hemoglobin 8.8 g/dL (12.2-16.2); Mean Corpuscular Hemoglobin 32.4 pg (28.0-32.0); Mean Corpuscular Volume 98.4 fL (80.0-100.0); Nucleated Red Blood Cells % 0.1 %
[2024-10-04 09:56] LABS: Albumin 3.3 g/dL (3.2-4.8); Alkaline Phosphatase 78 U/L (46-116); Anion Gap 10 (5-15); BUN/Creatinine Ratio 26.7 (10.0-20.0); Blood Urea Nitrogen 20 mg/dL (9-23); Glucose 92 mg/dL (74-106); Sodium 144 mmol/L (136-145)
[2024-10-04 09:57] LABS: Bilirubin, Total 0.3 mg/dL (0.2-1.0)
[2024-10-04 10:03] LABS: Alanine Aminotransferase 55 U/L (7-40); Calcium 10.4 mg/dL (8.7-10.4); Carbon Dioxide 18 mmol/L (20-31); Chloride 116 mmol/L (98-107); Potassium 3.2 mmol/L (3.5-5.1); Total Protein 5.7 g/dL (5.7-8.2)
--- NOTE | 2024-10-04 12:54 | DVHPN2 ---
Reviewed: Care Plan, H&P, Labs, Medications, Previous Orders, Radiology Changes from previous H/P or p: No Changes Respiratory: Shortness of breath Objective Vitals Vital Signs Date Time Temp Pulse Resp B/P (MAP) Pulse Ox O2 Delivery O2 Flow Rate FiO2 10/04/24 12:30 98.3 66 18 133/55 (81) 98 98.3 10/04/24 10:00 Nasal Cannula* 1 24 Intake/Output Intake and Output 10/04/24 07:00 Intake Total 1635 ml Output Total 1000 ml Balance 635 ml Intake Oral 1635 ml Output Urine Total 1000 ml # Bowel Movements 1 Medications Current Medications Medications Dose Ordered Sig/Leonor Route Start Time Stop Time Status Last Admin Dose Admin Ondansetron HCl 4 mg Q4HP PRN IV 10/02/24 14:45 Acetaminophen 650 mg Q6HP PRN PO 10/02/24 14:45 Nitroglycerin 0.4 mg Q5MINP PRN SL 10/02/24 14:45 Morphine Sulfate 2 mg Q30M PRN IV 10/02/24 14:45 Amiodarone HCl 200 mg BID PO 10/02/24 22:00 10/04/24 09:32 200 MG Ascorbic Acid 500 mg DAILY PO 10/03/24 10:00 10/04/24 09:33 500 MG Cholecalciferol 1,000 unit DAILY PO 10/03/24 10:00 10/04/24 09:33 1,000 UNIT Patient Own Medication 1 tab DAILY PO 10/03/24 10:00 UNV Patient Own Medication 1 mg DAILY PO 10/03/24 10:00 UNV Patient Own Medication 75 mcg DAILY PO 10/03/24 10:00 UNV Patient Own Medication 1 tab DAILY PO 10/03/24 10:00 UNV Patient Own Medication 1 cap DAILY PO 10/03/24 10:00 UNV Pantoprazole Sodium 40 mg BID IV 10/02/24 22:00 10/03/24 22:14 40 MG Albuterol 2.5 mg Q4HWA NEB 10/02/24 18:00 10/04/24 10:09 2.5 MG Ipratropium [place] 0.5 mg Q4HWA NEB 10/02/24 18:00 10/04/24 10:09 0.5 MG Diagnostic Test (Pha) 1 strip ACHS 10/02/24 17:00 10/04/24 11:08 1 STRIP Insulin Human Regular ACHS SC 10/02/24 17:00 Dextrose 50 ml UD PRN IV 10/02/24 15:45 Ferrous Sulfate 325 mg DAILY PO 10/03/24 10:00 10/04/24 09:33 325 MG Folic Acid 1 mg DAILY PO 10/03/24 10:00 10/04/24 09:33 1 MG Levothyroxine Sodium 50 mcg QAM PO 10/03/24 07:00 10/04/24 06:07 50 MCG Levothyroxine Sodium 25 mcg QAM PO 10/03/24 07:00 10/04/24 06:08 25 MCG Metoprolol Succinate 25 mg DAILY PO 10/03/24 10:00 10/04/24 09:33 25 MG Pantoprazole Sodium 40 mg DAILY PO 10/03/24 10:00 10/04/24 09:33 40 MG Ertapenem 1 gm/ Sodium Chloride 50 ml @ 100 mls/hr DAILY IV 10/04/24 10:00 10/04/24 09:32 100 MLS/HR Laboratory Results Laboratory Tests 10/04/24 09:15 Chemistry Test 10/04/24 09:15 Albumin 3.3 g/dL (3.2-4.8) Calcium Level 10.4 mg/dL (8.7-10.4) Total Protein 5.7 g/dL (5.7-8.2) LFT Test 10/04/24 09:15 Alanine Aminotransferase (ALT) 55 U/L (7-40) H Alkaline Phosphatase 78 U/L (46-116) Aspartate Amino Transferase (AST) 108 U/L (13-40) H Total Bilirubin 0.3 mg/dL (0.2-1.0) Urinalysis Test 10/03/24 03:03 Urine Color Light-yellow (Yellow) Urine Clarity Turbid (Clear) H Urine pH 6.0 (5.0-9.0) Urine Specific [place] 1.017 (1.001-1.035) Urine Protein Negative (Negative) Urine Ketones Negative (Negative) Urine Blood Negative /uL (Negative) Urine Nitrite Negative (Negative) Urine Bilirubin Negative (Negative) Urine Urobilinogen Normal mg/dL (Negative) Urine Leukocyte Esterase 3+ /uL (Negative) Urine RBC 26 /hpf (0 - 4) Urine Microscopic WBC 147 /HPF (0-5) H Urine Squamous Epithelial Cells None seen /hpf (<5) Urine Bacteria Few /hpf (None Seen) H Urine Glucose Normal mg/dL (Normal) Microbiology Microbiology Date/Time Source Procedure Growth Status 10/03/24 04:32 Nose MRSA Screen - Final Complete Labs and/or images reviewed: Labs reviewed by me, Image(s) reviewed by me Assessment/Plan Assessment/Plan Acute generalized weakness Acute symptomatic anemia hemoglobin 6.8 improved to 8.6 after 1 unit RBC transfusion Sepsis secondary to urinary tract infection: Blood cultures urine cultures Acute urinary tract infection: Invanz 1 g IV daily, patient is allergic to penicillin and Cipro Sick sinus syndrome with a history of pacemaker Hypothyroidism DVT left upper extremity COPD exacerbation Hypertension RYDER Severe DJD left hip Obesity Time Spent 50 minutes Patient is full code Was On [facility], has two caregivers Plan discussed with: Patient My Orders Orders - SASHA STEELE MD Procedure Category Date Status Time Blood Culture ARON 10/03/24 In Process 12:56 Urine Bacterial ARON 10/03/24 In Process Culture 12:56 Ertapenem Sod Inj PHA 10/04/24 In Process (Invanz) 10:00 * Dietary Consult CONS 10/03/24 Transmitted 14:56 Cleanse Wound With MARGI 10/03/24 In Process Wound Clean 11:08 Date of Service: Oct 04, 2024 Billing Provider: SASHA STEELE MD Common Visit Codes: [id number] INP/OBS CARE(HIGH) SASHA STEELE MD Oct 04, 2024 12:54
[2024-10-04] MEDS: POTASSIUM CHL 20 Meq TABLET PO ONE (13:40)
[2024-10-05] VITALS (21 sets, daily range): BP systolic 135–157; BP diastolic 55–78; PULSE 64–68; RESP 14–19; TEMP 98.2–98.9; O2SAT 93–100
--- NOTE | 2024-10-05 08:06 | ECG ---
[facility] Test Date: 2024-10-02 Test Time: 10:34:06 Pat Name: RONALD LUCERO Department: ED Room: 0276 A Gender: F Contact Lens Technician: jermaine : 1945 Requested By: SHARRI SUMNER Order Number: [id number] Reading MD: Eulalio Ramos Measurements Intervals [place] Rate: 65 P: 0 NH: 236 QRS: 18 QRSD: 100 T: 62 QT: 424 QTc: 441 Interpretive Statements Atrial-paced rhythm Electronically Signed On 10-05-2024 18:39:24 PDT by Eulalio Ramos Please click the below link to view image of tracing.
--- NOTE | 2024-10-05 12:36 | DVHPN2 ---
Reviewed: Care Plan, H&P, Labs, Medications, Previous Orders, Radiology Changes from previous H/P or p: No Changes Respiratory: Shortness of breath Objective Vitals Vital Signs Date Time Temp Pulse Resp B/P (MAP) Pulse Ox O2 Delivery O2 Flow Rate FiO2 10/05/24 10:16 64 14 100 10/05/24 09:57 Nasal Cannula* 1 24 10/05/24 09:24 135/71 10/05/24 09:00 98.5 98.5 Intake/Output Intake and Output 10/05/24 07:00 Intake Total 300 ml Output Total 1250 ml Balance -950 ml Intake Oral 300 ml Output Urine Total 750 ml Other 500 ml Medications Current Medications Medications Dose Ordered Sig/Leonor Route Start Time Stop Time Status Last Admin Dose Admin Ondansetron HCl 4 mg Q4HP PRN IV 10/02/24 14:45 Acetaminophen 650 mg Q6HP PRN PO 10/02/24 14:45 Nitroglycerin 0.4 mg Q5MINP PRN SL 10/02/24 14:45 Morphine Sulfate 2 mg Q30M PRN IV 10/02/24 14:45 Amiodarone HCl 200 mg BID PO 10/02/24 22:00 10/05/24 09:22 200 MG Ascorbic Acid 500 mg DAILY PO 10/03/24 10:00 10/05/24 09:23 500 MG Cholecalciferol 1,000 unit DAILY PO 10/03/24 10:00 10/05/24 09:23 1,000 UNIT Patient Own Medication 1 tab DAILY PO 10/03/24 10:00 UNV Patient Own Medication 1 mg DAILY PO 10/03/24 10:00 UNV Patient Own Medication 75 mcg DAILY PO 10/03/24 10:00 UNV Patient Own Medication 1 tab DAILY PO 10/03/24 10:00 UNV Patient Own Medication 1 cap DAILY PO 10/03/24 10:00 UNV Pantoprazole Sodium 40 mg BID IV 10/02/24 22:00 10/04/24 21:16 40 MG Albuterol 2.5 mg Q4HWA NEB 10/02/24 18:00 10/05/24 10:06 2.5 MG Ipratropium [place] 0.5 mg Q4HWA NEB 10/02/24 18:00 10/05/24 10:07 0.5 MG Diagnostic Test (Pha) 1 strip ACHS 10/02/24 17:00 10/05/24 11:19 1 STRIP Insulin Human Regular ACHS SC 10/02/24 17:00 Dextrose 50 ml UD PRN IV 10/02/24 15:45 Ferrous Sulfate 325 mg DAILY PO 10/03/24 10:00 10/05/24 09:22 325 MG Folic Acid 1 mg DAILY PO 10/03/24 10:00 10/05/24 09:22 1 MG Levothyroxine Sodium 50 mcg QAM PO 10/03/24 07:00 10/05/24 06:01 50 MCG Levothyroxine Sodium 25 mcg QAM PO 10/03/24 07:00 10/05/24 06:01 25 MCG Metoprolol Succinate 25 mg DAILY PO 10/03/24 10:00 10/05/24 09:24 25 MG Pantoprazole Sodium 40 mg DAILY PO 10/03/24 10:00 10/05/24 09:22 40 MG Ertapenem 1 gm/ Sodium Chloride 50 ml @ 100 mls/hr DAILY IV 10/04/24 10:00 10/05/24 09:21 100 MLS/HR Laboratory Results Laboratory Tests 10/04/24 09:15 Urinalysis Test 10/03/24 03:03 Urine Color Light-yellow (Yellow) Urine Clarity Turbid (Clear) H Urine pH 6.0 (5.0-9.0) Urine Specific [place] 1.017 (1.001-1.035) Urine Protein Negative (Negative) Urine Ketones Negative (Negative) Urine Blood Negative /uL (Negative) Urine Nitrite Negative (Negative) Urine Bilirubin Negative (Negative) Urine Urobilinogen Normal mg/dL (Negative) Urine Leukocyte Esterase 3+ /uL (Negative) Urine RBC 26 /hpf (0 - 4) Urine Microscopic WBC 147 /HPF (0-5) H Urine Squamous Epithelial Cells None seen /hpf (<5) Urine Bacteria Few /hpf (None Seen) H Urine Glucose Normal mg/dL (Normal) Microbiology Microbiology Date/Time Source Procedure Growth Status 10/03/24 15:06 Blood Blood Culture - Preliminary NO GROWTH AFTER 24 HOURS OF INCUBATION. Resulted 10/03/24 04:32 Nose MRSA Screen - Final Complete 10/03/24 03:03 Voided Urine Urine Culture - Preliminary Resulted Labs and/or images reviewed: Labs reviewed by me, Image(s) reviewed by me Assessment/Plan Assessment/Plan Acute generalized weakness Acute symptomatic anemia hemoglobin 6.8 improved to 8.6 after 1 unit RBC transfusion Sepsis secondary to urinary tract infection: Blood cultures negative, urine cultures pending Acute urinary tract infection: Invanz 1 g IV daily, patient is allergic to penicillin and Cipro Sick sinus syndrome with a history of pacemaker Hypothyroidism DVT left upper extremity COPD exacerbation Hypertension RYDER Severe DJD left hip Obesity Time Spent 50 minutes Patient is full code Was On [facility], has two caregivers Plan discussed with: Patient My Orders Orders - SASHA STEELE MD Procedure Category Date Status Time Pt Request For Service PT 10/04/24 Logged 12:52 Date of Service: Oct 05, 2024 Billing Provider: SASHA STEELE MD Common Visit Codes: [id number] INP/OBS CARE(HIGH) SASHA STEELE MD Oct 05, 2024 12:36
[2024-10-05 23:07] LABS: Vitamin B1, Whole Blood 81.8 nmol/L (66.5-200.0)
[2024-10-06] VITALS (17 sets, daily range): BP systolic 133–155; BP diastolic 52–80; PULSE 54–68; RESP 16–20; TEMP 98.1–98.4; O2SAT 90–100
--- NOTE | 2024-10-06 10:40 | DVHPN2 ---
Reviewed: Care Plan, H&P, Labs, Medications, Previous Orders, Radiology Changes from previous H/P or p: No Changes Respiratory: Shortness of breath Objective Vitals Vital Signs Date Time Temp Pulse Resp B/P (MAP) Pulse Ox O2 Delivery O2 Flow Rate FiO2 10/06/24 09:42 65 20 100 10/06/24 09:36 Nasal Cannula 0.5 10/06/24 09:36 24 10/06/24 09:27 142/80 10/06/24 09:00 98.1 98.1 Intake/Output Intake and Output 10/06/24 07:00 Intake Total 450 ml Output Total 550 ml Balance -100 ml Intake Oral 400 ml IV Total 50 ml Output Urine Total 550 ml Medications Current Medications Medications Dose Ordered Sig/Leonor Route Start Time Stop Time Status Last Admin Dose Admin Ondansetron HCl 4 mg Q4HP PRN IV 10/02/24 14:45 Acetaminophen 650 mg Q6HP PRN PO 10/02/24 14:45 Nitroglycerin 0.4 mg Q5MINP PRN SL 10/02/24 14:45 Morphine Sulfate 2 mg Q30M PRN IV 10/02/24 14:45 Amiodarone HCl 200 mg BID PO 10/02/24 22:00 10/06/24 09:27 200 MG Ascorbic Acid 500 mg DAILY PO 10/03/24 10:00 10/06/24 09:27 500 MG Cholecalciferol 1,000 unit DAILY PO 10/03/24 10:00 10/06/24 09:28 1,000 UNIT Patient Own Medication 1 tab DAILY PO 10/03/24 10:00 UNV Patient Own Medication 1 mg DAILY PO 10/03/24 10:00 UNV Patient Own Medication 75 mcg DAILY PO 10/03/24 10:00 UNV Patient Own Medication 1 tab DAILY PO 10/03/24 10:00 UNV Patient Own Medication 1 cap DAILY PO 10/03/24 10:00 UNV Pantoprazole Sodium 40 mg BID IV 10/02/24 22:00 10/05/24 21:06 40 MG Albuterol 2.5 mg Q4HWA NEB 10/02/24 18:00 10/06/24 09:36 2.5 MG Ipratropium [place] 0.5 mg Q4HWA NEB 10/02/24 18:00 10/06/24 09:36 0.5 MG Diagnostic Test (Pha) 1 strip ACHS 10/02/24 17:00 10/06/24 06:20 1 STRIP Insulin Human Regular ACHS SC 10/02/24 17:00 Dextrose 50 ml UD PRN IV 10/02/24 15:45 Ferrous Sulfate 325 mg DAILY PO 10/03/24 10:00 10/06/24 09:27 325 MG Folic Acid 1 mg DAILY PO 10/03/24 10:00 10/06/24 09:27 1 MG Levothyroxine Sodium 50 mcg QAM PO 10/03/24 07:00 10/06/24 06:20 50 MCG Levothyroxine Sodium 25 mcg QAM PO 10/03/24 07:00 10/06/24 06:20 25 MCG Metoprolol Succinate 25 mg DAILY PO 10/03/24 10:00 10/06/24 09:27 25 MG Pantoprazole Sodium 40 mg DAILY PO 10/03/24 10:00 10/06/24 09:27 40 MG Ertapenem 1 gm/ Sodium Chloride 50 ml @ 100 mls/hr DAILY IV 10/04/24 10:00 10/06/24 09:28 100 MLS/HR Laboratory Results Laboratory Tests 10/04/24 09:15 Urinalysis Test 10/03/24 03:03 Urine Color Light-yellow (Yellow) Urine Clarity Turbid (Clear) H Urine pH 6.0 (5.0-9.0) Urine Specific [place] 1.017 (1.001-1.035) Urine Protein Negative (Negative) Urine Ketones Negative (Negative) Urine Blood Negative /uL (Negative) Urine Nitrite Negative (Negative) Urine Bilirubin Negative (Negative) Urine Urobilinogen Normal mg/dL (Negative) Urine Leukocyte Esterase 3+ /uL (Negative) Urine RBC 26 /hpf (0 - 4) Urine Microscopic WBC 147 /HPF (0-5) H Urine Squamous Epithelial Cells None seen /hpf (<5) Urine Bacteria Few /hpf (None Seen) H Urine Glucose Normal mg/dL (Normal) Microbiology Microbiology Date/Time Source Procedure Growth Status 10/03/24 15:06 Blood Blood Culture - Preliminary NO GROWTH AFTER 48 HOURS OF INCUBATION. Resulted 10/03/24 04:32 Nose MRSA Screen - Final Complete 10/03/24 03:03 Voided Urine Urine Culture - Preliminary Resulted Assessment/Plan Assessment/Plan Acute generalized weakness Acute symptomatic anemia hemoglobin 6.8 improved to 8.6 after 1 unit RBC transfusion Sepsis secondary to urinary tract infection: Blood cultures negative, urine cultures pending Acute urinary tract infection: Invanz 1 g IV daily, patient is allergic to penicillin and Cipro Sick sinus syndrome with a history of pacemaker Hypothyroidism DVT left upper extremity COPD exacerbation Hypertension RYDER Severe DJD left hip Obesity Time Spent 50 minutes Patient is full code Was On [facility], has two caregivers Plan discussed with: Patient, Other Date of Service: Oct 06, 2024 Billing Provider: SASHA STEELE MD Common Visit Codes: [id number] INP/OBS CARE(HIGH) SASHA STEELE MD Oct 06, 2024 10:40
[2024-10-06 19:06] LABS: Vitamin D-2 25-Hydroxy <1.0 ng/mL (.); Vitamin D-3 25-Hydroxy 35 ng/mL (.)
[2024-10-07] VITALS (19 sets, daily range): BP systolic 126–156; BP diastolic 49–76; PULSE 63–75; RESP 16–20; TEMP 97.4–98.7; O2SAT 95–100
--- NOTE | 2024-10-07 11:53 | DVHPN2 ---
Reviewed: Care Plan, H&P, Labs, Medications, Previous Orders, Radiology Changes from previous H/P or p: No Changes Respiratory: Shortness of breath Objective Vitals Vital Signs Date Time Temp Pulse Resp B/P (MAP) Pulse Ox O2 Delivery O2 Flow Rate FiO2 10/07/24 10:23 63 18 97 10/07/24 10:17 Room Air 0.0 10/07/24 10:17 21 10/07/24 09:36 126/71 10/07/24 08:44 98.4 98.4 Intake/Output Intake and Output 10/07/24 07:00 Intake Total 650 ml Output Total 500 ml Balance 150 ml Intake Oral 600 ml IV Total 50 ml Output Urine Total 500 ml # Bowel Movements 2 Medications Current Medications Medications Dose Ordered Sig/Leonor Route Start Time Stop Time Status Last Admin Dose Admin Ondansetron HCl 4 mg Q4HP PRN IV 10/02/24 14:45 Acetaminophen 650 mg Q6HP PRN PO 10/02/24 14:45 Nitroglycerin 0.4 mg Q5MINP PRN SL 10/02/24 14:45 Morphine Sulfate 2 mg Q30M PRN IV 10/02/24 14:45 Amiodarone HCl 200 mg BID PO 10/02/24 22:00 10/07/24 09:37 200 MG Ascorbic Acid 500 mg DAILY PO 10/03/24 10:00 10/07/24 09:35 500 MG Cholecalciferol 1,000 unit DAILY PO 10/03/24 10:00 10/07/24 09:35 1,000 UNIT Patient Own Medication 1 tab DAILY PO 10/03/24 10:00 UNV Patient Own Medication 1 mg DAILY PO 10/03/24 10:00 UNV Patient Own Medication 75 mcg DAILY PO 10/03/24 10:00 UNV Patient Own Medication 1 tab DAILY PO 10/03/24 10:00 UNV Patient Own Medication 1 cap DAILY PO 10/03/24 10:00 UNV Pantoprazole Sodium 40 mg BID IV 10/02/24 22:00 10/06/24 21:41 40 MG Albuterol 2.5 mg Q4HWA NEB 10/02/24 18:00 10/07/24 10:17 2.5 MG Ipratropium [place] 0.5 mg Q4HWA NEB 10/02/24 18:00 10/07/24 10:17 0.5 MG Diagnostic Test (Pha) 1 strip ACHS 10/02/24 17:00 10/07/24 11:31 1 STRIP Insulin Human Regular ACHS SC 10/02/24 17:00 Dextrose 50 ml UD PRN IV 10/02/24 15:45 Ferrous Sulfate 325 mg DAILY PO 10/03/24 10:00 10/07/24 09:35 325 MG Folic Acid 1 mg DAILY PO 10/03/24 10:00 10/07/24 09:36 1 MG Levothyroxine Sodium 50 mcg QAM PO 10/03/24 07:00 10/07/24 05:53 50 MCG Levothyroxine Sodium 25 mcg QAM PO 10/03/24 07:00 10/07/24 05:53 25 MCG Metoprolol Succinate 25 mg DAILY PO 10/03/24 10:00 10/07/24 09:36 25 MG Pantoprazole Sodium 40 mg DAILY PO 10/03/24 10:00 10/07/24 09:35 40 MG Ertapenem 1 gm/ Sodium Chloride 50 ml @ 100 mls/hr DAILY IV 10/04/24 10:00 10/07/24 09:37 100 MLS/HR Laboratory Results Laboratory Tests 10/04/24 09:15 Urinalysis Test 10/03/24 03:03 Urine Color Light-yellow (Yellow) Urine Clarity Turbid (Clear) H Urine pH 6.0 (5.0-9.0) Urine Specific [place] 1.017 (1.001-1.035) Urine Protein Negative (Negative) Urine Ketones Negative (Negative) Urine Blood Negative /uL (Negative) Urine Nitrite Negative (Negative) Urine Bilirubin Negative (Negative) Urine Urobilinogen Normal mg/dL (Negative) Urine Leukocyte Esterase 3+ /uL (Negative) Urine RBC 26 /hpf (0 - 4) Urine Microscopic WBC 147 /HPF (0-5) H Urine Squamous Epithelial Cells None seen /hpf (<5) Urine Bacteria Few /hpf (None Seen) H Urine Glucose Normal mg/dL (Normal) Microbiology Microbiology Date/Time Source Procedure Growth Status 10/03/24 15:06 Blood Blood Culture - Preliminary NO GROWTH AFTER 72 HOURS OF INCUBATION. Resulted 10/03/24 04:32 Nose MRSA Screen - Final Complete 10/03/24 03:03 Voided Urine Urine Culture - Final Klebsiella pneumoniae Complete Labs and/or images reviewed: Labs reviewed by me, Image(s) reviewed by me Assessment/Plan Assessment/Plan Acute generalized weakness Acute symptomatic anemia hemoglobin 6.8 improved to 8.6 after 1 unit RBC transfusion Sepsis secondary to urinary tract infection: Blood cultures negative, urine cultures Klebsiella pneumoniae continue Invanz 1 g IV daily Acute urinary tract infection: Sick sinus syndrome with a history of pacemaker Hypothyroidism DVT left upper extremity COPD exacerbation Hypertension RYDER Severe DJD left hip Obesity Time Spent 50 minutes Patient is full code Was On [facility], has two caregivers Plan discussed with: Patient Date of Service: Oct 07, 2024 Billing Provider: SASHA STEELE MD Common Visit Codes: [id number] INP/OBS CARE(HIGH) SASHA STEELE MD Oct 07, 2024 11:53
[2024-10-07] MEDS: ACETAMINOPHEN 325 MG TAB PO PRN (16:34)
[2024-10-07 19:07] LABS: Albumin 3.7 g/dL (3.2-4.8); Alkaline Phosphatase 105 U/L (46-116); Anion Gap 10 (5-15); BUN/Creatinine Ratio 23.4 (10.0-20.0); Bilirubin, Total 0.4 mg/dL (0.2-1.0); Blood Urea Nitrogen 15 mg/dL (9-23); Carbon Dioxide 21 mmol/L (20-31); Glucose 96 mg/dL (74-106); Potassium 4.0 mmol/L (3.5-5.1); Sodium 143 mmol/L (136-145); Total Protein 6.5 g/dL (5.7-8.2)
[2024-10-07 19:08] LABS: Alanine Aminotransferase 48 U/L (7-40); Calcium 10.7 mg/dL (8.7-10.4); Chloride 112 mmol/L (98-107)
[2024-10-07 19:20] LABS: Hematocrit 32.9 % (36.0-46.0); Hemoglobin 10.7 g/dL (12.2-16.2); Mean Corpuscular Hemoglobin 30.8 pg (28.0-32.0); Mean Corpuscular Volume 94.9 fL (80.0-100.0)
[2024-10-07 19:51] LABS: Anisocytosis Slight; Total Cells Counted 100.0 (100)
[2024-10-08] VITALS (20 sets, daily range): BP systolic 130–160; BP diastolic 44–83; PULSE 60–96; RESP 16–20; TEMP 97.8–99.1; O2SAT 91–100
--- NOTE | 2024-10-08 12:55 | DVHPN2 ---
Reviewed: Care Plan, H&P, Labs, Medications, Previous Orders, Radiology Changes from previous H/P or p: No Changes Respiratory: Shortness of breath Objective Vitals Vital Signs Date Time Temp Pulse Resp B/P (MAP) Pulse Ox O2 Delivery O2 Flow Rate FiO2 10/08/24 12:30 99.1 66 16 135/44 (74) 91 99.1 10/08/24 09:50 Room Air 10/08/24 09:50 0 21 Intake/Output Intake and Output 10/08/24 07:00 Intake Total 1750 ml Output Total 810 ml Balance 940 ml Intake Oral 1700 ml IV Total 50 ml Output Urine Total 810 ml Medications Current Medications Medications Dose Ordered Sig/Leonor Route Start Time Stop Time Status Last Admin Dose Admin Ondansetron HCl 4 mg Q4HP PRN IV 10/02/24 14:45 Acetaminophen 650 mg Q6HP PRN PO 10/02/24 14:45 10/07/24 16:34 650 MG Nitroglycerin 0.4 mg Q5MINP PRN SL 10/02/24 14:45 Morphine Sulfate 2 mg Q30M PRN IV 10/02/24 14:45 Amiodarone HCl 200 mg BID PO 10/02/24 22:00 10/08/24 09:19 200 MG Ascorbic Acid 500 mg DAILY PO 10/03/24 10:00 10/08/24 09:19 500 MG Cholecalciferol 1,000 unit DAILY PO 10/03/24 10:00 10/08/24 10:03 1,000 UNIT Patient Own Medication 1 tab DAILY PO 10/03/24 10:00 UNV Patient Own Medication 1 mg DAILY PO 10/03/24 10:00 UNV Patient Own Medication 75 mcg DAILY PO 10/03/24 10:00 UNV Patient Own Medication 1 tab DAILY PO 10/03/24 10:00 UNV Patient Own Medication 1 cap DAILY PO 10/03/24 10:00 UNV Pantoprazole Sodium 40 mg BID IV 10/02/24 22:00 10/08/24 09:18 40 MG Albuterol 2.5 mg Q4HWA NEB 10/02/24 18:00 10/08/24 09:50 2.5 MG Ipratropium [place] 0.5 mg Q4HWA NEB 10/02/24 18:00 10/08/24 09:50 0.5 MG Diagnostic Test (Pha) 1 strip ACHS 10/02/24 17:00 10/08/24 11:30 1 STRIP Insulin Human Regular ACHS SC 10/02/24 17:00 Dextrose 50 ml UD PRN IV 10/02/24 15:45 Ferrous Sulfate 325 mg DAILY PO 10/03/24 10:00 10/08/24 09:20 325 MG Folic Acid 1 mg DAILY PO 10/03/24 10:00 10/08/24 09:20 1 MG Levothyroxine Sodium 50 mcg QAM PO 10/03/24 07:00 10/08/24 05:32 50 MCG Levothyroxine Sodium 25 mcg QAM PO 10/03/24 07:00 10/08/24 05:32 25 MCG Metoprolol Succinate 25 mg DAILY PO 10/03/24 10:00 10/08/24 09:20 25 MG Pantoprazole Sodium 40 mg DAILY PO 10/03/24 10:00 10/07/24 09:35 40 MG Ertapenem 1 gm/ Sodium Chloride 50 ml @ 100 mls/hr DAILY IV 10/04/24 10:00 10/08/24 09:18 100 MLS/HR Laboratory Results Laboratory Tests 10/07/24 18:37 Chemistry Test 10/07/24 18:37 Albumin 3.7 g/dL (3.2-4.8) Calcium Level 10.7 mg/dL (8.7-10.4) H Total Protein 6.5 g/dL (5.7-8.2) LFT Test 10/07/24 18:37 Alanine Aminotransferase (ALT) 48 U/L (7-40) H Alkaline Phosphatase 105 U/L (46-116) Aspartate Amino Transferase (AST) 61 U/L (13-40) H Total Bilirubin 0.4 mg/dL (0.2-1.0) Urinalysis Test 10/03/24 03:03 Urine Color Light-yellow (Yellow) Urine Clarity Turbid (Clear) H Urine pH 6.0 (5.0-9.0) Urine Specific [place] 1.017 (1.001-1.035) Urine Protein Negative (Negative) Urine Ketones Negative (Negative) Urine Blood Negative /uL (Negative) Urine Nitrite Negative (Negative) Urine Bilirubin Negative (Negative) Urine Urobilinogen Normal mg/dL (Negative) Urine Leukocyte Esterase 3+ /uL (Negative) Urine RBC 26 /hpf (0 - 4) Urine Microscopic WBC 147 /HPF (0-5) H Urine Squamous Epithelial Cells None seen /hpf (<5) Urine Bacteria Few /hpf (None Seen) H Urine Glucose Normal mg/dL (Normal) Microbiology Microbiology Date/Time Source Procedure Growth Status 10/03/24 15:06 Blood Blood Culture - Preliminary NO GROWTH AFTER 72 HOURS OF INCUBATION. Resulted 10/03/24 04:32 Nose MRSA Screen - Final Complete 10/03/24 03:03 Voided Urine Urine Culture - Final Klebsiella pneumoniae Complete Labs and/or images reviewed: Labs reviewed by me, Image(s) reviewed by me Assessment/Plan Assessment/Plan Acute generalized weakness Acute symptomatic anemia hemoglobin 6.8 improved to 8.6 after 1 unit RBC transfusion Sepsis secondary to urinary tract infection: Blood cultures negative, urine cultures Klebsiella pneumoniae continue Invanz 1 g IV daily Acute urinary tract infection: Sick sinus syndrome with a history of pacemaker Hypothyroidism DVT left upper extremity COPD exacerbation Hypertension RYDER Severe DJD left hip Obesity Time Spent 50 minutes Patient is full [facility] Continue Invanz for complicated UTI Plan discussed with: Patient Date of Service: Oct 08, 2024 Billing Provider: SASHA STEELE MD Common Visit Codes: [id number] INP/OBS CARE(HIGH) SASHA STEELE MD Oct 08, 2024 12:55
[2024-10-08] MEDS: HYDROcodone-ACET 5/325MG TAB PO PRN (14:25)
[2024-10-09] VITALS (19 sets, daily range): BP systolic 116–166; BP diastolic 49–70; PULSE 64–70; RESP 16–20; TEMP 97.8–98.4; O2SAT 92–100
--- NOTE | 2024-10-09 12:07 | DVHPN2 ---
Reviewed: Care Plan, H&P, Labs, Medications, Previous Orders, Radiology Changes from previous H/P or p: No Changes General: Per HPI Respiratory: Shortness of breath Objective Vitals Vital Signs Date Time Temp Pulse Resp B/P (MAP) Pulse Ox O2 Delivery O2 Flow Rate FiO2 10/09/24 10:18 65 20 100 10/09/24 10:11 Room Air 0.0 10/09/24 10:11 21 10/09/24 09:52 140/53 10/09/24 09:00 97.8 97.8 Intake/Output Intake and Output 10/09/24 07:00 Intake Total 610 ml Output Total 620 ml Balance -10 ml Intake Oral 560 ml IV Total 50 ml Output Urine Total 620 ml Medications Current Medications Medications Dose Ordered Sig/Leonor Route Start Time Stop Time Status Last Admin Dose Admin Ondansetron HCl 4 mg Q4HP PRN IV 10/02/24 14:45 Acetaminophen 650 mg Q6HP PRN PO 10/02/24 14:45 10/07/24 16:34 650 MG Nitroglycerin 0.4 mg Q5MINP PRN SL 10/02/24 14:45 Morphine Sulfate 2 mg Q30M PRN IV 10/02/24 14:45 Amiodarone HCl 200 mg BID PO 10/02/24 22:00 10/09/24 09:53 200 MG Ascorbic Acid 500 mg DAILY PO 10/03/24 10:00 10/09/24 09:52 500 MG Cholecalciferol 1,000 unit DAILY PO 10/03/24 10:00 10/09/24 09:53 1,000 UNIT Patient Own Medication 1 tab DAILY PO 10/03/24 10:00 UNV Patient Own Medication 1 mg DAILY PO 10/03/24 10:00 UNV Patient Own Medication 75 mcg DAILY PO 10/03/24 10:00 UNV Patient Own Medication 1 tab DAILY PO 10/03/24 10:00 UNV Patient Own Medication 1 cap DAILY PO 10/03/24 10:00 UNV Pantoprazole Sodium 40 mg BID IV 10/02/24 22:00 10/09/24 09:50 40 MG Albuterol 2.5 mg Q4HWA NEB 10/02/24 18:00 10/09/24 10:11 2.5 MG Ipratropium [place] 0.5 mg Q4HWA NEB 10/02/24 18:00 10/09/24 10:11 0.5 MG Diagnostic Test (Pha) 1 strip ACHS 10/02/24 17:00 10/09/24 06:57 1 STRIP Insulin Human Regular ACHS SC 10/02/24 17:00 Dextrose 50 ml UD PRN IV 10/02/24 15:45 Ferrous Sulfate 325 mg DAILY PO 10/03/24 10:00 10/09/24 09:53 325 MG Folic Acid 1 mg DAILY PO 10/03/24 10:00 10/09/24 09:52 1 MG Levothyroxine Sodium 50 mcg QAM PO 10/03/24 07:00 10/09/24 06:53 50 MCG Levothyroxine Sodium 25 mcg QAM PO 10/03/24 07:00 10/09/24 06:53 25 MCG Metoprolol Succinate 25 mg DAILY PO 10/03/24 10:00 10/09/24 09:52 25 MG Pantoprazole Sodium 40 mg DAILY PO 10/03/24 10:00 Hold 10/07/24 09:35 40 MG Ertapenem 1 gm/ Sodium Chloride 50 ml @ 100 mls/hr DAILY IV 10/04/24 10:00 10/09/24 09:49 100 MLS/HR Acetaminophen/ Hydrocodone [place] 1 tab Q4HPRN PRN PO 10/08/24 13:00 10/09/24 06:59 1 TAB Laboratory Results Laboratory Tests 10/07/24 18:37 Urinalysis Test 10/03/24 03:03 Urine Color Light-yellow (Yellow) Urine Clarity Turbid (Clear) H Urine pH 6.0 (5.0-9.0) Urine Specific [place] 1.017 (1.001-1.035) Urine Protein Negative (Negative) Urine Ketones Negative (Negative) Urine Blood Negative /uL (Negative) Urine Nitrite Negative (Negative) Urine Bilirubin Negative (Negative) Urine Urobilinogen Normal mg/dL (Negative) Urine Leukocyte Esterase 3+ /uL (Negative) Urine RBC 26 /hpf (0 - 4) Urine Microscopic WBC 147 /HPF (0-5) H Urine Squamous Epithelial Cells None seen /hpf (<5) Urine Bacteria Few /hpf (None Seen) H Urine Glucose Normal mg/dL (Normal) Microbiology Microbiology Date/Time Source Procedure Growth Status 10/03/24 15:06 Blood Blood Culture - Final NO GROWTH AFTER 5 DAYS OF INCUBATION. Complete 10/03/24 04:32 Nose MRSA Screen - Final Complete 10/03/24 03:03 Voided Urine Urine Culture - Final Klebsiella pneumoniae Complete Assessment/Plan Assessment/Plan Acute generalized weakness Acute symptomatic anemia hemoglobin 6.8 improved to 8.6 after 1 unit RBC transfusion Sepsis secondary to urinary tract infection: Blood cultures negative, urine cultures Klebsiella pneumoniae continue Invanz 1 g IV daily Acute urinary tract infection: Sick sinus syndrome with a history of pacemaker Hypothyroidism DVT left upper extremity COPD exacerbation Hypertension RYDER Severe DJD left hip Obesity Time Spent >45 minutes in the coordination of care Plan discussed with: Other (nursing staff) Date of Service: Oct 09, 2024 Billing Provider: EUGENE HAILE DO Common Visit Codes: [id number] INP/OBS CARE(HIGH) EUGENE HAILE DO Oct 09, 2024 12:07
--- NOTE | 2024-10-09 17:25 | DVH ---
ABDOMEN, (KUB) ONE VIEW REASON FOR EXAM: LOWER BACK AND BILATERAL HIP PAIN COMPARISON: CT pelvis 09/02/2024 TECHNIQUE: A single view of the abdomen is obtained. FINDINGS: The bowel gas pattern is nonobstructive. Surgical clips project over the right upper quad rant, likely from prior cholecystectomy. There is extensive atherosclerosis. There is no supine evid ence of pneumoperitoneum. The colonic stool burden is overall small. No acute osseous abnormality is identified. There are degenerative changes at both hips. There is significant degenerative change in the visualized spine. IMPRESSION: Overall small colonic stool burden. Nonobstructive bowel gas pattern. Degenerative changes at both hips and in the visualized spine.
[2024-10-10] VITALS (17 sets, daily range): BP systolic 126–164; BP diastolic 53–83; PULSE 60–71; RESP 17–20; TEMP 97.5–98.1; O2SAT 93–100
[2024-10-10] MEDS: ACCU-CHEK COMFORT CURVE STRIP VI ONE ×2 (12:52→12:59)
[2024-10-10] MEDS: DEXTROSE (50%) 50ML SYRG IV ONE ×2 (12:58→13:25)
[2024-10-11] VITALS (19 sets, daily range): BP systolic 124–156; BP diastolic 52–90; PULSE 60–79; RESP 16–20; TEMP 97.9–98.5; O2SAT 91–100
--- NOTE | 2024-10-11 16:00 | DVHINCON2 ---
Date of service: Oct 10, [address] Gunter Reason for Consultation COPD management History of Present Illness History Source: Patient Exam Limitations: No limitations HPI Patient is a 79-year old lady with a history of COPD, CHF, hypertension and COPD who presented with pain and shortness of breath. Was seem in the emergency room where she was admitted for symptoms consistent with an acute exacerbation of COPD and pulmonology was consulted to assist in management. Home Meds Reported Medications Donepezil Hydrochloride (DONEPEZIL HCL) 10 Mg Tab, 1 TAB PO 10/02/24 Oyster Shell Calcium (Calcium Oyster Shell) 500 Mg Tab 10/02/24 Albuterol Sulfate (Albuterol Sulfate Hfa) 108 Mcg/Act Aer, 2 PUFF INH Q4HR for 50 Days, #54 07/14/24 Donepezil Hydrochloride (DONEPEZIL HCL) 5 Mg Tab, 1 TAB PO DAILY for 90 Days, #90 07/14/24 Docusate Sodium (Docusate Sodium) 100 Mg Cap, 1 CAP PO QHSP for 30 Days, #30 07/14/24 Ferrous Sulfate (Ferosul) 325 Mg Tab, 1 TAB PO DAILY for 90 Days, #90 07/14/24 Cetirizine HCl (Cetirizine Hydrochloride) 10 Mg Tab, 1 TAB PO DAILY for 90 Days, #90 07/14/24 Rivaroxaban (Xarelto Tablet) 20 Mg Tb, 1 TAB PO DAILY for 30 Days, #30 07/14/24 Omeprazole (Omeprazole Dr) 20 Mg Cap, 1 CAP PO DAILY for 90 Days, #90 07/14/24 Cholecalciferol (Gnp Vitamin D) 1,000 Unit Tab, 1 TAB PO DAILY for 30 Days, #30 07/14/24 Amiodarone HCl (Amiodarone HCl) 200 Mg Tab, 1 TAB PO BID 10/16/22 Metoprolol Succinate (Metoprolol Succinate Er) 25 Mg Tab, 1 TAB PO DAILY for 90 Days, #90 10/16/22 Ascorbic Acid (VITAMIN C TABLET) 500 Mg Tb, 500 MG PO DAILY 12/19/20 Folic Acid (Folic Acid) 1 Mg Tab, 1 MG PO DAILY for 30 Days, #30 02/26/20 Potassium Chloride (Klor-Con M20) 20 Meq Tab, 20 MEQ PO DAILY 12/31/11 Levothyroxine Sodium (Levothyroxine Sodium) 75 Mcg Tab, 75 MCG PO DAILY 12/31/11 Past Medical History Cardiac: HTN Pulmonary: COPD Central Nervous System: No pertinent Hx GI: No pertinent Hx Hemotology/Oncology: No pertinent Hx Hepatobiliary: No pertinent Hx Psychiatric: No pertinent Hx Musculoskeletal: No pertinent Hx Rheumotologic: No pertinent Hx Infectious Disease: No peritnent Hx ENT: No pertinent Hx Renal/: No pertinent Hx Endocrine: NIDDM Dermatology: No pertinent Hx Family History: Cancer, DM, Hypertension Patient Family History: Autoimmune disorder 19 CHILD Cancer G8 SISTER G8 SISTER Family history: Cardiovascular disease Family history: Diabetes mellitus Family history: Hypertension Stroke Smoker: Quit Alocohol: None Drugs: None Lives with: With family Domestic Violence: Neg Review of Systems Constitutional: No symptom reported Ears, Nose, & Throat: No symptom reported Eyes: No symptom reported Pulmonary/Respiratory: Dyspnea Cardiovascular: No symptom reported Gastrointestinal: No symptom reported Genitourinary: No symptom reported Musculoskeletal: No symptom reported Skin: No symptom reported Psychiatric: No symptom reported Endocrine: No symptom reported Hemotologic/Lymphatic: No symptom reported H&P Exam Vital Signs Vital Signs Date Time Temp Pulse Resp B/P (MAP) Pulse Ox O2 Delivery O2 Flow Rate FiO2 10/11/24 14:47 65 18 100 10/11/24 14:37 Room Air 10/11/24 14:37 0 21 10/11/24 13:00 97.9 153/65 (94) 97.9 General Appeara: Well developed, Well nourished, Normal Appearance Head Exam: Normal inspection Neck Exam: Normal inspection, Non-tender, Normal alignment Eye Exam: bilateral eye Normal inspection, bilateral eye PERRL, bilateral eye EOMI Ear Exam: bilateral ear Auricle normal, bilateral ear Canal normal, bilateral ear TM normal Nasal Exam: Normal inspection Mouth: Normal Inspection Pulmonary/Respiratory: Decreased breath sounds Cardiovascular/Chest: Normal inspection Peripheral Pulses: 4+ Radial (R), 4+ Radial (L), 4+ Brachial (R), 4+ Brachial (L) Abdominal Exam: Normal bowel sounds Labs/Xrays Labs Test 10/11/24 11:45 10/07/24 18:37 10/04/24 09:15 10/03/24 03:03 Range/Units POC Glucose 86 70-106 mg/dl White Blood Count 12.8 #H 4.4-10.8 10^3/uL Red Blood Count 3.47 L 4.0-5.20 10^6/uL Hemoglobin 10.7 #L 12.2-16.2 g/dL Hematocrit 32.9 #L 36.0-46.0 % Mean Corpuscular Volume 94.9 80.0-100.0 fL Mean Corpuscular Hemoglobin 30.8 28.0-32.0 pg Mean Corpuscular Hemoglobin Concent 32.4 32.0-36.0 g/dL Red Cell Distribution Width 19.1 H 11.8-14.3 % Platelet Count 291 140-450 10^3/uL Mean Platelet Volume 7.9 6.9-10.8 fL Neutrophils (%) (Auto) 37.0-80.0 % Lymphocytes (%) (Auto) 10.0-50.0 % Monocytes (%) (Auto) 0.0-12.0 % Basophils (%) (Auto) 0.0-2.0 % Neutrophils # (Auto) 1.6-8.6 10 ^3/uL Lymphocytes # (Auto) 0.4-5.4 10 ^3/uL Monocytes # (Auto) 0-1.3 10 ^3/uL Differential Total Cells Counted 100.0 100 Neutrophils % (Manual) 75 37.0-80.0 Band Neutrophils % (Manual) 0 Lymphocytes % (Manual) 16 10.0-50.0 Monocytes % (Manual) 7 0-12 Eosinophils % (Manual) 2 0-7 Basophils % (Manual) 0 0.0-2.0 Metamyelocytes % (manual) 0 Myelocytes % (Manual) 0 Promyelocytes % (Manual) 0 Blast Cells % (Manual) 0 Reactive Lymphocytes 0 Platelet Estimate Adequate Anisocytosis (manual) Slight Sodium Level 143 136-145 mmol/L Potassium Level 4.0 3.5-5.1 mmol/L Chloride Level 112 H 98-107 mmol/L Carbon Dioxide Level 21 20-31 mmol/L Anion Gap 10 5-15 Blood Urea Nitrogen 15 9-23 mg/dL Creatinine 0.64 0.550-1.02 mg/dL Glomerular Filtration Rate Calc 90 >90 mL/min BUN/Creatinine Ratio 23.4 H 10.0-20.0 Serum Glucose 96 74-106 mg/dL Calcium Level 10.7 H 8.7-10.4 mg/dL Total Bilirubin 0.4 0.2-1.0 mg/dL Aspartate Amino Transferase (AST) 61 H 13-40 U/L Alanine Aminotransferase (ALT) 48 H 7-40 U/L Alkaline Phosphatase 105 46-116 U/L Total Protein 6.5 5.7-8.2 g/dL Albumin 3.7 3.2-4.8 g/dL Eosinophils (%) (Auto) 0.9 0.0-7.0 % Eosinophils # (Auto) 0.1 0-0.8 10 ^3/uL Basophils # (Auto) 0.1 0-0.2 10 ^3/uL Nucleated Red Blood Cells 0.1 % Urine Color Light-yellow Yellow Urine Clarity Turbid H Clear Urine pH 6.0 5.0-9.0 Urine Specific [place] 1.017 1.001-1.035 Urine Protein Negative Negative Urine Ketones Negative Negative Urine Blood Negative Negative /uL Urine Nitrite Negative Negative Urine Bilirubin Negative Negative Urine Urobilinogen Normal Negative mg/dL Urine Leukocyte Esterase 3+ Negative /uL Urine RBC 26 0 - 4 /hpf Urine Microscopic WBC 147 H 0-5 /HPF Urine Squamous Epithelial Cells None seen <5 /hpf Urine Bacteria Few H None Seen /hpf Urine Glucose Normal Normal mg/dL Test 10/02/24 16:17 10/02/24 13:46 Range/Units Haptoglobin 203 42-346 mg/dL Troponin I High Sensitivity 8 </=34 ng/L Vitamin B1 Level 81.8 66.5-200.0 nmol/L Macrocytosis Slight Reticulocyte Count (auto) 4.69 H 0.5-1.5 % Hemoglobin A1c 4.4 <5.7 % A1C Iron Level 51 50-170 ug/dL Total Iron Binding Capacity 257 250-425 ug/dL Percent Iron Saturation 19.8 15-50 % B-Type Natriuretic Peptide 58.47 0-100 pg/mL CA 125 Antigen 10.3 0.0-38.1 U/mL Vitamin B12 Level 805 211-911 pg/mL Vitamin D 25-Hydroxy 35 . ng/mL 25-Hydroxy Vitamin D2 <1.0 . ng/mL 25-Hydroxy Vitamin D3 35 . ng/mL Microbiology Date/Time Source Procedure Growth Status 10/03/24 15:06 Blood Blood Culture - Final NO GROWTH AFTER 5 DAYS OF INCUBATION. Complete 10/03/24 04:32 Nose MRSA Screen - Final Complete 10/03/24 03:03 Voided Urine Urine Culture - Final Klebsiella pneumoniae Complete Assessment/Plan Plan Impression Acute hypoxemic respiratory failure Acute COPD exacerbation Hip pain CHF Patient seen and examined Events Low oxygen requirements On 2 liters nasal cannula Vital signs stable Labs and imaging reviewed Chest x-ray shows right apical pleural scarring Management Supplemental oxygen Titrate to maintain sats 90% or above Incentive spirometry Antibiotics Bronchodilators Steroids for COPD management Monitor renal function Monitor electrolytes Supplement as needed DVT prophylaxis Plan discussed with: Patient ALLYN BAUMANN MD Oct 11, 2024 16:00
--- NOTE | 2024-10-11 16:03 | DVHPN2 ---
Progress Note - Dictate Date Seen: Oct 11, 2024 Medical Necessity Reason Pt with a Central, PICC or Fol: Yes The following are medically ne: Oliveros Catheter vital signs Vital Sign Date Time Temp Pulse Resp B/P (MAP) Pulse Ox O2 Delivery O2 Flow Rate FiO2 10/11/24 14:47 65 18 100 10/11/24 14:37 Room Air 10/11/24 14:37 0 21 10/11/24 13:00 97.9 153/65 (94) 97.9 Total Intake and Output 10/10/24 10/10/24 10/11/24 15:00 23:00 07:00 Intake Total 60 ml 575 ml 400 ml Output Total 300 ml 200 ml Balance 60 ml 275 ml 200 ml medications Current Medications Medications Dose Ordered Sig/Leonor Route Start Time Stop Time Status Last Admin Dose Admin Ondansetron HCl 4 mg Q4HP PRN IV 10/02/24 14:45 Acetaminophen 650 mg Q6HP PRN PO 10/02/24 14:45 10/07/24 16:34 650 MG Nitroglycerin 0.4 mg Q5MINP PRN SL 10/02/24 14:45 Morphine Sulfate 2 mg Q30M PRN IV 10/02/24 14:45 Amiodarone HCl 200 mg BID PO 10/02/24 22:00 10/11/24 11:06 200 MG Ascorbic Acid 500 mg DAILY PO 10/03/24 10:00 10/11/24 11:03 500 MG Cholecalciferol 1,000 unit DAILY PO 10/03/24 10:00 10/11/24 11:03 1,000 UNIT Patient Own Medication 1 tab DAILY PO 10/03/24 10:00 UNV Patient Own Medication 1 mg DAILY PO 10/03/24 10:00 UNV Patient Own Medication 75 mcg DAILY PO 10/03/24 10:00 UNV Patient Own Medication 1 tab DAILY PO 10/03/24 10:00 UNV Patient Own Medication 1 cap DAILY PO 10/03/24 10:00 UNV Pantoprazole Sodium 40 mg BID IV 10/02/24 22:00 10/11/24 11:03 40 MG Albuterol 2.5 mg Q4HWA NEB 10/02/24 18:00 10/11/24 14:36 2.5 MG Ipratropium [place] 0.5 mg Q4HWA NEB 10/02/24 18:00 10/11/24 14:37 0.5 MG Diagnostic Test (Pha) 1 strip ACHS 10/02/24 17:00 10/11/24 11:49 1 STRIP Insulin Human Regular ACHS SC 10/02/24 17:00 Dextrose 50 ml UD PRN IV 10/02/24 15:45 Ferrous Sulfate 325 mg DAILY PO 10/03/24 10:00 10/11/24 11:03 325 MG Folic Acid 1 mg DAILY PO 10/03/24 10:00 10/11/24 11:04 1 MG Levothyroxine Sodium 50 mcg QAM PO 10/03/24 07:00 10/11/24 06:28 50 MCG Levothyroxine Sodium 25 mcg QAM PO 10/03/24 07:00 10/11/24 06:28 25 MCG Metoprolol Succinate 25 mg DAILY PO 10/03/24 10:00 10/11/24 11:06 25 MG Pantoprazole Sodium 40 mg DAILY PO 10/03/24 10:00 Hold 10/07/24 09:35 40 MG Ertapenem 1 gm/ Sodium Chloride 50 ml @ 100 mls/hr DAILY IV 10/04/24 10:00 10/11/24 11:02 100 MLS/HR Acetaminophen/ Hydrocodone Bitart 1 tab Q4HPRN PRN PO 10/08/24 13:00 10/11/24 14:35 1 TAB laboratory and microbiology Laboratory Tests 10/07/24 18:37 Test 10/07/24 18:37 Range/Units Serum Glucose 96 74-106 mg/dL Assessment/Plan Impression Acute hypoxemic respiratory failure Acute COPD exacerbation Hip pain CHF Patient seen and examined Events Low oxygen requirements On room air Complaining of right hip pain, denies recent falls or trauma Urine culture growing Klebsiella pneumoniae Labs and imaging reviewed Chest x-ray shows right apical pleural scarring Management Supplemental oxygen as needed Titrate to maintain sats 90% or above Incentive spirometry Continue antibiotics F/u cultures Bronchodilators Steroids for COPD management Monitor renal function Monitor electrolytes Supplement as needed DVT prophylaxis Dietary Evaluation Review Comments: 1) Dieudonne 1 pk BID 2) Vit C 500mg BID, Zinc sulfate 220 mg BID x 10 days, MVI with minerals 1 tab daily 3) Glucerna 240ml BID 4) Monitor PO intake, lab values, I/O Expected Outcomes/Goals: pressure ulcer to improve intake to meet >75% estimated needs FU 3-5 days Interpretation of weight loss: up to 7.5% in 3 months Fluid Accumulation (Non Severe: Mild fluid retention Protein Calorie Malnutrition: Non-Severe Is there a minimum of two crit: Yes Plan discussed with: Patient Capillary Refill: < 3 seconds CC Plasma Assessment Blood Product Administration S: 1700 ALLYN BAUMANN MD Oct 11, 2024 16:03
[2024-10-12] VITALS (19 sets, daily range): BP systolic 129–151; BP diastolic 53–72; PULSE 65–66; RESP 15–18; TEMP 97.5–98.5; O2SAT 91–100
--- NOTE | 2024-10-12 12:47 | DVHPN2 ---
Progress Note - Dictate Date Seen: Oct 12, 2024 Medical Necessity Reason Pt with a Central, PICC or Fol: Yes The following are medically ne: Oliveros Catheter vital signs Vital Sign Date Time Temp Pulse Resp B/P (MAP) Pulse Ox O2 Delivery O2 Flow Rate FiO2 10/12/24 10:32 91 Room Air 0.0 10/12/24 10:32 21 10/12/24 10:32 66 16 10/12/24 09:22 151/72 10/12/24 09:00 97.5 97.5 Total Intake and Output 10/11/24 10/11/24 10/12/24 15:00 23:00 07:00 Intake Total 360 ml 400 ml 450 ml Output Total 150 ml 550 ml Balance 360 ml 250 ml -100 ml medications Current Medications Medications Dose Ordered Sig/Leonor Route Start Time Stop Time Status Last Admin Dose Admin Ondansetron HCl 4 mg Q4HP PRN IV 10/02/24 14:45 Acetaminophen 650 mg Q6HP PRN PO 10/02/24 14:45 10/12/24 09:21 650 MG Nitroglycerin 0.4 mg Q5MINP PRN SL 10/02/24 14:45 Amiodarone HCl 200 mg BID PO 10/02/24 22:00 10/12/24 09:20 200 MG Ascorbic Acid 500 mg DAILY PO 10/03/24 10:00 10/12/24 09:21 500 MG Cholecalciferol 1,000 unit DAILY PO 10/03/24 10:00 10/12/24 11:31 1,000 UNIT Patient Own Medication 1 tab DAILY PO 10/03/24 10:00 UNV Patient Own Medication 1 mg DAILY PO 10/03/24 10:00 UNV Patient Own Medication 75 mcg DAILY PO 10/03/24 10:00 UNV Patient Own Medication 1 tab DAILY PO 10/03/24 10:00 UNV Patient Own Medication 1 cap DAILY PO 10/03/24 10:00 UNV Pantoprazole Sodium 40 mg BID IV 10/02/24 22:00 10/12/24 09:20 40 MG Albuterol 2.5 mg Q4HWA NEB 10/02/24 18:00 10/12/24 10:32 2.5 MG Ipratropium [place] 0.5 mg Q4HWA NEB 10/02/24 18:00 10/12/24 10:32 0.5 MG Diagnostic Test (Pha) 1 strip ACHS 10/02/24 17:00 10/12/24 11:32 1 STRIP Insulin Human Regular ACHS SC 10/02/24 17:00 Dextrose 50 ml UD PRN IV 10/02/24 15:45 Ferrous Sulfate 325 mg DAILY PO 10/03/24 10:00 10/12/24 09:21 325 MG Folic Acid 1 mg DAILY PO 10/03/24 10:00 10/12/24 09:20 1 MG Levothyroxine Sodium 50 mcg QAM PO 10/03/24 07:00 10/12/24 06:03 50 MCG Levothyroxine Sodium 25 mcg QAM PO 10/03/24 07:00 10/12/24 06:03 25 MCG Metoprolol Succinate 25 mg DAILY PO 10/03/24 10:00 10/12/24 09:22 25 MG Pantoprazole Sodium 40 mg DAILY PO 10/03/24 10:00 Hold 10/07/24 09:35 40 MG Ertapenem 1 gm/ Sodium Chloride 50 ml @ 100 mls/hr DAILY IV 10/04/24 10:00 10/12/24 09:19 100 MLS/HR Acetaminophen/ Hydrocodone Bitart 1 tab Q4HPRN PRN PO 10/08/24 13:00 10/11/24 21:32 1 TAB laboratory and microbiology Laboratory Tests 10/07/24 18:37 Test 10/07/24 18:37 Range/Units Serum Glucose 96 74-106 mg/dL Assessment/Plan Impression Acute hypoxemic respiratory failure Acute COPD exacerbation Hip pain CHF Patient seen and examined Events Low oxygen requirements On room air no new complaints Urine culture growing Klebsiella pneumoniae Labs and imaging reviewed Chest x-ray shows right apical pleural scarring Management Supplemental oxygen as needed Titrate to maintain sats 90% or above Incentive spirometry Continue antibiotics F/u cultures Bronchodilators Steroids for COPD management Monitor renal function Monitor electrolytes Supplement as needed DVT prophylaxis Dietary Evaluation Review Comments: 1) Dieudonne 1 pk BID 2) Vit C 500mg BID, Zinc sulfate 220 mg BID x 10 days, MVI with minerals 1 tab daily 3) Glucerna 240ml BID 4) Monitor PO intake, lab values, I/O Expected Outcomes/Goals: pressure ulcer to improve intake to meet >75% estimated needs FU 3-5 days Interpretation of weight loss: up to 7.5% in 3 months Fluid Accumulation (Non Severe: Mild fluid retention Protein Calorie Malnutrition: Non-Severe Is there a minimum of two crit: Yes Plan discussed with: Patient Capillary Refill: < 3 seconds CC Plasma Assessment Blood Product Administration S: 1700 ALLYN BAUMANN MD Oct 12, 2024 12:47
[2024-10-13] VITALS (19 sets, daily range): BP systolic 104–141; BP diastolic 41–72; PULSE 61–76; RESP 14–20; TEMP 97.4–98.3; O2SAT 94–100
--- NOTE | 2024-10-13 13:48 | DVHPN2 ---
Progress Note - Dictate Date Seen: Oct 13, 2024 Medical Necessity Reason Pt with a Central, PICC or Fol: Yes The following are medically ne: Oliveros Catheter vital signs Vital Sign Date Time Temp Pulse Resp B/P (MAP) Pulse Ox O2 Delivery O2 Flow Rate FiO2 10/13/24 12:31 98.3 66 14 130/57 (81) 98 98.3 10/13/24 11:23 Room Air 0.0 10/13/24 11:23 21 Total Intake and Output 10/12/24 10/12/24 10/13/24 15:00 23:00 07:00 Intake Total 230 ml 800 ml 200 ml Output Total 250 ml Balance 230 ml 550 ml 200 ml medications Current Medications Medications Dose Ordered Sig/Leonor Route Start Time Stop Time Status Last Admin Dose Admin Ondansetron HCl 4 mg Q4HP PRN IV 10/02/24 14:45 Acetaminophen 650 mg Q6HP PRN PO 10/02/24 14:45 10/12/24 09:21 650 MG Nitroglycerin 0.4 mg Q5MINP PRN SL 10/02/24 14:45 Amiodarone HCl 200 mg BID PO 10/02/24 22:00 10/13/24 10:08 200 MG Ascorbic Acid 500 mg DAILY PO 10/03/24 10:00 10/13/24 10:08 500 MG Cholecalciferol 1,000 unit DAILY PO 10/03/24 10:00 10/13/24 10:08 1,000 UNIT Patient Own Medication 1 tab DAILY PO 10/03/24 10:00 UNV Patient Own Medication 1 mg DAILY PO 10/03/24 10:00 UNV Patient Own Medication 75 mcg DAILY PO 10/03/24 10:00 UNV Patient Own Medication 1 tab DAILY PO 10/03/24 10:00 UNV Patient Own Medication 1 cap DAILY PO 10/03/24 10:00 UNV Pantoprazole Sodium 40 mg BID IV 10/02/24 22:00 10/13/24 10:08 40 MG Albuterol 2.5 mg Q4HWA NEB 10/02/24 18:00 10/13/24 11:23 2.5 MG Ipratropium [place] 0.5 mg Q4HWA NEB 10/02/24 18:00 10/13/24 11:23 0.5 MG Diagnostic Test (Pha) 1 strip ACHS 7/11/25 17:00 10/13/24 11:30 1 STRIP Insulin Human Regular ACHS SC 10/02/24 17:00 Dextrose 50 ml UD PRN IV 10/02/24 15:45 Ferrous Sulfate 325 mg DAILY PO 10/03/24 10:00 10/13/24 10:08 325 MG Folic Acid 1 mg DAILY PO 10/03/24 10:00 10/13/24 10:08 1 MG Levothyroxine Sodium 50 mcg QAM PO 10/03/24 07:00 10/13/24 05:59 50 MCG Levothyroxine Sodium 25 mcg QAM PO 10/03/24 07:00 10/13/24 05:59 25 MCG Metoprolol Succinate 25 mg DAILY PO 10/03/24 10:00 10/13/24 10:09 25 MG Pantoprazole Sodium 40 mg DAILY PO 10/03/24 10:00 Hold 10/07/24 09:35 40 MG Ertapenem 1 gm/ Sodium Chloride 50 ml @ 100 mls/hr DAILY IV 10/04/24 10:00 10/13/24 10:08 100 MLS/HR Acetaminophen/ Hydrocodone Bitart 1 tab Q4HPRN PRN PO 10/08/24 13:00 10/13/24 12:01 1 TAB laboratory and microbiology Laboratory Tests 10/07/24 18:37 Test 10/07/24 18:37 Range/Units Serum Glucose 96 74-106 mg/dL Assessment/Plan Impression Acute hypoxemic respiratory failure Acute COPD exacerbation Hip pain CHF Patient seen and examined Events Low oxygen requirements On room air No acute events Urine culture growing Klebsiella pneumoniae Labs and imaging reviewed Chest x-ray shows right apical pleural scarring Management Supplemental oxygen as needed Titrate to maintain sats 90% or above Incentive spirometry Continue antibiotics F/u cultures Bronchodilators Steroids for COPD management Monitor renal function Monitor electrolytes Supplement as needed Disposition per primary DVT prophylaxis Dietary Evaluation Review Comments: 1) Dieudonne 1 pk BID 2) Vit C 500mg BID, Zinc sulfate 220 mg BID x 10 days, MVI with minerals 1 tab daily 3) Glucerna 240ml BID 4) Monitor PO intake, lab values, I/O Expected Outcomes/Goals: pressure ulcer to improve intake to meet >75% estimated needs FU 3-5 days Interpretation of weight loss: up to 7.5% in 3 months Fluid Accumulation (Non Severe: Mild fluid retention Protein Calorie Malnutrition: Non-Severe Is there a minimum of two crit: Yes Plan discussed with: Patient Capillary Refill: < 3 seconds CC Plasma Assessment Blood Product Administration S: 1700 ALLYN BAUMANN MD Oct 13, 2024 13:48
--- NOTE | 2024-10-13 15:05 | DVHPN2 ---
Reviewed: Care Plan, H&P, Labs, Medications, Previous Orders, Radiology Changes from previous H/P or p: No Changes General: Per HPI Respiratory: Shortness of breath Objective Vitals Vital Signs Date Time Temp Pulse Resp B/P (MAP) Pulse Ox O2 Delivery O2 Flow Rate FiO2 10/13/24 14:31 67 18 100 10/13/24 14:25 Room Air* 0 21 10/13/24 12:31 98.3 130/57 (81) 98.3 Intake/Output Intake and Output 10/13/24 07:00 Intake Total 1230 ml Output Total 250 ml Balance 980 ml Intake Oral 1230 ml Output Urine Total 250 ml # Voids 2 Medications Current Medications Medications Dose Ordered Sig/Leonor Route Start Time Stop Time Status Last Admin Dose Admin Ondansetron HCl 4 mg Q4HP PRN IV 10/02/24 14:45 Acetaminophen 650 mg Q6HP PRN PO 10/02/24 14:45 10/12/24 09:21 650 MG Nitroglycerin 0.4 mg Q5MINP PRN SL 10/02/24 14:45 Amiodarone HCl 200 mg BID PO 10/02/24 22:00 10/13/24 10:08 200 MG Ascorbic Acid 500 mg DAILY PO 10/03/24 10:00 10/13/24 10:08 500 MG Cholecalciferol 1,000 unit DAILY PO 10/03/24 10:00 10/13/24 10:08 1,000 UNIT Patient Own Medication 1 tab DAILY PO 10/03/24 10:00 UNV Patient Own Medication 1 mg DAILY PO 10/03/24 10:00 UNV Patient Own Medication 75 mcg DAILY PO 10/03/24 10:00 UNV Patient Own Medication 1 tab DAILY PO 10/03/24 10:00 UNV Patient Own Medication 1 cap DAILY PO 10/03/24 10:00 UNV Pantoprazole Sodium 40 mg BID IV 10/02/24 22:00 10/13/24 10:08 40 MG Albuterol 2.5 mg Q4HWA NEB 10/02/24 18:00 10/13/24 14:57 2.5 MG Ipratropium [place] 0.5 mg Q4HWA NEB 10/02/24 18:00 10/13/24 14:57 0.5 MG Diagnostic Test (Pha) 1 strip ACHS 10/02/24 17:00 10/13/24 11:30 1 STRIP Insulin Human Regular ACHS SC 10/02/24 17:00 Dextrose 50 ml UD PRN IV 10/02/24 15:45 Ferrous Sulfate 325 mg DAILY PO 10/03/24 10:00 10/13/24 10:08 325 MG Folic Acid 1 mg DAILY PO 10/03/24 10:00 10/13/24 10:08 1 MG Levothyroxine Sodium 50 mcg QAM PO 10/03/24 07:00 10/13/24 05:59 50 MCG Levothyroxine Sodium 25 mcg QAM PO 10/03/24 07:00 10/13/24 05:59 25 MCG Metoprolol Succinate 25 mg DAILY PO 10/03/24 10:00 10/13/24 10:09 25 MG Pantoprazole Sodium 40 mg DAILY PO 10/03/24 10:00 Hold 10/07/24 09:35 40 MG Ertapenem 1 gm/ Sodium Chloride 50 ml @ 100 mls/hr DAILY IV 10/04/24 10:00 10/13/24 10:08 100 MLS/HR Acetaminophen/ Hydrocodone Bitart 1 tab Q4HPRN PRN PO 10/08/24 13:00 10/13/24 12:01 1 TAB Laboratory Results Laboratory Tests 10/07/24 18:37 Urinalysis Test 10/03/24 03:03 Urine Color Light-yellow (Yellow) Urine Clarity Turbid (Clear) H Urine pH 6.0 (5.0-9.0) Urine Specific [place] 1.017 (1.001-1.035) Urine Protein Negative (Negative) Urine Ketones Negative (Negative) Urine Blood Negative /uL (Negative) Urine Nitrite Negative (Negative) Urine Bilirubin Negative (Negative) Urine Urobilinogen Normal mg/dL (Negative) Urine Leukocyte Esterase 3+ /uL (Negative) Urine RBC 26 /hpf (0 - 4) Urine Microscopic WBC 147 /HPF (0-5) H Urine Squamous Epithelial Cells None seen /hpf (<5) Urine Bacteria Few /hpf (None Seen) H Urine Glucose Normal mg/dL (Normal) Microbiology Microbiology Date/Time Source Procedure Growth Status 10/03/24 15:06 Blood Blood Culture - Final NO GROWTH AFTER 5 DAYS OF INCUBATION. Complete 10/03/24 04:32 Nose MRSA Screen - Final Complete 10/03/24 03:03 Voided Urine Urine Culture - Final Klebsiella pneumoniae Complete Assessment/Plan Assessment/Plan Acute generalized weakness Acute symptomatic anemia hemoglobin 6.8 improved to 8.6 after 1 unit RBC transfusion Sepsis secondary to urinary tract infection: Blood cultures negative, urine cultures Klebsiella pneumoniae continue Invanz 1 g IV daily Acute urinary tract infection: Sick sinus syndrome with a history of pacemaker Hypothyroidism DVT left upper extremity COPD exacerbation Hypertension RYDER Severe DJD left hip Obesity Time Spent 50 minutes Patient is full code Was On [facility], has two caregivers Plan discussed with: Patient Date of Service: Oct 10, 2024 Billing Provider: EUGENE HAILE DO Common Visit Codes: [id number] INP/OBS CARE(HIGH) EUGENE HAILE DO Oct 13, 2024 15:05
[2024-10-14] VITALS (15 sets, daily range): BP systolic 131–166; BP diastolic 54–66; PULSE 60–71; RESP 16–19; TEMP 36.7; O2SAT 92–100
--- NOTE | 2024-10-14 13:49 | DVHPN2 ---
Progress Note - Dictate Date Seen: Oct 14, 2024 Medical Necessity Reason Pt with a Central, PICC or Fol: Yes The following are medically ne: Oliveros Catheter vital signs Vital Sign Date Time Temp Pulse Resp B/P (MAP) Pulse Ox O2 Delivery O2 Flow Rate FiO2 10/14/24 13:19 36.7 63 19 98 10/14/24 10:00 Room Air* 0 21 10/14/24 09:38 157/62 Total Intake and Output 10/13/24 10/13/24 10/14/24 15:00 23:00 07:00 Intake Total 50 ml 355 ml 200 ml Output Total 200 ml 300 ml Balance 50 ml 155 ml -100 ml medications Current Medications Medications Dose Ordered Sig/Leonor Route Start Time Stop Time Status Last Admin Dose Admin Ondansetron HCl 4 mg Q4HP PRN IV 10/02/24 14:45 Acetaminophen 650 mg Q6HP PRN PO 10/02/24 14:45 10/12/24 09:21 650 MG Nitroglycerin 0.4 mg Q5MINP PRN SL 10/02/24 14:45 Amiodarone HCl 200 mg BID PO 10/02/24 22:00 10/14/24 09:38 200 MG Ascorbic Acid 500 mg DAILY PO 10/03/24 10:00 10/14/24 09:37 500 MG Cholecalciferol 1,000 unit DAILY PO 10/03/24 10:00 10/14/24 09:37 1,000 UNIT Patient Own Medication 1 tab DAILY PO 10/03/24 10:00 UNV Patient Own Medication 1 mg DAILY PO 10/03/24 10:00 UNV Patient Own Medication 75 mcg DAILY PO 10/03/24 10:00 UNV Patient Own Medication 1 tab DAILY PO 10/03/24 10:00 UNV Patient Own Medication 1 cap DAILY PO 10/03/24 10:00 UNV Pantoprazole Sodium 40 mg BID IV 10/02/24 22:00 10/13/24 21:41 40 MG Albuterol 2.5 mg Q4HWA NEB 10/02/24 18:00 10/14/24 09:09 2.5 MG Ipratropium [place] 0.5 mg Q4HWA NEB 10/02/24 18:00 10/14/24 09:09 0.5 MG Diagnostic Test (Pha) 1 strip ACHS 10/02/24 17:00 10/14/24 12:00 1 STRIP Insulin Human Regular ACHS SC 10/02/24 17:00 Dextrose 50 ml UD PRN IV 10/02/24 15:45 Ferrous Sulfate 325 mg DAILY PO 10/03/24 10:00 10/14/24 09:38 325 MG Folic Acid 1 mg DAILY PO 10/03/24 10:00 10/14/24 09:38 1 MG Levothyroxine Sodium 50 mcg QAM PO 10/03/24 07:00 10/14/24 06:15 50 MCG Levothyroxine Sodium 25 mcg QAM PO 10/03/24 07:00 10/14/24 06:16 25 MCG Metoprolol Succinate 25 mg DAILY PO 10/03/24 10:00 10/14/24 09:38 25 MG Pantoprazole Sodium 40 mg DAILY PO 10/03/24 10:00 Hold 10/07/24 09:35 40 MG Ertapenem 1 gm/ Sodium Chloride 50 ml @ 100 mls/hr DAILY IV 10/04/24 10:00 10/13/24 10:08 100 MLS/HR Acetaminophen/ Hydrocodone Bitart 1 tab Q4HPRN PRN PO 10/08/24 13:00 10/14/24 12:06 1 TAB laboratory and microbiology Laboratory Tests 10/07/24 18:37 Test 10/07/24 18:37 Range/Units Serum Glucose 96 74-106 mg/dL Assessment/Plan Impression Acute hypoxemic respiratory failure Acute COPD exacerbation Hip pain CHF Patient seen and examined Events Low oxygen requirements On room air No distress Labs and imaging reviewed Management Supplemental oxygen as needed Titrate to maintain sats 90% or above Incentive spirometry Continue antibiotics F/u cultures Bronchodilators Steroids for COPD management Monitor renal function Monitor electrolytes Supplement as needed Disposition per primary DVT prophylaxis Dietary Evaluation Review Comments: 1) Dieudonne 1 pk BID 2) Vit C 500mg BID, Zinc sulfate 220 mg BID x 10 days, MVI with minerals 1 tab daily 3) Glucerna 240ml BID 4) Monitor PO intake, lab values, I/O Expected Outcomes/Goals: pressure ulcer to improve intake to meet >75% estimated needs FU 3-5 days Interpretation of weight loss: up to 7.5% in 3 months Fluid Accumulation (Non Severe: Mild fluid retention Protein Calorie Malnutrition: Non-Severe Is there a minimum of two crit: Yes Plan discussed with: Patient Capillary Refill: < 3 seconds CC Plasma Assessment Blood Product Administration S: [id number] ALLYN BAUMANN MD Oct 14, 2024 13:49
--- NOTE | 2024-10-19 08:55 | DVHPN2 ---
Reviewed: Care Plan, H&P, Labs, Medications, Previous Orders, Radiology Changes from previous H/P or p: No Changes General: Per HPI Respiratory: Shortness of breath Objective Medications Current Medications Medications Dose Ordered Sig/Leonor Route Start Time Stop Time Status Last Admin Dose Admin Patient Own Medication 1 tab DAILY PO 10/03/24 10:00 UNV Patient Own Medication 1 mg DAILY PO 10/03/24 10:00 UNV Patient Own Medication 75 mcg DAILY PO 10/03/24 10:00 UNV Patient Own Medication 1 tab DAILY PO 10/03/24 10:00 UNV Patient Own Medication 1 cap DAILY PO 10/03/24 10:00 UNV Laboratory Results Laboratory Tests 10/07/24 18:37 Urinalysis Test 10/03/24 03:03 Urine Color Light-yellow (Yellow) Urine Clarity Turbid (Clear) H Urine pH 6.0 (5.0-9.0) Urine Specific [place] 1.017 (1.001-1.035) Urine Protein Negative (Negative) Urine Ketones Negative (Negative) Urine Blood Negative /uL (Negative) Urine Nitrite Negative (Negative) Urine Bilirubin Negative (Negative) Urine Urobilinogen Normal mg/dL (Negative) Urine Leukocyte Esterase 3+ /uL (Negative) Urine RBC 26 /hpf (0 - 4) Urine Microscopic WBC 147 /HPF (0-5) H Urine Squamous Epithelial Cells None seen /hpf (<5) Urine Bacteria Few /hpf (None Seen) H Urine Glucose Normal mg/dL (Normal) Microbiology Microbiology Date/Time Source Procedure Growth Status 10/03/24 15:06 Blood Blood Culture - Final NO GROWTH AFTER 5 DAYS OF INCUBATION. Complete 10/03/24 04:32 Nose MRSA Screen - Final Complete 10/03/24 03:03 Voided Urine Urine Culture - Final Klebsiella pneumoniae Complete Assessment/Plan Assessment/Plan Acute generalized weakness Acute symptomatic anemia hemoglobin 6.8 improved to 8.6 after 1 unit RBC transfusion Sepsis secondary to urinary tract infection: Blood cultures negative, urine cultures Klebsiella pneumoniae continue Invanz 1 g IV daily Acute urinary tract infection: Sick sinus syndrome with a history of pacemaker Hypothyroidism DVT left upper extremity COPD exacerbation Hypertension RYDER Severe DJD left hip Obesity weakness: needs PT to evaluate encephalopathy: metabolic due to UTI infection Time Spent >45 minutes in the coordination of care Plan discussed with: Patient Date of Service: Oct 11, 2024 Billing Provider: EUGENE HAILE DO Common Visit Codes: [id number] INP/OBS CARE(HIGH) EUGENE HAILE DO Oct 19, 2024 08:55
--- NOTE | 2024-10-19 08:56 | DVHPN2 ---
Reviewed: Care Plan, H&P, Labs, Medications, Previous Orders, Radiology Changes from previous H/P or p: No Changes General: Per HPI Respiratory: Shortness of breath Objective Medications Current Medications Medications Dose Ordered Sig/Leonor Route Start Time Stop Time Status Last Admin Dose Admin Patient Own Medication 1 tab DAILY PO 10/03/24 10:00 UNV Patient Own Medication 1 mg DAILY PO 10/03/24 10:00 UNV Patient Own Medication 75 mcg DAILY PO 10/03/24 10:00 UNV Patient Own Medication 1 tab DAILY PO 10/03/24 10:00 UNV Patient Own Medication 1 cap DAILY PO 10/03/24 10:00 UNV Laboratory Results Laboratory Tests 10/07/24 18:37 Urinalysis Test 10/03/24 03:03 Urine Color Light-yellow (Yellow) Urine Clarity Turbid (Clear) H Urine pH 6.0 (5.0-9.0) Urine Specific [place] 1.017 (1.001-1.035) Urine Protein Negative (Negative) Urine Ketones Negative (Negative) Urine Blood Negative /uL (Negative) Urine Nitrite Negative (Negative) Urine Bilirubin Negative (Negative) Urine Urobilinogen Normal mg/dL (Negative) Urine Leukocyte Esterase 3+ /uL (Negative) Urine RBC 26 /hpf (0 - 4) Urine Microscopic WBC 147 /HPF (0-5) H Urine Squamous Epithelial Cells None seen /hpf (<5) Urine Bacteria Few /hpf (None Seen) H Urine Glucose Normal mg/dL (Normal) Microbiology Microbiology Date/Time Source Procedure Growth Status 10/03/24 15:06 Blood Blood Culture - Final NO GROWTH AFTER 5 DAYS OF INCUBATION. Complete 10/03/24 04:32 Nose MRSA Screen - Final Complete 10/03/24 03:03 Voided Urine Urine Culture - Final Klebsiella pneumoniae Complete Assessment/Plan Assessment/Plan Acute generalized weakness Acute symptomatic anemia hemoglobin 6.8 improved to 8.6 after 1 unit RBC transfusion Sepsis secondary to urinary tract infection: Blood cultures negative, urine cultures Klebsiella pneumoniae continue Invanz 1 g IV daily Acute urinary tract infection: Sick sinus syndrome with a history of pacemaker Hypothyroidism DVT left upper extremity COPD exacerbation Hypertension RYDER Severe DJD left hip Obesity weakness: needs PT to evaluate encephalopathy: metabolic due to UTI infection Time Spent >45 minutes in the coordination of care Plan discussed with: Patient Date of Service: Oct 12, 2024 Billing Provider: EUGENE HAILE DO Common Visit Codes: [id number] INP/OBS CARE(HIGH) EUGENE HAILE DO Oct 19, 2024 08:56
--- NOTE | 2024-10-19 08:56 | DVHPN2 ---
Reviewed: Care Plan, H&P, Labs, Medications, Previous Orders, Radiology Changes from previous H/P or p: No Changes General: Per HPI Respiratory: Shortness of breath Objective Medications Current Medications Medications Dose Ordered Sig/Leonor Route Start Time Stop Time Status Last Admin Dose Admin Patient Own Medication 1 tab DAILY PO 10/03/24 10:00 UNV Patient Own Medication 1 mg DAILY PO 10/03/24 10:00 UNV Patient Own Medication 75 mcg DAILY PO 10/03/24 10:00 UNV Patient Own Medication 1 tab DAILY PO 10/03/24 10:00 UNV Patient Own Medication 1 cap DAILY PO 10/03/24 10:00 UNV Laboratory Results Laboratory Tests 10/07/24 18:37 Urinalysis Test 10/03/24 03:03 Urine Color Light-yellow (Yellow) Urine Clarity Turbid (Clear) H Urine pH 6.0 (5.0-9.0) Urine Specific [place] 1.017 (1.001-1.035) Urine Protein Negative (Negative) Urine Ketones Negative (Negative) Urine Blood Negative /uL (Negative) Urine Nitrite Negative (Negative) Urine Bilirubin Negative (Negative) Urine Urobilinogen Normal mg/dL (Negative) Urine Leukocyte Esterase 3+ /uL (Negative) Urine RBC 26 /hpf (0 - 4) Urine Microscopic WBC 147 /HPF (0-5) H Urine Squamous Epithelial Cells None seen /hpf (<5) Urine Bacteria Few /hpf (None Seen) H Urine Glucose Normal mg/dL (Normal) Microbiology Microbiology Date/Time Source Procedure Growth Status 10/03/24 15:06 Blood Blood Culture - Final NO GROWTH AFTER 5 DAYS OF INCUBATION. Complete 10/03/24 04:32 Nose MRSA Screen - Final Complete 10/03/24 03:03 Voided Urine Urine Culture - Final Klebsiella pneumoniae Complete Assessment/Plan Assessment/Plan Acute generalized weakness Acute symptomatic anemia hemoglobin 6.8 improved to 8.6 after 1 unit RBC transfusion Sepsis secondary to urinary tract infection: Blood cultures negative, urine cultures Klebsiella pneumoniae continue Invanz 1 g IV daily Acute urinary tract infection: Sick sinus syndrome with a history of pacemaker Hypothyroidism DVT left upper extremity COPD exacerbation Hypertension RYDER Severe DJD left hip Obesity weakness: needs PT to evaluate encephalopathy: metabolic due to UTI infection Time Spent >45 minutes in the coordination of care Plan discussed with: Patient Date of Service: Oct 13, 2024 Billing Provider: EUGENE HAILE DO Common Visit Codes: [id number] INP/OBS CARE(HIGH) EUGENE HAILE DO Oct 19, 2024 08:56
--- NOTE | 2024-10-19 08:58 | DVHDS2 ---
Discharge Summary Date of Admission Oct 02, 2024 at 14:32 Date of Discharge: Oct 14, 2024 Labs/Diagnostic Data: Laboratory Results Test 10/14/24 11:59 10/07/24 18:37 10/04/24 09:15 10/03/24 03:03 POC Glucose 91 mg/dl (70-106) White Blood Count 12.8 10^3/uL (4.4-10.8) Red Blood Count 3.47 10^6/uL (4.0-5.20) Hemoglobin 10.7 g/dL (12.2-16.2) Hematocrit 32.9 % (36.0-46.0) Mean Corpuscular Volume 94.9 fL (80.0-100.0) Mean Corpuscular Hemoglobin 30.8 pg (28.0-32.0) Mean Corpuscular Hemoglobin Concent 32.4 g/dL (32.0-36.0) Red Cell Distribution Width 19.1 % (11.8-14.3) Platelet Count 291 10^3/uL (140-450) Mean Platelet Volume 7.9 fL (6.9-10.8) Neutrophils (%) (Auto) % (37.0-80.0) Lymphocytes (%) (Auto) % (10.0-50.0) Monocytes (%) (Auto) % (0.0-12.0) Basophils (%) (Auto) % (0.0-2.0) Neutrophils # (Auto) 10 ^3/uL (1.6-8.6) Lymphocytes # (Auto) 10 ^3/uL (0.4-5.4) Monocytes # (Auto) 10 ^3/uL (0-1.3) Differential Total Cells Counted 100.0 (100) Neutrophils % (Manual) 75 (37.0-80.0) Band Neutrophils % (Manual) 0 Lymphocytes % (Manual) 16 (10.0-50.0) Monocytes % (Manual) 7 (0-12) Eosinophils % (Manual) 2 (0-7) Basophils % (Manual) 0 (0.0-2.0) Metamyelocytes % (manual) 0 Myelocytes % (Manual) 0 Promyelocytes % (Manual) 0 Blast Cells % (Manual) 0 Reactive Lymphocytes 0 Platelet Estimate Adequate Anisocytosis (manual) Slight Sodium Level 143 mmol/L (136-145) Potassium Level 4.0 mmol/L (3.5-5.1) Chloride Level 112 mmol/L (98-107) Carbon Dioxide Level 21 mmol/L (20-31) Anion Gap 10 (5-15) Blood Urea Nitrogen 15 mg/dL (9-23) Creatinine 0.64 mg/dL (0.550-1.02) Glomerular Filtration Rate Calc 90 mL/min (>90) BUN/Creatinine Ratio 23.4 (10.0-20.0) Serum Glucose 96 mg/dL (74-106) Calcium Level 10.7 mg/dL (8.7-10.4) Total Bilirubin 0.4 mg/dL (0.2-1.0) Aspartate Amino Transferase (AST) 61 U/L (13-40) Alanine Aminotransferase (ALT) 48 U/L (7-40) Alkaline Phosphatase 105 U/L (46-116) Total Protein 6.5 g/dL (5.7-8.2) Albumin 3.7 g/dL (3.2-4.8) Eosinophils (%) (Auto) 0.9 % (0.0-7.0) Eosinophils # (Auto) 0.1 10 ^3/uL (0-0.8) Basophils # (Auto) 0.1 10 ^3/uL (0-0.2) Nucleated Red Blood Cells 0.1 % Urine Color Light-yellow (Yellow) Urine Clarity Turbid (Clear) Urine pH 6.0 (5.0-9.0) Urine Specific [place] 1.017 (1.001-1.035) Urine Protein Negative (Negative) Urine Ketones Negative (Negative) Urine Blood Negative /uL (Negative) Urine Nitrite Negative (Negative) Urine Bilirubin Negative (Negative) Urine Urobilinogen Normal mg/dL (Negative) Urine Leukocyte Esterase 3+ /uL (Negative) Urine RBC 26 /hpf (0 - 4) Urine Microscopic WBC 147 /HPF (0-5) Urine Squamous Epithelial Cells None seen /hpf (<5) Urine Bacteria Few /hpf (None Seen) Urine Glucose Normal mg/dL (Normal) Test 10/02/24 16:17 10/02/24 13:46 Haptoglobin 203 mg/dL (42-346) Troponin I High Sensitivity 8 ng/L (</=34) Vitamin B1 Level 81.8 nmol/L (66.5-200.0) Macrocytosis Slight Reticulocyte Count (auto) 4.69 % (0.5-1.5) Hemoglobin A1c 4.4 % A1C (<5.7) Iron Level 51 ug/dL (50-170) Total Iron Binding Capacity 257 ug/dL (250-425) Percent Iron Saturation 19.8 % (15-50) B-Type Natriuretic Peptide 58.47 pg/mL (0-100) CA 125 Antigen 10.3 U/mL (0.0-38.1) Vitamin B12 Level 805 pg/mL (211-911) Vitamin D 25-Hydroxy 35 ng/mL (.) 25-Hydroxy Vitamin D2 <1.0 ng/mL (.) 25-Hydroxy Vitamin D3 35 ng/mL (.) Other Laboratory Tests 10/07/24 18:37 Brief Hx & Hospital Course: Acute generalized weakness Acute symptomatic anemia hemoglobin 6.8 improved to 8.6 after 1 unit RBC transfusion Sepsis secondary to urinary tract infection: Blood cultures negative, urine cultures Klebsiella pneumoniae continue Invanz 1 g IV daily Acute urinary tract infection: Sick sinus syndrome with a history of pacemaker Hypothyroidism DVT left upper extremity COPD exacerbation Hypertension RYDER Severe DJD left hip Obesity weakness: needs PT to evaluate encephalopathy: metabolic due to UTI infection Time Spent >45 minutes in the coordination of care Condition at Discharge: Fair Final Diagnosis/Problems List see above Discharge Disposition: Home Discharge Instruct/Medications Diet: Cardiac 2g Na,low cholest Activity: No Restrictions, As Tolerated Scheduled Albuterol Sulfate (Albuterol Sulfate Hfa), 2 PUFF INH Q4HR, (Reported) Amiodarone HCl (Amiodarone HCl), 1 TAB PO BID, (Reported) Ascorbic Acid (Vitamin C Tablet), 500 MG PO DAILY, (Reported) Cetirizine HCl (Cetirizine Hydrochloride), 1 TAB PO DAILY, (Reported) Cholecalciferol (Gnp Vitamin D), 1 TAB PO DAILY, (Reported) Docusate Sodium (Docusate Sodium), 1 CAP PO QHSP, (Reported) Donepezil Hydrochloride (Donepezil Hcl), 1 TAB PO DAILY, (Reported) Ferrous Sulfate (Ferosul), 1 TAB PO DAILY, (Reported) Folic Acid (Folic Acid), 1 MG PO DAILY, (Reported) Levothyroxine Sodium (Levothyroxine Sodium), 75 MCG PO DAILY, (Reported) Metoprolol Succinate (Metoprolol Succinate Er), 1 TAB PO DAILY, (Reported) Omeprazole (Omeprazole Dr), 1 CAP PO DAILY, (Reported) Potassium Chloride (Klor-Con M20), 20 MEQ PO DAILY, (Reported) Rivaroxaban (Xarelto Tablet), 1 TAB PO DAILY, (Reported) Miscellaneous Medications Donepezil Hydrochloride (Donepezil Hcl), 1 TAB PO, (Reported) Oyster Shell Calcium (Calcium Oyster Shell), (Reported) Discharge Statement: "Patient was advised to return to the ER or call 911 if any headaches, dizziness, shortness of breath, chest pain, abdominal pain, bleeding, fevers, or worsening of medical condition. Patient was counseled about treatment plan, medications, possible side effects, patientverbalized understanding. All questions were answered to the best of my ability. This discharge took greater then 30 minutes in planning, reviewing documentation, counseling the patient, and discussing with other team members." ASSESSMENT ASSESSMENT Assessment Date of Service: Oct 14, 2024 Billing Provider: EUGENE HAILE DO Common Visit Codes: [id number] DISCH DAY >30min EUGENE HAILE DO Oct 19, 2024 08:58
== END 2024-10-14 15:40 | disposition home or self-care (01) | DRG 871 ==
LOC: EDUNIT# 10:25 → ER 10:25 → EDBD 10:25 → OVERFLOW 14:32 → WEST WING 20:28
PROVIDERS: ADMIT Internal Medicine; ATTEND Internal Medicine
PROC: 30233N1 Transfusion of Nonautologous Red Blood Cells into Peripheral Vein, Percutaneous Approach (ICD-10-PCS; principal; 2024-10-02)
PROC: 05H933Z Insertion of Infusion Device into Right Brachial Vein, Percutaneous Approach (ICD-10-PCS; 2024-10-02)
PROC: B54MZZA Ultrasonography of Right Upper Extremity Veins, Guidance (ICD-10-PCS; 2024-10-02)
DX: A41.9 Sepsis, unspecified organism (principal); G93.41 Metabolic encephalopathy; J96.01 Acute respiratory failure with hypoxia; L89.153 Pressure ulcer of sacral region, stage 3; N39.0 Urinary tract infection, site not specified; J44.1 Chronic obstructive pulmonary disease with (acute) exacerbation; N17.9 Acute kidney failure, unspecified; E46 Unspecified protein-calorie malnutrition; D64.9 Anemia, unspecified; E03.9 Hypothyroidism, unspecified; E11.9 Type 2 diabetes mellitus without complications; E66.9 Obesity, unspecified; E83.52 Hypercalcemia; I11.0 Hypertensive heart disease with heart failure; I49.5 Sick sinus syndrome; I50.9 Heart failure, unspecified; J98.4 Other disorders of lung; M16.12 Unilateral primary osteoarthritis, left hip; E78.5 Hyperlipidemia, unspecified; K21.9 Gastro-esophageal reflux disease without esophagitis; Z90.49 Acquired absence of other specified parts of digestive tract; Z98.891 History of uterine scar from previous surgery; Z99.81 Dependence on supplemental oxygen; Z95.0 Presence of cardiac pacemaker; Z88.1 Allergy status to other antibiotic agents; Z88.0 Allergy status to penicillin; Z86.718 Personal history of other venous thrombosis and embolism; Z87.891 Personal history of nicotine dependence; Z87.440 Personal history of urinary (tract) infections; Z79.899 Other long term (current) drug therapy; Z79.84 Long term (current) use of oral hypoglycemic drugs; Z79.01 Long term (current) use of anticoagulants; Z82.49 Family history of ischemic heart disease and other diseases of the circulatory system; Z83.3 Family history of diabetes mellitus; Z82.3 Family history of stroke; Z68.30 Body mass index [BMI] 30.0-30.9, adult
CPT/HCPCS: 36415; 71045; 74018; 80053; 81001; 82306; 82607; 82962; 83010; 83036; 83540; 83550; 83880; 84425; 84484; 85007; 85025; 85027; 85045; 86304; 86850; 86880; 86900; 86901; 86920; 87040; 87081; 87086; 87088; 87186; 93005; 94640; 96365; 96375; 97110; 97116; 97163; 97530; G0378; J1335; J2470

== ENCOUNTER 2024-10-22 09:57 | Inpatient (IN) | payer OTHER, MEDICAID ==
[~2024-10-22] VITALS: Ht 149.9 cm; Wt 71.8 kg
[~2024-10-22 09:57] MED LIST changes: +DONE1TAB88 PO; +OYST500T28
--- NOTE | 2024-10-22 10:36 | ED.PDOC ---
History of Present Illness HPI Comments This is a 79 year old female with past medical history of hypertension, s/p pacemaker, COPD on 2 L home oxygen, anemia, hypothyroidism, DVT, PE, atrial fibrillation on Xarelto transferred from doctor's office for an evaluation of syncopal episode earlier in the morning. According to the caregiver the patient had a large volume of black stool yesterday and today informed of the [facility] Office suddenly she became unresponsive for 2-3 minutes but did not lose consciousness and also complaining of heaviness in the chest. He has a chronic anemia due to GI blood loss and recently 2 weeks ago she was in hospital and received 1 unit of blood transfusion. Denies chest pain, dizziness, shortness of breath, cough, phlegm, abdominal pain, nausea, vomiting, dysuria, hematuria or any blood in the stool. PCP: Dr. Fierro Supervisor Refining : Dr. Ramos Chief Complaint: Syncope Time Seen by MD: 09:59 Primary Care Provider: unknown Allergies: Coded Allergies: Atenolol (Verified Allergy, Mild, RASH/ITCHING, 12/18/20) Lisinopril (Verified Allergy, Mild, 12/18/20) Ciprofloxacin (Verified Allergy, Unknown, 11/20/22) Penicillin V (Verified Allergy, Unknown, 12/18/20) Penicillins (Unverified Allergy, Unknown, 08/17/24) Home Meds Reported Medications Donepezil Hydrochloride (DONEPEZIL HCL) 10 Mg Tab, 1 TAB PO 10/02/24 Oyster Shell Calcium (Calcium Oyster Shell) 500 Mg Tab 10/02/24 Albuterol Sulfate (Albuterol Sulfate Hfa) 108 Mcg/Act Aer, 2 PUFF INH Q4HR for 50 Days, #54 07/14/24 Donepezil Hydrochloride (DONEPEZIL HCL) 5 Mg Tab, 1 TAB PO DAILY for 90 Days, #90 07/14/24 Docusate Sodium (Docusate Sodium) 100 Mg Cap, 1 CAP PO QHSP for 30 Days, #30 07/14/24 Ferrous Sulfate (Ferosul) 325 Mg Tab, 1 TAB PO DAILY for 90 Days, #90 07/14/24 Cetirizine HCl (Cetirizine Hydrochloride) 10 Mg Tab, 1 TAB PO DAILY for 90 Days, #90 07/14/24 Rivaroxaban (Xarelto Tablet) 20 Mg Tb, 1 TAB PO DAILY for 30 Days, #30 07/14/24 Omeprazole (Omeprazole Dr) 20 Mg Cap, 1 CAP PO DAILY for 90 Days, #90 07/14/24 Cholecalciferol (Gnp Vitamin D) 1,000 Unit Tab, 1 TAB PO DAILY for 30 Days, #30 07/14/24 Amiodarone HCl (Amiodarone HCl) 200 Mg Tab, 1 TAB PO BID 10/16/22 Metoprolol Succinate (Metoprolol Succinate Er) 25 Mg Tab, 1 TAB PO DAILY for 90 Days, #90 10/16/22 Ascorbic Acid (VITAMIN C TABLET) 500 Mg Tb, 500 MG PO DAILY 12/19/20 Folic Acid (Folic Acid) 1 Mg Tab, 1 MG PO DAILY for 30 Days, #30 02/26/20 Potassium Chloride (Klor-Con M20) 20 Meq Tab, 20 MEQ PO DAILY 12/31/11 Levothyroxine Sodium (Levothyroxine Sodium) 75 Mcg Tab, 75 MCG PO DAILY 12/31/11 Information Source: Patient Mode of Arrival: Wheelchair Severity: Moderate Timing: Hours Duration: Since onset Prehospital treatment: 12 Lead EKG Past Medical History PAST MEDICAL HISTORY: Anemia, Angina, Arthritis, Asthma, CHF, COPD, DM, GERD, HTN, Thyroid Surgical History: Cholecystectomy, , Hernia Repair, Pacemaker, Tonsillectomy AUDITING SPECIALIST History: No Pertinent AUDITING SPECIALIST History Family History Family History: Reviewed,noncontributory to illness, Unknown Social History Smoker: Non-Smoker Alcohol: Denies ETOH Use Drugs: Denies Drug Use Lives In: Home Constitutional: reports: fatigue, malaise; denies: chills, diaphoresis, fever, sweats, weakness, others EENTM: denies: blurred vision, double vision, ear bleeding, ear discharge, ear drainage, ear pain, ear ringing, eye pain, eye redness, hearing loss, mouth pain, mouth swelling, nasal discharge, nose bleeding, nose congestion, nose pain, photophobia, tearing, throat pain, throat swelling, voice changes, others Respiratory: denies: cough, hemoptysis, orthopnea, SOB at rest, shortness of breath, SOB with excertion, stridor, wheezing, others Cardiovascular: reports: lightheadedness, syncope; denies: chest pain, dizzy spells, diaphoresis, Dyspnea on exertion, edema, irregular heart beat, left arm pain, palpitations, PND, others Gastrointestinal: denies: abdomen distended, abdominal pain, blood streaked bowels, constipated, diarrhea, dysphagia, difficulty swallowing, hematemesis, melena, nausea, poor appetite, poor fluid intake, rectal bleeding, rectal pain, vomiting, others Genitourinary: denies: abnormal vagina bleeding, burning, dyspareunia, dysuria, flank pain, frequency, hematuria, incontinence, pain, , vagina discharge, urgency, others Neurological: denies: dizziness, fainting, headache, left sided numbness, left sided weakness, numbness, paresthesia, pre-existing deficit, right sided numbness, right sided weakness, seizure, speech problems, tingling, tremors, weakness, others Integumetry: denies: bruises, change in color, change in hair/nails, dryness, laceration, lesions, lumps, rash, wounds, others Allergic/Immunocompromised: denies: Difficulty Healing, Frequent Infections, Hives, Itching, others Hematologic/Lymphatic: reports: anemia, blood clots; denies: easy bleeding, easy bruising, swollen glands, others Endocrine: denies: excessive hunger, excessive sweating, excessive thirst, excessive urination, flushing, intolerance to cold, intolerance to heat, unexplained weight gain, unexplained weight loss, others Psychiatric: denies: anxiety, bipolar disorder, depression, hopeless, panic disorder, schizophrenia, sleepless, suicidal, others Physical Exam General Appearance: Mild Distress HEENT: Normal ENT Inspection, Pharynx Normal, TMs Normal Neck: Full Range of Motion, Non-Tender, Normal, Normal Inspection Respiratory: No Respiratory Distress, Normal Breath Sounds Cardiovascular: No Edema, No JVD, No Murmur, No Gallop, Normal Peripheral Pulses, Regular Rate/Rhythm Breast Exam: Deferred Gastrointestinal: No Organomegaly, Non Tender, No Pulsatile Mass, Normal Bowel Sounds, Soft Genitalia: Deferred Pelvic: Deferred Rectal: Deferred Extremities: No calf tenderness, Normal capillary refill, Normal inspection, Normal range of motion, Non-tender, No pedal edema Neurologic: NOT DONE Cerebellar Function: NOT DONE Reflexes: NOT DONE Skin: NOT DONE Peripheral Pulses: 2+ carotid (R), 2+ carotid (L), 2+ femoral (R), 2+ femoral (L), 2+ dorsalis pedis (R), 2+ dorsalis pedis (L), 2+ Radial (R), 2+ Radial (L), 2+ Brachial (R), 2+ Brachial (L) Lymphatic: NOT DONE Was a procedure done? Was a procedure done?: No Differential Dx Considerations may include: Bilateral DVT, syncope, lower GI bleeding, COPD X-Ray, Labs, Meds, VS Vital Signs Date Time Temp Pulse Resp B/P (MAP) Pulse Ox O2 Delivery O2 Flow Rate FiO2 10/22/24 10:04 65 10/22/24 10:00 97.7 66 18 125/48 97 97.7 Lab Test 10/22/24 11:01 Range/Units White Blood Count 9.5 4.4-10.8 10^3/uL Red Blood Count 2.69 L 4.0-5.20 10^6/uL Hemoglobin 8.3 L 12.2-16.2 g/dL Hematocrit 25.4 L 36.0-46.0 % Mean Corpuscular Volume 94.4 80.0-100.0 fL Mean Corpuscular Hemoglobin 31.1 28.0-32.0 pg Mean Corpuscular Hemoglobin Concent 32.9 32.0-36.0 g/dL Red Cell Distribution Width 17.8 H 11.8-14.3 % Platelet Count 491 H 140-450 10^3/uL Mean Platelet Volume 7.2 6.9-10.8 fL Neutrophils (%) (Auto) 73.8 37.0-80.0 % Lymphocytes (%) (Auto) 16.5 10.0-50.0 % Monocytes (%) (Auto) 6.8 0.0-12.0 % Eosinophils (%) (Auto) 1.9 0.0-7.0 % Basophils (%) (Auto) 1.0 0.0-2.0 % Neutrophils # (Auto) 7.0 1.6-8.6 10 ^3/uL Lymphocytes # (Auto) 1.6 0.4-5.4 10 ^3/uL Monocytes # (Auto) 0.7 0-1.3 10 ^3/uL Eosinophils # (Auto) 0.2 0-0.8 10 ^3/uL Basophils # (Auto) 0.1 0-0.2 10 ^3/uL Nucleated Red Blood Cells 0.0 % Prothrombin Time 11.9 H 9.3-11.8 sec Prothrombin Time INR 1.14 0.9-1.15 Activated Partial Thromboplast Time 28.0 24.5-34.5 SEC Sodium Level 143 136-145 mmol/L Potassium Level 3.8 3.5-5.1 mmol/L Chloride Level 113 H 98-107 mmol/L Carbon Dioxide Level 21 20-31 mmol/L Anion Gap 9 5-15 Blood Urea Nitrogen 22 9-23 mg/dL Creatinine 1.02 0.550-1.02 mg/dL Glomerular Filtration Rate Calc 56 >90 mL/min BUN/Creatinine Ratio 21.6 H 10.0-20.0 Serum Glucose 137 H 74-106 mg/dL Calcium Level 11.0 H 8.7-10.4 mg/dL B-Type Natriuretic Peptide 66.87 0-100 pg/mL X-Ray, Labs, Meds, VS Comment Doppler scan of the lower extremity demonstrated bilateral DVT. Images Reviewed?: Images reviewed and evaluated by me Time of 1ST Reevaluation: 11:58 Reevaluation 1ST: Unchanged Patient Education/Counseling: Diagnosis, Treatment Family Education/Counseling: No Family Present SEPSIS Sepsis Screen Date sepsis recognized/suspect: Oct 22, 2024 Time Sepsis recognized/suspect: 1000 Recent Procedure: No On Antibiotic Therapy: No Respiratory Rate >20: No Heart Rate >90: No Temp<36 C (96.8 F) or >38.3 C: No SBP <90 or MAP <65 mmHG: No New Acute Mental Status Change: No Is the patient on CPAP, BIPAP,: No Physician Orders Electrocardigram (10/22/24 09:59) Urinalysis (10/22/24 10:26) Bilat Lower Dvt (10/22/24 10:36) Sodium Chloride 0.9% (10/22/24 11:45) Vital Signs Date Time Temp Pulse Resp B/P (MAP) Pulse Ox O2 Delivery O2 Flow Rate FiO2 10/22/24 10:04 65 10/22/24 10:00 97.7 66 18 125/48 97 97.7 Laboratory Tests Test 10/22/24 11:01 White Blood Count 9.5 10^3/uL (4.4-10.8) Departure 1 Departure Time of Disposition: 12:00 Impression: Primary Impression: DVT, bilateral lower limbs Additional Impression: Lower GI bleeding Disposition: 30 STILL A PATIENT Admit to: Tele Condition: Guarded Critical Care Note Critical Care Time?: No Stability Stability form required: RANDY Barnett RESIDENT Oct 22, 2024 10:36
[2024-10-22 11:19] LABS: Hematocrit 25.4 % (36.0-46.0); Hemoglobin 8.3 g/dL (12.2-16.2); Mean Corpuscular Hemoglobin 31.1 pg (28.0-32.0); Mean Corpuscular Volume 94.4 fL (80.0-100.0); Nucleated Red Blood Cells % 0.0 %
[2024-10-22 11:29] LABS: Chloride 113 mmol/L (98-107); Potassium 3.8 mmol/L (3.5-5.1); Sodium 143 mmol/L (136-145)
[2024-10-22 11:30] LABS: Anion Gap 9 (5-15); Carbon Dioxide 21 mmol/L (20-31)
[2024-10-22 11:32] LABS: Calcium 11.0 mg/dL (8.7-10.4)
[2024-10-22 11:34] LABS: INR 1.14 (0.9-1.15); Partial Thromboplastin Time 28.0 SEC (24.5-34.5); Prothrombin Time 11.9 sec (9.3-11.8)
[2024-10-22 11:35] LABS: BUN/Creatinine Ratio 21.6 (10.0-20.0); Blood Urea Nitrogen 22 mg/dL (9-23)
[2024-10-22 11:36] LABS: Glucose 137 mg/dL (74-106)
[2024-10-22] MEDS: SODIUM CHLORIDE 0.9% 1,000 ML IV ONE (11:37)
[2024-10-22 12:00] VITALS: PULSE 65; RESP 22; O2SAT 98
--- NOTE | 2024-10-22 12:01 | DVH ---
Bilateral lower extremity venous duplex Clinical History: pain; To rule out DVT Comparison: US LT UPPER DVT on DOS: 09/05/24, US BILAT LOWER DVT on DOS: 07/13/24, CL ANGIO EXTREMITY B ILAT Wesley on DOS: 11/21/22, US RT LOW EXT ART DUPLEX on DOS: 10/17/22 Technique: Duplex Doppler evaluation of the deep venous systems of both lower extremities from the common femora l veins to the popliteal veins including color Doppler and spectral/pulsed waveform analysis was perf ormed. Findings: RIGHT SIDE: The common femoral vein demonstrates appropriate compressibility and waveform variability. There is compressibility/patency of the great saphenous vein at the proximal thigh. The proximal and mid superficial femoral vein demonstrates demonstrates incomplete compressibility. The deep femoral vein demonstrates appropriate compressibility and waveform variability. The popliteal vein demonstrates appropriate compressibility and waveform variability. There is normal compressibility at the tibioperoneal trunk. LEFT SIDE: The common femoral vein demonstrates appropriate compressibility and waveform variability. There is compressibility/patency of the great saphenous vein at the proximal thigh. The proximal femoral vein demonstrates incomplete compressibility. The deep femoral vein demonstrates appropriate compressibility and waveform variability. The popliteal vein demonstrates appropriate compressibility and waveform variability. There is normal compressibility at the tibioperoneal trunk. Impression: Non-occlusive thrombus in the right proximal/mid superficial femoral veins and left proximal femoral vein. Critical Result: DVT Findings discussed with Dr. Amaro, at 10/22/2024 11:57 AM, and acknowledged receipt and understandi ng of the findings.
[2024-10-22] MEDS ORDERED: ONDANSETRON HCL 4 MG/2 ML VIAL IV PRN (14:15)
[2024-10-22] MEDS ORDERED: DEXTROSE (50%) 50ML SYRG IV PRN (14:15)
[2024-10-22] MEDS: SODIUM CHLORIDE 0.9% 500 ML IV ONE (14:37)
[2024-10-22] MEDS: PANTOPRAZOLE 40 MG/10 ML VIAL INJ IV ONE (14:37)
[2024-10-22 15:07] LABS: Hemoglobin 9.4 g/dL (12.2-16.2)
[2024-10-22 15:09] LABS: Hematocrit 29.2 % (36.0-46.0)
--- NOTE | 2024-10-22 15:11 | DVHHP2 ---
History of Present Illness Reason for Visit: Generalized weakness History of Present Illness 79-year-old female presents for evaluation of generalized weakness. Patient was seen by his primary care provider's office today and advised to present to the ER for further evaluation. Patient reports having a near syncopal episode today in the morning. She also states noticing black tarry stools for the past two days. Denies shortness or breath or chest pain. No other acute complaints reported. Past Medical History Asthma, anemia, CHF, DVT, COPD, diabetes mellitus, hypertension, thyroid Past Surgical History Cholecystectomy, hernia repair, pacemaker, tonsillectomy Family History Noncontributory Smoke: No ALCOHOL: none Drugs: None Review of Systems Review of Systems Review of systems are currently negative otherwise addressed in HPI. Allergies: Coded Allergies: Atenolol (Verified Allergy, Mild, RASH/ITCHING, 12/18/20) Lisinopril (Verified Allergy, Mild, 12/18/20) Ciprofloxacin (Verified Allergy, Unknown, 11/20/22) Penicillin V (Verified Allergy, Unknown, 12/18/20) Penicillins (Unverified Allergy, Unknown, 08/17/24) Medications Current Medications Medications Dose Ordered Sig/Leonor Route Start Time Stop Time Status Last Admin Dose Admin Pantoprazole Sodium 40 mg BID IV 10/22/24 22:00 UNV Amiodarone HCl 200 mg Q12HR PO 10/22/24 22:00 UNV Donepezil HCl 10 mg HS PO 10/22/24 22:00 UNV Levothyroxine Sodium 75 mcg QAM@0600 PO 10/23/24 06:00 UNV Metoprolol Succinate 25 mg DAILY PO 10/23/24 10:00 UNV Albuterol 2.5 mg Q6HPRN PRN NEB 10/22/24 14:15 UNV Ondansetron HCl 4 mg Q4HP PRN IV 10/22/24 14:15 UNV Diagnostic Test (Pha) 1 strip Q6HR 10/22/24 18:00 UNV Insulin Human Regular Q6HR SC 10/22/24 18:00 UNV Dextrose 50 ml UD PRN IV 10/22/24 14:15 UNV Exam Vital Signs Vital Signs Date Time Temp Pulse Resp B/P (MAP) Pulse Ox O2 Delivery O2 Flow Rate FiO2 10/22/24 12:00 97.3 65 22 116/57 (76) 99 97.3 10/22/24 12:00 Nasal Cannula* 4 36 Exam Gen: 79-year-old female in mild distress Skin: Warm, dry, normal color and texture, no rash. HEENT: Normocephalic atraumatic, mucous membranes moist and pink. Neck: Cervical and supraclavicular nodes normal without enlargement, trachea is midline, thyroid gland is normal without masses. Pulmonary: Clear to auscultation and percussion bilaterally. Cardiac: Regular rate and rhythm. No murmur Abdomen: Soft, nontender, nondistended, bowel sounds present all 4 quadrants, no guarding, no rigidity, no organomegaly. Extremities: No cyanosis, clubbing, no edema Neuro: Cranial nerves II through XII grossly intact, normal affect and speech, no focal motor deficits. Labs/Xrays ORDERING PHYSICIAN: RANDY AMARO RESIDENT PROCEDURE(s): BLDVT - BiLat Lower DVT REASON: To rule out DVT ORDER NUMBER(s): [id number], ACCESSION NUMBER(s): [id number] Bilateral lower extremity venous duplex Clinical History: pain; To rule out DVT Comparison: US LT UPPER DVT on DOS: 09/05/24, US BILAT LOWER DVT on DOS: 07/13/24, CL ANGIO EXTREMITY BILAT [place] on DOS: 11/21/22, US RT LOW EXT ART DUPLEX on DOS: 10/17/22 Technique: Duplex Doppler evaluation of the deep venous systems of both lower extremities from the common femoral veins to the popliteal veins including color Doppler and spectral/pulsed waveform analysis was performed. Findings: RIGHT SIDE: The common femoral vein demonstrates appropriate compressibility and waveform variability. There is compressibility/patency of the great saphenous vein at the proximal thigh. The proximal and mid superficial femoral vein demonstrates demonstrates incomplete compressibility. The deep femoral vein demonstrates appropriate compressibility and waveform variability. The popliteal vein demonstrates appropriate compressibility and waveform variability. There is normal compressibility at the tibioperoneal trunk. LEFT SIDE: The common femoral vein demonstrates appropriate compressibility and waveform variability. There is compressibility/patency of the great saphenous vein at the proximal thigh. The proximal femoral vein demonstrates incomplete compressibility. The deep femoral vein demonstrates appropriate compressibility and waveform variability. The popliteal vein demonstrates appropriate compressibility and waveform variability. There is normal compressibility at the tibioperoneal trunk. Impression: Non-occlusive thrombus in the right proximal/mid superficial femoral veins and left proximal femoral vein. Critical Result: DVT Findings discussed with Dr. Amaro, at 10/22/2024 11:57 AM, and acknowledged receipt and understanding of the findings. Labs Test 10/22/24 14:45 10/22/24 11:01 Range/Units White Blood Count 9.5 4.4-10.8 10^3/uL Red Blood Count 2.69 L 4.0-5.20 10^6/uL Mean Corpuscular Volume 94.4 80.0-100.0 fL Mean Corpuscular Hemoglobin 31.1 28.0-32.0 pg Mean Corpuscular Hemoglobin Concent 32.9 32.0-36.0 g/dL Red Cell Distribution Width 17.8 H 11.8-14.3 % Platelet Count 491 H 140-450 10^3/uL Mean Platelet Volume 7.2 6.9-10.8 fL Neutrophils (%) (Auto) 73.8 37.0-80.0 % Lymphocytes (%) (Auto) 16.5 10.0-50.0 % Monocytes (%) (Auto) 6.8 0.0-12.0 % Eosinophils (%) (Auto) 1.9 0.0-7.0 % Basophils (%) (Auto) 1.0 0.0-2.0 % Neutrophils # (Auto) 7.0 1.6-8.6 10 ^3/uL Lymphocytes # (Auto) 1.6 0.4-5.4 10 ^3/uL Monocytes # (Auto) 0.7 0-1.3 10 ^3/uL Eosinophils # (Auto) 0.2 0-0.8 10 ^3/uL Basophils # (Auto) 0.1 0-0.2 10 ^3/uL Nucleated Red Blood Cells 0.0 % Prothrombin Time 11.9 H 9.3-11.8 sec Prothrombin Time INR 1.14 0.9-1.15 Activated Partial Thromboplast Time 28.0 24.5-34.5 SEC Sodium Level 143 136-145 mmol/L Potassium Level 3.8 3.5-5.1 mmol/L Chloride Level 113 H 98-107 mmol/L Carbon Dioxide Level 21 20-31 mmol/L Anion Gap 9 5-15 Blood Urea Nitrogen 22 9-23 mg/dL Creatinine 1.02 0.550-1.02 mg/dL Glomerular Filtration Rate Calc 56 >90 mL/min BUN/Creatinine Ratio 21.6 H 10.0-20.0 Serum Glucose 137 H 74-106 mg/dL Calcium Level 11.0 H 8.7-10.4 mg/dL B-Type Natriuretic Peptide 66.87 0-100 pg/mL SEPSIS Sepsis Screen Date sepsis recognized/suspect: Oct 22, 2024 Time Sepsis recognized/suspect: 1200 Recent Procedure: No On Antibiotic Therapy: No Respiratory Rate >20: Yes Heart Rate >90: No Temp<36 C (96.8 F) or >38.3 C: No SBP <90 or MAP <65 mmHG: No New Acute Mental Status Change: No Is the patient on CPAP, BIPAP,: No Physician Orders Electrocardigram (10/22/24 09:59) Urinalysis (10/22/24 10:26) Bilat Lower Dvt (10/22/24 10:36) Pantoprazole (Protonix) (10/22/24 22:00) Type And Screen (10/22/24 14:07) Amiodarone Tablet (Cordarone Tablet) (10/22/24 22:00) Donepezil Tablet (Aricept Tablet) (10/22/24 22:00) Levothyroxine Tablet (Synthroid Tablet) (10/23/24 06:00) Metoprolol Xl Succinate (Toprol Xl) (10/23/24 10:00) Albuterol Medneb (Ventolin Medneb) (10/22/24 14:15) * Gi Dvh Dye Lab Technician (10/22/24 14:07) Stool Occult Blood (10/22/24 14:07) Basic Metabolic Panel (10/23/24 04:00) Admit (10/22/24 14:07) Ondansetron Hcl (Zofran) (10/22/24 14:15) Complete Blood Count (10/23/24 04:00) Condition: Stable (10/22/24 14:07) Clear Liq Diet (10/22/24 Dinner) Bedrest With Bathroom Privileg (10/22/24 14:07) Glucose Blood (Accu-Chek Comfort Curve T (10/22/24 18:00) Insulin R (Human) (Insulin R) (10/22/24 18:00) Dextrose 50% Syringe (10/22/24 14:15) Hemoglobin & Hematocrit (10/22/24 15:00) Vital Signs Date Time Temp Pulse Resp B/P (MAP) Pulse Ox O2 Delivery O2 Flow Rate FiO2 10/22/24 12:00 97.3 65 22 116/57 (76) 99 97.3 10/22/24 12:00 65 22 98 Nasal Cannula* 4 36 10/22/24 10:04 65 10/22/24 10:00 97.7 66 18 125/48 97 97.7 Laboratory Tests Test 10/22/24 11:01 White Blood Count 9.5 10^3/uL (4.4-10.8) Medications Medications Dose Ordered Sig/Leonor Route Start Time Stop Time Status Last Admin Dose Admin Pantoprazole Sodium 40 mg ONCE ONCE IV 10/22/24 12:15 10/22/24 12:24 DC 10/22/24 14:37 40 MG Sodium Chloride 500 ml @ 500 mls/hr Q1H ONCE IV 10/22/24 11:45 10/22/24 12:44 DC 10/22/24 14:37 500 MLS/HR Assessment/Plan Assessment/Plan Assessment ? GI bleed Anemia Bilateral leg DVT Diabetes mellitus Hypertension Plan Admit the patient to [facility] to the hospitalist GI consultation Clear liquid diet Resume home medications Hold Xarelto Continue treatment per orders. Plan discussed with: Patient My Orders Orders - JOEY HERNANDEZ AGACNP Procedure Category Date Status Time Pantoprazole PHA 10/22/24 Logged (Protonix) 22:00 Type And Screen BBK 10/22/24 In Process 14:07 Amiodarone Tablet PHA 10/22/24 Logged (Cordarone Tablet) 22:00 Donepezil Tablet PHA 10/22/24 Logged (Aricept Tablet) 22:00 Levothyroxine Tablet PHA 10/23/24 Logged (Synthroid Tablet) 06:00 Metoprolol Xl PHA 10/23/24 Logged Succinate (Toprol Xl) 10:00 Albuterol Medneb PHA 10/22/24 Logged (Ventolin Medneb) 14:15 * Gi Dvh Dye Lab Technician CONS 10/22/24 Transmitted 14:07 Stool Occult Blood LAB 10/22/24 Logged 14:07 Basic Metabolic Panel LAB 10/23/24 Verified 04:00 Admit ADMIT 10/22/24 Transmitted 14:07 Ondansetron Hcl PHA 10/22/24 Logged (Zofran) 14:15 Complete Blood Count LAB 10/23/24 Verified 04:00 Condition: Stable MARGI 10/22/24 In Process 14:07 Clear Liq Diet DIET 10/22/24 Transmitted Dinner Bedrest With Bathroom MARGI 10/22/24 In Process Privileg 14:07 Glucose Blood PHA 10/22/24 Logged (Accu-Chek Comfort 18:00 Insulin R (Human) PHA 10/22/24 Logged (Insulin R) 18:00 Dextrose 50% Syringe PHA 10/22/24 Logged 14:15 Hemoglobin & LAB 10/22/24 In Process Hematocrit 15:00 Date of Service: Oct 22, 2024 Billing Provider: JOEY HERNANDEZ Common Visit Codes: [id number] INP/OBS CARE (HIGH) JOEY HERNANDEZ Oct 22, 2024 15:11
[2024-10-22 15:26] VITALS: BP 116/57; PULSE 65; RESP 20; TEMP 97.3; O2SAT 98
[2024-10-22] MEDS: ACCU-CHEK COMFORT CURVE STRIP VI SCH (18:00)
[2024-10-22] MEDS: InsuLIN REG 1unit/0.01ml Soln (100units/ml) SC SCH (18:00)
[2024-10-22 18:24] VITALS: O2SAT 94
[2024-10-22 20:00] VITALS: PULSE 65; RESP 19
[2024-10-22] MEDS: DONEPEZIL HYDROCHLORIDE 5 MG TAB PO SCH (22:27)
[2024-10-22] MEDS: AMIODARONE HCL 200 MG TAB PO SCH (22:27)
[2024-10-22] MEDS: PANTOPRAZOLE 40 MG/10 ML VIAL INJ IV SCH (22:28)
[2024-10-23] VITALS (12 sets, daily range): BP systolic 108–143; BP diastolic 54–84; PULSE 62–83; RESP 14–19; TEMP 97–98.1; O2SAT 95–100
[2024-10-23] MEDS: LEVOTHYROXINE SODIUM 25 MCG TAB PO SCH (05:43)
[2024-10-23 06:02] LABS: Urine Protein, UAD TRACE (Negative)
[2024-10-23 07:03] LABS: Potassium 3.9 mmol/L (3.5-5.1); Sodium 145 mmol/L (136-145)
[2024-10-23 07:04] LABS: Anion Gap 12 (5-15)
[2024-10-23 07:05] LABS: Calcium 10.5 mg/dL (8.7-10.4); Carbon Dioxide 19 mmol/L (20-31); Chloride 114 mmol/L (98-107)
[2024-10-23 07:09] LABS: BUN/Creatinine Ratio 26.4 (10.0-20.0); Glucose 89 mg/dL (74-106)
[2024-10-23 07:18] LABS: Blood Urea Nitrogen 24 mg/dL (9-23)
[2024-10-23 09:10] LABS: Hemoglobin 8.6 g/dL (12.2-16.2)
[2024-10-23 09:11] LABS: Hematocrit 27.5 % (36.0-46.0); Mean Corpuscular Hemoglobin 30.5 pg (28.0-32.0); Mean Corpuscular Volume 97.3 fL (80.0-100.0); Nucleated Red Blood Cells % 0.1 %
[2024-10-23] MEDS: ALBUTEROL SULF 2.5 MG/0.5ML(0.5%) NEB SOLN NEB PRN (09:39)
[2024-10-23] MEDS: METOPROLOL SUCCINATE XL 50 MG TAB PO SCH (10:00)
--- NOTE | 2024-10-23 10:41 | ECG ---
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
--- NOTE | 2024-10-23 10:41 | ECG ---
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
--- NOTE | 2024-10-23 12:40 | DVHINCON2 ---
GI Consult Consult Note GI consult note Date of Consultation: 10/23/2024 Chief Complaint: GI bleed Referring Physician: uMrray AGUSTIN H&P: 79-year-old admitted from PCP's office for generalized weakness and difficulty breathing. Patient complaining of left lower quadrant and left flank pain. No nausea or vomiting. Patient last bowel movement this morning, and has been having more bowel incontinence symptoms. No red blood in stool but patient has noticed dark stool. Patient takes iron supplements due to history of anemia. Unsure about last colonoscopy. Operative Report DATE OF OPERATION: 08/26/24 PROCEDURE: Upper Endoscopy with biopsy. PREOPERATIVE INDICATION: The patient is a 78 -year-old female undergoing endoscopy for anemia POSTOPERATIVE DIAGNOSES: 1. 2-3 cm sliding-type hiatal hernia with grade A erosive esophagitis 2. Minimal gastritis otherwise normal examination of the 2nd and 3rd part of the duodenum PROCEDURE PERFORMED BY: Suzanne Castro Past Medical History: Asthma, anemia, CHF, DVT, COPD, diabetes mellitus, hypertension, thyroid Past Surgical History: Cholecystectomy, hernia repair, pacemaker, tonsillectomy Social History: NO smoking, drinking ETOH and use of illegal drugs. Family History: Noncontributory Review of Systems: Constitutional: no fever, chill, weight loss Heart: no chest pain, no chest pressure Lung: Difficulty breathing Abdomen: see HPI Physical exam: General: NAD, AAOX3 Chest: lung alvarenga clear to auscultation Heart: RRR, no murmur Abdomen: non-distended, no tenderness to palpation, +BS Labs: Labs Test 10/23/24 12:15 10/23/24 08:46 10/23/24 06:23 10/23/24 05:39 Range/Units White Blood Count 9.0 4.4-10.8 10^3/uL Red Blood Count 2.82 L 4.0-5.20 10^6/uL Hemoglobin 8.6 L 12.2-16.2 g/dL Hematocrit 27.5 L 36.0-46.0 % Mean Corpuscular Volume 97.3 80.0-100.0 fL Mean Corpuscular Hemoglobin 30.5 28.0-32.0 pg Mean Corpuscular Hemoglobin Concent 31.3 L 32.0-36.0 g/dL Red Cell Distribution Width 18.3 H 11.8-14.3 % Platelet Count 455 H 140-450 10^3/uL Mean Platelet Volume 7.0 6.9-10.8 fL Neutrophils (%) (Auto) 67.2 37.0-80.0 % Lymphocytes (%) (Auto) 20.5 10.0-50.0 % Monocytes (%) (Auto) 8.6 0.0-12.0 % Eosinophils (%) (Auto) 2.9 0.0-7.0 % Basophils (%) (Auto) 0.8 0.0-2.0 % Neutrophils # (Auto) 6.0 1.6-8.6 10 ^3/uL Lymphocytes # (Auto) 1.8 0.4-5.4 10 ^3/uL Monocytes # (Auto) 0.8 0-1.3 10 ^3/uL Eosinophils # (Auto) 0.3 0-0.8 10 ^3/uL Basophils # (Auto) 0.1 0-0.2 10 ^3/uL Nucleated Red Blood Cells 0.1 % Sodium Level 145 136-145 mmol/L Potassium Level 3.9 3.5-5.1 mmol/L Chloride Level 114 H 98-107 mmol/L Carbon Dioxide Level 19 L 20-31 mmol/L Anion Gap 12 5-15 Blood Urea Nitrogen 24 H 9-23 mg/dL Creatinine 0.91 0.550-1.02 mg/dL Glomerular Filtration Rate Calc 64 >90 mL/min BUN/Creatinine Ratio 26.4 H 10.0-20.0 Serum Glucose 89 74-106 mg/dL Calcium Level 10.5 H 8.7-10.4 mg/dL POC Glucose 77 70-106 mg/dl Test 10/23/24 05:10 10/22/24 11:01 Range/Units Urine Color Yellow Yellow Urine Clarity Clear Clear Urine pH 6.0 5.0-9.0 Urine Specific [place] 1.019 1.001-1.035 Urine Protein Trace H Negative Urine Ketones Negative Negative Urine Blood Negative Negative /uL Urine Nitrite Negative Negative Urine Bilirubin Negative Negative Urine Urobilinogen Normal Negative mg/dL Urine Leukocyte Esterase 1+ Negative /uL Urine RBC None seen 0 - 4 /hpf Urine Microscopic WBC 12 H 0-5 /HPF Urine Squamous Epithelial Cells Few <5 /hpf Urine Bacteria None seen None Seen /hpf Urine Hyaline Casts Mod 0 - 2 /lpf Urine Mucus Few None Seen Urine Glucose Normal Normal mg/dL Prothrombin Time 11.9 H 9.3-11.8 sec Prothrombin Time INR 1.14 0.9-1.15 Activated Partial Thromboplast Time 28.0 24.5-34.5 SEC B-Type Natriuretic Peptide 66.87 0-100 pg/mL Imaging: Assessment: Possible GI bleed History of anemia History of mild gastritis Hiatal hernia Plan: Discussed with Dr. Donta Echavarria Monitor lab Transfuse if hemoglobin less than seven Stool for occult blood Protonix and Carafate Supportive management recommended at this time We will review last colonoscopy Date performed Discussed plan with patient and RN Thank you for this consult Date of Service: Oct 23, 2024 Billing Provider: NORMA STEELE Common Visit Codes: CONSULT ONLY Consultation Codes: [id number] CONSULT <45MIN NORMA STEELE Oct 23, 2024 12:40
[2024-10-23] MEDS ORDERED: MORPHINE SULFATE INJ 2 MG/ml SYRG IV PRN (12:45)
[2024-10-23] MEDS: HYDROcodone-ACET 5/325MG TAB PO PRN (13:07)
--- NOTE | 2024-10-23 17:08 | DVHPN2 ---
Subjective I am assuming the care of the patient from today on beds. Patient was complaining of black tarry stools currently hemoglobin is stable. 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 Medications Current Medications Medications Dose Ordered Sig/Leonor Route Start Time Stop Time Status Last Admin Dose Admin Pantoprazole Sodium 40 mg BID IV 10/22/24 22:00 10/23/24 10:00 40 MG Amiodarone HCl 200 mg Q12HR PO 10/22/24 22:00 10/22/24 22:27 200 MG Donepezil HCl 10 mg HS PO 10/22/24 22:00 10/22/24 22:27 10 MG Levothyroxine Sodium 75 mcg QAM@0600 PO 10/23/24 06:00 10/23/24 05:43 75 MCG Metoprolol Succinate 25 mg DAILY PO 10/23/24 10:00 Albuterol 2.5 mg Q6HPRN PRN NEB 10/22/24 14:15 10/23/24 09:39 2.5 MG Ondansetron HCl 4 mg Q4HP PRN IV 10/22/24 14:15 Diagnostic Test (Pha) 1 strip Q6HR 10/22/24 18:00 10/23/24 05:43 1 STRIP Insulin Human Regular Q6HR SC 10/22/24 18:00 Dextrose 50 ml UD PRN IV 10/22/24 14:15 Morphine Sulfate 2 mg Q4HPRN PRN IV 10/23/24 12:45 Acetaminophen/ Hydrocodone Bitart 1 tab Q4HPRN PRN PO 10/23/24 12:45 10/23/24 13:07 1 TAB Laboratory Results Laboratory Tests 10/23/24 06:23 8/1/25 08:46 Chemistry Test 10/23/24 06:23 Calcium Level 10.5 mg/dL (8.7-10.4) H Urinalysis Test 10/23/24 05:10 Urine Color Yellow (Yellow) Urine Clarity Clear (Clear) Urine pH 6.0 (5.0-9.0) Urine Specific [place] 1.019 (1.001-1.035) Urine Protein Trace (Negative) H Urine Ketones Negative (Negative) Urine Blood Negative /uL (Negative) Urine Nitrite Negative (Negative) Urine Bilirubin Negative (Negative) Urine Urobilinogen Normal mg/dL (Negative) Urine Leukocyte Esterase 1+ /uL (Negative) Urine RBC None seen /hpf (0 - 4) Urine Microscopic WBC 12 /HPF (0-5) H Urine Squamous Epithelial Cells Few /hpf (<5) Urine Bacteria None seen /hpf (None Seen) Urine Hyaline Casts Mod /lpf (0 - 2) Urine Mucus Few (None Seen) Urine Glucose Normal mg/dL (Normal) Assessment/Plan Assessment/Plan 79-year-old female with a known history of hypertension, COPD, congestive heart failure, history of DVT, hypothyroidism, history of chronic anemia currently taking iron pills presented to the hospital with black tarry stools found to have 1. Melanotic stools ruled out upper GI bleed 2. Chronic anemia 3. History of DVT currently on Xarelto 4. Reason esophagitis and gastritis 5. Hypertension 6. COPD 7. Congestive heart failure unspecified according already on exacerbation 8. History of DVT 9. Hypothyroidism -monitor H&H follow up GI recommendations, continue Protonix Plan discussed with: Patient My Orders Orders - PREMA PERES MD Procedure Category Date Status Time Morphine Sulfate PHA 10/23/24 In Process Injection 12:45 Hydrocodone-Acet PHA 10/23/24 In Process 5/325mg Tab ([place] 12:45 Cleanse Wound With MARGI 10/23/24 In Process Wound Clean 11:25 * Dietary Consult CONS 10/23/24 Transmitted 15:30 Date of Service: Oct 23, 2024 Billing Provider: PREMA PERES MD Common Visit Codes: [id number] INP/OBS CARE(MOD) PREMA PERES MD Oct 23, 2024 17:08
[2024-10-24] VITALS (11 sets, daily range): BP systolic 124–155; BP diastolic 38–65; PULSE 63–65; RESP 16–20; TEMP 97.7–98.2; O2SAT 97–100
--- NOTE | 2024-10-24 17:04 | DVHDS2 ---
Discharge Summary Date of Admission Oct 22, 2024 at 14:07 Date of Discharge: Oct 24, 2024 Labs/Diagnostic Data: Laboratory Results Test 10/24/24 12:36 10/23/24 12:15 10/23/24 08:46 10/23/24 06:23 POC Glucose 80 mg/dl (70-106) Stool Occult Blood Positive x 1 (Negative) Stool Occult Blood Sample #3 (Negative) White Blood Count 9.0 10^3/uL (4.4-10.8) Red Blood Count 2.82 10^6/uL (4.0-5.20) Hemoglobin 8.6 g/dL (12.2-16.2) Hematocrit 27.5 % (36.0-46.0) Mean Corpuscular Volume 97.3 fL (80.0-100.0) Mean Corpuscular Hemoglobin 30.5 pg (28.0-32.0) Mean Corpuscular Hemoglobin Concent 31.3 g/dL (32.0-36.0) Red Cell Distribution Width 18.3 % (11.8-14.3) Platelet Count 455 10^3/uL (140-450) Mean Platelet Volume 7.0 fL (6.9-10.8) Neutrophils (%) (Auto) 67.2 % (37.0-80.0) Lymphocytes (%) (Auto) 20.5 % (10.0-50.0) Monocytes (%) (Auto) 8.6 % (0.0-12.0) Eosinophils (%) (Auto) 2.9 % (0.0-7.0) Basophils (%) (Auto) 0.8 % (0.0-2.0) Neutrophils # (Auto) 6.0 10 ^3/uL (1.6-8.6) Lymphocytes # (Auto) 1.8 10 ^3/uL (0.4-5.4) Monocytes # (Auto) 0.8 10 ^3/uL (0-1.3) Eosinophils # (Auto) 0.3 10 ^3/uL (0-0.8) Basophils # (Auto) 0.1 10 ^3/uL (0-0.2) Nucleated Red Blood Cells 0.1 % Sodium Level 145 mmol/L (136-145) Potassium Level 3.9 mmol/L (3.5-5.1) Chloride Level 114 mmol/L (98-107) Carbon Dioxide Level 19 mmol/L (20-31) Anion Gap 12 (5-15) Blood Urea Nitrogen 24 mg/dL (9-23) Creatinine 0.91 mg/dL (0.550-1.02) Glomerular Filtration Rate Calc 64 mL/min (>90) BUN/Creatinine Ratio 26.4 (10.0-20.0) Serum Glucose 89 mg/dL (74-106) Calcium Level 10.5 mg/dL (8.7-10.4) Test 10/23/24 05:10 10/22/24 11:01 Urine Color Yellow (Yellow) Urine Clarity Clear (Clear) Urine pH 6.0 (5.0-9.0) Urine Specific [place] 1.019 (1.001-1.035) Urine Protein Trace (Negative) Urine Ketones Negative (Negative) Urine Blood Negative /uL (Negative) Urine Nitrite Negative (Negative) Urine Bilirubin Negative (Negative) Urine Urobilinogen Normal mg/dL (Negative) Urine Leukocyte Esterase 1+ /uL (Negative) Urine RBC None seen /hpf (0 - 4) Urine Microscopic WBC 12 /HPF (0-5) Urine Squamous Epithelial Cells Few /hpf (<5) Urine Bacteria None seen /hpf (None Seen) Urine Hyaline Casts Mod /lpf (0 - 2) Urine Mucus Few (None Seen) Urine Glucose Normal mg/dL (Normal) Prothrombin Time 11.9 sec (9.3-11.8) Prothrombin Time INR 1.14 (0.9-1.15) Activated Partial Thromboplast Time 28.0 SEC (24.5-34.5) B-Type Natriuretic Peptide 66.87 pg/mL (0-100) Other Laboratory Tests 10/23/24 08:46 10/23/24 06:23 Brief Hx & Hospital Course: 79-year-old female with a known history of hypertension, COPD, congestive heart failure, history of DVT, hypothyroidism, history of chronic anemia currently taking iron pills presented to the hospital with black tarry stools found to have 1. Melanotic stools ruled out upper GI bleed 2. Chronic anemia 3. History of DVT currently on Xarelto 4. Reason esophagitis and gastritis 5. Hypertension 6. COPD 7. Congestive heart failure unspecified according already on exacerbation 8. History of DVT 9. Hypothyroidism Final Diagnosis/Problems List 79-year-old female with a known history of hypertension, COPD, congestive heart failure, history of DVT, hypothyroidism, history of chronic anemia currently taking iron pills presented to the hospital with black tarry stools found to have 1. Melanotic stools ruled out upper GI bleed 2. Chronic anemia 3. History of DVT currently on Xarelto 4. Reason esophagitis and gastritis 5. Hypertension 6. COPD 7. Congestive heart failure unspecified according already on exacerbation 8. History of DVT 9. Hypothyroidism Discharge Disposition: Home with Health Services Discharge Instruct/Medications Diet: Cardiac 2g Na,low cholest Activity: No Restrictions, As Tolerated Follow Up/Referral: Follow up with the PCP in one week Follow up with GI in 1-2 weeks. Medications: Resume home medication including Protonix or omeprazole. Scheduled Albuterol Sulfate (Albuterol Sulfate Hfa), 2 PUFF INH Q4HR, (Reported) Amiodarone HCl (Amiodarone HCl), 1 TAB PO BID, (Reported) Ascorbic Acid (Vitamin C Tablet), 500 MG PO DAILY, (Reported) Cetirizine HCl (Cetirizine Hydrochloride), 1 TAB PO DAILY, (Reported) Cholecalciferol (Gnp Vitamin D), 1 TAB PO DAILY, (Reported) Docusate Sodium (Docusate Sodium), 1 CAP PO QHSP, (Reported) Donepezil Hydrochloride (Donepezil Hcl), 1 TAB PO DAILY, (Reported) Ferrous Sulfate (Ferosul), 1 TAB PO DAILY, (Reported) Folic Acid (Folic Acid), 1 MG PO DAILY, (Reported) Levothyroxine Sodium (Levothyroxine Sodium), 75 MCG PO DAILY, (Reported) Metoprolol Succinate (Metoprolol Succinate Er), 1 TAB PO DAILY, (Reported) Omeprazole (Omeprazole Dr), 1 CAP PO DAILY, (Reported) Potassium Chloride (Klor-Con M20), 20 MEQ PO DAILY, (Reported) Rivaroxaban (Xarelto Tablet), 1 TAB PO DAILY, (Reported) Miscellaneous Medications Donepezil Hydrochloride (Donepezil Hcl), 1 TAB PO, (Reported) Oyster Shell Calcium (Calcium Oyster Shell), (Reported) Discharge Statement: "Patient was advised to return to the ER or call 911 if any headaches, dizziness, shortness of breath, chest pain, abdominal pain, bleeding, fevers, or worsening of medical condition. Patient was counseled about treatment plan, medications, possible side effects, patientverbalized understanding. All questions were answered to the best of my ability. This discharge took greater then 30 minutes in planning, reviewing documentation, counseling the patient, and discussing with other team members." ASSESSMENT ASSESSMENT Assessment 79-year-old female with a known history of hypertension, COPD, congestive heart failure, history of DVT, hypothyroidism, history of chronic anemia currently taking iron pills presented to the hospital with black tarry stools found to have 1. Melanotic stools ruled out upper GI bleed 2. Chronic anemia 3. History of DVT currently on Xarelto 4. Reason esophagitis and gastritis 5. Hypertension 6. COPD 7. Congestive heart failure unspecified according already on exacerbation 8. History of DVT 9. Hypothyroidism PREMA PERES MD Oct 24, 2024 17:04
[2024-10-24] MEDS: RIVAROXABAN 20 MG TAB PO SCH (18:00)
[2024-10-25] VITALS (9 sets, daily range): BP systolic 108–158; BP diastolic 63–76; PULSE 62–68; RESP 16–20; TEMP 97.6–98.2; O2SAT 98–100
--- NOTE | 2024-10-25 16:31 | DVHPN2 ---
Subjective Patient is currently stools are brownish color, no more black tarry stools. 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 Medications Current Medications Medications Dose Ordered Sig/Leonor Route Start Time Stop Time Status Last Admin Dose Admin Pantoprazole Sodium 40 mg BID IV 10/22/24 22:00 10/25/24 09:10 40 MG Amiodarone HCl 200 mg Q12HR PO 10/22/24 22:00 10/25/24 09:10 200 MG Donepezil HCl 10 mg HS PO 10/22/24 22:00 10/24/24 21:56 10 MG Levothyroxine Sodium 75 mcg QAM@0600 PO 10/23/24 06:00 10/25/24 05:45 75 MCG Metoprolol Succinate 25 mg DAILY PO 10/23/24 10:00 10/25/24 09:09 25 MG Albuterol 2.5 mg Q6HPRN PRN NEB 10/22/24 14:15 10/23/24 09:39 2.5 MG Ondansetron HCl 4 mg Q4HP PRN IV 10/22/24 14:15 Diagnostic Test (Pha) 1 strip Q6HR 10/22/24 18:00 10/25/24 12:26 1 STRIP Insulin Human Regular Q6HR SC 10/22/24 18:00 Dextrose 50 ml UD PRN IV 10/22/24 14:15 Morphine Sulfate 2 mg Q4HPRN PRN IV 10/23/24 12:45 Acetaminophen/ Hydrocodone Bitart 1 tab Q4HPRN PRN PO 10/23/24 12:45 10/24/24 14:00 1 TAB Rivaroxaban 20 mg QPM PO 10/24/24 18:00 10/24/24 18:00 20 MG Laboratory Results Laboratory Tests 10/23/24 06:23 10/23/24 08:46 Urinalysis Test 10/23/24 05:10 Urine Color Yellow (Yellow) Urine Clarity Clear (Clear) Urine pH 6.0 (5.0-9.0) Urine Specific [place] 1.019 (1.001-1.035) Urine Protein Trace (Negative) H Urine Ketones Negative (Negative) Urine Blood Negative /uL (Negative) Urine Nitrite Negative (Negative) Urine Bilirubin Negative (Negative) Urine Urobilinogen Normal mg/dL (Negative) Urine Leukocyte Esterase 1+ /uL (Negative) Urine RBC None seen /hpf (0 - 4) Urine Microscopic WBC 12 /HPF (0-5) H Urine Squamous Epithelial Cells Few /hpf (<5) Urine Bacteria None seen /hpf (None Seen) Urine Hyaline Casts Mod /lpf (0 - 2) Urine Mucus Few (None Seen) Urine Glucose Normal mg/dL (Normal) Microbiology Microbiology Date/Time Source Procedure Growth Status 10/24/24 05:00 Nose MRSA Screen - Final Complete Assessment/Plan Assessment/Plan 79-year-old female with a known history of hypertension, COPD, congestive heart failure, history of DVT, hypothyroidism, history of chronic anemia currently taking iron pills presented to the hospital with black tarry stools found to have 1. Melanotic stools ruled out upper GI bleed 2. Chronic anemia 3. History of DVT currently on Xarelto 4. Reason esophagitis and gastritis 5. Hypertension 6. COPD 7. Congestive heart failure unspecified according already on exacerbation 8. History of DVT 9. Hypothyroidism -monitor H&H follow up GI recommendations, continue Protonix Plan discussed with: Patient, Other My Orders Orders - PREMA PERES MD Procedure Category Date Status Time Discharge DISCHARGE 10/24/24 Transmitted 17:02 Rivaroxaban Tablet PHA 10/24/24 In Process (Xarelto Tablet) 18:00 Pt Request For Service PT 10/24/24 Logged 17:23 Date of Service: Oct 24, 2024 Billing Provider: PREMA PERES MD Common Visit Codes: [id number] INP/OBS CARE(MOD) PREMA PERES MD Oct 25, 2024 16:31
--- NOTE | 2024-10-25 16:31 | DVHDS2 ---
Discharge Summary Date of Admission Oct 22, 2024 at 14:07 Date of Discharge: Oct 24, 2024 Labs/Diagnostic Data: Laboratory Results Test 10/25/24 12:24 10/23/24 12:15 10/23/24 08:46 10/23/24 06:23 POC Glucose 91 mg/dl (70-106) Stool Occult Blood Positive x 1 (Negative) Stool Occult Blood Sample #3 (Negative) White Blood Count 9.0 10^3/uL (4.4-10.8) Red Blood Count 2.82 10^6/uL (4.0-5.20) Hemoglobin 8.6 g/dL (12.2-16.2) Hematocrit 27.5 % (36.0-46.0) Mean Corpuscular Volume 97.3 fL (80.0-100.0) Mean Corpuscular Hemoglobin 30.5 pg (28.0-32.0) Mean Corpuscular Hemoglobin Concent 31.3 g/dL (32.0-36.0) Red Cell Distribution Width 18.3 % (11.8-14.3) Platelet Count 455 10^3/uL (140-450) Mean Platelet Volume 7.0 fL (6.9-10.8) Neutrophils (%) (Auto) 67.2 % (37.0-80.0) Lymphocytes (%) (Auto) 20.5 % (10.0-50.0) Monocytes (%) (Auto) 8.6 % (0.0-12.0) Eosinophils (%) (Auto) 2.9 % (0.0-7.0) Basophils (%) (Auto) 0.8 % (0.0-2.0) Neutrophils # (Auto) 6.0 10 ^3/uL (1.6-8.6) Lymphocytes # (Auto) 1.8 10 ^3/uL (0.4-5.4) Monocytes # (Auto) 0.8 10 ^3/uL (0-1.3) Eosinophils # (Auto) 0.3 10 ^3/uL (0-0.8) Basophils # (Auto) 0.1 10 ^3/uL (0-0.2) Nucleated Red Blood Cells 0.1 % Sodium Level 145 mmol/L (136-145) Potassium Level 3.9 mmol/L (3.5-5.1) Chloride Level 114 mmol/L (98-107) Carbon Dioxide Level 19 mmol/L (20-31) Anion Gap 12 (5-15) Blood Urea Nitrogen 24 mg/dL (9-23) Creatinine 0.91 mg/dL (0.550-1.02) Glomerular Filtration Rate Calc 64 mL/min (>90) BUN/Creatinine Ratio 26.4 (10.0-20.0) Serum Glucose 89 mg/dL (74-106) Calcium Level 10.5 mg/dL (8.7-10.4) Test 10/23/24 05:10 10/22/24 11:01 Urine Color Yellow (Yellow) Urine Clarity Clear (Clear) Urine pH 6.0 (5.0-9.0) Urine Specific [place] 1.019 (1.001-1.035) Urine Protein Trace (Negative) Urine Ketones Negative (Negative) Urine Blood Negative /uL (Negative) Urine Nitrite Negative (Negative) Urine Bilirubin Negative (Negative) Urine Urobilinogen Normal mg/dL (Negative) Urine Leukocyte Esterase 1+ /uL (Negative) Urine RBC None seen /hpf (0 - 4) Urine Microscopic WBC 12 /HPF (0-5) Urine Squamous Epithelial Cells Few /hpf (<5) Urine Bacteria None seen /hpf (None Seen) Urine Hyaline Casts Mod /lpf (0 - 2) Urine Mucus Few (None Seen) Urine Glucose Normal mg/dL (Normal) Prothrombin Time 11.9 sec (9.3-11.8) Prothrombin Time INR 1.14 (0.9-1.15) Activated Partial Thromboplast Time 28.0 SEC (24.5-34.5) B-Type Natriuretic Peptide 66.87 pg/mL (0-100) Other Laboratory Tests 10/23/24 08:46 10/23/24 06:23 Brief Hx & Hospital Course: 79-year-old female with a known history of hypertension, COPD, congestive heart failure, history of DVT, hypothyroidism, history of chronic anemia currently taking iron pills presented to the hospital with black tarry stools found to have acute on chronic anemia. Patient does have known history of DVT currently on Xarelto. Patient was seen by GI patient hemoglobin remained stable and she has a regular bowel movements. Patient is being discharged under stable condition. Condition at Discharge: Stable Final Diagnosis/Problems List 79-year-old female with a known history of hypertension, COPD, congestive heart failure, history of DVT, hypothyroidism, history of chronic anemia currently taking iron pills presented to the hospital with black tarry stools found to have 1. Melanotic stools ruled out upper GI bleed 2. Chronic anemia 3. History of DVT currently on Xarelto 4. Reason esophagitis and gastritis 5. Hypertension 6. COPD 7. Congestive heart failure unspecified according already on exacerbation 8. History of DVT 9. Hypothyroidism Discharge Disposition: Home with Health Services SNF Discharge Will this Physician continue t: No Discharge Instruct/Medications Diet: Cardiac 2g Na,low cholest Activity: No Restrictions, As Tolerated Follow Up/Referral: Follow up with the PCP in one week Follow up with GI in 1-2 weeks. Medications: Resume home medication including Protonix or omeprazole. Scheduled Albuterol Sulfate (Albuterol Sulfate Hfa), 2 PUFF INH Q4HR, (Reported) Amiodarone HCl (Amiodarone HCl), 1 TAB PO BID, (Reported) Ascorbic Acid (Vitamin C Tablet), 500 MG PO DAILY, (Reported) Cetirizine HCl (Cetirizine Hydrochloride), 1 TAB PO DAILY, (Reported) Cholecalciferol (Gnp Vitamin D), 1 TAB PO DAILY, (Reported) Docusate Sodium (Docusate Sodium), 1 CAP PO QHSP, (Reported) Donepezil Hydrochloride (Donepezil Hcl), 1 TAB PO DAILY, (Reported) Ferrous Sulfate (Ferosul), 1 TAB PO DAILY, (Reported) Folic Acid (Folic Acid), 1 MG PO DAILY, (Reported) Levothyroxine Sodium (Levothyroxine Sodium), 75 MCG PO DAILY, (Reported) Metoprolol Succinate (Metoprolol Succinate Er), 1 TAB PO DAILY, (Reported) Omeprazole (Omeprazole Dr), 1 CAP PO DAILY, (Reported) Potassium Chloride (Klor-Con M20), 20 MEQ PO DAILY, (Reported) Rivaroxaban (Xarelto Tablet), 1 TAB PO DAILY, (Reported) Miscellaneous Medications Donepezil Hydrochloride (Donepezil Hcl), 1 TAB PO, (Reported) Oyster Shell Calcium (Calcium Oyster Shell), (Reported) Discharge Statement: "Patient was advised to return to the ER or call 911 if any headaches, dizziness, shortness of breath, chest pain, abdominal pain, bleeding, fevers, or worsening of medical condition. Patient was counseled about treatment plan, medications, possible side effects, patientverbalized understanding. All questions were answered to the best of my ability. This discharge took greater then 30 minutes in planning, reviewing documentation, counseling the patient, and discussing with other team members." ASSESSMENT ASSESSMENT Assessment 79-year-old female with a known history of hypertension, COPD, congestive heart failure, history of DVT, hypothyroidism, history of chronic anemia currently taking iron pills presented to the hospital with black tarry stools found to have 1. Melanotic stools ruled out upper GI bleed 2. Chronic anemia 3. History of DVT currently on Xarelto 4. Reason esophagitis and gastritis 5. Hypertension 6. COPD 7. Congestive heart failure unspecified according already on exacerbation 8. History of DVT 9. Hypothyroidism Date of Service: Oct 24, 2024 Billing Provider: PREMA PERES MD Common Visit Codes: [id number] DISCH DAY >30min PREMA PERES MD Oct 25, 2024 16:31
--- NOTE | 2024-10-28 10:42 | ECG ---
[facility] Test Date: 2024-10-22 Test Time: 10:04:03 Pat Name: RONALD LUCERO Department: ER Room: [facility] B Gender: F [employer]: ANNA : 1945 Requested By: EMERGENCY EMERGENCY Order Number: [id number] Reading MD: Eulalio Ramos Measurements Intervals [place] Rate: 65 P: 0 VT: 223 QRS: 24 QRSD: 95 T: 60 QT: 428 QTc: 445 Interpretive Statements Atrial-paced rhythm Electronically Signed On 11-02-2024 16:52:46 PDT by Eulalio Ramos Please click the below link to view image of tracing.
== END 2024-10-25 17:44 | disposition home or self-care (01) | DRG 377 ==
LOC: ER 09:57 → OVERFLOW 14:07 → WEST WING 18:00
PROVIDERS: ADMIT Internal Medicine; ATTEND Internal Medicine
DX: K29.71 Gastritis, unspecified, with bleeding (principal); I50.33 Acute on chronic diastolic (congestive) heart failure; I82.413 Acute embolism and thrombosis of femoral vein, bilateral; K21.01 Gastro-esophageal reflux disease with esophagitis, with bleeding; D64.9 Anemia, unspecified; E11.9 Type 2 diabetes mellitus without complications; K44.9 Diaphragmatic hernia without obstruction or gangrene; E03.9 Hypothyroidism, unspecified; I11.0 Hypertensive heart disease with heart failure; I48.91 Unspecified atrial fibrillation; J44.89 Other specified chronic obstructive pulmonary disease; Z79.01 Long term (current) use of anticoagulants; Z88.0 Allergy status to penicillin; Z88.1 Allergy status to other antibiotic agents; Z95.0 Presence of cardiac pacemaker; Z99.81 Dependence on supplemental oxygen; Z88.8 Allergy status to other drugs, medicaments and biological substances; Z79.899 Other long term (current) drug therapy; Z90.49 Acquired absence of other specified parts of digestive tract; Z98.891 History of uterine scar from previous surgery
CPT/HCPCS: 36415; 80048; 81001; 82270; 82962; 83880; 85014; 85018; 85025; 85610; 85730; 86850; 86900; 86901; 87081; 93005; 93970; 94640; 96374; 97163; G0378; J2470